=== PATIENT | female | born 1965 | race American Indian/Alaskan Native ===

== ENCOUNTER 2016-10-12 17:29 | Inpatient (IN) | payer OTHER ==
[~2016-10-12] VITALS: Ht 152.4 cm; Wt 102.5 kg
[~2016-10-12 17:29] MED LIST: ACET325 PO; AMIT50 PO; APIX5TAB PO; BISA PO; BRIM0.2S EACH EYE; CLEAPOW6 PO; COLL30OI3 TOP; DORZO2%O EACH EYE; GABA600T PO; GLUC1KIT IM; GLUC40GE PO; HYDR50TA15 PO; LACT10SO47 PO; LANTUS2P SQ; LISI-363 PO; METO25 PO; MONT10TA2 PO; NITR0.4S SL; NOVOLOGP2 SQ; PRAV40TA2 PO; PRIL20CA PO
[2016-10-12 18:11] VITALS: BP 110/57; PULSE 59; RESP 18; TEMP 98.8; O2SAT 97
[2016-10-12] MEDS ORDERED: SODIUM CHLOR 0.9% 1000 ML INJ 1,000 ML IV ONE (18:15)
--- NOTE | 2016-10-12 18:51 | PD ---
HPI . Abnormal labs Chief Complaint: Abnormal Results Time Seen by Provider: 18:09 Travel History International Travel<30 days: No Contact w/Intl Traveler<30days: No Traveled to known affect area: No History of Present Illness HPI This patient presents to us from a local halfway with the chief complaint of acute renal failure. She has reportedly had decreased urine output over the course the last several days. She has also been feeling very poorly over the last several days. She has had some labs checked at the halfway and her kidney function is markedly worse than her baseline. The patient is unaware of any moderating factors. I have reviewed her records from the halfway. Her medical history is significant for a chronic wound on her left lower extremity with osteomyelitis. He has been receiving antibiotics through a PICC line for probably a year now. At least, she was already on IV antibiotics when she was seen here in August 2015. I do not have any idea whether or not the antibiotics have been continuous. The patient states that she has developed red man syndrome from vancomycin. That has been a recent development. Other medical history includes atrial fibrillation, COPD, hypertension, diabetes , anemia, obesity, ALEXANDRA, previous PE previous GI bleed, blindness. Her previous creatinines done here had been in the 1-1.5 range. The patient has some labs from October 10 with repeat labs done today. 10/10: 10/12: BUN/creat 86/5.93 94/7.4 K+ 6.3 6.4 Hgb 7.4 She has a UA that is positive for UTI. She was reportedly treated with Kayexalate before being sent to us. PFSH Past Medical History Hx Anticoagulant Therapy: Yes Arthritis: Yes Asthma: No Autoimmune Disease: No Anxiety: No Depression: No (Patient states she is not depressed) Heart Rhythm Problems: No Cancer: No Cardiovascular Problems: No High Cholesterol: Yes Chemotherapy: No Chest Pain: No Congestive Heart Failure: Yes (recently noted with diastolic dysfunction) COPD: No Cerebrovascular Accident: Yes Diabetes: Yes Diminished Hearing: No Endocrine: Yes Gastrointestinal Disorders: Yes GERD: Yes Genitourinary: Yes Hiatal Hernia: No Hypertension: Yes Immune Disorder: No Implanted Vascular Access Dvce: Yes Kidney Stones: No Musculoskeletal: No Neurologic: Yes Psychiatric: No Reproductive: No Respiratory: Yes Immunizations Current: Yes Migraines: No Radiation Therapy: No Renal Failure: Yes (chronic renal insufficiency) Seizures: No Sickle Cell Disease: No Sleep Apnea: Yes (Non-compliant with CPAP) Thyroid Disease: No Ulcer: No ?: Not Past Surgical History Abdominal Surgery: No AICD: No Arteriovenous Shunt: No Cardiac Surgery: No Ear Surgery: No Endocrine Surgery: No Eye Surgery: Yes (cataracts, AUGUST 10) Genitourinary Surgery: No Gynecologic Surgery: No Hysterectomy: No Insulin Pump: No Joint Replacement: No Oral Surgery: No Pacemaker: No Thoracic Surgery: No Other Surgery: Yes (recent right eye scraping) Social History Alcohol Use: No Tobacco Use: No Substance Use: No Allergies-Medications (Allergen,Severity, Reaction): Coded Allergies: morphine (Unverified Allergy, Unknown, 09/26/16) vancomycin (Verified Adverse Reaction, Unknown, Rash, 10/12/16) Reported Meds & Prescriptions Reported Meds & Active Scripts Active Review of Systems Except as stated in HPI: all other systems reviewed are Neg Genitourinary: Positive: Decreased Urinary Output Musculoskeletal: Positive: Arthralgias (left shoulder pain) Skin: Positive Rash Neurologic: Positive: Change in Mentation Physical Exam Narrative GENERAL: This patient is sleepy but is able to give us some history. SKIN: warm/dry. She has a dressing on her left lower extremity which has not yet been removed. She has a diffuse macular rash. HEAD: Normocephalic. EYES: Pupils equal and round. No scleral icterus. No injection or drainage. She is blind. ENT: No nasal bleeding or discharge. Mucous membranes pink and moist. NECK: Trachea midline. Full range of motion without pain.. CARDIOVASCULAR: Irregular rhythm with a controlled rate. RESPIRATORY: No accessory muscle use. Clear to auscultation. Breath sounds equal bilaterally. GASTROINTESTINAL: Abdomen soft. Nontender. Bowel sounds present. Nondistended. . MUSCULOSKELETAL: No obvious deformities. NEUROLOGICAL: Awake and alert. No obvious cranial nerve deficits. Motor grossly within normal limits. Normal speech. PSYCHIATRIC: Appropriate mood and affect; insight and judgment normal. Data Data Last Documented VS Vital Signs Date Time Temp Pulse Resp B/P (MAP) Pulse Ox O2 Delivery O2 Flow Rate FiO2 10/12/16 18:16 59 18 97 Room Air 10/12/16 18:11 98.8 110/57 (74) Orders Orders Electrocardiogram (10/12/16 18:09) Complete Blood Count With Diff (10/12/16 18:09) Comprehensive Metabolic Panel (10/12/16 18:09) Lactic Acid Sepsis Protocol (10/12/16 18:09) Urinalysis - C+S If Indicated (10/12/16 18:09) Blood Culture (10/12/16 18:09) Chest, Single Ap (10/12/16 18:09) Ecg Monitoring (10/12/16 18:09) Iv Access Insert/Monitor (10/12/16 18:09) Oximetry (10/12/16 18:09) Sodium Chlor 0.9% 1000 Ml Inj (Ns 1000 M (10/12/16 18:15) MDM Medical Decision Making Medical Screen Exam Complete: Yes Emergency Medical Condition: Yes Medical Record Reviewed: Yes (please see the history of present illness for pertinent records) Differential Diagnosis Differential diagnosis includes acute renal failure, worsening chronic renal failure, prerenal azotemia Narrative Course This patient presents to us from a halfway because of acute renal failure and hyperkalemia. She has reportedly been treated with Kayexalate prior to arrival. Her care will be turned over to the oncoming physician pending her workup. Diagnosis Primary Impression: Acute renal failure Qualified Codes: N17.9 - Acute kidney failure, unspecified Additional Impressions: Hyperkalemia UTI (urinary tract infection) Qualified Codes: N30.00 - Acute cystitis without hematuria Greta Martell MD Oct 12, 2016 18:51
[2016-10-12 19:01] VITALS: BP 110/57; PULSE 59; RESP 16; O2SAT 97
--- NOTE | 2016-10-12 19:28 | RADRPT ---
EXAM DATE/TIME: 10/12/2016 18:24 [facility] COMPARISON: CHEST SINGLE AP, November 16, 2014, 20:52. INDICATIONS : Patient has general weakness and shortness of breath. MEDICAL HISTORY : Diabetes mellitus type 2. Hypertension. Stroke. Hyperkalemia SURGICAL HISTORY : Right eye surgery ENCOUNTER: Initial ACUITY: 1 day PAIN SCORE: 5/10 LOCATION: Left upper chest FINDINGS: The heart size is borderline enlarged. There is increased density seen at the left mid and lower lung . There is an area of linear density at the lateral right lung likely related to fluid in the right f issure. A significant effusion at the costophrenic angles is not seen. There is a PICC line in place from the right arm with the tip overlying the SVC. CONCLUSION: Suspected mild atelectasis or consolidation at the left base. The heart size is borderline enlarged. Ricco Fuentes MD on October 12, 2016 at 19:24 Board Certified Radiologist. This report was verified electronically.
[2016-10-12 19:37] LABS: AUTOMATED NEUTROPHIL # 6.7 TH/MM3 (1.8-7.7); BASOPHIL % 0.2 % (0.0-2.0); EOSINOPHIL # 0.2 TH/MM3 (0-0.4); EOSINOPHIL % 2.3 % (0.0-4.0); HEMATOCRIT 23.7 % (35.0-46.0); HEMO FLAGS DIFF FINAL; LYMPH % 8.2 % (9.0-44.0); LYMPHOCYTE # 0.7 TH/MM3 (1.0-4.8); MEAN CELL VOLUME 99.9 FL (80.0-100.0); MEAN CORPUSCULAR HEMOGLOBIN 31.8 PG (27.0-34.0); MEAN CORPUSCULAR HGB CONC 31.8 % (32.0-36.0); MONO % 6.4 % (0.0-8.0); NEUT % 82.9 % (16.0-70.0); PLATELET COUNT 240 TH/MM3 (150-450); RED BLOOD COUNT 2.37 MIL/MM3 (4.00-5.30); WHITE BLOOD COUNT 8.1 TH/MM3 (4.0-11.0)
[2016-10-12 19:51] LABS: ANION GAP 11 MEQ/L (5-15); AST (GOT) 14 U/L (15-37); BICARBONATE 15.8 MEQ/L (21.0-32.0); BLOOD UREA NITROGEN 88 MG/DL (7-18); CHLORIDE 111 MEQ/L (98-107); GLOMERULAR FILTRATION RATE 6 ML/MIN (>89); POTASSIUM 5.8 MEQ/L (3.5-5.1); SODIUM (NA) 138 MEQ/L (136-145)
[2016-10-12 19:53] LABS: ALT (GPT) 19 U/L (10-53)
[2016-10-12 19:55] LABS: ALKALINE PHOSPHATASE 404 U/L (45-117); TOTAL BILIRUBIN ADULT 0.6 MG/DL (0.2-1.0)
--- NOTE | 2016-10-12 20:05 | PD ---
Data Data Last Documented VS Vital Signs Date Time Temp Pulse Resp B/P (MAP) Pulse Ox O2 Delivery O2 Flow Rate FiO2 10/12/16 19:01 59 16 110/57 (74) 97 Room Air 10/12/16 18:11 98.8 Orders Orders Electrocardiogram (10/12/16 18:09) Complete Blood Count With Diff (10/12/16 18:09) Comprehensive Metabolic Panel (10/12/16 18:09) Lactic Acid Sepsis Protocol (10/12/16 18:09) Urinalysis - C+S If Indicated (10/12/16 18:09) Blood Culture (10/12/16 18:09) Chest, Single Ap (10/12/16 18:09) Ecg Monitoring (10/12/16 18:09) Iv Access Insert/Monitor (10/12/16 18:09) Oximetry (10/12/16 18:09) Sodium Chlor 0.9% 1000 Ml Inj (Ns 1000 M (10/12/16 18:15) Urinary Catheter Insert/Apply (10/12/16 19:25) Type And Screen (10/12/16 19:45) Random Vancomycin (10/12/16 20:01) Us Kidney/Renal/Bladder (10/12/16 ) Water Sterile For I... W/Sodium Bicarbon (10/12/16 20:15) Labs Laboratory Tests Test 10/12/16 18:15 White Blood Count 8.1 TH/MM3 Red Blood Count 2.37 MIL/MM3 Hemoglobin 7.5 GM/DL Hematocrit 23.7 % Mean Corpuscular Volume 99.9 FL Mean Corpuscular Hemoglobin 31.8 PG Mean Corpuscular Hemoglobin Concent 31.8 % Red Cell Distribution Width 20.0 % Platelet Count 240 TH/MM3 Mean Platelet Volume 8.1 FL Neutrophils (%) (Auto) 82.9 % Lymphocytes (%) (Auto) 8.2 % Monocytes (%) (Auto) 6.4 % Eosinophils (%) (Auto) 2.3 % Basophils (%) (Auto) 0.2 % Neutrophils # (Auto) 6.7 TH/MM3 Lymphocytes # (Auto) 0.7 TH/MM3 Monocytes # (Auto) 0.5 TH/MM3 Eosinophils # (Auto) 0.2 TH/MM3 Basophils # (Auto) 0.0 TH/MM3 CBC Comment DIFF FINAL Differential Comment Blood Urea Nitrogen 88 MG/DL Creatinine 7.53 MG/DL Random Glucose 130 MG/DL Total Protein 7.8 GM/DL Albumin 2.4 GM/DL Calcium Level 7.6 MG/DL Alkaline Phosphatase 404 U/L Aspartate Amino Transf (AST/SGOT) 14 U/L Alanine Aminotransferase (ALT/SGPT) 19 U/L Total Bilirubin 0.6 MG/DL Sodium Level 138 MEQ/L Potassium Level 5.8 MEQ/L Chloride Level 111 MEQ/L Carbon Dioxide Level 15.8 MEQ/L Anion Gap 11 MEQ/L Estimat Glomerular Filtration Rate 6 ML/MIN Lactic Acid Level 0.6 mmol/L MDM Supervised Visit with VIRGILIO: No Narrative Course The patient was initially evaluated by the previous provider in sign of any beginning of my shift pending labs and disposition. See her note for further details. Briefly this is a 51-year-old female with history of type 1 diabetes, COPD, legal blindness, anemia, hypertension, sent in from her shelter for worsening renal failure, decreased urine output, and generalized weakness. Apparently the patient has had worsening creatinine over the last several days. She was given Kayexalate in her shelter for hyperkalemia. Vital signs show heart rate 59, blood pressure 110/57, pulse ox 97% on room air , oral temp of 98.8F. Labs today show: Hemoglobin 7.5, hematocrit 23.7 BUN 88, creatinine 7.53, GFR 6, potassium 5.8, bicarbonate 15.8. Shah was placed with zero urine output. The patient was given a liter of normal saline IV by the previous provider. Case discussed with on-call steam tank operator Dr. Quiros. Patient is on IV vancomycin for lower extremity cellulitis. He would like a random vancomycin level to be ordered as well as a renal ultrasound. He would like the patient to be started on sterile water with 150 mg tablets of sodium bicarbonate at a rate of 100 cc per hour. Patient has history of chronic anemia. Her hemoglobin usually runs between 8 and 9. Today it is 7.5. Her stool is heme-negative and brown. Will hold on transfusion for now to avoid fluid overloading her. Case discussed with hospitalist Dr. Yen who will admit the patient to her service. Diagnosis Primary Impression: Acute renal failure Qualified Codes: N17.9 - Acute kidney failure, unspecified Additional Impressions: Hyperkalemia Anemia Qualified Codes: D64.9 - Anemia, unspecified Metabolic acidosis Admitting Information Admitting Physician Requests: Admit Shane Perdomo MD Oct 12, 2016 20:05
[2016-10-12] MEDS ORDERED: INSULIN HUMAN REGULAR 1,000 UNITS/10 ML VIAL IV PUSH ONE (20:15)
[2016-10-12] MEDS ORDERED: DEXTROSE 50% IN WATER 50 ML SYRINGE IV PUSH ONE (20:15)
[2016-10-12] MEDS ORDERED: SODIUM POLYSTYRENE SULFONATE SUSP 15 GM/60 ML CUP PO ONE (20:15)
[2016-10-12] MEDS ORDERED: SODIUM CHLORIDE 0.9% FLUSH 10 ML FLUSH IV FLUSH PRN (20:15)
[2016-10-12] MEDS ORDERED: GLUCAGON 1 MG/ML VIAL OTHER PRN (20:15)
[2016-10-12] MEDS ORDERED: SODIUM BICARBONATE 8.4% INJ 150 MEQ in WATER STERILE FOR INJ 850 ML IV SCH (20:15)
[2016-10-12] MEDS ORDERED: NALOXONE HCL 0.4 MG/ML AMP IV PRN (20:15)
[2016-10-12] MEDS ORDERED: CALCIUM GLUCONATE 10% 1 GM/10 ML VIAL IV PUSH ONE (20:15)
[2016-10-12] MEDS ORDERED: DEXTROSE 50% IN WATER 50 ML VIAL(D50) IV PRN (20:15)
[2016-10-12] MEDS ORDERED: INSULIN ASPART SUPPLEMENTAL SCALE SQ SCH (21:00)
[2016-10-12] MEDS: SODIUM CHLORIDE 0.9% FLUSH 10 ML FLUSH IV FLUSH SCH (21:00)
--- NOTE | 2016-10-12 22:27 | RADRPT ---
EXAM DATE/TIME: 10/12/2016 20:54 [facility] COMPARISON: US KIDNEY/RENAL/BLADDER, November 14, 2014, 16:54. INDICATIONS : Increased lab values. MEDICAL HISTORY : Hypercholesterolemia. Hypertension. Gastroesophageal reflux disease. Bilateral eye prosthesis. Cereb rovascular accident. Congestive heart failure. Chronic renal insufficiency. Arthritis. Diabetes. Depression. SURGICAL HISTORY : Cataracts surgery. ENCOUNTER: Initial ACUITY: 1 day PAIN SCORE: Nonresponsive. LOCATION: Bilateral flank MEASUREMENTS: RIGHT KIDNEY: 8.9 x 5.8 x 5.6 cm LEFT KIDNEY: 12.6 x 6.2 x 6.3 cm FINDINGS: RIGHT KIDNEY: Renal cortex is normal in thickness and echotexture. No hydronephrosis, stone, or mass. LEFT KIDNEY: Renal cortex is normal in thickness and echotexture. No hydronephrosis, stone, or mass. BLADDER: The bladder is not distended. CONCLUSION: Normal appearance of the kidneys. Ricco Fuentes MD on October 12, 2016 at 22:23 Board Certified Radiologist. This report was verified electronically.
[2016-10-12 23:00] VITALS: BP 105/51; PULSE 51; RESP 16; TEMP 98.7; O2SAT 94
[2016-10-12] MEDS ORDERED: CALCIUM GLUCONATE INJ 1 GM in SODIUM CHLORIDE 0.9% INJ 100 ML IV ONE (23:00)
[2016-10-12 23:41] LABS: POTASSIUM 5.7 MEQ/L (3.5-5.1)
[2016-10-13] VITALS (18 sets, daily range): BP systolic 74–144; BP diastolic 39–64; PULSE 47–72; RESP 12–18; TEMP 91–98; O2SAT 92–100
--- NOTE | 2016-10-13 00:24 | HHI.HP ---
HPI Service [facility] Primary Care Physician Ty Campbell MD Admission Diagnosis acute renal failure, anemia, hyperkalemia, metabolic acidosis Diagnoses: Chief Complaint: acute renal failure Travel History International Travel<30 Days: No Contact w/Intl Traveler <30 Da: No Traveled to Known Affected Are: No History of Present Illness Written by MARLON Saenz acting as scribe for [Yovana] on 10/13/16 at 00: 15. 51 y/o female with a history of DM, CVA, legally blind,neuropathy, COPD, HTN, anemia and sleep apnea was brought from a SNF to the ED for increasing renal failure. Patient states she has not been urinating since Sunday and a catheter was placed. She has been getting treated with lower extremity cellulitis with vancomycin and Zosyn through her picc line. She denies any chest pain, sob, fever, chills, nausea or diarrhea. She states she is in a wheelchair because she broke her left ankle and is unable to walk. She use to use a cpap at night but has not been for the last 6 months. Review of Systems Except as stated in HPI: all other systems reviewed are Neg Past Family Social History Past Medical History DM Legally blind COPD HTN anemia sleep apnea CVA neuropathy Afib Past Surgical History Patient denies any surgical history Reported Medications Reported Meds & Active Scripts Active Allergies: Coded Allergies: morphine (Unverified Allergy, Unknown, 09/26/16) vancomycin (Verified Adverse Reaction, Unknown, Rash, 10/12/16) Active Ordered Medications Current Medications Medications (Trade) Dose Ordered Sig/[place]air Route Start Time Stop Time Status Last Admin Sodium Bicarbonate 150 meq/Sterile Water 1,000 ml @ 100 mls/hr Q10H IV 10/12/16 20:15 10/12/16 23:39 (NS Flush) 2 ml UNSCH PRN IV FLUSH 10/12/16 20:15 (NS Flush) 2 ml BID IV FLUSH 10/12/16 21:00 (Heparin Inj) 5,000 units Q8H SQ 10/13/16 06:00 (Narcan Inj) 0.4 mg UNSCH PRN IV 10/12/16 20:15 (D50w (Vial) Inj) 50 ml UNSCH PRN IV 10/12/16 20:15 (Glucagon Inj) 1 mg UNSCH PRN OTHER 10/12/16 20:15 (NovoLOG SUPPLEMENTAL SCALE) 1 ACHS SLIDING SCALE SQ 10/12/16 21:00 Family History Patient denies any family history, no heart disease or cancer. Social History Patient denies any tobacco, alcohol or illicit drug use. Physical Exam Vital Signs Vital Signs Date Time Temp Pulse Resp B/P (MAP) Pulse Ox O2 Delivery O2 Flow Rate FiO2 10/12/16 23:00 98.7 51 16 105/51 (69) 94 10/12/16 19:01 59 16 110/57 (74) 97 Room Air 10/12/16 18:16 59 18 97 Room Air 10/12/16 18:11 98.8 59 18 110/57 (74) 97 Physical Exam GENERAL: This is a well-nourished, obese patient, in no apparent distress. morbidly obese SKIN: Erythema rash scattered on abdomen and bilateral thighs, non raised HEAD: Atraumatic. Normocephalic. No temporal or scalp tenderness. ENT: Nose without bleeding, purulent drainage or septal hematoma.Airway patent. NECK: Trachea midline. No JVD CARDIOVASCULAR: Regular rate and rhythm without murmurs, gallops, or rubs. RESPIRATORY: Clear to auscultation. Breath sounds equal bilaterally. No wheezes , rales, or rhonchi. GASTROINTESTINAL: Abdomen soft, non-tender, nondistended. No guarding. MUSCULOSKELETAL: Extremities without clubbing, cyanosis, or edema. No joint tenderness, effusion, or edema noted. No calf tenderness. chronic LE skin changes NEUROLOGICAL: Awake and alert. Motor and sensory grossly within normal limits. Normal speech. Laboratory Laboratory Tests Test 10/12/16 18:15 10/12/16 23:05 White Blood Count 8.1 Red Blood Count 2.37 Hemoglobin 7.5 Hematocrit 23.7 Mean Corpuscular Volume 99.9 Mean Corpuscular Hemoglobin 31.8 Mean Corpuscular Hemoglobin Concent 31.8 Red Cell Distribution Width 20.0 Platelet Count 240 Mean Platelet Volume 8.1 Neutrophils (%) (Auto) 82.9 Lymphocytes (%) (Auto) 8.2 Monocytes (%) (Auto) 6.4 Eosinophils (%) (Auto) 2.3 Basophils (%) (Auto) 0.2 Neutrophils # (Auto) 6.7 Lymphocytes # (Auto) 0.7 Monocytes # (Auto) 0.5 Eosinophils # (Auto) 0.2 Basophils # (Auto) 0.0 CBC Comment DIFF FINAL Differential Comment Blood Urea Nitrogen 88 90 Creatinine 7.53 7.55 Random Glucose 130 142 Total Protein 7.8 Albumin 2.4 Calcium Level 7.6 7.6 Alkaline Phosphatase 404 Aspartate Amino Transf (AST/SGOT) 14 Alanine Aminotransferase (ALT/SGPT) 19 Total Bilirubin 0.6 Sodium Level 138 140 Potassium Level 5.8 5.7 Chloride Level 111 112 Carbon Dioxide Level 15.8 15.0 Anion Gap 11 13 Estimat Glomerular Filtration Rate 6 6 Lactic Acid Level 0.6 Random Vancomycin Level 21.6 Date/Time Source Procedure Growth Status 10/12/16 18:30 Blood Peripheral Aerobic Blood Culture Pending Received 10/12/16 18:30 Blood Peripheral Anaerobic Blood Culture Pending Received Result Diagram: 10/12/16 1815 10/12/16 2305 Imaging Last Impressions Chest X-Ray 10/12/16 1809 Signed Impressions: Service Date/Time: September 18:24 - CONCLUSION: Suspected mild atelectasis or consolidation at the left base. The heart size is borderline enlarged. Ricco Fuentes MD Renal Ultrasound 10/12/16 0000 Signed Impressions: Service Date/Time: September 20:54 - CONCLUSION: Normal appearance of the kidneys. Ricco Fuentes MD Caprini VTE Risk Assessment Caprini VTE Risk Assessment: Mod/High Risk (score >= 2) Caprini Risk Assessment Model Point Value = 1 Point Value = 2 Point Value = 3 Point Value = 5 Age 41-60 Minor surgery BMI > 25 kg/m2 Swollen legs Varicose veins or History of unexplained or recurrent spontaneous Oral contraceptives or hormone replacement Sepsis (< 1 month) Serious lung disease, including pneumonia (< 1 month) Abnormal pulmonary function Acute myocardial infarction Congestive heart failure (< 1 month) History of inflammatory bowel disease Medical patient at bed rest Age 61-74 Arthroscopic surgery Major open surgery (> 45 min) Laparoscopic surgery (> 45 min) Malignancy Confined to bed (> 72 hours) Immobilizing plaster cast Central venous access Age >= 75 History of VTE Family history of VTE Factor V Leiden Prothrombin [id number] Lupus anticoagulant Anticardiolipin antibodies Elevated serum homocysteine Heparin-induced thrombocytopenia Other congenital or acquired thrombophilia Stroke (< 1 month) Elective arthroplasty Hip, pelvis, or leg fracture Acute spinal cord injury (< 1 month) Prophylaxis Regimen Total Risk Factor Score Risk Level Prophylaxis Regimen 0-1 Low Early ambulation 2 Moderate Order ONE of the following: *Sequential Compression Device (SCD) *Heparin 5000 units SQ BID 3-4 Higher Order ONE of the following medications: *Heparin 5000 units SQ TID *Enoxaparin/Lovenox 40 mg SQ daily (WT < 150 kg, CrCl > 30 mL/min) *Enoxaparin/Lovenox 30 mg SQ daily (WT < 150 kg, CrCl > 10-29 mL/min) *Enoxaparin/Lovenox 30 mg SQ BID (WT < 150 kg, CrCl > 30 mL/min) AND/OR *Sequential Compression Device (SCD) 5 or more Highest Order ONE of the following medications: *Heparin 5000 units SQ TID (Preferred with Epidurals) *Enoxaparin/Lovenox 40 mg SQ daily (WT < 150 kg, CrCl > 30 mL/min) *Enoxaparin/Lovenox 30 mg SQ daily (WT < 150 kg, CrCl > 10-29 mL/min) *Enoxaparin/Lovenox 30 mg SQ BID (WT < 150 kg, CrCl > 30 mL/min) AND *Sequential Compression Device (SCD) Assessment and Plan Problem List: (1) Acute renal failure ICD Code: N17.9 - Acute kidney failure, unspecified Status: Acute (2) Hyperkalemia ICD Code: E87.5 - Hyperkalemia Status: Acute (3) HTN (hypertension) ICD Code: I10 - Hypertension Status: Chronic (4) Diabetes mellitus type 2, uncontrolled ICD Code: E11.65 - Uncontrolled type 2 diabetes mellitus Status: Chronic Assessment and Plan 51 y/o female with a history of DM, CVA, legally blind,neuropathy, COPD, HTN, anemia and sleep apnea was brought from a SNF to the ED for increasing renal failure. Acute renal failure, creatinine 7.5, baseline 1.2, patient was on vacomyacin for cellulitis, vancomycin level 21.6 -Consult nephrology for recommendations, ED physician discussed case with Dr. Quiros who will see patient in AM -Renal ultrasound ordered, reviewed and shows normal appearance of the kidneys -IVF sodium bicarbonate 150meq and sterile water -Avoid nephrotoxins Hyperkalemia, potassium 5.8--> 5.7 -Treated with Kayexalate, D5 calcium and insulin -Patient may need hemodialysis -BMP in AM Anemia, chronic hemoglobin 7.5 -Continue to monitor and trend CBC COPD with Sleep apnea, chronic -CPAP at bedtime -Atrovent scheduled and when necessary Diabetes, chronic -Accu-Cheks with sliding scale insulin -Cont home long acting insulin HTN, chronic -Cont home medications -Monitor vitals DVT prophylaxis: Heparin This note was transcribed by scribe [Kylee Quinones]. I, Dr. Perico Yen personally performed the history, physical exam, and medical decision making; and confirmed the accuracy of the information in the transcribed note. Authenticated by Dr. Perico Yen on 10/13/16 at 00:15. Discussed Condition With Patient, RN, ED physician Physician Certification 2 Midnight Certification Type: Admission for Inpatient Services Order for Inpatient Services The services are ordered in accordance with Medicare regulations or non- Medicare payer requirements, as applicable. In the case of services not specified as inpatient-only, they are appropriately provided as inpatient services in accordance with the 2-midnight benchmark. Estimated LOS (days): 3 days is the estimated time the patient will need to remain in the hospital, assuming treatment plan goals are met and no additional complications. Post-Hospital Plan: SNF Problem Qualifiers (1) Acute renal failure: Qualified Codes: N17.9 - Acute kidney failure, unspecified Kylee Quinones Oct 13, 2016 00:24 Perico Yen MD Oct 13, 2016 05:02
[2016-10-13] MEDS ORDERED: AMIT50TA3 PO (00:33)
[2016-10-13] MEDS ORDERED: APIX2.5T PO (00:33)
[2016-10-13] MEDS ORDERED: GABA600T PO (00:33)
[2016-10-13] MEDS ORDERED: POLY17S PO (00:33)
[2016-10-13] MEDS ORDERED: LABE200T2 PO (00:33)
[2016-10-13] MEDS ORDERED: HYDR-3801 PO (00:33)
[2016-10-13] MEDS ORDERED: NYST15T TOPICAL (00:33)
[2016-10-13] MEDS ORDERED: PRAV40TA2 PO (00:33)
[2016-10-13] MEDS ORDERED: VITA250C3 CHEW (00:33)
[2016-10-13] MEDS ORDERED: NOVOLOGP2 SQ (00:33)
[2016-10-13] MEDS ORDERED: MONT10TA2 PO (00:33)
[2016-10-13] MEDS ORDERED: LACTTAB8 PO (00:33)
[2016-10-13] MEDS ORDERED: DIFL100T PO (00:33)
[2016-10-13] MEDS ORDERED: CLAR10CA3 PO (00:33)
[2016-10-13] MEDS ORDERED: ALBU0.08 NEB (00:33)
[2016-10-13] MEDS ORDERED: NIFE1TAB86 PO (00:33)
[2016-10-13] MEDS ORDERED: LANTUS2P SQ ×2 (00:33)
[2016-10-13] MEDS ORDERED: RESP: IPRATROPIUM 0.5 MG/2.5 ML NEB NEB PRN (00:45)
[2016-10-13 02:52] LABS: POTASSIUM 5.2 MEQ/L (3.5-5.1)
[2016-10-13 04:43] LABS: BLOOD GAS BASE EXCESS -11.9 mmol/L (-2-2); BLOOD GAS CARBOXYHEMOGLOBIN 1.8 % (0-4); BLOOD GAS HCO3 16 mmol/L (22-26); BLOOD GAS METHEMOGLOBIN 0.8 % (0-2); BLOOD GAS O2 HGB SATURATION 96 % (90-100); BLOOD GAS OXYGEN CONTENT 10.5 Vol % (12.0-20.0); BLOOD GAS PCO2 48 mmHg (38-42); BLOOD GAS PO2 139 mmHg (61-120); BLOOD GAS TOTAL HGB 7.6 G/DL (12.0-16.0); TEMP CORR TO 98.6
[2016-10-13 04:44] LABS: CRITICAL VALUE YES; DRAW SITE RT RADIAL; LITER FLOW 3 L/M; NUMBER OF ARTERIAL PUNCTURES 1; OXYGEN DEVICE NASAL CANNULA; STAT YES; ULNAR PULSE PRESENT
[2016-10-13] MEDS ORDERED: SODIUM CHLOR 0.9% 1000 ML INJ 1,000 ML IV ONE (04:45)
[2016-10-13] MEDS ORDERED: ATROPINE SULFATE 1 MG/10 ML SYRINGE IV ONE (05:00)
[2016-10-13] MEDS ORDERED: SODIUM BICARBONATE 8.4% INJ 50 MEQ/50 ML SYR IV ONE (05:00)
[2016-10-13] MEDS ORDERED: INSULIN DETEMIR 100 UNITS/ML VIAL SQ SCH ×2 (07:00→21:00)
[2016-10-13] MEDS ORDERED: NOREPINEPHRINE-DEXTROSE DRIP 250 ML IV ONE (07:25)
[2016-10-13] MEDS ORDERED: DEXTROSE 50% IN WATER 50 ML VIAL(D50) IV PUSH PRN (07:30)
[2016-10-13] MEDS ORDERED: NOREPINEPHRINE-DEXTROSE DRIP 250 ML IV PRN (07:30)
[2016-10-13] MEDS ORDERED: TERBUTALINE INJ 1 MG/ML AMP SQ PRN (07:30)
[2016-10-13] MEDS ORDERED: SODIUM BICARBONATE 8.4% INJ 50 MEQ/50 ML SYR IV PUSH ONE (07:30)
--- NOTE | 2016-10-13 07:31 | PD.CONS ---
[facility] Service Critical Care Medicine Consult Requested By Hospitalist Service Reason for Consult Hypotension, altered mental status Primary Care Physician Ty Campbell MD History of Present Illness This is a 51yF from a SNF who was being treated for chronic LLE cellulitis with approximately 6 months of vancomycin through an indwelling right arm PICC line, who presents with worsening creatinine found at her SNF and altered mental status. On arrival to the ED, she had a Cr 7.7, has a chronic indwelling black catheter and has not had any urine per report in the last few days. Renal ultrasound was negative for hydronephrosis. She also has a excoriating rash over her trunk and arms. She was initially admitted to the floor, but rapid responsed for hypotension and altered mental status. On my evaluation in the ICU , she is very altered and a poor historian. She endorses needing to have a bowel movement, though she has a rectal tube in place with large amount of liquid stool. She is quite agitated and is preventing a full history and physical exam. On bedside critical care echocardiogram, she has a hyperdynamic LV, mildly dilated RV, and clinically significant tricuspid regurgitation with an estimated trans-tricuspid gradient of ~60 mmHg. There is no pericardial effusion. IVC is dilated at 2.5cm without any respiratory variation. Critical care medicine is consulted to evaluate and manage her hypotension and altered mental status. She is additionally severely acidotic with a pH of 7.1, base deficit 10, pco2 48: she is not compensating appropriately. The remainder of the history is found from chart review due to the patient's clinical condition. Review of Systems ROS Limitations: Clinical Condition, Altered Mental Status, Uncooperative, Poor Historian Past Family Social History Allergies: Coded Allergies: morphine (Unverified Allergy, Unknown, 09/26/16) vancomycin (Verified Adverse Reaction, Unknown, Rash, 10/12/16) Past Medical History DM Legally blind COPD HTN anemia sleep apnea CVA neuropathy Afib Past Surgical History Patient denied any surgical history Reported Medications unknown and unobtainable secondary to the clinical condition of the patient. Per chart review, she was receiving IV vancomycin for chronic LLE cellulitis for an extended period of time. Active Ordered Medications See MAR Family History Patient denies any family history, no heart disease or cancer. Social History Patient denies any tobacco, alcohol or illicit drug use. Physical Exam Vital Signs Vital Signs Date Time Temp Pulse Resp B/P (MAP) Pulse Ox O2 Delivery O2 Flow Rate FiO2 10/13/16 07:20 95 21 10/13/16 04:45 99 Nasal Cannula 3.00 10/13/16 00:00 92.7 54 16 89/54 (66) 97 10/12/16 23:00 98.7 51 16 105/51 (69) 94 10/12/16 19:01 59 16 110/57 (74) 97 Room Air 10/12/16 18:16 59 18 97 Room Air 10/12/16 18:11 98.8 59 18 110/57 (74) 97 Physical Exam gen: middle-aged, morbidly obese female, lying in bed, altered, slightly agitated heent: perrl. mucous membranes moist. large tongue. neck: very large neck circumference. unable to assess jvd. trachea midline. chest: equal chest rise. distant breath sounds. clear to auscultation. cv: hypotensive, sbp 80s. bradycardic rate, regular rhythm, sinus by telemetry. abd: morbidly obese, soft, nontender, nondistended. rectal tube in place with liquid brown stool extr: 3+ peripheral edema. LLE wrapped in kierra bandage. distal pulses 1+. skin: there is a maculopapular rash which has areas of excoriation and scaling over the trunk and upper arms bilaterally. it does not ed[place]. neuro: RASS -2 or +1 intermittently. oriented to person and place. at times confused. moves all extremities and will follow commands volitionally. Laboratory Laboratory Tests Test 10/12/16 18:15 10/12/16 23:05 10/13/16 02:15 10/13/16 04:23 White Blood Count 8.1 Red Blood Count 2.37 Hemoglobin 7.5 Hematocrit 23.7 Mean Corpuscular Volume 99.9 Mean Corpuscular Hemoglobin 31.8 Mean Corpuscular Hemoglobin Concent 31.8 Red Cell Distribution Width 20.0 Platelet Count 240 Mean Platelet Volume 8.1 Neutrophils (%) (Auto) 82.9 Lymphocytes (%) (Auto) 8.2 Monocytes (%) (Auto) 6.4 Eosinophils (%) (Auto) 2.3 Basophils (%) (Auto) 0.2 Neutrophils # (Auto) 6.7 Lymphocytes # (Auto) 0.7 Monocytes # (Auto) 0.5 Eosinophils # (Auto) 0.2 Basophils # (Auto) 0.0 CBC Comment DIFF FINAL Differential Comment Blood Urea Nitrogen 88 90 90 Creatinine 7.53 7.55 7.70 Random Glucose 130 142 126 Total Protein 7.8 Albumin 2.4 Calcium Level 7.6 7.6 7.8 Alkaline Phosphatase 404 Aspartate Amino Transf (AST/SGOT) 14 Alanine Aminotransferase (ALT/SGPT) 19 Total Bilirubin 0.6 Sodium Level 138 140 140 Potassium Level 5.8 5.7 5.2 Chloride Level 111 112 114 Carbon Dioxide Level 15.8 15.0 14.0 Anion Gap 11 13 12 Estimat Glomerular Filtration Rate 6 6 6 Lactic Acid Level 0.6 Random Vancomycin Level 21.6 Blood Gas Puncture Site RT RADIAL Blood Gas Patient Temperature 98.6 Blood Gas HCO3 16 Blood Gas Base Excess -11.9 Blood Gas Oxygen Saturation 96 Arterial Blood pH 7.14 Arterial Blood Partial Pressure CO2 48 Arterial Blood Partial Pressure O2 139 Arterial Blood Oxygen Content 10.5 Arterial Blood Carboxyhemoglobin 1.8 Arterial Blood Methemoglobin 0.8 Blood Gas Hemoglobin 7.6 Oxygen Delivery Device NASAL CANNULA Blood Gas Liter Flow 3 Date/Time Source Procedure Growth Status 10/12/16 18:30 Blood Peripheral Aerobic Blood Culture Pending Received 10/12/16 18:30 Blood Peripheral Anaerobic Blood Culture Pending Received Result Diagram: 10/12/165 10/13/16 0215 Imaging Last Impressions Chest X-Ray 10/12/16 180 Signed Impressions: Service Date/Time: September 18:24 - CONCLUSION: Suspected mild atelectasis or consolidation at the left base. The heart size is borderline enlarged. Ricco Fuentes MD Renal Ultrasound 10/12/16 0000 Signed Impressions: Service Date/Time: September 20:54 - CONCLUSION: Normal appearance of the kidneys. Ricco Fuentes MD Assessment and Plan Assessment and Plan Assessment: 51yF with LLE cellulitis presents now with severe oligoanuric acute kidney injury and associated metabolic encephalopathy and hypotension. Although she does not have a leukocytosis, her anion-gap metabolic acidosis, her tachypnea, hypotension, hypothermia would all suggest that she could have underlying and ongoing severe sepsis with end-organ dysfunction, possibly progressing to septic shock. Her RV dilation with what may be severe tricuspid regurgitation additionally may be playing a clinically significant role in her hypotension. We will start epinephrine for RV support and inotropic support and norepinephrine as needed to keep MAP > 65 mmHg. She will likely need emergent dialysis for her acidosis as well as her severe uremia with metabolic encephalopathy, and nephrology has been consulted. ID is consulted to help discern the cause of the rash and if there is ongoing concomitant sepsis. I have placed the patient on Clindamycin to cover for MRSA bacteremia (given concern for vanc toxicity and vanc rash) and zosyn empirically for health care associated infections. She will need her PICC line and Black discontinued and new central access obtained as well as likely dialysis access. She is very altered and may not cooperate with her medical care, though she does clearly states she wants us to be aggressive and "fix her." She may progress to requiring intubation for either her progressive respiratory failure or our need to safely manage her multiple end-organ dysfunctions. She remains critically ill at this time with multiple organ systems which are currently life- threatening. Plan by systems: Neurologic: Metabolic Encephalopathy secondary to Uremia and possibly sepsis - frequent neuro checks - avoid long-acting sedating meds Respiratory: Obesity Hypoventilation Syndrome COPD Sleep Apnea - wean o2 for goal spo2 > 90% - aggressive incentive spirometry Cardiovascular: Severe sepsis Clinically significant Tricuspid Regurgitation Hypotension- likely secondary to severe sepsis Sinus bradycardia - epinephrine @ 2 mcg/min - levophed for goal map > 65 mmHg - place central access, d/c PICC line - place arterial line Renal: Acute oligo anuric kidney injury - nephrology consult - likely needs emergent IHD - likely will need vascath today -- Strict I/Os FEN/GI: Severe anion gap metabolic acidosis Severe non-anion gap metabolic acidosis (combined) Hyperkalemia Morbid Obesity - NPO while altered - may need HD for hyperkalemia. s/p medical management with kayexalate, d50, insulin. - trend lactates - 4 amps bicarb now for severe acidosis to help with cardiac function Heme/ID: Chronic anemia- likely secondary to chronic disease Possible severe sepsis LLE cellulitis - daily cbc - will not transfuse at this time given concern for possible volume overload from acute kidney injury - clindamycin and zosyn empirically - follow up cultures. - ID consult Endocrine: Diabetes -- SSI, medium scale, every 6 Prophylaxis: GI Prophylaxis Does not meet evidence based criteria for GI prophylaxis at this time DVT Prophylaxis -- SCDs Sub-cutaneous heparin Lines: - outside facility right arm PICC Line: will d/c and culture tip - outside facility black: will change out - will place arterial line, central line. will discuss with nephrology, likely will need vascath as well. Dispo: remain in the ICU. very critically ill today. This patient remains critically ill with one or more organ systems which are or may become a threat to life. I have spent in excess of 110 minutes discontinuously in the care and management of this patient. This time is exclusive of procedures, and includes, but is not limited to, evaluation of the patient, review of the medical record, discussions with family, consultants, nursing staff, or respiratory therapy, and documentation in the medical record. Code Status Full Code Jordon Haines MD Oct 13, 2016 07:31
[2016-10-13] MEDS ORDERED: NOREPINEPHRINE 16 MG/D5W 250 ML IV PRN ×2 (08:00)
[2016-10-13] MEDS ORDERED: LINEZOLID 600 MG PREMIX 300 ML IV SCH (08:00)
[2016-10-13] MEDS: LACTOBACILLUS ACIDOPHILUS TAB PO SCH ×3 (08:00→16:28)
[2016-10-13] MEDS ORDERED: SODIUM BICARBONATE 8.4% INJ 150 MEQ in DEXTROSE 5% IN WATE 1000ML INJ 1,000 ML IV SCH ×2 (08:00)
[2016-10-13] MEDS ORDERED: EPINEPHrine (1:1000) INJ 2 MG in DEXTROSE 5% IN WATER INJ 250 ML IV PRN ×2 (08:15)
[2016-10-13] MEDS ORDERED: MIDAZOLAM HCL 2 MG/2 ML VIAL IV PUSH ONE (08:15)
[2016-10-13] MEDS ORDERED: KETAMINE HCL 500 MG/5 ML VIAL IV PUSH ONE (08:15)
[2016-10-13] MEDS: RESP: IPRATROPIUM 0.5 MG/2.5 ML NEB NEB SCH ×3 (08:32→20:53)
--- NOTE | 2016-10-13 08:33 | PD.PROCEDR ---
Procedure Note Procedure Procedure: Arterial Line Placement Left radial arterial line Diagnosis: Septic shock Indications: Need for beat to beat hemodynamic monitoring Consent: Emergent Description of the Procedure: The left wrist was prepped and draped sterilely. 1% lidocaine was used for local anesthesia. The pulse was located and a needle was advanced into the artery. A 20 gauge, 12 cm catheter was advanced into the artery using a modified Seldinger technique. The catheter was sutured to the skin and a sterile dressing was applied. The catheter was connected to a pressure transducer and an arterial waveform was noted. There were no immediate complications noted. There was minimal EBL. I personally performed the procedure. Jordon Haines MD Oct 13, 2016 08:33
[2016-10-13] MEDS ORDERED: CLINDAMYCIN INJ 900 MG in SODIUM CHLORIDE 0.9% INJ 100 ML IV SCH (09:00)
[2016-10-13] MEDS ORDERED: PIPERACIL-TAZO 2.25 GM PREMIX 50 ML IV SCH (09:00)
[2016-10-13] MEDS ORDERED: NIFEdipine 60 MG SUSTAINED RELEASE TAB PO SCH (09:00)
[2016-10-13] MEDS ORDERED: LABETALOL HCL 200 MG TAB PO SCH (09:00)
[2016-10-13] MEDS ORDERED: LORATADINE 10 MG TAB PO SCH (09:00)
[2016-10-13] MEDS ORDERED: hydrALAZINE HCL 100 MG TAB PO SCH (09:00)
[2016-10-13] MEDS ORDERED: PRAVASTATIN SOD 40 MG TAB PO SCH (09:00)
[2016-10-13] MEDS ORDERED: EPINEPHrine 8 MG/D5W 250 ML IV PRN ×2 (09:00)
--- NOTE | 2016-10-13 10:26 | RADRPT ---
EXAM DATE/TIME: 10/13/2016 08:57 [facility] COMPARISON: No previous studies available for comparison. INDICATIONS : Bilateral leg edema. MEDICAL HISTORY : Hypercholesterolemia. Hypertension. Gastroesophageal reflux disease. Bilateral eye prosthesis. Cerebr ovascular accident. Congestive heart failure. Chronic renal insufficiency. Arthritis. Diabetes. Depre ssion. SURGICAL HISTORY : Cataract surgery. ENCOUNTER: Initial ACUITY: 1 day PAIN SCORE: 4/10 LOCATION: Bilateral legs. TECHNIQUE: Venous ultrasound of the left and right leg was performed from the inguinal ligament to the proximal calf. Real-time, color Doppler and spectral tracing, compression and augmentation techniques were us ed. FINDINGS: The examination is limited by the patient's lack of mobility as well as body habitus. RIGHT LEG: There is normal compressibility of the deep venous system from the inguinal region to the proximal ca lf. No echogenic clot is seen in the lumen of the common femoral, femoral, popliteal, and posterior tibial veins. There are limitations to the superficial femoral vein evaluation. There is a normal res ponse of the venous system to proximal and distal augmentation and respiration. LEFT LEG: There is normal compressibility of the deep venous system from the inguinal region to the proximal ca lf. No echogenic clot is seen in the lumen of the common femoral, femoral, popliteal, and posterior tibial veins. There are limitations to the superficial femoral vein evaluation. There is a normal res ponse of the venous system to proximal and distal augmentation and respiration. CONCLUSION: 1. Study has some limitations as detailed above. No DVT observed. Wilner Potter Jr., MD on October 13, 2016 at 10:21 Board Certified Radiologist. This report was verified electronically.
--- NOTE | 2016-10-13 10:28 | RADRPT ---
EXAM DATE/TIME: 10/13/2016 09:17 [facility] COMPARISON: No previous studies available for comparison. INDICATIONS : Bilateral arm edema. MEDICAL HISTORY : Hypercholesterolemia. Hypertension. Gastroesophageal reflux disease. Bilateral eye prosthesis. Cerebr ovascular accident. Congestive heart failure. Chronic renal insufficiency. Arthritis. Diabetes. Depr ession. SURGICAL HISTORY : Cataracts surgery. ENCOUNTER: Initial ACUITY: 1 day PAIN SCORE: 4/10 LOCATION: Bilateral arms. FINDINGS: RIGHT UPPER EXTREMITY: There is spontaneous flow documented in the brachial, basilic, cephalic, axillary, and subclavian vei ns. The vessels are compressible and augmentation response is documented. No filling defects are se en. The flow is phasic with respiration. Direction of flow in the jugular vein is caudal. LEFT UPPER EXTREMITY: There is spontaneous flow documented in the brachial, basilic, cephalic, axillary, and subclavian vei ns. The vessels are compressible and augmentation response is documented. No filling defects are se en. The flow is phasic with respiration. Direction of flow in the jugular vein is caudal. CONCLUSION: 1. No DVT. 2. Subcutaneous edema observed. Wilner Potter Jr., MD on October 13, 2016 at 10:25 Board Certified Radiologist. This report was verified electronically.
[2016-10-13] MEDS ORDERED: SODIUM BICARBONATE 8.4% SOLN 50 MEQ/50 ML VIAL IV PUSH ONE (11:30)
[2016-10-13] MEDS: INSULIN NovoLIN REGULAR SUPPLEMENTAL SCALE SQ SCH ×2 (12:00→18:00)
[2016-10-13 12:55] LABS: BLOOD GAS BASE EXCESS -8.4 mmol/L (-2-2); BLOOD GAS HCO3 17 mmol/L (22-26); BLOOD GAS METHEMOGLOBIN 0.8 % (0-2); BLOOD GAS O2 HGB SATURATION 87 % (90-100); BLOOD GAS OXYGEN CONTENT 9.5 Vol % (12.0-20.0); BLOOD GAS PCO2 40 mmHg (38-42); BLOOD GAS PO2 66 mmHg (61-120); BLOOD GAS TOTAL HGB 7.6 G/DL (12.0-16.0); TEMP CORR TO 98.6
[2016-10-13 12:56] LABS: CRITICAL VALUE YES; DRAW SITE ART LINE; FIO2 21 %; STAT NO; ULNAR PULSE PRESENT
[2016-10-13] MEDS ORDERED: MIDAZOLAM HCL 5 MG/5 ML VIAL IV PUSH ONE (13:15)
[2016-10-13] MEDS ORDERED: ROCURONIUM INJ 100 MG/10 ML VIAL IV ONE (13:15)
[2016-10-13] MEDS ORDERED: ETOMIDATE 20 MG/10 ML VIAL IV PUSH ONE (13:15)
[2016-10-13] MEDS ORDERED: MIDAZOLAM HCL 5 MG/ML VIAL (1 ML) ONE (13:20)
[2016-10-13 13:33] LABS: AUTOMATED NEUTROPHIL # 7.7 TH/MM3 (1.8-7.7); BASOPHIL % 0.2 % (0.0-2.0); EOSINOPHIL # 0.1 TH/MM3 (0-0.4); EOSINOPHIL % 1.1 % (0.0-4.0); HEMATOCRIT 24.4 % (35.0-46.0); LYMPH % 7.2 % (9.0-44.0); LYMPHOCYTE # 0.6 TH/MM3 (1.0-4.8); MEAN CORPUSCULAR HEMOGLOBIN 30.8 PG (27.0-34.0); MEAN CORPUSCULAR HGB CONC 31.4 % (32.0-36.0); MONO % 5.3 % (0.0-8.0); NEUT % 86.2 % (16.0-70.0); PLATELET COUNT 285 TH/MM3 (150-450); RED BLOOD COUNT 2.49 MIL/MM3 (4.00-5.30); RED CELL DISTRIBUTION WIDTH 19.4 % (11.6-17.2); WHITE BLOOD COUNT 8.9 TH/MM3 (4.0-11.0)
[2016-10-13 13:58] LABS: HEMO FLAGS AUTO DIFF
--- NOTE | 2016-10-13 13:59 | PD.ID.CON ---
History of Present Illness Service ID Consult Requested By Reason for Consult Evaluation and Mment of Severe Sepsis with MODS, Possible line related infection , Acute osteomyelitis. Primary Care Physician Ty Campbell MD Diagnoses: History of Present Illness Most of the history was from review of medical records. is a 51 y/o F from a SNF who was being treated for chronic LLE cellulitis, non healing ulcer. Patient's past medical history significant for diabetes type 2 uncontrolled, diabetic nephropathy with baseline creatinine of 1.2, legal blindness likely secondary to diabetic retinopathy. She has a history of recurrent cellulitis and a nonhealing ulcer and has been treated for osteomyelitis in the past. Patient has been treated with IV antibiotics using PICC line in the past. Per discussion with her PCP at [facility] patient has received IV antibiotics multiple times in the past. She was being followed by wound care at [facility] and decision was made to start IV antibiotics Vanco IV and possibly Zosyn IV using a PICC line. Unknown duration of PICC line at this point. Patient presents with worsening creatinine found at her SNF and altered mental status. On arrival to the ED, she had a Cr 7.7, has a chronic indwelling black catheter and has not had any urine per report in the last few days. Renal ultrasound was negative for hydronephrosis. She also has a excoriating rash over her trunk and arms. She was initially admitted to the floor, but rapid response called for hypotension and altered mental status. She was severely acidotic with a pH of 7.1, base deficit 10, pco2 48. At the time of my evaluation patient is currently in intensive care unit and has been intubated for altered mental status. Patient is also undergoing placement of PICC line. She has no urine output and has a Black bag in place. This Black was present on admission. She also had diarrhea on admission. Her risk factors for C. difficile her prior antibiotic usage and pen[facility]entiary placement. She is currently sedated and not on any vasopressors. Infectious disease is consulted for evaluation and management of severe sepsis with multiorgan dysfunction syndrome, possible line related infection, acute osteomyelitis. Review of Systems ROS Limitations: Intubated, Altered Mental Status Past Family Social History Allergies: Coded Allergies: morphine (Unverified Allergy, Unknown, 09/26/16) vancomycin (Verified Adverse Reaction, Unknown, Rash, 10/12/16) Past Medical History DM Legally blind COPD HTN anemia sleep apnea CVA neuropathy Afib Past Surgical History None per EMR notes. Reported Medications Last Impressions Upper Extremity Ultrasound 10/13/16 0000 Signed Impressions: Service Date/Time: Thursday, October 13, 2016 09:17 - CONCLUSION: 1. No DVT. 2. Subcutaneous edema observed. Wilner Potter Jr., MD Lower Extremity Ultrasound 10/13/16 0000 Signed Impressions: Service Date/Time: Thursday, October 13, 2016 08:57 - CONCLUSION: 1. Study has some limitations as detailed above. No DVT observed. Wilner Potter Jr., MD Chest X-Ray 10/12/16 1809 Signed Impressions: Service Date/Time: September 18:24 - CONCLUSION: Suspected mild atelectasis or consolidation at the left base. The heart size is borderline enlarged. Ricco Fuentes MD Renal Ultrasound 10/12/16 0000 Signed Impressions: Service Date/Time: , October 12, 2016 20:54 - CONCLUSION: Normal appearance of the kidneys. Ricco Fuentes MD Active Ordered Medications Current Medications Medications (Trade) Dose Ordered Sig/Adair Route Start Time Stop Time Status Last Admin (NS Flush) 2 ml UNSCH PRN IV FLUSH 10/12/16 20:15 (NS Flush) 2 ml BID IV FLUSH 10/12/16 21:00 (Heparin Inj) 5,000 units Q8H SQ 10/13/16 06:00 (Narcan Inj) 0.4 mg UNSCH PRN IV 10/12/16 20:15 (Glucagon Inj) 1 mg UNSCH PRN OTHER 10/12/16 20:15 (Atrovent Neb) 0.5 mg Q6HR NEB NEB 10/13/16 04:00 10/13/16 08:32 (Atrovent Neb) 0.5 mg Q2HR NEB PRN NEB 10/13/16 00:45 (Lactinex) 1 tab TIDAC PO 10/13/16 08:00 (Brethine Inj) 1 mg UNSCH PRN SQ 10/13/16 07:30 (D50w (Vial) Inj) 25 ml UNSCH PRN IV PUSH 10/13/16 07:30 (NovoLIN R SUPPLEMENTAL SCALE) 1 Q6HR SQ 10/13/16 12:00 Norepinephrine Bitartrate 16 mg/ Dextrose 250 ml @ 1.87 mls/hr TITRATE PRN IV 10/13/16 08:00 Epinephrine HCl 8 mg/Dextrose 250 ml @ 5.62 mls/hr TITRATE PRN IV 10/13/16 09:00 10/13/16 09:07 (Amidate Inj) 20 mg ONCE ONCE IV PUSH 10/13/16 13:15 10/13/16 13:16 UNV (Versed Inj) 5 mg ONCE ONCE IV PUSH 10/13/16 13:15 10/13/16 13:16 UNV (Zemuron Inj) 100 mg BOLUS ONCE IV 10/13/16 13:15 10/13/16 13:16 UNV Micafungin Sodium 150 mg/Sodium Chloride 100 ml @ 100 mls/hr Q24H IV 10/13/16 14:15 UNV Daptomycin 1000 mg/Sodium Chloride 100 ml @ 200 mls/hr Q24H IV 10/13/16 14:15 UNV Cefepime HCl 1000 mg/Sodium Chloride 100 ml @ 200 mls/hr Q24H IV 10/13/16 14:15 UNV Family History Patient denies any family history, no heart disease or cancer. Social History Patient denies any tobacco, alcohol or illicit drug use. Physical Exam Vital Signs Vital Signs Date Time Temp Pulse Resp B/P (MAP) Pulse Ox O2 Delivery O2 Flow Rate FiO2 10/13/16 11:35 91.0 10/13/16 10:00 70 10/13/16 09:07 66 137/64 10/13/16 08:00 56 10/13/16 08:00 91.0 54 18 78/40 (53) 96 10/13/16 07:20 95 21 10/13/16 06:00 Room Air 99 10/13/16 05:00 54 10/13/16 05:00 Nasal Cannula 2.00 100 10/13/16 05:00 91.1 54 12 89/49 (62) 100 10/13/16 05:00 91.1 10/13/16 04:45 99 Nasal Cannula 3.00 10/13/16 04:15 47 18 74/39 (51) 92 10/13/16 00:00 92.7 54 16 89/54 (66) 97 10/12/16 23:00 98.7 51 16 105/51 (69) 94 10/12/16 19:01 59 16 110/57 (74) 97 Room Air 10/12/16 18:16 59 18 97 Room Air 10/12/16 18:11 98.8 59 18 110/57 (74) 97 Physical Exam GENERAL:Morbidly obese dark skinned female, in no apparent distress. SKIN: Diffuse rash in all skin folds. All over her upper extremities and lower extremities diffuse rash. On Neck area there is a fungal appearing skin rash as well. HEAD: Atraumatic. Normocephalic. No temporal or scalp tenderness. EYES: Pupils equal round and reactive. No scleral icterus. No injection or drainage. ENT: Intubated. PICC line site with unclean appearing dressing. NECK: Large neck.Trachea midline. Supple, nontender, no meningeal signs. CARDIOVASCULAR: Distant HS. No murmur audible. RESPIRATORY: Clear to auscultation. Breath sounds equal bilaterally. No wheezes , rales, or rhonchi. GASTROINTESTINAL: Abdomen soft, non-tender, pannus with erythema and moisture, erythema noted. MUSCULOSKELETAL: Left LE with ulcer noted with packing with foul smelling discharge. 1.5 cm opening, deep approx 1.5 cm ? bone probed. Chronic venous stasis changes. NEUROLOGICAL: Sedated. Sacrum: 2 non stageable ulcers. Psych: could not be assessed. Laboratory Laboratory Tests Test 10/12/16 18:15 10/12/16 23:05 10/13/16 02:15 10/13/16 04:23 White Blood Count 8.1 Red Blood Count 2.37 Hemoglobin 7.5 Hematocrit 23.7 Mean Corpuscular Volume 99.9 Mean Corpuscular Hemoglobin 31.8 Mean Corpuscular Hemoglobin Concent 31.8 Red Cell Distribution Width 20.0 Platelet Count 240 Mean Platelet Volume 8.1 Neutrophils (%) (Auto) 82.9 Lymphocytes (%) (Auto) 8.2 Monocytes (%) (Auto) 6.4 Eosinophils (%) (Auto) 2.3 Basophils (%) (Auto) 0.2 Neutrophils # (Auto) 6.7 Lymphocytes # (Auto) 0.7 Monocytes # (Auto) 0.5 Eosinophils # (Auto) 0.2 Basophils # (Auto) 0.0 CBC Comment DIFF FINAL Differential Comment Blood Urea Nitrogen 88 90 90 Creatinine 7.53 7.55 7.70 Random Glucose 130 142 126 Total Protein 7.8 Albumin 2.4 Calcium Level 7.6 7.6 7.8 Alkaline Phosphatase 404 Aspartate Amino Transf (AST/SGOT) 14 Alanine Aminotransferase (ALT/SGPT) 19 Total Bilirubin 0.6 Sodium Level 138 140 140 Potassium Level 5.8 5.7 5.2 Chloride Level 111 112 114 Carbon Dioxide Level 15.8 15.0 14.0 Anion Gap 11 13 12 Estimat Glomerular Filtration Rate 6 6 6 Lactic Acid Level 0.6 Random Vancomycin Level 21.6 Blood Gas Puncture Site RT RADIAL Blood Gas Patient Temperature 98.6 Blood Gas HCO3 16 Blood Gas Base Excess -11.9 Blood Gas Oxygen Saturation 96 Arterial Blood pH 7.14 Arterial Blood Partial Pressure CO2 48 Arterial Blood Partial Pressure O2 139 Arterial Blood Oxygen Content 10.5 Arterial Blood Carboxyhemoglobin 1.8 Arterial Blood Methemoglobin 0.8 Blood Gas Hemoglobin 7.6 Oxygen Delivery Device NASAL CANNULA Blood Gas Liter Flow 3 Test 10/13/16 12:43 10/13/16 13:24 Blood Gas Puncture Site ART LINE Blood Gas Patient Temperature 98.6 Blood Gas HCO3 17 Blood Gas Base Excess -8.4 Blood Gas Oxygen Saturation 87 Arterial Blood pH 7.26 Arterial Blood Partial Pressure CO2 40 Arterial Blood Partial Pressure O2 66 Arterial Blood Oxygen Content 9.5 Arterial Blood Carboxyhemoglobin 2.0 Arterial Blood Methemoglobin 0.8 Blood Gas Hemoglobin 7.6 Blood Gas Inspired Oxygen 21 White Blood Count 8.9 Red Blood Count 2.49 Hemoglobin 7.6 Hematocrit 24.4 Mean Corpuscular Volume 98.0 Mean Corpuscular Hemoglobin 30.8 Mean Corpuscular Hemoglobin Concent 31.4 Red Cell Distribution Width 19.4 Platelet Count 285 Mean Platelet Volume 7.0 Neutrophils (%) (Auto) 86.2 Lymphocytes (%) (Auto) 7.2 Monocytes (%) (Auto) 5.3 Eosinophils (%) (Auto) 1.1 Basophils (%) (Auto) 0.2 Neutrophils # (Auto) 7.7 Lymphocytes # (Auto) 0.6 Monocytes # (Auto) 0.5 Eosinophils # (Auto) 0.1 Basophils # (Auto) 0.0 CBC Comment AUTO DIFF Lactic Acid Level 0.8 Date/Time Source Procedure Growth Status 10/12/16 18:30 Blood Peripheral Aerobic Blood Culture - Preliminary NO GROWTH IN 1 DAY Resulted 8/31/17 18:30 Blood Peripheral Anaerobic Blood Culture - Preliminary NO GROWTH IN 1 DAY Resulted Result Diagram: 10/12/16 1815 10/13/16 0215 Imaging Last Impressions Upper Extremity Ultrasound 10/13/16 0000 Signed Impressions: Service Date/Time: Thursday, October 13, 2016 09:17 - CONCLUSION: 1. No DVT. 2. Subcutaneous edema observed. Wilner Potter Jr., MD Lower Extremity Ultrasound 10/13/16 0000 Signed Impressions: Service Date/Time: Thursday, October 13, 2016 08:57 - CONCLUSION: 1. Study has some limitations as detailed above. No DVT observed. Wilner Potter Jr., MD Chest X-Ray 10/12/16 1809 Signed Impressions: Service Date/Time: September 18:24 - CONCLUSION: Suspected mild atelectasis or consolidation at the left base. The heart size is borderline enlarged. Ricco Fuentes MD Renal Ultrasound 10/12/16 0000 Signed Impressions: Service Date/Time: September 20:54 - CONCLUSION: Normal appearance of the kidneys. Ricco Fuentes MD Assessment and Plan Assessment and Plan Severe Sepsis present on admission Probable PICC line site infection, bacteremia, or fungemia. R/O endocarditis. Pneumonia: septic emboli or aspiration PNA. Acute renal failure: Vanco induced, prerenal Rash: Vanco IV, fungemia related diffuse rash Acute metabolic encephalopathy: sepsis, metabolic. DM2 with Nephropathy, legal blondness (? DM retinopathy). Acute Osteomyelitis, non healing ulcer likely infected as purulence noted. Diarrhea present on admission: check Cdiff as pt was on antibiotics. Recs: DC Zosyn IV DC Clindamycin IV Start Cefepime IV (on days of HD to be given after HD) Start Dapto IV(on days of HD to be given after HD) Start Micafungin IV (Re: ? Fungemia line related) Start Flagyl IV (once able to tolerate PO ok to change to PO flagyl) Wound culture (deep probe swab) CT C/A/P with contrast and CT Left foot r/o osteomyelitis (d/w and Nephro to ensure HD after contrast given today) Podiatry consult Check stool cdiff PCR. Check CRP. Check HIV panel. Check Hepatitis panel. Blood cultures x 2 Blood culture from PICC. Cath tip culture. d.w [facility] MD Wang.w [facility] about Vanco IV. Started recently for wound infection left foot. No ID involved this time. Patient reportedly was admitted at [facility] in past and has received multiple antibiotic rounds. Addendum at 2:56 pm. d/w : 2D ECHO with possible Tricuspid vegetation and severe TR. Agree with [place] as blood cultures may be negative as she is partially treated with Vanco IV. [place] medically necessary in my opinion. Lilibeth Johnson MD Oct 13, 2016 13:59
[2016-10-13 14:10] LABS: BICARBONATE 19.6 MEQ/L (21.0-32.0); POTASSIUM 4.3 MEQ/L (3.5-5.1)
[2016-10-13 15:00] LABS: BLOOD GAS BASE EXCESS -9.1 mmol/L (-2-2); BLOOD GAS CARBOXYHEMOGLOBIN 1.7 % (0-4); BLOOD GAS HCO3 16 mmol/L (22-26); BLOOD GAS O2 HGB SATURATION 97 % (90-100); BLOOD GAS OXYGEN CONTENT 10.5 Vol % (12.0-20.0); BLOOD GAS PCO2 34 mmHg (38-42); BLOOD GAS PO2 146 mmHg (61-120); BLOOD GAS TOTAL HGB 7.5 G/DL (12.0-16.0); CRITICAL VALUE YES; OXYGEN DEVICE VENTILATOR; TEMP CORR TO 98.6
[2016-10-13 15:01] LABS: DRAW SITE ART LINE; FIO2 50 %; STAT NO; ULNAR PULSE PRESENT
[2016-10-13 15:06] LABS: BANDS 8 % (0-6); CORRECTED NUCLEATED RBC 2 /100 WBC (0-0); METAMYELOCYTES 2 % (0-1); NEUTROPHIL # MANUAL DIFF 7.7 TH/MM3 (1.8-7.7); PLATELET ESTIMATE SMEAR NORMAL (NORMAL); PLATELET MORPHOLOGY NORMAL (NORMAL); POLYS (SEG NEUTROPHILS) 76 % (16-70); SCAN/DIFF FINAL DIFF MANUAL; WBC DIFF SAMPLE 100
--- NOTE | 2016-10-13 15:30 | ECHRPT ---
Indication: Heart failure CONCLUSIONS Normal left ventricular size. Wall thickness is measured at the upper limits of normal. The right ventricular wall thickness is mildly increased. The right ventriclar size is upper limits of normal. The right ventricular systoilc function is moderately decreased. The right atrial size is [id number] dilated. There is severe tricuspid regurgitation. There is estimated severe pulmonary hypertension present ( 76 mmHg). Mild pulmonary valve regurgitation. BP: 89 / 49 HR: 54 Rhythm: Sinus MEASUREMENTS (Male / Female) Normal Values Technical Quality:Technically difficult study 2D ECHO LV Diastolic Diameter PLAX 4.2 cm 4.2 - 5.9 / 3.9 - 5.3 cm LV Systolic Diameter PLAX 3.1 cm IVS Diastolic Thickness 1.2 cm 0.6 - 1.0 / 0.6 - 0.9 cm LVPW Diastolic Thickness 1.0 cm 0.6 - 1.0 / 0.6 - 0.9 cm LV Relative Wall Thickness 0.5 RV Internal Dim ED PLAX 2.4 cm LA Systolic Diameter LX 4.1 cm 3.0 - 4.0 / 2.7 - 3.8 cm M-MODE Aortic Root Diameter MM 2.8 cm AV Cusp Separation MM 1.8 cm DOPPLER AV Peak Velocity 224.0 cm/s AV Peak Gradient 20.1 mmHg LVOT Peak Velocity 114.0 cm/s LVOT Peak Gradient 5.2 mmHg Mitral E Point Velocity 115.0 cm/s Mitral A Point Velocity 106.0 cm/s Mitral E to A Ratio 1.1 TR Peak Velocity 421.0 cm/s TR Peak Gradient 70.9 mmHg FINDINGS LEFT VENTRICLE Normal left ventricular size. Wall thickness is measured at the upper limits of normal. The left ventricular systolic function is normal with an estimated ejection fraction in the range of 60-65%. RIGHT VENTRICLE The right ventricular wall thickness is mildly increased. The right ventriclar size is upper limits of normal. The right ventricular systoilc function is moderately decreased. LEFT ATRIUM The left atrial size is normal. RIGHT ATRIUM The right atrial size is [id number] dilated. ATRIAL SEPTUM Normal atrial septal thickness without atrial level shunting by limited color doppler interrogation. AORTA The aortic root and proximal ascending aorta are normal in size on limited imaging. MITRAL VALVE Structurally normal mitral valve. No mitral valve stenosis or regurgitation. AORTIC VALVE Trileaflet aortic valve. No aortic valve stenosis or regurgitation. TRICUSPID VALVE There is severe tricuspid regurgitation. There is estimated severe pulmonary hypertension present ( 76 mmHg). PULMONARY VALVE Mild pulmonary valve regurgitation. VESSELS The inferior vena cava is normal in size. PERICARDIUM No pericardial effusion. Shannon Sanchez MD, FACC (Electronically Signed) Final Date:13 October 2016 15:29
[2016-10-13] MEDS ORDERED: PROPOFOL 1000 MG/100 ML INJ 100 ML ONE ×2 (15:31→18:39)
[2016-10-13] MEDS ORDERED: SODIUM CHLOR 0.9% 1000 ML INJ 1,000 ML OTHER PRN ×2 (15:54)
--- NOTE | 2016-10-13 15:54 | PD.CONS ---
[facility] Service Nephrology Consult Requested By Reason for Consult Acute Renal Failure Primary Care Physician Ty Campbell MD History of Present Illness This is a 51 y/o female who was sent from long-term for altered mental status. She has a hx of DM II, CVA, legally blind,neuropathy, COPD, HTN, anemia and sleep apnea. She had a PICC line and was being treated with IV Zosyn and vancomycin for several months for suspected (not confirmed osteomyelitis). On arrival she is in renal failure with creatinine of 7.5 that has not improved. She was hyperkalemic at 5.8 that is 4.3 today . She has not made any urine since arrival. She is in fluid overload was intubated for respiratory depression. She is on epinephrine gtt, is hypothermic at 91 degrees. Her PICC line has been removed. We were consulted for renal management. (Lizy Pineda) Review of Systems ROS Limitations: Intubated, Unresponsive (Lizy Pineda) Past Family Social History Allergies: Coded Allergies: morphine (Unverified Allergy, Unknown, 09/26/16) vancomycin (Verified Adverse Reaction, Unknown, Rash, 10/12/16) Past Medical History DM Legally blind COPD HTN anemia sleep apnea CVA neuropathy Afib Past Surgical History no surgical history Reported Medications unable to obtain Active Ordered Medications Current Medications Medications (Trade) Dose Ordered Sig/Adair Route Start Time Stop Time Status Last Admin (NS Flush) 2 ml UNSCH PRN IV FLUSH 10/12/16 20:15 (NS Flush) 2 ml BID IV FLUSH 10/12/16 21:00 (Heparin Inj) 5,000 units Q8H SQ 10/13/16 06:00 (Narcan Inj) 0.4 mg UNSCH PRN IV 10/12/16 20:15 (Glucagon Inj) 1 mg UNSCH PRN OTHER 10/12/16 20:15 (Atrovent Neb) 0.5 mg Q6HR NEB NEB 10/13/16 04:00 10/13/16 08:32 (Atrovent Neb) 0.5 mg Q2HR NEB PRN NEB 10/13/16 00:45 (Lactinex) 1 tab TIDAC PO 10/13/16 08:00 (Brethine Inj) 1 mg UNSCH PRN SQ 10/13/16 07:30 (D50w (Vial) Inj) 25 ml UNSCH PRN IV PUSH 10/13/16 07:30 (NovoLIN R SUPPLEMENTAL SCALE) 1 Q6HR SQ 10/13/16 12:00 Norepinephrine Bitartrate 16 mg/ Dextrose 250 ml @ 1.87 mls/hr TITRATE PRN IV 10/13/16 08:00 Epinephrine HCl 8 mg/Dextrose 250 ml @ 5.62 mls/hr TITRATE PRN IV 10/13/16 09:00 10/13/16 09:07 Micafungin Sodium 150 mg/Sodium Chloride 100 ml @ 100 mls/hr Q24H IV 10/13/16 17:00 Daptomycin 1000 mg/Sodium Chloride 100 ml @ 200 mls/hr Q48H IV 10/13/16 16:00 Cefepime HCl 1000 mg/Sodium Chloride 100 ml @ 200 mls/hr Q24H IV 10/13/16 15:00 Metronidazole 100 ml @ 100 mls/hr Q8H IV 10/13/16 14:45 UNV Family History unable to obtain Social History has been residing at nursing facility lately other information unknown (Lizy Pineda) Physical Exam Vital Signs Vital Signs Date Time Temp Pulse Resp B/P (MAP) Pulse Ox O2 Delivery O2 Flow Rate FiO2 10/13/16 13:35 99 50 10/13/16 11:35 91.0 10/13/16 10:00 70 10/13/16 09:07 66 137/64 10/13/16 08:00 56 10/13/16 08:00 91.0 54 18 78/40 (53) 96 10/13/16 07:20 95 21 10/13/16 06:00 Room Air 99 10/13/16 05:00 54 10/13/16 05:00 Nasal Cannula 2.00 100 10/13/16 05:00 91.1 54 12 89/49 (62) 100 10/13/16 05:00 91.1 10/13/16 04:45 99 Nasal Cannula 3.00 10/13/16 04:15 47 18 74/39 (51) 92 10/13/16 00:00 92.7 54 16 89/54 (66) 97 10/12/16 23:00 98.7 51 16 105/51 (69) 94 10/12/16 19:01 59 16 110/57 (74) 97 Room Air 10/12/16 18:16 59 18 97 Room Air 10/12/16 18:11 98.8 59 18 110/57 (74) 97 Physical Exam Obese AAF, intubated, unresponsive Lungs with rales scattered S1/S2, regular rhythm, rate in 50s. abdomen obese, soft, normal bowel sounds Ext: 2-3+ edema; wound on left foot TLC left SC VC left IJ Laboratory Laboratory Tests Test 10/12/16 18:15 10/12/16 23:05 10/13/16 02:15 10/13/16 04:23 White Blood Count 8.1 Red Blood Count 2.37 Hemoglobin 7.5 Hematocrit 23.7 Mean Corpuscular Volume 99.9 Mean Corpuscular Hemoglobin 31.8 Mean Corpuscular Hemoglobin Concent 31.8 Red Cell Distribution Width 20.0 Platelet Count 240 Mean Platelet Volume 8.1 Neutrophils (%) (Auto) 82.9 Lymphocytes (%) (Auto) 8.2 Monocytes (%) (Auto) 6.4 Eosinophils (%) (Auto) 2.3 Basophils (%) (Auto) 0.2 Neutrophils # (Auto) 6.7 Lymphocytes # (Auto) 0.7 Monocytes # (Auto) 0.5 Eosinophils # (Auto) 0.2 Basophils # (Auto) 0.0 CBC Comment DIFF FINAL Differential Comment Blood Urea Nitrogen 88 90 90 Creatinine 7.53 7.55 7.70 Random Glucose 130 142 126 Total Protein 7.8 Albumin 2.4 Calcium Level 7.6 7.6 7.8 Alkaline Phosphatase 404 Aspartate Amino Transf (AST/SGOT) 14 Alanine Aminotransferase (ALT/SGPT) 19 Total Bilirubin 0.6 Sodium Level 138 140 140 Potassium Level 5.8 5.7 5.2 Chloride Level 111 112 114 Carbon Dioxide Level 15.8 15.0 14.0 Anion Gap 11 13 12 Estimat Glomerular Filtration Rate 6 6 6 Lactic Acid Level 0.6 Random Vancomycin Level 21.6 Blood Gas Puncture Site RT RADIAL Blood Gas Patient Temperature 98.6 Blood Gas HCO3 16 Blood Gas Base Excess -11.9 Blood Gas Oxygen Saturation 96 Arterial Blood pH 7.14 Arterial Blood Partial Pressure CO2 48 Arterial Blood Partial Pressure O2 139 Arterial Blood Oxygen Content 10.5 Arterial Blood Carboxyhemoglobin 1.8 Arterial Blood Methemoglobin 0.8 Blood Gas Hemoglobin 7.6 Oxygen Delivery Device NASAL CANNULA Blood Gas Liter Flow 3 Test 10/13/16 12:43 10/13/16 13:24 10/13/16 14:49 Blood Gas Puncture Site ART LINE ART LINE Blood Gas Patient Temperature 98.6 98.6 Blood Gas HCO3 17 16 Blood Gas Base Excess -8.4 -9.1 Blood Gas Oxygen Saturation 87 97 Arterial Blood pH 7.26 7.30 Arterial Blood Partial Pressure CO2 40 34 Arterial Blood Partial Pressure O2 66 146 Arterial Blood Oxygen Content 9.5 10.5 Arterial Blood Carboxyhemoglobin 2.0 1.7 Arterial Blood Methemoglobin 0.8 1.0 Blood Gas Hemoglobin 7.6 7.5 Blood Gas Inspired Oxygen 21 50 White Blood Count 8.9 Red Blood Count 2.49 Hemoglobin 7.6 Hematocrit 24.4 Mean Corpuscular Volume 98.0 Mean Corpuscular Hemoglobin 30.8 Mean Corpuscular Hemoglobin Concent 31.4 Red Cell Distribution Width 19.4 Platelet Count 285 Mean Platelet Volume 7.0 Neutrophils (%) (Auto) 86.2 Lymphocytes (%) (Auto) 7.2 Monocytes (%) (Auto) 5.3 Eosinophils (%) (Auto) 1.1 Basophils (%) (Auto) 0.2 Neutrophils # (Auto) 7.7 Lymphocytes # (Auto) 0.6 Monocytes # (Auto) 0.5 Eosinophils # (Auto) 0.1 Basophils # (Auto) 0.0 CBC Comment AUTO DIFF Differential Total Cells Counted 100 Neutrophils % (Manual) 76 Band Neutrophils % 8 Lymphocytes % 9 Monocytes % 5 Neutrophils # (Manual) 7.7 Metamyelocytes 2 Nucleated Red Blood Cells 2 Differential Comment FINAL DIFF MANUAL Platelet Estimate NORMAL Platelet Morphology Comment NORMAL Blood Urea Nitrogen 86 Creatinine 7.49 Random Glucose 121 Calcium Level 7.7 Sodium Level 144 Potassium Level 4.3 Chloride Level 111 Carbon Dioxide Level 19.6 Anion Gap 13 Estimat Glomerular Filtration Rate 6 Lactic Acid Level 0.8 B-Hydroxybutyrate 1.10 Oxygen Delivery Device VENTILATOR Blood Gas Ventilator Setting Date/Time Source Procedure Growth Status 10/12/16 18:30 Blood Peripheral Aerobic Blood Culture - Preliminary NO GROWTH IN 1 DAY Resulted 10/12/16 18:30 Blood Peripheral Anaerobic Blood Culture - Preliminary NO GROWTH IN 1 DAY Resulted (Lizy Pineda) Result Diagram: 10/13/16 1324 10/13/16 1324 Imaging Last Impressions Upper Extremity Ultrasound 10/13/16 0000 Signed Impressions: Service Date/Time: Thursday, October 13, 2016 09:17 - CONCLUSION: 1. No DVT. 2. Subcutaneous edema observed. Wilner Potter Jr., MD Lower Extremity Ultrasound 10/13/16 0000 Signed Impressions: Service Date/Time: Thursday, October 13, 2016 08:57 - CONCLUSION: 1. Study has some limitations as detailed above. No DVT observed. Wilner Potter Jr., MD Chest X-Ray 10/12/16 1809 Signed Impressions: Service Date/Time: September 18:24 - CONCLUSION: Suspected mild atelectasis or consolidation at the left base. The heart size is borderline enlarged. Ricco Fuentes MD Renal Ultrasound 10/12/16 0000 Signed Impressions: Service Date/Time: September 20:54 - CONCLUSION: Normal appearance of the kidneys. Ricco Fuentes MD (Lizy Pineda) Assessment and Plan Problem List: (1) Acute renal failure ICD Codes: N17.9 - Acute kidney failure, unspecified Status: Acute Plan: She apparently has a baseline creatinine of 1 FREDI from ATN, secondary to dehydration, also the possibility of vancomycin induced nephrotoxicity; may also be due to sepsis at this time she has become anuric , will need dialysis urgently a vascath has been placed continue pressor support to maintain MAP > 65mmHg she is not on IVF, will need fluid removal with HD obtain UA for analysis avoid nephrotoxic medications, renally dose when appropriate ; CT was changed to WITHOUT contrast as to not induce further renal injury repeat labs in AM (2) Sepsis ICD Codes: A41.9 - Sepsis, unspecified organism Plan: hypothermic, hypotensive PICC was removed, catheter tip sent to micro for analysis imaging ordered to evaluate for osteomyelitis of left foot she was pancultured echo does not reveal endocarditis, EF 60-65% (3) Hyperkalemia ICD Codes: E87.5 - Hyperkalemia Status: Acute Plan: treated medically yesterday to be dialyzed today as above (4) Metabolic acidosis ICD Codes: E87.2 - Acidosis Status: Acute Plan: due to renal failure should correct with dialysis (Lizy Pineda) Assessment and Plan patient was seen and examined. History reviewed. Discussed with Dr. Johnson. FREDI could be due to allergic interstitial nephritis due to antibiotics including Vancomycin. Anuric. Dialysis initiated. She is in respiratory failure. ATN is a possibility as well. Poor prognosis. (Francisco Javier Quiros MD) Problem Qualifiers (1) Acute renal failure: Qualified Codes: N17.9 - Acute kidney failure, unspecified Lizy Pineda [facility] Oct 13, 2016 15:54 Francisco Javier Quiros MD Oct 13, 2016 17:03
--- NOTE | 2016-10-13 15:58 | RADRPT ---
EXAM DATE/TIME: 10/13/2016 15:05 [facility] COMPARISON: CHEST SINGLE AP, October 12, 2016, 18:24. INDICATIONS : Evaluate for central line, vas cath, and ET tube placement. MEDICAL HISTORY : Diabetes mellitus type 2. Hypertension. Stroke. Hyperkalemia SURGICAL HISTORY : Right eye surgery ENCOUNTER: Subsequent ACUITY: 1 day PAIN SCORE: Non-responsive. LOCATION: chest FINDINGS: ET tube nasogastric tube and dialysis catheter are in good position. Increasing interstitial changes are present in both lungs without pneumothorax. There is mild elevation of the right hemidiaphragm. CONCLUSION: Support apparatus in good position without pneumothorax. Roman Montiel MD FACR on October 13, 2016 at 15:56 Board Certified Radiologist. This report was verified electronically.
[2016-10-13 16:00] LABS: BACTERIA, URINE MANY /hpf; BLOOD, URINE MOD (NEG); COMMENT (UR) CATH-CULTURE IND; CULTURE IF INDICATED CATH CULTURE IND; GLUCOSE,URINE NEG (NEG); KETONE, URINE NEG (NEG); NITRITE,URINE NEG (NEG); TRANSITIONAL EPI CELLS, URINE 3 /hpf; URINE COLOR RED (YELLW/STRAW)
[2016-10-13] MEDS ORDERED: SODIUM CHLORIDE 0.9% FLUSH 10 ML FLUSH IV FLUSH PRN (16:00)
[2016-10-13] MEDS ORDERED: NITROGLYCERIN 0.4 MG SL 25 TABS/BTL SL PRN (16:00)
[2016-10-13] MEDS ORDERED: ALBUMIN HUMAN 25% 25 GM/100 ML BAGP IV PRN (16:00)
[2016-10-13] MEDS ORDERED: ONDANSETRON HCL 4 MG/2 ML VIAL IV PRN (16:00)
[2016-10-13] MEDS ORDERED: HEPARIN SODIUM - IV 10,000 UNITS/10 ML VIAL IVF PRN (16:00)
[2016-10-13] MEDS ORDERED: ACETAMINOPHEN 325 MG TAB PO PRN (16:00)
[2016-10-13] MEDS ORDERED: MANNITOL 12.5 GM/50 ML VIAL IV PRN (16:00)
[2016-10-13] MEDS: DAPTOmycin INJ 1,000 MG in SODIUM CHLORIDE 0.9% INJ 100 ML IV SCH (17:00)
--- NOTE | 2016-10-13 17:58 | PD.PROCEDR ---
Procedure Note Procedure Procedure: Transesophageal Echocardiography Diagnosis: Septic shock Indications: Septic shock with high concern for endocarditis Consent: Consent is deemed emergent and medically necessary Anesthesia: Propofol IV Description of the Procedure: The patient was sedated and mechanically ventilated. The patient was placed on 100% FIO2. The echo probe was inserted easily and without resistance. At the conclusion of the procedure, the echo probe was removed. Please see detailed echocardiogram report for formal findings. Preliminary Findings (not confirmed): 1) Normal left ventricular size and function 2) Severe tricuspid regurgitation 3) possible small mobile vegetation on the tricuspid valve 4) Severe pulmonary hypertension 5) No pericardial effusion The patient tolerated the procedure well with no hemodynamic instability or hypoxia. There were no immediate complications noted. At the conclusion of the procedure, the patient was placed back on their pre-procedure ventilatory settings. There was minimal EBL. I personally performed the procedure. Jordon Haines MD Oct 13, 2016 17:58
--- NOTE | 2016-10-13 18:13 | PD.PROCEDR ---
Procedure Note Procedure Central Line Procedure Note Left subclavian triple-lumen catheter Diagnosis: Septic shock Indications: And need for vasopressors Consent: Emergent Anesthesia: Versed IV, propofol IV Description of the Procedure: The patient was placed in the supine, mild- Trendelenburg position. The area was prepped and draped sterilely. A 19g needle was inserted under negative pressure aspiration and dark venous blood was obtained. A guidewire was inserted easily without resistance. A small incision was made using a #11 blade. Using a modified Seldinger technique, the dilator and 7 Niuean, 20 cm catheter were advanced over the guidewire without resistance. All ports were aspirated and flushed, and had brisk blood return. The line was secured at 18 cm at the skin using 2-0 silk interrupted sutures. A Biopatch and Transparent sterile dressing were applied. There were no immediate complications noted. There was minimal EBL. The patient tolerated the procedure well. Ultrasound guidance was not used for this procedure A Chest x-ray has been ordered. I personally performed the procedure. Jordon Haines MD Oct 13, 2016 18:13
--- NOTE | 2016-10-13 18:14 | PD.PROCEDR ---
Procedure Note Procedure Central Line Procedure Note Left IJ 14 Mauritanian, 24 cm dialysis catheter Diagnosis: Acute kidney injury Indications: Acute kidney injury requiring emergent renal replacement therapy Consent: Emergent Anesthesia: Versed IV Description of the Procedure: The patient was placed in the supine, mild- Trendelenburg position. The area was prepped and draped sterilely. A 19g needle was inserted under negative pressure aspiration and dark venous blood was obtained. A guidewire was inserted easily without resistance. A small incision was made using a #11 blade. Using a modified Seldinger technique, the dilator and 14 Mauritanian, 24 cm catheter were advanced over the guidewire without resistance. All ports were aspirated and flushed, and had brisk blood return. The line was secured at 24 cm at the skin using 2-0 silk interrupted sutures. A Biopatch and Transparent sterile dressing were applied. There were no immediate complications noted. There was minimal EBL. The patient tolerated the procedure well. Ultrasound Guidance: Ultrasound guidance was used to identify the left internal jugular vein. The vascular anatomy of the left anterior neck was normal. The vessel was cannulated under direct, real-time ultrasound visualization. After placement of the guidewire, confirmation of the guidewire in the lumen of the vessel was made using ultrasound visualization, before dilation of the tract. A Chest x-ray has been ordered. I personally performed the procedure. Jordon Haines MD Oct 13, 2016 18:14
--- NOTE | 2016-10-13 18:16 | PD.PROCEDR ---
Procedure Note Procedure Endotracheal Intubation Diagnosis: Acute hypoxic and hypercarbic respiratory failure Indications: Acute hypoxic and hypercarbic respiratory failure Consent: Emergent Anesthesia: Versed 5 mg IV, Rocuronium 100 mg IV Description of the Procedure: The patient was positioned in the sniffing position. Pre-oxygenation was performed using a [id number]. Anesthesia was induced via rapid sequence. A Melchor #2 was used for laryngoscopy and a Grade I view was obtained. A 8.0 cuffed endotracheal tube was inserted atraumatically through the vocal cords. Confirmation of correct endotracheal tube placement was made by equal and bilateral breath sounds and colorimetric CO2 detection. The endotracheal tube was secured at 23 cm at the teeth. There were no immediate complications noted. The patient remained hemodynamically stable throughout the procedure. A chest x-ray has been ordered. I personally performed the procedure. Jordon Haines MD Oct 13, 2016 18:16
[2016-10-13] MEDS: CEFEPIME INJ 1,000 MG in SODIUM CHLORIDE 0.9% INJ 100 ML IV SCH (18:24)
[2016-10-13] MEDS: MICAFUNGIN INJ 150 MG in SODIUM CHLORIDE 0.9% INJ 100 ML IV SCH (18:24)
--- NOTE | 2016-10-13 19:10 | ECHRPT ---
Indication: endocarditis CONCLUSIONS The left ventricular systolic function is normal with an estimated ejection fraction in the range of 60-65%. The right ventricular systoilc function is moderately decreased. There is severe tricuspid regurgitation. There is estimated iqthpltj-kd-oauept pulmonary hypertension present (range 60-70 mmHg). Appears to be a prominent papillary muscle in the short axis view, does not appear to be a vegetatio n as it has no extra-cardiac motion (also noted in the long axis). BP: / HR: Rhythm: Sinus Technical Quality:Good Medications Complications None Proc. Components FINDINGS LEFT VENTRICLE Normal left ventricular size. The left ventricular systolic function is normal with an estimated ejection fraction in the range of 60-65%. No regional wall motion abnormalities are present. RIGHT VENTRICLE The right ventriclar size is upper limits of normal. The right ventricular systoilc function is moderately decreased. The right ventricular wall thickness is mildly increased. LEFT ATRIUM The left atrial size is normal. RIGHT ATRIUM The right atrial size is qpoi-rl-cafvepwduy dilated. ATRIAL APPENDAGES Normal left atrial appendage size with no evidence of thrombus formation. ATRIAL SEPTUM Normal atrial septal thickness without atrial level shunting by limited color doppler interrogation. AORTA Descending aorta appears normal size MITRAL VALVE Structurally normal mitral valve. No mitral valve regurgitation. No mitral valve stenosis. AORTIC VALVE Trileaflet aortic valve. No aortic valve regurgitation. No aortic valve stenosis. TRICUSPID VALVE Structurally normal tricuspid valve. There is severe tricuspid regurgitation. There is estimated qoshtxmo-io-utepqt pulmonary hypertension present (range 60-70 mmHg). Appears to be a prominent papillary muscle in the short axis view, does not appear to be a vegetatio n as it has no extra-cardiac motion (also noted in the long axis) VESSELS Trivial pulmonary valve regurgitation. PERICADIUM No pericardial effusion. Petr Esparza DO (Electronically Signed) Final Date:13 October 2016 19:08
[2016-10-13] MEDS: PROPOFOL 1000 MG/100 ML IV PRN (19:57)
[2016-10-13] MEDS: SODIUM CHLORIDE 0.9% FLUSH 10 ML FLUSH IV FLUSH SCH (20:00)
--- NOTE | 2016-10-13 20:48 | MB ---
cc: JOSSELIN ARNETT DPM DATE OF CONSULTATION 10/13/16 REASON FOR CONSULTATION Left foot wound, likely osteomyelitis. HISTORY OF PRESENT ILLNESS This is a 51-year-old female who was sent from a shelter with altered mental status. She has significant comorbidities. Apparently, she was seen at [facility] for osteomyelitis and received a PICC line and IV antibiotics. Currently, I am seeing the patient bedside. She is intubated, sedated due to respiratory depression. I am seeing the patient in the presence of infectious disease as well as critical care team. History is limited and solely taken from the chart. PAST MEDICAL HISTORY 1. Diabetes, 2. Legally blind 3. Chronic obstructive pulmonary disease 4. Hypertension. 5. ____ 6. Sleep apnea 7. Cerebrovascular accident 8. Neuropathy, 9. Atrial fibrillation. PAST SURGICAL HISTORY Unsure MEDICATIONS Reported medications unsure. Inpatient medications reviewed. 1. Micafungin 2. Daptomycin 3. Cefepime. 4. Zosyn 5. Clindamycin. Please see complete med list in chart PHYSICAL EXAMINATION VITAL SIGNS: Temperature 97, pulse rate 71, blood pressure 144/63. She is satting 50% on vent. GENERAL: This is a sedated obese female who appears to be short stature. Bilateral lower extremities are examined. There is noted to be chronic edema type changes consistent with lymphedema. Right lower extremity there is no obvious signs of ulceration. Left lower extremity - there appears to be a full-thickness ulceration the likely probes to the fifth metatarsal and/or cuboid. There is noted to be mixed serous fibrotic as well as serosanguineous drainage coming from the wound. There is an indurated dorsum of the foot, however, upon palpating the foot, ankle and leg, there was no obvious signs of soft tissue emphysema or gas within the tissue. There is no malodor. The foot appears to be warm. Sensation unobtainable. The patient has a rather significant increased joint mobility at the level of the ankle and the talonavicular joint, possible suggestive of early Charcot versus ligamentous abnormality. Pulses are hard to palpate through the edema of the dorsum of the foot and the ankle, however, palpable. LABORATORY FINDINGS White blood cell 8.9, hemoglobin/hematocrit 7/24, platelet count is 285. Chem-7 - sodium is 144, potassium 4.3, chloride 111, CO2 19.6, BUN 86, creatinine 7.49, blood culture 831. There is a gram-negative uzma. Wound culture ordered and pending. IMAGING STUDIES Imaging findings - foot CT has been ordered. ASSESSMENT/PLAN Left foot ulcer likely osteomyelitis. This is likely at least part of the source. The patient may need debridement, however, wound stable at this point. She must improve before any kind of foot surgery. I will continue to follow along. NASEEM Gaytan/ /4:24 PM /8:31 PM BELINDA
[2016-10-13] MEDS ORDERED: MONTELUKAST SODIUM 10 MG TAB PO SCH (21:00)
[2016-10-13] MEDS ORDERED: AMITRIPTYLINE HCL 50 MG TAB PO SCH (21:00)
[2016-10-13] MEDS: HEPARIN SODIUM - SQ 10,000 UNITS/ML VIAL SQ SCH (22:36)
--- NOTE | 2016-10-13 23:02 | RADRPT ---
EXAM DATE/TIME: 10/13/2016 21:27 [facility] COMPARISON: No previous studies available for comparison. INDICATIONS : Evaluate for septic emboli. RADIATION DOSE: 13.59 CTDIvol (mGy) ; Combined studies - Thorax/Abdomen/Pelvis MEDICAL HISTORY : Renal failure, chronic. Cardiovascular disease Hypertension. diabetic SURGICAL HISTORY : None. ENCOUNTER: Initial ACUITY: 1 day PAIN SCALE: Non-responsive LOCATION: Bilateral chest TECHNIQUE: Volumetric scanning of the chest was performed. Using automated exposure control and adjustment of t he mA and/or kV according to patient size, radiation dose was kept as low as reasonably achievable to obtain optimal diagnostic quality images. DICOM format image data is available electronically for r eview and comparison. Follow-up recommendations for detected pulmonary nodules are based at a minimum on nodule size and pa tient risk factors according to Fleischner Society Guidelines. FINDINGS: There is patchy consolidation seen in the right upper lobe and the right lower lobe. There is some mi nimal patchy density seen at the left lower lobe. Significant adenopathy is not seen in the mediasti num on this noncontrast CT examination. There appears to be a minimal right pleural effusion. There is ascites seen around the liver. There is some minimal high density material seen dependently in the gallbladder representing either small stones or milk of calcium. There does appear to be pro minent edema seen at the right breast, right chest and right upper abdomen. This is asymmetric suzanne red to the left side. There is a left internal jugular and left subclavian line in place. The bony structures are unremarkable. There are mildly prominent lymph nodes in the left axillary region. . CONCLUSION: 1. Patchy areas of consolidation seen bilaterally being worse on the right. These could represent ar eas of inflammatory/infectious disease. Focal round lesions to suggest septic emboli are not clearly identified. 2. Edema seen at the right superficial chest and abdomen regions. The cause of for this asymmetric e abilio is not known. 3. Mild ascites. Ricco Fuentes MD on October 13, 2016 at 22:51 Board Certified Radiologist. This report was verified electronically.
--- NOTE | 2016-10-13 23:09 | RADRPT ---
EXAM DATE/TIME: 10/13/2016 21:27 [facility] COMPARISON: No previous studies available for comparison. INDICATIONS : Abdominal pain. ORAL CONTRAST: No oral contrast ingested. RADIATION DOSE: 13.59 CTDIvol (mGy) ; Combined studies - Thorax/Abdomen/Pelvis MEDICAL HISTORY : Cardiovascular disease. Hypertension. Renal failure, chronic.diabetic SURGICAL HISTORY : None. ENCOUNTER: Initial ACUITY: 1 day PAIN SCALE: Non-responsive LOCATION: Abdomen TECHNIQUE: Volumetric scanning of the abdomen was performed. Using automated exposure control and adjustment of the mA and/or kV according to patient size, radiation dose was kept as low as reasonably achievable to obtain optimal diagnostic quality images. DICOM format image data is available electronically for review and comparison. FINDINGS: There is a mild amount of ascites seen around the liver. The liver, spleen, pancreas, adrenal glands and kidneys appear grossly normal. There is some high density material seen independently within th e gallbladder representing either small gallstones or milk of calcium. The visualized bowel in the a bdomen is unremarkable. There is edema seen in the superficial soft tissues at the right abdomen. T here is a lesser degree of edema seen superficially on the left side. The aorta and IVC are grossly normal in size. There are some small retroperitoneal lymph nodes seen. These are nonspecific. Ther e is degenerative change in the lumbar spine. There are areas of increased density seen at the lung bases bilateral being worse on the right. CONCLUSION: 1. Mild ascites seen around the liver. 2. Superficial edema seen bilaterally in the subcutaneous tissues. This is asymmetric and being much more prominent on the right. 3. Small area of increased density seen independently in the gallbladder representing either small ga llstones or milk of calcium. Ricco Fuentes MD on October 13, 2016 at 22:54 Board Certified Radiologist. This report was verified electronically.
--- NOTE | 2016-10-13 23:13 | RADRPT ---
EXAM DATE/TIME: 10/13/2016 21:35 [facility] COMPARISON: No previous studies available for comparison. INDICATIONS : Non-healing ulcer left ankle. RADIATION DOSE: 7.29 CTDIvol (mGy) MEDICAL HISTORY : Cardiovascular disease. Hypertension. Renal failure, chronic. Diabetic SURGICAL HISTORY : Non-responsive. ENCOUNTER: Initial ACUITY: 1 day PAIN SCALE: Non-responsive LOCATION: Left ankle TECHNIQUE: Volumetric scanning of the ankle was performed. Using automated exposure control and adjustment of the mA and/or kV according to patient size, radiation dose was kept as low as reasonabl y achievable to obtain optimal diagnostic quality images. DICOM format image data is available elec tronically for review and comparison. FINDINGS: There is an ulcer in the lateral soft tissues of the foot at the level of the base of t he fifth metatarsal. There is chronic hypertrophic change seen at the base of the fifth metatarsal. There also appears to be some suspected more acute bony destruction at the lateral inferior base of the fifth metatarsal concerning for possible osteomyelitis. The remaining bony structures are intact . There is prominent soft-tissue swelling throughout the foot and lower leg. Superficial calcificat ions are seen throughout the lower leg. These could be related to underlying conditions such as renal failure and hyperparathyroidism. CONCLUSION: Ulcer at the region of the base of the fifth metatarsal. There appears to be chronic and acute changes in this region. The acute changes are worrisome for osteomyelitis at the base of t he fifth metatarsal. Ricco Fuentes MD on October 13, 2016 at 23:00 Board Certified Radiologist. This report was verified electronically.
[2016-10-14] VITALS (18 sets, daily range): BP systolic 122–159; BP diastolic 51–74; PULSE 70–81; RESP 13–28; TEMP 97.9–98.4; O2SAT 100
[2016-10-14] MEDS: metroNIDAZOLE 500 MG INJ 100 ML IV SCH ×4 (00:52→23:51)
--- NOTE | 2016-10-14 00:59 | EKG ---
Date Performed: 10/12/2016 Time Performed: 20:00:39 PTAGE: 51 years EKG: Sinus rhythm WITH SINUS ARRHYTHMIA WITH FIRST DEGREE AV BLOCK PROLONGED QT INTERVAL POOR R WAVE PROGRESSION ABNOR MAL ECG PREVIOUS TRACING : 10/12/2016 19.59 Compared to the previous tracing, first degree AV block and prolonged QT internal are new DOCTOR: Petr Esparza Interpretating Date/Time 10/14/2016 00:58:04
[2016-10-14] MEDS: RESP: IPRATROPIUM 0.5 MG/2.5 ML NEB NEB SCH ×4 (04:17→20:05)
[2016-10-14] MEDS: PROPOFOL 1000 MG/100 ML IV PRN ×3 (04:36→18:27)
[2016-10-14 05:12] LABS: HEMATOCRIT 23.6 % (35.0-46.0); MEAN CELL VOLUME 95.6 FL (80.0-100.0); MEAN CORPUSCULAR HEMOGLOBIN 31.1 PG (27.0-34.0); MEAN CORPUSCULAR HGB CONC 32.5 % (32.0-36.0); PLATELET COUNT 309 TH/MM3 (150-450); RED BLOOD COUNT 2.47 MIL/MM3 (4.00-5.30); RED CELL DISTRIBUTION WIDTH 19.2 % (11.6-17.2); REVIEW FLAG FINAL; WHITE BLOOD COUNT 10.4 TH/MM3 (4.0-11.0)
[2016-10-14 05:47] LABS: BICARBONATE 21.2 MEQ/L (21.0-32.0)
[2016-10-14] MEDS: INSULIN NovoLIN REGULAR SUPPLEMENTAL SCALE SQ SCH ×4 (06:00→18:00)
[2016-10-14] MEDS: HEPARIN SODIUM - SQ 10,000 UNITS/ML VIAL SQ SCH ×3 (06:20→23:51)
[2016-10-14] MEDS: LACTOBACILLUS ACIDOPHILUS TAB PO SCH ×3 (08:00→15:46)
[2016-10-14] MEDS: HEPARIN SODIUM - IV 10,000 UNITS/10 ML VIAL PRN (08:18)
[2016-10-14] MEDS: GENTAMICIN SULFATE (DIALYSIS USE ONLY) 20 MG/2 ML VIAL IV PRN (08:18)
--- NOTE | 2016-10-14 09:24 | HHI.CCPN ---
Subjective Remarks/Hospital Course Hospital Course: This is a 51yF from a SNF who was being treated for chronic LLE cellulitis with approximately 6 months of vancomycin through an indwelling right arm PICC line, who presents with worsening creatinine found at her SNF and altered mental status. On arrival to the ED, she had a Cr 7.7, has a chronic indwelling black catheter and has not had any urine per report in the last few days. Renal ultrasound was negative for hydronephrosis. She also has a excoriating rash over her trunk and arms. She was initially admitted to the floor, but rapid responsed for hypotension and altered mental status. On my evaluation in the ICU , she is very altered and a poor historian. She endorses needing to have a bowel movement, though she has a rectal tube in place with large amount of liquid stool. She is quite agitated and is preventing a full history and physical exam. On bedside critical care echocardiogram, she has a hyperdynamic LV, mildly dilated RV, and clinically significant tricuspid regurgitation with an estimated trans-tricuspid gradient of ~60 mmHg. There is no pericardial effusion. IVC is dilated at 2.5cm without any respiratory variation. Critical care medicine is consulted to evaluate and manage her hypotension and altered mental status. She is additionally severely acidotic with a pH of 7.1, base deficit 10, pco2 48: she is not compensating appropriately. The remainder of the history is found from chart review due to the patient's clinical condition. Subjective: 10/14: off vasopressors and inotropes, but remains encephalopathic, intubated. HD again today. [place] without overt endocarditis. blood cultures growing gram negative rods and CT leg with probable osteomyelitis. off pathway without much overall improvements. Objective Vital Signs Date Time Temp Pulse Resp B/P (MAP) Pulse Ox O2 Delivery O2 Flow Rate FiO2 10/14/16 07:36 100 40 10/14/16 06:00 72 10/14/16 04:00 98.3 28 145/66 (92) 10/13/16 21:00 Mechanical Ventilator 10/13/16 05:00 2.00 Intake and Output 10/14/16 10/14/16 10/15/16 08:00 16:00 00:00 Intake Total 200 ml 100 ml Output Total 75 ml Balance 125 ml 100 ml Result Diagram: 10/14/16 0450 10/14/16 0450 Other Results Laboratory Tests Test 10/13/16 12:43 10/13/16 14:49 Blood Gas Puncture Site ART LINE ART LINE Blood Gas Patient Temperature 98.6 98.6 Blood Gas HCO3 17 mmol/L (22-26) 16 mmol/L (22-26) Blood Gas Base Excess -8.4 mmol/L (-2-2) -9.1 mmol/L (-2-2) Blood Gas Oxygen Saturation 87 % (90-100) 97 % (90-100) Arterial Blood pH 7.26 (7.380-7.420) 7.30 (7.380-7.420) Arterial Blood Partial Pressure CO2 40 mmHg (38-42) 34 mmHg (38-42) Arterial Blood Partial Pressure O2 66 mmHg (61-120) 146 mmHg (61-120) Arterial Blood Oxygen Content 9.5 Vol % (12.0-20.0) 10.5 Vol % (12.0-20.0) Arterial Blood Carboxyhemoglobin 2.0 % (0-4) 1.7 % (0-4) Arterial Blood Methemoglobin 0.8 % (0-2) 1.0 % (0-2) Blood Gas Hemoglobin 7.6 G/DL (12.0-16.0) 7.5 G/DL (12.0-16.0) Blood Gas Inspired Oxygen 21 % 50 % Oxygen Delivery Device VENTILATOR Blood Gas Ventilator Setting Imaging Last Impressions Upper Extremity Ultrasound 10/13/16 0000 Signed Impressions: Service Date/Time: Thursday, October 13, 2016 09:17 - CONCLUSION: 1. No DVT. 2. Subcutaneous edema observed. Wilner Potter Jr., MD Lower Extremity Ultrasound 10/13/16 0000 Signed Impressions: Service Date/Time: Thursday, October 13, 2016 08:57 - CONCLUSION: 1. Study has some limitations as detailed above. No DVT observed. Wilner Potter Jr., MD Lower Extremity CT 10/13/16 0000 Signed Impressions: Service Date/Time: Thursday, October 13, 2016 21:35 - CONCLUSION: Ulcer at the region of the base of the fifth metatarsal. There appears to be chronic and acute changes in this region. The acute changes are worrisome for osteomyelitis at the base of the fifth metatarsal. Ricco Fuentes MD Chest X-Ray 10/13/16 0000 Signed Impressions: Service Date/Time: Thursday, October 13, 2016 15:05 - CONCLUSION: Support apparatus in good position without pneumothorax. Roman Montiel MD FACR Chest CT 10/13/16 0000 Signed Impressions: Service Date/Time: Thursday, October 13, 2016 21:27 - CONCLUSION: 1. Patchy areas of consolidation seen bilaterally being worse on the right. These could represent areas of inflammatory/infectious disease. Focal round lesions to suggest septic emboli are not clearly identified. 2. Edema seen at the right superficial chest and abdomen regions. The cause of for this asymmetric edema is not known. 3. Mild ascites. Ricco Fuentes MD Abdomen CT 10/13/16 0000 Signed Impressions: Service Date/Time: Thursday, October 13, 2016 21:27 - CONCLUSION: 1. Mild ascites seen around the liver. 2. Superficial edema seen bilaterally in the subcutaneous tissues. This is asymmetric and being much more prominent on the right. 3. Small area of increased density seen independently in the gallbladder representing either small gallstones or milk of calcium. Ricco Fuentes MD Renal Ultrasound 10/12/16 0000 Signed Impressions: Service Date/Time: September 20:54 - CONCLUSION: Normal appearance of the kidneys. Ricco Fuentes MD Objective Remarks gen: middle-aged, morbidly obese female, intubated and sedated. heent: perrl. mucous membranes moist. large tongue. neck: very large neck circumference. unable to assess jvd. trachea midline. left SC TLC and left IJ vascath sites look clean and dry, dressing intact. chest: intubated, prvc, 40% fio2. equal chest rise. distant breath sounds. bilateral coarse rales. cv: normal rate, regular rhythm. sinus by telemetry. abd: morbidly obese, soft, nontender, nondistended. extr: 3+ peripheral edema. LLE wrapped in kierra bandage. distal pulses 1+. skin: there is a desquamated rash which has areas of excoriation and scaling over the trunk and upper arms bilaterally. it does not [place]. no change in rash since yesterday. neuro: RASS -3 moves all extremities. withdraws to pain. does not follow commands. A/P Assessment and Plan Assessment: 51yF with LLE cellulitis presents now with severe oligoanuric acute kidney injury and associated metabolic encephalopathy, septic shock, gram negative uzma bacteremia, multi-organ system dysfunction. remains critically ill and off pathway. if we withdrew support, she would . She remains critically ill at this time with multiple organ systems which are currently life- threatening. Plan for today is repeat HD, follow up cultures, monitor neuro exam , continue abx. Plan by systems: Neurologic: Metabolic Encephalopathy secondary to Uremia and sepsis - frequent neuro checks - avoid long-acting sedating meds - propofol for goal RASS -2. Respiratory: Obesity Hypoventilation Syndrome COPD Sleep Apnea Acute hypoxic and hypercarbic respiratory failure Pulmonary Edema - intubated 10/13 for progressive hypoxia - wean fio2 for goal spo2 > 90% - vent bundle, hob at 30 degrees, nebs Cardiovascular: Septic Shock Severe Tricuspid Regurgitation - levophed for goal map > 65 mmHg - keep central line and art line. - cannot add additional volume given volume overload and HD. Renal: Acute oligo anuric kidney injury requiring renal replacement therapy - nephrology consult - HD again today with volume removal. -- Strict I/Os FEN/GI: Severe metabolic acidosis- resolved Hyperkalemia- resolved. Morbid Obesity - start TF, nepro. nutrition consult for goal. Heme/ID: Chronic anemia- likely secondary to chronic disease Septic Shock LLE osteomyelitis Gram negative uzma bacteremia - daily cbc - will not transfuse at this time given concern for possible volume overload from acute kidney injury - follow up sensitivities - ID consult - continue BSAbx. Endocrine: Diabetes -- SSI, medium scale, every 6 Prophylaxis: GI Prophylaxis pepcid DVT Prophylaxis -- SCDs Sub-cutaneous heparin Lines: - 10/13 left SC TLC - 10/13 left IJ vascath - 10/13 right radial arterial line - Black Dispo: remain in the ICU. remains critically ill. This patient remains critically ill with one or more organ systems which are or may become a threat to life. I have spent in excess of 55 minutes discontinuously in the care and management of this patient. This time is exclusive of procedures, and includes, but is not limited to, evaluation of the patient, review of the medical record, discussions with family, consultants, nursing staff, or respiratory therapy, and documentation in the medical record. Jordon Haines MD Oct 14, 2016 09:24
[2016-10-14] MEDS: SODIUM CHLORIDE 0.9% FLUSH 10 ML FLUSH IV FLUSH SCH ×2 (10:06→20:14)
--- NOTE | 2016-10-14 12:01 | HHI.NPPN ---
Subjective History of Present Illness 51 y/o female who was [facility] from jail for altered mental status. She has a hx of DM II, CVA, legally blind,neuropathy, COPD, HTN, anemia and sleep apnea. She had a PICC line and was being treated with IV Zosyn and vancomycin for several months for suspected osteomyelitis. Additional Remarks Patient remain intubated and sedated, seen after HD. Objective Data Data 10/14/16 10/15/16 19:00 07:00 Intake Total 200 ml Output Total 4000 ml Balance -3800 ml Intake IV Total 200 ml Hemodialysis 4000 ml Vital Signs Date Time Temp Pulse Resp B/P (MAP) Pulse Ox O2 Delivery O2 Flow Rate FiO2 10/14/16 10:00 75 10/14/16 08:00 40 10/14/16 08:00 98.1 73 16 149/70 (96) 100 10/14/16 08:00 73 10/14/16 07:36 100 40 10/14/16 07:00 100 Mechanical Ventilator 40 10/14/16 06:00 72 10/14/16 04:18 100 40 10/14/16 04:00 50 10/14/16 04:00 98.3 71 28 145/66 (92) 100 10/14/16 04:00 71 10/14/16 02:00 70 10/14/16 01:00 100 40 10/14/16 00:00 70 10/14/16 00:00 98.4 70 16 138/62 (87) 100 10/14/16 00:00 50 10/13/16 22:00 70 10/13/16 21:20 100 100 10/13/16 21:00 100 Mechanical Ventilator 40 10/13/16 20:55 100 40 10/13/16 20:00 72 10/13/16 20:00 98.0 72 17 138/64 (88) 100 Automatic Cuff 10/13/16 20:00 50 10/13/16 19:00 100 Mechanical Ventilator 50 10/13/16 18:00 69 10/13/16 16:08 100 50 10/13/16 16:00 50 10/13/16 16:00 70 10/13/16 16:00 98.0 70 18 143/62 (89) 100 10/13/16 15:00 50 10/13/16 14:00 71 10/13/16 13:35 99 50 10/13/16 12:00 97.0 71 12 144/63 (90) 98 10/13/16 12:00 66 -: 10/14/16 0450 10/14/16 0450 Microbiology 10/13/16 Aerobic Blood Culture - Preliminary, Resulted NO GROWTH IN 1 DAY 10/13/16 Anaerobic Blood Culture - Preliminary, Resulted NO GROWTH IN 1 DAY 10/13/16 Aerobic Blood Culture - Preliminary, Resulted NO GROWTH IN 1 DAY 10/13/16 Anaerobic Blood Culture - Preliminary, Resulted NO GROWTH IN 1 DAY 10/13/16 Aerobic Blood Culture - Preliminary, Resulted NO GROWTH IN 1 DAY 10/13/16 Anaerobic Blood Culture - Preliminary, Resulted NO GROWTH IN 1 DAY 10/13/16 Urine Culture, Received Pending 10/13/16 Gram Stain - Final, Resulted 10/13/16 Wound Culture, Resulted Pending 10/13/16 Fungal Culture, Received Pending 10/13/16 Wound Culture, Received Pending 10/13/16 Gram Stain - Final, Resulted 10/13/16 Wound Culture, Resulted Pending Physical Exam General Appearance Remarks Intubated and sedated. Eyes Eye Exam: Pupils Equal Neck Neck Exam: Neck Supple Pulmonary Resp Exam: Breath Sounds Equal, No Distress, Rhonchi, Decreased Bases Cardiology CV Exam: Regular, Normal Sinus Rhythm Gastrointestinal/Abdomen GI Exam: Soft, Non-Tender, Distended Extremeties Extremities Exam: Moderate Edema, Pitting Edema, Dependent Edema Neurologic Neuro Exam: Sedated Assessment/Plan Problem List: (1) Acute renal failure ICD Codes: N17.9 - Acute kidney failure, unspecified Status: Acute Plan: She apparently has a baseline creatinine of 1 FREDI from [facility], secondary to dehydration, also the possibility of vancomycin induced nephrotoxicity; may also be due to sepsis at this time she has become anuric , started on Hemodialysis. a vascath has been placed continue pressor support to maintain MAP > 65mmHg she is not on IVF, will need fluid removal with HD obtain UA for analysis avoid nephrotoxic medications, renally dose when appropriate. HD done again today and 4 liters removed. (2) Sepsis ICD Codes: A41.9 - Sepsis, unspecified organism Plan: hypothermic, hypotensive PICC was removed, catheter tip sent to micro for analysis imaging ordered to evaluate for osteomyelitis of left foot she was pancultured echo does not reveal endocarditis, EF 60-65% (3) Hyperkalemia ICD Codes: E87.5 - Hyperkalemia Status: Acute Plan: treated medically yesterday to be dialyzed today as above (4) Metabolic acidosis ICD Codes: E87.2 - Acidosis Status: Acute Plan: due to renal failure should correct with dialysis Problem Qualifiers (1) Acute renal failure: Qualified Codes: N17.9 - Acute kidney failure, unspecified Zi Kemp MD Oct 14, 2016 12:00
[2016-10-14] MEDS: CEFEPIME INJ 1,000 MG in SODIUM CHLORIDE 0.9% INJ 100 ML IV SCH (14:35)
--- NOTE | 2016-10-14 14:55 | HHI.IDPN ---
Subjective Subjective Remarks ID COVERAGE is a 51 y/o F from a SNF who was being treated for chronic LLE cellulitis, non healing ulcer. Patient's past medical history significant for diabetes type 2 uncontrolled, diabetic nephropathy with baseline creatinine of 1.2, legal blindness likely secondary to diabetic retinopathy. She has a history of recurrent cellulitis and a nonhealing ulcer and has been treated for osteomyelitis in the past. Patient has been treated with IV antibiotics using PICC line in the past. Per discussion with her PCP at [facility] patient has received IV antibiotics multiple times in the past. [facility] and decision was made to start IV antibiotics Vanco IV and possibly Zosyn IV using a PICC line. Unknown duration of PICC line at this point. Patient presents with worsening creatinine found at her SNF and altered mental status. On arrival to the ED, she had a Cr 7.7, has a chronic indwelling black catheter and has not had any urine per report in the last few days. Renal ultrasound was negative for hydronephrosis. She also has a excoriating rash over her trunk and arms. She was initially admitted to the floor, but rapid response called for hypotension and altered mental status. She was severely acidotic with a pH of 7.1, base deficit 10, pco2 48. At the time of my evaluation patient is currently in intensive care unit and has been intubated for altered mental status. Patient is also undergoing placement of PICC line. She has no urine output and has a Black bag in place. This Black was present on admission. She also had diarrhea on admission. Her risk factors for C. difficile her prior antibiotic usage and halfway placement. She is currently sedated and not on any vasopressors. Infectious disease is consulted for evaluation and management of severe sepsis with multiorgan dysfunction syndrome, possible line related infection, acute osteomyelitis. Notes reviewed D/W RN Temps ok BP ok, not on pressors Sedated on the vent Had HD yesterday and today UO very low BC with GNR Wound C/S PSAE UC with yeast [place] with possible small veg on TV Antibiotics Cubicin Flagyl Cefepime Micafungin Lines LIJ vascath LSC TLC Past Medical History DM Legally blind COPD HTN anemia sleep apnea CVA neuropathy Afib Allergies: Coded Allergies: morphine (Unverified Allergy, Unknown, 09/26/16) vancomycin (Verified Adverse Reaction, Unknown, Rash, 10/12/16) Objective . Vital Signs Date Time Temp Pulse Resp B/P (MAP) Pulse Ox O2 Delivery O2 Flow Rate FiO2 10/14/16 14:00 78 10/14/16 12:05 100 40 10/14/16 12:00 98.2 78 16 156/70 (98) 100 10/14/16 12:00 40 10/14/16 12:00 78 10/14/16 10:00 75 10/14/16 08:00 40 10/14/16 08:00 98.1 73 16 149/70 (96) 100 10/14/16 08:00 73 10/14/16 07:36 100 40 10/14/16 07:00 100 Mechanical Ventilator 40 10/14/16 06:00 72 10/14/16 04:18 100 40 10/14/16 04:00 50 10/14/16 04:00 98.3 71 28 145/66 (92) 100 10/14/16 04:00 71 10/14/16 02:00 70 10/14/16 01:00 100 40 10/14/16 00:00 70 10/14/16 00:00 98.4 70 16 138/62 (87) 100 10/14/16 00:00 50 10/13/16 22:00 70 10/13/16 21:20 100 100 10/13/16 21:00 100 Mechanical Ventilator 40 10/13/16 20:55 100 40 10/13/16 20:00 72 10/13/16 20:00 98.0 72 17 138/64 (88) 100 Automatic Cuff 10/13/16 20:00 50 10/13/16 19:00 100 Mechanical Ventilator 50 10/13/16 18:00 69 10/13/16 16:08 100 50 10/13/16 16:00 50 10/13/16 16:00 70 10/13/16 16:00 98.0 70 18 143/62 (89) 100 10/13/16 15:00 50 10/14/16 10/14/16 10/15/16 15:00 23:00 07:00 Intake Total 200 ml Output Total 4000 ml Balance -3800 ml Intake IV Total 200 ml Hemodialysis 4000 ml . Laboratory Tests Test 10/12/16 18:15 10/13/16 13:24 10/14/16 04:50 White Blood Count 8.1 TH/MM3 8.9 TH/MM3 10.4 TH/MM3 Red Blood Count 2.37 MIL/MM3 2.49 MIL/MM3 2.47 MIL/MM3 Hemoglobin 7.5 GM/DL 7.6 GM/DL 7.7 GM/DL Hematocrit 23.7 % 24.4 % 23.6 % Mean Corpuscular Volume 99.9 FL 98.0 FL 95.6 FL Mean Corpuscular Hemoglobin 31.8 PG 30.8 PG 31.1 PG Mean Corpuscular Hemoglobin Concent 31.8 % 31.4 % 32.5 % Red Cell Distribution Width 20.0 % 19.4 % 19.2 % Platelet Count 240 TH/MM3 285 TH/MM3 309 TH/MM3 Mean Platelet Volume 8.1 FL 7.0 FL 7.0 FL Neutrophils (%) (Auto) 82.9 % 86.2 % Lymphocytes (%) (Auto) 8.2 % 7.2 % Monocytes (%) (Auto) 6.4 % 5.3 % Eosinophils (%) (Auto) 2.3 % 1.1 % Basophils (%) (Auto) 0.2 % 0.2 % Neutrophils # (Auto) 6.7 TH/MM3 7.7 TH/MM3 Lymphocytes # (Auto) 0.7 TH/MM3 0.6 TH/MM3 Monocytes # (Auto) 0.5 TH/MM3 0.5 TH/MM3 Eosinophils # (Auto) 0.2 TH/MM3 0.1 TH/MM3 Basophils # (Auto) 0.0 TH/MM3 0.0 TH/MM3 CBC Comment DIFF FINAL AUTO DIFF Differential Comment FINAL DIFF MANUAL Differential Total Cells Counted 100 Neutrophils % (Manual) 76 % Band Neutrophils % 8 % Lymphocytes % 9 % Monocytes % 5 % Neutrophils # (Manual) 7.7 TH/MM3 Metamyelocytes 2 % Nucleated Red Blood Cells 2 /100 WBC Platelet Estimate NORMAL Platelet Morphology Comment NORMAL Laboratory Tests Test 10/12/16 18:15 10/12/16 23:05 10/13/16 02:15 10/13/16 13:24 Blood Urea Nitrogen 88 MG/DL 90 MG/DL 90 MG/DL 86 MG/DL Creatinine 7.53 MG/DL 7.55 MG/DL 7.70 MG/DL 7.49 MG/DL Random Glucose 130 MG/DL 142 MG/DL 126 MG/DL 121 MG/DL Total Protein 7.8 GM/DL Albumin 2.4 GM/DL Calcium Level 7.6 MG/DL 7.6 MG/DL 7.8 MG/DL 7.7 MG/DL Alkaline Phosphatase 404 U/L Aspartate Amino Transf (AST/SGOT) 14 U/L Alanine Aminotransferase (ALT/SGPT) 19 U/L Total Bilirubin 0.6 MG/DL Sodium Level 138 MEQ/L 140 MEQ/L 140 MEQ/L 144 MEQ/L Potassium Level 5.8 MEQ/L 5.7 MEQ/L 5.2 MEQ/L 4.3 MEQ/L Chloride Level 111 MEQ/L 112 MEQ/L 114 MEQ/L 111 MEQ/L Carbon Dioxide Level 15.8 MEQ/L 15.0 MEQ/L 14.0 MEQ/L 19.6 MEQ/L Anion Gap 11 MEQ/L 13 MEQ/L 12 MEQ/L 13 MEQ/L Estimat Glomerular Filtration Rate 6 ML/MIN 6 ML/MIN 6 ML/MIN 6 ML/MIN Lactic Acid Level 0.6 mmol/L 0.8 mmol/L Test 10/13/16 19:39 10/14/16 04:50 C-Reactive Protein 8.40 MG/DL Blood Urea Nitrogen 71 MG/DL Creatinine 6.26 MG/DL Random Glucose 105 MG/DL Total Protein 7.7 GM/DL Calcium Level 7.2 MG/DL Sodium Level 144 MEQ/L Potassium Level 4.0 MEQ/L Chloride Level 108 MEQ/L Carbon Dioxide Level 21.2 MEQ/L Anion Gap 15 MEQ/L Estimat Glomerular Filtration Rate 7 ML/MIN Protein Corrected Calcium 7.0 MG/DL Microbiology Date/Time Source Procedure Growth Status 10/13/16 15:30 Blood Peripheral Aerobic Blood Culture - Preliminary NO GROWTH IN 1 DAY Resulted 10/13/16 15:30 Blood Peripheral Anaerobic Blood Culture - Preliminary NO GROWTH IN 1 DAY Resulted 10/13/16 14:30 Blood Line Aerobic Blood Culture - Preliminary NO GROWTH IN 1 DAY Resulted 10/13/16 14:30 Blood Line Anaerobic Blood Culture - Preliminary NO GROWTH IN 1 DAY Resulted 10/13/16 14:15 Blood Peripheral Aerobic Blood Culture - Preliminary NO GROWTH IN 1 DAY Resulted 10/13/16 14:15 Blood Peripheral Anaerobic Blood Culture - Preliminary NO GROWTH IN 1 DAY Resulted 10/12/16 18:30 Blood Peripheral Aerobic Blood Culture - Preliminary Gram Negative Seun Resulted 10/12/16 18:30 Blood Peripheral Anaerobic Blood Culture - Preliminary NO GROWTH IN 2 DAYS Resulted 10/12/16 18:15 Blood Peripheral Aerobic Blood Culture - Preliminary Gram Negative Seun Resulted 10/12/16 18:15 Blood Peripheral Anaerobic Blood Culture - Preliminary NO GROWTH IN 2 DAYS Resulted 10/13/16 06:40 Esophageal MRSA Surveillance Culture - Preliminary RESULTS PENDING Resulted 10/13/16 15:30 Urine Catheterized Urine Urine Culture - Preliminary Yeast Species Resulted 10/13/16 16:15 Wound Foot Gram Stain - Final Resulted 10/13/16 16:15 Wound Culture - Preliminary Pseudomonas Species Resulted 10/13/16 15:30 Catheter Tip Other Fungal Culture Pending Received 10/13/16 15:30 Catheter Tip Other Wound Culture - Preliminary NO GROWTH IN 24 HOURS. Resulted 10/13/16 14:00 Wound Foot Gram Stain - Final Resulted 10/13/16 14:00 Wound Culture - Preliminary Pseudomonas Species Resulted Imaging Upper Extremity Ultrasound 10/13/16 0000 Signed Impressions: Service Date/Time: Thursday, October 13, 2016 09:17 - CONCLUSION: 1. No DVT. 2. Subcutaneous edema observed. Wilner Potter Jr., MD Lower Extremity Ultrasound 10/13/16 0000 Signed Impressions: Service Date/Time: Thursday, October 13, 2016 08:57 - CONCLUSION: 1. Study has some limitations as detailed above. No DVT observed. Wilner Potter Jr., MD Lower Extremity CT 10/13/16 0000 Signed Impressions: Service Date/Time: Thursday, October 13, 2016 21:35 - CONCLUSION: Ulcer at the region of the base of the fifth metatarsal. There appears to be chronic and acute changes in this region. The acute changes are worrisome for osteomyelitis at the base of the fifth metatarsal. Ricco Fuentes MD Chest X-Ray 10/13/16 0000 Signed Impressions: Service Date/Time: Thursday, October 13, 2016 15:05 - CONCLUSION: Support apparatus in good position without pneumothorax. Roman Montiel MD FACR Chest CT 10/13/16 0000 Signed Impressions: Service Date/Time: Thursday, October 13, 2016 21:27 - CONCLUSION: 1. Patchy areas of consolidation seen bilaterally being worse on the right. These could represent areas of inflammatory/infectious disease. Focal round lesions to suggest septic emboli are not clearly identified. 2. Edema seen at the right superficial chest and abdomen regions. The cause of for this asymmetric edema is not known. 3. Mild ascites. Ricco Fuentes MD Abdomen CT 10/13/16 0000 Signed Impressions: Service Date/Time: Thursday, October 13, 2016 21:27 - CONCLUSION: 1. Mild ascites seen around the liver. 2. Superficial edema seen bilaterally in the subcutaneous tissues. This is asymmetric and being much more prominent on the right. 3. Small area of increased density seen independently in the gallbladder representing either small gallstones or milk of calcium. Ricco Fuentes MD Renal Ultrasound 10/12/16 0000 Signed Impressions: Service Date/Time: September 20:54 - CONCLUSION: Normal appearance of the kidneys. Ricco Fuentes MD Physical Exam GENERAL:Morbidly obese dark skinned female, in no apparent distress. Sedated on the vent SKIN: Diffuse rash in her whole trunk, UE and both thighs - some looks chronic, but she has the erythematous rash that has some brown centers, some are blanching. HEAD: Atraumatic. Normocephalic. No temporal or scalp tenderness. EYES: Pupils equal round and reactive. No scleral icterus. No injection or drainage. ENT: Intubated. NECK: Large neck. Has bleeding at vascath site CARDIOVASCULAR: Distant HS. No murmur audible. RESPIRATORY: Clear to auscultation. Breath sounds equal bilaterally. No wheezes , rales, or rhonchi. GASTROINTESTINAL: Abdomen soft, obese, no reaction to palpation, no guarding, pannus with erythema and moisture. MUSCULOSKELETAL: Left LE with ulcer noted with packing with foul smelling discharge. 1.5 cm opening, deep approx 1.5 cm ? bone probed. Chronic venous stasis changes. NEUROLOGICAL: Sedated. Sacrum: 2 non stageable ulcers. Psych: could not be assessed. Assessment & Plan Remarks Assessment and Plan Severe Sepsis present on admission GNR sepsis, ?PICC, ?L foot Probable PICC line site infection Pneumonia: septic emboli or aspiration PNA. Acute renal failure: Vanco induced, prerenal Rash: Vanco IV, fungemia related diffuse rash Acute metabolic encephalopathy: sepsis, metabolic. DM2 with Nephropathy, legal blondness (? DM retinopathy). Acute Osteomyelitis, non healing ulcer likely infected as purulence noted. Diarrhea present on admission: check Cdiff as pt was on antibiotics. UTI Recs: Continue Cefepime IV (on days of HD to be given after HD) Continue Dapto IV(on days of HD to be given after HD) Continue Micafungin IV (Re: ? Fungemia line related) Continue Flagyl IV (once able to tolerate PO ok to change to PO flagyl) Follow C/S Podiatry consult Monitor progress D/W Kait Hensley MD Oct 14, 2016 14:55
[2016-10-14] MEDS: GELATIN 12 MM/7 MM FOAM TOP PRN (15:22)
--- NOTE | 2016-10-14 16:27 | PD.POD ---
Subjective Remarks Intubated and sedated, Hx from family possible old ankle fracture, unsure which side. Family feels she has reaction in ABX for OM of the left foot. Past Med/Surg/Social History Past Medical History Endocrine: REPORTS HX OF: Diabetes mellitus Cardiovascular: REPORTS HX OF: Hyperlipidemia, Hypertension Neurologic: REPORTS HX OF: Stroke Past Surgical History Musculoskeletal: DENIES HX OF: Joint replacement, Other musculoskeletal srg Social History Smoking Status: Never Smoker Objective Vital Signs Vital Signs Date Time Temp Pulse Resp B/P (MAP) Pulse Ox O2 Delivery O2 Flow Rate FiO2 10/14/16 15:32 100 40 10/14/16 14:00 78 10/14/16 12:05 100 40 10/14/16 12:00 98.2 78 16 156/70 (98) 100 10/14/16 12:00 40 10/14/16 12:00 78 10/14/16 10:00 75 10/14/16 08:00 40 10/14/16 08:00 98.1 73 16 149/70 (96) 100 10/14/16 08:00 73 10/14/16 07:36 100 40 10/14/16 07:00 100 Mechanical Ventilator 40 10/14/16 06:00 72 10/14/16 04:18 100 40 10/14/16 04:00 50 10/14/16 04:00 98.3 71 28 145/66 (92) 100 10/14/16 04:00 71 10/14/16 02:00 70 10/14/16 01:00 100 40 10/14/16 00:00 70 10/14/16 00:00 98.4 70 16 138/62 (87) 100 10/14/16 00:00 50 10/13/16 22:00 70 10/13/16 21:20 100 100 10/13/16 21:00 100 Mechanical Ventilator 40 10/13/16 20:55 100 40 10/13/16 20:00 72 10/13/16 20:00 98.0 72 17 138/64 (88) 100 Automatic Cuff 10/13/16 20:00 50 10/13/16 19:00 100 Mechanical Ventilator 50 10/13/16 18:00 69 Coded Allergies: morphine (Unverified Allergy, Unknown, 09/26/16) vancomycin (Verified Adverse Reaction, Unknown, Rash, 10/12/16) Medications and IVs Administered Medications Medications (Trade) Dose Ordered Sig/[place] Route PRN Reason Start Time Stop Time Status Last Admin Dose Admin Sodium Chloride (NS Flush) 2 ml BID IV FLUSH 10/12/16 21:00 10/14/16 10:06 Heparin Sodium (Porcine) (Heparin Inj) 5,000 units Q8H SQ 10/13/16 06:00 10/14/16 12:13 Ipratropium [place] (Atrovent Neb) 0.5 mg Q6HR NEB NEB 10/13/16 04:00 10/14/16 15:32 Lactobacillus Acidophilus (Lactinex) 1 tab TIDAC PO 10/13/16 08:00 10/14/16 15:46 Epinephrine HCl 8 mg/Dextrose 250 ml @ 5.62 mls/hr TITRATE PRN IV Blood Pressure Management 10/13/16 09:00 10/13/16 09:07 Micafungin Sodium 150 mg/Sodium Chloride 100 ml @ 100 mls/hr Q24H IV 10/13/16 17:00 10/13/16 18:24 Daptomycin 1000 mg/Sodium Chloride 100 ml @ 200 mls/hr Q48H IV 10/13/16 16:00 10/13/16 17:00 Cefepime HCl 1000 mg/Sodium Chloride 100 ml @ 200 mls/hr Q24H IV 10/13/16 15:00 10/14/16 14:35 Metronidazole 100 ml @ 100 mls/hr Q8H IV 10/13/16 16:00 10/14/16 15:46 Albumin Human (Albumin 25% Inj) 25 gm UNSCH PRN IV WITH DIALYSIS 10/13/16 16:00 10/14/16 08:19 Heparin Sodium (Porcine) (Heparin Inj) UNSCH PRN .XX WITH DIALYSIS 10/13/16 16:00 10/14/16 08:18 Gentamicin Sulfate (Gentamicin (Dialysis) Inj) 20 mg UNSCH PRN IV WITH DIALYSIS 10/13/16 16:00 10/14/16 08:18 Gelatin (Gelfoam 12 Mm/7 Mm Top) 1 foam UNSCH PRN TOP SEE LABEL COMMENTS 10/13/16 16:00 10/14/16 15:22 Propofol 100 ml @ 4.128 mls/ hr TITRATE PRN IV SEDATION 10/13/16 19:15 10/14/16 10:07 Other Results SPECIMEN #: [id number] GLORIA: 10/13/16 1615 STATUS: RES RECD: 10/13/[address]: Mark Grayson DPReece PT ID: Pawel BOX/PROVIDER ID: SOURCE: WOUND COPY TO: Ty Campbell MD SPDESC: FOOT Francisco Javier Quiros MD SPDESC: FOOT Lilibeth Johnson MD SPDESC: FOOT VodaJay MD SPDESC: FOOT [facility] BILL CLIENT: ORDERED: WOUND CULTURE COMMENTS: Comment: left foot QUERIES: Method of Collection: SWAB ACT WKST: GS 10/13/16 #5 WOUNDS 10/14/16 #1 Procedure Result Verified Site GRAM STAIN Final 10/14/16-0841 RARE WBC NO ORGANISMS SEEN WOUND CULTURE Preliminary 10/14/16-1400 HEAVY GROWTH PSEUDOMONAS SPECIES- FURTHER ID TO FOLLOW Refer to culture [id number] collected 10/13/16 for susceptibility testing results. Last 72 hours Impressions Upper Extremity Ultrasound 10/13/16 Signed Impressions: Service Date/Time: Thursday, October 13, 2016 09:17 - CONCLUSION: 1. No DVT. 2. Subcutaneous edema observed. Wilner Potter Jr., MD Lower Extremity Ultrasound 10/13/16 Signed Impressions: Service Date/Time: Thursday, October 13, 2016 08:57 - CONCLUSION: 1. Study has some limitations as detailed above. No DVT observed. Wilner Potter Jr., MD Lower Extremity CT 10/13/16 Signed Impressions: Service Date/Time: Thursday, October 13, 2016 21:35 - CONCLUSION: Ulcer at the region of the base of the fifth metatarsal. There appears to be chronic and acute changes in this region. The acute changes are worrisome for osteomyelitis at the base of the fifth metatarsal. Ricco Fuentes MD Chest X-Ray 10/13/16 Signed Impressions: Service Date/Time: Thursday, October 13, 2016 15:05 - CONCLUSION: Support apparatus in good position without pneumothorax. Roman Montiel MD FACR Chest CT 10/13/16 Signed Impressions: Service Date/Time: Thursday, October 13, 2016 21:27 - CONCLUSION: 1. Patchy areas of consolidation seen bilaterally being worse on the right. These could represent areas of inflammatory/infectious disease. Focal round lesions to suggest septic emboli are not clearly identified. 2. Edema seen at the right superficial chest and abdomen regions. The cause of for this asymmetric edema is not known. 3. Mild ascites. Ricco Fuentes MD Abdomen CT 10/13/16 Signed Impressions: Service Date/Time: Thursday, October 13, 2016 21:27 - CONCLUSION: 1. Mild ascites seen around the liver. 2. Superficial edema seen bilaterally in the subcutaneous tissues. This is asymmetric and being much more prominent on the right. 3. Small area of increased density seen independently in the gallbladder representing either small gallstones or milk of calcium. Ricco Fuentes MD Chest X-Ray 10/12/16 1809 Signed Impressions: Service Date/Time: September 18:24 - CONCLUSION: Suspected mild atelectasis or consolidation at the left base. The heart size is borderline enlarged. Ricco Fuentes MD Renal Ultrasound 10/12/16 Signed Impressions: Service Date/Time: September 20:54 - CONCLUSION: Normal appearance of the kidneys. Ricco Fuentes MD Ankle Xrays ordered Physical Exam Remarks Bilateral lower extremities are examined. There is noted to be chronic edema type changes consistent with lymphedema. Right lower extremity there is no obvious signs of ulceration. Left lower extremity - there appears to be a full-thickness ulceration the likely probes to the fifth metatarsal and/or cuboid. There is noted to be mixed serous fibrotic as well as serosanguineous drainage coming from the wound. There is an indurated dorsum of the foot, however, upon palpating the foot, ankle and leg, there was no obvious signs of soft tissue emphysema or gas within the tissue. There is no malodor. The foot appears to be warm. Sensation unobtainable. The patient has a rather significant increased joint mobility at the level of the ankle and the talonavicular joint, possible suggestive of early Charcot versus ligamentous abnormality. Pulses are hard to palpate through the edema of the dorsum of the foot and the ankle, however, palpable. Assessment & Plan A/P BL LE Swelling, Left foot ulcer OM 5th metatarsal. Packing changed continue ABx treatment, +pseudomonas from left foot wound, ankle xrays ordered. Woundcare for unless patient improves, FU 2-3 days. Mark Grayson DPReece Oct 14, 2016 16:27
[2016-10-14] MEDS: MICAFUNGIN INJ 150 MG in SODIUM CHLORIDE 0.9% INJ 100 ML IV SCH (17:01)
--- NOTE | 2016-10-14 17:33 | RADRPT ---
EXAM DATE/TIME: 10/14/2016 17:01 [facility] COMPARISON: No previous studies available for comparison. INDICATIONS : Swelling. MEDICAL HISTORY : None. SURGICAL HISTORY : None. ENCOUNTER: Initial ACUITY: 1 day PAIN SCORE: Non-responsive. LOCATION: Right Ankle FINDINGS: Marked soft tissue swelling is evident with the kidneys calcifications. There is no gas in the soft tissues. Moderate degenerative changes are evident. CONCLUSION: Marked soft tissue swelling with subcutaneous calcifications. Negative for fracture. Roman Montiel MD FACR on October 14, 2016 at 17:31 Board Certified Radiologist. This report was verified electronically.
--- NOTE | 2016-10-14 17:36 | RADRPT ---
EXAM DATE/TIME: 10/14/2016 16:51 [facility] COMPARISON: No previous studies available for comparison. INDICATIONS : Swelling. MEDICAL HISTORY : None. SURGICAL HISTORY : None. ENCOUNTER: Initial ACUITY: 1 day PAIN SCORE: Non-responsive. LOCATION: Left Ankle FINDINGS: Marked soft tissue swelling with subcutaneous calcifications are noted. Degenerative changes are mariel dent. There is no acute fracture. CONCLUSION: Marked soft tissue swelling with subcutaneous calcifications. Roman Montiel MD FACR on October 14, 2016 at 17:33 Board Certified Radiologist. This report was verified electronically.
[2016-10-14] MEDS: FAMOTIDINE 40 MG/5 ML LIQ 50 ML BTL NG SCH (20:14)
[2016-10-15] VITALS (18 sets, daily range): BP systolic 146–177; BP diastolic 64–86; PULSE 76–82; RESP 14–16; TEMP 97.5–98.2; O2SAT 100
[2016-10-15] MEDS: PROPOFOL 1000 MG/100 ML IV PRN ×3 (01:22→19:55)
[2016-10-15 04:12] LABS: HEMATOCRIT 22.9 % (35.0-46.0); MEAN CELL VOLUME 95.8 FL (80.0-100.0); MEAN CORPUSCULAR HGB CONC 32.3 % (32.0-36.0); PLATELET COUNT 290 TH/MM3 (150-450); RED BLOOD COUNT 2.39 MIL/MM3 (4.00-5.30); RED CELL DISTRIBUTION WIDTH 19.2 % (11.6-17.2); REVIEW FLAG FINAL; WHITE BLOOD COUNT 7.8 TH/MM3 (4.0-11.0)
[2016-10-15 04:39] LABS: BICARBONATE 25.5 MEQ/L (21.0-32.0); POTASSIUM 3.5 MEQ/L (3.5-5.1)
[2016-10-15] MEDS: RESP: IPRATROPIUM 0.5 MG/2.5 ML NEB NEB SCH ×4 (04:52→20:26)
[2016-10-15 04:55] LABS: CALCIUM-PROTEIN CORRECTED 7.1 MG/DL (8.5-10.1)
[2016-10-15] MEDS: INSULIN NovoLIN REGULAR SUPPLEMENTAL SCALE SQ SCH ×5 (05:14→23:08)
[2016-10-15] MEDS: HEPARIN SODIUM - SQ 10,000 UNITS/ML VIAL SQ SCH ×3 (05:14→21:05)
[2016-10-15] MEDS ORDERED: SILVER NITR/POTASSIUM NITRATE APPLICATORS TOPICAL ONE (09:00)
[2016-10-15] MEDS: metroNIDAZOLE 500 MG INJ 100 ML IV SCH ×3 (09:19→23:08)
[2016-10-15] MEDS: FAMOTIDINE 40 MG/5 ML LIQ 50 ML BTL NG SCH ×2 (09:19→21:05)
[2016-10-15] MEDS: LACTOBACILLUS ACIDOPHILUS TAB PO SCH ×3 (09:19→17:00)
[2016-10-15] MEDS: SODIUM CHLORIDE 0.9% FLUSH 10 ML FLUSH IV FLUSH SCH ×2 (09:19→21:05)
--- NOTE | 2016-10-15 10:15 | HHI.CCPN ---
Subjective Remarks/Hospital Course Hospital Course: This is a 51yF from a SNF who was being treated for chronic LLE cellulitis with approximately 6 months of vancomycin through an indwelling right arm PICC line, who presents with worsening creatinine found at her SNF and altered mental status. On arrival to the ED, she had a Cr 7.7, has a chronic indwelling black catheter and has not had any urine per report in the last few days. Renal ultrasound was negative for hydronephrosis. She also has a excoriating rash over her trunk and arms. She was initially admitted to the floor, but rapid responsed for hypotension and altered mental status. On my evaluation in the ICU , she is very altered and a poor historian. She endorses needing to have a bowel movement, though she has a rectal tube in place with large amount of liquid stool. She is quite agitated and is preventing a full history and physical exam. On bedside critical care echocardiogram, she has a hyperdynamic LV, mildly dilated RV, and clinically significant tricuspid regurgitation with an estimated trans-tricuspid gradient of ~60 mmHg. There is no pericardial effusion. IVC is dilated at 2.5cm without any respiratory variation. Critical care medicine is consulted to evaluate and manage her hypotension and altered mental status. She is additionally severely acidotic with a pH of 7.1, base deficit 10, pco2 48: she is not compensating appropriately. The remainder of the history is found from chart review due to the patient's clinical condition. Subjective: 10/14: off vasopressors and inotropes, but remains encephalopathic, intubated. HD again today. [place] without overt endocarditis. blood cultures growing gram negative rods and CT leg with probable osteomyelitis. off pathway without much overall improvements. 10/15: vascath with significant oozing. pursestring suture placed. cultures growing pseudomonas in blood and wound, also with GPCs in blood and yeast in urine. failed cpap this morning for apnea and hypoxia. no significant improvements. Objective Vital Signs Date Time Temp Pulse Resp B/P (MAP) Pulse Ox O2 Delivery O2 Flow Rate FiO2 10/15/16 07:44 100 40 10/15/16 06:00 81 10/15/16 04:00 97.5 16 156/74 (101) 10/14/16 19:00 Mechanical Ventilator 10/13/16 05:00 2.00 Intake and Output 910/15/16 10/15/16 07:59 15:59 23:59 Intake Total 1072 ml Output Total 100 ml Balance 972 ml Result Diagram: 10/15/16 0348 10/15/16 0348 Other Results Microbiology Date/Time Source Procedure Growth Status 10/13/16 06:40 Esophageal MRSA Surveillance Culture - Final NO MRSA ISOLATED Complete Imaging Last Impressions Upper Extremity Ultrasound 10/13/16 0000 Signed Impressions: Service Date/Time: Thursday, October 13, 2016 09:17 - CONCLUSION: 1. No DVT. 2. Subcutaneous edema observed. Wilner Potter Jr., MD Lower Extremity Ultrasound 10/13/16 0000 Signed Impressions: Service Date/Time: Thursday, October 13, 2016 08:57 - CONCLUSION: 1. Study has some limitations as detailed above. No DVT observed. Wilnre Potter Jr., MD Lower Extremity CT 10/13/16 Signed Impressions: Service Date/Time: Thursday, October 13, 2016 21:35 - CONCLUSION: Ulcer at the region of the base of the fifth metatarsal. There appears to be chronic and acute changes in this region. The acute changes are worrisome for osteomyelitis at the base of the fifth metatarsal. Ricco Fuentes MD Chest X-Ray 10/13/16 Signed Impressions: Service Date/Time: Thursday, October 13, 2016 15:05 - CONCLUSION: Support apparatus in good position without pneumothorax. Roman Montiel MD FACR Chest CT 10/13/16 Signed Impressions: Service Date/Time: Thursday, October 13, 2016 21:27 - CONCLUSION: 1. Patchy areas of consolidation seen bilaterally being worse on the right. These could represent areas of inflammatory/infectious disease. Focal round lesions to suggest septic emboli are not clearly identified. 2. Edema seen at the right superficial chest and abdomen regions. The cause of for this asymmetric edema is not known. 3. Mild ascites. Ricco Fuentes MD Abdomen CT 10/13/16 Signed Impressions: Service Date/Time: Thursday, October 13, 2016 21:27 - CONCLUSION: 1. Mild ascites seen around the liver. 2. Superficial edema seen bilaterally in the subcutaneous tissues. This is asymmetric and being much more prominent on the right. 3. Small area of increased density seen independently in the gallbladder representing either small gallstones or milk of calcium. Ricco Fuentes MD Renal Ultrasound 10/12/16 0000 Signed Impressions: Service Date/Time: September 20:54 - CONCLUSION: Normal appearance of the kidneys. Ricco Fuentes MD Objective Remarks gen: middle-aged, morbidly obese female, intubated and sedated. heent: perrl. mucous membranes moist. large tongue. neck: very large neck circumference. unable to assess jvd. trachea midline. left SC TLC site looks clean and dry. left IJ vascath with significant hematoma and oozing from around insertion site and suture holes. chest: intubated, prvc, 40% fio2. equal chest rise. distant breath sounds. bilateral coarse rales. cv: normal rate, regular rhythm. sinus by telemetry. abd: morbidly obese, soft, nontender, nondistended. extr: 3+ peripheral edema. LLE wrapped in kierra bandage. distal pulses 1+. skin: there is a desquamated rash which has areas of excoriation and scaling over the trunk and upper arms bilaterally. it does not [place]. slight improvement since yesterday. neuro: RASS -3 moves all extremities. withdraws to pain. does not follow commands. A/P Assessment and Plan Assessment: 51yF with LLE cellulitis presents now with severe oligoanuric acute kidney injury and associated metabolic encephalopathy, septic shock, gram negative uzma bacteremia, fungal urinary tract infection, osteomyelitis, multi- organ system dysfunction. remains critically ill and off pathway. if we withdrew support, she would . Failing CPAP trials. still volume overloaded. She remains critically ill at this time with multiple organ systems which are currently life-threatening. Plan by systems: Neurologic: Metabolic Encephalopathy secondary to Uremia and sepsis - frequent neuro checks - avoid long-acting sedating meds - propofol for goal RASS -2. Respiratory: Obesity Hypoventilation Syndrome COPD Sleep Apnea Acute hypoxic and hypercarbic respiratory failure- persistent, no improvement. Pulmonary Edema - intubated 10/13 for progressive hypoxia - wean fio2 for goal spo2 > 90% - vent bundle, hob at 30 degrees, nebs - daily CPAP trials. Cardiovascular: Septic Shock- resolving. Severe Tricuspid Regurgitation - keep central line and art line. - needs continued volume removal via IHD Renal: Acute oligo anuric kidney injury requiring renal replacement therapy - nephrology consult - HD per nephrology. needs volume off. -- Strict I/Os FEN/GI: Severe metabolic acidosis- resolved Hyperkalemia- resolved. Morbid Obesity - continue TF, nepro. nutrition consult for goal. Heme/ID: Chronic anemia- likely secondary to chronic disease Septic Shock LLE osteomyelitis Pseudomonas bacteremia Gram Positive Bacteremia Pseudomonas osteomyelitis Fungal Urinary Tract Infection - daily cbc - will not transfuse at this time given concern for possible volume overload from acute kidney injury - follow up sensitivities - ID consult - continue BSAbx. Endocrine: Diabetes -- SSI, medium scale, every 6 Prophylaxis: GI Prophylaxis pepcid DVT Prophylaxis -- SCDs Sub-cutaneous heparin Lines: - 10/13 left SC TLC - 10/13 left IJ vascath - 10/13 right radial arterial line - Black Dispo: remain in the ICU. remains critically ill. This patient remains critically ill with one or more organ systems which are or may become a threat to life. I have spent in excess of 37 minutes discontinuously in the care and management of this patient. This time is exclusive of procedures, and includes, but is not limited to, evaluation of the patient, review of the medical record, discussions with family, consultants, nursing staff, or respiratory therapy, and documentation in the medical record. Jordon Haines MD Oct 15, 2016 10:15
[2016-10-15] MEDS: GELATIN 12 MM/7 MM FOAM TOP PRN (10:39)
--- NOTE | 2016-10-15 13:39 | HHI.NPPN ---
Subjective History of Present Illness 51 y/o female who was sent from assisted for altered mental status. She has a hx of DM II, CVA, legally blind,neuropathy, COPD, HTN, anemia and sleep apnea. She had a PICC line and was being treated with IV Zosyn and vancomycin for several months for suspected osteomyelitis. Additional Remarks Patient remain intubated and now off sedation, on CPAP. Objective Data Data 10/15/16 10/16/16 19:00 07:00 Intake Total 100 ml Output Total 0 ml Balance 100 ml Intake IV Total 100 ml Tube Feeding Residual Discard 0 ml Vital Signs Date Time Temp Pulse Resp B/P (MAP) Pulse Ox O2 Delivery O2 Flow Rate FiO2 10/15/16 12:00 80 10/15/16 12:00 98.1 80 14 154/71 (98) 100 10/15/16 12:00 40 10/15/16 10:00 81 10/15/16 08:00 82 10/15/16 08:00 97.7 82 16 177/86 (116) 100 10/15/16 08:00 40 10/15/16 07:44 100 40 10/15/16 07:00 100 Mechanical Ventilator 40 10/15/16 06:00 81 10/15/16 04:52 100 40 10/15/16 04:00 40 10/15/16 04:00 97.5 76 16 156/74 (101) 100 10/15/16 04:00 76 10/15/16 02:00 76 10/15/16 01:01 100 40 10/15/16 00:00 97.8 76 16 146/64 (91) 100 10/15/16 00:00 76 10/15/16 00:00 40 10/14/16 22:00 76 10/14/16 21:00 40 10/14/16 20:05 100 40 10/14/16 20:00 97.9 75 13 122/51 (74) 100 10/14/16 20:00 40 10/14/16 20:00 75 10/14/16 19:00 100 Mechanical Ventilator 40 10/14/16 18:00 76 10/14/16 16:00 40 10/14/16 16:00 81 10/14/16 16:00 98.0 81 14 159/74 (102) 100 10/14/16 15:35 40 10/14/16 15:32 100 40 10/14/16 14:00 78 -: 10/15/16 0348 10/15/16 0348 Physical Exam General Appearance Remarks Intubated and off sedation. Eyes Eye Exam: Pupils Equal Neck Neck Exam: Neck Supple Pulmonary Resp Exam: Breath Sounds Equal, No Distress, Rhonchi, Decreased Bases Cardiology CV Exam: Regular, Normal Sinus Rhythm Gastrointestinal/Abdomen GI Exam: Soft, Non-Tender, Distended Extremeties Extremities Exam: Moderate Edema, Pitting Edema, Dependent Edema Neurologic Neuro Exam: Obtunded Assessment/Plan Problem List: (1) Acute renal failure ICD Codes: N17.9 - Acute kidney failure, unspecified Status: Acute Plan: She apparently has a baseline creatinine of 1 FREDI from ATN, secondary to dehydration, also the possibility of vancomycin induced nephrotoxicity; may also be due to sepsis at this time she has become anuric , started on Hemodialysis. a vascath has been placed continue pressor support to maintain MAP > 65mmHg she is not on IVF, will need fluid removal with HD obtain UA for analysis avoid nephrotoxic medications, renally dose when appropriate. HD done yesterday and [address] Quiros to follow , possible HD on . (2) Sepsis ICD Codes: A41.9 - Sepsis, unspecified organism Plan: hypothermic, hypotensive PICC was removed, catheter tip sent to micro for analysis imaging ordered to evaluate for osteomyelitis of left foot she was pancultured echo does not reveal endocarditis, EF 60-65% (3) Hyperkalemia ICD Codes: E87.5 - Hyperkalemia Status: Acute Plan: treated medically yesterday to be dialyzed today as above (4) Metabolic acidosis ICD Codes: E87.2 - Acidosis Status: Acute Plan: due to renal failure should correct with dialysis Problem Qualifiers (1) Acute renal failure: Qualified Codes: N17.9 - Acute kidney failure, unspecified Zi Kemp MD Oct 15, 2016 13:39
--- NOTE | 2016-10-15 15:08 | HHI.IDPN ---
Subjective Subjective Remarks ID COVERAGE is a 51 y/o F from a SNF who was being treated for chronic LLE cellulitis, non healing ulcer. Patient's past medical history significant for diabetes type 2 uncontrolled, diabetic nephropathy with baseline creatinine of 1.2, legal blindness likely secondary to diabetic retinopathy. She has a history of recurrent cellulitis and a nonhealing ulcer and has been treated for osteomyelitis in the past. Patient has been treated with IV antibiotics using PICC line in the past. Per discussion with her PCP at [facility] patient has received IV antibiotics multiple times in the past. She was being followed by wound care at residential and decision was made to start IV antibiotics Vanco IV and possibly Zosyn IV using a PICC line. Unknown duration of PICC line at this point. Patient presents with worsening creatinine found at her SNF and altered mental status. On arrival to the ED, she had a Cr 7.7, has a chronic indwelling black catheter and has not had any urine per report in the last few days. Renal ultrasound was negative for hydronephrosis. She also has a excoriating rash over her trunk and arms. She was initially admitted to the floor, but rapid response called for hypotension and altered mental status. She was severely acidotic with a pH of 7.1, base deficit 10, pco2 48. At the time of my evaluation patient is currently in intensive care unit and has been intubated for altered mental status. Patient is also undergoing placement of PICC line. She has no urine output and has a Black bag in place. This Black was present on admission. She also had diarrhea on admission. Her risk factors for C. difficile her prior antibiotic usage and senior living placement. She is currently sedated and not on any vasopressors. Infectious disease is consulted for evaluation and management of severe sepsis with multiorgan dysfunction syndrome, possible line related infection, acute osteomyelitis. Notes reviewed D/W RN Temps ok BP ok, not on pressors Awake, on CPAP - not in distress UO very low BC with GNR and Staph Wound C/S PSAE UC with yeast [place] with possible small veg on TV Notes to be scratching skin Antibiotics Cubicin Flagyl Cefepime Micafungin Lines LIJ vascath LSC TLC Past Medical History DM Legally blind COPD HTN anemia sleep apnea CVA neuropathy Afib Allergies: Coded Allergies: morphine (Unverified Allergy, Unknown, 09/26/16) vancomycin (Verified Adverse Reaction, Unknown, Rash, 10/12/16) Objective . Vital Signs Date Time Temp Pulse Resp B/P (MAP) Pulse Ox O2 Delivery O2 Flow Rate FiO2 10/15/16 12:00 80 10/15/16 12:00 98.1 80 14 154/71 (98) 100 10/15/16 12:00 40 10/15/16 11:33 100 40 10/15/16 11:33 40 10/15/16 10:00 81 10/15/16 08:00 82 10/15/16 08:00 97.7 82 16 177/86 (116) 100 10/15/16 08:00 40 10/15/16 07:44 100 40 10/15/16 07:00 100 Mechanical Ventilator 40 10/15/16 06:00 81 10/15/16 04:52 100 40 10/15/16 04:00 40 10/15/16 04:00 97.5 76 16 156/74 (101) 100 10/15/16 04:00 76 10/15/16 02:00 76 10/15/16 01:01 100 40 10/15/16 00:00 97.8 76 16 146/64 (91) 100 10/15/16 00:00 76 10/15/16 00:00 40 10/14/16 22:00 76 10/14/16 21:00 40 10/14/16 20:05 100 40 10/14/16 20:00 97.9 75 13 122/51 (74) 100 10/14/16 20:00 40 10/14/16 20:00 75 10/14/16 19:00 100 Mechanical Ventilator 40 10/14/16 18:00 76 10/14/16 16:00 40 10/14/16 16:00 81 10/14/16 16:00 98.0 81 14 159/74 (102) 100 10/14/16 15:35 40 10/14/16 15:32 100 40 10/15/16 10/15/16 10/16/16 15:00 23:00 07:00 Intake Total 100 ml Output Total 0 ml Balance 100 ml Intake IV Total 100 ml Tube Feeding Residual Discard 0 ml . Laboratory Tests Test 10/14/16 04:50 10/15/16 03:48 White Blood Count 10.4 TH/MM3 7.8 TH/MM3 Red Blood Count 2.47 MIL/MM3 2.39 MIL/MM3 Hemoglobin 7.7 GM/DL 7.4 GM/DL Hematocrit 23.6 % 22.9 % Mean Corpuscular Volume 95.6 FL 95.8 FL Mean Corpuscular Hemoglobin 31.1 PG 31.0 PG Mean Corpuscular Hemoglobin Concent 32.5 % 32.3 % Red Cell Distribution Width 19.2 % 19.2 % Platelet Count 309 TH/MM3 290 TH/MM3 Mean Platelet Volume 7.0 FL 7.2 FL Laboratory Tests Test 10/13/16 19:39 10/14/16 04:50 10/15/16 03:48 C-Reactive Protein 8.40 MG/DL Blood Urea Nitrogen 71 MG/DL 54 MG/DL Creatinine 6.26 MG/DL 4.94 MG/DL Random Glucose 105 MG/DL 134 MG/DL Total Protein 7.7 GM/DL 7.2 GM/DL Calcium Level 7.2 MG/DL 7.1 MG/DL Sodium Level 144 MEQ/L 143 MEQ/L Potassium Level 4.0 MEQ/L 3.5 MEQ/L Chloride Level 108 MEQ/L 106 MEQ/L Carbon Dioxide Level 21.2 MEQ/L 25.5 MEQ/L Anion Gap 15 MEQ/L 12 MEQ/L Estimat Glomerular Filtration Rate 7 ML/MIN 9 ML/MIN Protein Corrected Calcium 7.0 MG/DL 7.1 MG/DL Microbiology Date/Time Source Procedure Growth Status 10/13/16 15:30 Blood Peripheral Aerobic Blood Culture - Preliminary NO GROWTH IN 2 DAYS Resulted 10/13/16 15:30 Blood Peripheral Anaerobic Blood Culture - Preliminary NO GROWTH IN 2 DAYS Resulted 10/13/16 14:30 Blood Line Aerobic Blood Culture - Preliminary NO GROWTH IN 2 DAYS Resulted 10/13/16 14:30 Blood Line Anaerobic Blood Culture - Preliminary NO GROWTH IN 2 DAYS Resulted 10/13/16 14:15 Blood Peripheral Aerobic Blood Culture - Preliminary NO GROWTH IN 2 DAYS Resulted 10/13/16 14:15 Blood Peripheral Anaerobic Blood Culture - Preliminary NO GROWTH IN 2 DAYS Resulted 10/12/16 18:30 Blood Peripheral Aerobic Blood Culture - Preliminary Gram Negative Seun Resulted 10/12/16 18:30 Anaerobic Blood Culture - Preliminary Gram Negative Seun Staph Sp Coagulase Negative Resulted 10/12/16 18:15 Blood Peripheral Aerobic Blood Culture - Preliminary Pseudomonas Species Resulted 10/12/16 18:15 Anaerobic Blood Culture - Preliminary Pseudomonas Species Staph Sp Coagulase Negative Resulted 10/13/16 06:40 Esophageal MRSA Surveillance Culture - Final NO MRSA ISOLATED Complete 10/13/16 15:30 Urine Catheterized Urine Urine Culture - Final Ximena Albicans Complete 10/13/16 16:15 Wound Foot Gram Stain - Final Resulted 10/13/16 16:15 Wound Culture - Preliminary Pseudomonas Species Resulted 10/13/16 15:30 Catheter Tip Other Fungal Culture Pending Received 10/13/16 15:30 Catheter Tip Other Wound Culture - Preliminary NO GROWTH IN 48 HOURS. Resulted 10/13/16 14:00 Wound Foot Gram Stain - Final Resulted 10/13/16 14:00 Wound Culture - Preliminary Pseudomonas Species Resulted Imaging Upper Extremity Ultrasound 10/13/16 0000 Signed Impressions: Service Date/Time: Thursday, October 13, 2016 09:17 - CONCLUSION: 1. No DVT. 2. Subcutaneous edema observed. Wilner Potter Jr., MD Lower Extremity Ultrasound 10/13/16 0000 Signed Impressions: Service Date/Time: Thursday, October 13, 2016 08:57 - CONCLUSION: 1. Study has some limitations as detailed above. No DVT observed. Wilner Potter Jr., MD Lower Extremity CT 10/13/16 0000 Signed Impressions: Service Date/Time: Thursday, October 13, 2016 21:35 - CONCLUSION: Ulcer at the region of the base of the fifth metatarsal. There appears to be chronic and acute changes in this region. The acute changes are worrisome for osteomyelitis at the base of the fifth metatarsal. Ricco Fuentes MD Chest X-Ray 10/13/16 0000 Signed Impressions: Service Date/Time: Thursday, October 13, 2016 15:05 - CONCLUSION: Support apparatus in good position without pneumothorax. Roman Montiel MD FACR Chest CT 10/13/16 0000 Signed Impressions: Service Date/Time: Thursday, October 13, 2016 21:27 - CONCLUSION: 1. Patchy areas of consolidation seen bilaterally being worse on the right. These could represent areas of inflammatory/infectious disease. Focal round lesions to suggest septic emboli are not clearly identified. 2. Edema seen at the right superficial chest and abdomen regions. The cause of for this asymmetric edema is not known. 3. Mild ascites. Ricco Fuentes MD Abdomen CT 10/13/16 0000 Signed Impressions: Service Date/Time: Thursday, October 13, 2016 21:27 - CONCLUSION: 1. Mild ascites seen around the liver. 2. Superficial edema seen bilaterally in the subcutaneous tissues. This is asymmetric and being much more prominent on the right. 3. Small area of increased density seen independently in the gallbladder representing either small gallstones or milk of calcium. Ricco Fuentes MD Renal Ultrasound 10/12/16 0000 Signed Impressions: Service Date/Time: September 20:54 - CONCLUSION: Normal appearance of the kidneys. Ricco Fuentes MD Physical Exam GENERAL:Morbidly obese dark skinned female, in no apparent distress. Eyes open, on the vent SKIN: Diffuse rash in her whole trunk, UE and both thighs - some looks chronic, but she has the erythematous rash that has some brown centers, some are blanching. Some now looks papulovesicular in axilla areas, thigh/groin HEAD: Atraumatic. Normocephalic. No temporal or scalp tenderness. EYES: Pupils equal round and reactive. No scleral icterus. No injection or drainage. ENT: Intubated. NECK: Large neck. Has bleeding at vascath site CARDIOVASCULAR: Distant HS. No murmur audible. RESPIRATORY: Clear to auscultation. Breath sounds equal bilaterally. No wheezes , rales, or rhonchi. GASTROINTESTINAL: Abdomen soft, obese, no reaction to palpation, no guarding, pannus with erythema and moisture. MUSCULOSKELETAL: Left LE with ulcer noted with packing with foul smelling discharge. 1.5 cm opening, deep approx 1.5 cm ? bone probed. Chronic venous stasis changes. NEUROLOGICAL: Awake Sacrum: 2 non stageable ulcers. Psych: could not be assessed. Assessment & Plan Remarks Assessment and Plan Severe Sepsis present on admission GNR and GPC sepsis, ?PICC, ?L foot Probable PICC line site infection Pneumonia: septic emboli or aspiration PNA. Acute renal failure: Vanco induced, prerenal Rash: Vanco IV, fungemia related diffuse rash Acute metabolic encephalopathy: sepsis, metabolic. DM2 with Nephropathy, legal blondness (? DM retinopathy). Acute Osteomyelitis, non healing ulcer likely infected as purulence noted. Diarrhea present on admission: check Cdiff as pt was on antibiotics. UTI Recs: Continue Cefepime IV (on days of HD to be given after HD) Continue Dapto IV(on days of HD to be given after HD) Continue Micafungin IV (Re: ? Fungemia line related) Continue Flagyl IV (once able to tolerate PO ok to change to PO flagyl) Follow C/S Monitor progress Weaning per CCM D/W Kait Hensley MD Oct 15, 2016 15:08
[2016-10-15] MEDS: DAPTOmycin INJ 1,000 MG in SODIUM CHLORIDE 0.9% INJ 100 ML IV SCH (15:20)
[2016-10-15] MEDS: CEFEPIME INJ 1,000 MG in SODIUM CHLORIDE 0.9% INJ 100 ML IV SCH (15:20)
[2016-10-15] MEDS: MICAFUNGIN INJ 150 MG in SODIUM CHLORIDE 0.9% INJ 100 ML IV SCH (17:06)
[2016-10-15] MEDS: diphenhydrAMINE HCL 25 MG CAP PO SCH (21:05)
[2016-10-16] VITALS (17 sets, daily range): BP systolic 134–166; BP diastolic 62–75; PULSE 76–87; RESP 12–18; TEMP 97.8–98.8; O2SAT 1–100
[2016-10-16] MEDS: PROPOFOL 1000 MG/100 ML IV PRN ×2 (02:59→13:36)
[2016-10-16] MEDS: RESP: IPRATROPIUM 0.5 MG/2.5 ML NEB NEB SCH ×4 (04:18→20:40)
[2016-10-16 04:51] LABS: HEMATOCRIT 23.3 % (35.0-46.0); MEAN CELL VOLUME 96.6 FL (80.0-100.0); MEAN CORPUSCULAR HEMOGLOBIN 31.1 PG (27.0-34.0); MEAN CORPUSCULAR HGB CONC 32.2 % (32.0-36.0); PLATELET COUNT 277 TH/MM3 (150-450); RED BLOOD COUNT 2.42 MIL/MM3 (4.00-5.30); RED CELL DISTRIBUTION WIDTH 19.3 % (11.6-17.2); REVIEW FLAG FINAL; WHITE BLOOD COUNT 8.7 TH/MM3 (4.0-11.0)
[2016-10-16] MEDS: HEPARIN SODIUM - SQ 10,000 UNITS/ML VIAL SQ SCH ×3 (05:16→21:15)
[2016-10-16] MEDS: INSULIN NovoLIN REGULAR SUPPLEMENTAL SCALE SQ SCH ×3 (05:18→17:58)
[2016-10-16 05:30] LABS: BICARBONATE 25.3 MEQ/L (21.0-32.0); POTASSIUM 3.4 MEQ/L (3.5-5.1)
[2016-10-16 05:56] LABS: CALCIUM-PROTEIN CORRECTED 7.6 MG/DL (8.5-10.1)
[2016-10-16] MEDS: SODIUM CHLORIDE 0.9% FLUSH 10 ML FLUSH IV FLUSH SCH ×2 (08:44→21:00)
[2016-10-16] MEDS: FAMOTIDINE 40 MG/5 ML LIQ 50 ML BTL NG SCH ×2 (08:44→21:00)
[2016-10-16] MEDS: LACTOBACILLUS ACIDOPHILUS TAB PO SCH ×3 (08:44→16:12)
[2016-10-16] MEDS: metroNIDAZOLE 500 MG INJ 100 ML IV SCH ×2 (08:44→15:13)
[2016-10-16] MEDS: diphenhydrAMINE HCL 25 MG CAP PO SCH ×2 (08:44→21:14)
--- NOTE | 2016-10-16 08:57 | HHI.CCPN ---
Subjective Remarks/Hospital Course Hospital Course: This is a 51yF from a SNF who was being treated for chronic LLE cellulitis with approximately 6 months of vancomycin through an indwelling right arm PICC line, who presents with worsening creatinine found at her SNF and altered mental status. On arrival to the ED, she had a Cr 7.7, has a chronic indwelling black catheter and has not had any urine per report in the last few days. Renal ultrasound was negative for hydronephrosis. She also has a excoriating rash over her trunk and arms. She was initially admitted to the floor, but rapid responsed for hypotension and altered mental status. On my evaluation in the ICU , she is very altered and a poor historian. She endorses needing to have a bowel movement, though she has a rectal tube in place with large amount of liquid stool. She is quite agitated and is preventing a full history and physical exam. On bedside critical care echocardiogram, she has a hyperdynamic LV, mildly dilated RV, and clinically significant tricuspid regurgitation with an estimated trans-tricuspid gradient of ~60 mmHg. There is no pericardial effusion. IVC is dilated at 2.5cm without any respiratory variation. Critical care medicine is consulted to evaluate and manage her hypotension and altered mental status. She is additionally severely acidotic with a pH of 7.1, base deficit 10, pco2 48: she is not compensating appropriately. The remainder of the history is found from chart review due to the patient's clinical condition. Subjective: 10/14: off vasopressors and inotropes, but remains encephalopathic, intubated. HD again today. [place] without overt endocarditis. blood cultures growing gram negative rods and CT leg with probable osteomyelitis. off pathway without much overall improvements. 10/15: vascath with significant oozing. pursestring suture placed. cultures growing pseudomonas in blood and wound, also with GPCs in blood and yeast in urine. failed cpap this morning for apnea and hypoxia. no significant improvements. 10/16: Tolerating SBTs, will work to extubate. Objective Vital Signs Date Time Temp Pulse Resp B/P (MAP) Pulse Ox O2 Delivery O2 Flow Rate FiO2 10/16/16 08:00 35 10/16/16 08:00 98.8 77 13 141/69 (93) 100 10/16/16 07:00 Mechanical Ventilator 10/13/16 05:00 2.00 Intake and Output 10/16/16 10/16/16 10/17/16 08:00 16:00 00:00 Intake Total 780 ml Output Total 125.0 ml Balance 655.0 ml Result Diagram: 10/16/16 0414 10/16/16 0414 Other Results Microbiology Date/Time Source Procedure Growth Status 10/13/16 15:30 Urine Catheterized Urine Urine Culture - Final Ximena Albicans Complete 10/13/16 16:15 Wound Foot Gram Stain - Final Complete 10/13/16 16:15 Wound Culture - Final Pseudomonas Aeruginosa Complete 10/13/16 15:30 Catheter Tip Other Fungal Culture - Final Complete 10/13/16 15:30 Catheter Tip Other Wound Culture - Final NO GROWTH IN 72 HOURS Complete 10/13/16 14:00 Wound Foot Gram Stain - Final Complete 10/13/16 14:00 Wound Culture - Final Pseudomonas Aeruginosa Complete Imaging Last Impressions Upper Extremity Ultrasound 10/13/16 0000 Signed Impressions: Service Date/Time: Thursday, October 13, 2016 09:17 - CONCLUSION: 1. No DVT. 2. Subcutaneous edema observed. Wilner Potter Jr., MD Lower Extremity Ultrasound 10/13/16 0000 Signed Impressions: Service Date/Time: Thursday, October 13, 2016 08:57 - CONCLUSION: 1. Study has some limitations as detailed above. No DVT observed. Wilner Potter Jr., MD Lower Extremity CT 10/13/16 0000 Signed Impressions: Service Date/Time: Thursday, October 13, 2016 21:35 - CONCLUSION: Ulcer at the region of the base of the fifth metatarsal. There appears to be chronic and acute changes in this region. The acute changes are worrisome for osteomyelitis at the base of the fifth metatarsal. Ricco Fuentes MD Chest X-Ray 10/13/16 0000 Signed Impressions: Service Date/Time: Thursday, October 13, 2016 15:05 - CONCLUSION: Support apparatus in good position without pneumothorax. Roman Montiel MD FACR Chest CT 10/13/16 0000 Signed Impressions: Service Date/Time: Thursday, October 13, 2016 21:27 - CONCLUSION: 1. Patchy areas of consolidation seen bilaterally being worse on the right. These could represent areas of inflammatory/infectious disease. Focal round lesions to suggest septic emboli are not clearly identified. 2. Edema seen at the right superficial chest and abdomen regions. The cause of for this asymmetric edema is not known. 3. Mild ascites. Ricco Fuentes MD Abdomen CT 10/13/16 0000 Signed Impressions: Service Date/Time: Thursday, October 13, 2016 21:27 - CONCLUSION: 1. Mild ascites seen around the liver. 2. Superficial edema seen bilaterally in the subcutaneous tissues. This is asymmetric and being much more prominent on the right. 3. Small area of increased density seen independently in the gallbladder representing either small gallstones or milk of calcium. Ricco Fuentes MD Renal Ultrasound 10/12/16 0000 Signed Impressions: Service Date/Time: September 20:54 - CONCLUSION: Normal appearance of the kidneys. Ricco Fuentes MD Objective Remarks gen: middle-aged, morbidly obese female, intubated and sedated. heent: perrl. mucous membranes moist. large tongue. neck: very large neck circumference. unable to assess jvd. trachea midline. left SC TLC site looks clean and dry. left IJ vascath with significant hematoma and oozing from around insertion site and suture holes. chest: intubated, prvc, 40% fio2. equal chest rise. distant breath sounds. generally clear. cv: normal rate, regular rhythm. sinus by telemetry. abd: morbidly obese, soft, nontender, nondistended. extr: 3+ peripheral edema. LLE wrapped in kierra bandage. distal pulses 1+. skin: there is a desquamated rash which has areas of excoriation and scaling over the trunk and upper arms bilaterally. it does not [place]. neuro: RASS -1 moves all extremities. withdraws to pain. does follow commands. A/P Assessment and Plan Assessment: 51yF with LLE cellulitis presents now with severe oligoanuric acute kidney injury and associated metabolic encephalopathy, septic shock, gram negative uzma bacteremia, fungal urinary tract infection, osteomyelitis, multi- organ system dysfunction. remains critically ill and off pathway. if we withdrew support, she would . Failing CPAP trials. still volume overloaded. She remains critically ill at this time with multiple organ systems which are currently life-threatening. Plan by systems: Neurologic: Metabolic Encephalopathy secondary to Uremia and sepsis - frequent neuro checks - avoid long-acting sedating meds - taper off propofol for goal RASS -0 Respiratory: Obesity Hypoventilation Syndrome COPD Sleep Apnea Acute hypoxic and hypercarbic respiratory failure- persistent, no improvement. Pulmonary Edema - intubated 10/13 for progressive hypoxia - wean fio2 for goal spo2 > 90% - vent bundle, hob at 30 degrees, nebs - daily CPAP trials. Cardiovascular: Septic Shock- resolving. Severe Tricuspid Regurgitation - keep central line and art line. - needs continued volume removal via IHD Renal: Acute oligo anuric kidney injury requiring renal replacement therapy - nephrology consult - HD per nephrology. needs volume off. -- Strict I/Os FEN/GI: Severe metabolic acidosis- resolved Hyperkalemia- resolved. Morbid Obesity - continue TF, nepro. nutrition consult for goal. Heme/ID: Chronic anemia- likely secondary to chronic disease Septic Shock LLE osteomyelitis Pseudomonas bacteremia Gram Positive Bacteremia Pseudomonas osteomyelitis Fungal Urinary Tract Infection - daily cbc - will not transfuse at this time given concern for possible volume overload from acute kidney injury - follow up sensitivities - ID consult - continue BSAbx. Endocrine: Diabetes -- SSI, medium scale, every 6 Prophylaxis: GI Prophylaxis pepcid DVT Prophylaxis -- SCDs Sub-cutaneous heparin Lines: - 10/13 left SC TLC - 10/13 left IJ vascath - 10/13 right radial arterial line - Black Overall impression: Critically ill with ongoing sepsis and renal failure, requiring dialysis and mechanical ventilatory support. remain in the ICU. This patient remains critically ill with one or more organ systems which are or may become a threat to life. I have spent in excess of 40 minutes discontinuously in the care and management of this patient. This time is exclusive of procedures, and includes, but is not limited to, evaluation of the patient, review of the medical record, discussions with family, consultants, nursing staff, or respiratory therapy, and documentation in the medical record. Klaus Bartholomew MD Oct 16, 2016 08:57
[2016-10-16] MEDS: DEXAMETHASONE SOD PHOS 4 MG/ML VIAL IV PUSH SCH ×3 (10:39→17:57)
--- NOTE | 2016-10-16 10:59 | RADRPT ---
EXAM DATE/TIME: 10/16/2016 09:26 [facility] COMPARISON: CHEST SINGLE AP, October 13, 2016, 15:05. INDICATIONS : Short of breath. MEDICAL HISTORY : Diabetes mellitus type 2. Hypertension. Stroke. Hyperkalemia SURGICAL HISTORY : Right eye surgery ENCOUNTER: Subsequent ACUITY: 4 - 6 days PAIN SCORE: Non-responsive. LOCATION: Bilateral chest FINDINGS: Endotracheal tube tip at the superior margin of the clavicles. NG tube courses beneath the diaphragm. There is fluid in the minor fissure. Improved aeration of the right upper lobe and left lower lobe t miriam mild basilar airspace disease remains. There is cardiomegaly. Left jugular line tip overlies th e SVC. CONCLUSION: Improved aeration. Jayme Tobin MD on October 16, 2016 at 10:57 Board Certified Radiologist. This report was verified electronically.
--- NOTE | 2016-10-16 11:42 | HHI.NPPN ---
Subjective History of Present Illness 51 y/o female who was sent from [facility]ial for altered mental status. She has a hx of DM II, CVA, legally blind,neuropathy, COPD, HTN, anemia and sleep apnea. She had a PICC line and was being treated with IV Zosyn and vancomycin for several months for suspected osteomyelitis. Interval History On the ventilator. She was dialyzed on Sunday and Sunday with removal of 7 liters in two dialysis sessions. Objective Data Data 10/16/16 10/17/16 19:00 07:00 Output Total 0 ml Balance 0 ml Tube Feeding Residual Discard 0 ml Vital Signs Date Time Temp Pulse Resp B/P (MAP) Pulse Ox O2 Delivery O2 Flow Rate FiO2 10/16/16 11:14 100 35 10/16/16 10:00 78 10/16/16 08:00 35 10/16/16 08:00 98.8 77 13 141/69 (93) 100 10/16/16 08:00 77 10/16/16 07:23 1 35 10/16/16 07:00 100 Mechanical Ventilator 35 10/16/16 06:00 77 10/16/16 04:18 100 35 10/16/16 04:00 97.8 76 14 136/62 (86) 100 10/16/16 04:00 35 10/16/16 04:00 76 10/16/16 02:00 76 10/16/16 00:00 76 10/16/16 00:00 35 10/16/16 00:00 98.0 76 16 134/72 (92) 100 10/15/16 22:00 77 10/15/16 20:26 100 35 10/15/16 20:00 98.2 79 14 146/65 (92) 100 10/15/16 20:00 79 10/15/16 20:00 35 10/15/16 19:00 100 Mechanical Ventilator 35 10/15/16 18:00 82 10/15/16 16:00 81 10/15/16 16:00 98.0 81 14 154/71 (98) 100 10/15/16 16:00 35 10/15/16 15:49 100 35 10/15/16 14:00 82 10/15/16 12:00 80 10/15/16 12:00 98.1 80 14 154/71 (98) 100 10/15/16 12:00 40 -: 10/16/16 0414 10/16/16 0414 Physical Exam Eyes Eye Exam: Pupils Equal Neck Neck Exam: Neck Supple Pulmonary Resp Exam: Breath Sounds Equal, No Distress, Rhonchi, Decreased Bases Cardiology CV Exam: Regular, Normal Sinus Rhythm Gastrointestinal/Abdomen GI Exam: Soft, Non-Tender, Distended GI Remarks obese. Extremeties Extremities Exam: Pitting Edema, Dependent Edema Neurologic Neuro Exam: Obtunded Assessment/Plan Problem List: (1) Acute renal failure ICD Codes: N17.9 - Acute kidney failure, unspecified Status: Acute Plan: She apparently has a baseline creatinine of 1mg/dl. FREDI from [facility], secondary to dehydration, also the possibility of vancomycin induced nephrotoxicity; may also be due to sepsis Oliguric. HD initiated on 10/13/16, Next dialysis tomorrow. Avoid nephrotoxic agents. (2) Sepsis ICD Codes: A41.9 - Sepsis, unspecified organism Plan: Notes were reviewed. She has Pseudomonas in the blood, and gram stain of the wound. Also has Ximena in the urine. Currently on Cefepime, Daptomycin, Flagyl and Micafungin. She is thought to have left lower extremity osteomyelitis. (3) Hyperkalemia ICD Codes: E87.5 - Hyperkalemia Status: Acute Plan: resolved, now with hypokalemia. (4) Metabolic acidosis ICD Codes: E87.2 - Acidosis Status: Acute Plan: improved. Problem Qualifiers (1) Acute renal failure: Qualified Codes: N17.9 - Acute kidney failure, unspecified Francisco Javier Quiros MD Oct 16, 2016 11:42
[2016-10-16] MEDS: CEFEPIME INJ 1,000 MG in SODIUM CHLORIDE 0.9% INJ 100 ML IV SCH (15:00)
[2016-10-16] MEDS: hydrALAZINE HCL 20 MG/ML VIAL IV PUSH PRN (16:05)
[2016-10-16] MEDS: MICAFUNGIN INJ 150 MG in SODIUM CHLORIDE 0.9% INJ 100 ML IV SCH (16:12)
[2016-10-16] MEDS: diphenhydrAMINE HCL 25 MG CAP PO PRN (16:12)
--- NOTE | 2016-10-16 17:38 | HHI.IDPN ---
Subjective Subjective Remarks is a 51 y/o F from a SNF who was being treated for chronic LLE cellulitis, non healing ulcer. Patient's past medical history significant for diabetes type 2 uncontrolled, diabetic nephropathy with baseline creatinine of 1.2, legal blindness likely secondary to diabetic retinopathy. She has a history of recurrent cellulitis and a nonhealing ulcer and has been treated for osteomyelitis in the past. Patient has been treated with IV antibiotics using PICC line in the past. Per discussion with her PCP at [facility] patient has received IV antibiotics multiple times in the past. She was being followed by wound care at [facility] and decision was made to start IV antibiotics Vanco IV and possibly Zosyn IV using a PICC line. Unknown duration of PICC line at this point. Patient presents with worsening creatinine found at her SNF and altered mental status. On arrival to the ED, she had a Cr 7.7, has a chronic indwelling black catheter and has not had any urine per report in the last few days. Renal ultrasound was negative for hydronephrosis. She also has a excoriating rash over her trunk and arms. She was initially admitted to the floor, but rapid response called for hypotension and altered mental status. She was severely acidotic with a pH of 7.1, base deficit 10, pco2 48. At the time of my evaluation patient is currently in intensive care unit and has been intubated for altered mental status. Patient is also undergoing placement of PICC line. She has no urine output and has a Black bag in place. This Black was present on admission. She also had diarrhea on admission. Her risk factors for C. difficile her prior antibiotic usage and penitentiary placement. She is currently sedated and not on any vasopressors. Infectious disease is consulted for evaluation and management of severe sepsis with multiorgan dysfunction syndrome, possible line related infection, acute osteomyelitis. Overnight events and notes reviewed D/W RN Temps ok BP ok, not on pressors Extubated earlier today. UO very low BC with GNR and Staph Wound C/S PSAE UC with yeast [place] with no vegetation per my discussion with and . scratching skin from prior vanco infusion as outpt. Antibiotics Cubicin Flagyl Cefepime Micafungin Lines LIJ vascath LSC TLC Past Medical History DM Legally blind COPD HTN anemia sleep apnea CVA neuropathy Afib Allergies: Coded Allergies: morphine (Unverified Allergy, Unknown, 09/26/16) vancomycin (Verified Adverse Reaction, Unknown, Rash, 10/12/16) Objective . Vital Signs Date Time Temp Pulse Resp B/P (MAP) Pulse Ox O2 Delivery O2 Flow Rate FiO2 10/16/16 16:00 98.4 85 18 166/75 (105) 100 10/16/16 16:00 82 10/16/16 14:10 100 Nasal Cannula 3 10/16/16 14:10 100 Nasal Cannula 3.00 10/16/16 14:10 100 Nasal Cannula 3.00 10/16/16 14:00 82 10/16/16 12:00 77 10/16/16 12:00 35 10/16/16 12:00 98.0 77 12 159/68 (98) 100 10/16/16 11:14 100 35 10/16/16 10:00 78 10/16/16 08:00 35 10/16/16 08:00 98.8 77 13 141/69 (93) 100 10/16/16 08:00 77 10/16/16 07:23 1 35 10/16/16 07:00 100 Mechanical Ventilator 35 10/16/16 06:00 77 10/16/16 04:18 100 35 10/16/16 04:00 97.8 76 14 136/62 (86) 100 10/16/16 04:00 35 10/16/16 04:00 76 10/16/16 02:00 76 10/16/16 00:00 76 10/16/16 00:00 35 10/16/16 00:00 98.0 76 16 134/72 (92) 100 10/15/16 22:00 77 10/15/16 20:26 100 35 10/15/16 20:00 98.2 79 14 146/65 (92) 100 10/15/16 20:00 79 10/15/16 20:00 35 10/15/16 19:00 100 Mechanical Ventilator 35 10/15/16 18:00 82 10/16/16 10/16/16 10/17/16 15:00 23:00 07:00 Output Total 0 ml Balance 0 ml Tube Feeding Residual Discard 0 ml . Laboratory Tests Test 10/15/16 03:48 10/16/16 04:14 White Blood Count 7.8 TH/MM3 8.7 TH/MM3 Red Blood Count 2.39 MIL/MM3 2.42 MIL/MM3 Hemoglobin 7.4 GM/DL 7.5 GM/DL Hematocrit 22.9 % 23.3 % Mean Corpuscular Volume 95.8 FL 96.6 FL Mean Corpuscular Hemoglobin 31.0 PG 31.1 PG Mean Corpuscular Hemoglobin Concent 32.3 % 32.2 % Red Cell Distribution Width 19.2 % 19.3 % Platelet Count 290 TH/MM3 277 TH/MM3 Mean Platelet Volume 7.2 FL 6.9 FL Laboratory Tests Test 10/15/16 03:48 10/16/16 04:14 Blood Urea Nitrogen 54 MG/DL 59 MG/DL Creatinine 4.94 MG/DL 4.99 MG/DL Random Glucose 134 MG/DL 160 MG/DL Total Protein 7.2 GM/DL 6.8 GM/DL Calcium Level 7.1 MG/DL 7.4 MG/DL Sodium Level 143 MEQ/L 140 MEQ/L Potassium Level 3.5 MEQ/L 3.4 MEQ/L Chloride Level 106 MEQ/L 106 MEQ/L Carbon Dioxide Level 25.5 MEQ/L 25.3 MEQ/L Anion Gap 12 MEQ/L 9 MEQ/L Estimat Glomerular Filtration Rate 9 ML/MIN 9 ML/MIN Protein Corrected Calcium 7.1 MG/DL 7.6 MG/DL Imaging Upper Extremity Ultrasound 10/13/16 Signed Impressions: Service Date/Time: Thursday, October 13, 2016 09:17 - CONCLUSION: 1. No DVT. 2. Subcutaneous edema observed. Wilner Potter Jr., MD Lower Extremity Ultrasound 10/13/16 Signed Impressions: Service Date/Time: Thursday, October 13, 2016 08:57 - CONCLUSION: 1. Study has some limitations as detailed above. No DVT observed. Wilner Potter Jr., MD Lower Extremity CT 10/13/16 Signed Impressions: Service Date/Time: Thursday, October 13, 2016 21:35 - CONCLUSION: Ulcer at the region of the base of the fifth metatarsal. There appears to be chronic and acute changes in this region. The acute changes are worrisome for osteomyelitis at the base of the fifth metatarsal. Ricco Fuentes MD Chest X-Ray 10/13/16 Signed Impressions: Service Date/Time: Thursday, October 13, 2016 15:05 - CONCLUSION: Support apparatus in good position without pneumothorax. Roman Montiel MD FACR Chest CT 10/13/16 Signed Impressions: Service Date/Time: Thursday, October 13, 2016 21:27 - CONCLUSION: 1. Patchy areas of consolidation seen bilaterally being worse on the right. These could represent areas of inflammatory/infectious disease. Focal round lesions to suggest septic emboli are not clearly identified. 2. Edema seen at the right superficial chest and abdomen regions. The cause of for this asymmetric edema is not known. 3. Mild ascites. Ricco Fuentes MD Abdomen CT 10/13/16 Signed Impressions: Service Date/Time: Thursday, October 13, 2016 21:27 - CONCLUSION: 1. Mild ascites seen around the liver. 2. Superficial edema seen bilaterally in the subcutaneous tissues. This is asymmetric and being much more prominent on the right. 3. Small area of increased density seen independently in the gallbladder representing either small gallstones or milk of calcium. Ricco Fuentes MD Renal Ultrasound 10/12/16 Signed Impressions: Service Date/Time: September 20:54 - CONCLUSION: Normal appearance of the kidneys. Ricco Feuntes MD Physical Exam GENERAL:Morbidly obese dark skinned female, in no apparent distress. Eyes open, on the vent SKIN: Diffuse rash in her whole trunk, UE and both thighs - some looks chronic, but she has the erythematous rash that has some brown centers, some are blanching. Some now looks papulovesicular in axilla areas, thigh/groin HEAD: Atraumatic. Normocephalic. No temporal or scalp tenderness. EYES: Pupils equal round and reactive. No scleral icterus. No injection or drainage. ENT: Intubated. NECK: Large neck. Has bleeding at vascath site CARDIOVASCULAR: Distant HS. No murmur audible. RESPIRATORY: Clear to auscultation. Breath sounds equal bilaterally. No wheezes , rales, or rhonchi. GASTROINTESTINAL: Abdomen soft, obese, no reaction to palpation, no guarding, pannus with erythema and moisture. MUSCULOSKELETAL: Left LE with ulcer noted with packing with foul smelling discharge. 1.5 cm opening, deep approx 1.5 cm ? bone probed. Chronic venous stasis changes. NEUROLOGICAL: Awake Sacrum: 2 non stageable ulcers. Psych: could not be assessed. Assessment & Plan Remarks Assessment and Plan Severe Sepsis present on admission PSAE and CGNS bacteremia sepsis, ?PICC, ?L foot Probable PICC line site infection Pneumonia: septic emboli or aspiration PNA. Acute renal failure: Vanco induced, prerenal Rash: Vanco IV, fungemia related diffuse rash Acute metabolic encephalopathy: sepsis, metabolic. DM2 with Nephropathy, legal blondness (? DM retinopathy). Acute Osteomyelitis, non healing ulcer likely infected as purulence noted. Diarrhea present on admission UTI Recs: Continue Cefepime IV (on days of HD to be given after HD) Continue Dapto IV(on days of HD to be given after HD) DC Micafungin IV DC Flagyl Please reconsult podiatry pt now stable. MRI with ? osteo 5th digit of right foot. Follow C/S Monitor progress D/W RN and pt sisters in the room as well as patient. Lilibeth Johnson MD Oct 16, 2016 17:38
[2016-10-17] VITALS (14 sets, daily range): BP systolic 143–169; BP diastolic 67–77; PULSE 75–86; RESP 14–22; TEMP 97.9–98.7; O2SAT 100
[2016-10-17] MEDS: INSULIN NovoLIN REGULAR SUPPLEMENTAL SCALE SQ SCH ×4 (01:06→18:00)
[2016-10-17] MEDS: RESP: IPRATROPIUM 0.5 MG/2.5 ML NEB NEB SCH ×4 (02:40→21:05)
--- NOTE | 2016-10-17 06:10 | RADRPT ---
EXAM DATE/TIME: 10/17/2016 04:24 [facility] COMPARISON: CHEST SINGLE AP, October 16, 2016, 9:26. INDICATIONS : Short of breath. MEDICAL HISTORY : Diabetes mellitus type 2. Hypertension. SURGICAL HISTORY : None. ENCOUNTER: Subsequent ACUITY: 4 - 6 days PAIN SCORE: 0/10 LOCATION: Bilateral chest FINDINGS: Patient has been extubated and NGT removed. There is a stable left subclavian central line and left I J temporary dialysis catheter in place. Improved fluid in the minor fissure. Improved aeration in the lower lung zones. No new focal pleural or parenchymal opacities. Cardiomediastinal contours are stab le. Remainder of the exam is unchanged. CONCLUSION: 1. Status post extubation and removal of NGT. 2. Improved aeration and trace fluid in the minor fissure. Jose Alberto Parker MD on October 17, 2016 at 6:06 Board Certified Radiologist. This report was verified electronically.
[2016-10-17] MEDS: HEPARIN SODIUM - SQ 10,000 UNITS/ML VIAL SQ SCH ×3 (06:37→22:36)
[2016-10-17 07:43] LABS: MEAN CELL VOLUME 96.1 FL (80.0-100.0); MEAN CORPUSCULAR HEMOGLOBIN 31.6 PG (27.0-34.0); MEAN CORPUSCULAR HGB CONC 32.8 % (32.0-36.0); PLATELET COUNT 261 TH/MM3 (150-450); RED BLOOD COUNT 2.29 MIL/MM3 (4.00-5.30); RED CELL DISTRIBUTION WIDTH 18.8 % (11.6-17.2); REVIEW FLAG FINAL; WHITE BLOOD COUNT 11.7 TH/MM3 (4.0-11.0)
[2016-10-17] MEDS: LACTOBACILLUS ACIDOPHILUS TAB PO SCH ×3 (08:00→17:00)
[2016-10-17 08:09] LABS: BICARBONATE 22.7 MEQ/L (21.0-32.0); POTASSIUM 3.8 MEQ/L (3.5-5.1)
[2016-10-17] MEDS: SODIUM CHLORIDE 0.9% FLUSH 10 ML FLUSH IV FLUSH SCH ×2 (08:11→21:00)
[2016-10-17] MEDS: diphenhydrAMINE HCL 25 MG CAP PO SCH (08:55)
[2016-10-17] MEDS: FAMOTIDINE 40 MG/5 ML LIQ 50 ML BTL NG SCH ×2 (08:56→21:00)
--- NOTE | 2016-10-17 09:42 | HHI.NPPN ---
Subjective History of Present Illness 51 y/o female who [facility] status. She has a hx of DM II, CVA, legally blind,neuropathy, COPD, HTN, anemia and sleep apnea. She had a PICC line and was being treated with IV Zosyn and vancomycin for several months for suspected osteomyelitis. Interval History she has been extubated. She was unaware of the fact that she needed dialysis emergently on Sunday. Oliguric. Dialysis is scheduled for today. Review of Systems General Constitutional: Fatigue Objective Data Data Vital Signs Date Time Temp Pulse Resp B/P (MAP) Pulse Ox O2 Delivery O2 Flow Rate FiO2 10/17/16 08:00 78 10/17/16 08:00 98.7 78 14 169/77 (107) 100 10/17/16 07:58 100 Nasal Cannula 2.00 10/17/16 07:00 100 Nasal Cannula 3.00 10/17/16 06:00 80 10/17/16 04:00 83 10/17/16 04:00 98.2 83 21 155/69 (97) 100 10/17/16 02:00 85 10/17/16 00:00 98.0 86 16 147/67 (93) 100 10/17/16 00:00 86 10/16/16 22:00 87 10/16/16 20:00 87 10/16/16 20:00 98.0 87 18 153/70 (97) 100 10/16/16 19:03 100 Nasal Cannula 2.00 10/16/16 19:00 100 Nasal Cannula 3.00 10/16/16 18:00 82 10/16/16 16:00 98.4 85 18 166/75 (105) 100 10/16/16 16:00 82 10/16/16 14:10 100 Nasal Cannula 3 10/16/16 14:10 100 Nasal Cannula 3.00 10/16/16 14:10 100 Nasal Cannula 3.00 10/16/16 14:00 82 10/16/16 12:00 77 10/16/16 12:00 35 10/16/16 12:00 98.0 77 12 159/68 (98) 100 10/16/16 11:14 100 35 10/16/16 10:00 78 -: 10/17/16 0645 10/17/16 0645 Physical Exam Eyes Eye Exam: Pupils Equal Neck Neck Exam: Neck Supple Pulmonary Resp Exam: Breath Sounds Equal, No Distress, Rhonchi, Decreased Bases Cardiology CV Exam: Regular, Normal Sinus Rhythm Gastrointestinal/Abdomen GI Exam: Soft, Non-Tender, Distended GI Remarks obese. Integumentary Skin Remarks skin desquamation. Extremeties Extremities Exam: Pitting Edema, Dependent Edema Neurologic Neuro Exam: Obtunded Assessment/Plan Problem List: (1) Acute renal failure ICD Codes: N17.9 - Acute kidney failure, unspecified Status: Acute Plan: She apparently has a baseline creatinine of 1mg/dl. FREDI from [facility], secondary to dehydration, also the possibility of vancomycin induced nephrotoxicity; may also be due to sepsis Oliguric. HD initiated on 10/13/16, Dialysis again today. Monitor for signs of recovery: urine output has improved. Avoid nephrotoxic agents. (2) Sepsis ICD Codes: A41.9 - Sepsis, unspecified organism Plan: Notes were reviewed. She has Pseudomonas in the blood, and gram stain of the wound. Also has Ximena in the urine. Currently on Cefepime, Daptomycin, Flagyl and Micafungin. She is thought to have left lower extremity osteomyelitis. (3) Hyperkalemia ICD Codes: E87.5 - Hyperkalemia Status: Acute Plan: Resolved. (4) Metabolic acidosis ICD Codes: E87.2 - Acidosis Status: Acute Plan: improved. Problem Qualifiers (1) Acute renal failure: Qualified Codes: N17.9 - Acute kidney failure, unspecified Francisco Javier Quiros MD Oct 17, 2016 09:42
--- NOTE | 2016-10-17 12:33 | HHI.IDPN ---
Subjective Subjective Remarks is a 51 y/o F from a SNF who was being treated for chronic LLE cellulitis, non healing ulcer. Patient's past medical history significant for diabetes type 2 uncontrolled, diabetic nephropathy with baseline creatinine of 1.2, legal blindness likely secondary to diabetic retinopathy. She has a history of recurrent cellulitis and a nonhealing ulcer and has been treated for osteomyelitis in the past. Patient has been treated with IV antibiotics using PICC line in the past. Per discussion with her PCP at [facility] patient has received IV antibiotics multiple times in the past. [facility] and decision was made to start IV antibiotics Vanco IV and possibly Zosyn IV using a PICC line. Unknown duration of PICC line at this point. Patient presents with worsening creatinine found at her SNF and altered mental status. On arrival to the ED, she had a Cr 7.7, has a chronic indwelling black catheter and has not had any urine per report in the last few days. Renal ultrasound was negative for hydronephrosis. She also has a excoriating rash over her trunk and arms. She was initially admitted to the floor, but rapid response called for hypotension and altered mental status. She was severely acidotic with a pH of 7.1, base deficit 10, pco2 48. At the time of my evaluation patient is currently in intensive care unit and has been intubated for altered mental status. Patient is also undergoing placement of PICC line. She has no urine output and has a Blcak bag in place. This Black was present on admission. She also had diarrhea on admission. Her risk factors for C. difficile her prior antibiotic usage and mcc placement. She is currently sedated and not on any vasopressors. Infectious disease is consulted for evaluation and management of severe sepsis with multiorgan dysfunction syndrome, possible line related infection, acute osteomyelitis. Overnight events and notes reviewed D/W RN Temps ok BP ok, not on pressors Extubated earlier today. UO very low BC with GNR and Staph Wound C/S PSAE UC with yeast [place] with no vegetation per my discussion with and . scratching skin from prior vanco infusion as outpt. Antibiotics Cubicin Flagyl Cefepime Micafungin Lines LIJ vascath LSC TLC Past Medical History DM Legally blind COPD HTN anemia sleep apnea CVA neuropathy Afib Allergies: Coded Allergies: morphine (Unverified Allergy, Unknown, 09/26/16) vancomycin (Verified Adverse Reaction, Severe, Rash, 10/17/16) Objective . Vital Signs Date Time Temp Pulse Resp B/P (MAP) Pulse Ox O2 Delivery O2 Flow Rate FiO2 10/17/16 12:00 97.9 75 22 143/73 (96) 100 10/17/16 12:00 75 10/17/16 10:00 76 10/17/16 08:00 78 10/17/16 08:00 98.7 78 14 169/77 (107) 100 10/17/16 07:58 100 Nasal Cannula 2.00 10/17/16 07:00 100 Nasal Cannula 3.00 10/17/16 06:00 80 10/17/16 04:00 83 10/17/16 04:00 98.2 83 21 155/69 (97) 100 10/17/16 02:00 85 10/17/16 00:00 98.0 86 16 147/67 (93) 100 10/17/16 00:00 86 10/16/16 22:00 87 10/16/16 20:00 87 10/16/16 20:00 98.0 87 18 153/70 (97) 100 10/16/16 19:03 100 Nasal Cannula 2.00 10/16/16 19:00 100 Nasal Cannula 3.00 10/16/16 18:00 82 10/16/16 16:00 98.4 85 18 166/75 (105) 100 10/16/16 16:00 82 10/16/16 14:10 100 Nasal Cannula 3 10/16/16 14:10 100 Nasal Cannula 3.00 10/16/16 14:10 100 Nasal Cannula 3.00 10/16/16 14:00 82 . Laboratory Tests Test 10/16/16 04:14 10/17/16 06:45 White Blood Count 8.7 TH/MM3 11.7 TH/MM3 Red Blood Count 2.42 MIL/MM3 2.29 MIL/MM3 Hemoglobin 7.5 GM/DL 7.2 GM/DL Hematocrit 23.3 % 22.0 % Mean Corpuscular Volume 96.6 FL 96.1 FL Mean Corpuscular Hemoglobin 31.1 PG 31.6 PG Mean Corpuscular Hemoglobin Concent 32.2 % 32.8 % Red Cell Distribution Width 19.3 % 18.8 % Platelet Count 277 TH/MM3 261 TH/MM3 Mean Platelet Volume 6.9 FL 7.4 FL Laboratory Tests Test 10/16/16 04:14 10/17/16 06:45 Blood Urea Nitrogen 59 MG/DL 66 MG/DL Creatinine 4.99 MG/DL 5.34 MG/DL Random Glucose 160 MG/DL 126 MG/DL Total Protein 6.8 GM/DL Calcium Level 7.4 MG/DL 7.9 MG/DL Sodium Level 140 MEQ/L 141 MEQ/L Potassium Level 3.4 MEQ/L 3.8 MEQ/L Chloride Level 106 MEQ/L 107 MEQ/L Carbon Dioxide Level 25.3 MEQ/L 22.7 MEQ/L Anion Gap 9 MEQ/L 11 MEQ/L Estimat Glomerular Filtration Rate 9 ML/MIN 9 ML/MIN Protein Corrected Calcium 7.6 MG/DL Imaging Upper Extremity Ultrasound 10/13/16 0000 Signed Impressions: Service Date/Time: Thursday, October 13, 2016 09:17 - CONCLUSION: 1. No DVT. 2. Subcutaneous edema observed. Wilner Potter Jr., MD Lower Extremity Ultrasound 10/13/16 0000 Signed Impressions: Service Date/Time: Thursday, October 13, 2016 08:57 - CONCLUSION: 1. Study has some limitations as detailed above. No DVT observed. Wilner Potter Jr., MD Lower Extremity CT 10/13/16 0000 Signed Impressions: Service Date/Time: Thursday, October 13, 2016 21:35 - CONCLUSION: Ulcer at the region of the base of the fifth metatarsal. There appears to be chronic and acute changes in this region. The acute changes are worrisome for osteomyelitis at the base of the fifth metatarsal. Ricco Fuentes MD Chest X-Ray 10/13/16 0000 Signed Impressions: Service Date/Time: Thursday, October 13, 2016 15:05 - CONCLUSION: Support apparatus in good position without pneumothorax. Roman Montiel MD FACR Chest CT 10/13/16 0000 Signed Impressions: Service Date/Time: Thursday, October 13, 2016 21:27 - CONCLUSION: 1. Patchy areas of consolidation seen bilaterally being worse on the right. These could represent areas of inflammatory/infectious disease. Focal round lesions to suggest septic emboli are not clearly identified. 2. Edema seen at the right superficial chest and abdomen regions. The cause of for this asymmetric edema is not known. 3. Mild ascites. Ricco Fuentes MD Abdomen CT 10/13/16 0000 Signed Impressions: Service Date/Time: Thursday, October 13, 2016 21:27 - CONCLUSION: 1. Mild ascites seen around the liver. 2. Superficial edema seen bilaterally in the subcutaneous tissues. This is asymmetric and being much more prominent on the right. 3. Small area of increased density seen independently in the gallbladder representing either small gallstones or milk of calcium. Ricco Fuentes MD Renal Ultrasound 10/12/16 0000 Signed Impressions: Service Date/Time: September 20:54 - CONCLUSION: Normal appearance of the kidneys. Ricco Fuentes MD Physical Exam GENERAL:Morbidly obese dark skinned female, in no apparent distress. Eyes open, on the vent SKIN: Diffuse rash in her whole trunk UE and thighs and upper chest wall. Now with skin peeling noted. HEAD: Atraumatic. Normocephalic. No temporal or scalp tenderness. EYES: Pupils equal round and reactive. No scleral icterus. No injection or drainage. ENT: Intubated. NECK: Large neck. Has bleeding at vascath site CARDIOVASCULAR: Distant HS. No murmur audible. RESPIRATORY: Clear to auscultation. Breath sounds equal bilaterally. No wheezes , rales, or rhonchi. GASTROINTESTINAL: Abdomen soft, obese, no reaction to palpation, no guarding, pannus with erythema and moisture. MUSCULOSKELETAL: Left LE with ulcer noted with packing with foul smelling discharge. 1.5 cm opening, deep approx 1.5 cm ? bone probed. Chronic venous stasis changes. NEUROLOGICAL: Awake Sacrum: 2 non stageable ulcers. Psych: could not be assessed. Assessment & Plan Remarks Assessment and Plan Severe Sepsis present on admission PSAE and CGNS bacteremia sepsis, ?PICC, ?L foot Probable PICC line site infection Pneumonia: septic emboli or aspiration PNA. Acute renal failure: Vanco induced, prerenal Rash: Vanco IV, fungemia related diffuse rash Acute metabolic encephalopathy: sepsis, metabolic. DM2 with Nephropathy, legal blondness (? DM retinopathy). Acute Osteomyelitis, non healing ulcer likely infected as purulence noted. Diarrhea present on admission UTI Recs: Continue Cefepime IV (on days of HD to be given after HD) Continue Dapto IV (on days of HD to be given after HD) Please reconsult podiatry pt now stable. MRI with ? osteo 5th digit of right foot. Follow C/S Monitor progress D/W RN and pt sisters in the room as well as patient. D/w Podiatry covering for . Patient is high risk for surgery. He recommends medical management. Lilibeth Johnson MD Oct 17, 2016 12:33
[2016-10-17] MEDS: GENTAMICIN SULFATE (DIALYSIS USE ONLY) 20 MG/2 ML VIAL IV PRN (17:48)
[2016-10-17] MEDS: DAPTOmycin INJ 1,000 MG in SODIUM CHLORIDE 0.9% INJ 100 ML IV SCH (18:28)
[2016-10-17] MEDS: diphenhydrAMINE HCL 25 MG CAP PO PRN (18:29)
[2016-10-17] MEDS: CEFEPIME INJ 1,000 MG in SODIUM CHLORIDE 0.9% INJ 100 ML IV SCH (18:29)
--- NOTE | 2016-10-17 19:12 | PD.POD ---
Subjective Podiatric Problems Left 5th metatarsal OM. Pain scale used: 0-10 numeric scale Pain score: 1 Past Med/Surg/Social History Past Medical History Endocrine: REPORTS HX OF: Diabetes mellitus Cardiovascular: REPORTS HX OF: Hyperlipidemia, Hypertension Neurologic: REPORTS HX OF: Stroke Past Surgical History Musculoskeletal: DENIES HX OF: Joint replacement, Other musculoskeletal srg Social History Smoking Status: Never Smoker Objective Vital Signs Vital Signs Date Time Temp Pulse Resp B/P (MAP) Pulse Ox O2 Delivery O2 Flow Rate FiO2 10/17/16 18:00 79 10/17/16 16:00 77 10/17/16 16:00 98.7 77 14 154/70 (98) 100 10/17/16 14:00 77 10/17/16 12:00 97.9 75 22 143/73 (96) 100 10/17/16 12:00 75 10/17/16 10:00 76 10/17/16 08:00 78 10/17/16 08:00 98.7 78 14 169/77 (107) 100 10/17/16 07:58 100 Nasal Cannula 2.00 10/17/16 07:00 100 Nasal Cannula 3.00 10/17/16 06:00 80 10/17/16 04:00 83 10/17/16 04:00 98.2 83 21 155/69 (97) 100 10/17/16 02:00 85 10/17/16 00:00 98.0 86 16 147/67 (93) 100 10/17/16 00:00 86 10/16/16 22:00 87 10/16/16 20:00 87 10/16/16 20:00 98.0 87 18 153/70 (97) 100 Coded Allergies: morphine (Unverified Allergy, Unknown, 09/26/16) vancomycin (Verified Adverse Reaction, Severe, Rash, 10/17/16) Other Results Last Impressions Chest X-Ray 10/17/16 0500 Signed Impressions: Service Date/Time: Monday, October 17, 2016 04:24 - CONCLUSION: 1. Status post extubation and removal of NGT. 2. Improved aeration and trace fluid in the minor fissure. Jose Alberto Parker MD Ankle X-Ray 10/14/16 0000 Signed Impressions: Service Date/Time: Friday, October 14, 2016 17:01 - CONCLUSION: Marked soft tissue swelling with subcutaneous calcifications. Negative for fracture. Roman Montiel MD FACR Upper Extremity Ultrasound 10/13/16 0000 Signed Impressions: Service Date/Time: Thursday, October 13, 2016 09:17 - CONCLUSION: 1. No DVT. 2. Subcutaneous edema observed. Wilner Potter Jr., MD Lower Extremity Ultrasound 10/13/16 0000 Signed Impressions: Service Date/Time: Thursday, October 13, 2016 08:57 - CONCLUSION: 1. Study has some limitations as detailed above. No DVT observed. Wilner Potter Jr., MD Lower Extremity CT 10/13/16 Signed Impressions: Service Date/Time: Thursday, October 13, 2016 21:35 - CONCLUSION: Ulcer at the region of the base of the fifth metatarsal. There appears to be chronic and acute changes in this region. The acute changes are worrisome for osteomyelitis at the base of the fifth metatarsal. Ricco Fuentes MD Chest CT 10/13/16 Signed Impressions: Service Date/Time: Thursday, October 13, 2016 21:27 - CONCLUSION: 1. Patchy areas of consolidation seen bilaterally being worse on the right. These could represent areas of inflammatory/infectious disease. Focal round lesions to suggest septic emboli are not clearly identified. 2. Edema seen at the right superficial chest and abdomen regions. The cause of for this asymmetric edema is not known. 3. Mild ascites. Ricco Fuentes MD Abdomen CT 10/13/16 Signed Impressions: Service Date/Time: Thursday, October 13, 2016 21:27 - CONCLUSION: 1. Mild ascites seen around the liver. 2. Superficial edema seen bilaterally in the subcutaneous tissues. This is asymmetric and being much more prominent on the right. 3. Small area of increased density seen independently in the gallbladder representing either small gallstones or milk of calcium. Ricco Fuentes MD Renal Ultrasound 10/12/16 0000 Signed Impressions: Service Date/Time: September 20:54 - CONCLUSION: Normal appearance of the kidneys. Ricco Fuentes MD Laboratory Tests Test 10/12/16 18:15 10/13/16 04:23 10/13/16 13:24 10/13/16 14:49 Blood Urea Nitrogen 88 MG/DL Creatinine 7.53 MG/DL Random Glucose 130 MG/DL Total Protein 7.8 GM/DL Albumin 2.4 GM/DL Calcium Level 7.6 MG/DL Alkaline Phosphatase 404 U/L Aspartate Amino Transf (AST/SGOT) 14 U/L Alanine Aminotransferase (ALT/SGPT) 19 U/L Total Bilirubin 0.6 MG/DL Sodium Level 138 MEQ/L Potassium Level 5.8 MEQ/L Chloride Level 111 MEQ/L Carbon Dioxide Level 15.8 MEQ/L Random Vancomycin Level 21.6 COMMENT Blood Gas Liter Flow 3 L/M Neutrophils (%) (Auto) 86.2 % Lymphocytes (%) (Auto) 7.2 % Monocytes (%) (Auto) 5.3 % Eosinophils (%) (Auto) 1.1 % Basophils (%) (Auto) 0.2 % Neutrophils # (Auto) 7.7 TH/MM3 Lymphocytes # (Auto) 0.6 TH/MM3 Monocytes # (Auto) 0.5 TH/MM3 Eosinophils # (Auto) 0.1 TH/MM3 Basophils # (Auto) 0.0 TH/MM3 CBC Comment AUTO DIFF Differential Total Cells Counted 100 Neutrophils % (Manual) 76 % Band Neutrophils % 8 % Lymphocytes % 9 % Monocytes % 5 % Neutrophils # (Manual) 7.7 TH/MM3 Metamyelocytes 2 % Nucleated Red Blood Cells 2 /100 WBC Differential Comment FINAL DIFF MANUAL Platelet Estimate NORMAL Platelet Morphology Comment NORMAL Lactic Acid Level 0.8 mmol/L B-Hydroxybutyrate 1.10 MMOL/L Blood Gas Puncture Site ART LINE Blood Gas Patient Temperature 98.6 Blood Gas HCO3 16 mmol/L Blood Gas Base Excess -9.1 mmol/L Blood Gas Oxygen Saturation 97 % Arterial Blood pH 7.30 Arterial Blood Partial Pressure CO2 34 mmHg Arterial Blood Partial Pressure O2 146 mmHg Arterial Blood Oxygen Content 10.5 Vol % Arterial Blood Carboxyhemoglobin 1.7 % Arterial Blood Methemoglobin 1.0 % Blood Gas Hemoglobin 7.5 G/DL Oxygen Delivery Device VENTILATOR Blood Gas Ventilator Setting Blood Gas Inspired Oxygen 50 % Test 10/13/16 15:30 10/13/16 19:39 10/16/16 04:14 10/17/16 06:45 Urine Color RED Urine Turbidity CLOUDY Urine pH 6.0 Urine Specific [place] 1.023 Urine Protein 300 mg/dL Urine Glucose (UA) NEG mg/dL Urine Ketones NEG mg/dL Urine Occult Blood MOD Urine Nitrite NEG Urine Bilirubin NEG Urine Urobilinogen LESS THAN 2.0 MG/DL Urine Leukocyte Esterase LARGE Urine RBC 178 /hpf Urine WBC /hpf Urine WBC Clumps OCC Urine Transitional Epithelial Cells 3 /hpf Urine Amorphous Sediment RARE Urine Bacteria MANY /hpf Urine Yeast with Hyphae MANY Urine Yeast (Budding) FEW Microscopic Urinalysis Comment CATH-CULTURE IND Urine Eosinophils NONE SEEN /HPF Urine Random Creatinine 110.5 MG/DL Urine Random Sodium 87 MEQ/L C-Reactive Protein 8.40 MG/DL Protein Corrected Calcium 7.6 MG/DL Blood Urea Nitrogen 59 MG/DL 66 MG/DL Creatinine 4.99 MG/DL 5.34 MG/DL Random Glucose 160 MG/DL 126 MG/DL Total Protein 6.8 GM/DL Calcium Level 7.4 MG/DL 7.9 MG/DL Sodium Level 140 MEQ/L 141 MEQ/L Potassium Level 3.4 MEQ/L 3.8 MEQ/L Chloride Level 106 MEQ/L 107 MEQ/L Carbon Dioxide Level 25.3 MEQ/L 22.7 MEQ/L White Blood Count 11.7 TH/MM3 Red Blood Count 2.29 MIL/MM3 Hemoglobin 7.2 GM/DL Hematocrit 22.0 % Mean Corpuscular Volume 96.1 FL Mean Corpuscular Hemoglobin 31.6 PG Mean Corpuscular Hemoglobin Concent 32.8 % Red Cell Distribution Width 18.8 % Platelet Count 261 TH/MM3 Mean Platelet Volume 7.4 FL Anion Gap 11 MEQ/L Estimat Glomerular Filtration Rate 9 ML/MIN Exam-Podiatry Dermatological Exam Ulcers: Location/Measurements LLE Left 5th metatarsal with ulcer probing. No purulence noted. No warmth. No streaking. No POP. Warm to warm proximal to distal. Assessment & Plan Diagnosis: (1) Osteomyelitis of ankle or foot, left, acute ICD Codes: M86.172 - Other acute osteomyelitis, left ankle and foot (2) Diabetic neuropathy ICD Codes: E11.40 - Diabetic neuropathy Status: Chronic A/P Discussed with Dr Johnson on 10/17/16. Recommended abx treatment as the patient is high risk. Continue with daily dressing changes and packing with Betadine soaked 1/4 in iodoform. Will continue f/u while inhouse. Cyndy Morrissey DPM Oct 17, 2016 19:12
--- NOTE | 2016-10-17 19:58 | HHI.PR ---
Subjective Remarks Patient seen today around 1 PM. Says she is comfortable. Her rash is improving. Denies any chest pain or shortness of breath. Objective Vital Signs Date Time Temp Pulse Resp B/P (MAP) Pulse Ox O2 Delivery O2 Flow Rate FiO2 10/17/16 18:00 79 10/17/16 16:00 77 10/17/16 16:00 98.7 77 14 154/70 (98) 100 10/17/16 14:00 77 10/17/16 12:00 97.9 75 22 143/73 (96) 100 10/17/16 12:00 75 10/17/16 10:00 76 10/17/16 08:00 78 10/17/16 08:00 98.7 78 14 169/77 (107) 100 10/17/16 07:58 100 Nasal Cannula 2.00 10/17/16 07:00 100 Nasal Cannula 3.00 10/17/16 06:00 80 10/17/16 04:00 83 10/17/16 04:00 98.2 83 21 155/69 (97) 100 10/17/16 02:00 85 10/17/16 00:00 98.0 86 16 147/67 (93) 100 10/17/16 00:00 86 10/16/16 22:00 87 10/16/16 20:00 87 10/16/16 20:00 98.0 87 18 153/70 (97) 100 I/O 10/16/16 10/16/16 10/16/16 10/17/16 10/17/16 10/17/16 07:00 15:00 23:00 07:00 15:00 23:00 Intake Total 880 ml 676 ml Output Total 125 ml 0 ml 250 ml 175 ml 3650 ml Balance 755 ml 0 ml 426 ml -175 ml -3650 ml Intake IV Total 200 ml 386 ml Tube Feeding 440 ml 290 ml Other 240 ml Output Urine Total 125 ml 250 ml 175 ml 150 ml Tube Feeding Residual Discard 0 ml Hemodialysis 3500 ml # Bowel Movements 1 1 Result Diagram: 10/17/16 0645 10/17/16 0645 Objective Remarks GENERAL: 51-year-old female lying in bed. She is alert. SKIN: Warm and dry. HEAD: Normocephalic. EYES: No scleral icterus. No injection or drainage. NECK: Supple, trachea midline. No JVD. CARDIOVASCULAR: Regular rate and rhythm without murmurs, gallops, or rubs. RESPIRATORY: Breath sounds equal bilaterally. No accessory muscle use. GASTROINTESTINAL: Abdomen soft, non-tender, nondistended. MUSCULOSKELETAL: No cyanosis. 2+ bilateral lower extremity edema. Weeping sinus of left foot. No surrounding erythema. BACK: Nontender without obvious deformity. No CVA tenderness. A/P Assessment and Plan == 10/17/16. //Pseudomonas bacteremia with sepsis. With os myelitis left foot. Discussed with infectious disease. Podiatry feels patient is too high risk for surgery. We'll continue on medical management with IV antibiotics at this time as per infectious disease. -Diabetic diet ordered. //Vancomycin sensitivity rash. Improving. Continue to monitor. //Acute renal failure. Continue hemodialysis as per nephrology. Appreciate assistance. Assessment: 51yF with LLE cellulitis presents now with severe oligoanuric acute kidney injury and associated metabolic encephalopathy, septic shock, gram negative uzma bacteremia, fungal urinary tract infection, osteomyelitis, multi- organ system dysfunction. remains critically ill and off pathway. if we withdrew support, she would . Failing CPAP trials. still volume overloaded. She remains critically ill at this time with multiple organ systems which are currently life-threatening. Plan by systems: Neurologic: //Metabolic Encephalopathy secondary to Uremia and sepsis = Much after hemodialysis. Respiratory: //Obesity Hypoventilation Syndrome //COPD //Sleep Apnea //Acute hypoxic and hypercarbic respiratory failure- persistent, no improvement. //Pulmonary Edema - intubated 10/13 for progressive hypoxia - wean fio2 for goal spo2 > 90% - vent bundle, hob at 30 degrees, nebs = Continue CPAP. Cardiovascular: //Septic Shock- resolving. //Severe Tricuspid Regurgitation - keep central line and art line. - needs continued volume removal via IHD Renal: //Acute oligo anuric kidney injury requiring renal replacement therapy - nephrology consult - HD per nephrology. Still needs volume off. -- Strict I/Os FEN/GI: //Severe metabolic acidosis- resolved //Hyperkalemia- resolved. //Morbid Obesity - continue TF, nepro. nutrition consult for goal. Heme/ID: //Chronic anemia- likely secondary to chronic disease.. Stable //Septic Shock //LLE osteomyelitis //Pseudomonas bacteremia //Gram Positive Bacteremia //Pseudomonas osteomyelitis //Fungal Urinary Tract Infection - daily cbc - will not transfuse at this time given concern for possible volume overload from acute kidney injury - follow up sensitivities - ID consult - continue BSAbx. Endocrine: //Diabetes -- SSI, medium scale, every 6 Prophylaxis: GI Prophylaxis pepcid DVT Prophylaxis -- SCDs Sub-cutaneous heparin Discharge Planning will likely need SNF. -We'll need IV antibiotics as per infectious disease. Appreciate case management assistance. Ray Bonilla MD Oct 17, 2016 19:58
[2016-10-18] VITALS (15 sets, daily range): BP systolic 120–150; BP diastolic 57–64; PULSE 78–90; RESP 14–21; TEMP 98–99.5; O2SAT 100
[2016-10-18] MEDS: RESP: IPRATROPIUM 0.5 MG/2.5 ML NEB NEB SCH ×4 (03:11→19:45)
[2016-10-18] MEDS: INSULIN NovoLIN REGULAR SUPPLEMENTAL SCALE SQ SCH ×4 (06:00→17:59)
[2016-10-18] MEDS: HEPARIN SODIUM - SQ 10,000 UNITS/ML VIAL SQ SCH ×2 (06:16→12:42)
[2016-10-18 06:38] LABS: MEAN CELL VOLUME 97.4 FL (80.0-100.0); MEAN CORPUSCULAR HEMOGLOBIN 31.4 PG (27.0-34.0); MEAN CORPUSCULAR HGB CONC 32.2 % (32.0-36.0); PLATELET COUNT 248 TH/MM3 (150-450); RED BLOOD COUNT 2.15 MIL/MM3 (4.00-5.30); RED CELL DISTRIBUTION WIDTH 18.6 % (11.6-17.2); WHITE BLOOD COUNT 11.3 TH/MM3 (4.0-11.0)
[2016-10-18 06:46] LABS: REVIEW FLAG FINAL
[2016-10-18 06:48] LABS: HEMATOCRIT 20.9 % (35.0-46.0)
[2016-10-18 07:40] LABS: BICARBONATE 25.2 MEQ/L (21.0-32.0); POTASSIUM 3.6 MEQ/L (3.5-5.1)
[2016-10-18] MEDS: SODIUM CHLORIDE 0.9% FLUSH 10 ML FLUSH IV FLUSH SCH ×2 (09:00→21:00)
[2016-10-18] MEDS: LACTOBACILLUS ACIDOPHILUS TAB PO SCH ×3 (09:19→17:00)
[2016-10-18] MEDS: FAMOTIDINE 40 MG/5 ML LIQ 50 ML BTL NG SCH ×2 (09:21→21:00)
[2016-10-18] MEDS ORDERED: SODIUM CHLOR 0.9% 250 ML INJ 250 ML IV ONE (09:30)
[2016-10-18] MEDS: diphenhydrAMINE HCL 25 MG CAP PO PRN (10:38)
[2016-10-18] MEDS ORDERED: EPINEPHrine HCL (1:10,000) 1 MG/10 ML SYRINGE ONE (14:51)
[2016-10-18] MEDS: CEFEPIME INJ 1,000 MG in SODIUM CHLORIDE 0.9% INJ 100 ML IV SCH (15:00)
--- NOTE | 2016-10-18 15:18 | HHI.NPPN ---
Subjective General Problems: Anemia Renal Failure: Acute Interval History She was extubated. Is awake and answering questions. Renal function is better. More anemic today. (Lizy Pineda) Review of Systems General Constitutional: Fatigue (Lizy Pineda) Respiratory Lungs: SOB (Lizy Pineda) Cardiovascular Cardiac: Edema (Lizy Pineda) Objective Data Data Vital Signs Date Time Temp Pulse Resp B/P (MAP) Pulse Ox O2 Delivery O2 Flow Rate FiO2 10/18/16 15:04 100 100 10/18/16 09:33 100 Nasal Cannula 2.00 10/18/16 08:00 99.5 81 16 133/58 (83) 100 10/18/16 07:00 100 Nasal Cannula 3.00 10/18/16 06:00 82 10/18/16 04:00 80 10/18/16 04:00 98.4 80 21 136/58 (84) 100 10/18/16 02:00 80 10/18/16 00:00 78 10/18/16 00:00 98.6 78 18 134/60 (84) 100 10/17/16 22:00 76 10/17/16 21:05 100 Nasal Cannula 2.00 10/17/16 20:00 98.6 78 20 158/72 (100) 100 10/17/16 20:00 78 10/17/16 19:00 100 Nasal Cannula 3.00 10/17/16 18:00 79 10/17/16 16:00 77 10/17/16 16:00 98.7 77 14 154/70 (98) 100 (Lizy Pineda) -: 10/18/16 0615 10/18/16 0615 Imaging Last 72 hours Impressions Chest X-Ray 10/17/16 0500 Signed Impressions: Service Date/Time: Monday, October 17, 2016 04:24 - CONCLUSION: 1. Status post extubation and removal of NGT. 2. Improved aeration and trace fluid in the minor fissure. Jose Alberto Parker MD Chest X-Ray 10/16/16 0000 Signed Impressions: Service Date/Time: Sunday, October 16, 2016 09:26 - CONCLUSION: Improved aeration. Jayme Tobin MD Tubes & Lines: Vas-Cath, Shah (Lizy Pineda. TOOL ANALYST) Physical Exam General Appearance: Well Developed, Comfortable, Obese (Lizy Pineda. TOOL ANALYST) Eyes Eye Exam: Pupils Equal (Lizy Pineda B. TOOL ANALYST) Throat Throat Exam: Oral Mucosa [place] & Moist (Lizy Pineda B. TOOL ANALYST) Neck Neck Exam: Neck Supple (Lizy Pineda B. TOOL ANALYST) Pulmonary Resp Exam: Breath Sounds Equal, No Distress, Rhonchi, Decreased Bases (Lizy Pineda B. TOOL ANALYST) Cardiology CV Exam: Regular, Normal Sinus Rhythm, Good Perfusion (Lizy Pineda B. TOOL ANALYST) Gastrointestinal/Abdomen GI Exam: Soft, Non-Tender, Distended (Lizy Pineda B. TOOL ANALYST) Musculoskeletal MS Exam: Normal Tone, Good Strength, Unable to Ambulate (Lizy Pineda B. TOOL ANALYST) Integumentary Skin Exam: Warm, Dry, Intact (Lizy Pineda TOOL ANALYST) Extremeties Extremities Exam: Pedal Pulses Palpable, Moderate Edema, Pitting Edema, Dependent Edema (Lizy Pineda. TOOL ANALYST) Neurologic Neuro Exam: Alert, Awake, Oriented, Speech Clear, Moving All Extremities (Lizy iPneda TOOL ANALYST) Psychiatric Psych Exam: Appropriate Responses (Lizy Pineda) Assessment/Plan Discussed Condition With: Patient Assessment Summary: RFEDI/Acute Renal Failure Problem List: (1) Acute renal failure ICD Codes: N17.9 - Acute kidney failure, unspecified Status: Acute Plan: She apparently has a baseline creatinine of 1 FREDI from ATN, secondary to dehydration, also the possibility of vancomycin induced nephrotoxicity; may also be due to sepsis Oliguric. HD initiated on 10/13/16, HD - as needed await renal recovery 3500 ml UF yesterday Avoid nephrotoxic agents. Renally dose and monitor drug levels when appropriate repeat renal panel in AM (2) Sepsis ICD Codes: A41.9 - Sepsis, unspecified organism Plan: Dhe has Pseudomonas in the blood, and gram stain of the wound. Also has Ximena in the urine. Currently on Cefepime and Daptomycin She is thought to have left lower extremity osteomyelitis. ID is following PICC was removed on admission (3) Hyperkalemia ICD Codes: E87.5 - Hyperkalemia Status: Acute Plan: Resolved. (4) Metabolic acidosis ICD Codes: E87.2 - Acidosis Status: Acute Plan: improved. (5) Anemia ICD Codes: D64.9 - Anemia Status: Acute Plan: transfusion tomorrow with HD , 2 units (Lizy Pineda) Plan patient was seen and examined. Agree with above assessment and plan. We can transfuse her tomorrow at dialysis. Watch for signs of renal recovery. Later she became unresponsive, discussed with Dr. Johnson, MRI ordered, it did not reveal new stroke. (Francisco Javier Quiros MD) Problem Qualifiers (1) Acute renal failure: Qualified Codes: N17.9 - Acute kidney failure, unspecified (2) Anemia: Qualified Codes: D64.9 - Anemia, unspecified Lizy Pineda Oct 18, 2016 15:18 Francisco Javier Quiros MD Oct 18, 2016 22:31
[2016-10-18 15:25] LABS: HEMATOCRIT 25.5 % (35.0-46.0); MEAN CELL VOLUME 100.5 FL (80.0-100.0); MEAN CORPUSCULAR HEMOGLOBIN 31.6 PG (27.0-34.0); MEAN CORPUSCULAR HGB CONC 31.5 % (32.0-36.0); PLATELET COUNT 249 TH/MM3 (150-450); RED BLOOD COUNT 2.53 MIL/MM3 (4.00-5.30); RED CELL DISTRIBUTION WIDTH 19.4 % (11.6-17.2); REVIEW FLAG FINAL; WHITE BLOOD COUNT 13.9 TH/MM3 (4.0-11.0)
[2016-10-18 15:47] LABS: I-STAT POTASSIUM 4.5 MMOL/L (3.5-4.9)
--- NOTE | 2016-10-18 15:53 | RADRPT ---
EXAM DATE/TIME: 10/18/2016 15:29 [facility] COMPARISON: No previous studies available for comparison. INDICATIONS : Stroke alert, change in mental status RADIATION DOSE: 43.82 CTDIvol (mGy) MEDICAL HISTORY : Cardiovascular disease. Hypertension. Renal failure, chronic. SURGICAL HISTORY : None. ENCOUNTER: Initial ACUITY: 1 day PAIN SCALE: Non-responsive LOCATION: cranial TECHNIQUE: Multiple contiguous axial images were obtained of the head. Using automated exposure control and adj ustment of the mA and/or kV according to patient size, radiation dose was kept as low as reasonably a chievable to obtain optimal diagnostic quality images. DICOM format image data is available electro nically for review and comparison. FINDINGS: CEREBRUM: The ventricles are normal for age. No evidence of midline shift, mass lesion, hemorrhage or acute in farction. No extra-axial fluid collections are seen. POSTERIOR FOSSA: The cerebellum and brainstem are intact. The 4th ventricle is midline. The cerebellopontine angle i s unremarkable. EXTRACRANIAL: The visualized portion of the orbits is intact. There is a mucous retention cyst within the right max illary sinus. SKULL: The calvaria is intact. No evidence of skull fracture. CONCLUSION: 1. No acute intracranial abnormality. 2. Mucous retention cyst within the right maxillary sinus. The findings were called to Dr. Burton at 3:50 PM on 10/18/16. Raymond Smith MD on October 18, 2016 at 15:48 Board Certified Radiologist. This report was verified electronically.
[2016-10-18 15:55] LABS: ALKALINE PHOSPHATASE 302 U/L (45-117); ALT (GPT) 21 U/L (10-53); ANION GAP 16 MEQ/L (5-15); AST (GOT) 30 U/L (15-37); BICARBONATE 19.1 MEQ/L (21.0-32.0); BLOOD UREA NITROGEN 47 MG/DL (7-18); CHLORIDE 107 MEQ/L (98-107); CREATINE KINASE 157 U/L (26-192); GLOMERULAR FILTRATION RATE 10 ML/MIN (>89); POTASSIUM 4.5 MEQ/L (3.5-5.1); SODIUM (NA) 142 MEQ/L (136-145); TOTAL BILIRUBIN ADULT 0.7 MG/DL (0.2-1.0)
[2016-10-18 15:59] LABS: APTT (PATIENT) 43.4 SEC (24.3-30.1); INTERNATIONAL NORMALIZED RATIO 1.3 RATIO; PROTHROMBIN TIME - PATIENT 14.7 SEC (9.8-11.6)
[2016-10-18] MEDS ORDERED: ALTEPLASE BOLUS 9 MG/9 ML SYR IV ONE (16:00)
[2016-10-18] MEDS ORDERED: MISCELLANEOUS NURSING INFORMATION XX PRN (16:00)
[2016-10-18] MEDS ORDERED: ALTEPLASE DRIP 81 MG in SYRINGE/BAG 1 EA IV ONE (16:00)
[2016-10-18] MEDS ORDERED: SODIUM CHLORIDE 0.9% 50 ML BAG IVF ONE (16:00)
[2016-10-18 16:10] LABS: CKMB 3.1 NG/ML (0.5-3.6)
--- NOTE | 2016-10-18 16:16 | HHI.IDPN ---
Subjective Subjective Remarks Delayed entry patient seen at approx 12 noon is a 51 y/o F from a SNF who was being treated for chronic LLE cellulitis, non healing ulcer. Patient's past medical history significant for diabetes type 2 uncontrolled, diabetic nephropathy with baseline creatinine of 1.2, legal blindness likely secondary to diabetic retinopathy. She has a history of recurrent cellulitis and a nonhealing ulcer and has been treated for osteomyelitis in the past. Patient has been treated with IV antibiotics using PICC line in the past. Per discussion with her PCP at [facility] patient has received IV antibiotics multiple times in the past. She was being followed by wound care at snf and decision was made to start IV antibiotics Vanco IV and possibly Zosyn IV using a PICC line. Unknown duration of PICC line at this point. Patient presents with worsening creatinine found at her SNF and altered mental status. On arrival to the ED, she had a Cr 7.7, has a chronic indwelling black catheter and has not had any urine per report in the last few days. Renal ultrasound was negative for hydronephrosis. She also has a excoriating rash over her trunk and arms. She was initially admitted to the floor, but rapid response called for hypotension and altered mental status. She was severely acidotic with a pH of 7.1, base deficit 10, pco2 48. At the time of my evaluation patient is currently in intensive care unit and has been intubated for altered mental status. Patient is also undergoing placement of PICC line. She has no urine output and has a Black bag in place. This Black was present on admission. She also had diarrhea on admission. Her risk factors for C. difficile her prior antibiotic usage and mcc placement. She is currently sedated and not on any vasopressors. Infectious disease is consulted for evaluation and management of severe sepsis with multiorgan dysfunction syndrome, possible line related infection, acute osteomyelitis. Overnight events and notes reviewed D/W RN Temps ok BP ok, not on pressors On Room air and doing ok. UO very low Wound C/S PSAE UC with yeast [place] with no vegetation per my discussion with and . scratching skin from prior vanco infusion as outpt. Antibiotics Cubicin Flagyl Cefepime Micafungin Lines LIJ vascath LSC TLC Past Medical History DM Legally blind COPD HTN anemia sleep apnea CVA neuropathy Afib Allergies: Coded Allergies: morphine (Unverified Allergy, Unknown, 09/26/16) vancomycin (Verified Adverse Reaction, Severe, Rash, 10/17/16) Objective . Vital Signs Date Time Temp Pulse Resp B/P (MAP) Pulse Ox O2 Delivery O2 Flow Rate FiO2 10/18/16 15:04 100 100 10/18/16 09:33 100 Nasal Cannula 2.00 10/18/16 08:00 99.5 81 16 133/58 (83) 100 10/18/16 07:00 100 Nasal Cannula 3.00 10/18/16 06:00 82 10/18/16 04:00 80 10/18/16 04:00 98.4 80 21 136/58 (84) 100 10/18/16 02:00 80 10/18/16 00:00 78 10/18/16 00:00 98.6 78 18 134/60 (84) 100 10/17/16 22:00 76 10/17/16 21:05 100 Nasal Cannula 2.00 10/17/16 20:00 98.6 78 20 158/72 (100) 100 10/17/16 20:00 78 10/17/16 19:00 100 Nasal Cannula 3.00 10/17/16 18:00 79 . Laboratory Tests Test 10/17/16 06:45 10/18/16 06:15 10/18/16 15:00 10/18/16 15:22 White Blood Count 11.7 TH/MM3 11.3 TH/MM3 13.9 TH/MM3 Red Blood Count 2.29 MIL/MM3 2.15 MIL/MM3 2.53 MIL/MM3 Hemoglobin 7.2 GM/DL 6.7 GM/DL 8.0 GM/DL Hematocrit 22.0 % 20.9 % 25.5 % Mean Corpuscular Volume 96.1 FL 97.4 FL 100.5 FL Mean Corpuscular Hemoglobin 31.6 PG 31.4 PG 31.6 PG Mean Corpuscular Hemoglobin Concent 32.8 % 32.2 % 31.5 % Red Cell Distribution Width 18.8 % 18.6 % 19.4 % Platelet Count 261 TH/MM3 248 TH/MM3 249 TH/MM3 Mean Platelet Volume 7.4 FL 7.2 FL 7.0 FL Bedside Hemoglobin 8.8 G/DL Bedside Hematocrit 26.0 % Laboratory Tests Test 10/17/16 06:45 10/18/16 06:15 10/18/16 15:00 10/18/16 15:22 Blood Urea Nitrogen 66 MG/DL 46 MG/DL 47 MG/DL Creatinine 5.34 MG/DL 4.14 MG/DL 4.64 MG/DL Random Glucose 126 MG/DL 95 MG/DL 202 MG/DL Calcium Level 7.9 MG/DL 7.9 MG/DL 7.8 MG/DL Sodium Level 141 MEQ/L 142 MEQ/L 142 MEQ/L Potassium Level 3.8 MEQ/L 3.6 MEQ/L 4.5 MEQ/L Chloride Level 107 MEQ/L 105 MEQ/L 107 MEQ/L Carbon Dioxide Level 22.7 MEQ/L 25.2 MEQ/L 19.1 MEQ/L Anion Gap 11 MEQ/L 12 MEQ/L 16 MEQ/L Estimat Glomerular Filtration Rate 9 ML/MIN 11 ML/MIN 10 ML/MIN Total Protein 7.7 GM/DL Albumin 2.1 GM/DL Alkaline Phosphatase 302 U/L Aspartate Amino Transf (AST/SGOT) 30 U/L Alanine Aminotransferase (ALT/SGPT) 21 U/L Total Bilirubin 0.7 MG/DL Lactic Acid Level 6.8 mmol/L Total Creatine Kinase 157 U/L Troponin I LESS THAN 0.02 NG/ML Bedside Sodium 144 MMOL/L Bedside Potassium 4.5 MMOL/L Bedside Chloride 105 MMOL/L Bedside Blood Urea Nitrogen 43 MG/DL Bedside Creatinine 4.4 MG/DL Bedside Glucose 197 MG/DL Imaging Upper Extremity Ultrasound 10/13/16 0000 Signed Impressions: Service Date/Time: Thursday, October 13, 2016 09:17 - CONCLUSION: 1. No DVT. 2. Subcutaneous edema observed. Wilner Potter Jr., MD Lower Extremity Ultrasound 10/13/16 0000 Signed Impressions: Service Date/Time: Thursday, October 13, 2016 08:57 - CONCLUSION: 1. Study has some limitations as detailed above. No DVT observed. Wilner Potter Jr., MD Lower Extremity CT 10/13/16 0000 Signed Impressions: Service Date/Time: Thursday, October 13, 2016 21:35 - CONCLUSION: Ulcer at the region of the base of the fifth metatarsal. There appears to be chronic and acute changes in this region. The acute changes are worrisome for osteomyelitis at the base of the fifth metatarsal. Ricco Fuentes MD Chest X-Ray 10/13/16 Signed Impressions: Service Date/Time: Thursday, October 13, 2016 15:05 - CONCLUSION: Support apparatus in good position without pneumothorax. Roman Montiel MD FACR Chest CT 10/13/16 0000 Signed Impressions: Service Date/Time: Thursday, October 13, 2016 21:27 - CONCLUSION: 1. Patchy areas of consolidation seen bilaterally being worse on the right. These could represent areas of inflammatory/infectious disease. Focal round lesions to suggest septic emboli are not clearly identified. 2. Edema seen at the right superficial chest and abdomen regions. The cause of for this asymmetric edema is not known. 3. Mild ascites. Ricco Fuentes MD Abdomen CT 10/13/16 Signed Impressions: Service Date/Time: Thursday, October 13, 2016 21:27 - CONCLUSION: 1. Mild ascites seen around the liver. 2. Superficial edema seen bilaterally in the subcutaneous tissues. This is asymmetric and being much more prominent on the right. 3. Small area of increased density seen independently in the gallbladder representing either small gallstones or milk of calcium. Ricco Fuentes MD Renal Ultrasound 10/12/16 0000 Signed Impressions: Service Date/Time: September 20:54 - CONCLUSION: Normal appearance of the kidneys. Ricco Fuentes MD Physical Exam GENERAL:Morbidly obese dark skinned female, in no apparent distress. Eyes open, on the vent SKIN: Diffuse rash in her whole trunk UE and thighs and upper chest wall. Now with skin peeling noted. HEAD: Atraumatic. Normocephalic. No temporal or scalp tenderness. EYES: Pupils equal round and reactive. No scleral icterus. No injection or drainage. ENT: Intubated. NECK: Large neck. Has bleeding at vascath site CARDIOVASCULAR: Distant HS. No murmur audible. RESPIRATORY: Clear to auscultation. Breath sounds equal bilaterally. No wheezes , rales, or rhonchi. GASTROINTESTINAL: Abdomen soft, obese, no reaction to palpation, no guarding, pannus with erythema and moisture. MUSCULOSKELETAL: Left LE with ulcer noted with packing with foul smelling discharge. 1.5 cm opening, deep approx 1.5 cm ? bone probed. Chronic venous stasis changes. NEUROLOGICAL: Awake Sacrum: 2 non stageable ulcers. Psych: could not be assessed. Assessment & Plan Remarks Assessment and Plan Severe Sepsis present on admission PSAE and CGNS bacteremia sepsis, ?PICC, ?L foot Probable PICC line site infection Pneumonia: septic emboli or aspiration PNA. Acute renal failure: Vanco induced, prerenal Rash: Vanco IV, fungemia related diffuse rash Acute metabolic encephalopathy: sepsis, metabolic. DM2 with Nephropathy, legal blondness (? DM retinopathy). Acute Osteomyelitis, non healing ulcer likely infected as purulence noted. Diarrhea present on admission UTI Recs: Continue Cefepime IV (on days of HD to be given after HD) Continue Dapto IV (on days of HD to be given after HD) Please reconsult podiatry pt now stable. MRI with ? osteo 5th digit of right foot. Follow C/S Monitor progress D/W RN and pt sisters in the room as well as patient. D/w Podiatry covering for . Patient is high risk for surgery. He recommends medical management. Addendum: Stat blood cultures. UA with urine culture. Start Micafungin IV(possible fungemia, on broad spectrum antibiotics) dted SANTANA MD and , RN: acute change in mentation. Patient sent to CT brain (negative), MRI brain (pending). Based on clinical suspicion, neuro evaluation concern for Brain stem infarct given acute onset hypotension and change in mentation. Lilibeth Johnson MD Oct 18, 2016 16:16
--- NOTE | 2016-10-18 16:23 | MB ---
cc: SUSANNA CHURCHILL M.D. DATE OF CONSULTATION 10/18/2016 REASON FOR CONSULTATION Stroke alert. HISTORY OF PRESENT ILLNESS Ms. Zheng is a 51-year-old female with end-stage renal disease for which she receives dialysis as well as diabetes. She was receiving dialysis today suddenly became very hypotensive with a blood pressure in the 30s and 40s and unresponsive. Once her blood pressure normalized, however, she did not regain consciousness. There is no movement of the extremities. PAST MEDICAL HISTORY 1. History of hypertension. 2. COPD. 3. Legally blind. 4. Diabetic neuropathy. 5. History of stroke in the past. 6. Chronic obstructive pulmonary disease. 7. Sleep apnea. 8. History of atrial fibrillation. ALLERGIES MORPHINE AND VANCOMYCIN. MEDICATIONS Current medications are: 1. Apresoline p.r.n. 2. Trandate p.r.n. 3. Pepcid 10 mg b.i.d. 4. Heparin with dialysis. 5. Mannitol with dialysis. 6. Gentamicin with dialysis. 7. Zofran p.r.n. 8. Tylenol p.r.n. 9. Benadryl 25 mg p.o. p.r.n. 10. Catapres p.r.n. 11. Cefepime. 12. Heparin 5000 units subcu q.8h. 13. Ipratropium bromide p.r.n. 14. Atrovent as needed. 15. Narcan as needed. NEUROLOGICAL EXAMINATION VITAL SIGNS: Blood pressure is 133/58, pulse is 81, respirations 16, temperature 99 degrees. Higher cortical functions, she opens her eyes. She does not follow any commands at the present time. Pupils equal, reactive. I cannot find any extraocular movements to doll's eyes maneuver. Gag reflex is diminished. On motor exam she has no spontaneous movement of the upper or lower extremities. There is no withdrawal to painful stimuli. No Babinski signs present. IMAGING CT of the brain no acute change present. LABORATORY DATA The white count is 13,900, hemoglobin 8, hematocrit 25.5%, platelet count is 249,000. Coags currently pending. Sodium is 142, potassium 3.6, chloride 105, CO2 25.2. The BUN is 46, creatinine 4.14, GFR is 11, glucose is 95. Urinalysis pH is 6, specific gravity 1.023, protein is 300, rbc's 178, innumerable wbc's are identified. IMPRESSION Probable pontine stroke based on her examination. RECOMMENDATIONS There is no contraindication for IV tPA. Would recommend proceeding with IV tPA. We will also proceed with stat MRI of the brain. Also MRA to evaluate for the possibility of a basilar artery thrombosis. Recommend withholding any anticoagulants or antiplatelets for 24 hours post tPA. We will check a CT of the brain 24 hours post tPA as well. Also check labs for hypercoagulable state. MD DAVIDSON More/BENJY /3:52 PM /4:04 PM
--- NOTE | 2016-10-18 16:36 | RADRPT ---
EXAM DATE/TIME: 10/18/2016 14:59 [facility] COMPARISON: CHEST SINGLE AP, October 17, 2016, 4:24. INDICATIONS : Intubation. MEDICAL HISTORY : Diabetes mellitus type II. Hypertension Stroke. Hyperkalemia SURGICAL HISTORY : Right eye surgery. ENCOUNTER: Subsequent ACUITY: 3 days PAIN SCORE: Non-responsive. LOCATION: Bilateral chest FINDINGS: The heart is enlarged. Mild to moderate pulmonary vascular congestion is noted. There is elevation of the right hemidiaphragm. An endotracheal tube has been placed and has its tip 3 cm above the rasta na in good position. A left internal jugular VasCath has its tip in the superior vena cava. A left s ubclavian central line has its tip in the superior vena cava also. CONCLUSION: 1. Mild to moderate pulmonary vascular congestion. 2. Cardiomegaly. 3. Elevation of the right hemidiaphragm. 4. Endotracheal tube in good position 3 cm above the elsie. 5. Left internal jugular VasCath and left subclavian central line are stable in positions. Raymond Smith MD on October 18, 2016 at 16:31 Board Certified Radiologist. This report was verified electronically.
--- NOTE | 2016-10-18 17:04 | RADRPT ---
EXAM DATE/TIME: 10/18/2016 16:11 [facility] COMPARISON: No previous studies available for comparison. INDICATIONS : Stroke alert. MEDICAL HISTORY : Cardiovascular disease. Hypertension. Renal failure, chronic SURGICAL HISTORY : Non responsive ENCOUNTER: Subsequent ACUITY: 1 week PAIN SCORE: Nonresponsive. LOCATION: cranial TECHNIQUE: Multiplanar, multisequence MRI of the brain was performed without contrast. FINDINGS: CEREBRUM: The ventricles are normal for age. No evidence of midline shift, mass lesion, hemorrhage or acute in farction. No extraaxial fluid collections are seen. The pituitary gland and suprasellar cistern are normal in configuration. WHITE MATTER: Mild periventricular white matter T2 hyperintensity in the left frontal region, nonspecific. POSTERIOR FOSSA: The cerebellum and brainstem are intact. The 4th ventricle is midline. The cerebellopontine angle is unremarkable. The cerebellar tonsils are normal in position. DIFFUSION IMAGING: No focal areas of restricted diffusion are seen. No evidence of acute infarction. EXTRACRANIAL: Mucous retention cyst in the right maxillary sinus. Fluid in the mastoids bilaterally.. CONCLUSION: Nonspecific white matter signal change in the left frontal region. No evidence of acute stroke. Ricco Kulkarni MD on October 18, 2016 at 16:59 Board Certified Radiologist. This report was verified electronically.
--- NOTE | 2016-10-18 17:05 | RADRPT ---
EXAM DATE/TIME: 10/18/2016 16:23 [facility] COMPARISON: No previous studies available for comparison. INDICATIONS : Stroke alert. MEDICAL HISTORY : Cardiovascular disease. Hypertension. Renal failure, chronic. SURGICAL HISTORY : Non responsive ENCOUNTER: Subsequent ACUITY: 1 week PAIN SCORE: Nonresponsive. LOCATION: cranial Please note a normal MRA of the brain does not entirely exclude the possibility of a small aneurysm, nor the possibility of distal intracranial vessel disease. TECHNIQUE: 3D time of flight MRA was performed. Source images, multiplanar STS MIP, and 3D volume MIP reconstru ctions were reviewed. FINDINGS: There is excellent visualization of the major intracranial arteries out to the second-order branch ve ssels. There is no evidence for aneurysm, vessel truncation or stenosis, and no evidence for vascula r malformation. CONCLUSION: Normal examination. Ricco Kulkarni MD on October 18, 2016 at 17:02 Board Certified Radiologist. This report was verified electronically.
--- NOTE | 2016-10-18 17:16 | HHI.CCPN ---
Subjective Remarks/Hospital Course Hospital Course: This is a 51yF from a SNF who was being treated for chronic LLE cellulitis with approximately 6 months of vancomycin through an indwelling right arm PICC line, who presents with worsening creatinine found at her SNF and altered mental status. On arrival to the ED, she had a Cr 7.7, has a chronic indwelling black catheter and has not had any urine per report in the last few days. Renal ultrasound was negative for hydronephrosis. She also has a excoriating rash over her trunk and arms. She was initially admitted to the floor, but rapid responsed for hypotension and altered mental status. On my evaluation in the ICU , she is very altered and a poor historian. She endorses needing to have a bowel movement, though she has a rectal tube in place with large amount of liquid stool. She is quite agitated and is preventing a full history and physical exam. On bedside critical care echocardiogram, she has a hyperdynamic LV, mildly dilated RV, and clinically significant tricuspid regurgitation with an estimated trans-tricuspid gradient of ~60 mmHg. There is no pericardial effusion. IVC is dilated at 2.5cm without any respiratory variation. Critical care medicine is consulted to evaluate and manage her hypotension and altered mental status. She is additionally severely acidotic with a pH of 7.1, base deficit 10, pco2 48: she is not compensating appropriately. The remainder of the history is found from chart review due to the patient's clinical condition. Subjective: 10/14: off vasopressors and inotropes, but remains encephalopathic, intubated. HD again today. [place] without overt endocarditis. blood cultures growing gram negative rods and CT leg with probable osteomyelitis. off pathway without much overall improvements. 10/15: vascath with significant oozing. pursestring suture placed. cultures growing pseudomonas in blood and wound, also with GPCs in blood and yeast in urine. failed cpap this morning for apnea and hypoxia. no significant improvements. 10/16: Tolerating SBTs, will work to extubate. 10/18: Called to reevaluate patient as she was doing well this morning however became suddenly unresponsive and hypotensive with systolic blood pressure in the 50s. I evaluated the patient immediately on being notified. Patient essentially obtunded/comatose with no response to painful stimuli. She was being ventilated with bag mask ventilation by respiratory therapist. Ordered fluid bolus stat and epinephrine 1 mg IV stat following which I proceeded with emergent intubation using glide scope. Her blood pressure responded following epinephrine injection and she was subsequently maintaining a systolic blood pressure in the 130s by A-line. No sedatives administered during intubation as patient essentially unresponsive with no gag response. Following intubation patient was placed on mechanical ventilation. Stat labs were sent. Fingerstick glucose 114. Stroke alert was called and patient was taken for stat head CT which was negative for bleed. Discussed the case with Dr. Burton from neurology who evaluated patient while she was in CAT scan as well. At that time patient had occasional eye opening however not following commands and not responding to painful stimuli with no movement in either extremities. Decision made to proceed with stat MRI/ MRA brain and to initiate thrombolysis with TPA which was administered while patient was waiting for MRI. Patient was reportedly doing well this morning awake and alert following commands. History was obtained by reviewing records and discussion with nursing staff. Patient unable to give any history in view of altered mental status. Objective Vital Signs Date Time Temp Pulse Resp B/P (MAP) Pulse Ox O2 Delivery O2 Flow Rate FiO2 10/18/16 15:04 100 100 10/18/16 09:33 Nasal Cannula 2.00 10/18/16 08:00 99.5 81 16 133/58 (83) Intake and Output 10/18/16 10/18/16 10/19/16 08:00 16:00 00:00 Output Total 90 ml Balance -90 ml Result Diagram: 10/18/16 1500 10/18/16 1500 Imaging Last Impressions Upper Extremity Ultrasound 10/13/16 0000 Signed Impressions: Service Date/Time: Thursday, October 13, 2016 09:17 - CONCLUSION: 1. No DVT. 2. Subcutaneous edema observed. Wilner Potter Jr., MD Lower Extremity Ultrasound 10/13/16 0000 Signed Impressions: Service Date/Time: Thursday, October 13, 2016 08:57 - CONCLUSION: 1. Study has some limitations as detailed above. No DVT observed. Wilner Potter Jr., MD Lower Extremity CT 10/13/16 0000 Signed Impressions: Service Date/Time: Thursday, October 13, 2016 21:35 - CONCLUSION: Ulcer at the region of the base of the fifth metatarsal. There appears to be chronic and acute changes in this region. The acute changes are worrisome for osteomyelitis at the base of the fifth metatarsal. Ricco Fuentes MD Chest X-Ray 10/13/16 0000 Signed Impressions: Service Date/Time: Thursday, October 13, 2016 15:05 - CONCLUSION: Support apparatus in good position without pneumothorax. Roman Montiel MD FACR Chest CT 10/13/16 0000 Signed Impressions: Service Date/Time: Thursday, October 13, 2016 21:27 - CONCLUSION: 1. Patchy areas of consolidation seen bilaterally being worse on the right. These could represent areas of inflammatory/infectious disease. Focal round lesions to suggest septic emboli are not clearly identified. 2. Edema seen at the right superficial chest and abdomen regions. The cause of for this asymmetric edema is not known. 3. Mild ascites. Ricco Fuentes MD Abdomen CT 10/13/16 0000 Signed Impressions: Service Date/Time: Thursday, October 13, 2016 21:27 - CONCLUSION: 1. Mild ascites seen around the liver. 2. Superficial edema seen bilaterally in the subcutaneous tissues. This is asymmetric and being much more prominent on the right. 3. Small area of increased density seen independently in the gallbladder representing either small gallstones or milk of calcium. Ricco Fuentes MD Renal Ultrasound 10/12/16 0000 Signed Impressions: Service Date/Time: September 20:54 - CONCLUSION: Normal appearance of the kidneys. Ricco Fuentes MD Objective Remarks gen: middle-aged, morbidly obese female, intubated and sedated. heent: perrl. mucous membranes moist. large tongue. neck: very large neck circumference. unable to assess jvd. trachea midline. left SC TLC site looks clean and dry. left IJ vascath in place chest: intubated, prvc, 40% fio2. equal chest rise. distant breath sounds. No rhonchi crackles or wheezing. cv: normal rate, regular rhythm. sinus by telemetry. abd: morbidly obese, soft, nontender, nondistended. extr: 2+ peripheral edema. LLE wrapped in kierra bandage. distal pulses 1+. skin: there is a desquamated rash which has areas of excoriation and scaling over the trunk and upper arms bilaterally. it does not [place]. neuro: Comatose initially on evaluation with no response to painful stimuli and no movement in either extremities. Deep tendon reflexes depressed generally, plantar response absent bilaterally. Subsequently patient had spontaneous eye opening however not following commands. Vascular Central Line Catheter: Yes Assessment to: Continue A/P Assessment and Plan Assessment: 51yF with LLE cellulitis who presented with severe oligoanuric acute kidney injury and associated metabolic encephalopathy, septic shock, gram negative uzma bacteremia, fungal urinary tract infection, osteomyelitis, multi- organ system dysfunction. She improved following initiation of hemodialysis and antibiotics and was subsequently extubated on 10/16. Reconsulted for sudden change in mental status and hypotension on 10/18 with suspected stroke - stroke alert called following emergent intubation. Plan by systems: Neurologic: Suspected stroke alert with acute change in neurologic status Metabolic Encephalopathy secondary to Uremia and sepsis - frequent neuro checks. Currently not requiring any sedatives or narcotics even though intubated. -Stat head CT negative for bleed. Stat MRI/MRA brain ordered. Patient was administered IV thrombolysis following evaluation by neurology Dr. Burton in view of concern for brain stem CVA while awaiting MRI brain - Check urine tox screen Respiratory: Obesity Hypoventilation Syndrome COPD Sleep Apnea Acute hypoxic and hypercarbic respiratory failure- persistent, no improvement. Pulmonary Edema - intubated 10/13 for progressive hypoxia - extubated 10/16. -Emergently intubated on 10/18 for airway protection due to altered mental status. - vent bundle, hob at 30 degrees, nebs - daily CPAP trials if neurologic status improves. Cardiovascular: Septic Shock- resolving. Severe Tricuspid Regurgitation - keep central line and art line. - needs continued volume removal via IHD - Hypotension resolved following 1 mg epinephrine IV push prior to intubation. Renal: Acute oligo anuric kidney injury requiring renal replacement therapy - nephrology consult - HD per nephrology. needs volume off. -- Strict I/Os FEN/GI: Severe metabolic acidosis- resolved Hyperkalemia- resolved. Morbid Obesity -Insert OG tube and start tube feeds with Nepro, advance to goal as tolerated. Heme/ID: Chronic anemia- likely secondary to chronic disease Septic Shock LLE osteomyelitis Pseudomonas bacteremia Gram Positive Bacteremia Pseudomonas osteomyelitis Fungal Urinary Tract Infection - daily cbc - will not transfuse at this time given concern for possible volume overload from acute kidney injury unless hypotension recurs or hemoglobin drops below 7 g percent. - follow up sensitivities - ID consult noted. - continue BSAbx. Endocrine: Diabetes -- SSI, medium scale, every 6 Prophylaxis: GI Prophylaxis pepcid DVT Prophylaxis -- SCDs Sub-cutaneous heparin (hold heparin for 24 hours following IV TPA) Lines: - 10/13 left SC TLC - 10/13 left IJ vascath - 10/13 right radial arterial line - Pablo Overall impression: Critically ill with encephalopathy with suspected stroke, sepsis and renal failure, requiring dialysis and mechanical ventilatory support. This patient remains critically ill with one or more organ systems which are or may become a threat to life. I have spent in excess of 60 minutes discontinuously in the care and management of this patient including accompanying her for CAT scan and discussion with stroke team as well as neurologist Dr. Burton. This time is exclusive of procedures, and includes, but is not limited to, evaluation of the patient, review of the medical record, discussions with family, consultants, nursing staff, or respiratory therapy, and documentation in the medical record. Yahir Johnson MD Oct 18, 2016 17:16
--- NOTE | 2016-10-18 17:18 | PD.PROCEDR ---
Procedure Note Procedure Procedure: Endotracheal intubation Preop diagnosis: Altered mental status with suspected stroke, hypotension Postop diagnosis: Same Indication: Airway protection Sedation used: None Procedure: Patient was preoxygenated with 100% oxygen via Ambu bag with bag mask ventilation, following induction of sedation and neuromuscular blockade, laryngoscopy was performed using a glide scope with good visualization of vocal cords. An 8 Arabic ET tube was passed through the vocal cords under direct visualization up to the 23 centimeter jordi and after inflating cuff of ET tube, correct placement was confirmed using bagging with good color change on CO2 detector, 5 point auscultation and chest rise with ventilation. Patient was connected to mechanical ventilation. Patient tolerated the procedure well with no immediate complications noted. Postprocedure chest x-ray was ordered. Yahir Johnson MD Oct 18, 2016 17:18
[2016-10-18 17:38] LABS: BACTERIA, URINE MOD /hpf; BLOOD, URINE LARGE (NEG); COMMENT (UR) CULTURE INDICATED; CULTURE IF INDICATED CULTURE INDICATED; GLUCOSE,URINE NEG (NEG); KETONE, URINE TRACE mg/dL (NEG); NITRITE,URINE NEG (NEG); PH, URINE 5.5 (5.0-8.5); RENAL EPITHELIAL CELLS 2 /hpf; SQUAMOUS EPITHELIAL CELL URINE 5 /hpf (0-5)
[2016-10-18 17:39] LABS: URINE COLOR LIGHT-RED (YELLW/STRAW)
[2016-10-18] MEDS ORDERED: MICAFUNGIN INJ 150 MG in SODIUM CHLORIDE 0.9% INJ 100 ML IV SCH (18:00)
[2016-10-18 18:03] LABS: BLOOD GAS BASE EXCESS -3.9 mmol/L (-2-2); BLOOD GAS CARBOXYHEMOGLOBIN 1.7 % (0-4); BLOOD GAS HCO3 21 mmol/L (22-26); BLOOD GAS METHEMOGLOBIN 1.1 % (0-2); BLOOD GAS O2 HGB SATURATION 98 % (90-100); BLOOD GAS OXYGEN CONTENT 10.7 Vol % (12.0-20.0); BLOOD GAS PCO2 41 mmHg (38-42); BLOOD GAS PO2 405 mmHg (61-120); CRITICAL VALUE NO; DRAW SITE ART LINE; FIO2 100 %; NUMBER OF ARTERIAL PUNCTURES 0; OXYGEN DEVICE VENTILATOR; STAT NO; TEMP CORR TO 98.6; ULNAR PULSE PRESENT; VENT SETTINGS PRVC/14/550/1.0/+5
[2016-10-18] MEDS: CHLORHEXIDINE 0.12% (ORAL KIT) 15 ML CUP MT SCH (20:00)
[2016-10-19] VITALS (18 sets, daily range): BP systolic 133–169; BP diastolic 60–78; PULSE 81–88; RESP 11–16; TEMP 98.1–98.4; O2SAT 97–100
[2016-10-19] MEDS: RESP: IPRATROPIUM 0.5 MG/2.5 ML NEB NEB SCH ×4 (02:00→20:08)
[2016-10-19] MEDS: hydrALAZINE HCL 20 MG/ML VIAL IV PUSH PRN (02:31)
[2016-10-19] MEDS: INSULIN NovoLIN REGULAR SUPPLEMENTAL SCALE SQ SCH ×4 (05:08→17:36)
[2016-10-19 06:04] LABS: HEMATOCRIT 23.6 % (35.0-46.0); MEAN CELL VOLUME 99.4 FL (80.0-100.0); MEAN CORPUSCULAR HEMOGLOBIN 31.9 PG (27.0-34.0); MEAN CORPUSCULAR HGB CONC 32.1 % (32.0-36.0); PLATELET COUNT 257 TH/MM3 (150-450); RED BLOOD COUNT 2.37 MIL/MM3 (4.00-5.30); RED CELL DISTRIBUTION WIDTH 19.1 % (11.6-17.2); REVIEW FLAG FINAL
[2016-10-19 06:42] LABS: BICARBONATE 21.9 MEQ/L (21.0-32.0); POTASSIUM 4.1 MEQ/L (3.5-5.1)
[2016-10-19] MEDS: GENTAMICIN SULFATE (DIALYSIS USE ONLY) 20 MG/2 ML VIAL IV PRN (07:38)
[2016-10-19] MEDS: HEPARIN SODIUM - IV 10,000 UNITS/10 ML VIAL PRN (07:39)
[2016-10-19] MEDS: CHLORHEXIDINE 0.12% (ORAL KIT) 15 ML CUP MT SCH ×2 (08:00→20:00)
[2016-10-19] MEDS: LACTOBACILLUS ACIDOPHILUS TAB PO SCH ×3 (08:00→17:00)
--- NOTE | 2016-10-19 08:20 | HHI.CCPN ---
Subjective Remarks/Hospital Course Hospital Course: This is a 51yF from a SNF who was being treated for chronic LLE cellulitis with approximately 6 months of vancomycin through an indwelling right arm PICC line, who presents with worsening creatinine found at her SNF and altered mental status. On arrival to the ED, she had a Cr 7.7, has a chronic indwelling black catheter and has not had any urine per report in the last few days. Renal ultrasound was negative for hydronephrosis. She also has a excoriating rash over her trunk and arms. She was initially admitted to the floor, but rapid responsed for hypotension and altered mental status. On my evaluation in the ICU , she is very altered and a poor historian. She endorses needing to have a bowel movement, though she has a rectal tube in place with large amount of liquid stool. She is quite agitated and is preventing a full history and physical exam. On bedside critical care echocardiogram, she has a hyperdynamic LV, mildly dilated RV, and clinically significant tricuspid regurgitation with an estimated trans-tricuspid gradient of ~60 mmHg. There is no pericardial effusion. IVC is dilated at 2.5cm without any respiratory variation. Critical care medicine is consulted to evaluate and manage her hypotension and altered mental status. She is additionally severely acidotic with a pH of 7.1, base deficit 10, pco2 48: she is not compensating appropriately. The remainder of the history is found from chart review due to the patient's clinical condition. Subjective: 10/14: off vasopressors and inotropes, but remains encephalopathic, intubated. HD again today. [place] without overt endocarditis. blood cultures growing gram negative rods and CT leg with probable osteomyelitis. off pathway without much overall improvements. 10/15: vascath with significant oozing. pursestring suture placed. cultures growing pseudomonas in blood and wound, also with GPCs in blood and yeast in urine. failed cpap this morning for apnea and hypoxia. no significant improvements. 10/16: Tolerating SBTs, will work to extubate. 10/18: Called to reevaluate patient as she was doing well this morning however became suddenly unresponsive and hypotensive with systolic blood pressure in the 50s. I evaluated the patient immediately on being notified. Patient essentially obtunded/comatose with no response to painful stimuli. She was being ventilated with bag mask ventilation by respiratory therapist. Ordered fluid bolus stat and epinephrine 1 mg IV stat following which I proceeded with emergent intubation using glide scope. Her blood pressure responded following epinephrine injection and she was subsequently maintaining a systolic blood pressure in the 130s by A-line. No sedatives administered during intubation as patient essentially unresponsive with no gag response. Following intubation patient was placed on mechanical ventilation. Stat labs were sent. Fingerstick glucose 114. Stroke alert was called and patient was taken for stat head CT which was negative for bleed. Discussed the case with Dr. Burton from neurology who evaluated patient while she was in CAT scan as well. At that time patient had occasional eye opening however not following commands and not responding to painful stimuli with no movement in either extremities. Decision made to proceed with stat MRI/ MRA brain and to initiate thrombolysis with TPA which was administered while patient was waiting for MRI. Patient was reportedly doing well this morning awake and alert following commands. History was obtained by reviewing records and discussion with nursing staff. Patient unable to give any history in view of altered mental status. 10/19: Patient Orally intubated on mechanical ventilation overnight. Her neurologic status improved last evening. MRI/MRA brain were essentially unremarkable. A tox screen sent yesterday evening came back positive for benzodiazepines though she had no recorded benzodiazepines administered on the APR bringing up suspicion for surreptitious benzodiazepine use as patient did have a visit her shortly prior to her change in mental status. She has not had any further hypotension. She awakens on verbal command and moves all 4 extremities. Objective Vital Signs Date Time Temp Pulse Resp B/P (MAP) Pulse Ox O2 Delivery O2 Flow Rate FiO2 10/19/16 07:43 100 40 10/19/16 07:00 Mechanical Ventilator 10/19/16 06:00 84 10/19/16 04:00 98.1 14 133/60 (84) 10/18/16 09:33 2.00 Intake and Output 10/19/16 10/19/16 10/20/16 08:00 16:00 00:00 Output Total 50 ml Balance -50 ml Result Diagram: 10/19/16 0550 10/19/16 0550 Other Results Laboratory Tests Test 10/18/16 15:00 10/18/16 15:22 10/18/16 17:00 10/18/16 17:49 White Blood Count 13.9 TH/MM3 Red Blood Count 2.53 MIL/MM3 Hemoglobin 8.0 GM/DL Hematocrit 25.5 % Mean Corpuscular Volume 100.5 FL Mean Corpuscular Hemoglobin 31.6 PG Mean Corpuscular Hemoglobin Concent 31.5 % Red Cell Distribution Width 19.4 % Platelet Count 249 TH/MM3 Mean Platelet Volume 7.0 FL Blood Urea Nitrogen 47 MG/DL Creatinine 4.64 MG/DL Random Glucose 202 MG/DL Total Protein 7.7 GM/DL Albumin 2.1 GM/DL Calcium Level 7.8 MG/DL Alkaline Phosphatase 302 U/L Aspartate Amino Transf (AST/SGOT) 30 U/L Alanine Aminotransferase (ALT/SGPT) 21 U/L Total Bilirubin 0.7 MG/DL Sodium Level 142 MEQ/L Potassium Level 4.5 MEQ/L Chloride Level 107 MEQ/L Carbon Dioxide Level 19.1 MEQ/L Anion Gap 16 MEQ/L Estimat Glomerular Filtration Rate 10 ML/MIN Lactic Acid Level 6.8 mmol/L Total Creatine Kinase 157 U/L Creatine Kinase MB 3.1 NG/ML Troponin I LESS THAN 0.02 NG/ML Bedside Hemoglobin 8.8 G/DL Bedside Hematocrit 26.0 % Prothrombin Time 14.7 SEC Prothromb Time International Ratio 1.3 RATIO Activated Partial Thromboplast Time 43.4 SEC Bedside Sodium 144 MMOL/L Bedside Potassium 4.5 MMOL/L Bedside Chloride 105 MMOL/L Bedside Blood Urea Nitrogen 43 MG/DL Bedside Creatinine 4.4 MG/DL Bedside Glucose 197 MG/DL Urine Color LIGHT-RED Urine Turbidity CLOUDY Urine pH 5.5 Urine Specific [place] 1.020 Urine Protein 300 mg/dL Urine Glucose (UA) NEG mg/dL Urine Ketones TRACE mg/dL Urine Occult Blood LARGE Urine Nitrite NEG Urine Bilirubin NEG Urine Urobilinogen LESS THAN 2.0 MG/DL Urine Leukocyte Esterase LARGE Urine RBC /hpf Urine WBC /hpf Urine Squamous Epithelial Cells 5 /hpf Urine Renal Epithelial Cells 2 /hpf Urine Bacteria MOD /hpf Urine Yeast (Budding) MANY Microscopic Urinalysis Comment CULTURE INDICATED Urine Opiates Screen NEG Urine Barbiturates Screen NEG Urine Amphetamines Screen NEG Urine Benzodiazepines Screen POS Urine Cocaine Screen NEG Urine Cannabinoids Screen NEG Blood Gas Puncture Site ART LINE Blood Gas Patient Temperature 98.6 Blood Gas HCO3 21 mmol/L Blood Gas Base Excess -3.9 mmol/L Blood Gas Oxygen Saturation 98 % Arterial Blood pH 7.33 Arterial Blood Partial Pressure CO2 41 mmHg Arterial Blood Partial Pressure O2 405 mmHg Arterial Blood Oxygen Content 10.7 Vol % Arterial Blood Carboxyhemoglobin 1.7 % Arterial Blood Methemoglobin 1.1 % Blood Gas Hemoglobin 7.0 G/DL Oxygen Delivery Device VENTILATOR Blood Gas Ventilator Setting PRVC/14/550/1.0/+5 Blood Gas Inspired Oxygen 100 % Test 10/19/16 05:50 White Blood Count 14.0 TH/MM3 Red Blood Count 2.37 MIL/MM3 Hemoglobin 7.6 GM/DL Hematocrit 23.6 % Mean Corpuscular Volume 99.4 FL Mean Corpuscular Hemoglobin 31.9 PG Mean Corpuscular Hemoglobin Concent 32.1 % Red Cell Distribution Width 19.1 % Platelet Count 257 TH/MM3 Mean Platelet Volume 7.6 FL Blood Urea Nitrogen 52 MG/DL Creatinine 4.74 MG/DL Random Glucose 143 MG/DL Calcium Level 8.1 MG/DL Phosphorus Level 5.2 MG/DL Sodium Level 141 MEQ/L Potassium Level 4.1 MEQ/L Chloride Level 105 MEQ/L Carbon Dioxide Level 21.9 MEQ/L Anion Gap 14 MEQ/L Estimat Glomerular Filtration Rate 10 ML/MIN Imaging Last 48 hours Impressions Head Magnetic Resonance Angiography 10/18/16 0000 Signed Impressions: Service Date/Time: Tuesday, October 18, 2016 16:23 - CONCLUSION: Normal examination. Ricco Kulkarni MD Head CT 10/18/16 0000 Signed Impressions: Service Date/Time: Tuesday, October 18, 2016 15:29 - CONCLUSION: 1. No acute intracranial abnormality. 2. Mucous retention cyst within the right maxillary sinus. The findings were called to Dr. Burton at 3:50 PM on 10/18/16. Raymond Smith MD Chest X-Ray 10/18/16 0000 Signed Impressions: Service Date/Time: Tuesday, October 18, 2016 14:59 - CONCLUSION: 1. Mild to moderate pulmonary vascular congestion. 2. Cardiomegaly. 3. Elevation of the right hemidiaphragm. 4. Endotracheal tube in good position 3 cm above the elsie. 5. Left internal jugular VasCath and left subclavian central line are stable in positions. Raymond Smith MD Brain MRI 10/18/16 0000 Signed Impressions: Service Date/Time: Tuesday, October 18, 2016 16:11 - CONCLUSION: Nonspecific white matter signal change in the left frontal region. No evidence of acute stroke. Ricco Kulkarni MD Last Impressions Upper Extremity Ultrasound 10/13/16 Signed Impressions: Service Date/Time: Thursday, October 13, 2016 09:17 - CONCLUSION: 1. No DVT. 2. Subcutaneous edema observed. Wilner Potter Jr., MD Lower Extremity Ultrasound 10/13/16 Signed Impressions: Service Date/Time: Thursday, October 13, 2016 08:57 - CONCLUSION: 1. Study has some limitations as detailed above. No DVT observed. Wilner Potter Jr., MD Lower Extremity CT 10/13/16 Signed Impressions: Service Date/Time: Thursday, October 13, 2016 21:35 - CONCLUSION: Ulcer at the region of the base of the fifth metatarsal. There appears to be chronic and acute changes in this region. The acute changes are worrisome for osteomyelitis at the base of the fifth metatarsal. Ricco Fuentes MD Chest X-Ray 10/13/16 Signed Impressions: Service Date/Time: Thursday, October 13, 2016 15:05 - CONCLUSION: Support apparatus in good position without pneumothorax. Roman Montiel MD FACR Chest CT 10/13/16 Signed Impressions: Service Date/Time: Thursday, October 13, 2016 21:27 - CONCLUSION: 1. Patchy areas of consolidation seen bilaterally being worse on the right. These could represent areas of inflammatory/infectious disease. Focal round lesions to suggest septic emboli are not clearly identified. 2. Edema seen at the right superficial chest and abdomen regions. The cause of for this asymmetric edema is not known. 3. Mild ascites. Ricco Fuentes MD Abdomen CT 10/13/16 Signed Impressions: Service Date/Time: Thursday, October 13, 2016 21:27 - CONCLUSION: 1. Mild ascites seen around the liver. 2. Superficial edema seen bilaterally in the subcutaneous tissues. This is asymmetric and being much more prominent on the right. 3. Small area of increased density seen independently in the gallbladder representing either small gallstones or milk of calcium. Ricco Fuentes MD Renal Ultrasound 10/12/16 Signed Impressions: Service Date/Time: September 20:54 - CONCLUSION: Normal appearance of the kidneys. Ricco Fuentes MD Objective Remarks gen: middle-aged, morbidly obese female, intubated and sedated. heent: perrl. mucous membranes moist. large tongue. neck: very large neck circumference. unable to assess jvd. trachea midline. left SC TLC site looks clean and dry. left IJ vascath in place chest: intubated, prvc, 40% fio2. equal chest rise. distant breath sounds. No rhonchi crackles or wheezing. cv: normal rate, regular rhythm. sinus by telemetry. abd: morbidly obese, soft, nontender, nondistended. extr: 2+ peripheral edema. LLE wrapped in kierra bandage. distal pulses 1+. skin: there is a desquamated rash which has areas of excoriation and scaling over the trunk and upper arms bilaterally. it does not [place]. neuro: Comatose initially on evaluation with no response to painful stimuli and no movement in either extremities. Deep tendon reflexes depressed generally, plantar response absent bilaterally. Subsequently patient had spontaneous eye opening however not following commands. A/P Assessment and Plan Assessment: 51yF with LLE cellulitis who presented with severe oligoanuric acute kidney injury and associated metabolic encephalopathy, septic shock, gram negative uzma bacteremia, fungal urinary tract infection, osteomyelitis, multi- organ system dysfunction. She improved following initiation of hemodialysis and antibiotics and was subsequently extubated on 10/16. Reconsulted for sudden change in mental status and hypotension on 10/18 with suspected stroke - stroke alert called following emergent intubation. Plan by systems: Neurologic: Suspected stroke alert with acute change in neurologic status Possible surreptitious benzodiazepine use Metabolic Encephalopathy secondary to Uremia and sepsis - frequent neuro checks. Currently not requiring any sedatives or narcotics even though intubated. -Stat head CT negative for bleed. Patient was administered IV thrombolysis following evaluation by neurology Dr. Burton in view of concern for brain stem CVA while awaiting MRI brain on 10/18. Subsequently MRI/MRA brain unremarkable. - Urine tox screen came back positive for benzodiazepines placing concern for surreptitious benzodiazepine use as she does not have any benzodiazepine listed on her APR. Respiratory: Obesity Hypoventilation Syndrome COPD Sleep Apnea Acute hypoxic and hypercarbic respiratory failure- persistent, no improvement. Pulmonary Edema - intubated 10/13 for progressive hypoxia - extubated 10/16. -Emergently intubated on 10/18 for airway protection due to altered mental status. - vent bundle, hob at 30 degrees, nebs - daily CPAP trials to decide extubation. Cardiovascular: Septic Shock- resolving. Severe Tricuspid Regurgitation - keep central line and art line. - needs continued volume removal via IHD - scheduled for dialysis on 10/19 - Hypotension resolved following 1 mg epinephrine IV push prior to intubation. Renal: Acute oligo anuric kidney injury requiring renal replacement therapy - nephrology consult - HD per nephrology. needs fluid removal -- Strict I/Os FEN/GI: Severe metabolic acidosis- resolved Hyperkalemia- resolved. Morbid Obesity -Insert OG tube and start tube feeds with Nepro, advance to goal as tolerated. Heme/ID: Chronic anemia- likely secondary to chronic disease Septic Shock LLE osteomyelitis Pseudomonas bacteremia Gram Positive Bacteremia Pseudomonas osteomyelitis Fungal Urinary Tract Infection - daily cbc -Recommend transfusions of PRBCs to keep hemoglobin above 7 g percent. 2 units PRBCs ordered by nephrology to be transfused with hemodialysis on 10/19. - follow up sensitivities - ID consult noted. - continue BSAbx. Endocrine: Diabetes -- SSI, medium scale, every 6 Prophylaxis: GI Prophylaxis pepcid DVT Prophylaxis -- SCDs Sub-cutaneous heparin (hold heparin for 24 hours following IV TPA) Lines: - 10/13 left SC TLC - 10/13 left IJ vascath - 10/13 right radial arterial line - Pablo Overall impression: Critically ill with encephalopathy with suspected stroke, sepsis and renal failure, requiring dialysis and mechanical ventilatory support. This patient remains critically ill with one or more organ systems which are or may become a threat to life. I have spent in excess of 35 minutes discontinuously in the care and management of this patient. This time is exclusive of procedures, and includes, but is not limited to, evaluation of the patient, review of the medical record, discussions with family, consultants, nursing staff, or respiratory therapy, and documentation in the medical record. Yahir Johnson MD Oct 19, 2016 08:20
[2016-10-19] MEDS: FAMOTIDINE 40 MG/5 ML LIQ 50 ML BTL NG SCH ×2 (08:52→22:23)
[2016-10-19] MEDS: SODIUM CHLORIDE 0.9% FLUSH 10 ML FLUSH IV FLUSH SCH ×2 (08:52→22:23)
--- NOTE | 2016-10-19 09:05 | HHI.NPPN ---
Subjective General Problems: Anemia Renal Failure: Acute Interval History became unresponsive yesterday, intubated. Given tPA on the suspicion of CVA. MRI negative for new stroke. Toxicology screen positive for benzodiazepines although she was not receiving any benzodiazepines. Patient was seen today during dialysis. On 3K, UF goal is 3 liters, BFR is 320 ml/min. Review of Systems General Constitutional: Fatigue Respiratory Lungs: SOB Cardiovascular Cardiac: Edema Objective Data Data Vital Signs Date Time Temp Pulse Resp B/P (MAP) Pulse Ox O2 Delivery O2 Flow Rate FiO2 10/19/16 08:47 98.3 88 11 143/64 100 10/19/16 08:36 98.3 83 11 149/65 100 10/19/16 07:43 100 40 10/19/16 07:42 40 10/19/16 07:38 100 40 10/19/16 07:00 94 Mechanical Ventilator 40 10/19/16 06:00 84 10/19/16 04:20 100 40 10/19/16 04:00 98.1 82 14 133/60 (84) 100 10/19/16 04:00 82 10/19/16 02:00 82 10/19/16 01:59 100 40 10/19/16 00:00 82 10/19/16 00:00 98.4 82 14 150/74 (99) 100 10/18/16 23:00 100 40 10/18/16 22:00 85 10/18/16 20:00 86 10/18/16 20:00 98.2 86 14 125/57 (79) 100 10/18/16 19:45 100 40 10/18/16 19:00 100 Mechanical Ventilator 40 10/18/16 17:55 100 100 10/18/16 16:00 98.0 90 14 120/64 (82) 100 10/18/16 15:20 100 100 10/18/16 15:04 100 100 10/18/16 12:00 98.7 84 16 150/63 (92) 100 10/18/16 09:33 100 Nasal Cannula 2.00 -: 10/19/16 0550 10/19/16 0550 Microbiology 10/18/16 Urine Culture, Received Pending Tubes & Lines: Vas-Cath, Shah Physical Exam General Appearance: Well Developed, Obese Appearance Remarks intubated. Eyes Eye Exam: Pupils Equal Throat Throat Exam: Oral Mucosa [place] & Moist Neck Neck Exam: Neck Supple Pulmonary Resp Exam: Breath Sounds Equal, No Distress, Rhonchi, Decreased Bases Cardiology CV Exam: Regular, Normal Sinus Rhythm, Good Perfusion Gastrointestinal/Abdomen GI Exam: Soft, Non-Tender, Distended GI Remarks obese. Musculoskeletal MS Exam: Unable to Ambulate Integumentary Skin Exam: Warm, Dry, Intact Skin Remarks skin desquamation. Extremeties Extremities Exam: Pedal Pulses Palpable, Moderate Edema, Pitting Edema, Dependent Edema Neurologic Neuro Remarks appears to be awake, appears to follow some commands. Psychiatric Psych Exam: Appropriate Responses Assessment/Plan Discussed Condition With: Patient Assessment Summary: FREDI/Acute Renal Failure Problem List: (1) Acute renal failure ICD Codes: N17.9 - Acute kidney failure, unspecified Status: Acute Plan: She apparently has a baseline creatinine of 1 FREDI from ATN, secondary to dehydration, also the possibility of vancomycin induced nephrotoxicity; may also be due to sepsis Oliguric. HD initiated on 10/13/16, HD today. Seen during dialysis. Avoid nephrotoxic agents such as iodinated contrast, aminoglycosides, NSAIDS if possible. Currently she is oligoanuric. (2) Sepsis ICD Codes: A41.9 - Sepsis, unspecified organism Plan: She Pseudomonas in the blood, and gram stain of the wound. Also has Ximena in the urine. Currently on Cefepime and Daptomycin. Also on Micafungin. She is thought to have left lower extremity osteomyelitis. ID is following PICC was removed on admission (3) Hyperkalemia ICD Codes: E87.5 - Hyperkalemia Status: Acute Plan: Resolved. (4) Metabolic acidosis ICD Codes: E87.2 - Acidosis Status: Acute Plan: improved. (5) Anemia ICD Codes: D64.9 - Anemia Status: Acute Plan: transfusion tomorrow with HD , 2 units Problem Qualifiers (1) Acute renal failure: Qualified Codes: N17.9 - Acute kidney failure, unspecified (2) Anemia: Qualified Codes: D64.9 - Anemia, unspecified Francisco Javier Quiros MD Oct 19, 2016 09:05
[2016-10-19] MEDS: LABETALOL HCL 100 MG/20 ML VIAL IV PUSH PRN (10:15)
[2016-10-19] MEDS ORDERED: DEXAMETHASONE SOD PHOS 4 MG/ML VIAL IV PUSH ONE (11:15)
[2016-10-19] MEDS ORDERED: RESP: RACEPINEPHRINE 2.25% 0.5 ML NEB ONE (13:19)
[2016-10-19] MEDS: CEFEPIME INJ 1,000 MG in SODIUM CHLORIDE 0.9% INJ 100 ML IV SCH (13:49)
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
--- NOTE | 2016-10-19 14:58 | HHI.PR ---
Review/Management Diagnosis tia vs encephalopathy from benzodiazepines Diagnosis/Plan: Subjective Subjective Comments No acute events reported Active Medications Current Medications Medications (Trade) Dose Ordered Sig/[place] Route Start Time Stop Time Status Last Admin (NS Flush) 2 ml UNSCH PRN IV FLUSH 10/12/16 20:15 (NS Flush) 2 ml BID IV FLUSH 10/12/16 21:00 10/18/16 21:00 (Narcan Inj) 0.4 mg UNSCH PRN IV 10/12/16 20:15 (Glucagon Inj) 1 mg UNSCH PRN OTHER 10/12/16 20:15 (Atrovent Neb) 0.5 mg Q6HR NEB NEB 10/13/16 04:00 10/19/16 09:47 (Atrovent Neb) 0.5 mg Q2HR NEB PRN NEB 10/13/16 00:45 (Lactinex) 1 tab TIDAC PO 10/13/16 08:00 10/18/16 12:42 (Brethine Inj) 1 mg UNSCH PRN SQ 10/13/16 07:30 (D50w (Vial) Inj) 25 ml UNSCH PRN IV PUSH 10/13/16 07:30 (NovoLIN R SUPPLEMENTAL SCALE) 1 Q6HR SQ 10/13/16 12:00 10/18/16 12:00 Norepinephrine Bitartrate 16 mg/ Dextrose 250 ml @ 1.87 mls/hr TITRATE PRN IV 10/13/16 08:00 Epinephrine HCl 8 mg/Dextrose 250 ml @ 5.62 mls/hr TITRATE PRN IV 10/13/16 09:00 10/13/16 09:07 Daptomycin 1000 mg/Sodium Chloride 100 ml @ 200 mls/hr Q48H IV 10/13/16 16:00 10/17/16 18:28 Cefepime HCl 1000 mg/Sodium Chloride 100 ml @ 200 mls/hr Q24H IV 10/13/16 15:00 10/19/16 13:49 Sodium Chloride 1,000 ml @ 0 mls/hr Q0M PRN OTHER 10/13/16 15:54 (Heparin Inj) 8,000 units UNSCH PRN IVF 10/13/16 16:00 Sodium Chloride 1,000 ml @ 200 mls/hr Q5H PRN IV 10/13/16 15:54 Sodium Chloride 1,000 ml @ 0 mls/hr Q0M PRN OTHER 10/13/16 15:54 (Mannitol Inj) 12.5 gm UNSCH PRN IV 10/13/16 16:00 (Albumin 25% Inj) 25 gm UNSCH PRN IV 10/13/16 16:00 10/14/16 08:19 (NS Flush) 5 ml UNSCH PRN IV FLUSH 10/13/16 16:00 (Heparin Inj) UNSCH PRN .XX 10/13/16 16:00 10/19/16 07:39 (Gentamicin (Dialysis) Inj) 20 mg UNSCH PRN IV 10/13/16 16:00 10/19/16 07:38 (Zofran Inj) 4 mg UNSCH PRN IV 10/13/16 16:00 (Tylenol) 650 mg UNSCH PRN PO 10/13/16 16:00 (Benadryl) 25 mg UNSCH PRN PO 10/13/16 16:00 10/18/16 10:38 (Nitrostat Sl) 0.4 mg UNSCH PRN SL 10/13/16 16:00 (Catapres) 0.1 mg UNSCH PRN PO 10/13/16 16:00 (Gelfoam 12 Mm/7 Mm Top) 1 foam UNSCH PRN TOP 10/13/16 16:00 10/15/16 10:39 Propofol 100 ml @ 4.128 mls/ hr TITRATE PRN IV 10/13/16 19:15 10/16/16 13:36 (Pepcid Liq) 10 mg BID NG 10/15/16 21:00 10/18/16 09:21 (Apresoline Inj) 20 mg Q3H PRN IV PUSH 10/16/16 15:45 10/19/16 02:31 (Trandate Inj) 20 mg Q3H PRN IV PUSH 10/16/16 15:45 10/19/16 10:15 Miscellaneous Information No Heparin, Warfarin, Aspir... UNSCH PRN XX 10/18/16 16:00 10/19/16 15:59 (Peridex 0.12% Liq) 15 ml BID@08,20 MT 10/18/16 20:00 10/19/16 08:00 Allergies Allergies Coded Allergies morphine (Unverified Allergy, Unknown, 09/26/16) vancomycin (Verified Adverse Reaction, Severe, Rash, 10/17/16) Exam I&O / VS 10/19/16 10/19/16 10/20/16 14:59 22:59 06:59 Intake Total 650 ml Output Total 3000 ml Balance -2350 ml Packed Cells 650 ml Hemodialysis 3000 ml Vital Signs Date Time Temp Pulse Resp B/P (MAP) Pulse Ox O2 Delivery O2 Flow Rate FiO2 10/19/16 13:25 100 Nasal Cannula 4 10/19/16 09:44 100 40 10/19/16 08:47 98.3 88 11 143/64 100 10/19/16 08:36 98.3 83 11 149/65 100 10/19/16 08:00 98.3 84 11 157/67 (97) 100 10/19/16 07:43 100 40 10/19/16 07:42 Nasal Cannula 40 10/19/16 07:38 100 40 10/19/16 07:00 94 Mechanical Ventilator 40 10/19/16 06:00 84 10/19/16 04:20 100 40 10/19/16 04:00 98.1 82 14 133/60 (84) 100 10/19/16 04:00 82 10/19/16 02:00 82 10/19/16 01:59 100 40 10/19/16 00:00 82 10/19/16 00:00 98.4 82 14 150/74 (99) 100 10/18/16 23:00 100 40 10/18/16 22:00 85 10/18/16 20:00 86 10/18/16 20:00 98.2 86 14 125/57 (79) 100 10/18/16 19:45 100 40 10/18/16 19:00 100 Mechanical Ventilator 40 10/18/16 17:55 100 100 10/18/16 16:00 98.0 90 14 120/64 (82) 100 10/18/16 15:20 100 100 10/18/16 15:04 100 100 Respiratory: Lungs CTA, Non-labored respirations, BS equal Cardiology: Normal rate, Regular Rhythm Exam Comments alert, follow commands, speech normal CN intact MOTOR 5/5 BUE Objective Micro and Labs Laboratory Tests Test 10/18/16 15:00 10/18/16 15:22 10/18/16 17:00 10/18/16 17:49 White Blood Count 13.9 Red Blood Count 2.53 Hemoglobin 8.0 Hematocrit 25.5 Mean Corpuscular Volume 100.5 Mean Corpuscular Hemoglobin 31.6 Mean Corpuscular Hemoglobin Concent 31.5 Red Cell Distribution Width 19.4 Platelet Count 249 Mean Platelet Volume 7.0 Blood Urea Nitrogen 47 Creatinine 4.64 Random Glucose 202 Total Protein 7.7 Albumin 2.1 Calcium Level 7.8 Alkaline Phosphatase 302 Aspartate Amino Transf (AST/SGOT) 30 Alanine Aminotransferase (ALT/SGPT) 21 Total Bilirubin 0.7 Sodium Level 142 Potassium Level 4.5 Chloride Level 107 Carbon Dioxide Level 19.1 Anion Gap 16 Estimat Glomerular Filtration Rate 10 Lactic Acid Level 6.8 Total Creatine Kinase 157 Creatine Kinase MB 3.1 Troponin I LESS THAN 0.02 Bedside Hemoglobin 8.8 Bedside Hematocrit 26.0 Prothrombin Time 14.7 Prothromb Time International Ratio 1.3 Activated Partial Thromboplast Time 43.4 Bedside Sodium 144 Bedside Potassium 4.5 Bedside Chloride 105 Bedside Blood Urea Nitrogen 43 Bedside Creatinine 4.4 Bedside Glucose 197 Urine Color LIGHT-RED Urine Turbidity CLOUDY Urine pH 5.5 Urine Specific [place] 1.020 Urine Protein 300 Urine Glucose (UA) NEG Urine Ketones TRACE Urine Occult Blood LARGE Urine Nitrite NEG Urine Bilirubin NEG Urine Urobilinogen LESS THAN 2.0 Urine Leukocyte Esterase LARGE Urine RBC Urine WBC Urine Squamous Epithelial Cells 5 Urine Renal Epithelial Cells 2 Urine Bacteria MOD Urine Yeast (Budding) MANY Microscopic Urinalysis Comment CULTURE INDICATED Urine Opiates Screen NEG Urine Barbiturates Screen NEG Urine Amphetamines Screen NEG Urine Benzodiazepines Screen POS Urine Cocaine Screen NEG Urine Cannabinoids Screen NEG Blood Gas Puncture Site ART LINE Blood Gas Patient Temperature 98.6 Blood Gas HCO3 21 Blood Gas Base Excess -3.9 Blood Gas Oxygen Saturation 98 Arterial Blood pH 7.33 Arterial Blood Partial Pressure CO2 41 Arterial Blood Partial Pressure O2 405 Arterial Blood Oxygen Content 10.7 Arterial Blood Carboxyhemoglobin 1.7 Arterial Blood Methemoglobin 1.1 Blood Gas Hemoglobin 7.0 Oxygen Delivery Device VENTILATOR Blood Gas Ventilator Setting [facility]/14/550/1.0/+5 Blood Gas Inspired Oxygen 100 Test 10/19/16 05:50 White Blood Count 14.0 Red Blood Count 2.37 Hemoglobin 7.6 Hematocrit 23.6 Mean Corpuscular Volume 99.4 Mean Corpuscular Hemoglobin 31.9 Mean Corpuscular Hemoglobin Concent 32.1 Red Cell Distribution Width 19.1 Platelet Count 257 Mean Platelet Volume 7.6 Blood Urea Nitrogen 52 Creatinine 4.74 Random Glucose 143 Calcium Level 8.1 Phosphorus Level 5.2 Sodium Level 141 Potassium Level 4.1 Chloride Level 105 Carbon Dioxide Level 21.9 Anion Gap 14 Estimat Glomerular Filtration Rate 10 Date/Time Source Procedure Growth Status 10/13/16 15:30 Blood Peripheral Aerobic Blood Culture - Final NO GROWTH IN 5 DAYS Complete 10/13/16 15:30 Blood Peripheral Anaerobic Blood Culture - Final NO GROWTH IN 5 DAYS Complete 10/13/16 06:40 Esophageal MRSA Surveillance Culture - Final NO MRSA ISOLATED Complete 10/18/16 17:00 Urine Catheterized Urine Urine Culture - Preliminary IMMATURE GROWTH - REINCUBATE Resulted 10/13/16 16:15 Wound Foot Gram Stain - Final Complete 10/13/16 16:15 Wound Culture - Final Pseudomonas Aeruginosa Complete Vadim Burton PhD Oct 19, 2016 14:58
--- NOTE | 2016-10-19 17:24 | RADRPT ---
EXAM DATE/TIME: 10/19/2016 17:01 [place] COMPARISON: CT BRAIN W/O CONTRAST, October 18, 2016, 15:29. INDICATIONS : Post TPA,stroke RADIATION DOSE: 40.43 CTDIvol (mGy) MEDICAL HISTORY : Cerebrovascular disease. Congestive heart failure. Hypertension.Diabetes SURGICAL HISTORY : None. ENCOUNTER: Initial ACUITY: 1 day PAIN SCALE: 0/10 LOCATION: cranial TECHNIQUE: Multiple contiguous axial images were obtained of the head. Using automated exposure control and adj ustment of the mA and/or kV according to patient size, radiation dose was kept as low as reasonably a chievable to obtain optimal diagnostic quality images. DICOM format image data is available electro nically for review and comparison. FINDINGS: CEREBRUM: The ventricles are normal for age. No evidence of midline shift, mass lesion, hemorrhage or acute in farction. No extra-axial fluid collections are seen. POSTERIOR FOSSA: The cerebellum and brainstem are intact. The 4th ventricle is midline. The cerebellopontine angle i s unremarkable. EXTRACRANIAL: A mucous retention cyst is again seen in the right maxillary antrum. There is now some fluid in the s phenoid sinuses. Mild mastoid disease is present. SKULL: The calvaria is intact. No evidence of skull fracture. CONCLUSION: No acute intracranial findings Ricco Kulkarni MD on October 19, 2016 at 17:20 Board Certified Radiologist. This report was verified electronically.
[2016-10-19] MEDS: DAPTOmycin INJ 1,000 MG in SODIUM CHLORIDE 0.9% INJ 100 ML IV SCH (17:31)
[2016-10-20] VITALS (13 sets, daily range): BP systolic 134–182; BP diastolic 63–102; PULSE 73–87; RESP 17–24; TEMP 97.3–98.8; O2SAT 95–100
[2016-10-20] MEDS: diphenhydrAMINE HCL 25 MG CAP PO PRN (01:04)
[2016-10-20] MEDS: RESP: IPRATROPIUM 0.5 MG/2.5 ML NEB NEB SCH ×4 (02:36→19:39)
[2016-10-20] MEDS: INSULIN NovoLIN REGULAR SUPPLEMENTAL SCALE SQ SCH ×4 (06:00→18:00)
[2016-10-20 06:17] LABS: HEMATOCRIT 27.6 % (35.0-46.0); MEAN CELL VOLUME 93.8 FL (80.0-100.0); MEAN CORPUSCULAR HEMOGLOBIN 29.7 PG (27.0-34.0); MEAN CORPUSCULAR HGB CONC 31.7 % (32.0-36.0); PLATELET COUNT 227 TH/MM3 (150-450); RED BLOOD COUNT 2.94 MIL/MM3 (4.00-5.30); RED CELL DISTRIBUTION WIDTH 21.8 % (11.6-17.2); REVIEW FLAG FINAL; WHITE BLOOD COUNT 14.6 TH/MM3 (4.0-11.0)
[2016-10-20 06:45] LABS: BICARBONATE 21.3 MEQ/L (21.0-32.0); POTASSIUM 4.1 MEQ/L (3.5-5.1)
[2016-10-20] MEDS: LACTOBACILLUS ACIDOPHILUS TAB PO SCH ×3 (08:00→17:00)
[2016-10-20] MEDS: CHLORHEXIDINE 0.12% (ORAL KIT) 15 ML CUP MT SCH ×2 (08:00→20:00)
[2016-10-20] MEDS: FAMOTIDINE 40 MG/5 ML LIQ 50 ML BTL NG SCH ×2 (09:00→21:00)
[2016-10-20] MEDS: SODIUM CHLORIDE 0.9% FLUSH 10 ML FLUSH IV FLUSH SCH ×2 (09:00→21:00)
--- NOTE | 2016-10-20 09:25 | HHI.CCPN ---
Subjective Remarks/Hospital Course Hospital Course: This is a 51yF from a SNF who was being treated for chronic LLE cellulitis with approximately 6 months of vancomycin through an indwelling right arm PICC line, who presents with worsening creatinine found at her SNF and altered mental status. On arrival to the ED, she had a Cr 7.7, has a chronic indwelling black catheter and has not had any urine per report in the last few days. Renal ultrasound was negative for hydronephrosis. She also has a excoriating rash over her trunk and arms. She was initially admitted to the floor, but rapid responsed for hypotension and altered mental status. On my evaluation in the ICU , she is very altered and a poor historian. She endorses needing to have a bowel movement, though she has a rectal tube in place with large amount of liquid stool. She is quite agitated and is preventing a full history and physical exam. On bedside critical care echocardiogram, she has a hyperdynamic LV, mildly dilated RV, and clinically significant tricuspid regurgitation with an estimated trans-tricuspid gradient of ~60 mmHg. There is no pericardial effusion. IVC is dilated at 2.5cm without any respiratory variation. Critical care medicine is consulted to evaluate and manage her hypotension and altered mental status. She is additionally severely acidotic with a pH of 7.1, base deficit 10, pco2 48: she is not compensating appropriately. The remainder of the history is found from chart review due to the patient's clinical condition. Subjective: 10/14: off vasopressors and inotropes, but remains encephalopathic, intubated. HD again today. [place] without overt endocarditis. blood cultures growing gram negative rods and CT leg with probable osteomyelitis. off pathway without much overall improvements. 10/15: vascath with significant oozing. pursestring suture placed. cultures growing pseudomonas in blood and wound, also with GPCs in blood and yeast in urine. failed cpap this morning for apnea and hypoxia. no significant improvements. 10/16: Tolerating SBTs, will work to extubate. 10/18: Called to reevaluate patient as she was doing well this morning however became suddenly unresponsive and hypotensive with systolic blood pressure in the 50s. I evaluated the patient immediately on being notified. Patient essentially obtunded/comatose with no response to painful stimuli. She was being ventilated with bag mask ventilation by respiratory therapist. Ordered fluid bolus stat and epinephrine 1 mg IV stat following which I proceeded with emergent intubation using glide scope. Her blood pressure responded following epinephrine injection and she was subsequently maintaining a systolic blood pressure in the 130s by A-line. No sedatives administered during intubation as patient essentially unresponsive with no gag response. Following intubation patient was placed on mechanical ventilation. Stat labs were sent. Fingerstick glucose 114. Stroke alert was called and patient was taken for stat head CT which was negative for bleed. Discussed the case with Dr. Burton from neurology who evaluated patient while she was in CAT scan as well. At that time patient had occasional eye opening however not following commands and not responding to painful stimuli with no movement in either extremities. Decision made to proceed with stat MRI/ MRA brain and to initiate thrombolysis with TPA which was administered while patient was waiting for MRI. Patient was reportedly doing well this morning awake and alert following commands. History was obtained by reviewing records and discussion with nursing staff. Patient unable to give any history in view of altered mental status. 10/19: Patient Orally intubated on mechanical ventilation overnight. Her neurologic status improved last evening. MRI/MRA brain were essentially unremarkable. A tox screen sent yesterday evening came back positive for benzodiazepines though she had no recorded benzodiazepines administered on the MAR bringing up suspicion for surreptitious benzodiazepine use as patient did have a visit her shortly prior to her change in mental status. She has not had any further hypotension. She awakens on verbal command and moves all 4 extremities. 10/20: Patient extubated on 10/19 and tolerated well. On nasal cannula currently. She is awake and alert. Wants to eat. Denies any shortness of breath. Complaining of itching. Knows she is at the hospital. Denies taking any exogenous benzodiazepine prior to her mental status change on 10/18. Was transfused 2 units PRBCs on 10/19 with hemodialysis. Objective Vital Signs Date Time Temp Pulse Resp B/P (MAP) Pulse Ox O2 Delivery O2 Flow Rate FiO2 10/20/16 06:00 82 10/20/16 04:00 98.2 18 143/74 (97) 98 10/19/16 20:08 21 10/19/16 19:00 Nasal Cannula 4.00 Intake and Output 10/20/16 10/20/16 10/21/16 08:00 16:00 00:00 Intake Total 100 ml Output Total 50 ml Balance -50 ml 100 ml Result Diagram: 10/20/16 0600 10/20/16 0600 Imaging Last 48 hours Impressions Head Magnetic Resonance Angiography 10/18/16 Signed Impressions: Service Date/Time: Tuesday, October 18, 2016 16:23 - CONCLUSION: Normal examination. Ricco Kulkarni MD Head CT 10/18/16 Signed Impressions: Service Date/Time: Tuesday, October 18, 2016 15:29 - CONCLUSION: 1. No acute intracranial abnormality. 2. Mucous retention cyst within the right maxillary sinus. The findings were called to Dr. Burton at 3:50 PM on 10/18/16. Raymond Smith MD Chest X-Ray 10/18/16 Signed Impressions: Service Date/Time: Tuesday, October 18, 2016 14:59 - CONCLUSION: 1. Mild to moderate pulmonary vascular congestion. 2. Cardiomegaly. 3. Elevation of the right hemidiaphragm. 4. Endotracheal tube in good position 3 cm above the elsie. 5. Left internal jugular VasCath and left subclavian central line are stable in positions. Raymond Smith MD Brain MRI 10/18/16 Signed Impressions: Service Date/Time: Tuesday, October 18, 2016 16:11 - CONCLUSION: Nonspecific white matter signal change in the left frontal region. No evidence of acute stroke. Ricco Kulkarni MD Last Impressions Upper Extremity Ultrasound 10/13/16 Signed Impressions: Service Date/Time: Thursday, October 13, 2016 09:17 - CONCLUSION: 1. No DVT. 2. Subcutaneous edema observed. Wilner Potter Jr., MD Lower Extremity Ultrasound 10/13/16 Signed Impressions: Service Date/Time: Thursday, October 13, 2016 08:57 - CONCLUSION: 1. Study has some limitations as detailed above. No DVT observed. Wilner Potter Jr., MD Lower Extremity CT 10/13/16 Signed Impressions: Service Date/Time: Thursday, October 13, 2016 21:35 - CONCLUSION: Ulcer at the region of the base of the fifth metatarsal. There appears to be chronic and acute changes in this region. The acute changes are worrisome for osteomyelitis at the base of the fifth metatarsal. Ricco Fuentes MD Chest X-Ray 10/13/16 Signed Impressions: Service Date/Time: Thursday, October 13, 2016 15:05 - CONCLUSION: Support apparatus in good position without pneumothorax. Roman Montiel MD FACR Chest CT 10/13/16 0000 Signed Impressions: Service Date/Time: Thursday, October 13, 2016 21:27 - CONCLUSION: 1. Patchy areas of consolidation seen bilaterally being worse on the right. These could represent areas of inflammatory/infectious disease. Focal round lesions to suggest septic emboli are not clearly identified. 2. Edema seen at the right superficial chest and abdomen regions. The cause of for this asymmetric edema is not known. 3. Mild ascites. Ricco Fuentes MD Abdomen CT 10/13/16 0000 Signed Impressions: Service Date/Time: Thursday, October 13, 2016 21:27 - CONCLUSION: 1. Mild ascites seen around the liver. 2. Superficial edema seen bilaterally in the subcutaneous tissues. This is asymmetric and being much more prominent on the right. 3. Small area of increased density seen independently in the gallbladder representing either small gallstones or milk of calcium. Ricco Fuentes MD Renal Ultrasound 10/12/16 0000 Signed Impressions: Service Date/Time: September 20:54 - CONCLUSION: Normal appearance of the kidneys. Ricco Fuentes MD Objective Remarks gen: middle-aged, morbidly obese female, laying in bed in no acute distress. heent: perrl. mucous membranes moist. large tongue. neck: very large neck circumference. unable to assess jvd. trachea midline. left SC TLC site looks clean and dry. left IJ vascath in place chest: equal chest rise. distant breath sounds. No rhonchi crackles or wheezing. On nasal cannula cv: normal rate, regular rhythm. sinus by telemetry. abd: morbidly obese, soft, nontender, nondistended. extr: 2+ peripheral edema. LLE wrapped in kierra bandage. distal pulses 1+. skin: there is a desquamated rash which has areas of excoriation and scaling over the trunk and upper arms bilaterally. it does not [place]. neuro: Awake alert, knows she is in the hospital. Knows it is 2017. Extraocular movements intact, legally blind however cannot identify 2 fingers. Deep tendon reflexes depressed generally, plantar response absent bilaterally. Moves all 4 extremities speech appears normal. A/P Assessment and Plan Assessment: 51yF with LLE cellulitis who presented with severe oligoanuric acute kidney injury and associated metabolic encephalopathy, septic shock, gram negative uzma bacteremia, fungal urinary tract infection, osteomyelitis, multi- organ system dysfunction. She improved following initiation of hemodialysis and antibiotics and was subsequently extubated on 10/16. Reconsulted for sudden change in mental status and hypotension on 10/18 with suspected stroke - stroke alert called following emergent intubation. Plan by systems: Neurologic: Suspected stroke alert with acute change in neurologic status Possible surreptitious benzodiazepine use Metabolic Encephalopathy secondary to Uremia and sepsis - neuro checks. -Stat head CT negative for bleed. Patient was administered IV thrombolysis following evaluation by neurology Dr. Burton in view of concern for brain stem CVA while awaiting MRI brain on 10/18. Subsequently MRI/MRA brain unremarkable. - Urine tox screen came back positive for benzodiazepines placing concern for surreptitious benzodiazepine use as she does not have any benzodiazepine listed on her MAR. Respiratory: Obesity Hypoventilation Syndrome COPD Sleep Apnea Acute hypoxic and hypercarbic respiratory failure- persistent, no improvement. Pulmonary Edema - intubated 10/13 for progressive hypoxia - extubated 10/16. -Emergently intubated on 10/18 for airway protection due to altered mental status. Extubated on 10/19, tolerating well - On nasal cannula currently Cardiovascular: Septic Shock- resolving. Severe Tricuspid Regurgitation - keep central line. Discontinue art line. - needs continued volume removal via IHD -dialyzed on 10/19 - Hypotension resolved following 1 mg epinephrine IV push prior to intubation. Renal: Acute oligo anuric kidney injury requiring renal replacement therapy - nephrology consult - HD per nephrology. needs fluid removal -- Strict I/Os FEN/GI: Severe metabolic acidosis- resolved Hyperkalemia- resolved. Morbid Obesity Advance by mouth diet Heme/ID: Chronic anemia- likely secondary to chronic disease Septic Shock LLE osteomyelitis Pseudomonas bacteremia Gram Positive Bacteremia Pseudomonas osteomyelitis Fungal Urinary Tract Infection - daily cbc -Recommend transfusions of PRBCs to keep hemoglobin above 7 g percent. 2 units PRBCs ordered by nephrology transfused with hemodialysis on 10/19. - follow up sensitivities - ID consult noted. - continue BSAbx. Endocrine: Diabetes -- SSI, medium scale, every 6 Prophylaxis: GI Prophylaxis pepcid DVT Prophylaxis -- SCDs Sub-cutaneous heparin (hold heparin for 24 hours following IV TPA) Lines: - 10/13 left SC TLC - 10/13 left IJ vascath - 10/13 right radial arterial line - Black Overall impression:sepsis and renal failure, requiring dialysis. Recent altered mental status-received TPA for suspected stroke and subsequently had positive benzodiazepine on tox screen and negative MRI MRA brain. We will consult hospitalist service for further medical management. Patient will be transferred out of ICU. Critical care will be signing off, please reconsult if needed. Yahir Johnson MD Oct 20, 2016 09:25
--- NOTE | 2016-10-20 10:26 | HHI.NPPN ---
Subjective General Problems: Anemia Renal Failure: Acute Interval History She was extubated yesterday. Dialyzed yesterday. (Lizy Pineda) Review of Systems General General Remarks unable to obtain (Lizy Pineda) Respiratory Lungs: SOB (Lizy Pineda) Cardiovascular Cardiac: Edema (Lizy Pineda) Objective Data Data 10/20/16 10/21/16 19:00 07:00 Intake Total 100 ml Balance 100 ml IV Total 100 ml Vital Signs Date Time Temp Pulse Resp B/P (MAP) Pulse Ox O2 Delivery O2 Flow Rate FiO2 10/20/16 08:47 100 10/20/16 08:00 98.8 80 17 140/80 (100) 99 10/20/16 08:00 80 10/20/16 07:00 97 Room Air 10/20/16 06:00 82 10/20/16 04:00 98.2 84 18 143/74 (97) 98 10/20/16 04:00 84 10/20/16 02:00 84 10/20/16 00:00 87 10/20/16 00:00 98.0 87 22 134/63 (86) 100 10/19/16 22:00 84 10/19/16 20:08 99 21 10/19/16 20:00 88 10/19/16 20:00 98.2 87 12 169/71 (103) 97 10/19/16 19:00 97 Nasal Cannula 4.00 10/19/16 16:00 98.1 87 12 158/72 (100) 100 10/19/16 13:25 100 Nasal Cannula 4 10/19/16 12:00 98.2 81 16 148/78 (101) 100 (Lizy Pineda) -: 10/20/16 0600 10/20/16 0600 Microbiology 10/19/16 Aerobic Blood Culture, Received Pending 10/19/16 Anaerobic Blood Culture, Received Pending 10/19/16 Aerobic Blood Culture, Received Pending 10/19/16 Anaerobic Blood Culture, Received Pending Imaging Last Impressions Head CT 10/19/16 1700 Signed Impressions: Service Date/Time: October 17:01 - CONCLUSION: No acute intracranial findings Ricco Kulkarni MD Head Magnetic Resonance Angiography 10/18/16 Signed Impressions: Service Date/Time: Tuesday, October 18, 2016 16:23 - CONCLUSION: Normal examination. Ricco Kulkarni MD Chest X-Ray 10/18/16 Signed Impressions: Service Date/Time: Tuesday, October 18, 2016 14:59 - CONCLUSION: 1. Mild to moderate pulmonary vascular congestion. 2. Cardiomegaly. 3. Elevation of the right hemidiaphragm. 4. Endotracheal tube in good position 3 cm above the elsie. 5. Left internal jugular VasCath and left subclavian central line are stable in positions. Raymond Smith MD Brain MRI 10/18/16 Signed Impressions: Service Date/Time: Tuesday, October 18, 2016 16:11 - CONCLUSION: Nonspecific white matter signal change in the left frontal region. No evidence of acute stroke. Ricco Kulkarni MD Ankle X-Ray 10/14/16 Signed Impressions: Service Date/Time: Friday, October 14, 2016 17:01 - CONCLUSION: Marked soft tissue swelling with subcutaneous calcifications. Negative for fracture. Roman Montiel MD FACR Upper Extremity Ultrasound 10/13/16 Signed Impressions: Service Date/Time: Thursday, October 13, 2016 09:17 - CONCLUSION: 1. No DVT. 2. Subcutaneous edema observed. Wilner Potter Jr., MD Lower Extremity Ultrasound 10/13/16 Signed Impressions: Service Date/Time: Thursday, October 13, 2016 08:57 - CONCLUSION: 1. Study has some limitations as detailed above. No DVT observed. Wilner Potter Jr., MD Lower Extremity CT 10/13/16 Signed Impressions: Service Date/Time: Thursday, October 13, 2016 21:35 - CONCLUSION: Ulcer at the region of the base of the fifth metatarsal. There appears to be chronic and acute changes in this region. The acute changes are worrisome for osteomyelitis at the base of the fifth metatarsal. Ricco Fuentes MD Chest CT 10/13/16 Signed Impressions: Service Date/Time: Thursday, October 13, 2016 21:27 - CONCLUSION: 1. Patchy areas of consolidation seen bilaterally being worse on the right. These could represent areas of inflammatory/infectious disease. Focal round lesions to suggest septic emboli are not clearly identified. 2. Edema seen at the right superficial chest and abdomen regions. The cause of for this asymmetric edema is not known. 3. Mild ascites. Ricco Fuentes MD Abdomen CT 10/13/16 0000 Signed Impressions: Service Date/Time: Thursday, October 13, 2016 21:27 - CONCLUSION: 1. Mild ascites seen around the liver. 2. Superficial edema seen bilaterally in the subcutaneous tissues. This is asymmetric and being much more prominent on the right. 3. Small area of increased density seen independently in the gallbladder representing either small gallstones or milk of calcium. Ricco Fuentes MD Renal Ultrasound 10/12/16 0000 Signed Impressions: Service Date/Time: September 20:54 - CONCLUSION: Normal appearance of the kidneys. Ricco Fuentes MD Tubes & Lines: Vas-Cath, Shah (Lizy Pineda B. ASSOCIATE DEAN) Physical Exam General Appearance: Well Developed, Comfortable, Obese (Wayne Pinedaon B. ASSOCIATE DEAN) Eyes Eye Exam: Pupils Equal (Wayne Pinedaon B. ASSOCIATE DEAN) Throat Throat Exam: Oral Mucosa [place] & Moist (MiriamLizy B. ASSOCIATE DEAN) Neck Neck Exam: Neck Supple (MiriamLizy B. ASSOCIATE DEAN) Pulmonary Resp Exam: Breath Sounds Equal, No Distress, Rhonchi, Decreased Bases (MiriamLizy B. ASSOCIATE DEAN) Cardiology CV Exam: Regular, Normal Sinus Rhythm, Good Perfusion (MiriamLizy B. ASSOCIATE DEAN) Gastrointestinal/Abdomen GI Exam: Soft, Non-Tender, Bowel Sounds Present, Distended (MiriamLizy B. ASSOCIATE DEAN) Musculoskeletal MS Exam: Normal Tone, Unable to Ambulate (MiriamLizy B. ASSOCIATE DEAN) Integumentary Skin Exam: Warm, Dry, Intact (MiriamLizy B. ASSOCIATE DEAN) Extremeties Extremities Exam: Pedal Pulses Palpable, Moderate Edema, Pitting Edema, Dependent Edema (MiriamLizy B. ASSOCIATE DEAN) Neurologic Neuro Exam: Awake, Obtunded (Wayne Pinedaon B. ASSOCIATE DEAN) Psychiatric Psych Exam: Appropriate Responses (Lizy Pineda B. ASSOCIATE DEAN) Assessment/Plan Discussed Condition With: Patient Assessment Summary: FREDI/Acute Renal Failure Problem List: (1) Acute renal failure ICD Codes: N17.9 - Acute kidney failure, unspecified Status: Acute Plan: She apparently has a baseline creatinine of 1 FREDI from ATN, secondary to dehydration, also the possibility of vancomycin induced nephrotoxicity; may also be due to sepsis Oligoanuric. HD initiated on 10/13/16, on TTS HD schedule 3L UF yesterday repeat labs in AM, HD if needed monitor for renal recovery Avoid nephrotoxic agents such as iodinated contrast, aminoglycosides, NSAIDS if possible. (2) Sepsis ICD Codes: A41.9 - Sepsis, unspecified organism Plan: She Pseudomonas in the blood, and gram stain of the wound. Also has Ximena in the urine. Currently on Cefepime and Daptomycin. Off Micafungin. She is thought to have left lower extremity osteomyelitis. ID is following PICC was removed on admission (3) Hyperkalemia ICD Codes: E87.5 - Hyperkalemia Status: Acute Plan: Resolved. (4) Metabolic acidosis ICD Codes: E87.2 - Acidosis Status: Acute Plan: improved. (5) Anemia ICD Codes: D64.9 - Anemia Status: Acute Plan: Hb improved after 2 units PRBC transfusion with HD yesterda (Lizy Pineda) Plan patient was seen and examined. Agree with above assessment and plan. Dialysis tomorrow. Patient has been extubated. (Francisco Javier Quiros MD) Problem Qualifiers (1) Acute renal failure: Qualified Codes: N17.9 - Acute kidney failure, unspecified (2) Anemia: Qualified Codes: D64.9 - Anemia, unspecified Lizy Pineda Oct 20, 2016 10:26 Francisco Javier Quiros MD Oct 20, 2016 14:04
[2016-10-20] MEDS: CEFEPIME INJ 1,000 MG in SODIUM CHLORIDE 0.9% INJ 100 ML IV SCH (16:30)
--- NOTE | 2016-10-20 19:35 | PD.POD ---
Subjective Podiatric Problems Left 5th metatarsal OM. Pain scale used: 0-10 numeric scale Pain score: 1 Past Med/Surg/Social History Past Medical History Endocrine: REPORTS HX OF: Diabetes mellitus Cardiovascular: REPORTS HX OF: Hyperlipidemia, Hypertension Neurologic: REPORTS HX OF: Stroke Past Surgical History Musculoskeletal: DENIES HX OF: Joint replacement, Other musculoskeletal srg Social History Smoking Status: Never Smoker Objective Vital Signs Vital Signs Date Time Temp Pulse Resp B/P (MAP) Pulse Ox O2 Delivery O2 Flow Rate FiO2 10/20/16 18:00 74 10/20/16 16:00 73 10/20/16 16:00 97.3 74 18 145/76 (99) 96 10/20/16 14:00 76 10/20/16 12:00 82 10/20/16 12:00 98.3 82 24 164/77 (106) 100 10/20/16 10:00 80 10/20/16 08:47 100 10/20/16 08:00 98.8 80 17 140/80 (100) 99 10/20/16 08:00 80 10/20/16 07:00 97 Room Air 10/20/16 06:00 82 10/20/16 04:00 98.2 84 18 143/74 (97) 98 10/20/16 04:00 84 10/20/16 02:00 84 10/20/16 00:00 87 10/20/16 00:00 98.0 87 22 134/63 (86) 100 10/19/16 22:00 84 10/19/16 20:08 99 21 10/19/16 20:00 88 10/19/16 20:00 98.2 87 12 169/71 (103) 97 Coded Allergies: morphine (Unverified Allergy, Unknown, 09/26/16) vancomycin (Verified Adverse Reaction, Severe, Rash, 10/17/16) Other Results Laboratory Tests Test 10/19/16 05:50 10/20/16 06:00 White Blood Count 14.0 TH/MM3 14.6 TH/MM3 Red Blood Count 2.37 MIL/MM3 2.94 MIL/MM3 Hemoglobin 7.6 GM/DL 8.8 GM/DL Hematocrit 23.6 % 27.6 % Mean Corpuscular Volume 99.4 FL 93.8 FL Mean Corpuscular Hemoglobin 31.9 PG 29.7 PG Mean Corpuscular Hemoglobin Concent 32.1 % 31.7 % Red Cell Distribution Width 19.1 % 21.8 % Platelet Count 257 TH/MM3 227 TH/MM3 Mean Platelet Volume 7.6 FL 6.9 FL Blood Urea Nitrogen 52 MG/DL 40 MG/DL Creatinine 4.74 MG/DL 4.03 MG/DL Random Glucose 143 MG/DL 129 MG/DL Calcium Level 8.1 MG/DL 8.4 MG/DL Phosphorus Level 5.2 MG/DL Sodium Level 141 MEQ/L 141 MEQ/L Potassium Level 4.1 MEQ/L 4.1 MEQ/L Chloride Level 105 MEQ/L 103 MEQ/L Carbon Dioxide Level 21.9 MEQ/L 21.3 MEQ/L Anion Gap 14 MEQ/L 17 MEQ/L Estimat Glomerular Filtration Rate 10 ML/MIN 12 ML/MIN Exam-Podiatry Dermatological Exam Ulcers: Location/Measurements Left LE No fluctuance, no erythema, no purulence at the left 5th ray base. Intact packing. No POP. LE warm to warm. Assessment & Plan Diagnosis: (1) Osteomyelitis of ankle or foot, left, acute ICD Codes: M86.172 - Other acute osteomyelitis, left ankle and foot (2) Diabetic neuropathy ICD Codes: E11.40 - Diabetic neuropathy Status: Chronic A/P Discussed with Dr Johnson on 10/17/16. Recommended abx treatment as the patient is high risk. Continue with daily dressing changes and packing with Betadine soaked 1/4 in iodoform. Will continue f/u while inhouse. Cyndy Morrissey DPM Oct 20, 2016 19:35
[2016-10-21] VITALS (21 sets, daily range): BP systolic 171–186; BP diastolic 81–107; PULSE 75–82; RESP 18–20; TEMP 97.4–98.6; O2SAT 97–100
[2016-10-21] MEDS: RESP: IPRATROPIUM 0.5 MG/2.5 ML NEB NEB SCH ×4 (05:46→21:04)
[2016-10-21] MEDS: LACTOBACILLUS ACIDOPHILUS TAB PO SCH ×3 (07:51→17:00)
[2016-10-21] MEDS: INSULIN NovoLIN REGULAR SUPPLEMENTAL SCALE SQ SCH ×4 (07:55→17:48)
[2016-10-21] MEDS: CHLORHEXIDINE 0.12% (ORAL KIT) 15 ML CUP MT SCH ×2 (08:00→20:00)
[2016-10-21] MEDS: FAMOTIDINE 40 MG/5 ML LIQ 50 ML BTL NG SCH (09:00)
[2016-10-21] MEDS: SODIUM CHLORIDE 0.9% FLUSH 10 ML FLUSH IV FLUSH SCH ×2 (09:00→20:36)
--- NOTE | 2016-10-21 10:03 | HHI.NPPN ---
Subjective General Problems: Anemia Renal Failure: Acute Review of Systems General General Remarks unable to obtain Respiratory Lungs: SOB Cardiovascular Cardiac: Edema Objective Data Data Vital Signs Date Time Temp Pulse Resp B/P (MAP) Pulse Ox O2 Delivery O2 Flow Rate FiO2 10/21/16 06:00 79 10/21/16 04:00 78 10/21/16 04:00 98.2 82 20 171/92 (118) 98 10/21/16 00:00 79 10/21/16 00:00 98.6 79 20 176/91 (119) 99 10/20/16 20:00 98.6 79 20 182/102 (128) 99 Arterial Line 10/20/16 20:00 Room Air 10/20/16 19:40 95 10/20/16 18:00 74 10/20/16 16:00 73 10/20/16 16:00 97.3 74 18 145/76 (99) 96 10/20/16 14:00 76 10/20/16 12:00 82 10/20/16 12:00 98.3 82 24 164/77 (106) 100 -: 10/20/16 0600 10/20/16 0600 Tubes & Lines: Vas-Cath, Shah Physical Exam General Appearance: Well Developed, Comfortable, Obese Eyes Eye Exam: Pupils Equal Throat Throat Exam: Oral Mucosa [place] & Moist Neck Neck Exam: Neck Supple Pulmonary Resp Exam: Breath Sounds Equal, No Distress, Rhonchi, Decreased Bases Cardiology CV Exam: Regular, Normal Sinus Rhythm, Good Perfusion Gastrointestinal/Abdomen GI Exam: Soft, Non-Tender, Bowel Sounds Present, Distended Musculoskeletal MS Exam: Normal Tone, Unable to Ambulate Integumentary Skin Exam: Warm, Dry, Intact Extremeties Extremities Exam: Pedal Pulses Palpable, Moderate Edema, Pitting Edema, Dependent Edema Neurologic Neuro Exam: Awake, Obtunded Psychiatric Psych Exam: Appropriate Responses Assessment/Plan Discussed Condition With: Patient Assessment Summary: FREDI/Acute Renal Failure Problem List: (1) Acute renal failure ICD Codes: N17.9 - Acute kidney failure, unspecified Status: Acute Plan: She apparently has a baseline creatinine of 1 FREDI from ATN, secondary to dehydration, also the possibility of vancomycin induced nephrotoxicity; may also be due to sepsis Oligoanuric. HD initiated on 10/13/16, on TTS HD schedule 3L UF on 3 K bath tolerating it Avoid nephrotoxic agents such as iodinated contrast, aminoglycosides, NSAIDS if possible. (2) Sepsis ICD Codes: A41.9 - Sepsis, unspecified organism Plan: She Pseudomonas in the blood, and gram stain of the wound. Also has Ximena in the urine. Currently on Cefepime and Daptomycin. Off Micafungin. She is thought to have left lower extremity osteomyelitis. ID is following PICC was removed on admission (3) Hyperkalemia ICD Codes: E87.5 - Hyperkalemia Status: Acute Plan: Resolved. (4) Metabolic acidosis ICD Codes: E87.2 - Acidosis Status: Acute Plan: improved. (5) Anemia ICD Codes: D64.9 - Anemia Status: Acute Plan: Hb improved Plan p Problem Qualifiers (1) Acute renal failure: Qualified Codes: N17.9 - Acute kidney failure, unspecified (2) Anemia: Qualified Codes: D64.9 - Anemia, unspecified Rafael Briggs MD Oct 21, 2016 10:03
[2016-10-21] MEDS: HEPARIN SODIUM - IV 10,000 UNITS/10 ML VIAL PRN (10:43)
[2016-10-21] MEDS: GENTAMICIN SULFATE (DIALYSIS USE ONLY) 20 MG/2 ML VIAL IV PRN (10:43)
[2016-10-21] MEDS: diphenhydrAMINE HCL 25 MG CAP PO PRN ×2 (13:40→20:36)
[2016-10-21] MEDS: CEFEPIME INJ 1,000 MG in SODIUM CHLORIDE 0.9% INJ 100 ML IV SCH (13:41)
[2016-10-21] MEDS ORDERED: diphenhydrAMINE HCL 25 MG CAP PO PRN (15:30)
[2016-10-21] MEDS: DAPTOmycin INJ 1,000 MG in SODIUM CHLORIDE 0.9% INJ 100 ML IV SCH (16:00)
--- NOTE | 2016-10-21 20:30 | HHI.PR ---
Subjective Remarks Patient seen this afternoon around 1 PM. She denies any chest pain or shortness of breath. She reports itching all over, unchanged from yesterday. Objective Vital Signs Date Time Temp Pulse Resp B/P (MAP) Pulse Ox O2 Delivery O2 Flow Rate FiO2 10/21/16 19:50 98 Room Air 10/21/16 19:50 97.4 82 18 184/107 (132) 98 10/21/16 19:50 81 10/21/16 18:00 80 10/21/16 17:00 78 10/21/16 16:00 98.6 80 20 176/89 (118) 98 10/21/16 16:00 78 10/21/16 15:00 78 10/21/16 13:00 80 10/21/16 12:00 78 10/21/16 12:00 98.2 20 171/81 (111) 99 10/21/16 11:05 100 21 10/21/16 11:00 78 10/21/16 10:00 78 10/21/16 09:00 76 10/21/16 08:00 98.4 81 20 186/94 (124) 100 10/21/16 08:00 80 10/21/16 07:00 80 10/21/16 07:00 100 Room Air 10/21/16 06:00 79 10/21/16 04:00 78 10/21/16 04:00 98.2 82 20 171/92 (118) 98 10/21/16 00:00 79 10/21/16 00:00 98.6 79 20 176/91 (119) 99 I/O 10/20/16 10/20/16 10/20/16 10/21/16 10/21/16 10/21/16 07:00 15:00 23:00 07:00 15:00 23:00 Intake Total 100 ml 650 ml 480 ml 920 ml Output Total 50 ml 150 ml 3000 ml 200 ml Balance -50 ml 100 ml 650 ml 330 ml -3000 ml 720 ml Intake Oral 650 ml 480 ml 720 ml IV Total 100 ml 200 ml Output Urine Total 50 ml 150 ml 200 ml Hemodialysis 3000 ml # Bowel Movements 0 0 0 Result Diagram: 10/20/16 0610/20/16 06 Objective Remarks GENERAL: 51-year-old female lying in bed. She is alert. SKIN: Warm and dry.patient with driving, flaking skin from previous rash. No erythema or lesions noted. HEAD: Normocephalic. EYES: No scleral icterus. No injection or drainage. NECK: Supple, trachea midline. No JVD. CARDIOVASCULAR: Regular rate and rhythm without murmurs, gallops, or rubs. RESPIRATORY: Breath sounds equal bilaterally. No accessory muscle use. GASTROINTESTINAL: Abdomen soft, non-tender, nondistended. MUSCULOSKELETAL: No cyanosis. 2+ bilateral lower extremity edema. Weeping sinus of left foot. No surrounding erythema. BACK: Nontender without obvious deformity. No CVA tenderness. A/P Assessment and Plan == 10/21/16. //Left lower extremity osteomyelitis. Podiatry says patient is too high risk for surgery. Continue IV antibiotics as per infectious disease. Appreciate assistance. //Episode of acute decompensation 10/18. CT, MRI/MRA negative for acute findings. Initially placed on pressors. Tox screen positive for benzos. Visitors prevented from visiting patient. //End-stage renal disease on hemodialysis. Appreciate nephrology assistance. //Continued itching. Benadryl ordered when necessary. Assessment: 51yF with LLE cellulitis who presented with severe oligoanuric acute kidney injury and associated metabolic encephalopathy, septic shock, gram negative uzma bacteremia, fungal urinary tract infection, osteomyelitis, multi- organ system dysfunction. She improved following initiation of hemodialysis and antibiotics and was subsequently extubated on 10/16. Reconsulted for sudden change in mental status and hypotension on 10/18 with suspected stroke - stroke alert called following emergent intubation. Plan by systems: Neurologic: Suspected stroke alert with acute change in neurologic status Possible surreptitious benzodiazepine use Metabolic Encephalopathy secondary to Uremia and sepsis - neuro checks. -Stat head CT negative for bleed. Patient was administered IV thrombolysis following evaluation by neurology Dr. Burton in view of concern for brain stem CVA while awaiting MRI brain on 10/18. Subsequently MRI/MRA brain unremarkable. - Urine tox screen came back positive for benzodiazepines placing concern for surreptitious benzodiazepine use as she does not have any benzodiazepine listed on her MAR. Respiratory: Obesity Hypoventilation Syndrome COPD Sleep Apnea Acute hypoxic and hypercarbic respiratory failure- persistent, no improvement. Pulmonary Edema - intubated 10/13 for progressive hypoxia - extubated 10/16. -Emergently intubated on 10/18 for airway protection due to altered mental status. Extubated on 10/19, tolerating well - On nasal cannula currently Cardiovascular: Septic Shock- resolving. Severe Tricuspid Regurgitation - keep central line. Discontinue art line. - needs continued volume removal via IHD -dialyzed on 10/19 - Hypotension resolved following 1 mg epinephrine IV push prior to intubation. Renal: Acute oligo anuric kidney injury requiring renal replacement therapy - nephrology consult - HD per nephrology. needs fluid removal -- Strict I/Os FEN/GI: Severe metabolic acidosis- resolved Hyperkalemia- resolved. Morbid Obesity Advance by mouth diet Heme/ID: Chronic anemia- likely secondary to chronic disease Septic Shock LLE osteomyelitis Pseudomonas bacteremia Gram Positive Bacteremia Pseudomonas osteomyelitis Fungal Urinary Tract Infection - daily cbc -Recommend transfusions of PRBCs to keep hemoglobin above 7 g percent. 2 units PRBCs ordered by nephrology transfused with hemodialysis on 10/19. - follow up sensitivities - ID consult noted. - continue BSAbx. Endocrine: Diabetes -- SSI, medium scale, every 6 Prophylaxis: GI Prophylaxis pepcid DVT Prophylaxis -- SCDs Sub-cutaneous heparin (hold heparin for 24 hours following IV TPA) Lines: - 10/13 left SC TLC - 10/13 left IJ vascath - 10/13 right radial arterial line - Shah Overall impression:sepsis and renal failure, requiring dialysis. Recent altered mental status-received TPA for suspected stroke and subsequently had positive benzodiazepine on tox screen and negative MRI MRA brain. Discharge Planning will likely need SNF. -We'll need IV antibiotics as per infectious disease. Appreciate case management assistance. Ray Bonilla MD Oct 21, 2016 20:30
[2016-10-21] MEDS: cloNIDine HCL 0.1 MG TAB PO PRN (20:35)
[2016-10-21] MEDS: FAMOTIDINE 20 MG TAB PO SCH (20:36)
[2016-10-21] MEDS: LABETALOL HCL 100 MG/20 ML VIAL IV PUSH PRN (22:05)
[2016-10-21] MEDS: CALAMINE LOTION 180 APPLIC/180 ML BTL TOPICAL PRN (23:47)
[2016-10-22] VITALS (28 sets, daily range): BP systolic 165–191; BP diastolic 91–107; PULSE 76–84; RESP 18–20; TEMP 97–97.9; O2SAT 72–98
[2016-10-22] MEDS: RESP: IPRATROPIUM 0.5 MG/2.5 ML NEB NEB SCH ×4 (03:00→22:08)
[2016-10-22] MEDS: hydrALAZINE HCL 20 MG/ML VIAL IV PUSH PRN ×4 (04:37→23:18)
[2016-10-22 05:03] LABS: BICARBONATE 22.8 MEQ/L (21.0-32.0); MAGNESIUM 2.1 MG/DL (1.5-2.5); POTASSIUM 4.4 MEQ/L (3.5-5.1)
[2016-10-22 05:23] LABS: AUTOMATED NEUTROPHIL # 8.7 TH/MM3 (1.8-7.7); BASOPHIL % 0.4 % (0.0-2.0); EOSINOPHIL # 0.4 TH/MM3 (0-0.4); EOSINOPHIL % 3.8 % (0.0-4.0); HEMATOCRIT 28.5 % (35.0-46.0); LYMPH % 16.9 % (9.0-44.0); MEAN CELL VOLUME 94.1 FL (80.0-100.0); MEAN CORPUSCULAR HEMOGLOBIN 29.9 PG (27.0-34.0); MEAN CORPUSCULAR HGB CONC 31.7 % (32.0-36.0); MONO % 6.2 % (0.0-8.0); NEUT % 72.7 % (16.0-70.0); PLATELET COUNT 223 TH/MM3 (150-450); RED BLOOD COUNT 3.03 MIL/MM3 (4.00-5.30); RED CELL DISTRIBUTION WIDTH 20.3 % (11.6-17.2); WHITE BLOOD COUNT 11.9 TH/MM3 (4.0-11.0)
[2016-10-22 05:31] LABS: HEMO FLAGS AUTO DIFF
[2016-10-22] MEDS: INSULIN NovoLIN REGULAR SUPPLEMENTAL SCALE SQ SCH ×5 (06:00→23:24)
[2016-10-22] MEDS: CHLORHEXIDINE 0.12% (ORAL KIT) 15 ML CUP MT SCH ×2 (08:00→20:00)
[2016-10-22] MEDS: LACTOBACILLUS ACIDOPHILUS TAB PO SCH ×3 (08:26→17:46)
[2016-10-22] MEDS: SODIUM CHLORIDE 0.9% FLUSH 10 ML FLUSH IV FLUSH SCH ×2 (08:26→20:38)
[2016-10-22] MEDS: FAMOTIDINE 20 MG TAB PO SCH ×2 (08:26→20:37)
[2016-10-22 10:35] LABS: SCAN/DIFF AUTO DIFF CONFIRMED
[2016-10-22] MEDS: CEFEPIME INJ 1,000 MG in SODIUM CHLORIDE 0.9% INJ 100 ML IV SCH (15:22)
--- NOTE | 2016-10-22 20:24 | HHI.PR ---
Subjective Remarks Patient seen this morning around 10:30 AM. Denies any chest pain or shortness of breath. She reports continued itching all over not relieved by Benadryl or calamine lotion. Objective Vital Signs Date Time Temp Pulse Resp B/P (MAP) Pulse Ox O2 Delivery O2 Flow Rate FiO2 10/22/16 20:02 172/99 (123) 10/22/16 20:00 83 10/22/16 19:25 98 Room Air 10/22/16 19:25 97.0 84 18 184/107 (132) 97 10/22/16 19:00 82 10/22/16 18:01 80 10/22/16 17:00 80 10/22/16 16:09 79 10/22/16 15:00 80 20 175/102 (126) 95 10/22/16 15:00 80 10/22/16 15:00 95 Nasal Cannula 10/22/16 14:04 76 10/22/16 13:00 77 10/22/16 12:00 78 10/22/16 11:00 78 20 168/97 (120) 98 10/22/16 11:00 78 10/22/16 11:00 98 Room Air 10/22/16 10:46 95 10/22/16 10:00 77 10/22/16 09:00 78 10/22/16 08:00 78 10/22/16 07:00 95 Room Air 10/22/16 07:00 97.9 79 20 165/94 (117) 95 10/22/16 07:00 79 10/22/16 06:00 77 10/22/16 05:00 82 10/22/16 04:00 78 10/22/16 03:00 98 Room Air 10/22/16 03:00 79 10/22/16 03:00 97.9 80 18 191/91 (124) 95 10/22/16 02:00 78 10/22/16 01:00 78 10/22/16 00:00 77 10/21/16 23:00 97.8 82 18 184/107 (132) 98 10/21/16 23:00 98 Room Air 10/21/16 23:00 75 10/21/16 22:00 80 10/21/16 21:07 97 21 10/21/16 21:00 82 I/O 910/21/16 10/21/16 10/22/16 10/22/16 10/22/16 07:00 15:00 23:00 07:00 15:00 23:00 Intake Total 480 ml 920 ml 240 ml 200 ml Output Total 150 ml 3000 ml 200 ml 125 ml 125 ml Balance 330 ml -3000 ml 720 ml 115 ml 75 ml Intake Oral 480 ml 720 ml 240 ml IV Total 200 ml 200 ml Output Urine Total 150 ml 200 ml 125 ml 125 ml Hemodialysis 3000 ml # Bowel Movements 0 0 0 Result Diagram: 10/22/1640510/22/16405 Objective Remarks GENERAL: 51-year-old female lying in bed. She is alert. SKIN: Warm and dry.patient with driving, flaking skin from previous rash improving, however currently calamine lotion. Still No erythema or lesions noted. HEAD: Normocephalic. EYES: No scleral icterus. No injection or drainage. NECK: Supple, trachea midline. No JVD. CARDIOVASCULAR: Regular rate and rhythm without murmurs, gallops, or rubs. RESPIRATORY: Breath sounds equal bilaterally. No accessory muscle use. GASTROINTESTINAL: Abdomen soft, non-tender, nondistended. MUSCULOSKELETAL: No cyanosis. 2+ bilateral lower extremity edema. Weeping sinus of left foot. No surrounding erythema. BACK: Nontender without obvious deformity. No CVA tenderness. A/P Assessment and Plan == 10/22/16. //Left lower extremity osteomyelitis. No change. Continue IV antibiotics. //Intractable itching. Resistant to diphenhydramine and calamine. Order LFTs to rule out liver pathology. Previously with alkaline phosphatase elevated, however this is expected to be secondary to bone due to osteomyelitis. //Possible stage I sacral ulcer. As per nursing. Consult wound care. //Discontinue central line. Assessment: 51yF with LLE cellulitis who presented with severe oligoanuric acute kidney injury and associated metabolic encephalopathy, septic shock, gram negative uzma bacteremia, fungal urinary tract infection, osteomyelitis, multi- organ system dysfunction. She improved following initiation of hemodialysis and antibiotics and was subsequently extubated on 10/16. Reconsulted for sudden change in mental status and hypotension on 10/18 with suspected stroke - stroke alert called following emergent intubation. Plan by systems: Neurologic: //Suspected stroke alert with acute change in neurologic status //Possible surreptitious benzodiazepine use //Metabolic Encephalopathy secondary to Uremia and sepsis - neuro checks. -Stat head CT negative for bleed. Patient was administered IV thrombolysis following evaluation by neurology Dr. Burton in view of concern for brain stem CVA while awaiting MRI brain on 10/18. Subsequently MRI/MRA brain unremarkable. - Urine tox screen came back positive for benzodiazepines placing concern for surreptitious benzodiazepine use as she does not have any benzodiazepine listed on her MAR. -specific Visitors prevented from visiting patient. Respiratory: //Obesity Hypoventilation Syndrome //COPD //Sleep Apnea //Acute hypoxic and hypercarbic respiratory failure- persistent, no improvement. //Pulmonary Edema - intubated 10/13 for progressive hypoxia - extubated 10/16. -Emergently intubated on 10/18 for airway protection due to altered mental status. Extubated on 10/19, tolerating well - On nasal cannula currently Cardiovascular: //Septic Shock- resolving. //Severe Tricuspid Regurgitation - keep central line. Discontinue art line. - needs continued volume removal via IHD -dialyzed on 10/19 - Hypotension resolved following 1 mg epinephrine IV push prior to intubation. Renal: //Acute oligo anuric kidney injury requiring renal replacement therapy - nephrology consult - HD per nephrology. needs fluid removal -- Strict I/Os FEN/GI: //Severe metabolic acidosis- resolved //Hyperkalemia- resolved. //Morbid Obesity Advance by mouth diet Heme/ID: //Chronic anemia- likely secondary to chronic disease //Septic Shock //LLE osteomyelitis //Pseudomonas bacteremia //Gram Positive Bacteremia //Pseudomonas osteomyelitis //Fungal Urinary Tract Infection - daily cbc -Recommend transfusions of PRBCs to keep hemoglobin above 7 g percent. 2 units PRBCs ordered by nephrology transfused with hemodialysis on 10/19. - follow up sensitivities - ID consult noted. - continue BSAbx. Endocrine: //Diabetes -- SSI, medium scale, every 6 Prophylaxis: //GI Prophylaxis pepcid DVT Prophylaxis -- SCDs Sub-cutaneous heparin (hold heparin for 24 hours following IV TPA) Lines: - 10/13 left SC TLC - 10/13 left IJ vascath - 10/13 right radial arterial line - Shah Overall impression:sepsis and renal failure, requiring dialysis. Recent altered mental status-received TPA for suspected stroke and subsequently had positive benzodiazepine on tox screen and negative MRI MRA brain. Discharge Planning will likely need SNF. -We'll need IV antibiotics as per infectious disease. Appreciate case management assistance. Ray Bonilla MD Oct 22, 2016 20:23
[2016-10-22] MEDS: diphenhydrAMINE HCL 25 MG CAP PO PRN (20:37)
[2016-10-22] MEDS: cloNIDine HCL 0.1 MG TAB PO PRN (20:38)
[2016-10-22 21:50] LABS: ALT (GPT) 19 U/L (10-53); AST (GOT) 28 U/L (15-37)
[2016-10-22 22:15] LABS: ALKALINE PHOSPHATASE 279 U/L (45-117); INDIRECT BILIRUBIN 0.5 MG/DL (0.0-0.8); TOTAL BILIRUBIN ADULT 0.9 MG/DL (0.2-1.0)
[2016-10-23] VITALS (26 sets, daily range): BP systolic 150–169; BP diastolic 77–97; PULSE 69–87; RESP 18–20; TEMP 97.5–98.1; O2SAT 96–100
[2016-10-23] MEDS: RESP: IPRATROPIUM 0.5 MG/2.5 ML NEB NEB SCH ×4 (04:00→22:09)
[2016-10-23] MEDS: INSULIN NovoLIN REGULAR SUPPLEMENTAL SCALE SQ SCH ×3 (06:00→18:09)
[2016-10-23] MEDS: CHLORHEXIDINE 0.12% (ORAL KIT) 15 ML CUP MT SCH ×2 (08:00→20:00)
[2016-10-23] MEDS: THIAMINE HCL 100 MG TAB PO SCH (08:47)
[2016-10-23] MEDS: LACTOBACILLUS ACIDOPHILUS TAB PO SCH ×3 (08:47→16:41)
[2016-10-23] MEDS: FAMOTIDINE 20 MG TAB PO SCH ×2 (08:47→20:35)
[2016-10-23] MEDS: SODIUM CHLORIDE 0.9% FLUSH 10 ML FLUSH IV FLUSH SCH ×2 (08:48→20:35)
[2016-10-23] MEDS: hydrALAZINE HCL 20 MG/ML VIAL IV PUSH PRN ×2 (08:56→20:35)
--- NOTE | 2016-10-23 10:20 | RADRPT ---
EXAM DATE/TIME: 10/23/2016 09:45 [facility] COMPARISON: CT ABDOMEN W/O CONTRAST, October 13, 2016, 21:27. INDICATIONS : Increased lab values. MEDICAL HISTORY : Congestive heart failure. Hypercholesterolemia. Inflammatory bowel disease. CVA. Numbness, bilateral legs. Hyperlipidemia. Afib. HTN. COPD. Sleep apnea. Pulmonary embolism. GERD. Renal failure. UTI. Gwen lulitis. Arthritis. Diabetes. GI Bleed. Anemia. Depression. Anticoagulant therapy. SURGICAL HISTORY : Cataracts with bilateral prosthesis. ENCOUNTER: Initial ACUITY: 1 day PAIN SCORE: Nonresponsive. LOCATION: Bilateral upper quadrant MEASUREMENTS: LIVER: 19.0 cm length COMMON DUCT: 2 mm RIGHT KIDNEY: 11.8 x 6.5 x 5.8 cm SPLEEN: 12.6 cm length FINDINGS: LIVER: Unremarkable echotexture without focal lesion or ductal dilatation. COMMON DUCT: No intraluminal mass or stone visualized. GALLBLADDER: Significant sludge is identified in the gallbladder. Small gallstones suspected on CT the abdomen are not clearly visualized. PANCREAS: The visualized portions are within normal limits. RIGHT KIDNEY: No hydronephrosis, stone or mass. SPLEEN: No focal lesion. CONCLUSION: 1. Gallbladder sludge 2. No evidence of biliary duct dilatation 3. Otherwise unremarkable exam. Jaiden Weston MD on October 23, 2016 at 10:15 Board Certified Radiologist. This report was verified electronically.
[2016-10-23] MEDS ORDERED: MAGNESIUM HYDROXIDE SUSP 30 ML CUP PO ONE (10:30)
[2016-10-23] MEDS ORDERED: DOCUSATE SODIUM 50 MG/SENNA 8.6 MG TAB PO ONE (10:30)
--- NOTE | 2016-10-23 14:48 | HHI.NPPN ---
Subjective General Problems: Anemia Renal Failure: Acute Interval History last dialysis on Sunday. Repeat labs tomorrow. Monitor urine output. Appears to be oliguric. Review of Systems General General Remarks unable to obtain Respiratory Lungs: SOB Objective Data Data Vital Signs Date Time Temp Pulse Resp B/P (MAP) Pulse Ox O2 Delivery O2 Flow Rate FiO2 10/23/16 14:07 83 10/23/16 13:00 82 10/23/16 12:00 82 10/23/16 11:00 83 10/23/16 11:00 84 20 159/88 (111) 98 10/23/16 11:00 98 Room Air 10/23/16 10:27 98 10/23/16 10:00 82 10/23/16 09:00 87 10/23/16 08:00 81 10/23/16 07:00 82 10/23/16 07:00 96 Room Air 10/23/16 07:00 98.1 80 20 158/77 (104) 96 10/23/16 06:00 69 10/23/16 05:26 82 10/23/16 04:00 81 10/23/16 03:00 98 Room Air 10/23/16 03:00 97.6 81 18 153/81 (105) 96 10/23/16 03:00 81 10/23/16 02:00 83 10/23/16 01:00 81 10/23/16 00:00 83 10/22/16 23:00 81 10/22/16 23:00 83 10/22/16 23:00 97.6 81 18 179/98 (125) 95 10/22/16 23:00 98 Room Air 10/22/16 22:08 98 21 10/22/16 22:00 83 10/22/16 21:00 81 10/22/16 20:02 172/99 (123) 10/22/16 20:00 83 10/22/16 19:25 98 Room Air 10/22/16 19:25 97.0 84 18 184/107 (132) 97 10/22/16 19:00 82 10/22/16 18:01 80 10/22/16 17:00 80 10/22/16 16:09 79 10/22/16 15:00 80 20 175/102 (126) 95 10/22/16 15:00 80 10/22/16 15:00 95 Nasal Cannula -: 10/22/16 0406 10/22/16 0406 Tubes & Lines: Vas-Cath, Shah Physical Exam General Appearance: Well Developed, Comfortable, Obese Appearance Remarks intubated. Eyes Eye Exam: Pupils Equal Throat Throat Exam: Oral Mucosa [place] & Moist Neck Neck Exam: Neck Supple Pulmonary Resp Exam: Breath Sounds Equal, No Distress, Rhonchi, Decreased Bases Cardiology CV Exam: Regular, Normal Sinus Rhythm, Good Perfusion Gastrointestinal/Abdomen GI Exam: Soft, Non-Tender, Bowel Sounds Present, Distended GI Remarks obese. Musculoskeletal MS Exam: Normal Tone, Unable to Ambulate Integumentary Skin Exam: Warm, Dry, Intact Skin Remarks skin desquamation. Extremeties Extremities Exam: Pedal Pulses Palpable, Moderate Edema, Pitting Edema, Dependent Edema Neurologic Neuro Exam: Awake, Obtunded Neuro Remarks appears to be awake, appears to follow some commands. Psychiatric Psych Exam: Appropriate Responses Assessment/Plan Discussed Condition With: Patient Assessment Summary: FREDI/Acute Renal Failure Problem List: (1) Acute renal failure ICD Codes: N17.9 - Acute kidney failure, unspecified Status: Acute Plan: She apparently has a baseline creatinine of 1 FREDI from ATN, secondary to dehydration, also the possibility of vancomycin induced nephrotoxicity; may also be due to sepsis Oligoanuric. HD initiated on 10/13/16, on TTS HD schedule Avoid nephrotoxic agents such as iodinated contrast, aminoglycosides, NSAIDS if possible. (2) Sepsis ICD Codes: A41.9 - Sepsis, unspecified organism Plan: She Pseudomonas in the blood, and gram stain of the wound. Also has Ximena in the urine. Currently on Cefepime and Daptomycin. Off Micafungin. She is thought to have left lower extremity osteomyelitis. ID is following PICC was removed on admission (3) Hyperkalemia ICD Codes: E87.5 - Hyperkalemia Status: Acute Plan: Resolved. (4) Metabolic acidosis ICD Codes: E87.2 - Acidosis Status: Acute Plan: improved. (5) Anemia ICD Codes: D64.9 - Anemia Status: Acute Plan: Hb improved Plan p Problem Qualifiers (1) Acute renal failure: Qualified Codes: N17.9 - Acute kidney failure, unspecified (2) Anemia: Qualified Codes: D64.9 - Anemia, unspecified Francisco Javier Quiros MD Oct 23, 2016 14:48
[2016-10-23] MEDS: CEFEPIME INJ 1,000 MG in SODIUM CHLORIDE 0.9% INJ 100 ML IV SCH (15:00)
[2016-10-23] MEDS: diphenhydrAMINE HCL 50 MG CAP PO PRN (15:00)
[2016-10-23] MEDS: DAPTOmycin INJ 1,000 MG in SODIUM CHLORIDE 0.9% INJ 100 ML IV SCH (16:41)
--- NOTE | 2016-10-23 17:42 | HHI.PR ---
Subjective Remarks Shouldn't seen this morning around 11 AM. Denies any chest pain or shortness of breath. Reports continued itching. Objective Vital Signs Date Time Temp Pulse Resp B/P (MAP) Pulse Ox O2 Delivery O2 Flow Rate FiO2 10/23/16 16:48 98 10/23/16 15:00 97 Room Air 10/23/16 15:00 82 10/23/16 15:00 83 20 150/82 (104) 97 10/23/16 14:07 83 10/23/16 13:00 82 10/23/16 12:00 82 10/23/16 11:00 83 10/23/16 11:00 84 20 159/88 (111) 98 10/23/16 11:00 98 Room Air 10/23/16 10:27 98 10/23/16 10:00 82 10/23/16 09:00 87 10/23/16 08:00 81 10/23/16 07:00 82 10/23/16 07:00 96 Room Air 10/23/16 07:00 98.1 80 20 158/77 (104) 96 10/23/16 06:00 69 10/23/16 05:26 82 10/23/16 04:00 81 10/23/16 03:00 98 Room Air 10/23/16 03:00 97.6 81 18 153/81 (105) 96 10/23/16 03:00 81 10/23/16 02:00 83 10/23/16 01:00 81 10/23/16 00:00 83 10/22/16 23:00 81 10/22/16 23:00 83 10/22/16 23:00 97.6 81 18 179/98 (125) 95 10/22/16 23:00 98 Room Air 10/22/16 22:08 98 21 10/22/16 22:00 83 10/22/16 21:00 81 10/22/16 20:02 172/99 (123) 10/22/16 20:00 83 10/22/16 19:25 98 Room Air 10/22/16 19:25 97.0 84 18 184/107 (132) 97 10/22/16 19:00 82 10/22/16 18:01 80 I/O 10/22/16 10/22/16 10/22/16 10/23/16 10/23/16 9/11/17 07:00 15:00 23:00 07:00 15:00 23:00 Intake Total 240 ml 200 ml 200 ml 1160 ml Output Total 125 ml 125 ml 125 ml 100 ml Balance 115 ml 75 ml 75 ml 1060 ml Intake Oral 240 ml 200 ml 960 ml IV Total 200 ml 200 ml Output Urine Total 125 ml 125 ml 125 ml 100 ml # Bowel Movements 0 Result Diagram: 10/22/16 0406 10/22/16 0406 Imaging Last Impressions Liver Ultrasound 10/23/16 0000 Signed Impressions: Service Date/Time: Sunday, October 23, 2016 09:45 - CONCLUSION: 1. Gallbladder sludge 2. No evidence of biliary duct dilatation 3. Otherwise unremarkable exam. Jaiden Weston MD Head CT 10/19/16 1700 Signed Impressions: Service Date/Time: October 17:01 - CONCLUSION: No acute intracranial findings Ricco Kulkarni MD Head Magnetic Resonance Angiography 10/18/16 0000 Signed Impressions: Service Date/Time: Tuesday, October 18, 2016 16:23 - CONCLUSION: Normal examination. Ricco Kulkarni MD Chest X-Ray 10/18/16 0000 Signed Impressions: Service Date/Time: Tuesday, October 18, 2016 14:59 - CONCLUSION: 1. Mild to moderate pulmonary vascular congestion. 2. Cardiomegaly. 3. Elevation of the right hemidiaphragm. 4. Endotracheal tube in good position 3 cm above the elsie. 5. Left internal jugular VasCath and left subclavian central line are stable in positions. Raymond Smith MD Brain MRI 10/18/16 0000 Signed Impressions: Service Date/Time: Tuesday, October 18, 2016 16:11 - CONCLUSION: Nonspecific white matter signal change in the left frontal region. No evidence of acute stroke. Ricco Kulkarni MD Ankle X-Ray 10/14/16 0000 Signed Impressions: Service Date/Time: Friday, October 14, 2016 17:01 - CONCLUSION: Marked soft tissue swelling with subcutaneous calcifications. Negative for fracture. Roman Montiel MD FACR Upper Extremity Ultrasound 10/13/16 0000 Signed Impressions: Service Date/Time: Thursday, October 13, 2016 09:17 - CONCLUSION: 1. No DVT. 2. Subcutaneous edema observed. Wilner Potter Jr., MD Lower Extremity Ultrasound 10/13/16 Signed Impressions: Service Date/Time: Thursday, October 13, 2016 08:57 - CONCLUSION: 1. Study has some limitations as detailed above. No DVT observed. Wilenr Potter Jr., MD Lower Extremity CT 10/13/16 Signed Impressions: Service Date/Time: Thursday, October 13, 2016 21:35 - CONCLUSION: Ulcer at the region of the base of the fifth metatarsal. There appears to be chronic and acute changes in this region. The acute changes are worrisome for osteomyelitis at the base of the fifth metatarsal. Ricco Fuentes MD Chest CT 10/13/16 Signed Impressions: Service Date/Time: Thursday, October 13, 2016 21:27 - CONCLUSION: 1. Patchy areas of consolidation seen bilaterally being worse on the right. These could represent areas of inflammatory/infectious disease. Focal round lesions to suggest septic emboli are not clearly identified. 2. Edema seen at the right superficial chest and abdomen regions. The cause of for this asymmetric edema is not known. 3. Mild ascites. Ricco Fuentes MD Abdomen CT 10/13/16 Signed Impressions: Service Date/Time: Thursday, October 13, 2016 21:27 - CONCLUSION: 1. Mild ascites seen around the liver. 2. Superficial edema seen bilaterally in the subcutaneous tissues. This is asymmetric and being much more prominent on the right. 3. Small area of increased density seen independently in the gallbladder representing either small gallstones or milk of calcium. Ricco Fuentes MD Renal Ultrasound 10/12/16 Signed Impressions: Service Date/Time: September 20:54 - CONCLUSION: Normal appearance of the kidneys. Ricco Fuentes MD Objective Remarks GENERAL: 51-year-old female lying in bed. She is alert. SKIN: Warm and dry.patient with driving, flaking skin from previous rash improved, with flaky skin, improving. Still No erythema or lesions noted. HEAD: Normocephalic. EYES: No scleral icterus. No injection or drainage. NECK: Supple, trachea midline. No JVD. CARDIOVASCULAR: Regular rate and rhythm without murmurs, gallops, or rubs. RESPIRATORY: Breath sounds equal bilaterally. No accessory muscle use. GASTROINTESTINAL: Abdomen soft, non-tender, nondistended. MUSCULOSKELETAL: No cyanosis. 2+ bilateral lower extremity edema. Weeping sinus of left foot. No surrounding erythema. BACK: Nontender without obvious deformity. No CVA tenderness. A/P Assessment and Plan == 10/23/16. //Left lower extremity osteomyelitis. No change. Continue IV antibiotics. //Intractable itching. Resistant to diphenhydramine and calamine. Reviewed Ultrasound with sludge in gallbladder, however no intrahepatic ductal dilation noted. Alkaline phosphatase elevated, however likely secondary to osteomyelitis. Increased diphenhydramine. //Possible stage I sacral ulcer. Follow-up wound care nurse recommendations. //Vitamin D deficiency. 25 vitamin D 9.5. Order vitamin D replacement. 1, 25 hydroxy vitamin D level pending, likely low secondary to kidney disease. I clearly will need to start calcitriol. Appreciate nephrology assistance. Assessment: 51yF with LLE cellulitis who presented with severe oligoanuric acute kidney injury and associated metabolic encephalopathy, septic shock, gram negative uzma bacteremia, fungal urinary tract infection, osteomyelitis, multi- organ system dysfunction. She improved following initiation of hemodialysis and antibiotics and was subsequently extubated on 10/16. Reconsulted for sudden change in mental status and hypotension on 10/18 with suspected stroke - stroke alert called following emergent intubation. Plan by systems: Neurologic: //Suspected stroke alert with acute change in neurologic status //Possible surreptitious benzodiazepine use //Metabolic Encephalopathy secondary to Uremia and sepsis - neuro checks. -Stat head CT negative for bleed. Patient was administered IV thrombolysis following evaluation by neurology Dr. Burton in view of concern for brain stem CVA while awaiting MRI brain on 10/18. Subsequently MRI/MRA brain unremarkable. - Urine tox screen came back positive for benzodiazepines placing concern for surreptitious benzodiazepine use as she does not have any benzodiazepine listed on her MAR. -specific Visitors prevented from visiting patient. Respiratory: //Obesity Hypoventilation Syndrome //COPD //Sleep Apnea //Acute hypoxic and hypercarbic respiratory failure- persistent, no improvement. //Pulmonary Edema - intubated 10/13 for progressive hypoxia - extubated 10/16. -Emergently intubated on 10/18 for airway protection due to altered mental status. Extubated on 10/19, tolerating well - On nasal cannula currently Cardiovascular: //Septic Shock- resolving. //Severe Tricuspid Regurgitation - keep central line. Discontinue art line. - needs continued volume removal via IHD -dialyzed on 10/19 - Hypotension resolved following 1 mg epinephrine IV push prior to intubation. Renal: //Acute oligo anuric kidney injury requiring renal replacement therapy - nephrology consult - HD per nephrology. needs fluid removal -- Strict I/Os FEN/GI: //Severe metabolic acidosis- resolved //Hyperkalemia- resolved. //Morbid Obesity Advance by mouth diet Heme/ID: //Chronic anemia- likely secondary to chronic disease //Septic Shock //LLE osteomyelitis //Pseudomonas bacteremia //Gram Positive Bacteremia //Pseudomonas osteomyelitis //Fungal Urinary Tract Infection - daily cbc -Recommend transfusions of PRBCs to keep hemoglobin above 7 g percent. 2 units PRBCs ordered by nephrology transfused with hemodialysis on 10/19. - follow up sensitivities - ID consult noted. - continue BSAbx. Endocrine: //Diabetes -- SSI, medium scale, every 6 Prophylaxis: //GI Prophylaxis pepcid DVT Prophylaxis -- SCDs Sub-cutaneous heparin (hold heparin for 24 hours following IV TPA) Lines: - 10/13 left SC TLC - 10/13 left IJ vascath - 10/13 right radial arterial line - Shah Overall impression:sepsis and renal failure, requiring dialysis. Recent altered mental status-received TPA for suspected stroke and subsequently had positive benzodiazepine on tox screen and negative MRI MRA brain. Discharge Planning will likely need SNF. -We'll need IV antibiotics as per infectious disease. Appreciate case management assistance. Ray Bonilla MD Oct 23, 2016 17:42
[2016-10-23] MEDS ORDERED: CHOLECALCIFEROL (VIT D3) 5000 UNIT CAP PO ONE (17:45)
[2016-10-23] MEDS: DOCUSATE SODIUM 50 MG/SENNA 8.6 MG TAB PO SCH (20:35)
[2016-10-23] MEDS: LACTIC ACID (AMMONIUM LACTATE) 12% LOTION 225 GM BTL TOPICAL SCH (21:16)
[2016-10-24] VITALS (28 sets, daily range): BP systolic 156–188; BP diastolic 73–92; PULSE 79–97; RESP 16–21; TEMP 97.5–97.9; O2SAT 97–100
[2016-10-24] MEDS: RESP: IPRATROPIUM 0.5 MG/2.5 ML NEB NEB SCH ×3 (04:00→21:43)
[2016-10-24] MEDS: diphenhydrAMINE HCL 50 MG CAP PO PRN ×2 (04:43→20:45)
[2016-10-24] MEDS: INSULIN NovoLIN REGULAR SUPPLEMENTAL SCALE SQ SCH ×4 (06:00→18:00)
[2016-10-24] MEDS: LACTOBACILLUS ACIDOPHILUS TAB PO SCH ×3 (08:00→18:15)
--- NOTE | 2016-10-24 09:02 | HHI.NPPN ---
Subjective General Problems: Anemia Renal Failure: Acute Interval History Seen during dialysis. Remains oliguric. (Lizy Pineda) Review of Systems General Constitutional: Fatigue (Lizy Pineda) Ears, Nose, & Throat ENT Remarks loss of appetite (Lizy Pineda) Respiratory Lungs: SOB (Lizy Pineda) Cardiovascular Cardiac: Edema (Lizy Pineda) Endocrine Endocrine: Thirst (Lizy Pineda) Skin Skin: Ulcers Skin Remarks left foot (Lizy Pineda) Objective Data Data Vital Signs Date Time Temp Pulse Resp B/P (MAP) Pulse Ox O2 Delivery O2 Flow Rate FiO2 10/24/16 08:10 97.8 81 16 158/86 (110) 97 10/24/16 08:10 98 Room Air 10/24/16 06:00 80 10/24/16 05:00 82 10/24/16 04:00 81 10/24/16 03:03 99 Room Air 10/24/16 03:00 79 10/24/16 03:00 97.5 83 18 156/87 (110) 100 10/24/16 02:00 80 10/24/16 01:00 82 10/24/16 00:00 81 10/23/16 23:00 83 10/23/16 23:00 97.5 84 18 165/93 (117) 99 10/23/16 23:00 99 Room Air 10/23/16 22:12 100 10/23/16 22:00 84 10/23/16 21:00 83 10/23/16 20:00 84 10/23/16 19:15 98 Room Air 10/23/16 19:15 83 10/23/16 19:15 97.6 86 18 169/97 (121) 100 10/23/16 18:00 84 10/23/16 17:00 86 10/23/16 16:48 98 10/23/16 15:00 97 Room Air 10/23/16 15:00 82 10/23/16 15:00 83 20 150/82 (104) 97 10/23/16 14:07 83 10/23/16 13:00 82 10/23/16 12:00 82 10/23/16 11:00 83 10/23/16 11:00 84 20 159/88 (111) 98 10/23/16 11:00 98 Room Air 10/23/16 10:27 98 10/23/16 10:00 82 10/23/16 09:00 87 (Lizy Pineda) -: 10/22/16 0406 10/22/16 0406 Imaging Last 72 hours Impressions Liver Ultrasound 10/23/16 0000 Signed Impressions: Service Date/Time: Sunday, October 23, 2016 09:45 - CONCLUSION: 1. Gallbladder sludge 2. No evidence of biliary duct dilatation 3. Otherwise unremarkable exam. Jaiden Weston MD Tubes & Lines: Vas-Cath, Shah (Lizy Pineda) Physical Exam General Appearance: Well Developed, No Acute Distress, Comfortable, Obese (Lizy Pineda) Eyes Eye Exam: Pupils Equal (Lizy Pineda) Throat Throat Exam: Oral Mucosa [place] & Moist (Lizy Pineda) Neck Neck Exam: Neck Supple (Lizy Pineda) Pulmonary Resp Exam: Breath Sounds Equal, No Distress, Rhonchi, Decreased Bases (Lizy Pineda) Cardiology CV Exam: Regular, Normal Sinus Rhythm, Good Perfusion (Lizy Pineda) Gastrointestinal/Abdomen GI Exam: Soft, Non-Tender, Bowel Sounds Present (Lizy Pineda) Musculoskeletal MS Exam: Joints Intact, Normal Tone, Unable to Ambulate (Lizy Pineda) Integumentary Skin Exam: Warm, Dry, Intact Skin Remarks left foot ulcer (Lizy Pineda) Extremeties Extremities Exam: Pedal Pulses Palpable, Moderate Edema, Dependent Edema (Lizy Pineda) Neurologic Neuro Exam: Alert, Awake, Speech Clear, Moving All Extremities (Lizy Pineda) Psychiatric Psych Exam: Appropriate Responses (Lizy Pineda) Assessment/Plan Discussed Condition With: Patient Assessment Summary: FREDI/Acute Renal Failure Problem List: (1) Acute renal failure ICD Codes: N17.9 - Acute kidney failure, unspecified Status: Acute Plan: She apparently has a baseline creatinine of 1 FREDI from ATN, secondary to dehydration, also the possibility of vancomycin induced nephrotoxicity; may also be due to sepsis Oligoanuric. HD initiated on 10/13/16, on TTS HD schedule Seen during dialysis today on a 2K, 350 BFR, goal 3L Continue to monitor renal panel, await renal recovery Obtain daily in AM, HD on if needed Avoid nephrotoxic agents such as iodinated contrast, aminoglycosides, NSAIDS if possible. (2) Sepsis ICD Codes: A41.9 - Sepsis, unspecified organism Plan: + Pseudomonas in the blood, and gram stain of the wound. Also has Ximena in the urine. Currently on Cefepime and Daptomycin. Possible left lower extremity osteomyelitis. ID is following PICC removed on admission (3) Hyperkalemia ICD Codes: E87.5 - Hyperkalemia Status: Acute Plan: Resolved. (4) Metabolic acidosis ICD Codes: E87.2 - Acidosis Status: Acute Plan: Corrected, monitor (5) Anemia ICD Codes: D64.9 - Anemia Status: Acute Plan: Hb improved, monitor Plan p (Lizy Pineda) Problem List: (1) Acute renal failure ICD Codes: N17.9 - Acute kidney failure, unspecified Status: Acute Plan: She apparently has a baseline creatinine of 1 FREDI from ATN, secondary to dehydration, also the possibility of vancomycin induced nephrotoxicity; may also be due to sepsis Oligoanuric. HD initiated on 10/13/16, on TTS HD schedule Seen during dialysis today on a 2K, 350 BFR, goal 3L Continue to monitor renal panel, await renal recovery Obtain labs daily in AM, HD on if needed Avoid nephrotoxic agents such as iodinated contrast, aminoglycosides, NSAIDS if possible. (2) Sepsis ICD Codes: A41.9 - Sepsis, unspecified organism Plan: + Pseudomonas in the blood, and gram stain of the wound. Also has Ximena in the urine. Currently on Cefepime and Daptomycin. Possible left lower extremity osteomyelitis. ID is following PICC removed on admission (3) Hyperkalemia ICD Codes: E87.5 - Hyperkalemia Status: Acute Plan: Resolved. (4) Metabolic acidosis ICD Codes: E87.2 - Acidosis Status: Acute Plan: Corrected, monitor (5) Anemia ICD Codes: D64.9 - Anemia Status: Acute Plan: Hb improved, monitor Plan patient was seen and examined. Seen during dialysis. Oliguric. Monitor for signs of renal recovery. Avoid nephrotoxic agents. (Francisco Javier Quiros MD) Problem Qualifiers (1) Acute renal failure: Qualified Codes: N17.9 - Acute kidney failure, unspecified (2) Anemia: Qualified Codes: D64.9 - Anemia, unspecified Lizy Pineda Oct 24, 2016 09:02 Francisco Javier Quiros MD Oct 24, 2016 10:21
[2016-10-24 10:30] LABS: BICARBONATE 23.1 MEQ/L (21.0-32.0)
[2016-10-24 10:31] LABS: POTASSIUM 5.2 MEQ/L (3.5-5.1)
[2016-10-24] MEDS: HEPARIN SODIUM - IV 10,000 UNITS/10 ML VIAL PRN (11:40)
[2016-10-24] MEDS: GENTAMICIN SULFATE (DIALYSIS USE ONLY) 20 MG/2 ML VIAL IV PRN (11:41)
[2016-10-24] MEDS: CHOLECALCIFEROL (VIT D3) 5000 UNIT CAP PO SCH (14:01)
[2016-10-24] MEDS: SODIUM CHLORIDE 0.9% FLUSH 10 ML FLUSH IV FLUSH SCH ×2 (14:01→21:00)
[2016-10-24] MEDS: DOCUSATE SODIUM 50 MG/SENNA 8.6 MG TAB PO SCH ×2 (14:02→20:46)
[2016-10-24] MEDS: LACTIC ACID (AMMONIUM LACTATE) 12% LOTION 225 GM BTL TOPICAL SCH ×2 (14:02→20:48)
[2016-10-24] MEDS: FAMOTIDINE 20 MG TAB PO SCH ×2 (14:03→20:46)
[2016-10-24] MEDS: CHLORHEXIDINE 0.12% (ORAL KIT) 15 ML CUP MT SCH ×2 (14:03→20:00)
[2016-10-24] MEDS: THIAMINE HCL 100 MG TAB PO SCH (14:04)
--- NOTE | 2016-10-24 15:34 | PD.WCN.NOT ---
Wound Consult Description: Consult received for pressure ulcer to sacrum. Sacral ulcer, stage 1 [address] Doctor Chad. Communicated with: NATHALIA Chang [facility] and call placed to Doctor Chad for orders Recommendation: Please cleanse Bilateral buttock and bilateral posterior upper thighs with soap and water, pat dry. Apply Calazime barrier cream BID and PRN Additional Information: Patient seen on [facility] for evaluation of possible pressure ulcer to sacrum. Patient positioned self to R side and is observed scratching skin on L buttock and L hip. Noted red generalized rash on patient. Patient is complaining of intense generalized itching etiology unknown.Excoriation assessed to medial bilateral buttocks with scant sanguinous drainage that is without odor.Bilateral posterior thighs noted with macerated skin and small area of moisture related partial thickness skin loss to L thigh measuring ~1.5 cm x ~ 1cm x ~<0.1cm. NATHALIA Chang in room cleansed patient with soap and water. Patient is laying on Mariely bed with alternating pressure pump. NATHALIA Chang removed cloth pad under patient and applied new ultrasorb pad for incontinence management. Thick layer of Calazime barrier cream applied to bilateral buttocks and posterior upper thighs and left open to air. Medication given at this time to alleviate itching by Anita Ogden RN, CIC [facility] Oct 24, 2016 15:34
[2016-10-24] MEDS: CEFEPIME INJ 1,000 MG in SODIUM CHLORIDE 0.9% INJ 100 ML IV SCH (16:20)
[2016-10-24] MEDS: hydrALAZINE HCL 20 MG/ML VIAL IV PUSH PRN ×2 (16:49→23:13)
--- NOTE | 2016-10-24 17:04 | HHI.IDPN ---
Subjective Subjective Remarks is a 51 y/o F from a SNF who was being treated for chronic LLE cellulitis, non healing ulcer. Patient's past medical history significant for diabetes type 2 uncontrolled, diabetic nephropathy with baseline creatinine of 1.2, legal blindness likely secondary to diabetic retinopathy. She has a history of recurrent cellulitis and a nonhealing ulcer and has been treated for osteomyelitis in the past. Patient has been treated with IV antibiotics using PICC line in the past. Per discussion with her PCP at [facility] patient has received IV antibiotics multiple times in the past. She was being followed by [facility] care [facility] and decision was made to start IV antibiotics Vanco IV and possibly Zosyn IV using a PICC line. Unknown duration of PICC line at this point. Patient presents with worsening creatinine found at her SNF and altered mental status. On arrival to the ED, she had a Cr 7.7, has a chronic indwelling black catheter and has not had any urine per report in the last few days. Renal ultrasound was negative for hydronephrosis. She also has a excoriating rash over her trunk and arms. She was initially admitted to the floor, but rapid response called for hypotension and altered mental status. She was severely acidotic with a pH of 7.1, base deficit 10, pco2 48. At the time of my evaluation patient is currently in intensive care unit and has been intubated for altered mental status. Patient is also undergoing placement of PICC line. She has no urine output and has a Black bag in place. This Black was present on admission. She also had diarrhea on admission. Her risk factors for C. difficile her prior antibiotic usage and residential placement. She is currently sedated and not on any vasopressors. Infectious disease is consulted for evaluation and management of severe sepsis with multiorgan dysfunction syndrome, possible line related infection, acute osteomyelitis. Overnight events and notes reviewed HTN being given hydralazine push by RN per primary team. Temps ok On HD. All antibiotics scheduled post HD. Wound C/S PSAE UC with yeast [place] with no vegetation per my discussion with and . Rash persistent: ? fungal. Antibiotics Cubicin Flagyl Cefepime Micafungin Lines LIJ vascath LSC TLC Past Medical History DM Legally blind COPD HTN anemia sleep apnea CVA neuropathy Afib Allergies: Coded Allergies: morphine (Unverified Allergy, Unknown, 09/26/16) vancomycin (Verified Adverse Reaction, Severe, Rash, 10/17/16) Objective . Vital Signs Date Time Temp Pulse Resp B/P (MAP) Pulse Ox O2 Delivery O2 Flow Rate FiO2 10/24/16 16:23 100 Room Air 10/24/16 16:23 97.6 88 16 188/92 (124) 100 10/24/16 15:00 87 10/24/16 14:00 86 10/24/16 13:26 97.8 97 16 159/89 (112) 99 10/24/16 13:26 99 Room Air 10/24/16 13:00 88 10/24/16 12:00 88 10/24/16 11:00 84 10/24/16 10:00 82 10/24/16 09:00 82 10/24/16 08:10 97.8 81 16 158/86 (110) 97 10/24/16 08:10 98 Room Air 10/24/16 08:00 80 10/24/16 07:00 83 10/24/16 06:00 80 10/24/16 05:00 82 10/24/16 04:00 81 10/24/16 03:03 99 Room Air 10/24/16 03:00 79 10/24/16 03:00 97.5 83 18 156/87 (110) 100 10/24/16 02:00 80 10/24/16 01:00 82 10/24/16 00:00 81 10/23/16 23:00 83 10/23/16 23:00 97.5 84 18 165/93 (117) 99 10/23/16 23:00 99 Room Air 10/23/16 22:12 100 10/23/16 22:00 84 10/23/16 21:00 83 10/23/16 20:00 84 10/23/16 19:15 98 Room Air 10/23/16 19:15 83 10/23/16 19:15 97.6 86 18 169/97 (121) 100 10/23/16 18:00 84 10/24/16 10/24/16 10/25/16 15:00 23:00 07:00 Output Total 3000 ml Balance -3000 ml Hemodialysis 3000 ml . Laboratory Tests Test 10/24/16 06:30 Blood Urea Nitrogen 46 MG/DL Creatinine 5.05 MG/DL Random Glucose 132 MG/DL Albumin 2.2 GM/DL Calcium Level 8.1 MG/DL Phosphorus Level 5.1 MG/DL Sodium Level 138 MEQ/L Potassium Level 5.2 MEQ/L Chloride Level 101 MEQ/L Carbon Dioxide Level 23.1 MEQ/L Anion Gap 14 MEQ/L Estimat Glomerular Filtration Rate 9 ML/MIN Imaging Upper Extremity Ultrasound 10/13/16 Signed Impressions: Service Date/Time: Thursday, October 13, 2016 09:17 - CONCLUSION: 1. No DVT. 2. Subcutaneous edema observed. Wilner Potter Jr., MD Lower Extremity Ultrasound 10/13/16 Signed Impressions: Service Date/Time: Thursday, October 13, 2016 08:57 - CONCLUSION: 1. Study has some limitations as detailed above. No DVT observed. Wilner Potter Jr., MD Lower Extremity CT 10/13/16 Signed Impressions: Service Date/Time: Thursday, October 13, 2016 21:35 - CONCLUSION: Ulcer at the region of the base of the fifth metatarsal. There appears to be chronic and acute changes in this region. The acute changes are worrisome for osteomyelitis at the base of the fifth metatarsal. Ricco Fuentes MD Chest X-Ray 10/13/16 Signed Impressions: Service Date/Time: Thursday, October 13, 2016 15:05 - CONCLUSION: Support apparatus in good position without pneumothorax. Roman Montiel MD FACR Chest CT 10/13/16 Signed Impressions: Service Date/Time: Thursday, October 13, 2016 21:27 - CONCLUSION: 1. Patchy areas of consolidation seen bilaterally being worse on the right. These could represent areas of inflammatory/infectious disease. Focal round lesions to suggest septic emboli are not clearly identified. 2. Edema seen at the right superficial chest and abdomen regions. The cause of for this asymmetric edema is not known. 3. Mild ascites. Ricco Fuentes MD Abdomen CT 10/13/16 Signed Impressions: Service Date/Time: Thursday, October 13, 2016 21:27 - CONCLUSION: 1. Mild ascites seen around the liver. 2. Superficial edema seen bilaterally in the subcutaneous tissues. This is asymmetric and being much more prominent on the right. 3. Small area of increased density seen independently in the gallbladder representing either small gallstones or milk of calcium. Ricco Fuentes MD Renal Ultrasound 10/12/16 0000 Signed Impressions: Service Date/Time: September 20:54 - CONCLUSION: Normal appearance of the kidneys. Ricco Fuentes MD Physical Exam GENERAL:Morbidly obese dark skinned female, in no apparent distress. Eyes open, on the vent SKIN: Diffuse rash in her whole trunk UE and thighs and upper chest wall. Now with skin peeling noted. HEAD: Atraumatic. Normocephalic. No temporal or scalp tenderness. EYES: Pupils equal round and reactive. No scleral icterus. No injection or drainage. ENT: Intubated. NECK: Large neck. Has bleeding at vascath site CARDIOVASCULAR: Distant HS. No murmur audible. RESPIRATORY: Clear to auscultation. Breath sounds equal bilaterally. No wheezes , rales, or rhonchi. GASTROINTESTINAL: Abdomen soft, obese, no reaction to palpation, no guarding, pannus with erythema and moisture. MUSCULOSKELETAL: Left LE with ulcer noted with packing with foul smelling discharge. 1.5 cm opening, deep approx 1.5 cm ? bone probed. Chronic venous stasis changes. NEUROLOGICAL: Awake Sacrum: 2 non stageable ulcers. Psych: could not be assessed. Assessment & Plan Remarks Assessment and Plan Severe Sepsis present on admission PSAE and CGNS bacteremia sepsis, ?PICC, ?L foot Probable PICC line site infection Pneumonia: septic emboli or aspiration PNA. Acute renal failure: Vanco induced, prerenal. On hemodialysis Rash: Vanco IV, fungemia related diffuse rash Acute metabolic encephalopathy: sepsis, metabolic. DM2 with Nephropathy, legal blondness (? DM retinopathy). Acute Osteomyelitis, non healing ulcer likely infected as purulence noted. Diarrhea present on admission UTI Recs: Continue Cefepime IV (on days of HD to be given after HD) will need 6 weeks IV. Continue Dapto IV (on days of HD to be given after HD) stop date entered. Start Diflucan oral. Follow C/S Monitor progress D/W RN and pt D/w Podiatry covering for . Patient is high risk for surgery. He recommends medical management. CM note: will provide discharge recs early next week once she completes Daptomycin infusions for CGNS bacteremia PICC line related. Will need Cefepime 2 gm IV in HD (can be given at HD center if has scheduled HD sessions) for total of 6 weeks. I will complete orders next week after d.w Nephrology team. Will follow prn this week. IF any issues in the interim please call me sooner. Lilibeth Johnson MD Oct 24, 2016 17:04
[2016-10-24] MEDS: FLUCONAZOLE 100 MG TAB PO SCH (18:15)
--- NOTE | 2016-10-24 18:57 | HHI.PR ---
Subjective Remarks Patient seen this morning in hemodialysis. Says she feels all right, apart from an continued itching all over body. Denies any chest pain or shortness of breath. Denies any nausea or vomiting. Objective Vital Signs Date Time Temp Pulse Resp B/P (MAP) Pulse Ox O2 Delivery O2 Flow Rate FiO2 10/24/16 16:23 100 Room Air 10/24/16 16:23 97.6 88 16 188/92 (124) 100 10/24/16 15:00 87 10/24/16 14:00 86 10/24/16 13:26 97.8 97 16 159/89 (112) 99 10/24/16 13:26 99 Room Air 10/24/16 13:00 88 10/24/16 12:00 88 10/24/16 11:00 84 10/24/16 10:00 82 10/24/16 09:00 82 10/24/16 08:10 97.8 81 16 158/86 (110) 97 10/24/16 08:10 98 Room Air 10/24/16 08:00 80 10/24/16 07:00 83 10/24/16 06:00 80 10/24/16 05:00 82 10/24/16 04:00 81 10/24/16 03:03 99 Room Air 10/24/16 03:00 79 10/24/16 03:00 97.5 83 18 156/87 (110) 100 10/24/16 02:00 80 10/24/16 01:00 82 10/24/16 00:00 81 10/23/16 23:00 83 10/23/16 23:00 97.5 84 18 165/93 (117) 99 10/23/16 23:00 99 Room Air 10/23/16 22:12 100 10/23/16 22:00 84 10/23/16 21:00 83 10/23/16 20:00 84 10/23/16 19:15 98 Room Air 10/23/16 19:15 83 10/23/16 19:15 97.6 86 18 169/97 (121) 100 I/O 10/23/16 10/23/16 10/23/16 10/24/16 10/24/16 10/24/16 06:59 14:59 22:59 06:59 14:59 22:59 Intake Total 200 ml 1160 ml 240 ml Output Total 125 ml 100 ml 150 ml 3000 ml Balance 75 ml 1060 ml 90 ml -3000 ml Intake Oral 200 ml 960 ml 240 ml IV Total 200 ml Output Urine Total 125 ml 100 ml 150 ml Hemodialysis 3000 ml Result Diagram: 10/22/16 0406 10/24/16 0630 Objective Remarks GENERAL: 51-year-old female lying in bed. She is alert. SKIN: Warm and dry.patient with driving, flaking skin from previous rash improved, with flaky skin, still appears to be improving. Still No erythema or lesions noted. HEAD: Normocephalic. EYES: No scleral icterus. No injection or drainage. NECK: Supple, trachea midline. No JVD. CARDIOVASCULAR: Regular rate and rhythm without murmurs, gallops, or rubs. RESPIRATORY: Breath sounds equal bilaterally. No accessory muscle use. GASTROINTESTINAL: Abdomen soft, non-tender, nondistended. MUSCULOSKELETAL: No cyanosis. 2+ bilateral lower extremity edema. Weeping sinus of left foot. No surrounding erythema. BACK: Nontender without obvious deformity. No CVA tenderness. A/P Assessment and Plan 51-year-old female with COPD, diabetes, who presents with sepsis, left lower extremity osteomyelitis. Podiatry recommends medical management due to multiple comorbidities. Infectious disease following on IV antibiotics. Hospitalization complicated by respiratory failure, fluid overload, end-stage renal disease requiring hemodialysis, intractable itching, as well as episode of suspected benzodiazepine overdose secondary to Hospital visitors (worked up as stroke, however with negative MRI/MRA, however did receive TPA). -Continue on IV antibiotics, await ID final recommendations, work on readiness for discharge to SNF. == 10/24/16. //Left lower extremity osteomyelitis. No change. Continue IV antibiotics. ID to give final recommendations //Intractable itching. Resistant to diphenhydramine and calamine. Reviewed Ultrasound with sludge in gallbladder, however no intrahepatic ductal dilation noted. Alkaline phosphatase elevated, however likely secondary to osteomyelitis. Alkaline phosphatase isoenzymes are pending. //Possible stage I sacral ulcer. No sacral ulcer per discussion with wound care nurse. Some excoriations on buttocks. Barrier cream. //Vitamin D deficiency. Patient had low vitamin D and was started on cholecalciferol. 1, 25 dihydroxy vitamin D pending. May need to start on calcitriol. Assessment: 51yF with LLE cellulitis who presented with severe oligoanuric acute kidney injury and associated metabolic encephalopathy, septic shock, gram negative uzma bacteremia, fungal urinary tract infection, osteomyelitis, multi- organ system dysfunction. She improved following initiation of hemodialysis and antibiotics and was subsequently extubated on 10/16. Reconsulted for sudden change in mental status and hypotension on 10/18 with suspected stroke - stroke alert called following emergent intubation. Plan by systems: Neurologic: //Suspected stroke alert with acute change in neurologic status //Possible surreptitious benzodiazepine use //Metabolic Encephalopathy secondary to Uremia and sepsis - neuro checks. -Stat head CT negative for bleed. Patient was administered IV thrombolysis following evaluation by neurology Dr. Burton in view of concern for brain stem CVA while awaiting MRI brain on 10/18. Subsequently MRI/MRA brain unremarkable. - Urine tox screen came back positive for benzodiazepines placing concern for surreptitious benzodiazepine use as she does not have any benzodiazepine listed on her MAR. -specific Visitors prevented from visiting patient. Respiratory: //Obesity Hypoventilation Syndrome //COPD //Sleep Apnea //Acute hypoxic and hypercarbic respiratory failure- persistent, no improvement. //Pulmonary Edema - intubated 10/13 for progressive hypoxia - extubated 10/16. -Emergently intubated on 10/18 for airway protection due to altered mental status. Extubated on 10/19, tolerating well - On nasal cannula currently Cardiovascular: //Septic Shock- resolving. //Severe Tricuspid Regurgitation - keep central line. Discontinue art line. - needs continued volume removal via IHD -dialyzed on 10/19 - Hypotension resolved following 1 mg epinephrine IV push prior to intubation. Renal: //Acute oligo anuric kidney injury requiring renal replacement therapy - nephrology consult - HD per nephrology. needs fluid removal -- Strict I/Os FEN/GI: //Severe metabolic acidosis- resolved //Hyperkalemia- resolved. //Morbid Obesity Advance by mouth diet Heme/ID: //Chronic anemia- likely secondary to chronic disease //Septic Shock //LLE osteomyelitis //Pseudomonas bacteremia //Gram Positive Bacteremia //Pseudomonas osteomyelitis //Fungal Urinary Tract Infection - daily cbc -Recommend transfusions of PRBCs to keep hemoglobin above 7 g percent. 2 units PRBCs ordered by nephrology transfused with hemodialysis on 10/19. - follow up sensitivities - ID consult noted. - continue BSAbx. Endocrine: //Diabetes -- SSI, medium scale, every 6 Prophylaxis: //GI Prophylaxis pepcid DVT Prophylaxis -- SCDs Sub-cutaneous heparin (hold heparin for 24 hours following IV TPA) Discharge Planning will likely need SNF. -We'll need IV antibiotics as per infectious disease. Appreciate case management assistance. Ray Bonilla MD Oct 24, 2016 18:57
[2016-10-24] MEDS ORDERED: DOCUSATE SODIUM 50 MG/SENNA 8.6 MG TAB PO SCH (21:00)
[2016-10-25] VITALS (10 sets, daily range): BP systolic 113–187; BP diastolic 56–89; PULSE 87–91; RESP 18–21; TEMP 97.6–98.5; O2SAT 93–98
[2016-10-25] MEDS: INSULIN NovoLIN REGULAR SUPPLEMENTAL SCALE SQ SCH ×5 (06:00→23:58)
[2016-10-25] MEDS: CHLORHEXIDINE 0.12% (ORAL KIT) 15 ML CUP MT SCH ×2 (07:59→20:00)
[2016-10-25] MEDS: FAMOTIDINE 20 MG TAB PO SCH ×2 (08:04→21:42)
[2016-10-25] MEDS: THIAMINE HCL 100 MG TAB PO SCH (08:05)
[2016-10-25] MEDS: DOCUSATE SODIUM 50 MG/SENNA 8.6 MG TAB PO SCH ×2 (08:05→21:43)
[2016-10-25] MEDS: LACTOBACILLUS ACIDOPHILUS TAB PO SCH ×3 (08:05→15:53)
[2016-10-25] MEDS: diphenhydrAMINE HCL 25 MG CAP PO PRN (08:05)
[2016-10-25] MEDS: SODIUM CHLORIDE 0.9% FLUSH 10 ML FLUSH IV FLUSH SCH ×2 (08:06→21:43)
[2016-10-25] MEDS: CHOLECALCIFEROL (VIT D3) 5000 UNIT CAP PO SCH (08:07)
[2016-10-25] MEDS: LACTIC ACID (AMMONIUM LACTATE) 12% LOTION 225 GM BTL TOPICAL SCH ×2 (08:09→21:44)
[2016-10-25] MEDS: RESP: IPRATROPIUM 0.5 MG/2.5 ML NEB NEB SCH ×3 (08:27→21:10)
[2016-10-25 10:50] LABS: BICARBONATE 22.7 MEQ/L (21.0-32.0); POTASSIUM 3.7 MEQ/L (3.5-5.1)
--- NOTE | 2016-10-25 11:47 | HHI.NPPN ---
Subjective General Problems: Anemia Renal Failure: Acute Interval History She was dialyzed yesterday. Alert and oriented today. [place] remains oliguric, does not want black catheter removed. (Lizy Pineda) Review of Systems General Constitutional: Fatigue (Lizy Pineda) Ears, Nose, & Throat ENT Remarks loss of appetite (Lizy Pineda) Respiratory Lungs: SOB (Lizy Pineda) Cardiovascular Cardiac: Edema (Lizy Pineda) Endocrine Endocrine: Thirst (iLzy Pineda) Skin Skin: Skin Rash, Ulcers Skin Remarks generalized rash with peeling skin; ulcer planter surface left foot (Lizy Pineda) Objective Data Data Vital Signs Date Time Temp Pulse Resp B/P (MAP) Pulse Ox O2 Delivery O2 Flow Rate FiO2 10/25/16 08:39 97.7 88 20 159/74 (102) 98 10/25/16 08:30 98 21 10/25/16 08:00 87 10/25/16 04:00 97.8 88 19 113/56 (75) 97 10/25/16 04:00 Room Air 10/25/16 00:00 97.7 90 21 172/88 (116) 97 10/25/16 00:00 Room Air 10/24/16 22:42 90 10/24/16 22:30 97.9 90 21 178/82 (114) 97 10/24/16 22:30 Room Air 10/24/16 21:43 100 21 10/24/16 21:00 88 10/24/16 20:00 88 10/24/16 19:00 Room Air 10/24/16 19:00 97.9 94 18 161/73 (102) 97 10/24/16 19:00 91 10/24/16 18:00 90 10/24/16 17:00 90 10/24/16 16:23 100 Room Air 10/24/16 16:23 97.6 88 16 188/92 (124) 100 10/24/16 16:00 88 10/24/16 15:00 87 10/24/16 14:00 86 10/24/16 13:26 97.8 97 16 159/89 (112) 99 10/24/16 13:26 99 Room Air 10/24/16 13:00 88 10/24/16 12:00 88 (Lizy Pineda) -: 10/22/16 0406 10/25/16 0844 Imaging Last 72 hours Impressions Liver Ultrasound 10/23/16 0000 Signed Impressions: Service Date/Time: Sunday, October 23, 2016 09:45 - CONCLUSION: 1. Gallbladder sludge 2. No evidence of biliary duct dilatation 3. Otherwise unremarkable exam. Jaiden Weston MD Tubes & Lines: Vas-Cath, Black (Lizy Pineda) Physical Exam General Appearance: Well Developed, No Acute Distress, Comfortable, Obese (Lizy Pineda) Eyes Eye Exam: Pupils Equal (Lizy Pineda) Throat Throat Exam: Oral Mucosa [place] & Moist (Lizy Pineda) Neck Neck Exam: Neck Supple (Lizy Pineda) Pulmonary Resp Exam: Breath Sounds Equal, No Distress, Rhonchi, Decreased Bases (Lizy Pineda) Cardiology CV Exam: Regular, Normal Sinus Rhythm, Good Perfusion (Lizy Pineda) Gastrointestinal/Abdomen GI Exam: Soft, Non-Tender, Bowel Sounds Present (Lizy Pineda) Musculoskeletal MS Exam: Joints Intact, Normal Tone, Unable to Ambulate (Lizy Pineda) Integumentary Skin Exam: Warm, Dry, Intact Skin Remarks left foot ulcer (Lizy Pineda) Extremeties Extremities Exam: Pedal Pulses Palpable, Moderate Edema, Dependent Edema (Lizy Pineda) Neurologic Neuro Exam: Alert, Awake, Oriented, Speech Clear, Moving All Extremities (Lizy Pineda) Psychiatric Psych Exam: Appropriate Responses (Lizy Pineda) Assessment/Plan Discussed Condition With: Patient Assessment Summary: FREDI/Acute Renal Failure Problem List: (1) Acute renal failure ICD Codes: N17.9 - Acute kidney failure, unspecified Status: Acute Plan: She apparently has a baseline creatinine of 1 FREDI from ATN, secondary to dehydration, also the possibility of vancomycin induced nephrotoxicity; may also be due to sepsis Oligoanuric. HD initiated on 10/13/16, on TTS HD schedule 3L UF yesterday Continue to monitor renal panel, await renal recovery Labs in AM, HD tomorrow if needed She has vascath in place; may need permcath exchange if HD will be ongoing; however given sepsis will delay exchange at this time and will need ID approval. Avoid nephrotoxic agents such as iodinated contrast, aminoglycosides, NSAIDS if possible. (2) Sepsis ICD Codes: A41.9 - Sepsis, unspecified organism Plan: + Pseudomonas in the blood, and gram stain of the wound. Currently on Cefepime (x 6 weeks) and Daptomycin (until 10/30). Oral Diflucan was added for valencia in urine remove black catheter if no reason to keep it in ID is following PICC removed on admission (3) Hyperkalemia ICD Codes: E87.5 - Hyperkalemia Status: Acute Plan: Resolved. (4) Metabolic acidosis ICD Codes: E87.2 - Acidosis Status: Acute Plan: Corrected, monitor (5) Anemia ICD Codes: D64.9 - Anemia Status: Acute Plan: Hb improved, monitor (6) Vitamin D deficiency ICD Codes: E55.9 - Vitamin D deficiency, unspecified Plan: replacement ordered Plan (Lizy Pineda) Problem List: (1) Acute renal failure ICD Codes: N17.9 - Acute kidney failure, unspecified Status: Acute Plan: She apparently has a baseline creatinine of 1 FREDI from ATN, secondary to dehydration, also the possibility of vancomycin induced nephrotoxicity; may also be due to sepsis Oligoanuric. HD initiated on 10/13/16, on TTS HD schedule 3L UF yesterday Continue to monitor renal panel, await renal recovery Labs in AM, HD tomorrow if needed She has vascath in place; may need permcath exchange if HD will be ongoing; however given sepsis will delay exchange at this time and will need ID approval. Avoid nephrotoxic agents such as iodinated contrast, aminoglycosides, NSAIDS if possible. (2) Sepsis ICD Codes: A41.9 - Sepsis, unspecified organism Plan: + Pseudomonas in the blood, and gram stain of the wound. Currently on Cefepime (x 6 weeks) and Daptomycin (until 10/30). Oral Diflucan was added for valencia in urine remove black catheter if no reason to keep it in ID is following PICC removed on admission (3) Hyperkalemia ICD Codes: E87.5 - Hyperkalemia Status: Acute Plan: Resolved. (4) Metabolic acidosis ICD Codes: E87.2 - Acidosis Status: Acute Plan: Corrected, monitor (5) Anemia ICD Codes: D64.9 - Anemia Status: Acute Plan: Hb improved, monitor (6) Vitamin D deficiency ICD Codes: E55.9 - Vitamin D deficiency, unspecified Plan: replacement ordered Plan patient was seen and examined. Agree with above assessment and plan. Await signs of renal recovery. Currently oliguric. Continue dialysis support. (Francisco Javier Quiros MD) Problem Qualifiers (1) Acute renal failure: Qualified Codes: N17.9 - Acute kidney failure, unspecified (2) Anemia: Qualified Codes: D64.9 - Anemia, unspecified Lizy PinedaP Oct 25, 2016 11:47 Francisco Javier Quiros MD Oct 25, 2016 18:51
--- NOTE | 2016-10-25 14:16 | HHI.PR ---
Subjective Remarks Patient laying in bed talking on the phone She complain of that skin itching, she had scouted dry skin on both arms and the face No fever or chills no chest pain short of breath Objective Vitals Vital Signs Date Time Temp Pulse Resp B/P (MAP) Pulse Ox O2 Delivery O2 Flow Rate FiO2 10/25/16 13:06 97.6 88 18 177/87 (117) 98 10/25/16 08:39 97.7 88 20 159/74 (102) 98 10/25/16 08:30 98 21 10/25/16 08:00 87 10/25/16 08:00 Room Air 10/25/16 04:00 97.8 88 19 113/56 (75) 97 10/25/16 04:00 Room Air 10/25/16 00:00 97.7 90 21 172/88 (116) 97 10/25/16 00:00 Room Air 10/24/16 22:42 90 10/24/16 22:30 97.9 90 21 178/82 (114) 97 10/24/16 22:30 Room Air 10/24/16 21:43 100 21 10/24/16 21:00 88 10/24/16 20:00 88 10/24/16 19:00 Room Air 10/24/16 19:00 97.9 94 18 161/73 (102) 97 10/24/16 19:00 91 10/24/16 18:00 90 10/24/16 17:00 90 10/24/16 16:23 100 Room Air 10/24/16 16:23 97.6 88 16 188/92 (124) 100 10/24/16 16:00 88 10/24/16 15:00 87 I/O 10/24/16 10/24/16 10/24/16 10/25/16 10/25/16 10/25/16 07:00 15:00 23:00 07:00 15:00 23:00 Intake Total 240 ml 340 ml 200 ml Output Total 150 ml 3000 ml 350 ml Balance 90 ml -3000 ml 340 ml -150 ml Intake Oral 240 ml 240 ml 200 ml IV Total 100 ml Output Urine Total 150 ml 350 ml Hemodialysis 3000 ml # Bowel Movements 0 Result Diagram: 10/22/16 0406 10/25/16 0844 Objective Remarks GENERAL: 51-year-old female in no acute distress SKIN: Dry with flaking skin on both upper arms slightly on the neck and the face , No erythema or lesions noted. Per previous notes as to be improving HEAD: Normocephalic. EYES: No scleral icterus. No injection or drainage. NECK: Supple, trachea midline. No JVD. CARDIOVASCULAR: Regular rate and rhythm without murmurs, gallops, or rubs. RESPIRATORY: Breath sounds equal bilaterally. No accessory muscle use. GASTROINTESTINAL: Abdomen soft, non-tender, nondistended. MUSCULOSKELETAL: No cyanosis. 2+ bilateral lower extremity edema. Bilateral foot in gauze NEURO: Awake alert oriented 3, moves upper extremity, wiggle her toes A/P Problem List: (1) Acute renal failure ICD Code: N17.9 - Acute kidney failure, unspecified Status: Acute (2) Hyperkalemia ICD Code: E87.5 - Hyperkalemia Status: Acute (3) HTN (hypertension) ICD Code: I10 - Hypertension Status: Chronic (4) Diabetes mellitus type 2, uncontrolled ICD Code: E11.65 - Uncontrolled type 2 diabetes mellitus Status: Chronic Assessment and Plan 51-year-old female with COPD, diabetes, who presents with sepsis, left lower extremity osteomyelitis. Podiatry recommends medical management due to multiple comorbidities. Infectious disease following on IV antibiotics. Hospitalization complicated by respiratory failure, fluid overload, end-stage renal disease requiring hemodialysis, intractable itching, as well as episode of suspected benzodiazepine overdose secondary to Hospital visitors (worked up as stroke, however with negative MRI/MRA, however did receive TPA). -Continue on IV antibiotics, await ID final recommendations, work on readiness for discharge to SNF. 10/24: -Left lower extremity osteomyelitis. No change. Continue IV antibiotics. ID to give final recommendations -Intractable itching. Resistant to diphenhydramine and calamine. Reviewed Ultrasound with sludge in gallbladder, however no intrahepatic ductal dilation noted. Alkaline phosphatase elevated, however likely secondary to osteomyelitis. Alkaline phosphatase isoenzymes are pending. -Possible stage I sacral ulcer. No sacral ulcer per discussion with wound care nurse. Some excoriations on buttocks. Barrier cream. -Vitamin D deficiency. Patient had low vitamin D and was started on cholecalciferol. 1, 25 dihydroxy vitamin D pending. May need to start on calcitriol. 10/25: continue iv abx per ID , will need outpt iv abx A/P: Assessment: 51yF with LLE cellulitis who presented with severe oligoanuric acute kidney injury and associated metabolic encephalopathy, septic shock, gram negative uzma bacteremia, fungal urinary tract infection, osteomyelitis, multi- organ system dysfunction. She improved following initiation of hemodialysis and antibiotics and was subsequently extubated on 10/16. Reconsulted for sudden change in mental status and hypotension on 10/18 with suspected stroke - stroke alert called following emergent intubation. Plan by systems: Suspected stroke alert with acute change in neurologic status Possible surreptitious benzodiazepine use Metabolic Encephalopathy secondary to Uremia and sepsis - neuro checks. -Stat head CT negative for bleed. Patient was administered IV thrombolysis following evaluation by neurology Dr. Burton in view of concern for brain stem CVA while awaiting MRI brain on 10/18. Subsequently MRI/MRA brain unremarkable. - Urine tox screen came back positive for benzodiazepines placing concern for surreptitious benzodiazepine use as she does not have any benzodiazepine listed on her MAR. -specific Visitors prevented from visiting patient. Obesity Hypoventilation Syndrome COPD Sleep Apnea Acute hypoxic and hypercarbic respiratory failure- persistent, no improvement. Pulmonary Edema - intubated for progressive hypoxia - extubated 10/16. -Emergently intubated on 96 for airway protection due to altered mental status. Extubated on 10/19, tolerating well - On nasal cannula currently Septic Shock- resolving. Severe Tricuspid Regurgitation - keep central line. Discontinue art line. - needs continued volume removal via IHD -dialyzed on - Hypotension resolved following 1 mg epinephrine IV push prior to intubation. Acute oligo anuric kidney injury requiring renal replacement therapy - nephrology consult - HD per nephrology. needs fluid removal -- Strict IOs Severe metabolic acidosis- resolved Hyperkalemia- resolved. Morbid Obesity Advance by mouth diet Chronic anemia- likely secondary to chronic disease Septic Shock LLE osteomyelitis Pseudomonas bacteremia Gram Positive Bacteremia Pseudomonas osteomyelitis Fungal Urinary Tract Infection - daily cbc -Recommend transfusions of PRBCs to keep hemoglobin above 7 g percent. 2 units PRBCs ordered by nephrology transfused with hemodialysis on . - follow up sensitivities - ID consult noted. - continue BSAbx. Diabetes -Vitamin D deficiency. -- Patient had low vitamin D and was started on cholecalciferol. -- SSI, medium scale, every 6 GI Prophylaxis pepcid DVT Prophylaxis -- SCDs Sub-cutaneous heparin (hold heparin for 24 hours following IV TPA) Problem Qualifiers (1) Acute renal failure: Qualified Codes: N17.9 - Acute kidney failure, unspecified Mi Valdivia MD Oct 25, 2016 14:16
[2016-10-25] MEDS: CEFEPIME INJ 1,000 MG in SODIUM CHLORIDE 0.9% INJ 100 ML IV SCH (14:34)
[2016-10-25] MEDS: diphenhydrAMINE HCL 50 MG CAP PO PRN ×2 (14:34→21:43)
[2016-10-25] MEDS: DAPTOmycin INJ 1,000 MG in SODIUM CHLORIDE 0.9% INJ 100 ML IV SCH (15:53)
[2016-10-25] MEDS: cloNIDine HCL 0.1 MG TAB PO PRN (18:08)
[2016-10-25] MEDS: hydrALAZINE HCL 20 MG/ML VIAL IV PUSH PRN (21:43)
[2016-10-26] VITALS (7 sets, daily range): BP systolic 155–198; BP diastolic 77–97; PULSE 88–95; RESP 18–22; TEMP 97.8–98.6; O2SAT 93–98
[2016-10-26] MEDS: RESP: IPRATROPIUM 0.5 MG/2.5 ML NEB NEB SCH ×4 (03:26→19:58)
[2016-10-26] MEDS: diphenhydrAMINE HCL 50 MG CAP PO PRN ×3 (05:24→21:05)
[2016-10-26] MEDS: INSULIN NovoLIN REGULAR SUPPLEMENTAL SCALE SQ SCH ×3 (05:24→18:00)
[2016-10-26] MEDS: CHLORHEXIDINE 0.12% (ORAL KIT) 15 ML CUP MT SCH ×2 (07:04→20:00)
[2016-10-26] MEDS: THIAMINE HCL 100 MG TAB PO SCH (08:39)
[2016-10-26] MEDS: CHOLECALCIFEROL (VIT D3) 5000 UNIT CAP PO SCH (08:39)
[2016-10-26] MEDS: LACTOBACILLUS ACIDOPHILUS TAB PO SCH ×3 (08:39→19:22)
[2016-10-26] MEDS: DOCUSATE SODIUM 50 MG/SENNA 8.6 MG TAB PO SCH ×2 (08:39→21:06)
[2016-10-26] MEDS: FAMOTIDINE 20 MG TAB PO SCH ×2 (08:39→21:06)
[2016-10-26] MEDS: LACTIC ACID (AMMONIUM LACTATE) 12% LOTION 225 GM BTL TOPICAL SCH ×2 (08:41→21:07)
[2016-10-26] MEDS: SODIUM CHLORIDE 0.9% FLUSH 10 ML FLUSH IV FLUSH SCH ×2 (08:42→21:00)
[2016-10-26 09:18] LABS: BASOPHIL % 0.5 % (0.0-2.0); EOSINOPHIL # 0.3 TH/MM3 (0-0.4); EOSINOPHIL % 3.4 % (0.0-4.0); HEMO FLAGS DIFF FINAL; LYMPHOCYTE # 1.3 TH/MM3 (1.0-4.8); MEAN CELL VOLUME 94.1 FL (80.0-100.0); MEAN CORPUSCULAR HEMOGLOBIN 30.2 PG (27.0-34.0); MEAN CORPUSCULAR HGB CONC 32.1 % (32.0-36.0); MONO % 6.6 % (0.0-8.0); NEUT % 75.5 % (16.0-70.0); PLATELET COUNT 179 TH/MM3 (150-450); RED BLOOD COUNT 3.08 MIL/MM3 (4.00-5.30); WHITE BLOOD COUNT 9.2 TH/MM3 (4.0-11.0)
[2016-10-26 09:45] LABS: ANION GAP 13 MEQ/L (5-15); AST (GOT) 16 U/L (15-37); BICARBONATE 25.1 MEQ/L (21.0-32.0); BLOOD UREA NITROGEN 37 MG/DL (7-18); CHLORIDE 100 MEQ/L (98-107); GLOMERULAR FILTRATION RATE 10 ML/MIN (>89); POTASSIUM 3.7 MEQ/L (3.5-5.1); SODIUM (NA) 138 MEQ/L (136-145)
[2016-10-26 09:46] LABS: ALT (GPT) 12 U/L (10-53)
[2016-10-26 09:48] LABS: ALKALINE PHOSPHATASE 217 U/L (45-117); TOTAL BILIRUBIN ADULT 0.7 MG/DL (0.2-1.0)
--- NOTE | 2016-10-26 10:21 | HHI.PR ---
Subjective Remarks Appreciate resting in bed still having annoying itching with dry skin, she told me she has been given frequent baths Will talk to the nurse, we need moisturizer for the skin, patient denied other complain Pressure still not optimized will increase hydralazine dose and monitor blood pressure Objective Vitals Vital Signs Date Time Temp Pulse Resp B/P (MAP) Pulse Ox O2 Delivery O2 Flow Rate FiO2 10/26/16 08:39 93 21 10/26/16 08:00 98.4 93 18 177/84 (115) 94 10/26/16 04:00 98.6 95 22 170/83 (112) 96 10/26/16 04:00 Room Air 10/26/16 00:00 98.1 88 20 155/77 (103) 95 10/26/16 00:00 Room Air 10/25/16 21:11 97 10/25/16 20:18 89 10/25/16 20:00 Room Air 10/25/16 20:00 98.5 88 20 177/86 (116) 93 10/25/16 16:05 97.6 91 18 187/89 (121) 96 10/25/16 13:06 97.6 88 18 177/87 (117) 98 I/O 10/25/16 10/25/16 10/25/16 10/26/16 10/26/16 10/26/16 07:00 15:00 23:00 07:00 15:00 23:00 Intake Total 200 ml 620 ml 120 ml Output Total 350 ml 300 ml 350 ml Balance -150 ml 320 ml -230 ml Intake Oral 200 ml 420 ml 120 ml IV Total 200 ml Output Urine Total 350 ml 300 ml 350 ml # Bowel Movements 0 0 0 Result Diagram: 10/26/16 0710/26/16 07 Objective Remarks GENERAL: 51-year-old female in no acute distress SKIN: Dry with flaking skin on both upper arms slightly on the neck and the face , No erythema or lesions noted. Per previous notes as to be improving HEAD: Normocephalic. EYES: No scleral icterus. No injection or drainage. NECK: Supple, trachea midline. No JVD. CARDIOVASCULAR: Regular rate and rhythm without murmurs, gallops, or rubs. RESPIRATORY: Breath sounds equal bilaterally. No accessory muscle use. GASTROINTESTINAL: Abdomen soft, non-tender, nondistended. MUSCULOSKELETAL: No cyanosis. 2+ bilateral lower extremity edema. Bilateral foot in gauze NEURO: Awake alert oriented 3, moves upper extremity, wiggle her toes A/P Problem List: (1) Acute renal failure ICD Code: N17.9 - Acute kidney failure, unspecified Status: Acute (2) Hyperkalemia ICD Code: E87.5 - Hyperkalemia Status: Acute (3) HTN (hypertension) ICD Code: I10 - Hypertension Status: Chronic (4) Diabetes mellitus type 2, uncontrolled ICD Code: E11.65 - Uncontrolled type 2 diabetes mellitus Status: Chronic Assessment and Plan 51-year-old female with COPD, diabetes, who presents with sepsis, left lower extremity osteomyelitis. Podiatry recommends medical management due to multiple comorbidities. Infectious disease following on IV antibiotics. Hospitalization complicated by respiratory failure, fluid overload, end-stage renal disease requiring hemodialysis, intractable itching, as well as episode of suspected benzodiazepine overdose secondary to Hospital visitors (worked up as stroke, however with negative MRI/MRA, however did receive TPA). -Continue on IV antibiotics, await ID final recommendations, work on readiness for discharge to SNF. 10/24: -Left lower extremity osteomyelitis. No change. Continue IV antibiotics. ID to give final recommendations -Intractable itching. Resistant to diphenhydramine and calamine. Reviewed Ultrasound with sludge in gallbladder, however no intrahepatic ductal dilation noted. Alkaline phosphatase elevated, however likely secondary to osteomyelitis. Alkaline phosphatase isoenzymes are pending. -Possible stage I sacral ulcer. No sacral ulcer per discussion with wound care nurse. Some excoriations on buttocks. Barrier cream. -Vitamin D deficiency. Patient had low vitamin D and was started on cholecalciferol. 1, 25 dihydroxy vitamin D pending. May need to start on calcitriol. 10/25: continue iv abx per ID , will need outpt iv abx 10/26: No-significant event overnight, Blood pressure still not optimized, will add hydralazine by mouth 25 mg twice a day, creatinine increased back to 4.54 today, follow with nephrology, continue cefepime, Vanco, Diflucan, per ID, decision on PermCath later on when cleared by ID A/P: Assessment: 51yF with LLE cellulitis who presented with severe oligoanuric acute kidney injury and associated metabolic encephalopathy, septic shock, gram negative umza bacteremia, fungal urinary tract infection, osteomyelitis, multi- organ system dysfunction. She improved following initiation of hemodialysis and antibiotics and was subsequently extubated on 10/16. Reconsulted for sudden change in mental status and hypotension on 10/18 with suspected stroke - stroke alert called following emergent intubation. Plan by systems: Suspected stroke alert with acute change in neurologic status Possible surreptitious benzodiazepine use Metabolic Encephalopathy secondary to Uremia and sepsis - neuro checks. -Stat head CT negative for bleed. Patient was administered IV thrombolysis following evaluation by neurology Dr. Burton in view of concern for brain stem CVA while awaiting MRI brain on 10/18. Subsequently MRI/MRA brain unremarkable. - Urine tox screen came back positive for benzodiazepines placing concern for surreptitious benzodiazepine use as she does not have any benzodiazepine listed on her MAR. -specific Visitors prevented from visiting patient. Obesity Hypoventilation Syndrome COPD Sleep Apnea Acute hypoxic and hypercarbic respiratory failure- persistent, no improvement. Pulmonary Edema - intubated for progressive hypoxia - extubated 10/16. -Emergently intubated on for airway protection due to altered mental status. Extubated on 10/19, tolerating well - On nasal cannula currently Septic Shock- resolving. Severe Tricuspid Regurgitation - keep central line. Discontinue art line. - needs continued volume removal via IHD -dialyzed on - Hypotension resolved following 1 mg epinephrine IV push prior to intubation. Acute oligo anuric kidney injury requiring renal replacement therapy - nephrology consult - HD per nephrology. needs fluid removal -- Strict IOs Severe metabolic acidosis- resolved Hyperkalemia- resolved. Morbid Obesity Advance by mouth diet Chronic anemia- likely secondary to chronic disease Septic Shock LLE osteomyelitis Pseudomonas bacteremia Gram Positive Bacteremia Pseudomonas osteomyelitis Fungal Urinary Tract Infection - daily cbc -Recommend transfusions of PRBCs to keep hemoglobin above 7 g percent. 2 units PRBCs ordered by nephrology transfused with hemodialysis on . - follow up sensitivities - ID consult noted. - continue BSAbx. Diabetes -Vitamin D deficiency. -- Patient had low vitamin D and was started on cholecalciferol. -- SSI, medium scale, every 6 GI Prophylaxis pepcid DVT Prophylaxis -- SCDs Sub-cutaneous heparin (hold heparin for 24 hours following IV TPA) Problem Qualifiers (1) Acute renal failure: Qualified Codes: N17.9 - Acute kidney failure, unspecified Mi Valdivia MD Oct 26, 2016 10:21
--- NOTE | 2016-10-26 10:46 | HHI.NPPN ---
Subjective General Problems: Anemia Renal Failure: Acute Interval History She is awake and alert. Urine output may have increased. Creatinine is higher today. (Lizy Pineda) Review of Systems General Constitutional: Fatigue (Lizy Pineda) Ears, Nose, & Throat ENT Remarks loss of appetite (Lizy Pineda) Respiratory Lungs: SOB (Lizy Pineda) Cardiovascular Cardiac: Edema (Lizy Pineda) Endocrine Endocrine: Thirst (Lizy Pineda) Skin Skin: Skin Rash, Ulcers Skin Remarks generalized rash with peeling skin; ulcer planter surface left foot (Lizy Pineda) Objective Data Data Vital Signs Date Time Temp Pulse Resp B/P (MAP) Pulse Ox O2 Delivery O2 Flow Rate FiO2 10/26/16 08:39 93 21 10/26/16 08:00 91 10/26/16 08:00 98.4 93 18 177/84 (115) 94 10/26/16 04:00 98.6 95 22 170/83 (112) 96 10/26/16 04:00 Room Air 10/26/16 00:00 98.1 88 20 155/77 (103) 95 10/26/16 00:00 Room Air 10/25/16 21:11 97 10/25/16 20:18 89 10/25/16 20:00 Room Air 10/25/16 20:00 98.5 88 20 177/86 (116) 93 10/25/16 16:05 97.6 91 18 187/89 (121) 96 10/25/16 13:06 97.6 88 18 177/87 (117) 98 (Lizy Pineda) -: 10/26/16 0700 10/26/16 0700 Imaging Last Impressions Liver Ultrasound 10/23/16 0000 Signed Impressions: Service Date/Time: Sunday, October 23, 2016 09:45 - CONCLUSION: 1. Gallbladder sludge 2. No evidence of biliary duct dilatation 3. Otherwise unremarkable exam. Jaiden Weston MD Head CT 10/19/16 1700 Signed Impressions: Service Date/Time: October 17:01 - CONCLUSION: No acute intracranial findings Ricco Kulkarni MD Head Magnetic Resonance Angiography 10/18/16 Signed Impressions: Service Date/Time: Tuesday, October 18, 2016 16:23 - CONCLUSION: Normal examination. Ricco Kulkarni MD Chest X-Ray 10/18/16 Signed Impressions: Service Date/Time: Tuesday, October 18, 2016 14:59 - CONCLUSION: 1. Mild to moderate pulmonary vascular congestion. 2. Cardiomegaly. 3. Elevation of the right hemidiaphragm. 4. Endotracheal tube in good position 3 cm above the elsie. 5. Left internal jugular VasCath and left subclavian central line are stable in positions. Raymond Smith MD Brain MRI 10/18/16 Signed Impressions: Service Date/Time: Tuesday, October 18, 2016 16:11 - CONCLUSION: Nonspecific white matter signal change in the left frontal region. No evidence of acute stroke. Ricco Kulkarni MD Ankle X-Ray 10/14/16 Signed Impressions: Service Date/Time: Friday, October 14, 2016 17:01 - CONCLUSION: Marked soft tissue swelling with subcutaneous calcifications. Negative for fracture. Roman Montiel MD FACR Upper Extremity Ultrasound 10/13/16 Signed Impressions: Service Date/Time: Thursday, October 13, 2016 09:17 - CONCLUSION: 1. No DVT. 2. Subcutaneous edema observed. Wilner Potter Jr., MD Lower Extremity Ultrasound 10/13/16 Signed Impressions: Service Date/Time: Thursday, October 13, 2016 08:57 - CONCLUSION: 1. Study has some limitations as detailed above. No DVT observed. Wilner Potter Jr., MD Lower Extremity CT 10/13/16 Signed Impressions: Service Date/Time: Thursday, October 13, 2016 21:35 - CONCLUSION: Ulcer at the region of the base of the fifth metatarsal. There appears to be chronic and acute changes in this region. The acute changes are worrisome for osteomyelitis at the base of the fifth metatarsal. Ricco Fuentes MD Chest CT 10/13/16 Signed Impressions: Service Date/Time: Thursday, October 13, 2016 21:27 - CONCLUSION: 1. Patchy areas of consolidation seen bilaterally being worse on the right. These could represent areas of inflammatory/infectious disease. Focal round lesions to suggest septic emboli are not clearly identified. 2. Edema seen at the right superficial chest and abdomen regions. The cause of for this asymmetric edema is not known. 3. Mild ascites. Ricco Fuentes MD Abdomen CT 10/13/16 0000 Signed Impressions: Service Date/Time: Thursday, October 13, 2016 21:27 - CONCLUSION: 1. Mild ascites seen around the liver. 2. Superficial edema seen bilaterally in the subcutaneous tissues. This is asymmetric and being much more prominent on the right. 3. Small area of increased density seen independently in the gallbladder representing either small gallstones or milk of calcium. Ricco Fuentes MD Renal Ultrasound 10/12/16 0000 Signed Impressions: Service Date/Time: September 20:54 - CONCLUSION: Normal appearance of the kidneys. Ricco Fuentes MD Tubes & Lines: Vas-Cath, Black (Lizy Pineda) Physical Exam General Appearance: Well Developed, No Acute Distress, Comfortable, Obese (Lizy Pineda) Eyes Eye Exam: Pupils Equal (Lizy PinedaP) Throat Throat Exam: Oral Mucosa [place] & Moist (Lizy Pineda B. STOCK MOVER) Neck Neck Exam: Neck Supple (Lizy PinedaP) Pulmonary Resp Exam: Breath Sounds Equal, No Distress, Rhonchi, Decreased Bases (Lizy Pineda B. STOCK MOVER) Cardiology CV Exam: Regular, Normal Sinus Rhythm, Good Perfusion (Lizy Pineda B. STOCK MOVER) Gastrointestinal/Abdomen GI Exam: Soft, Non-Tender, Bowel Sounds Present (Lizy Pineda BOtis PEREAP) Musculoskeletal MS Exam: Joints Intact, Normal Tone, Unable to Ambulate (Lizy Pineda. STOCK MOVER) Integumentary Skin Exam: Warm, Dry, Intact Skin Remarks left foot ulcer (Lizy Pineda) Extremeties Extremities Exam: Pedal Pulses Palpable, Moderate Edema, Dependent Edema (Lizy Pinead B. STOCK MOVER) Neurologic Neuro Exam: Alert, Awake, Oriented, Speech Clear, Moving All Extremities (Lizy Pineda B. STOCK MOVER) Psychiatric Psych Exam: Appropriate Responses (Lizy Pineda) Assessment/Plan Discussed Condition With: Patient Assessment Summary: FREDI/Acute Renal Failure Problem List: (1) Acute renal failure ICD Codes: N17.9 - Acute kidney failure, unspecified Status: Acute Plan: She apparently has a baseline creatinine of 1 FREDI from ATN, secondary to dehydration, also the possibility of vancomycin induced nephrotoxicity; may also be due to sepsis Oliguric, although urine output may have increased HD initiated on 10/13/16, on TTS HD schedule Due today for dialysis Continue to monitor renal function, await renal recovery She has vascath in place; may need permcath exchange if HD will be ongoing; however given sepsis will delay exchange at this time and will need ID approval. Avoid nephrotoxic agents such as iodinated contrast, aminoglycosides, NSAIDS if possible. (2) Sepsis ICD Codes: A41.9 - Sepsis, unspecified organism Plan: + Pseudomonas in the blood, and gram stain of the wound. Currently on Cefepime (x 6 weeks) and Daptomycin (until 10/30). Oral Diflucan was added for valencia in urine remove black catheter if no reason to keep it in ID is following PICC removed on admission (3) Hyperkalemia ICD Codes: E87.5 - Hyperkalemia Status: Acute Plan: Resolved. (4) Metabolic acidosis ICD Codes: E87.2 - Acidosis Status: Acute Plan: Corrected, monitor (5) Anemia ICD Codes: D64.9 - Anemia Status: Acute Plan: Hb improved, monitor (6) Vitamin D deficiency ICD Codes: E55.9 - Vitamin D deficiency, unspecified Plan: replacement ordered (Lizy Pineda) Plan patient was seen and examined. Agree with above assessment and plan. Watch for signs of renal recovery. Monitor urine output and renal function as well as electrolytes. (Francisco Javier Quiros MD) Problem Qualifiers (1) Acute renal failure: Qualified Codes: N17.9 - Acute kidney failure, unspecified (2) Anemia: Qualified Codes: D64.9 - Anemia, unspecified Lizy Pineda Oct 26, 2016 10:45 Francisco Javier Quiros MD Oct 27, 2016 13:42
[2016-10-26] MEDS: hydrALAZINE HCL 25 MG TAB PO SCH ×2 (11:32→21:06)
[2016-10-26] MEDS: CEFEPIME INJ 1,000 MG in SODIUM CHLORIDE 0.9% INJ 100 ML IV SCH (14:14)
[2016-10-26] MEDS: HEPARIN SODIUM - IV 10,000 UNITS/10 ML VIAL PRN (16:53)
[2016-10-26] MEDS: GENTAMICIN SULFATE (DIALYSIS USE ONLY) 20 MG/2 ML VIAL IV PRN (16:53)
[2016-10-26] MEDS: diphenhydrAMINE HCL 25 MG CAP PO PRN (18:35)
[2016-10-26] MEDS: FLUCONAZOLE 100 MG TAB PO SCH (19:22)
[2016-10-27] VITALS (7 sets, daily range): BP systolic 99–206; BP diastolic 64–112; PULSE 83–98; RESP 18–24; TEMP 97.3–98.4; O2SAT 93–100
[2016-10-27] MEDS: INSULIN NovoLIN REGULAR SUPPLEMENTAL SCALE SQ SCH ×4 (00:15→16:58)
[2016-10-27] MEDS: diphenhydrAMINE HCL 50 MG CAP PO PRN ×4 (02:50→22:21)
[2016-10-27] MEDS: RESP: IPRATROPIUM 0.5 MG/2.5 ML NEB NEB SCH ×4 (04:45→22:45)
[2016-10-27] MEDS: CHLORHEXIDINE 0.12% (ORAL KIT) 15 ML CUP MT SCH ×2 (09:08→20:00)
[2016-10-27] MEDS: hydrALAZINE HCL 25 MG TAB PO SCH ×2 (09:08→22:24)
[2016-10-27] MEDS: SODIUM CHLORIDE 0.9% FLUSH 10 ML FLUSH IV FLUSH SCH ×2 (09:08→22:24)
[2016-10-27] MEDS: LACTOBACILLUS ACIDOPHILUS TAB PO SCH ×3 (09:08→16:58)
[2016-10-27] MEDS: FAMOTIDINE 20 MG TAB PO SCH ×2 (09:08→22:24)
[2016-10-27] MEDS: THIAMINE HCL 100 MG TAB PO SCH (09:08)
[2016-10-27] MEDS: DOCUSATE SODIUM 50 MG/SENNA 8.6 MG TAB PO SCH ×2 (09:08→21:00)
[2016-10-27 09:27] LABS: BICARBONATE 27.4 MEQ/L (21.0-32.0); POTASSIUM 3.4 MEQ/L (3.5-5.1)
--- NOTE | 2016-10-27 11:11 | HHI.NPPN ---
Subjective General Problems: Anemia Renal Failure: Acute Interval History She was dialyzed yesterday. Seems more alert todaty. 700 ml urine output. (Lizy Pineda) Review of Systems General Constitutional: Fatigue (Lizy Pineda) Ears, Nose, & Throat ENT Remarks loss of appetite (Lizy Pineda) Respiratory Lungs: SOB (Lizy Pineda) Cardiovascular Cardiac: Edema (Lizy Pineda) Endocrine Endocrine: Thirst (Lizy Pineda) Skin Skin: Skin Rash, Ulcers Skin Remarks generalized rash with peeling skin; ulcer planter surface left foot (Lizy Pineda) Objective Data Data Vital Signs Date Time Temp Pulse Resp B/P (MAP) Pulse Ox O2 Delivery O2 Flow Rate FiO2 10/27/16 08:00 97.8 87 20 191/89 (123) 93 10/27/16 04:00 Room Air 10/27/16 04:00 97.5 88 18 179/83 (115) 100 10/27/16 00:00 Room Air 10/27/16 00:00 97.3 89 18 197/79 (118) 96 10/26/16 20:01 93 21 10/26/16 20:00 97.8 92 18 196/93 (127) 98 10/26/16 20:00 93 10/26/16 20:00 Room Air 10/26/16 12:00 98.0 92 20 198/97 (130) 98 (Lizy Pineda) -: 10/26/16 0700 10/27/16 0820 Tubes & Lines: Vas-Cath, Black (Lizy Pineda) Physical Exam General Appearance: Well Developed, No Acute Distress, Comfortable, Obese (Lizy Pineda) Eyes Eye Exam: Pupils Equal (Lizy Pineda) Throat Throat Exam: Oral Mucosa [place] & Moist (Lizy Pineda) Neck Neck Exam: Neck Supple (Lizy Pineda) Pulmonary Resp Exam: Breath Sounds Equal, No Distress, Rhonchi, Decreased Bases (Lizy Pineda) Cardiology CV Exam: Regular, Normal Sinus Rhythm, Good Perfusion (Lizy Pineda) Gastrointestinal/Abdomen GI Exam: Soft, Non-Tender, Bowel Sounds Present (Lizy Pineda) Musculoskeletal MS Exam: Joints Intact, Normal Tone, Unable to Ambulate (Lizy Pineda) Integumentary Skin Exam: Warm, Dry, Intact Skin Remarks left foot ulcer (Lizy Pineda) Extremeties Extremities Exam: Pedal Pulses Palpable, Moderate Edema, Dependent Edema (Lizy Pineda) Neurologic Neuro Exam: Alert, Awake, Oriented, Speech Clear, Moving All Extremities (Lizy Pineda) Psychiatric Psych Exam: Appropriate Responses (Lizy Pineda) Assessment/Plan Discussed Condition With: Patient Assessment Summary: FREDI/Acute Renal Failure Problem List: (1) Acute renal failure ICD Codes: N17.9 - Acute kidney failure, unspecified Status: Acute Plan: She apparently has a baseline creatinine of 1 FREDI from ATN, secondary to dehydration, also the possibility of vancomycin induced nephrotoxicity; may also be due to sepsis Non olgiuric HD initiated on 10/13/16, on TTS HD schedule She had 3300 ml UF yesterda Continue to monitor renal function, await renal recovery Labs tomorrow, HD if needed She has vascath in place; may need permcath exchange if HD will be ongoing; however given sepsis will delay exchange at this time and will need ID approval. Avoid nephrotoxic agents such as iodinated contrast, aminoglycosides, NSAIDS if possible. (2) Sepsis ICD Codes: A41.9 - Sepsis, unspecified organism Plan: + Pseudomonas in the blood, and gram stain of the wound. Currently on Cefepime (x 6 weeks) and Daptomycin (until 10/30). Oral Diflucan was added for valencia in urine remove black catheter if no reason to keep it in ID is following PICC removed on admission (3) Hyperkalemia ICD Codes: E87.5 - Hyperkalemia Status: Acute Plan: Resolved. (4) Metabolic acidosis ICD Codes: E87.2 - Acidosis Status: Acute Plan: Corrected, monitor (5) Anemia ICD Codes: D64.9 - Anemia Status: Acute Plan: Hb improved, monitor (6) Vitamin D deficiency ICD Codes: E55.9 - Vitamin D deficiency, unspecified Plan: replacement ordered (Lizy Pineda) Plan patient was seen and examined. Agree with above assessment and plan. Watch for signs of renal recovery. (Francisco Javier Quiros MD) Problem Qualifiers (1) Acute renal failure: Qualified Codes: N17.9 - Acute kidney failure, unspecified (2) Anemia: Qualified Codes: D64.9 - Anemia, unspecified Lizy Pineda Oct 27, 2016 11:11 Francisco Javier Quiros MD Oct 27, 2016 14:09
[2016-10-27] MEDS: CALAMINE LOTION 180 APPLIC/180 ML BTL TOPICAL PRN (12:00)
[2016-10-27] MEDS: CEFEPIME INJ 1,000 MG in SODIUM CHLORIDE 0.9% INJ 100 ML IV SCH (13:56)
[2016-10-27] MEDS: LACTIC ACID (AMMONIUM LACTATE) 12% LOTION 225 GM BTL TOPICAL SCH ×2 (13:56→22:25)
[2016-10-27] MEDS: CHOLECALCIFEROL (VIT D3) 5000 UNIT CAP PO SCH (13:56)
--- NOTE | 2016-10-27 16:25 | HHI.PR ---
Subjective Remarks Stated itching is slightly better today but still there She is sleeping looks comfortable Woke up to verbal stimuli, not answering too many questioning because she is sleepy Objective Vitals Vital Signs Date Time Temp Pulse Resp B/P (MAP) Pulse Ox O2 Delivery O2 Flow Rate FiO2 10/27/16 12:00 97.8 90 20 176/77 (110) 95 10/27/16 09:15 87 10/27/16 09:15 Room Air 10/27/16 08:00 97.8 87 20 191/89 (123) 93 10/27/16 04:00 Room Air 10/27/16 04:00 97.5 88 18 179/83 (115) 100 10/27/16 00:00 Room Air 10/27/16 00:00 97.3 89 18 197/79 (118) 96 10/26/16 20:01 93 21 10/26/16 20:00 97.8 92 18 196/93 (127) 98 10/26/16 20:00 93 10/26/16 20:00 Room Air I/O 10/26/16 10/26/16 10/26/16 10/27/16 10/27/16 10/27/16 07:00 15:00 23:00 07:00 15:00 23:00 Intake Total 120 ml 720 ml 240 ml Output Total 350 ml 3600 ml 400 ml Balance -230 ml -2880 ml -160 ml Intake Oral 120 ml 720 ml 240 ml Output Urine Total 350 ml 300 ml 400 ml Hemodialysis 3300 ml # Bowel Movements 0 1 0 Result Diagram: 10/26/16 0700 10/27/16 0820 Objective Remarks GENERAL: 51-year-old female in no acute distress SKIN: Dry with flaking skin on both upper arms slightly on the neck and the face , No erythema or lesions noted. Per previous notes as to be improving HEAD: Normocephalic. EYES: No scleral icterus. No injection or drainage. NECK: Supple, trachea midline. No JVD. CARDIOVASCULAR: Regular rate and rhythm without murmurs, gallops, or rubs. RESPIRATORY: Breath sounds equal bilaterally. No accessory muscle use. GASTROINTESTINAL: Abdomen soft, non-tender, nondistended. MUSCULOSKELETAL: No cyanosis. 2+ bilateral lower extremity edema. Bilateral foot in gauze NEURO: Awake alert oriented 3, moves upper extremity, wiggle her toes A/P Problem List: (1) Acute renal failure ICD Code: N17.9 - Acute kidney failure, unspecified Status: Acute (2) Hyperkalemia ICD Code: E87.5 - Hyperkalemia Status: Acute (3) HTN (hypertension) ICD Code: I10 - Hypertension Status: Chronic (4) Diabetes mellitus type 2, uncontrolled ICD Code: E11.65 - Uncontrolled type 2 diabetes mellitus Status: Chronic Assessment and Plan 51-year-old female with COPD, diabetes, who presents with sepsis, left lower extremity osteomyelitis. Podiatry recommends medical management due to multiple comorbidities. Infectious disease following on IV antibiotics. Hospitalization complicated by respiratory failure, fluid overload, end-stage renal disease requiring hemodialysis, intractable itching, as well as episode of suspected benzodiazepine overdose secondary to Hospital visitors (worked up as stroke, however with negative MRI/MRA, however did receive TPA). -Continue on IV antibiotics, await ID final recommendations, work on readiness for discharge to SNF. A/P: Assessment: 51yF with LLE cellulitis who presented with severe oligoanuric acute kidney injury and associated metabolic encephalopathy, septic shock, gram negative uzma bacteremia, fungal urinary tract infection, osteomyelitis, multi- organ system dysfunction. She improved following initiation of hemodialysis and antibiotics and was subsequently extubated on 10/16. Reconsulted for sudden change in mental status and hypotension on 10/18 with suspected stroke - stroke alert called following emergent intubation. 10/27: Nephrology mostly decide on starting PermCath once once okay with ID, discussed with the nurse Suspected stroke alert with acute change in neurologic status Possible surreptitious benzodiazepine use Metabolic Encephalopathy secondary to Uremia and sepsis - neuro checks. -Stat head CT negative for bleed. Patient was administered IV thrombolysis following evaluation by neurology Dr. Burton in view of concern for brain stem CVA while awaiting MRI brain on 10/18. Subsequently MRI/MRA brain unremarkable. - Urine tox screen came back positive for benzodiazepines placing concern for surreptitious benzodiazepine use as she does not have any benzodiazepine listed on her APR. -specific Visitors prevented from visiting patient. Obesity Hypoventilation Syndrome COPD Sleep Apnea Acute hypoxic and hypercarbic respiratory failure- persistent, no improvement. Pulmonary Edema - intubated 91 for progressive hypoxia - extubated 10/16. -Emergently intubated on 96 for airway protection due to altered mental status. Extubated on 10/19, tolerating well - On nasal cannula currently Septic Shock- resolving. Severe Tricuspid Regurgitation - keep central line. Discontinue art line. - needs continued volume removal via IHD -dialyzed on - Hypotension resolved following 1 mg epinephrine IV push prior to intubation. Acute oligo anuric kidney injury requiring renal replacement therapy - nephrology following - HD per nephrology. -- Strict IOs Severe metabolic acidosis- resolved Hyperkalemia- resolved. Morbid Obesity Advance by mouth diet Chronic anemia- likely secondary to chronic disease Septic Shock LLE osteomyelitis Pseudomonas bacteremia Gram Positive Bacteremia Pseudomonas osteomyelitis Fungal Urinary Tract Infection - daily cbc -Recommend transfusions of PRBCs to keep hemoglobin above 7 g percent. 2 units PRBCs ordered by nephrology transfused with hemodialysis on . - follow up sensitivities - ID consult noted. - continue BSAbx. Diabetes -Vitamin D deficiency. -- Patient had low vitamin D and was started on cholecalciferol. -- SSI, medium scale, every 6 GI Prophylaxis pepcid DVT Prophylaxis -- SCDs Sub-cutaneous heparin (hold heparin for 24 hours following IV TPA) Problem Qualifiers (1) Acute renal failure: Qualified Codes: N17.9 - Acute kidney failure, unspecified Mi Valdivia MD Oct 27, 2016 16:25
[2016-10-27] MEDS: DAPTOmycin INJ 1,000 MG in SODIUM CHLORIDE 0.9% INJ 100 ML IV SCH (16:58)
[2016-10-27] MEDS ORDERED: diphenhydrAMINE HCL 2%/ZINC ACETATE 0.1% CREAM 30 APPLIC/30 GM TUBE TOPICAL PRN (17:30)
[2016-10-27] MEDS: hydrALAZINE HCL 20 MG/ML VIAL IV PUSH PRN (22:28)
[2016-10-28] VITALS (11 sets, daily range): BP systolic 175–209; BP diastolic 81–98; PULSE 84–90; RESP 16–22; TEMP 98–98.6; O2SAT 95–100
[2016-10-28] MEDS: diphenhydrAMINE HCL 50 MG CAP PO PRN ×3 (03:28→18:27)
[2016-10-28] MEDS: RESP: IPRATROPIUM 0.5 MG/2.5 ML NEB NEB SCH ×4 (03:51→21:43)
[2016-10-28] MEDS: INSULIN NovoLIN REGULAR SUPPLEMENTAL SCALE SQ SCH ×5 (06:00→23:51)
[2016-10-28] MEDS: diphenhydrAMINE HCL 25 MG CAP PO PRN (06:35)
[2016-10-28] MEDS: cloNIDine HCL 0.1 MG TAB PO PRN ×2 (06:35→20:05)
--- NOTE | 2016-10-28 10:11 | HHI.NPPN ---
Subjective General Problems: Anemia Renal Failure: Acute Interval History labs are pending. Skin rash improving. Urine output may be improving. Review of Systems General Constitutional: Fatigue Ears, Nose, & Throat ENT Remarks loss of appetite Respiratory Lungs: SOB Cardiovascular Cardiac: Edema Endocrine Endocrine: Thirst Skin Skin: Skin Rash, Ulcers Skin Remarks generalized rash with peeling skin; ulcer planter surface left foot Objective Data Data Vital Signs Date Time Temp Pulse Resp B/P (MAP) Pulse Ox O2 Delivery O2 Flow Rate FiO2 10/28/16 08:00 98.0 89 16 209/96 (133) 95 10/28/16 04:00 98.6 85 22 175/85 (115) 96 10/28/16 03:53 96 10/28/16 03:00 Room Air 10/28/16 00:00 98.6 89 20 176/81 (112) 97 10/27/16 23:00 Room Air 10/27/16 20:00 89 10/27/16 20:00 97.7 83 24 204/108 (140) 96 206/112 (143) 10/27/16 20:00 Room Air 10/27/16 16:00 98.4 84 20 184/89 (120) 94 10/27/16 12:00 97.8 90 20 176/77 (110) 95 -: 10/26/16 0700 10/27/16 0820 Tubes & Lines: Vas-Cath, Black Physical Exam General Appearance: Well Developed, No Acute Distress, Comfortable, Obese Appearance Remarks intubated. Eyes Eye Exam: Pupils Equal Throat Throat Exam: Oral Mucosa [place] & Moist Neck Neck Exam: Neck Supple Pulmonary Resp Exam: Breath Sounds Equal, No Distress, Rhonchi, Decreased Bases Cardiology CV Exam: Regular, Normal Sinus Rhythm, Good Perfusion Gastrointestinal/Abdomen GI Exam: Soft, Non-Tender, Bowel Sounds Present GI Remarks obese. Musculoskeletal MS Exam: Joints Intact, Normal Tone, Unable to Ambulate Integumentary Skin Exam: Warm, Dry, Intact Skin Remarks skin desquamation. Extremeties Extremities Exam: Pedal Pulses Palpable, Moderate Edema, Dependent Edema Neurologic Neuro Exam: Alert, Awake, Oriented, Speech Clear, Moving All Extremities Neuro Remarks appears to be awake, appears to follow some commands. Psychiatric Psych Exam: Appropriate Responses Assessment/Plan Discussed Condition With: Patient Assessment Summary: FREDI/Acute Renal Failure Problem List: (1) Acute renal failure ICD Codes: N17.9 - Acute kidney failure, unspecified Status: Acute Plan: She apparently has a baseline creatinine of 1 FREDI from ATN, secondary to dehydration, also the possibility of vancomycin induced nephrotoxicity; may also be due to sepsis Non olgiuric HD initiated on 10/13/16, on TTS HD schedule Continue to monitor renal function, await renal recovery Dialysis today if necessary. She has vascath in place; may need permcath exchange if HD will be ongoing; however given sepsis will delay exchange at this time and will need ID approval. Avoid nephrotoxic agents such as iodinated contrast, aminoglycosides, NSAIDS if possible. (2) Sepsis ICD Codes: A41.9 - Sepsis, unspecified organism Plan: + Pseudomonas in the blood, and gram stain of the wound. Currently on Cefepime (x 6 weeks) and Daptomycin (until 10/30). Oral Diflucan was added for valencia in urine remove black catheter if no reason to keep it in ID is following PICC removed on admission (3) Hyperkalemia ICD Codes: E87.5 - Hyperkalemia Status: Acute Plan: Resolved. (4) Metabolic acidosis ICD Codes: E87.2 - Acidosis Status: Acute Plan: Corrected, monitor (5) Anemia ICD Codes: D64.9 - Anemia Status: Acute Plan: Hb improved, monitor (6) Vitamin D deficiency ICD Codes: E55.9 - Vitamin D deficiency, unspecified Plan: replacement ordered Problem Qualifiers (1) Acute renal failure: Qualified Codes: N17.9 - Acute kidney failure, unspecified (2) Anemia: Qualified Codes: D64.9 - Anemia, unspecified Francisco Javier Quiros MD Oct 28, 2016 10:11
[2016-10-28] MEDS: LACTOBACILLUS ACIDOPHILUS TAB PO SCH ×3 (10:48→17:00)
[2016-10-28] MEDS: hydrALAZINE HCL 25 MG TAB PO SCH ×2 (10:48→16:00)
[2016-10-28] MEDS: CHOLECALCIFEROL (VIT D3) 5000 UNIT CAP PO SCH (10:48)
[2016-10-28] MEDS: DOCUSATE SODIUM 50 MG/SENNA 8.6 MG TAB PO SCH ×2 (10:48→20:05)
[2016-10-28] MEDS: FAMOTIDINE 20 MG TAB PO SCH ×2 (10:49→20:05)
[2016-10-28] MEDS: SODIUM CHLORIDE 0.9% FLUSH 10 ML FLUSH IV FLUSH SCH ×2 (10:49→20:05)
[2016-10-28] MEDS: THIAMINE HCL 100 MG TAB PO SCH (10:49)
[2016-10-28] MEDS: LACTIC ACID (AMMONIUM LACTATE) 12% LOTION 225 GM BTL TOPICAL SCH ×2 (10:50→20:05)
[2016-10-28] MEDS: CHLORHEXIDINE 0.12% (ORAL KIT) 15 ML CUP MT SCH ×2 (10:50→20:00)
[2016-10-28 11:04] LABS: BICARBONATE 26.5 MEQ/L (21.0-32.0); POTASSIUM 3.2 MEQ/L (3.5-5.1)
--- NOTE | 2016-10-28 13:49 | HHI.PR ---
Subjective Remarks resting comfortably with no distress. pain is controlled. BP trend noted. d/w the RN. Objective Vitals Vital Signs Date Time Temp Pulse Resp B/P (MAP) Pulse Ox O2 Delivery O2 Flow Rate FiO2 10/28/16 12:00 98.3 84 18 () 98 186/94 (124) 10/28/16 11:20 100 Room Air 10/28/16 10:34 100 21 10/28/16 10:31 198/98 (131) 10/28/16 08:00 98.0 89 16 209/96 (133) 95 10/28/16 04:00 98.6 85 22 175/85 (115) 96 10/28/16 03:53 96 10/28/16 03:00 Room Air 10/28/16 00:00 98.6 89 20 176/81 (112) 97 10/27/16 23:00 Room Air 10/27/16 20:00 89 10/27/16 20:00 97.7 83 24 204/108 (140) 96 206/112 (143) 10/27/16 20:00 Room Air 10/27/16 16:00 98.4 84 20 184/89 (120) 94 I/O 10/27/16 10/27/16 10/27/16 10/28/16 10/28/16 10/28/16 07:00 15:00 23:00 07:00 15:00 23:00 Intake Total 240 ml 200 ml 480 ml Output Total 400 ml 500 ml Balance -160 ml 200 ml -20 ml Intake Oral 240 ml 480 ml IV Total 200 ml Output Urine Total 400 ml 500 ml # Bowel Movements 0 2 Result Diagram: 10/26/16 0700 10/28/16 0903 Imaging Last Impressions Liver Ultrasound 10/23/16 0000 Signed Impressions: Service Date/Time: Sunday, October 23, 2016 09:45 - CONCLUSION: 1. Gallbladder sludge 2. No evidence of biliary duct dilatation 3. Otherwise unremarkable exam. Jaiden Weston MD Head CT 10/19/16 1700 Signed Impressions: Service Date/Time: October 17:01 - CONCLUSION: No acute intracranial findings Ricco Kulkarni MD Head Magnetic Resonance Angiography 10/18/16 0000 Signed Impressions: Service Date/Time: Tuesday, October 18, 2016 16:23 - CONCLUSION: Normal examination. Ricco Kulkarni MD Chest X-Ray 10/18/16 Signed Impressions: Service Date/Time: Tuesday, October 18, 2016 14:59 - CONCLUSION: 1. Mild to moderate pulmonary vascular congestion. 2. Cardiomegaly. 3. Elevation of the right hemidiaphragm. 4. Endotracheal tube in good position 3 cm above the elsie. 5. Left internal jugular VasCath and left subclavian central line are stable in positions. Raymond Smith MD Brain MRI 10/18/16 Signed Impressions: Service Date/Time: Tuesday, October 18, 2016 16:11 - CONCLUSION: Nonspecific white matter signal change in the left frontal region. No evidence of acute stroke. Ricco Kulkarni MD Ankle X-Ray 10/14/16 Signed Impressions: Service Date/Time: Friday, October 14, 2016 17:01 - CONCLUSION: Marked soft tissue swelling with subcutaneous calcifications. Negative for fracture. Roman Montiel MD FACR Upper Extremity Ultrasound 10/13/16 Signed Impressions: Service Date/Time: Thursday, October 13, 2016 09:17 - CONCLUSION: 1. No DVT. 2. Subcutaneous edema observed. Wilner Potter Jr., MD Lower Extremity Ultrasound 10/13/16 Signed Impressions: Service Date/Time: Thursday, October 13, 2016 08:57 - CONCLUSION: 1. Study has some limitations as detailed above. No DVT observed. Wilner Potter Jr., MD Lower Extremity CT 10/13/16 Signed Impressions: Service Date/Time: Thursday, October 13, 2016 21:35 - CONCLUSION: Ulcer at the region of the base of the fifth metatarsal. There appears to be chronic and acute changes in this region. The acute changes are worrisome for osteomyelitis at the base of the fifth metatarsal. Ricco Fuentes MD Chest CT 10/13/16 Signed Impressions: Service Date/Time: Thursday, October 13, 2016 21:27 - CONCLUSION: 1. Patchy areas of consolidation seen bilaterally being worse on the right. These could represent areas of inflammatory/infectious disease. Focal round lesions to suggest septic emboli are not clearly identified. 2. Edema seen at the right superficial chest and abdomen regions. The cause of for this asymmetric edema is not known. 3. Mild ascites. Ricco Fuentes MD Abdomen CT 10/13/16 0000 Signed Impressions: Service Date/Time: Thursday, October 13, 2016 21:27 - CONCLUSION: 1. Mild ascites seen around the liver. 2. Superficial edema seen bilaterally in the subcutaneous tissues. This is asymmetric and being much more prominent on the right. 3. Small area of increased density seen independently in the gallbladder representing either small gallstones or milk of calcium. Ricco Fuentes MD Renal Ultrasound 10/12/16 0000 Signed Impressions: Service Date/Time: September 20:54 - CONCLUSION: Normal appearance of the kidneys. Ricco Fuentes MD Objective Remarks GENERAL: This is a well-nourished, well-developed patient, in no apparent distress. CARDIOVASCULAR: Regular rate and regular rhythm without murmurs, gallops, or rubs. RESPIRATORY: Clear to auscultation. Breath sounds equal bilaterally. No wheezes , rales, or rhonchi. GASTROINTESTINAL: Abdomen soft, non-tender, nondistended. Normal, active bowel sounds MUSCULOSKELETAL: Extremities without clubbing, cyanosis, or edema. NEURO: Alert & Oriented x4 to person, place, time, situation. Moves all ext x4 Medications and IVs Current Medications Sodium Chloride 1,000 ml @ 999 mls/hr BOLUS ONCE IV Last administered on 10/12 18:59; Start 10/12/16 at 18:15; Stop 10/12/16 at 19:15; Status DC Sodium Bicarbonate 150 meq/Sterile Water 1,000 ml @ 100 mls/hr Q10H IV Last administered on 10/12/16 23:39; Start 10/12/16 at 20:15; Stop 10/13/16 at 05:52 ; Status DC Sodium Chloride (NS Flush) 2 ml UNSCH PRN IV FLUSH FLUSH AFTER USING IV ACCESS ; Start 10/12/16 at 20:15 Sodium Chloride (NS Flush) 2 ml BID IV FLUSH Last administered on 10/28/16 10: 49; Start 10/12/16 at 21:00 Heparin Sodium (Porcine) (Heparin Inj) 5,000 units Q8H SQ Last administered on 10/18/16 12:42; Start 10/13/16 at 06:00; Stop 10/18/16 at 15:57; Status DC Naloxone HCl (Narcan Inj) 0.4 mg UNSCH PRN IV SEE LABEL COMMENTS; Start at 20:15 Calcium Gluconate (Calcium Gluconate Inj) 1 gm ONCE ONCE IV PUSH ; Start at 20:15; Stop 10/12/16 at 21:51; Status DC Insulin Human Regular (NovoLIN R INJ) 10 units ONCE ONCE IV PUSH Last administered on 10/12/16 23:54; Start 10/12/16 at 20:15; Stop 10/12/16 at 21:53 ; Status DC Dextrose (D50w (Syr) Inj) 50 ml ONCE ONCE IV PUSH Last administered on 23:53; Start 10/12/16 at 20:15; Stop 10/12/16 at 21:52; Status DC Sodium Polystyrene Sulfonate (Kayexalate Liq) 30 gm ONCE ONCE PO Last administered on 10/12/16 23:40; Start 10/12/16 at 20:15; Stop 10/12/16 at 21:54 ; Status DC Dextrose (D50w (Vial) Inj) 50 ml UNSCH PRN IV HYPOGLYCEMIA-SEE COMMENTS; Start 10/12/16 at 20:15; Stop 10/13/16 at 07:33; Status DC Glucagon (Glucagon Inj) 1 mg UNSCH PRN OTHER HYPOGLYCEMIA-SEE COMMENTS; Start 10/12/16 at 20:15 Insulin Aspart (NovoLOG SUPPLEMENTAL SCALE) 1 ACHS SLIDING SCALE SQ ; Start at 21:00; Stop 10/13/16 at 07:30; Status DC Calcium Gluconate 1 gm/Sodium Chloride 110 ml @ 110 mls/hr ONCE ONCE IV Last administered on 10/12/16 23:54; Start 10/12/16 at 23:00; Stop 10/12/16 at 23:59 ; Status DC Ipratropium [place] (Atrovent Neb) 0.5 mg Q6HR NEB NEB Last administered on 10:34; Start 10/13/16 at 04:00 Ipratropium [place] (Atrovent Neb) 0.5 mg Q2HR NEB PRN NEB wheezing; Start 10/13 at 00:45 Amitriptyline HCl (Elavil) 50 mg HS PO ; Start 10/13/16 at 21:00; Stop 10/13/16 at 21:00; Status DC Hydralazine HCl (Apresoline) 100 mg TID PO ; Start 10/13/16 at 09:00; Stop at 09:00; Status DC Insulin Detemir (Levemir Inj) 20 units AC BREAKFAST SQ ; Start 10/13/16 at 07:00 ; Stop 10/13/16 at 07:00; Status DC Insulin Detemir (Levemir Inj) 25 units HS SQ ; Start 10/13/16 at 21:00; Stop 10/13 at 21:00; Status DC Labetalol HCl (Trandate) 200 mg TID PO ; Start 10/13/16 at 09:00; Stop 10/13/16 at 09:00; Status DC Lactobacillus Acidophilus (Lactinex) 1 tab TIDAC PO Last administered on t 10:48; Start 10/13/16 at 08:00 Loratadine (Claritin) 10 mg DAILY PO ; Start 10/13/16 at 09:00; Stop 10/13/16 at 09:00; Status DC Montelukast Sodium (Singulair) 10 mg HS PO ; Start 10/13/16 at 21:00; Stop at 21:00; Status DC Nifedipine (Procardia Xl) 60 mg TID PO ; Start 10/13/16 at 09:00; Stop 10/13/16 at 09:00; Status DC Pravastatin Sodium (Pravachol) 40 mg DAILY PO ; Start 10/13/16 at 09:00; Stop 10/13/16 at 09:00; Status DC Sodium Chloride 1,000 ml @ 999 mls/hr BOLUS ONCE IV Last administered on t 05:42; Start 10/13/16 at 04:45; Stop 10/13/16 at 05:45; Status DC Sodium Bicarbonate 150 meq/Dextrose 1,150 ml @ 75 mls/hr [id number] IV ; Start 10/13/16 at 08:00; Stop 10/13/16 at 08:00; Status DC Norepinephrine Bitartrate 250 ml @ As Directed STK-MED ONCE IV ; Start 10/13/16 at 07:25; Stop 10/13/16 at 07:26; Status DC Norepinephrine Bitartrate 250 ml @ 7.5 mls/hr TITRATE PRN IV Blood pressure management; Start 10/13/16 at 07:30; Status UNV Terbutaline Sulfate (Brethine Inj) 1 mg UNSCH PRN SQ For Extravasation; Start 10/13/16 at 07:30; Stop 10/28/16 at 11:24; Status DC Sodium Bicarbonate (Sodium Bicarbonate 8.4% Inj) 200 meq ONCE ONCE IV PUSH Last administered on 10/13/16 07:30; Start 10/13/16 at 07:30; Stop 10/13/16 at 07: 35; Status DC Dextrose (D50w (Vial) Inj) 25 ml UNSCH PRN IV PUSH HYPOGLYCEMIA-SEE COMMENTS; Start 10/13/16 at 07:30 Insulin Human Regular (NovoLIN R SUPPLEMENTAL SCALE) 1 Q6HR SQ Last administered on 10/26/16 12:00; Start 10/13/16 at 12:00 Linezolid 300 ml @ 300 mls/hr Q12H IV ; Start 10/13/16 at 08:00; Stop 10/13/16 at 08:07; Status DC Piperacillin Sod/ Tazobactam Sod 50 ml @ 100 mls/hr Q8H IV Last administered on 10/13/16 09:07; Start 10/13/16 at 09:00; Stop 10/13/16 at 14:13; Status DC Norepinephrine Bitartrate 16 mg/ Dextrose 250 ml @ 1.87 mls/hr TITRATE PRN IV Maintain MAP > 65 mmHg; Start 10/13/16 at 08:00; Stop 10/28/16 at 11:24; Status DC Epinephrine HCl 2 mg/Dextrose 252 ml @ 15.12 mls/ hr TITRATE PRN IV Blood Pressure Management; Start 10/13/16 at 08:15; Stop 10/13/16 at 08:47; Status DC Ketamine HCl (Ketalar Inj) 50 mg STAT ONCE IV PUSH ; Start 10/13/16 at 08:15; Stop 10/13/16 at 08:33; Status DC Midazolam HCl (Versed Inj) 2 mg STAT ONCE IV PUSH ; Start 10/13/16 at 08:15; Stop 10/13/16 at 08:31; Status DC Clindamycin Phosphate 900 mg/ Sodium Chloride 106 ml @ 212 mls/hr Q8H IV Last administered on 10/13/16 09:07; Start 10/13/16 at 09:00; Stop 10/13/16 at 13:55; Status DC Epinephrine HCl 8 mg/Dextrose 250 ml @ 5.62 mls/hr TITRATE PRN IV Blood Pressure Management Last administered on 10/13/16 09:07; Start 10/13/16 at 09:00 ; Stop 10/28/16 at 11:24; Status DC Sodium Bicarbonate (Sodium Bicarbonate 8.4% Inj) 200 meq ONCE ONCE IV PUSH Last administered on 10/13/16 11:43; Start 10/13/16 at 11:30; Stop 10/13/16 at 11: 31; Status DC Etomidate (Amidate Inj) 20 mg ONCE ONCE IV PUSH ; Start 10/13/16 at 13:15; Stop 10/13/16 at 14:37; Status DC Midazolam HCl (Versed Inj) 5 mg ONCE ONCE IV PUSH Last administered on 13:15; Start 10/13/16 at 13:15; Stop 10/13/16 at 14:37; Status DC Rocuronium [place] (Zemuron Inj) 100 mg BOLUS ONCE IV Last administered on 10/13 13:15; Start 10/13/16 at 13:15; Stop 10/13/16 at 14:37; Status DC Midazolam HCl (Versed Inj) 5 mg STK-MED ONCE .ROUTE Last administered on 13:20; Start 10/13/16 at 13:20; Stop 10/13/16 at 13:21; Status DC Micafungin Sodium 150 mg/Sodium Chloride 100 ml @ 100 mls/hr Q24H IV Last administered on 10/16/16 16:12; Start 10/13/16 at 17:00; Stop 10/16/16 at 17:40; Status DC Daptomycin 1000 mg/Sodium Chloride 100 ml @ 200 mls/hr Q48H IV Last administered on 10/27/16 16:58; Start 10/13/16 at 16:00; Stop 10/30/16 at 15:59 Cefepime HCl 1000 mg/Sodium Chloride 100 ml @ 200 mls/hr Q24H IV Last administered on 10/27/16 13:56; Start 10/13/16 at 15:00 Metronidazole 100 ml @ 100 mls/hr Q8H IV Last administered on 10/16/16 15:13; Start 10/13/16 at 16:00; Stop 10/16/16 at 17:40; Status DC Propofol 100 ml @ As Directed STK-MED ONCE .ROUTE ; Start 10/13/16 at 15:31; Stop 10/13/16 at 15:32; Status DC Sodium Chloride 1,000 ml @ 0 mls/hr Q0M PRN OTHER For Prime & Rinse Back Last administered on 10/21/16 10:43; Start 10/13/16 at 15:54 Heparin Sodium (Porcine) (Heparin Inj) 8,000 units UNSCH PRN IVF WITH DIALYSIS ; Start 10/13/16 at 16:00 Sodium Chloride 1,000 ml @ 200 mls/hr Q5H PRN IV WITH DIALYSIS; Start 10/13/16 at 15:54 Sodium Chloride 1,000 ml @ 0 mls/hr Q0M PRN OTHER WITH DIALYSIS; Start 10/13/16 at 15:54 Mannitol (Mannitol Inj) 12.5 gm UNSCH PRN IV WITH DIALYSIS; Start 10/13/16 at 16 :00 Albumin Human (Albumin 25% Inj) 25 gm UNSCH PRN IV WITH DIALYSIS Last administered on 10/14/16 08:19; Start 10/13/16 at 16:00 Sodium Chloride (NS Flush) 5 ml UNSCH PRN IV FLUSH WITH DIALYSIS Last administered on 10/21/16 10:42; Start 10/13/16 at 16:00 Heparin Sodium (Porcine) (Heparin Inj) UNSCH PRN .XX WITH DIALYSIS Last administered on 10/26/16 16:53; Start 10/13/16 at 16:00 Gentamicin Sulfate (Gentamicin (Dialysis) Inj) 20 mg UNSCH PRN IV WITH DIALYSIS Last administered on 10/26/16 16:53; Start 10/13/16 at 16:00 Ondansetron HCl (Zofran Inj) 4 mg UNSCH PRN IV WITH DIALYSIS; Start 10/13/16 at 16:00 Acetaminophen (Tylenol) 650 mg UNSCH PRN PO for headach, pain, temp > 101F Last administered on 10/21/16 20:36; Start 10/13/16 at 16:00 Diphenhydramine HCl (Benadryl) 25 mg UNSCH PRN PO for hives/itching/ anaphylaxis Last administered on 10/28/16 06:35; Start 10/13/16 at 16:00 Nitroglycerin (Nitrostat Sl) 0.4 mg UNSCH PRN SL CHEST PAIN; Start 10/13/16 at 16:00 Clonidine (Catapres) 0.1 mg UNSCH PRN PO for BP > 180/100 X 2 readings Last administered on 10/28/16 06:35; Start 10/13/16 at 16:00 Gelatin (Gelfoam 12 Mm/7 Mm Top) 1 foam UNSCH PRN TOP SEE LABEL COMMENTS Last administered on 10/15/16 10:39; Start 10/13/16 at 16:00 Propofol 100 ml @ As Directed STK-MED ONCE .ROUTE ; Start 10/13/16 at 18:39; Stop 10/13/16 at 18:40; Status DC Propofol 100 ml @ 4.128 mls/ hr TITRATE PRN IV SEDATION Last administered on 13:36; Start 10/13/16 at 19:15; Stop 10/28/16 at 11:24; Status DC Famotidine (Pepcid Liq) 20 mg BID NG Last administered on 10/15/16 09:19; Start 10/14/16 at 21:00; Stop 10/15/16 at 10:04; Status DC Silver Nitrate/ Potassium Nitrate (Silver Nitrate Applicators) 1 appl UNSCH X1 ONCE TOPICAL Last administered on 10/15/16 09:19; Start 10/15/16 at 09:00; Stop 10/15/16 at 09:01; Status DC Famotidine (Pepcid Liq) 10 mg BID NG Last administered on 10/21/16 09:00; Start 10/15/16 at 21:00; Stop 10/21/16 at 20:09; Status DC Diphenhydramine HCl (Benadryl) 25 mg BID PO Last administered on 10/17/16 08:55 ; Start 10/15/16 at 21:00; Stop 10/17/16 at 09:01; Status DC Dexamethasone Sodium Phosphate (Decadron Inj) 4 mg Q6HR IV PUSH Last administered on 10/16/16 17:57; Start 10/16/16 at 10:00; Stop 10/16/16 at 18:01; Status DC Hydralazine HCl (Apresoline Inj) 20 mg Q3H PRN IV PUSH SBP > 170 Last administered on 10/27/16 22:28; Start 10/16/16 at 15:45 Labetalol HCl (Trandate Inj) 20 mg Q3H PRN IV PUSH SBP > 160 Last administered on 10/21/16 22:05; Start 10/16/16 at 15:45 Atropine Sulfate (Atropine Inj) 1 mg STK-MED ONCE IV ; Start 10/13/16 at 05:00; Stop 10/17/16 at 11:07; Status DC Sodium Bicarbonate (Sodium Bicarbonate 8.4% Inj) 50 meq STK-MED ONCE IV ; Start 10/13/16 at 05:00; Stop 10/17/16 at 11:08; Status DC Sodium Chloride 250 ml @ 15 mls/hr ONCE ONCE IV ; Start 10/18/16 at 09:30; Stop 10/19/16 at 02:09; Status DC Epinephrine HCl (EPINEPHrine (1:10,000) INJ) 1 mg STK-MED ONCE .ROUTE ; Start at 14:51; Stop 10/18/16 at 14:52; Status DC Alteplase, Recombinant (Activase Bolus) 9 mg ONCE ONCE IV Last administered on 10/18/16 16:00; Start 10/18/16 at 16:00; Stop 10/18/16 at 16:03; Status DC Alteplase, Recombinant 81 mg/ Syringe / Bag 81 ml @ 81 mls/hr ONCE ONCE IV Last administered on 10/18/16 16:01; Start 10/18/16 at 16:00; Stop 10/18/16 at 16: 59; Status DC Sodium Chloride (NS Inj) 30 ml ONCE ONCE IVF Last administered on 10/18/16 16: 00; Start 10/18/16 at 16:00; Stop 10/18/16 at 16:02; Status DC Miscellaneous Information No Heparin, Warfarin, Aspir... UNSCH PRN XX SEE DOSE INSTRUCTIONS; Start 10/18/16 at 16:00; Stop 10/19/16 at 15:59; Status DC Micafungin Sodium 150 mg/Sodium Chloride 100 ml @ 100 mls/hr Q24H IV Last administered on 10/18/16 18:32; Start 10/18/16 at 18:00; Stop 10/19/16 at 14:43; Status DC Chlorhexidine Gluconate (Peridex 0.12% Liq) 15 ml BID@08,20 MT Last administered on 10/28/16 10:50; Start 10/18/16 at 20:00 Dexamethasone Sodium Phosphate (Decadron Inj) 4 mg STAT ONCE IV PUSH Last administered on 10/19/16 11:50; Start 10/19/16 at 11:15; Stop 10/19/16 at 11:16; Status DC Racepinephrine (Racepinephrine 2.25% Neb) 0.5 ml STK-MED ONCE .ROUTE ; Start 10/19/16 at 13:19; Stop 10/19/16 at 13:20; Status DC Diphenhydramine HCl (Benadryl) 25 mg Q6H PRN PO ITCHING Last administered on 11:57; Start 10/21/16 at 15:30; Stop 10/23/16 at 10:29; Status DC Famotidine (Pepcid) 10 mg BID PO Last administered on 10/28/16 10:49; Start at 21:00 Calamine (Calamine Lotion) 1 applic Q6H PRN TOPICAL irritated skin Last administered on 10/21/16 23:47; Start 10/21/16 at 22:30 Thiamine HCl (Vitamin B1) 100 mg DAILY PO Last administered on 10/28/16 10:49 ; Start 10/23/16 at 09:00 Diphenhydramine HCl (Benadryl) 50 mg Q6H PRN PO ITCHING Last administered on 10:48; Start 10/23/16 at 15:30 Senna/Docusate Sodium (Maira-Colace) 2 tab ONCE ONCE PO Last administered on 12:11; Start 10/23/16 at 10:30; Stop 10/23/16 at 11:05; Status DC Magnesium Hydroxide (Milk Of Magnesia Liq) 30 ml ONCE ONCE PO Last administered on 10/23/16 12:11; Start 10/23/16 at 10:30; Stop 10/23/16 at 11:06 ; Status DC Senna/Docusate Sodium (Maira-Colace) 1 tab BID PO Last administered on 10:48; Start 10/23/16 at 21:00 Lactic Acid (Lac-Hydrin 12% Lotion) 1 applic BID TOPICAL Last administered on 10:50; Start 10/23/16 at 21:00 Cholecalciferol (Vitamin D3) 5,000 units DAILY PO Last administered on 10:48; Start 10/24/16 at 09:00 Cholecalciferol (Vitamin D3) 10,000 units ONCE ONCE PO Last administered on 18:06; Start 10/23/16 at 17:45; Stop 10/23/16 at 17:46; Status DC Senna/Docusate Sodium (Maira-Colace) 1 tab BID PO ; Start 10/24/16 at 21:00; Stop 10/24/16 at 21:00; Status DC Fluconazole (Diflucan) 100 mg Q48H PO Last administered on 10/26/16 19:22; Start 10/24/16 at 17:00 Hydralazine HCl (Apresoline) 25 mg Q12HR PO Last administered on 10/28/16 10: 48; Start 10/26/16 at 11:30 Diphenhydramine HCl (Benadryl 2% Cream) APPLY TO AFFECTED AREA Q4H PRN TOPICAL ITCHING; Start 10/27/16 at 17:30 A/P Assessment and Plan Suspected stroke alert with acute change in neurologic status Possible surreptitious benzodiazepine use Metabolic Encephalopathy secondary to Uremia and sepsis - neuro checks. -Stat head CT negative for bleed. Patient was administered IV thrombolysis following evaluation by neurology Dr. Burton in view of concern for brain stem CVA while awaiting MRI brain on 10/18. Subsequently MRI/MRA brain unremarkable. - Urine tox screen came back positive for benzodiazepines placing concern for surreptitious benzodiazepine use as she does not have any benzodiazepine listed on her MAR. Obesity Hypoventilation Syndrome COPD Sleep Apnea Acute hypoxic and hypercarbic respiratory failure- persistent, no improvement. Pulmonary Edema - intubated 91 for progressive hypoxia - extubated 10/16. -Emergently intubated on 10/18 for airway protection due to altered mental status. Extubated on 10/19, tolerating well Septic Shock- resolving. pseudomonas bacteremia Severe Tricuspid Regurgitation IV antibiotics per ID recommendations. Acute oligo anuric kidney injury requiring renal replacement therapy - nephrology following - HD per nephrology. -- Strict IOs Severe metabolic acidosis- resolved Hyperkalemia- resolved. Morbid Obesity Advance by mouth diet Chronic anemia- likely secondary to chronic disease Septic Shock LLE osteomyelitis Pseudomonas bacteremia Gram Positive Bacteremia Pseudomonas osteomyelitis Fungal Urinary Tract Infection -Recommend transfusions of PRBCs to keep hemoglobin above 7 g percent. - follow up sensitivities - ID following. - continue BSAbx. Diabetes -Vitamin D deficiency. -- Patient had low vitamin D and was started on cholecalciferol. -- SSI, medium scale, every 6 hypertension-uncontrolled one dose of procardia today- increase hydralazine continue to monitor and adjust the regimen as needed. GI Prophylaxis pepcid DVT Prophylaxis -- SCDs Sub-cutaneous heparin Roseanna Murphy MD Oct 28, 2016 13:49
[2016-10-28] MEDS ORDERED: NIFEdipine 30 MG SUSTAINED RELEASE TAB PO ONE (14:30)
[2016-10-28] MEDS: SODIUM CHLOR 0.9% 1000 ML INJ 1,000 ML IV PRN (17:35)
[2016-10-28] MEDS: HEPARIN SODIUM - IV 10,000 UNITS/10 ML VIAL PRN (17:35)
[2016-10-28] MEDS: GENTAMICIN SULFATE (DIALYSIS USE ONLY) 20 MG/2 ML VIAL IV PRN (17:36)
[2016-10-28] MEDS: FLUCONAZOLE 100 MG TAB PO SCH (18:21)
[2016-10-28] MEDS: CEFEPIME INJ 1,000 MG in SODIUM CHLORIDE 0.9% INJ 100 ML IV SCH (18:28)
[2016-10-29] VITALS (16 sets, daily range): BP systolic 168–190; BP diastolic 78–102; PULSE 84–92; RESP 18–22; TEMP 98–98.5; O2SAT 91–99
[2016-10-29] MEDS: hydrALAZINE HCL 25 MG TAB PO SCH ×3 (01:00→15:25)
[2016-10-29] MEDS: diphenhydrAMINE HCL 50 MG CAP PO PRN ×3 (01:02→21:47)
[2016-10-29] MEDS: RESP: IPRATROPIUM 0.5 MG/2.5 ML NEB NEB SCH ×4 (03:21→22:27)
[2016-10-29] MEDS: INSULIN NovoLIN REGULAR SUPPLEMENTAL SCALE SQ SCH ×3 (05:57→18:00)
[2016-10-29] MEDS: CHLORHEXIDINE 0.12% (ORAL KIT) 15 ML CUP MT SCH ×2 (08:00→20:00)
[2016-10-29] MEDS: CHOLECALCIFEROL (VIT D3) 5000 UNIT CAP PO SCH (09:00)
[2016-10-29] MEDS: LACTOBACILLUS ACIDOPHILUS TAB PO SCH ×3 (10:59→17:00)
[2016-10-29] MEDS: DOCUSATE SODIUM 50 MG/SENNA 8.6 MG TAB PO SCH ×2 (10:59→21:00)
[2016-10-29] MEDS: THIAMINE HCL 100 MG TAB PO SCH (10:59)
[2016-10-29] MEDS: FAMOTIDINE 20 MG TAB PO SCH ×2 (10:59→21:44)
[2016-10-29] MEDS: LACTIC ACID (AMMONIUM LACTATE) 12% LOTION 225 GM BTL TOPICAL SCH ×2 (11:00→21:00)
[2016-10-29] MEDS: SODIUM CHLORIDE 0.9% FLUSH 10 ML FLUSH IV FLUSH SCH ×2 (11:00→21:00)
--- NOTE | 2016-10-29 11:55 | HHI.NPPN ---
Subjective General Problems: Anemia Renal Failure: Acute Interval History Had dialysis yesterday, 4 liters removed. Patient continues to have itching all over her body, she is requesting something stronger than Benadryl for symptom relief. Review of Systems General Constitutional: Fatigue Ears, Nose, & Throat ENT Remarks loss of appetite Respiratory Lungs: SOB Cardiovascular Cardiac: Edema Endocrine Endocrine: Thirst Skin Skin: Skin Rash, Ulcers Skin Remarks generalized rash with peeling skin; ulcer planter surface left foot Objective Data Data Vital Signs Date Time Temp Pulse Resp B/P (MAP) Pulse Ox O2 Delivery O2 Flow Rate FiO2 10/29/16 08:41 97 21 10/29/16 08:00 98.0 86 19 170/78 (108) 91 10/29/16 06:29 170/98 (122) 10/29/16 06:00 98.4 86 20 99 10/29/16 04:00 Room Air 10/29/16 03:32 96 10/29/16 02:12 168/102 (124) 10/29/16 00:00 Room Air 10/29/16 00:00 88 10/29/16 00:00 98.2 92 22 176/90 (118) 96 10/28/16 20:01 Room Air 10/28/16 20:00 98.2 90 21 190/82 (118) 100 10/28/16 18:30 98.1 87 22 202/94 (130) 99 10/28/16 14:59 98.1 84 20 198/93 (128) 98 10/28/16 12:00 98.3 84 18 () 98 186/94 (124) -: 10/26/16 0700 10/28/16 0903 Tubes & Lines: Vas-Cath, Black Physical Exam General Appearance: Well Developed, No Acute Distress, Comfortable, Obese Appearance Remarks intubated. Eyes Eye Exam: Pupils Equal Throat Throat Exam: Oral Mucosa [place] & Moist Neck Neck Exam: Neck Supple Pulmonary Resp Exam: Breath Sounds Equal, No Distress, Rhonchi, Decreased Bases Cardiology CV Exam: Regular, Normal Sinus Rhythm, Good Perfusion Gastrointestinal/Abdomen GI Exam: Soft, Non-Tender, Bowel Sounds Present GI Remarks obese. Musculoskeletal MS Exam: Joints Intact, Normal Tone, Unable to Ambulate Integumentary Skin Exam: Warm, Dry, Intact Skin Remarks skin desquamation. Extremeties Extremities Exam: Pedal Pulses Palpable, Moderate Edema, Dependent Edema Neurologic Neuro Exam: Alert, Awake, Oriented, Speech Clear, Moving All Extremities Neuro Remarks appears to be awake, appears to follow some commands. Psychiatric Psych Exam: Appropriate Responses Assessment/Plan Discussed Condition With: Patient Assessment Summary: FREDI/Acute Renal Failure Problem List: (1) Acute renal failure ICD Codes: N17.9 - Acute kidney failure, unspecified Status: Acute Plan: She apparently has a baseline creatinine of 1mg/dL FREDI from ATN, secondary to dehydration, also the possibility of vancomycin induced nephrotoxicity, allergic interstitial nephritis. may also be due to sepsis Non olgiuric HD initiated on 10/13/16, on TTS HD schedule Continue to monitor renal function, await renal recovery She has vascath in place; may need permcath exchange if HD will be ongoing; however given sepsis will delay exchange at this time and will need ID approval. Avoid nephrotoxic agents such as iodinated contrast, aminoglycosides, NSAIDS if possible. (2) Sepsis ICD Codes: A41.9 - Sepsis, unspecified organism Plan: + Pseudomonas in the blood, and gram stain of the wound. Currently on Cefepime (x 6 weeks) and Daptomycin (until 10/30). Oral Diflucan was added for valencia in urine remove black catheter if no reason to keep it in ID is following PICC removed on admission (3) Hyperkalemia ICD Codes: E87.5 - Hyperkalemia Status: Acute Plan: Resolved. (4) Metabolic acidosis ICD Codes: E87.2 - Acidosis Status: Acute Plan: Corrected, monitor (5) Anemia ICD Codes: D64.9 - Anemia Status: Acute Plan: Hb improved, monitor (6) Vitamin D deficiency ICD Codes: E55.9 - Vitamin D deficiency, unspecified Plan: replacement ordered Problem Qualifiers (1) Acute renal failure: Qualified Codes: N17.9 - Acute kidney failure, unspecified (2) Anemia: Qualified Codes: D64.9 - Anemia, unspecified Francisco Javier Quiros MD Oct 29, 2016 11:55
--- NOTE | 2016-10-29 12:03 | HHI.PR ---
Subjective Remarks in no acute distress. complaining of dry skin and generalized itching. no fever. d/w the RN. Objective Vitals Vital Signs Date Time Temp Pulse Resp B/P (MAP) Pulse Ox O2 Delivery O2 Flow Rate FiO2 10/29/16 08:41 97 21 10/29/16 08:00 98.0 86 19 170/78 (108) 91 10/29/16 06:29 170/98 (122) 10/29/16 06:00 98.4 86 20 99 10/29/16 04:00 Room Air 10/29/16 03:32 96 10/29/16 02:12 168/102 (124) 10/29/16 00:00 Room Air 10/29/16 00:00 88 10/29/16 00:00 98.2 92 22 176/90 (118) 96 10/28/16 20:01 Room Air 10/28/16 20:00 98.2 90 21 190/82 (118) 100 10/28/16 18:30 98.1 87 22 202/94 (130) 99 10/28/16 14:59 98.1 84 20 198/93 (128) 98 10/28/16 12:00 98.3 84 18 () 98 186/94 (124) I/O 10/28/16 10/28/16 10/28/16 10/29/16 10/29/16 10/29/16 07:00 15:00 23:00 07:00 15:00 23:00 Intake Total 480 ml 240 ml 420 ml 240 ml Output Total 500 ml 150 ml 4300 ml 300 ml Balance -20 ml 90 ml -3880 ml -60 ml Intake Oral 480 ml 240 ml 420 ml 240 ml Output Urine Total 500 ml 150 ml 300 ml 300 ml Hemodialysis 4000 ml # Bowel Movements 2 0 0 2 Result Diagram: 10/26/16 0700 10/28/16 0903 Imaging Last Impressions Liver Ultrasound 10/23/16 0000 Signed Impressions: Service Date/Time: Sunday, October 23, 2016 09:45 - CONCLUSION: 1. Gallbladder sludge 2. No evidence of biliary duct dilatation 3. Otherwise unremarkable exam. Jaiden Weston MD Head CT 10/19/16 1700 Signed Impressions: Service Date/Time: October 17:01 - CONCLUSION: No acute intracranial findings Ricco Kulkarni MD Head Magnetic Resonance Angiography 10/18/16 Signed Impressions: Service Date/Time: Tuesday, October 18, 2016 16:23 - CONCLUSION: Normal examination. Ricco Kulkarni MD Chest X-Ray 10/18/16 Signed Impressions: Service Date/Time: Tuesday, October 18, 2016 14:59 - CONCLUSION: 1. Mild to moderate pulmonary vascular congestion. 2. Cardiomegaly. 3. Elevation of the right hemidiaphragm. 4. Endotracheal tube in good position 3 cm above the elsie. 5. Left internal jugular VasCath and left subclavian central line are stable in positions. Raymond Smith MD Brain MRI 10/18/16 Signed Impressions: Service Date/Time: Tuesday, October 18, 2016 16:11 - CONCLUSION: Nonspecific white matter signal change in the left frontal region. No evidence of acute stroke. Ricco Kulkarni MD Ankle X-Ray 10/14/16 Signed Impressions: Service Date/Time: Friday, October 14, 2016 17:01 - CONCLUSION: Marked soft tissue swelling with subcutaneous calcifications. Negative for fracture. Roman Montiel MD FACR Upper Extremity Ultrasound 10/13/16 Signed Impressions: Service Date/Time: Thursday, October 13, 2016 09:17 - CONCLUSION: 1. No DVT. 2. Subcutaneous edema observed. Wilner Potter Jr., MD Lower Extremity Ultrasound 10/13/16 Signed Impressions: Service Date/Time: Thursday, October 13, 2016 08:57 - CONCLUSION: 1. Study has some limitations as detailed above. No DVT observed. Wilner Potter Jr., MD Lower Extremity CT 10/13/16 Signed Impressions: Service Date/Time: Thursday, October 13, 2016 21:35 - CONCLUSION: Ulcer at the region of the base of the fifth metatarsal. There appears to be chronic and acute changes in this region. The acute changes are worrisome for osteomyelitis at the base of the fifth metatarsal. Ricco Fuentes MD Chest CT 10/13/16 Signed Impressions: Service Date/Time: Thursday, October 13, 2016 21:27 - CONCLUSION: 1. Patchy areas of consolidation seen bilaterally being worse on the right. These could represent areas of inflammatory/infectious disease. Focal round lesions to suggest septic emboli are not clearly identified. 2. Edema seen at the right superficial chest and abdomen regions. The cause of for this asymmetric edema is not known. 3. Mild ascites. Ricco Fuentes MD Abdomen CT 10/13/16 0000 Signed Impressions: Service Date/Time: Thursday, October 13, 2016 21:27 - CONCLUSION: 1. Mild ascites seen around the liver. 2. Superficial edema seen bilaterally in the subcutaneous tissues. This is asymmetric and being much more prominent on the right. 3. Small area of increased density seen independently in the gallbladder representing either small gallstones or milk of calcium. Ricco Fuentes MD Renal Ultrasound 10/12/16 0000 Signed Impressions: Service Date/Time: September 20:54 - CONCLUSION: Normal appearance of the kidneys. Ricco Fuentes MD Objective Remarks GENERAL: This is a well-nourished, well-developed patient, in no apparent distress. CARDIOVASCULAR: Regular rate and regular rhythm without murmurs, gallops, or rubs. RESPIRATORY: Clear to auscultation. Breath sounds equal bilaterally. No wheezes , rales, or rhonchi. GASTROINTESTINAL: Abdomen soft, non-tender, nondistended. Normal, active bowel sounds MUSCULOSKELETAL: Extremities without clubbing, cyanosis, or edema. NEURO: Alert & Oriented x4 to person, place, time, situation. Moves all ext x4 Medications and IVs Current Medications Sodium Chloride 1,000 ml @ 999 mls/hr BOLUS ONCE IV Last administered on 10/12 18:59; Start 10/12/16 at 18:15; Stop 10/12/16 at 19:15; Status DC Sodium Bicarbonate 150 meq/Sterile Water 1,000 ml @ 100 mls/hr Q10H IV Last administered on 10/12/16 23:39; Start 10/12/16 at 20:15; Stop 10/13/16 at 05:52 ; Status DC Sodium Chloride (NS Flush) 2 ml UNSCH PRN IV FLUSH FLUSH AFTER USING IV ACCESS ; Start 10/12/16 at 20:15 Sodium Chloride (NS Flush) 2 ml BID IV FLUSH Last administered on 10/29/16 11: 00; Start 10/12/16 at 21:00 Heparin Sodium (Porcine) (Heparin Inj) 5,000 units Q8H SQ Last administered on 10/18/16 12:42; Start 10/13/16 at 06:00; Stop 10/18/16 at 15:57; Status DC Naloxone HCl (Narcan Inj) 0.4 mg UNSCH PRN IV SEE LABEL COMMENTS; Start at 20:15 Calcium Gluconate (Calcium Gluconate Inj) 1 gm ONCE ONCE IV PUSH ; Start at 20:15; Stop 10/12/16 at 21:51; Status DC Insulin Human Regular (NovoLIN R INJ) 10 units ONCE ONCE IV PUSH Last administered on 10/12/16 23:54; Start 10/12/16 at 20:15; Stop 10/12/16 at 21:53 ; Status DC Dextrose (D50w (Syr) Inj) 50 ml ONCE ONCE IV PUSH Last administered on 23:53; Start 10/12/16 at 20:15; Stop 10/12/16 at 21:52; Status DC Sodium Polystyrene Sulfonate (Kayexalate Liq) 30 gm ONCE ONCE PO Last administered on 10/12/16 23:40; Start 10/12/16 at 20:15; Stop 10/12/16 at 21:54 ; Status DC Dextrose (D50w (Vial) Inj) 50 ml UNSCH PRN IV HYPOGLYCEMIA-SEE COMMENTS; Start 10/12/16 at 20:15; Stop 10/13/16 at 07:33; Status DC Glucagon (Glucagon Inj) 1 mg UNSCH PRN OTHER HYPOGLYCEMIA-SEE COMMENTS; Start 10/12/16 at 20:15 Insulin Aspart (NovoLOG SUPPLEMENTAL SCALE) 1 ACHS SLIDING SCALE SQ ; Start at 21:00; Stop 10/13/16 at 07:30; Status DC Calcium Gluconate 1 gm/Sodium Chloride 110 ml @ 110 mls/hr ONCE ONCE IV Last administered on 10/12/16 23:54; Start 10/12/16 at 23:00; Stop 10/12/16 at 23:59 ; Status DC Ipratropium Independence (Atrovent Neb) 0.5 mg Q6HR NEB NEB Last administered on 08:41; Start 10/13/16 at 04:00 Ipratropium Independence (Atrovent Neb) 0.5 mg Q2HR NEB PRN NEB wheezing; Start 10/13 at 00:45 Amitriptyline HCl (Elavil) 50 mg HS PO ; Start 10/13/16 at 21:00; Stop 10/13/16 at 21:00; Status DC Hydralazine HCl (Apresoline) 100 mg TID PO ; Start 10/13/16 at 09:00; Stop at 09:00; Status DC Insulin Detemir (Levemir Inj) 20 units AC BREAKFAST SQ ; Start 10/13/16 at 07:00 ; Stop 10/13/16 at 07:00; Status DC Insulin Detemir (Levemir Inj) 25 units HS SQ ; Start 10/13/16 at 21:00; Stop 10/13 at 21:00; Status DC Labetalol HCl (Trandate) 200 mg TID PO ; Start 10/13/16 at 09:00; Stop 10/13/16 at 09:00; Status DC Lactobacillus Acidophilus (Lactinex) 1 tab TIDAC PO Last administered on t 10:59; Start 10/13/16 at 08:00 Loratadine (Claritin) 10 mg DAILY PO ; Start 10/13/16 at 09:00; Stop 10/13/16 at 09:00; Status DC Montelukast Sodium (Singulair) 10 mg HS PO ; Start 10/13/16 at 21:00; Stop at 21:00; Status DC Nifedipine (Procardia Xl) 60 mg TID PO ; Start 10/13/16 at 09:00; Stop 10/13/16 at 09:00; Status DC Pravastatin Sodium (Pravachol) 40 mg DAILY PO ; Start 10/13/16 at 09:00; Stop 10/13/16 at 09:00; Status DC Sodium Chloride 1,000 ml @ 999 mls/hr BOLUS ONCE IV Last administered on t 05:42; Start 10/13/16 at 04:45; Stop 10/13/16 at 05:45; Status DC Sodium Bicarbonate 150 meq/Dextrose 1,150 ml @ 75 mls/hr [id number] IV ; Start 10/13/16 at 08:00; Stop 10/13/16 at 08:00; Status DC Norepinephrine Bitartrate 250 ml @ As Directed STK-MED ONCE IV ; Start 10/13/16 at 07:25; Stop 10/13/16 at 07:26; Status DC Norepinephrine Bitartrate 250 ml @ 7.5 mls/hr TITRATE PRN IV Blood pressure management; Start 10/13/16 at 07:30; Status UNV Terbutaline Sulfate (Brethine Inj) 1 mg UNSCH PRN SQ For Extravasation; Start 10/13/16 at 07:30; Stop 10/28/16 at 11:24; Status DC Sodium Bicarbonate (Sodium Bicarbonate 8.4% Inj) 200 meq ONCE ONCE IV PUSH Last administered on 10/13/16 07:30; Start 10/13/16 at 07:30; Stop 10/13/16 at 07: 35; Status DC Dextrose (D50w (Vial) Inj) 25 ml UNSCH PRN IV PUSH HYPOGLYCEMIA-SEE COMMENTS; Start 10/13/16 at 07:30 Insulin Human Regular (NovoLIN R SUPPLEMENTAL SCALE) 1 Q6HR SQ Last administered on 10/26/16 12:00; Start 10/13/16 at 12:00 Linezolid 300 ml @ 300 mls/hr Q12H IV ; Start 10/13/16 at 08:00; Stop 10/13/16 at 08:07; Status DC Piperacillin Sod/ Tazobactam Sod 50 ml @ 100 mls/hr Q8H IV Last administered on 10/13/16 09:07; Start 10/13/16 at 09:00; Stop 10/13/16 at 14:13; Status DC Norepinephrine Bitartrate 16 mg/ Dextrose 250 ml @ 1.87 mls/hr TITRATE PRN IV Maintain MAP > 65 mmHg; Start 10/13/16 at 08:00; Stop 10/28/16 at 11:24; Status DC Epinephrine HCl 2 mg/Dextrose 252 ml @ 15.12 mls/ hr TITRATE PRN IV Blood Pressure Management; Start 10/13/16 at 08:15; Stop 10/13/16 at 08:47; Status DC Ketamine HCl (Ketalar Inj) 50 mg STAT ONCE IV PUSH ; Start 10/13/16 at 08:15; Stop 10/13/16 at 08:33; Status DC Midazolam HCl (Versed Inj) 2 mg STAT ONCE IV PUSH ; Start 10/13/16 at 08:15; Stop 10/13/16 at 08:31; Status DC Clindamycin Phosphate 900 mg/ Sodium Chloride 106 ml @ 212 mls/hr Q8H IV Last administered on 10/13/16 09:07; Start 10/13/16 at 09:00; Stop 10/13/16 at 13:55; Status DC Epinephrine HCl 8 mg/Dextrose 250 ml @ 5.62 mls/hr TITRATE PRN IV Blood Pressure Management Last administered on 10/13/16 09:07; Start 10/13/16 at 09:00 ; Stop 10/28/16 at 11:24; Status DC Sodium Bicarbonate (Sodium Bicarbonate 8.4% Inj) 200 meq ONCE ONCE IV PUSH Last administered on 10/13/16 11:43; Start 10/13/16 at 11:30; Stop 10/13/16 at 11: 31; Status DC Etomidate (Amidate Inj) 20 mg ONCE ONCE IV PUSH ; Start 10/13/16 at 13:15; Stop 10/13/16 at 14:37; Status DC Midazolam HCl (Versed Inj) 5 mg ONCE ONCE IV PUSH Last administered on 13:15; Start 10/13/16 at 13:15; Stop 10/13/16 at 14:37; Status DC Rocuronium Independence (Zemuron Inj) 100 mg BOLUS ONCE IV Last administered on 10/13 13:15; Start 10/13/16 at 13:15; Stop 10/13/16 at 14:37; Status DC Midazolam HCl (Versed Inj) 5 mg STK-MED ONCE .ROUTE Last administered on 13:20; Start 10/13/16 at 13:20; Stop 10/13/16 at 13:21; Status DC Micafungin Sodium 150 mg/Sodium Chloride 100 ml @ 100 mls/hr Q24H IV Last administered on 10/16/16 16:12; Start 10/13/16 at 17:00; Stop 10/16/16 at 17:40; Status DC Daptomycin 1000 mg/Sodium Chloride 100 ml @ 200 mls/hr Q48H IV Last administered on 10/27/16 16:58; Start 10/13/16 at 16:00; Stop 10/30/16 at 15:59 Cefepime HCl 1000 mg/Sodium Chloride 100 ml @ 200 mls/hr Q24H IV Last administered on 10/28/16 18:28; Start 10/13/16 at 15:00 Metronidazole 100 ml @ 100 mls/hr Q8H IV Last administered on 10/16/16 15:13; Start 10/13/16 at 16:00; Stop 10/16/16 at 17:40; Status DC Propofol 100 ml @ As Directed STK-MED ONCE .ROUTE ; Start 10/13/16 at 15:31; Stop 10/13/16 at 15:32; Status DC Sodium Chloride 1,000 ml @ 0 mls/hr Q0M PRN OTHER For Prime & Rinse Back Last administered on 10/21/16 10:43; Start 10/13/16 at 15:54 Heparin Sodium (Porcine) (Heparin Inj) 8,000 units UNSCH PRN IVF WITH DIALYSIS ; Start 10/13/16 at 16:00 Sodium Chloride 1,000 ml @ 200 mls/hr Q5H PRN IV WITH DIALYSIS Last administered on 10/28/16 17:35; Start 10/13/16 at 15:54 Sodium Chloride 1,000 ml @ 0 mls/hr Q0M PRN OTHER WITH DIALYSIS; Start 10/13/16 at 15:54 Mannitol (Mannitol Inj) 12.5 gm UNSCH PRN IV WITH DIALYSIS; Start 10/13/16 at 16 :00 Albumin Human (Albumin 25% Inj) 25 gm UNSCH PRN IV WITH DIALYSIS Last administered on 10/14/16 08:19; Start 10/13/16 at 16:00 Sodium Chloride (NS Flush) 5 ml UNSCH PRN IV FLUSH WITH DIALYSIS Last administered on 10/21/16 10:42; Start 10/13/16 at 16:00 Heparin Sodium (Porcine) (Heparin Inj) UNSCH PRN .XX WITH DIALYSIS Last administered on 10/28/16 17:35; Start 10/13/16 at 16:00 Gentamicin Sulfate (Gentamicin (Dialysis) Inj) 20 mg UNSCH PRN IV WITH DIALYSIS Last administered on 10/28/16 17:36; Start 10/13/16 at 16:00 Ondansetron HCl (Zofran Inj) 4 mg UNSCH PRN IV WITH DIALYSIS; Start 10/13/16 at 16:00 Acetaminophen (Tylenol) 650 mg UNSCH PRN PO for headach, pain, temp > 101F Last administered on 10/21/16 20:36; Start 10/13/16 at 16:00 Diphenhydramine HCl (Benadryl) 25 mg UNSCH PRN PO for hives/itching/ anaphylaxis Last administered on 10/28/16 06:35; Start 10/13/16 at 16:00 Nitroglycerin (Nitrostat Sl) 0.4 mg UNSCH PRN SL CHEST PAIN; Start 10/13/16 at 16:00 Clonidine (Catapres) 0.1 mg UNSCH PRN PO for BP > 180/100 X 2 readings Last administered on 10/28/16 20:05; Start 10/13/16 at 16:00 Gelatin (Gelfoam 12 Mm/7 Mm Top) 1 foam UNSCH PRN TOP SEE LABEL COMMENTS Last administered on 10/15/16 10:39; Start 10/13/16 at 16:00 Propofol 100 ml @ As Directed STK-MED ONCE .ROUTE ; Start 10/13/16 at 18:39; Stop 10/13/16 at 18:40; Status DC Propofol 100 ml @ 4.128 mls/ hr TITRATE PRN IV SEDATION Last administered on 13:36; Start 10/13/16 at 19:15; Stop 10/28/16 at 11:24; Status DC Famotidine (Pepcid Liq) 20 mg BID NG Last administered on 10/15/16 09:19; Start 10/14/16 at 21:00; Stop 10/15/16 at 10:04; Status DC Silver Nitrate/ Potassium Nitrate (Silver Nitrate Applicators) 1 appl UNSCH X1 ONCE TOPICAL Last administered on 10/15/16 09:19; Start 10/15/16 at 09:00; Stop 10/15/16 at 09:01; Status DC Famotidine (Pepcid Liq) 10 mg BID NG Last administered on 10/21/16 09:00; Start 10/15/16 at 21:00; Stop 10/21/16 at 20:09; Status DC Diphenhydramine HCl (Benadryl) 25 mg BID PO Last administered on 10/17/16 08:55 ; Start 10/15/16 at 21:00; Stop 10/17/16 at 09:01; Status DC Dexamethasone Sodium Phosphate (Decadron Inj) 4 mg Q6HR IV PUSH Last administered on 10/16/16 17:57; Start 10/16/16 at 10:00; Stop 10/16/16 at 18:01; Status DC Hydralazine HCl (Apresoline Inj) 20 mg Q3H PRN IV PUSH SBP > 170 Last administered on 10/27/16 22:28; Start 10/16/16 at 15:45 Labetalol HCl (Trandate Inj) 20 mg Q3H PRN IV PUSH SBP > 160 Last administered on 10/21/16 22:05; Start 10/16/16 at 15:45 Atropine Sulfate (Atropine Inj) 1 mg STK-MED ONCE IV ; Start 10/13/16 at 05:00; Stop 10/17/16 at 11:07; Status DC Sodium Bicarbonate (Sodium Bicarbonate 8.4% Inj) 50 meq STK-MED ONCE IV ; Start 10/13/16 at 05:00; Stop 10/17/16 at 11:08; Status DC Sodium Chloride 250 ml @ 15 mls/hr ONCE ONCE IV ; Start 10/18/16 at 09:30; Stop 10/19/16 at 02:09; Status DC Epinephrine HCl (EPINEPHrine (1:10,000) INJ) 1 mg STK-MED ONCE .ROUTE ; Start at 14:51; Stop 10/18/16 at 14:52; Status DC Alteplase, Recombinant (Activase Bolus) 9 mg ONCE ONCE IV Last administered on 10/18/16 16:00; Start 10/18/16 at 16:00; Stop 10/18/16 at 16:03; Status DC Alteplase, Recombinant 81 mg/ Syringe / Bag 81 ml @ 81 mls/hr ONCE ONCE IV Last administered on 10/18/16 16:01; Start 10/18/16 at 16:00; Stop 10/18/16 at 16: 59; Status DC Sodium Chloride (NS Inj) 30 ml ONCE ONCE IVF Last administered on 10/18/16 16: 00; Start 10/18/16 at 16:00; Stop 10/18/16 at 16:02; Status DC Miscellaneous Information No Heparin, Warfarin, Aspir... UNSCH PRN XX SEE DOSE INSTRUCTIONS; Start 10/18/16 at 16:00; Stop 10/19/16 at 15:59; Status DC Micafungin Sodium 150 mg/Sodium Chloride 100 ml @ 100 mls/hr Q24H IV Last administered on 10/18/16 18:32; Start 10/18/16 at 18:00; Stop 10/19/16 at 14:43; Status DC Chlorhexidine Gluconate (Peridex 0.12% Liq) 15 ml BID@08,20 MT Last administered on 10/28/16 10:50; Start 10/18/16 at 20:00 Dexamethasone Sodium Phosphate (Decadron Inj) 4 mg STAT ONCE IV PUSH Last administered on 10/19/16 11:50; Start 10/19/16 at 11:15; Stop 10/19/16 at 11:16; Status DC Racepinephrine (Racepinephrine 2.25% Neb) 0.5 ml STK-MED ONCE .ROUTE ; Start 10/19/16 at 13:19; Stop 10/19/16 at 13:20; Status DC Diphenhydramine HCl (Benadryl) 25 mg Q6H PRN PO ITCHING Last administered on 11:57; Start 10/21/16 at 15:30; Stop 10/23/16 at 10:29; Status DC Famotidine (Pepcid) 10 mg BID PO Last administered on 10/29/16 10:59; Start at 21:00 Calamine (Calamine Lotion) 1 applic Q6H PRN TOPICAL irritated skin Last administered on 10/21/16 23:47; Start 10/21/16 at 22:30 Thiamine HCl (Vitamin B1) 100 mg DAILY PO Last administered on 10/29/16 10:59 ; Start 10/23/16 at 09:00 Diphenhydramine HCl (Benadryl) 50 mg Q6H PRN PO ITCHING Last administered on 05:58; Start 10/23/16 at 15:30 Senna/Docusate Sodium (Maira-Colace) 2 tab ONCE ONCE PO Last administered on 12:11; Start 10/23/16 at 10:30; Stop 10/23/16 at 11:05; Status DC Magnesium Hydroxide (Milk Of Magnsaroj Liq) 30 ml ONCE ONCE PO Last administered on 10/23/16 12:11; Start 10/23/16 at 10:30; Stop 10/23/16 at 11:06 ; Status DC Senna/Docusate Sodium (Maira-Colace) 1 tab BID PO Last administered on 10:59; Start 10/23/16 at 21:00 Lactic Acid (Lac-Hydrin 12% Lotion) 1 applic BID TOPICAL Last administered on 11:00; Start 10/23/16 at 21:00 Cholecalciferol (Vitamin D3) 5,000 units DAILY PO Last administered on 10:48; Start 10/24/16 at 09:00 Cholecalciferol (Vitamin D3) 10,000 units ONCE ONCE PO Last administered on 18:06; Start 10/23/16 at 17:45; Stop 10/23/16 at 17:46; Status DC Senna/Docusate Sodium (Maira-Colace) 1 tab BID PO ; Start 10/24/16 at 21:00; Stop 10/24/16 at 21:00; Status DC Fluconazole (Diflucan) 100 mg Q48H PO Last administered on 10/28/16 18:21; Start 10/24/16 at 17:00 Hydralazine HCl (Apresoline) 25 mg Q12HR PO Last administered on 10/28/16 10: 48; Start 10/26/16 at 11:30; Stop 10/28/16 at 13:51; Status DC Diphenhydramine HCl (Benadryl 2% Cream) APPLY TO AFFECTED AREA Q4H PRN TOPICAL ITCHING; Start 10/27/16 at 17:30 Nifedipine (Procardia Xl) 30 mg ONCE ONCE PO Last administered on 10/28/16 18 :37; Start 10/28/16 at 14:30; Stop 10/28/16 at 14:31; Status DC Hydralazine HCl (Apresoline) 25 mg Q8H PO Last administered on 10/29/16 10:59 ; Start 10/28/16 at 16:00 A/P Assessment and Plan Suspected stroke alert with acute change in neurologic status 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 Patient was administered IV thrombolysis following evaluation by neurology Dr. Burton in view of concern for brain stem CVA while awaiting MRI brain on 10/18. Subsequently MRI/MRA brain unremarkable. - Urine tox screen came back positive for benzodiazepines placing concern for surreptitious benzodiazepine use as she does not have any benzodiazepine listed on her MAR. Obesity Hypoventilation Syndrome COPD Sleep Apnea Acute hypoxic and hypercarbic respiratory failure- persistent, no improvement. Pulmonary Edema - intubated and then extubated 10/16. -Emergently intubated on 10/18 for airway protection due to altered mental status. Extubated on 10/19- now stable. Septic Shock- resolving. pseudomonas bacteremia Severe Tricuspid Regurgitation IV antibiotics per ID recommendations. Acute kidney injury requiring renal replacement therapy - nephrology following - HD per nephrology. -- Strict IOs Severe metabolic acidosis- resolved Hyperkalemia- resolved. Morbid Obesity Advance by mouth diet Chronic anemia- likely secondary to chronic disease Septic Shock LLE osteomyelitis Pseudomonas bacteremia Gram Positive Bacteremia Pseudomonas osteomyelitis Fungal Urinary Tract Infection -Recommend transfusions of PRBCs to keep hemoglobin above 7 g percent. - ID following. - continue antibiotics per ID. Diabetes -Vitamin D deficiency. -- Patient had low vitamin D and was started on cholecalciferol. -- continue accu-check with sliding scale. hypertension-uncontrolled start on Procardia XL- increased hydralazine continue to monitor and adjust the regimen as needed. GI Prophylaxis pepcid DVT Prophylaxis -- SCDs Sub-cutaneous heparin Roseanna Murphy MD Oct 29, 2016 12:03
[2016-10-29] MEDS: CEFEPIME INJ 1,000 MG in SODIUM CHLORIDE 0.9% INJ 100 ML IV SCH (15:26)
[2016-10-29] MEDS: DAPTOmycin INJ 1,000 MG in SODIUM CHLORIDE 0.9% INJ 100 ML IV SCH (16:00)
[2016-10-29] MEDS: NIFEdipine 30 MG SUSTAINED RELEASE TAB PO SCH (16:45)
[2016-10-29] MEDS: cloNIDine HCL 0.1 MG TAB PO PRN ×2 (16:52→21:45)
[2016-10-30] VITALS (12 sets, daily range): BP systolic 168–197; BP diastolic 84–100; PULSE 76–91; RESP 18–20; TEMP 97.7–98.6; O2SAT 93–100
[2016-10-30] MEDS: hydrALAZINE HCL 25 MG TAB PO SCH ×3 (00:33→18:01)
[2016-10-30] MEDS: RESP: IPRATROPIUM 0.5 MG/2.5 ML NEB NEB SCH ×4 (03:12→21:04)
[2016-10-30] MEDS: diphenhydrAMINE HCL 50 MG CAP PO PRN ×3 (04:08→23:03)
[2016-10-30] MEDS: hydrALAZINE HCL 20 MG/ML VIAL IV PUSH PRN ×2 (04:08→23:02)
[2016-10-30] MEDS: INSULIN NovoLIN REGULAR SUPPLEMENTAL SCALE SQ SCH ×4 (05:50→18:02)
[2016-10-30] MEDS: THIAMINE HCL 100 MG TAB PO SCH (09:07)
[2016-10-30] MEDS: LACTOBACILLUS ACIDOPHILUS TAB PO SCH ×2 (09:07→18:01)
[2016-10-30] MEDS: FAMOTIDINE 20 MG TAB PO SCH ×2 (09:07→22:12)
[2016-10-30] MEDS: NIFEdipine 30 MG SUSTAINED RELEASE TAB PO SCH (09:07)
[2016-10-30] MEDS: SODIUM CHLORIDE 0.9% FLUSH 10 ML FLUSH IV FLUSH SCH ×2 (09:08→22:12)
[2016-10-30] MEDS: CHLORHEXIDINE 0.12% (ORAL KIT) 15 ML CUP MT SCH ×2 (09:08→20:00)
[2016-10-30] MEDS: DOCUSATE SODIUM 50 MG/SENNA 8.6 MG TAB PO SCH ×2 (09:08→21:00)
--- NOTE | 2016-10-30 09:58 | HHI.PR ---
Subjective Remarks in no distress. remains afebrile. denies chest pain or sob. had an episode of V-tach earlier today. d/w the RN. Objective Vitals Vital Signs Date Time Temp Pulse Resp B/P (MAP) Pulse Ox O2 Delivery O2 Flow Rate FiO2 10/30/16 07:59 85 10/30/16 05:51 170/100 (123) 10/30/16 04:00 96 Room Air 10/30/16 04:00 98.1 88 18 180/90 (120) 96 10/30/16 01:51 170/96 (120) 10/30/16 00:00 95 Room Air 10/29/16 22:28 97 10/29/16 20:00 85 10/29/16 20:00 98.1 84 18 188/98 (128) 97 10/29/16 18:15 98.2 86 18 190/91 (124) 96 10/29/16 16:30 84 176/80 (112) 10/29/16 16:00 98.5 84 18 190/80 (116) 94 10/29/16 13:00 168/80 (109) 10/29/16 12:00 98.2 87 18 178/86 (116) 94 I/O 10/29/16 10/29/16 10/29/16 10/30/16 10/30/16 10/30/16 07:00 15:00 23:00 07:00 15:00 23:00 Intake Total 240 ml 0 ml 100 ml Output Total 300 ml 175 ml 300 ml Balance -60 ml -175 ml -200 ml Intake Oral 240 ml 0 ml 100 ml Output Urine Total 300 ml 175 ml 300 ml # Bowel Movements 2 0 Result Diagram: 10/26/16 0700 10/28/16 0903 Imaging Last Impressions Liver Ultrasound 10/23/16 0000 Signed Impressions: Service Date/Time: Sunday, October 23, 2016 09:45 - CONCLUSION: 1. Gallbladder sludge 2. No evidence of biliary duct dilatation 3. Otherwise unremarkable exam. Jaiden Weston MD Head CT 10/19/16 1700 Signed Impressions: Service Date/Time: October 17:01 - CONCLUSION: No acute intracranial findings Ricco Kulkarni MD Head Magnetic Resonance Angiography 10/18/16 0000 Signed Impressions: Service Date/Time: Tuesday, October 18, 2016 16:23 - CONCLUSION: Normal examination. Ricco Kulkarni MD Chest X-Ray 10/18/16 Signed Impressions: Service Date/Time: Tuesday, October 18, 2016 14:59 - CONCLUSION: 1. Mild to moderate pulmonary vascular congestion. 2. Cardiomegaly. 3. Elevation of the right hemidiaphragm. 4. Endotracheal tube in good position 3 cm above the elsie. 5. Left internal jugular VasCath and left subclavian central line are stable in positions. Raymond Smith MD Brain MRI 10/18/16 Signed Impressions: Service Date/Time: Tuesday, October 18, 2016 16:11 - CONCLUSION: Nonspecific white matter signal change in the left frontal region. No evidence of acute stroke. Ricco Kulkarni MD Ankle X-Ray 10/14/16 Signed Impressions: Service Date/Time: Friday, October 14, 2016 17:01 - CONCLUSION: Marked soft tissue swelling with subcutaneous calcifications. Negative for fracture. Roman Montiel MD FACR Upper Extremity Ultrasound 10/13/16 Signed Impressions: Service Date/Time: Thursday, October 13, 2016 09:17 - CONCLUSION: 1. No DVT. 2. Subcutaneous edema observed. Wilner Potter Jr., MD Lower Extremity Ultrasound 10/13/16 Signed Impressions: Service Date/Time: Thursday, October 13, 2016 08:57 - CONCLUSION: 1. Study has some limitations as detailed above. No DVT observed. Wilner Potter Jr., MD Lower Extremity CT 10/13/16 Signed Impressions: Service Date/Time: Thursday, October 13, 2016 21:35 - CONCLUSION: Ulcer at the region of the base of the fifth metatarsal. There appears to be chronic and acute changes in this region. The acute changes are worrisome for osteomyelitis at the base of the fifth metatarsal. Ricco Fuentes MD Chest CT 10/13/16 Signed Impressions: Service Date/Time: Thursday, October 13, 2016 21:27 - CONCLUSION: 1. Patchy areas of consolidation seen bilaterally being worse on the right. These could represent areas of inflammatory/infectious disease. Focal round lesions to suggest septic emboli are not clearly identified. 2. Edema seen at the right superficial chest and abdomen regions. The cause of for this asymmetric edema is not known. 3. Mild ascites. Ricco Fuentes MD Abdomen CT 10/13/16 0000 Signed Impressions: Service Date/Time: Thursday, October 13, 2016 21:27 - CONCLUSION: 1. Mild ascites seen around the liver. 2. Superficial edema seen bilaterally in the subcutaneous tissues. This is asymmetric and being much more prominent on the right. 3. Small area of increased density seen independently in the gallbladder representing either small gallstones or milk of calcium. Ricco Fuentes MD Renal Ultrasound 10/12/16 0000 Signed Impressions: Service Date/Time: September 20:54 - CONCLUSION: Normal appearance of the kidneys. Ricco Fuentes MD Objective Remarks GENERAL: This is a well-nourished, well-developed patient, in no apparent distress. CARDIOVASCULAR: Regular rate and regular rhythm without murmurs, gallops, or rubs. RESPIRATORY: Clear to auscultation. Breath sounds equal bilaterally. No wheezes , rales, or rhonchi. GASTROINTESTINAL: Abdomen soft, non-tender, nondistended. Normal, active bowel sounds MUSCULOSKELETAL: Extremities without clubbing, cyanosis, or edema. NEURO: Alert & Oriented x4 to person, place, time, situation. Moves all ext x4 Medications and IVs Current Medications Sodium Chloride 1,000 ml @ 999 mls/hr BOLUS ONCE IV Last administered on 10/12 18:59; Start 10/12/16 at 18:15; Stop 10/12/16 at 19:15; Status DC Sodium Bicarbonate 150 meq/Sterile Water 1,000 ml @ 100 mls/hr Q10H IV Last administered on 10/12/16 23:39; Start 10/12/16 at 20:15; Stop 10/13/16 at 05:52 ; Status DC Sodium Chloride (NS Flush) 2 ml UNSCH PRN IV FLUSH FLUSH AFTER USING IV ACCESS ; Start 10/12/16 at 20:15 Sodium Chloride (NS Flush) 2 ml BID IV FLUSH Last administered on 10/30/16 09: 08; Start 10/12/16 at 21:00 Heparin Sodium (Porcine) (Heparin Inj) 5,000 units Q8H SQ Last administered on 10/18/16 12:42; Start 10/13/16 at 06:00; Stop 10/18/16 at 15:57; Status DC Naloxone HCl (Narcan Inj) 0.4 mg UNSCH PRN IV SEE LABEL COMMENTS; Start at 20:15 Calcium Gluconate (Calcium Gluconate Inj) 1 gm ONCE ONCE IV PUSH ; Start at 20:15; Stop 10/12/16 at 21:51; Status DC Insulin Human Regular (NovoLIN R INJ) 10 units ONCE ONCE IV PUSH Last administered on 10/12/16 23:54; Start 10/12/16 at 20:15; Stop 10/12/16 at 21:53 ; Status DC Dextrose (D50w (Syr) Inj) 50 ml ONCE ONCE IV PUSH Last administered on 23:53; Start 10/12/16 at 20:15; Stop 10/12/16 at 21:52; Status DC Sodium Polystyrene Sulfonate (Kayexalate Liq) 30 gm ONCE ONCE PO Last administered on 10/12/16 23:40; Start 10/12/16 at 20:15; Stop 10/12/16 at 21:54 ; Status DC Dextrose (D50w (Vial) Inj) 50 ml UNSCH PRN IV HYPOGLYCEMIA-SEE COMMENTS; Start 10/12/16 at 20:15; Stop 10/13/16 at 07:33; Status DC Glucagon (Glucagon Inj) 1 mg UNSCH PRN OTHER HYPOGLYCEMIA-SEE COMMENTS; Start 10/12/16 at 20:15 Insulin Aspart (NovoLOG SUPPLEMENTAL SCALE) 1 ACHS SLIDING SCALE SQ ; Start at 21:00; Stop 10/13/16 at 07:30; Status DC Calcium Gluconate 1 gm/Sodium Chloride 110 ml @ 110 mls/hr ONCE ONCE IV Last administered on 10/12/16 23:54; Start 10/12/16 at 23:00; Stop 10/12/16 at 23:59 ; Status DC Ipratropium Valencia (Atrovent Neb) 0.5 mg Q6HR NEB NEB Last administered on 03:12; Start 10/13/16 at 04:00 Ipratropium Valencia (Atrovent Neb) 0.5 mg Q2HR NEB PRN NEB wheezing; Start 10/13 at 00:45 Amitriptyline HCl (Elavil) 50 mg HS PO ; Start 10/13/16 at 21:00; Stop 10/13/16 at 21:00; Status DC Hydralazine HCl (Apresoline) 100 mg TID PO ; Start 10/13/16 at 09:00; Stop at 09:00; Status DC Insulin Detemir (Levemir Inj) 20 units AC BREAKFAST SQ ; Start 10/13/16 at 07:00 ; Stop 10/13/16 at 07:00; Status DC Insulin Detemir (Levemir Inj) 25 units HS SQ ; Start 10/13/16 at 21:00; Stop 10/13 at 21:00; Status DC Labetalol HCl (Trandate) 200 mg TID PO ; Start 10/13/16 at 09:00; Stop 10/13/16 at 09:00; Status DC Lactobacillus Acidophilus (Lactinex) 1 tab TIDAC PO Last administered on t 09:07; Start 10/13/16 at 08:00 Loratadine (Claritin) 10 mg DAILY PO ; Start 10/13/16 at 09:00; Stop 10/13/16 at 09:00; Status DC Montelukast Sodium (Singulair) 10 mg HS PO ; Start 10/13/16 at 21:00; Stop at 21:00; Status DC Nifedipine (Procardia Xl) 60 mg TID PO ; Start 10/13/16 at 09:00; Stop 10/13/16 at 09:00; Status DC Pravastatin Sodium (Pravachol) 40 mg DAILY PO ; Start 10/13/16 at 09:00; Stop 10/13/16 at 09:00; Status DC Sodium Chloride 1,000 ml @ 999 mls/hr BOLUS ONCE IV Last administered on t 05:42; Start 10/13/16 at 04:45; Stop 10/13/16 at 05:45; Status DC Sodium Bicarbonate 150 meq/Dextrose 1,150 ml @ 75 mls/hr [id number] IV ; Start 10/13/16 at 08:00; Stop 10/13/16 at 08:00; Status DC Norepinephrine Bitartrate 250 ml @ As Directed STK-MED ONCE IV ; Start 10/13/16 at 07:25; Stop 10/13/16 at 07:26; Status DC Norepinephrine Bitartrate 250 ml @ 7.5 mls/hr TITRATE PRN IV Blood pressure management; Start 10/13/16 at 07:30; Status UNV Terbutaline Sulfate (Brethine Inj) 1 mg UNSCH PRN SQ For Extravasation; Start 10/13/16 at 07:30; Stop 10/28/16 at 11:24; Status DC Sodium Bicarbonate (Sodium Bicarbonate 8.4% Inj) 200 meq ONCE ONCE IV PUSH Last administered on 10/13/16 07:30; Start 10/13/16 at 07:30; Stop 10/13/16 at 07: 35; Status DC Dextrose (D50w (Vial) Inj) 25 ml UNSCH PRN IV PUSH HYPOGLYCEMIA-SEE COMMENTS; Start 10/13/16 at 07:30 Insulin Human Regular (NovoLIN R SUPPLEMENTAL SCALE) 1 Q6HR SQ Last administered on 10/26/16 12:00; Start 10/13/16 at 12:00 Linezolid 300 ml @ 300 mls/hr Q12H IV ; Start 10/13/16 at 08:00; Stop 10/13/16 at 08:07; Status DC Piperacillin Sod/ Tazobactam Sod 50 ml @ 100 mls/hr Q8H IV Last administered on 10/13/16 09:07; Start 10/13/16 at 09:00; Stop 10/13/16 at 14:13; Status DC Norepinephrine Bitartrate 16 mg/ Dextrose 250 ml @ 1.87 mls/hr TITRATE PRN IV Maintain MAP > 65 mmHg; Start 10/13/16 at 08:00; Stop 10/28/16 at 11:24; Status DC Epinephrine HCl 2 mg/Dextrose 252 ml @ 15.12 mls/ hr TITRATE PRN IV Blood Pressure Management; Start 10/13/16 at 08:15; Stop 10/13/16 at 08:47; Status DC Ketamine HCl (Ketalar Inj) 50 mg STAT ONCE IV PUSH ; Start 10/13/16 at 08:15; Stop 10/13/16 at 08:33; Status DC Midazolam HCl (Versed Inj) 2 mg STAT ONCE IV PUSH ; Start 10/13/16 at 08:15; Stop 10/13/16 at 08:31; Status DC Clindamycin Phosphate 900 mg/ Sodium Chloride 106 ml @ 212 mls/hr Q8H IV Last administered on 10/13/16 09:07; Start 10/13/16 at 09:00; Stop 10/13/16 at 13:55; Status DC Epinephrine HCl 8 mg/Dextrose 250 ml @ 5.62 mls/hr TITRATE PRN IV Blood Pressure Management Last administered on 10/13/16 09:07; Start 10/13/16 at 09:00 ; Stop 10/28/16 at 11:24; Status DC Sodium Bicarbonate (Sodium Bicarbonate 8.4% Inj) 200 meq ONCE ONCE IV PUSH Last administered on 10/13/16 11:43; Start 10/13/16 at 11:30; Stop 10/13/16 at 11: 31; Status DC Etomidate (Amidate Inj) 20 mg ONCE ONCE IV PUSH ; Start 10/13/16 at 13:15; Stop 10/13/16 at 14:37; Status DC Midazolam HCl (Versed Inj) 5 mg ONCE ONCE IV PUSH Last administered on 13:15; Start 10/13/16 at 13:15; Stop 10/13/16 at 14:37; Status DC Rocuronium Valencia (Zemuron Inj) 100 mg BOLUS ONCE IV Last administered on 10/13 13:15; Start 10/13/16 at 13:15; Stop 10/13/16 at 14:37; Status DC Midazolam HCl (Versed Inj) 5 mg STK-MED ONCE .ROUTE Last administered on 13:20; Start 10/13/16 at 13:20; Stop 10/13/16 at 13:21; Status DC Micafungin Sodium 150 mg/Sodium Chloride 100 ml @ 100 mls/hr Q24H IV Last administered on 10/16/16 16:12; Start 10/13/16 at 17:00; Stop 10/16/16 at 17:40; Status DC Daptomycin 1000 mg/Sodium Chloride 100 ml @ 200 mls/hr Q48H IV Last administered on 10/27/16 16:58; Start 10/13/16 at 16:00; Stop 10/30/16 at 15:59 Cefepime HCl 1000 mg/Sodium Chloride 100 ml @ 200 mls/hr Q24H IV Last administered on 10/29/16 15:26; Start 10/13/16 at 15:00 Metronidazole 100 ml @ 100 mls/hr Q8H IV Last administered on 10/16/16 15:13; Start 10/13/16 at 16:00; Stop 10/16/16 at 17:40; Status DC Propofol 100 ml @ As Directed STK-MED ONCE .ROUTE ; Start 10/13/16 at 15:31; Stop 10/13/16 at 15:32; Status DC Sodium Chloride 1,000 ml @ 0 mls/hr Q0M PRN OTHER For Prime & Rinse Back Last administered on 10/21/16 10:43; Start 10/13/16 at 15:54 Heparin Sodium (Porcine) (Heparin Inj) 8,000 units UNSCH PRN IVF WITH DIALYSIS ; Start 10/13/16 at 16:00 Sodium Chloride 1,000 ml @ 200 mls/hr Q5H PRN IV WITH DIALYSIS Last administered on 10/28/16 17:35; Start 10/13/16 at 15:54 Sodium Chloride 1,000 ml @ 0 mls/hr Q0M PRN OTHER WITH DIALYSIS; Start 10/13/16 at 15:54 Mannitol (Mannitol Inj) 12.5 gm UNSCH PRN IV WITH DIALYSIS; Start 10/13/16 at 16 :00 Albumin Human (Albumin 25% Inj) 25 gm UNSCH PRN IV WITH DIALYSIS Last administered on 10/14/16 08:19; Start 10/13/16 at 16:00 Sodium Chloride (NS Flush) 5 ml UNSCH PRN IV FLUSH WITH DIALYSIS Last administered on 10/21/16 10:42; Start 10/13/16 at 16:00 Heparin Sodium (Porcine) (Heparin Inj) UNSCH PRN .XX WITH DIALYSIS Last administered on 10/28/16 17:35; Start 10/13/16 at 16:00 Gentamicin Sulfate (Gentamicin (Dialysis) Inj) 20 mg UNSCH PRN IV WITH DIALYSIS Last administered on 10/28/16 17:36; Start 10/13/16 at 16:00 Ondansetron HCl (Zofran Inj) 4 mg UNSCH PRN IV WITH DIALYSIS; Start 10/13/16 at 16:00 Acetaminophen (Tylenol) 650 mg UNSCH PRN PO for headach, pain, temp > 101F Last administered on 10/21/16 20:36; Start 10/13/16 at 16:00 Diphenhydramine HCl (Benadryl) 25 mg UNSCH PRN PO for hives/itching/ anaphylaxis Last administered on 10/28/16 06:35; Start 10/13/16 at 16:00 Nitroglycerin (Nitrostat Sl) 0.4 mg UNSCH PRN SL CHEST PAIN; Start 10/13/16 at 16:00 Clonidine (Catapres) 0.1 mg UNSCH PRN PO for BP > 180/100 X 2 readings Last administered on 10/29/16 16:52; Start 10/13/16 at 16:00; Stop 10/29/16 at 20:11 ; Status DC Gelatin (Gelfoam 12 Mm/7 Mm Top) 1 foam UNSCH PRN TOP SEE LABEL COMMENTS Last administered on 10/15/16 10:39; Start 10/13/16 at 16:00 Propofol 100 ml @ As Directed STK-MED ONCE .ROUTE ; Start 10/13/16 at 18:39; Stop 10/13/16 at 18:40; Status DC Propofol 100 ml @ 4.128 mls/ hr TITRATE PRN IV SEDATION Last administered on 13:36; Start 10/13/16 at 19:15; Stop 10/28/16 at 11:24; Status DC Famotidine (Pepcid Liq) 20 mg BID NG Last administered on 10/15/16 09:19; Start 10/14/16 at 21:00; Stop 10/15/16 at 10:04; Status DC Silver Nitrate/ Potassium Nitrate (Silver Nitrate Applicators) 1 appl UNSCH X1 ONCE TOPICAL Last administered on 10/15/16 09:19; Start 10/15/16 at 09:00; Stop 10/15/16 at 09:01; Status DC Famotidine (Pepcid Liq) 10 mg BID NG Last administered on 10/21/16 09:00; Start 10/15/16 at 21:00; Stop 10/21/16 at 20:09; Status DC Diphenhydramine HCl (Benadryl) 25 mg BID PO Last administered on 10/17/16 08:55 ; Start 10/15/16 at 21:00; Stop 10/17/16 at 09:01; Status DC Dexamethasone Sodium Phosphate (Decadron Inj) 4 mg Q6HR IV PUSH Last administered on 10/16/16 17:57; Start 10/16/16 at 10:00; Stop 10/16/16 at 18:01; Status DC Hydralazine HCl (Apresoline Inj) 20 mg Q3H PRN IV PUSH SBP > 170 Last administered on 10/30/16 04:08; Start 10/16/16 at 15:45 Labetalol HCl (Trandate Inj) 20 mg Q3H PRN IV PUSH SBP > 160 Last administered on 10/21/16 22:05; Start 10/16/16 at 15:45 Atropine Sulfate (Atropine Inj) 1 mg STK-MED ONCE IV ; Start 10/13/16 at 05:00; Stop 10/17/16 at 11:07; Status DC Sodium Bicarbonate (Sodium Bicarbonate 8.4% Inj) 50 meq STK-MED ONCE IV ; Start 10/13/16 at 05:00; Stop 10/17/16 at 11:08; Status DC Sodium Chloride 250 ml @ 15 mls/hr ONCE ONCE IV ; Start 10/18/16 at 09:30; Stop 10/19/16 at 02:09; Status DC Epinephrine HCl (EPINEPHrine (1:10,000) INJ) 1 mg STK-MED ONCE .ROUTE ; Start at 14:51; Stop 10/18/16 at 14:52; Status DC Alteplase, Recombinant (Activase Bolus) 9 mg ONCE ONCE IV Last administered on 10/18/16 16:00; Start 10/18/16 at 16:00; Stop 10/18/16 at 16:03; Status DC Alteplase, Recombinant 81 mg/ Syringe / Bag 81 ml @ 81 mls/hr ONCE ONCE IV Last administered on 10/18/16 16:01; Start 10/18/16 at 16:00; Stop 10/18/16 at 16: 59; Status DC Sodium Chloride (NS Inj) 30 ml ONCE ONCE IVF Last administered on 10/18/16 16: 00; Start 10/18/16 at 16:00; Stop 10/18/16 at 16:02; Status DC Miscellaneous Information No Heparin, Warfarin, Aspir... UNSCH PRN XX SEE DOSE INSTRUCTIONS; Start 10/18/16 at 16:00; Stop 10/19/16 at 15:59; Status DC Micafungin Sodium 150 mg/Sodium Chloride 100 ml @ 100 mls/hr Q24H IV Last administered on 10/18/16 18:32; Start 10/18/16 at 18:00; Stop 10/19/16 at 14:43; Status DC Chlorhexidine Gluconate (Peridex 0.12% Liq) 15 ml BID@08,20 MT Last administered on 10/28/16 10:50; Start 10/18/16 at 20:00 Dexamethasone Sodium Phosphate (Decadron Inj) 4 mg STAT ONCE IV PUSH Last administered on 10/19/16 11:50; Start 10/19/16 at 11:15; Stop 10/19/16 at 11:16; Status DC Racepinephrine (Racepinephrine 2.25% Neb) 0.5 ml STK-MED ONCE .ROUTE ; Start 10/19/16 at 13:19; Stop 10/19/16 at 13:20; Status DC Diphenhydramine HCl (Benadryl) 25 mg Q6H PRN PO ITCHING Last administered on 11:57; Start 10/21/16 at 15:30; Stop 10/23/16 at 10:29; Status DC Famotidine (Pepcid) 10 mg BID PO Last administered on 10/30/16 09:07; Start at 21:00 Calamine (Calamine Lotion) 1 applic Q6H PRN TOPICAL irritated skin Last administered on 10/27/16 12:00; Start 10/21/16 at 22:30 Thiamine HCl (Vitamin B1) 100 mg DAILY PO Last administered on 10/30/16 09:07 ; Start 10/23/16 at 09:00 Diphenhydramine HCl (Benadryl) 50 mg Q6H PRN PO ITCHING Last administered on 04:08; Start 10/23/16 at 15:30 Senna/Docusate Sodium (Maira-Colace) 2 tab ONCE ONCE PO Last administered on 12:11; Start 10/23/16 at 10:30; Stop 10/23/16 at 11:05; Status DC Magnesium Hydroxide (Milk Of Lion Cohen) 30 ml ONCE ONCE PO Last administered on 10/23/16 12:11; Start 10/23/16 at 10:30; Stop 10/23/16 at 11:06 ; Status DC Senna/Docusate Sodium (Maira-Colace) 1 tab BID PO Last administered on 09:08; Start 10/23/16 at 21:00 Lactic Acid (Lac-Hydrin 12% Lotion) 1 applic BID TOPICAL Last administered on 21:00; Start 10/23/16 at 21:00 Cholecalciferol (Vitamin D3) 5,000 units DAILY PO Last administered on 09:00; Start 10/24/16 at 09:00 Cholecalciferol (Vitamin D3) 10,000 units ONCE ONCE PO Last administered on 18:06; Start 10/23/16 at 17:45; Stop 10/23/16 at 17:46; Status DC Senna/Docusate Sodium (Maira-Colace) 1 tab BID PO ; Start 10/24/16 at 21:00; Stop 10/24/16 at 21:00; Status DC Fluconazole (Diflucan) 100 mg Q48H PO Last administered on 10/28/16 18:21; Start 10/24/16 at 17:00 Hydralazine HCl (Apresoline) 25 mg Q12HR PO Last administered on 10/28/16 10: 48; Start 10/26/16 at 11:30; Stop 10/28/16 at 13:51; Status DC Diphenhydramine HCl (Benadryl 2% Cream) APPLY TO AFFECTED AREA Q4H PRN TOPICAL ITCHING; Start 10/27/16 at 17:30 Nifedipine (Procardia Xl) 30 mg ONCE ONCE PO Last administered on 10/28/16 18 :37; Start 10/28/16 at 14:30; Stop 10/28/16 at 14:31; Status DC Hydralazine HCl (Apresoline) 25 mg Q8H PO Last administered on 10/30/16 09:08 ; Start 10/28/16 at 16:00 Multi-Ingredient Ointment (Eucerin Cream) 1 applic Q6H PRN TOPICAL DRY SKIN; Start 10/29/16 at 12:15 Nifedipine (Procardia Xl) 30 mg DAILY PO Last administered on 10/30/16 09:07; Start 10/29/16 at 12:15 Clonidine (Catapres) 0.1 mg Q8H PRN PO for BP > 180/100 X 2 readings Last administered on 10/29/16 21:45; Start 10/29/16 at 20:15 A/P Assessment and Plan Suspected stroke alert with acute change in neurologic status 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 Patient was administered IV thrombolysis following evaluation by neurology Dr. Burton in view of concern for brain stem CVA while awaiting MRI brain on 10/18. Subsequently MRI/MRA brain unremarkable. - Urine tox screen came back positive for benzodiazepines placing concern for surreptitious benzodiazepine use as she does not have any benzodiazepine listed on her MAR. non-sustained V-tach start on lopressor- check electrolytes . echo with EF 60%. Obesity Hypoventilation Syndrome COPD Sleep Apnea Acute hypoxic and hypercarbic respiratory failure- persistent, no improvement. Pulmonary Edema - intubated and then extubated 10/16. -Emergently intubated on 10/18 for airway protection due to altered mental status. Extubated on 10/19- now stable. Septic Shock- resolving. pseudomonas bacteremia Severe Tricuspid Regurgitation IV antibiotics per ID recommendations. Acute kidney injury requiring renal replacement therapy - nephrology following - HD per nephrology. -- Strict IOs Severe metabolic acidosis- resolved Hyperkalemia- resolved. Morbid Obesity Advance by mouth diet Chronic anemia- likely secondary to chronic disease Septic Shock LLE osteomyelitis Pseudomonas bacteremia Gram Positive Bacteremia Pseudomonas osteomyelitis Fungal Urinary Tract Infection -Recommend transfusions of PRBCs to keep hemoglobin above 7 g percent. - ID following. - continue antibiotics per ID. Diabetes -Vitamin D deficiency. -- Patient had low vitamin D and was started on cholecalciferol. -- continue accu-check with sliding scale. hypertension-uncontrolled start on Procardia XL- increased hydralazine continue to monitor and adjust the regimen as needed. GI Prophylaxis pepcid DVT Prophylaxis -- SCDs Sub-cutaneous heparin Roseanna Murphy MD Oct 30, 2016 09:58
[2016-10-30 11:23] LABS: BICARBONATE 24.7 MEQ/L (21.0-32.0); MAGNESIUM 1.9 MG/DL (1.5-2.5); POTASSIUM 3.2 MEQ/L (3.5-5.1)
[2016-10-30] MEDS ORDERED: POTASSIUM CHLORIDE 10 MEQ CONTROLLED RELEASE TAB PO ONE (11:45)
--- NOTE | 2016-10-30 12:08 | HHI.NPPN ---
Subjective General Problems: Anemia Renal Failure: Acute Interval History patient was seen and examined. Dialyzed on Sunday. Review of Systems General Constitutional: Fatigue Ears, Nose, & Throat ENT Remarks loss of appetite Respiratory Lungs: SOB Cardiovascular Cardiac: Edema Endocrine Endocrine: Thirst Skin Skin: Skin Rash, Ulcers Skin Remarks generalized rash with peeling skin; ulcer planter surface left foot Objective Data Data Vital Signs Date Time Temp Pulse Resp B/P (MAP) Pulse Ox O2 Delivery O2 Flow Rate FiO2 10/30/16 10:33 87 10/30/16 09:49 96 10/30/16 09:15 Room Air 10/30/16 08:00 98.6 87 20 187/92 (123) 93 10/30/16 07:59 85 10/30/16 05:51 170/100 (123) 10/30/16 04:00 96 Room Air 10/30/16 04:00 98.1 88 18 180/90 (120) 96 10/30/16 01:51 170/96 (120) 10/30/16 00:00 95 Room Air 10/29/16 22:28 97 10/29/16 20:00 85 10/29/16 20:00 98.1 84 18 188/98 (128) 97 10/29/16 18:15 98.2 86 18 190/91 (124) 96 10/29/16 16:30 84 176/80 (112) 10/29/16 16:00 98.5 84 18 190/80 (116) 94 10/29/16 13:00 168/80 (109) 10/29/16 12:00 98.2 87 18 178/86 (116) 94 -: 10/26/16 0700 10/30/16 1054 Tubes & Lines: Vas-Cath, Black Physical Exam General Appearance: Well Developed, No Acute Distress, Comfortable, Obese Appearance Remarks intubated. Eyes Eye Exam: Pupils Equal Throat Throat Exam: Oral Mucosa [place] & Moist Neck Neck Exam: Neck Supple Pulmonary Resp Exam: Breath Sounds Equal, No Distress, Rhonchi, Decreased Bases Cardiology CV Exam: Regular, Normal Sinus Rhythm, Good Perfusion Gastrointestinal/Abdomen GI Exam: Soft, Non-Tender, Bowel Sounds Present GI Remarks obese. Musculoskeletal MS Exam: Joints Intact, Normal Tone, Unable to Ambulate Integumentary Skin Exam: Warm, Dry, Intact Skin Remarks skin desquamation. Extremeties Extremities Exam: Pedal Pulses Palpable, Moderate Edema, Dependent Edema Neurologic Neuro Exam: Alert, Awake, Oriented, Speech Clear, Moving All Extremities Neuro Remarks appears to be awake, appears to follow some commands. Psychiatric Psych Exam: Appropriate Responses Assessment/Plan Discussed Condition With: Patient Assessment Summary: FREDI/Acute Renal Failure Problem List: (1) Acute renal failure ICD Codes: N17.9 - Acute kidney failure, unspecified Status: Acute Plan: She apparently has a baseline creatinine of 1mg/dL FREDI from [facility], secondary to dehydration, also the possibility of vancomycin induced nephrotoxicity, allergic interstitial nephritis. may also be due to sepsis Non olgiuric HD initiated on 10/13/16, on TTS HD schedule Continue to monitor renal function, await renal recovery She has vascath in place; may need permcath exchange if HD will be ongoing; however given sepsis will delay exchange at this time and will need ID approval. Avoid nephrotoxic agents such as iodinated contrast, aminoglycosides, NSAIDS if possible. Potassium replacement ordered. (2) Sepsis ICD Codes: A41.9 - Sepsis, unspecified organism Plan: + Pseudomonas in the blood, and gram stain of the wound. Currently on Cefepime (x 6 weeks) and Daptomycin (until 10/30). Oral Diflucan was added for valencia in urine remove black catheter if no reason to keep it in ID is following PICC removed on admission (3) Metabolic acidosis ICD Codes: E87.2 - Acidosis Status: Acute Plan: Corrected, monitor (4) Anemia ICD Codes: D64.9 - Anemia Status: Acute Plan: Hb improved, monitor (5) Vitamin D deficiency ICD Codes: E55.9 - Vitamin D deficiency, unspecified Plan: replacement ordered Problem Qualifiers (1) Acute renal failure: Qualified Codes: N17.9 - Acute kidney failure, unspecified (2) Anemia: Qualified Codes: D64.9 - Anemia, unspecified Francisco Javier Quiros MD Oct 30, 2016 11:29
[2016-10-30 12:24] LABS: BLOOD GAS BASE EXCESS 2.4 mmol/L (-2-2); BLOOD GAS CARBOXYHEMOGLOBIN 2.2 % (0-4); BLOOD GAS HCO3 26 mmol/L (22-26); BLOOD GAS METHEMOGLOBIN 0.8 % (0-2); BLOOD GAS O2 HGB SATURATION 95 % (90-100); BLOOD GAS OXYGEN CONTENT 12.7 Vol % (12.0-20.0); BLOOD GAS PCO2 35 mmHg (38-42); BLOOD GAS PO2 88 mmHg (61-120); BLOOD GAS TOTAL HGB 9.5 G/DL (12.0-16.0); CRITICAL VALUE NO; DRAW SITE RT RADIAL; FIO2 21 %; NUMBER OF ARTERIAL PUNCTURES 2; STAT YES; TEMP CORR TO 98.6; ULNAR PULSE PRESENT
[2016-10-30] MEDS: CHOLECALCIFEROL (VIT D3) 5000 UNIT CAP PO SCH (13:40)
[2016-10-30] MEDS: CEFEPIME INJ 1,000 MG in SODIUM CHLORIDE 0.9% INJ 100 ML IV SCH (13:41)
[2016-10-30] MEDS: METOPROLOL TARTRATE 25 MG TAB PO SCH (13:41)
[2016-10-30] MEDS: EUCERIN CREAM 120 GM JAR TOPICAL PRN (13:50)
[2016-10-30] MEDS: LACTIC ACID (AMMONIUM LACTATE) 12% LOTION 225 GM BTL TOPICAL SCH ×2 (13:50→21:00)
[2016-10-30] MEDS ORDERED: POTASSIUM CHLORIDE 20 MEQ CONTROLLED RELEASE TAB PO ONE (14:30)
[2016-10-30] MEDS: FLUCONAZOLE 100 MG TAB PO SCH (18:01)
--- NOTE | 2016-10-30 18:23 | HHI.IDPN ---
Subjective Subjective Remarks is a 51 y/o F from a SNF who was being treated for chronic LLE cellulitis, non healing ulcer. Patient's past medical history significant for diabetes type 2 uncontrolled, diabetic nephropathy with baseline creatinine of 1.2, legal blindness likely secondary to diabetic retinopathy. She has a history of recurrent cellulitis and a nonhealing ulcer and has been treated for osteomyelitis in the past. Patient has been treated with IV antibiotics using PICC line in the past. Per discussion with her PCP at [facility] patient has received IV antibiotics multiple times in the past. [facility] and decision was made to start IV antibiotics Vanco IV and possibly Zosyn IV using a PICC line. Unknown duration of PICC line at this point. Patient presents with worsening creatinine found at her SNF and altered mental status. On arrival to the ED, she had a Cr 7.7, has a chronic indwelling black catheter and has not had any urine per report in the last few days. Renal ultrasound was negative for hydronephrosis. She also has a excoriating rash over her trunk and arms. She was initially admitted to the floor, but rapid response called for hypotension and altered mental status. She was severely acidotic with a pH of 7.1, base deficit 10, pco2 48. At the time of my evaluation patient is currently in intensive care unit and has been intubated for altered mental status. Patient is also undergoing placement of PICC line. She has no urine output and has a Black bag in place. This Black was present on admission. She also had diarrhea on admission. Her risk factors for C. difficile her prior antibiotic usage and senior care placement. She is currently sedated and not on any vasopressors. Infectious disease is consulted for evaluation and management of severe sepsis with multiorgan dysfunction syndrome, possible line related infection, acute osteomyelitis. Overnight events and notes reviewed Temps ok On HD. All antibiotics scheduled post HD. Wound C/S PSAE UC with yeast ABLANIA with no vegetation per my discussion with and . Rash persistent: ? fungal. Antibiotics Cubicin Flagyl Cefepime Micafungin Lines LIJ vascath LSC TLC Past Medical History DM Legally blind COPD HTN anemia sleep apnea CVA neuropathy Afib Allergies: Coded Allergies: fentanyl (Verified Allergy, Unknown, 10/25/16) morphine (Unverified Allergy, Unknown, 09/26/16) vancomycin (Verified Adverse Reaction, Severe, Rash, 10/17/16) Objective . Vital Signs Date Time Temp Pulse Resp B/P (MAP) Pulse Ox O2 Delivery O2 Flow Rate FiO2 10/30/16 16:00 98.0 76 20 168/84 (112) 97 10/30/16 12:00 97.7 91 20 197/90 (125) 99 10/30/16 10:33 87 10/30/16 09:49 96 10/30/16 09:15 Room Air 10/30/16 08:00 98.6 87 20 187/92 (123) 93 10/30/16 07:59 85 10/30/16 05:51 170/100 (123) 10/30/16 04:00 96 Room Air 10/30/16 04:00 98.1 88 18 180/90 (120) 96 10/30/16 01:51 170/96 (120) 10/30/16 00:00 95 Room Air 10/29/16 22:28 97 10/29/16 20:00 85 10/29/16 20:00 98.1 84 18 188/98 (128) 97 10/30/16 10/30/16 10/31/16 15:00 23:00 07:00 Intake Total 100 ml Balance 100 ml IV Total 100 ml . Laboratory Tests Test 10/30/16 10:54 Blood Urea Nitrogen 25 MG/DL Creatinine 3.78 MG/DL Random Glucose 122 MG/DL Calcium Level 8.5 MG/DL Magnesium Level 1.9 MG/DL Sodium Level 137 MEQ/L Potassium Level 3.2 MEQ/L Chloride Level 100 MEQ/L Carbon Dioxide Level 24.7 MEQ/L Anion Gap 12 MEQ/L Estimat Glomerular Filtration Rate 13 ML/MIN Imaging Upper Extremity Ultrasound 10/13/16 0000 Signed Impressions: Service Date/Time: Thursday, October 13, 2016 09:17 - CONCLUSION: 1. No DVT. 2. Subcutaneous edema observed. Wilner Potter Jr., MD Lower Extremity Ultrasound 10/13/16 0000 Signed Impressions: Service Date/Time: Thursday, October 13, 2016 08:57 - CONCLUSION: 1. Study has some limitations as detailed above. No DVT observed. Wilner Potter Jr., MD Lower Extremity CT 10/13/16 0000 Signed Impressions: Service Date/Time: Thursday, October 13, 2016 21:35 - CONCLUSION: Ulcer at the region of the base of the fifth metatarsal. There appears to be chronic and acute changes in this region. The acute changes are worrisome for osteomyelitis at the base of the fifth metatarsal. Ricco Fuentes MD Chest X-Ray 10/13/16 0000 Signed Impressions: Service Date/Time: Thursday, October 13, 2016 15:05 - CONCLUSION: Support apparatus in good position without pneumothorax. Roman Montiel MD FACR Chest CT 10/13/16 0000 Signed Impressions: Service Date/Time: Thursday, October 13, 2016 21:27 - CONCLUSION: 1. Patchy areas of consolidation seen bilaterally being worse on the right. These could represent areas of inflammatory/infectious disease. Focal round lesions to suggest septic emboli are not clearly identified. 2. Edema seen at the right superficial chest and abdomen regions. The cause of for this asymmetric edema is not known. 3. Mild ascites. Ricco Fuentes MD Abdomen CT 10/13/16 0000 Signed Impressions: Service Date/Time: Thursday, October 13, 2016 21:27 - CONCLUSION: 1. Mild ascites seen around the liver. 2. Superficial edema seen bilaterally in the subcutaneous tissues. This is asymmetric and being much more prominent on the right. 3. Small area of increased density seen independently in the gallbladder representing either small gallstones or milk of calcium. Ricco Fuentes MD Renal Ultrasound 10/12/16 0000 Signed Impressions: Service Date/Time: September 20:54 - CONCLUSION: Normal appearance of the kidneys. Ricco Fuentes MD Physical Exam GENERAL:Morbidly obese dark skinned female, in no apparent distress. Eyes open, on the vent SKIN: Diffuse rash in her whole trunk UE and thighs and upper chest wall. Now with skin peeling noted. HEAD: Atraumatic. Normocephalic. No temporal or scalp tenderness. EYES: Pupils equal round and reactive. No scleral icterus. No injection or drainage. ENT: Intubated. NECK: Large neck. Has bleeding at vascath site CARDIOVASCULAR: Distant HS. No murmur audible. RESPIRATORY: Clear to auscultation. Breath sounds equal bilaterally. No wheezes , rales, or rhonchi. GASTROINTESTINAL: Abdomen soft, obese, no reaction to palpation, no guarding, pannus with erythema and moisture. MUSCULOSKELETAL: Left LE with ulcer noted with packing with foul smelling discharge. 1.5 cm opening, deep approx 1.5 cm ? bone probed. Chronic venous stasis changes. NEUROLOGICAL: Awake Sacrum: 2 non stageable ulcers. Psych: could not be assessed. Assessment & Plan Remarks Assessment and Plan Severe Sepsis present on admission PSAE and CGNS bacteremia sepsis, ?PICC, ?L foot Probable PICC line site infection Pneumonia: septic emboli or aspiration PNA. Acute renal failure: Vanco induced, prerenal. On hemodialysis Rash: Vanco IV, fungemia related diffuse rash Acute metabolic encephalopathy: sepsis, metabolic. DM2 with Nephropathy, legal blondness (? DM retinopathy). Acute Osteomyelitis, non healing ulcer likely infected as purulence noted. Diarrhea present on admission UTI Recs: Continue Cefepime IV (on days of HD to be given after HD) will need 6 weeks IV. DC Diflucan oral. d/w Nephrology: once determined plan for nursing home HD or not I will be able to provide DC recs. Patient will need PICC line on discharge as alternative to meds given in HD using permacath. Will follow prn this week. IF any issues in the interim please call me sooner. Once Nephro clears for discharge please call me to assess appropriate IV antibiotic plan (in HD via permacath or PICC). No PICC till cleared by ID and Nephrology. Lilibeth Johnson MD Oct 30, 2016 18:23
[2016-10-31] VITALS (12 sets, daily range): BP systolic 154–181; BP diastolic 81–97; PULSE 84–94; RESP 16–18; TEMP 97.5–98.3; O2SAT 95–100
[2016-10-31] MEDS: hydrALAZINE HCL 25 MG TAB PO SCH ×2 (00:59→08:25)
[2016-10-31] MEDS: RESP: IPRATROPIUM 0.5 MG/2.5 ML NEB NEB SCH ×4 (03:34→21:12)
[2016-10-31] MEDS: diphenhydrAMINE HCL 50 MG CAP PO PRN ×2 (05:15→17:27)
[2016-10-31] MEDS: INSULIN NovoLIN REGULAR SUPPLEMENTAL SCALE SQ SCH ×4 (06:00→17:28)
[2016-10-31] MEDS: FAMOTIDINE 20 MG TAB PO SCH ×2 (08:25→22:24)
[2016-10-31] MEDS: CHLORHEXIDINE 0.12% (ORAL KIT) 15 ML CUP MT SCH ×2 (08:25→20:00)
[2016-10-31] MEDS: NIFEdipine 30 MG SUSTAINED RELEASE TAB PO SCH (08:25)
[2016-10-31] MEDS: LACTOBACILLUS ACIDOPHILUS TAB PO SCH ×3 (08:25→17:27)
[2016-10-31] MEDS: THIAMINE HCL 100 MG TAB PO SCH (08:25)
[2016-10-31] MEDS: CHOLECALCIFEROL (VIT D3) 5000 UNIT CAP PO SCH (08:25)
[2016-10-31] MEDS: SODIUM CHLORIDE 0.9% FLUSH 10 ML FLUSH IV FLUSH SCH ×2 (08:25→22:25)
[2016-10-31] MEDS: METOPROLOL TARTRATE 25 MG TAB PO SCH (08:25)
[2016-10-31] MEDS: DOCUSATE SODIUM 50 MG/SENNA 8.6 MG TAB PO SCH ×2 (08:25→21:00)
[2016-10-31] MEDS: LACTIC ACID (AMMONIUM LACTATE) 12% LOTION 225 GM BTL TOPICAL SCH ×2 (08:26→21:00)
--- NOTE | 2016-10-31 10:34 | HHI.PR ---
Subjective Remarks in no acute distress. awake and alert today. no fever. has some itching. d/w the RN and no acute issues over night. Objective Vitals Vital Signs Date Time Temp Pulse Resp B/P (MAP) Pulse Ox O2 Delivery O2 Flow Rate FiO2 10/31/16 08:33 Room Air 10/31/16 08:00 97.9 91 18 171/81 (111) 95 10/31/16 07:37 97 21 10/31/16 05:30 98.0 94 18 166/88 (114) 97 10/31/16 01:00 98.3 86 18 154/97 (116) 95 10/30/16 22:40 98.2 86 18 176/97 (123) 100 10/30/16 22:40 Room Air 10/30/16 21:06 95 10/30/16 20:05 84 10/30/16 16:00 98.0 76 20 168/84 (112) 97 10/30/16 12:00 97.7 91 20 197/90 (125) 99 10/30/16 10:33 87 I/O 10/30/16 10/30/16 10/30/16 10/31/16 10/31/16 10/31/16 07:00 15:00 23:00 07:00 15:00 23:00 Intake Total 100 ml 100 ml 640 ml Output Total 300 ml 500 ml Balance -200 ml 100 ml 140 ml Intake Oral 100 ml 640 ml IV Total 100 ml Output Urine Total 300 ml 500 ml # Bowel Movements 1 Result Diagram: 10/30/16 1054 Objective Remarks GENERAL: This is a well-nourished, well-developed patient, in no apparent distress. CARDIOVASCULAR: Regular rate and regular rhythm without murmurs, gallops, or rubs. RESPIRATORY: Clear to auscultation. Breath sounds equal bilaterally. No wheezes , rales, or rhonchi. GASTROINTESTINAL: Abdomen soft, non-tender, nondistended. Normal, active bowel sounds MUSCULOSKELETAL: Extremities without clubbing, cyanosis, or edema. NEURO: Alert & Oriented x4 to person, place, time, situation. Moves all ext x4 Medications and IVs Current Medications Sodium Chloride 1,000 ml @ 999 mls/hr BOLUS ONCE IV Last administered on 10/12t 18:59; Start 10/12/16 at 18:15; Stop 10/12/16 at 19:15; Status DC Sodium Bicarbonate 150 meq/Sterile Water 1,000 ml @ 100 mls/hr Q10H IV Last administered on 10/12/16 23:39; Start 10/12/16 at 20:15; Stop 10/13/16 at 05:52 ; Status DC Sodium Chloride (NS Flush) 2 ml UNSCH PRN IV FLUSH FLUSH AFTER USING IV ACCESS ; Start 10/12/16 at 20:15 Sodium Chloride (NS Flush) 2 ml BID IV FLUSH Last administered on 10/31/16 08: 25; Start 10/12/16 at 21:00 Heparin Sodium (Porcine) (Heparin Inj) 5,000 units Q8H SQ Last administered on 10/18/16 12:42; Start 10/13/16 at 06:00; Stop 10/18/16 at 15:57; Status DC Naloxone HCl (Narcan Inj) 0.4 mg UNSCH PRN IV SEE LABEL COMMENTS; Start at 20:15 Calcium Gluconate (Calcium Gluconate Inj) 1 gm ONCE ONCE IV PUSH ; Start at 20:15; Stop 10/12/16 at 21:51; Status DC Insulin Human Regular (NovoLIN R INJ) 10 units ONCE ONCE IV PUSH Last administered on 10/12/16 23:54; Start 10/12/16 at 20:15; Stop 10/12/16 at 21:53 ; Status DC Dextrose (D50w (Syr) Inj) 50 ml ONCE ONCE IV PUSH Last administered on 23:53; Start 10/12/16 at 20:15; Stop 10/12/16 at 21:52; Status DC Sodium Polystyrene Sulfonate (Kayexalate Liq) 30 gm ONCE ONCE PO Last administered on 10/12/16 23:40; Start 10/12/16 at 20:15; Stop 10/12/16 at 21:54 ; Status DC Dextrose (D50w (Vial) Inj) 50 ml UNSCH PRN IV HYPOGLYCEMIA-SEE COMMENTS; Start 10/12/16 at 20:15; Stop 10/13/16 at 07:33; Status DC Glucagon (Glucagon Inj) 1 mg UNSCH PRN OTHER HYPOGLYCEMIA-SEE COMMENTS; Start 10/12/16 at 20:15 Insulin Aspart (NovoLOG SUPPLEMENTAL SCALE) 1 ACHS SLIDING SCALE SQ ; Start at 21:00; Stop 10/13/16 at 07:30; Status DC Calcium Gluconate 1 gm/Sodium Chloride 110 ml @ 110 mls/hr ONCE ONCE IV Last administered on 10/12/16 23:54; Start 10/12/16 at 23:00; Stop 10/12/16 at 23:59 ; Status DC Ipratropium [place] (Atrovent Neb) 0.5 mg Q6HR NEB NEB Last administered on 07:36; Start 10/13/16 at 04:00 Ipratropium [place] (Atrovent Neb) 0.5 mg Q2HR NEB PRN NEB wheezing; Start 10/13 at 00:45 Amitriptyline HCl (Elavil) 50 mg HS PO ; Start 10/13/16 at 21:00; Stop 10/13/16 at 21:00; Status DC Hydralazine HCl (Apresoline) 100 mg TID PO ; Start 10/13/16 at 09:00; Stop at 09:00; Status DC Insulin Detemir (Levemir Inj) 20 units AC BREAKFAST SQ ; Start 10/13/16 at 07:00 ; Stop 10/13/16 at 07:00; Status DC Insulin Detemir (Levemir Inj) 25 units HS SQ ; Start 10/13/16 at 21:00; Stop 10/13 at 21:00; Status DC Labetalol HCl (Trandate) 200 mg TID PO ; Start 10/13/16 at 09:00; Stop 10/13/16 at 09:00; Status DC Lactobacillus Acidophilus (Lactinex) 1 tab TIDAC PO Last administered on 08:25; Start 10/13/16 at 08:00 Loratadine (Claritin) 10 mg DAILY PO ; Start 10/13/16 at 09:00; Stop 10/13/16 at 09:00; Status DC Montelukast Sodium (Singulair) 10 mg HS PO ; Start 10/13/16 at 21:00; Stop at 21:00; Status DC Nifedipine (Procardia Xl) 60 mg TID PO ; Start 10/13/16 at 09:00; Stop 10/13/16 at 09:00; Status DC Pravastatin Sodium (Pravachol) 40 mg DAILY PO ; Start 10/13/16 at 09:00; Stop 10/13/16 at 09:00; Status DC Sodium Chloride 1,000 ml @ 999 mls/hr BOLUS ONCE IV Last administered on 05:42; Start 10/13/16 at 04:45; Stop 10/13/16 at 05:45; Status DC Sodium Bicarbonate 150 meq/Dextrose 1,150 ml @ 75 mls/hr [id number] IV ; Start 10/13/16 at 08:00; Stop 10/13/16 at 08:00; Status DC Norepinephrine Bitartrate 250 ml @ As Directed STK-MED ONCE IV ; Start 10/13/16 at 07:25; Stop 10/13/16 at 07:26; Status DC Norepinephrine Bitartrate 250 ml @ 7.5 mls/hr TITRATE PRN IV Blood pressure management; Start 10/13/16 at 07:30; Status UNV Terbutaline Sulfate (Brethine Inj) 1 mg UNSCH PRN SQ For Extravasation; Start 10/13/16 at 07:30; Stop 10/28/16 at 11:24; Status DC Sodium Bicarbonate (Sodium Bicarbonate 8.4% Inj) 200 meq ONCE ONCE IV PUSH Last administered on 10/13/16 07:30; Start 10/13/16 at 07:30; Stop 10/13/16 at 07: 35; Status DC Dextrose (D50w (Vial) Inj) 25 ml UNSCH PRN IV PUSH HYPOGLYCEMIA-SEE COMMENTS; Start 10/13/16 at 07:30 Insulin Human Regular (NovoLIN R SUPPLEMENTAL SCALE) 1 Q6HR SQ Last administered on 10/26/16 12:00; Start 10/13/16 at 12:00 Linezolid 300 ml @ 300 mls/hr Q12H IV ; Start 10/13/16 at 08:00; Stop 10/13/16 at 08:07; Status DC Piperacillin Sod/ Tazobactam Sod 50 ml @ 100 mls/hr Q8H IV Last administered on 10/13/16 09:07; Start 10/13/16 at 09:00; Stop 10/13/16 at 14:13; Status DC Norepinephrine Bitartrate 16 mg/ Dextrose 250 ml @ 1.87 mls/hr TITRATE PRN IV Maintain MAP > 65 mmHg; Start 10/13/16 at 08:00; Stop 10/28/16 at 11:24; Status DC Epinephrine HCl 2 mg/Dextrose 252 ml @ 15.12 mls/ hr TITRATE PRN IV Blood Pressure Management; Start 10/13/16 at 08:15; Stop 10/13/16 at 08:47; Status DC Ketamine HCl (Ketalar Inj) 50 mg STAT ONCE IV PUSH ; Start 10/13/16 at 08:15; Stop 10/13/16 at 08:33; Status DC Midazolam HCl (Versed Inj) 2 mg STAT ONCE IV PUSH ; Start 10/13/16 at 08:15; Stop 10/13/16 at 08:31; Status DC Clindamycin Phosphate 900 mg/ Sodium Chloride 106 ml @ 212 mls/hr Q8H IV Last administered on 10/13/16 09:07; Start 10/13/16 at 09:00; Stop 10/13/16 at 13:55; Status DC Epinephrine HCl 8 mg/Dextrose 250 ml @ 5.62 mls/hr TITRATE PRN IV Blood Pressure Management Last administered on 10/13/16 09:07; Start 10/13/16 at 09:00 ; Stop 10/28/16 at 11:24; Status DC Sodium Bicarbonate (Sodium Bicarbonate 8.4% Inj) 200 meq ONCE ONCE IV PUSH Last administered on 10/13/16 11:43; Start 10/13/16 at 11:30; Stop 10/13/16 at 11: 31; Status DC Etomidate (Amidate Inj) 20 mg ONCE ONCE IV PUSH ; Start 10/13/16 at 13:15; Stop 10/13/16 at 14:37; Status DC Midazolam HCl (Versed Inj) 5 mg ONCE ONCE IV PUSH Last administered on 13:15; Start 10/13/16 at 13:15; Stop 10/13/16 at 14:37; Status DC Rocuronium [place] (Zemuron Inj) 100 mg BOLUS ONCE IV Last administered on 10/13 13:15; Start 10/13/16 at 13:15; Stop 10/13/16 at 14:37; Status DC Midazolam HCl (Versed Inj) 5 mg STK-MED ONCE .ROUTE Last administered on 13:20; Start 10/13/16 at 13:20; Stop 10/13/16 at 13:21; Status DC Micafungin Sodium 150 mg/Sodium Chloride 100 ml @ 100 mls/hr Q24H IV Last administered on 10/16/16 16:12; Start 10/13/16 at 17:00; Stop 10/16/16 at 17:40; Status DC Daptomycin 1000 mg/Sodium Chloride 100 ml @ 200 mls/hr Q48H IV Last administered on 10/27/16 16:58; Start 10/13/16 at 16:00; Stop 10/30/16 at 15:59 ; Status DC Cefepime HCl 1000 mg/Sodium Chloride 100 ml @ 200 mls/hr Q24H IV Last administered on 10/30/16 13:41; Start 10/13/16 at 15:00 Metronidazole 100 ml @ 100 mls/hr Q8H IV Last administered on 10/16/16 15:13; Start 10/13/16 at 16:00; Stop 10/16/16 at 17:40; Status DC Propofol 100 ml @ As Directed STK-MED ONCE .ROUTE ; Start 10/13/16 at 15:31; Stop 10/13/16 at 15:32; Status DC Sodium Chloride 1,000 ml @ 0 mls/hr Q0M PRN OTHER For Prime & Rinse Back Last administered on 10/21/16 10:43; Start 10/13/16 at 15:54 Heparin Sodium (Porcine) (Heparin Inj) 8,000 units UNSCH PRN IVF WITH DIALYSIS ; Start 10/13/16 at 16:00 Sodium Chloride 1,000 ml @ 200 mls/hr Q5H PRN IV WITH DIALYSIS Last administered on 10/28/16 17:35; Start 10/13/16 at 15:54 Sodium Chloride 1,000 ml @ 0 mls/hr Q0M PRN OTHER WITH DIALYSIS; Start 10/13/16 at 15:54 Mannitol (Mannitol Inj) 12.5 gm UNSCH PRN IV WITH DIALYSIS; Start 10/13/16 at 16 :00 Albumin Human (Albumin 25% Inj) 25 gm UNSCH PRN IV WITH DIALYSIS Last administered on 10/14/16 08:19; Start 10/13/16 at 16:00 Sodium Chloride (NS Flush) 5 ml UNSCH PRN IV FLUSH WITH DIALYSIS Last administered on 10/21/16 10:42; Start 10/13/16 at 16:00 Heparin Sodium (Porcine) (Heparin Inj) UNSCH PRN .XX WITH DIALYSIS Last administered on 10/28/16 17:35; Start 10/13/16 at 16:00 Gentamicin Sulfate (Gentamicin (Dialysis) Inj) 20 mg UNSCH PRN IV WITH DIALYSIS Last administered on 10/28/16 17:36; Start 10/13/16 at 16:00 Ondansetron HCl (Zofran Inj) 4 mg UNSCH PRN IV WITH DIALYSIS; Start 10/13/16 at 16:00 Acetaminophen (Tylenol) 650 mg UNSCH PRN PO for headach, pain, temp > 101F Last administered on 10/21/16 20:36; Start 10/13/16 at 16:00 Diphenhydramine HCl (Benadryl) 25 mg UNSCH PRN PO for hives/itching/ anaphylaxis Last administered on 10/28/16 06:35; Start 10/13/16 at 16:00 Nitroglycerin (Nitrostat Sl) 0.4 mg UNSCH PRN SL CHEST PAIN; Start 10/13/16 at 16:00 Clonidine (Catapres) 0.1 mg UNSCH PRN PO for BP > 180/100 X 2 readings Last administered on 10/29/16 16:52; Start 10/13/16 at 16:00; Stop 10/29/16 at 20:11 ; Status DC Gelatin (Gelfoam 12 Mm/7 Mm Top) 1 foam UNSCH PRN TOP SEE LABEL COMMENTS Last administered on 10/15/16 10:39; Start 10/13/16 at 16:00 Propofol 100 ml @ As Directed STK-MED ONCE .ROUTE ; Start 10/13/16 at 18:39; Stop 10/13/16 at 18:40; Status DC Propofol 100 ml @ 4.128 mls/ hr TITRATE PRN IV SEDATION Last administered on 13:36; Start 10/13/16 at 19:15; Stop 10/28/16 at 11:24; Status DC Famotidine (Pepcid Liq) 20 mg BID NG Last administered on 10/15/16 09:19; Start 10/14/16 at 21:00; Stop 10/15/16 at 10:04; Status DC Silver Nitrate/ Potassium Nitrate (Silver Nitrate Applicators) 1 appl UNSCH X1 ONCE TOPICAL Last administered on 10/15/16 09:19; Start 10/15/16 at 09:00; Stop 10/15/16 at 09:01; Status DC Famotidine (Pepcid Liq) 10 mg BID NG Last administered on 10/21/16 09:00; Start 10/15/16 at 21:00; Stop 10/21/16 at 20:09; Status DC Diphenhydramine HCl (Benadryl) 25 mg BID PO Last administered on 10/17/16 08:55 ; Start 10/15/16 at 21:00; Stop 10/17/16 at 09:01; Status DC Dexamethasone Sodium Phosphate (Decadron Inj) 4 mg Q6HR IV PUSH Last administered on 10/16/16 17:57; Start 10/16/16 at 10:00; Stop 10/16/16 at 18:01; Status DC Hydralazine HCl (Apresoline Inj) 20 mg Q3H PRN IV PUSH SBP > 170 Last administered on 10/30/16 23:02; Start 10/16/16 at 15:45 Labetalol HCl (Trandate Inj) 20 mg Q3H PRN IV PUSH SBP > 160 Last administered on 10/21/16 22:05; Start 10/16/16 at 15:45 Atropine Sulfate (Atropine Inj) 1 mg STK-MED ONCE IV ; Start 10/13/16 at 05:00; Stop 10/17/16 at 11:07; Status DC Sodium Bicarbonate (Sodium Bicarbonate 8.4% Inj) 50 meq STK-MED ONCE IV ; Start 10/13/16 at 05:00; Stop 10/17/16 at 11:08; Status DC Sodium Chloride 250 ml @ 15 mls/hr ONCE ONCE IV ; Start 10/18/16 at 09:30; Stop 10/19/16 at 02:09; Status DC Epinephrine HCl (EPINEPHrine (1:10,000) INJ) 1 mg STK-MED ONCE .ROUTE ; Start at 14:51; Stop 10/18/16 at 14:52; Status DC Alteplase, Recombinant (Activase Bolus) 9 mg ONCE ONCE IV Last administered on 10/18/16 16:00; Start 10/18/16 at 16:00; Stop 10/18/16 at 16:03; Status DC Alteplase, Recombinant 81 mg/ Syringe / Bag 81 ml @ 81 mls/hr ONCE ONCE IV Last administered on 10/18/16 16:01; Start 10/18/16 at 16:00; Stop 10/18/16 at 16: 59; Status DC Sodium Chloride (NS Inj) 30 ml ONCE ONCE IVF Last administered on 10/18/16 16: 00; Start 10/18/16 at 16:00; Stop 10/18/16 at 16:02; Status DC Miscellaneous Information No Heparin, Warfarin, Aspir... UNSCH PRN XX SEE DOSE INSTRUCTIONS; Start 10/18/16 at 16:00; Stop 10/19/16 at 15:59; Status DC Micafungin Sodium 150 mg/Sodium Chloride 100 ml @ 100 mls/hr Q24H IV Last administered on 10/18/16 18:32; Start 10/18/16 at 18:00; Stop 10/19/16 at 14:43; Status DC Chlorhexidine Gluconate (Peridex 0.12% Liq) 15 ml BID@08,20 MT Last administered on 10/28/16 10:50; Start 10/18/16 at 20:00 Dexamethasone Sodium Phosphate (Decadron Inj) 4 mg STAT ONCE IV PUSH Last administered on 10/19/16 11:50; Start 10/19/16 at 11:15; Stop 10/19/16 at 11:16; Status DC Racepinephrine (Racepinephrine 2.25% Neb) 0.5 ml STK-MED ONCE .ROUTE ; Start 10/19/16 at 13:19; Stop 10/19/16 at 13:20; Status DC Diphenhydramine HCl (Benadryl) 25 mg Q6H PRN PO ITCHING Last administered on 11:57; Start 10/21/16 at 15:30; Stop 10/23/16 at 10:29; Status DC Famotidine (Pepcid) 10 mg BID PO Last administered on 10/31/16 08:25; Start at 21:00 Calamine (Calamine Lotion) 1 applic Q6H PRN TOPICAL irritated skin Last administered on 10/27/16 12:00; Start 10/21/16 at 22:30 Thiamine HCl (Vitamin B1) 100 mg DAILY PO Last administered on 10/31/16 08:25 ; Start 10/23/16 at 09:00 Diphenhydramine HCl (Benadryl) 50 mg Q6H PRN PO ITCHING Last administered on 05:15; Start 10/23/16 at 15:30 Senna/Docusate Sodium (Maira-Colace) 2 tab ONCE ONCE PO Last administered on 12:11; Start 10/23/16 at 10:30; Stop 10/23/16 at 11:05; Status DC Magnesium Hydroxide (Milk Of Lion Liq) 30 ml ONCE ONCE PO Last administered on 10/23/16 12:11; Start 10/23/16 at 10:30; Stop 10/23/16 at 11:06 ; Status DC Senna/Docusate Sodium (Maira-Colace) 1 tab BID PO Last administered on 09:08; Start 10/23/16 at 21:00 Lactic Acid (Lac-Hydrin 12% Lotion) 1 applic BID TOPICAL Last administered on 08:26; Start 10/23/16 at 21:00 Cholecalciferol (Vitamin D3) 5,000 units DAILY PO Last administered on 08:25; Start 10/24/16 at 09:00 Cholecalciferol (Vitamin D3) 10,000 units ONCE ONCE PO Last administered on 18:06; Start 10/23/16 at 17:45; Stop 10/23/16 at 17:46; Status DC Senna/Docusate Sodium (Maira-Colace) 1 tab BID PO ; Start 10/24/16 at 21:00; Stop 10/24/16 at 21:00; Status DC Fluconazole (Diflucan) 100 mg Q48H PO Last administered on 10/30/16 18:01; Start 10/24/16 at 17:00; Stop 10/30/16 at 18:24; Status DC Hydralazine HCl (Apresoline) 25 mg Q12HR PO Last administered on 10/28/16 10: 48; Start 10/26/16 at 11:30; Stop 10/28/16 at 13:51; Status DC Diphenhydramine HCl (Benadryl 2% Cream) APPLY TO AFFECTED AREA Q4H PRN TOPICAL ITCHING; Start 10/27/16 at 17:30 Nifedipine (Procardia Xl) 30 mg ONCE ONCE PO Last administered on 10/28/16 18 :37; Start 10/28/16 at 14:30; Stop 10/28/16 at 14:31; Status DC Hydralazine HCl (Apresoline) 25 mg Q8H PO Last administered on 10/31/16 08:25 ; Start 10/28/16 at 16:00 Multi-Ingredient Ointment (Eucerin Cream) 1 applic Q6H PRN TOPICAL DRY SKIN Last administered on 10/30/16 13:50; Start 10/29/16 at 12:15 Nifedipine (Procardia Xl) 30 mg DAILY PO Last administered on 10/31/16 08:25; Start 10/29/16 at 12:15 Clonidine (Catapres) 0.1 mg Q8H PRN PO for BP > 180/100 X 2 readings Last administered on 10/29/16 21:45; Start 10/29/16 at 20:15 Metoprolol Tartrate (Lopressor) 25 mg DAILY PO Last administered on 10/31/16 08:25; Start 10/30/16 at 10:00 Potassium Chloride (KCl) 30 meq ONCE ONCE PO Last administered on 10/30/16 13 :40; Start 10/30/16 at 11:45; Stop 10/30/16 at 11:46; Status DC Potassium Chloride (KCl) 20 meq ONCE ONCE PO Last administered on 10/30/16 18 :01; Start 10/30/16 at 14:30; Stop 10/30/16 at 14:31; Status DC A/P Assessment and Plan A/P Suspected stroke alert with acute change in neurologic status 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 Patient was administered IV thrombolysis following evaluation by neurology Dr. Burton in view of concern for brain stem CVA while awaiting MRI brain on 10/18. Subsequently MRI/MRA brain unremarkable. - Urine tox screen came back positive for benzodiazepines placing concern for surreptitious benzodiazepine use as she does not have any benzodiazepine listed on her APR. non-sustained V-tach started on lopressor- echo with EF 60%. continue to monitor. Obesity Hypoventilation Syndrome COPD Sleep Apnea Acute hypoxic and hypercarbic respiratory failure- persistent, no improvement. Pulmonary Edema - intubated and then extubated 10/16. -Emergently intubated on 10/18 for airway protection due to altered mental status. Extubated on 10/19- now stable. Septic Shock- resolving. pseudomonas bacteremia Severe Tricuspid Regurgitation IV antibiotics per ID recommendations; on Cefepime. Acute kidney injury requiring renal replacement therapy - nephrology following - HD per nephrology. -- Strict IOs Severe metabolic acidosis- resolved Hyperkalemia- resolved. Morbid Obesity Advance by mouth diet Chronic anemia- likely secondary to chronic disease Septic Shock LLE osteomyelitis Pseudomonas bacteremia Gram Positive Bacteremia Pseudomonas osteomyelitis Fungal Urinary Tract Infection -Recommend transfusions of PRBCs to keep hemoglobin above 7 g percent. - ID following. - continue antibiotics per ID. Diabetes -Vitamin D deficiency. -- Patient had low vitamin D and was started on cholecalciferol. -- continue accu-check with sliding scale. hypertension-uncontrolled continue Procardia XL and metoprolol- increase hydralazine continue to monitor and adjust the regimen as needed. GI Prophylaxis pepcid DVT Prophylaxis -- SCDs Sub-cutaneous heparin Discharge Planning when cleared by ID and nephrology. Roseanna Murphy MD Oct 31, 2016 10:34
[2016-10-31 14:55] LABS: POTASSIUM 3.7 MEQ/L (3.5-5.1)
--- NOTE | 2016-10-31 16:29 | HHI.NPPN ---
Subjective General Problems: Anemia Renal Failure: Acute Interval History Urine output is improving. Renal function may be improving. She feels better. Review of Systems General Constitutional: Fatigue Ears, Nose, & Throat ENT Remarks loss of appetite Respiratory Lungs: SOB Cardiovascular Cardiac: Edema Endocrine Endocrine: Thirst Skin Skin: Skin Rash, Ulcers Skin Remarks generalized rash with peeling skin; ulcer planter surface left foot Objective Data Data Vital Signs Date Time Temp Pulse Resp B/P (MAP) Pulse Ox O2 Delivery O2 Flow Rate FiO2 10/31/16 12:19 98.1 89 18 161/86 (111) 97 10/31/16 11:09 90 10/31/16 08:33 Room Air 10/31/16 08:00 97.9 91 18 171/81 (111) 95 10/31/16 07:37 97 21 10/31/16 05:30 98.0 94 18 166/88 (114) 97 10/31/16 01:00 98.3 86 18 154/97 (116) 95 10/30/16 22:40 98.2 86 18 176/97 (123) 100 10/30/16 22:40 Room Air 10/30/16 21:06 95 10/30/16 20:05 84 -: 10/31/16 1350 Tubes & Lines: Vas-Cath, Shah Physical Exam General Appearance: Well Developed, No Acute Distress, Comfortable, Obese Appearance Remarks intubated. Eyes Eye Exam: Pupils Equal Throat Throat Exam: Oral Mucosa [place] & Moist Neck Neck Exam: Neck Supple Pulmonary Resp Exam: Breath Sounds Equal, No Distress, Rhonchi, Decreased Bases Cardiology CV Exam: Regular, Normal Sinus Rhythm, Good Perfusion Gastrointestinal/Abdomen GI Exam: Soft, Non-Tender, Bowel Sounds Present GI Remarks obese. Musculoskeletal MS Exam: Joints Intact, Normal Tone, Unable to Ambulate Integumentary Skin Exam: Warm, Dry, Intact Skin Remarks skin desquamation. Extremeties Extremities Exam: Pedal Pulses Palpable, Pitting Edema Neurologic Neuro Exam: Alert, Awake, Oriented, Speech Clear, Moving All Extremities Neuro Remarks appears to be awake, appears to follow some commands. Psychiatric Psych Exam: Appropriate Responses Assessment/Plan Discussed Condition With: Patient Assessment Summary: FREDI/Acute Renal Failure Problem List: (1) Acute renal failure ICD Codes: N17.9 - Acute kidney failure, unspecified Status: Acute Plan: She apparently has a baseline creatinine of 1mg/dL FREDI from ATN, secondary vancomycin induced nephrotoxicity, allergic interstitial nephritis. may also be due to sepsis Urine output is improving, creatinine was lower today than yesterday. HD initiated on 10/13/16, on TTS HD schedule currently, but most likely will hold dialysis on depending on the chemistries, and renal panel. Needs accurate documentation of urine output. Avoid nephrotoxic agents. (2) Sepsis ICD Codes: A41.9 - Sepsis, unspecified organism Plan: + Pseudomonas in the blood, and gram stain of the wound. Currently on Cefepime (x 6 weeks). No longer on Diflucan and Daptomycin. (3) Metabolic acidosis ICD Codes: E87.2 - Acidosis Status: Acute Plan: Corrected, monitor (4) Anemia ICD Codes: D64.9 - Anemia Status: Acute Plan: Hb improved, monitor (5) Vitamin D deficiency ICD Codes: E55.9 - Vitamin D deficiency, unspecified Plan: replacement ordered Problem Qualifiers (1) Acute renal failure: Qualified Codes: N17.9 - Acute kidney failure, unspecified (2) Anemia: Qualified Codes: D64.9 - Anemia, unspecified Francisco Javier Quiros MD Oct 31, 2016 16:29
[2016-10-31] MEDS: hydrALAZINE HCL 50 MG TAB PO SCH ×2 (17:27→22:24)
[2016-10-31] MEDS: CEFEPIME INJ 1,000 MG in SODIUM CHLORIDE 0.9% INJ 100 ML IV SCH (17:27)
[2016-10-31] MEDS: hydrALAZINE HCL 20 MG/ML VIAL IV PUSH PRN (20:30)
[2016-11-01] VITALS (9 sets, daily range): BP systolic 158–200; BP diastolic 78–100; PULSE 82–90; RESP 16–21; TEMP 97.4–98.8; O2SAT 95–100
[2016-11-01] MEDS: hydrALAZINE HCL 20 MG/ML VIAL IV PUSH PRN (00:39)
[2016-11-01] MEDS: diphenhydrAMINE HCL 50 MG CAP PO PRN ×2 (00:39→05:33)
[2016-11-01] MEDS: RESP: IPRATROPIUM 0.5 MG/2.5 ML NEB NEB SCH ×4 (04:00→21:06)
[2016-11-01] MEDS: hydrALAZINE HCL 50 MG TAB PO SCH ×3 (05:24→21:52)
[2016-11-01] MEDS: INSULIN NovoLIN REGULAR SUPPLEMENTAL SCALE SQ SCH ×4 (05:24→18:00)
[2016-11-01] MEDS: CHLORHEXIDINE 0.12% (ORAL KIT) 15 ML CUP MT SCH ×2 (08:00→20:00)
[2016-11-01] MEDS: LACTOBACILLUS ACIDOPHILUS TAB PO SCH ×3 (08:00→17:00)
[2016-11-01] MEDS: THIAMINE HCL 100 MG TAB PO SCH (09:00)
[2016-11-01] MEDS: METOPROLOL TARTRATE 25 MG TAB PO SCH (09:28)
[2016-11-01] MEDS: LACTIC ACID (AMMONIUM LACTATE) 12% LOTION 225 GM BTL TOPICAL SCH ×2 (09:28→21:53)
[2016-11-01] MEDS: NIFEdipine 30 MG SUSTAINED RELEASE TAB PO SCH (09:28)
[2016-11-01] MEDS: CHOLECALCIFEROL (VIT D3) 5000 UNIT CAP PO SCH (09:28)
[2016-11-01] MEDS: DOCUSATE SODIUM 50 MG/SENNA 8.6 MG TAB PO SCH ×2 (09:28→21:00)
[2016-11-01] MEDS: FAMOTIDINE 20 MG TAB PO SCH ×2 (09:28→21:52)
[2016-11-01] MEDS: SODIUM CHLORIDE 0.9% FLUSH 10 ML FLUSH IV FLUSH SCH ×2 (09:30→21:53)
[2016-11-01 09:56] LABS: BICARBONATE 26.5 MEQ/L (21.0-32.0); POTASSIUM 3.6 MEQ/L (3.5-5.1)
--- NOTE | 2016-11-01 11:24 | HHI.NPPN ---
Subjective General Problems: Anemia Renal Failure: Acute Interval History She is awake, reporting itching. Had dialysis yesterday with 2 liters UF. (Lizy Pineda) Review of Systems General Constitutional: Fatigue (Lizy Pineda) Eyes Eyes: Itching (Lizy Pineda) Ears, Nose, & Throat ENT Remarks loss of appetite (Lizy Pineda) Respiratory Lungs: SOB (Lizy Pineda) Cardiovascular Cardiac: Edema (Lizy Pineda) Endocrine Endocrine: Thirst (Lizy Pineda) Skin Skin: Skin Rash, Ulcers Skin Remarks generalized rash with peeling skin; ulcer planter surface left foot (Lizy Pineda) Objective Data Data Vital Signs Date Time Temp Pulse Resp B/P (MAP) Pulse Ox O2 Delivery O2 Flow Rate FiO2 11/01/16 08:00 98.2 89 18 172/80 (110) 97 11/01/16 07:57 98 11/01/16 05:47 Room Air 11/01/16 05:47 97.4 90 16 195/88 (123) 97 162/78 (106) 11/01/16 01:30 158/86 (110) 10/31/16 23:34 Room Air 10/31/16 23:34 97.6 87 16 171/81 (111) 99 10/31/16 21:20 170/82 (111) 10/31/16 21:12 99 21 10/31/16 20:14 89 10/31/16 19:33 97.9 88 16 181/84 (116) 100 10/31/16 19:33 Room Air 10/31/16 17:30 97.5 84 18 170/81 (110) 98 10/31/16 12:19 98.1 89 18 161/86 (111) 97 (Lizy Pineda) -: 11/01/16 0725 Imaging Last Impressions Liver Ultrasound 10/23/16 0000 Signed Impressions: Service Date/Time: Sunday, October 23, 2016 09:45 - CONCLUSION: 1. Gallbladder sludge 2. No evidence of biliary duct dilatation 3. Otherwise unremarkable exam. Jaiden Weston MD Head CT 10/19/16 1700 Signed Impressions: Service Date/Time: October 17:01 - CONCLUSION: No acute intracranial findings Ricco Kulkarni MD Head Magnetic Resonance Angiography 10/18/16 Signed Impressions: Service Date/Time: Tuesday, October 18, 2016 16:23 - CONCLUSION: Normal examination. Ricco Kulkarni MD Chest X-Ray 10/18/16 Signed Impressions: Service Date/Time: Tuesday, October 18, 2016 14:59 - CONCLUSION: 1. Mild to moderate pulmonary vascular congestion. 2. Cardiomegaly. 3. Elevation of the right hemidiaphragm. 4. Endotracheal tube in good position 3 cm above the elsie. 5. Left internal jugular VasCath and left subclavian central line are stable in positions. Raymond Smith MD Brain MRI 10/18/16 Signed Impressions: Service Date/Time: Tuesday, October 18, 2016 16:11 - CONCLUSION: Nonspecific white matter signal change in the left frontal region. No evidence of acute stroke. Ricco Kulkarni MD Ankle X-Ray 10/14/16 Signed Impressions: Service Date/Time: Friday, October 14, 2016 17:01 - CONCLUSION: Marked soft tissue swelling with subcutaneous calcifications. Negative for fracture. Roman Montiel MD FACR Upper Extremity Ultrasound 10/13/16 Signed Impressions: Service Date/Time: Thursday, October 13, 2016 09:17 - CONCLUSION: 1. No DVT. 2. Subcutaneous edema observed. Wilner Potter Jr., MD Lower Extremity Ultrasound 10/13/16 Signed Impressions: Service Date/Time: Thursday, October 13, 2016 08:57 - CONCLUSION: 1. Study has some limitations as detailed above. No DVT observed. Wilner Potter Jr., MD Lower Extremity CT 10/13/16 Signed Impressions: Service Date/Time: Thursday, October 13, 2016 21:35 - CONCLUSION: Ulcer at the region of the base of the fifth metatarsal. There appears to be chronic and acute changes in this region. The acute changes are worrisome for osteomyelitis at the base of the fifth metatarsal. Ricco Fuentes MD Chest CT 10/13/16 Signed Impressions: Service Date/Time: Thursday, October 13, 2016 21:27 - CONCLUSION: 1. Patchy areas of consolidation seen bilaterally being worse on the right. These could represent areas of inflammatory/infectious disease. Focal round lesions to suggest septic emboli are not clearly identified. 2. Edema seen at the right superficial chest and abdomen regions. The cause of for this asymmetric edema is not known. 3. Mild ascites. Ricco Fuentes MD Abdomen CT 10/13/16 0000 Signed Impressions: Service Date/Time: Thursday, October 13, 2016 21:27 - CONCLUSION: 1. Mild ascites seen around the liver. 2. Superficial edema seen bilaterally in the subcutaneous tissues. This is asymmetric and being much more prominent on the right. 3. Small area of increased density seen independently in the gallbladder representing either small gallstones or milk of calcium. Ricco Fuentes MD Renal Ultrasound 10/12/16 0000 Signed Impressions: Service Date/Time: September 20:54 - CONCLUSION: Normal appearance of the kidneys. Ricco Fuentes MD Tubes & Lines: Vas-Cath, Black (Lizy Pineda) Physical Exam General Appearance: Well Developed, No Acute Distress, Comfortable, Obese (Lizy Pineda [employer]) Eyes Eye Exam: Pupils Equal (Lizy Pineda BOtis PEREAP) Throat Throat Exam: Oral Mucosa [place] & Moist (Lizy Pineda [employer]) Neck Neck Exam: Neck Supple (Lizy Pineda [employer]) Pulmonary Resp Exam: Breath Sounds Equal, No Distress, Rhonchi, Decreased Bases (Lizy Pineda [employer]) Cardiology CV Exam: Regular, Normal Sinus Rhythm, Good Perfusion (Lizy Pineda [employer]) Gastrointestinal/Abdomen GI Exam: Soft, Non-Tender, Bowel Sounds Present (Lizy Pineda [employer]) Musculoskeletal MS Exam: Joints Intact, Normal Tone, Unable to Ambulate (Lizy Pineda [employer]) Integumentary Skin Exam: Warm, Dry, Intact Skin Remarks left foot ulcer skin is scaly (Lizy PinedaP) Extremeties Extremities Exam: Pedal Pulses Palpable, Pitting Edema (Lizy Pineda BOtis PEREAP) Neurologic Neuro Exam: Alert, Awake, Oriented, Speech Clear, Moving All Extremities (Lizy Pineda) Psychiatric Psych Exam: Appropriate Responses (Lizy Pineda) Assessment/Plan Discussed Condition With: Patient Assessment Summary: FREDI/Acute Renal Failure Problem List: (1) Acute renal failure ICD Codes: N17.9 - Acute kidney failure, unspecified Status: Acute Plan: She apparently has a baseline creatinine of 1mg/dL FREDI from ATN, secondary vancomycin induced nephrotoxicity, allergic interstitial nephritis. may also be due to sepsis HD initiated on 10/13/16, has been dialysis dependent on TTS HD schedule 2L UF yesterday with HD Monitor urine output. The black has been removed. repeat labs in AM ; most likely will hold dialysis tomorrow depending on her lab results Avoid nephrotoxic agents. (2) Sepsis ICD Codes: A41.9 - Sepsis, unspecified organism Plan: + Pseudomonas in the blood, and gram stain of the wound. Currently on Cefepime (x 6 weeks) D/W ID, Midline placement okay (3) Metabolic acidosis ICD Codes: E87.2 - Acidosis Status: Acute Plan: Corrected, monitor (4) Anemia ICD Codes: D64.9 - Anemia Status: Acute Plan: Hb improved, monitor (5) Vitamin D deficiency ICD Codes: E55.9 - Vitamin D deficiency, unspecified Plan: replacement ordered (6) Itching ICD Codes: L29.9 - Pruritus, unspecified Plan: stop Benadryl start Vistaril PRN with daily Claritin (Lizy Pineda) Plan patient was seen and examined. Agree with above assessment and plan. Repeat labs , dialysis as needed. Avoid nephrotoxic agents. (Francisco Javier Quiros MD) Problem Qualifiers (1) Acute renal failure: Qualified Codes: N17.9 - Acute kidney failure, unspecified (2) Anemia: Qualified Codes: D64.9 - Anemia, unspecified Lizy Pineda Nov 01, 2016 11:24 Francisco Javier Quiros MD Nov 03, 2016 14:34
--- NOTE | 2016-11-01 11:58 | HHI.PR ---
Subjective Remarks in no acute distress. afebrile. has some itching. no new complaints. Objective Vitals Vital Signs Date Time Temp Pulse Resp B/P (MAP) Pulse Ox O2 Delivery O2 Flow Rate FiO2 11/01/16 08:00 98.2 89 18 172/80 (110) 97 11/01/16 07:57 98 11/01/16 05:47 Room Air 11/01/16 05:47 97.4 90 16 195/88 (123) 97 162/78 (106) 11/01/16 01:30 158/86 (110) 10/31/16 23:34 Room Air 10/31/16 23:34 97.6 87 16 171/81 (111) 99 10/31/16 21:20 170/82 (111) 10/31/16 21:12 99 21 10/31/16 20:14 89 10/31/16 19:33 97.9 88 16 181/84 (116) 100 10/31/16 19:33 Room Air 10/31/16 17:30 97.5 84 18 170/81 (110) 98 10/31/16 12:19 98.1 89 18 161/86 (111) 97 I/O 10/31/16 10/31/16 10/31/16 11/01/16 11/01/16 11/01/16 07:00 15:00 23:00 07:00 15:00 23:00 Intake Total 640 ml 240 ml Output Total 500 ml 100 ml 2000 ml 0 ml Balance 140 ml -100 ml -2000 ml 240 ml Intake Oral 640 ml 240 ml Output Urine Total 500 ml 100 ml 0 ml Hemodialysis 2000 ml Bladder Scan Volume Amount 0 ml 111 ml 0 ml 111 ml # Bowel Movements 1 1 0 Result Diagram: 11/01/16 0725 Imaging Last Impressions Liver Ultrasound 10/23/16 0000 Signed Impressions: Service Date/Time: Sunday, October 23, 2016 09:45 - CONCLUSION: 1. Gallbladder sludge 2. No evidence of biliary duct dilatation 3. Otherwise unremarkable exam. Jaiden Weston MD Head CT 10/19/16 1700 Signed Impressions: Service Date/Time: October 17:01 - CONCLUSION: No acute intracranial findings Ricco Kulkarni MD Head Magnetic Resonance Angiography 10/18/16 0000 Signed Impressions: Service Date/Time: Tuesday, October 18, 2016 16:23 - CONCLUSION: Normal examination. Ricco Kulkarni MD Chest X-Ray 10/18/16 Signed Impressions: Service Date/Time: Tuesday, October 18, 2016 14:59 - CONCLUSION: 1. Mild to moderate pulmonary vascular congestion. 2. Cardiomegaly. 3. Elevation of the right hemidiaphragm. 4. Endotracheal tube in good position 3 cm above the elsie. 5. Left internal jugular VasCath and left subclavian central line are stable in positions. Raymond Smith MD Brain MRI 10/18/16 Signed Impressions: Service Date/Time: Tuesday, October 18, 2016 16:11 - CONCLUSION: Nonspecific white matter signal change in the left frontal region. No evidence of acute stroke. Ricco Kulkarni MD Ankle X-Ray 10/14/16 Signed Impressions: Service Date/Time: Friday, October 14, 2016 17:01 - CONCLUSION: Marked soft tissue swelling with subcutaneous calcifications. Negative for fracture. Roman Montiel MD FACR Upper Extremity Ultrasound 10/13/16 Signed Impressions: Service Date/Time: Thursday, October 13, 2016 09:17 - CONCLUSION: 1. No DVT. 2. Subcutaneous edema observed. Wilner Potter Jr., MD Lower Extremity Ultrasound 10/13/16 Signed Impressions: Service Date/Time: Thursday, October 13, 2016 08:57 - CONCLUSION: 1. Study has some limitations as detailed above. No DVT observed. Wilner Potter Jr., MD Lower Extremity CT 10/13/16 Signed Impressions: Service Date/Time: Thursday, October 13, 2016 21:35 - CONCLUSION: Ulcer at the region of the base of the fifth metatarsal. There appears to be chronic and acute changes in this region. The acute changes are worrisome for osteomyelitis at the base of the fifth metatarsal. Ricco Fuentes MD Chest CT 10/13/16 Signed Impressions: Service Date/Time: Thursday, October 13, 2016 21:27 - CONCLUSION: 1. Patchy areas of consolidation seen bilaterally being worse on the right. These could represent areas of inflammatory/infectious disease. Focal round lesions to suggest septic emboli are not clearly identified. 2. Edema seen at the right superficial chest and abdomen regions. The cause of for this asymmetric edema is not known. 3. Mild ascites. Ricco Fuentes MD Abdomen CT 10/13/16 0000 Signed Impressions: Service Date/Time: Thursday, October 13, 2016 21:27 - CONCLUSION: 1. Mild ascites seen around the liver. 2. Superficial edema seen bilaterally in the subcutaneous tissues. This is asymmetric and being much more prominent on the right. 3. Small area of increased density seen independently in the gallbladder representing either small gallstones or milk of calcium. Ricco Fuentes MD Renal Ultrasound 10/12/16 0000 Signed Impressions: Service Date/Time: September 20:54 - CONCLUSION: Normal appearance of the kidneys. Ricco Fuentes MD Objective Remarks GENERAL: This is a well-nourished, well-developed patient, in no apparent distress. CARDIOVASCULAR: Regular rate and regular rhythm without murmurs, gallops, or rubs. RESPIRATORY: Clear to auscultation. Breath sounds equal bilaterally. No wheezes , rales, or rhonchi. GASTROINTESTINAL: Abdomen soft, non-tender, nondistended. Normal, active bowel sounds MUSCULOSKELETAL: Extremities without clubbing, cyanosis, or edema. NEURO: Alert & Oriented x4 to person, place, time, situation. Moves all ext x4 Medications and IVs Current Medications Sodium Chloride 1,000 ml @ 999 mls/hr BOLUS ONCE IV Last administered on 10/12 18:59; Start 10/12/16 at 18:15; Stop 10/12/16 at 19:15; Status DC Sodium Bicarbonate 150 meq/Sterile Water 1,000 ml @ 100 mls/hr Q10H IV Last administered on 10/12/16 23:39; Start 10/12/16 at 20:15; Stop 10/13/16 at 05:52 ; Status DC Sodium Chloride (NS Flush) 2 ml UNSCH PRN IV FLUSH FLUSH AFTER USING IV ACCESS ; Start 10/12/16 at 20:15 Sodium Chloride (NS Flush) 2 ml BID IV FLUSH Last administered on 11/01/16 09: 30; Start 10/12/16 at 21:00 Heparin Sodium (Porcine) (Heparin Inj) 5,000 units Q8H SQ Last administered on 10/18/16 12:42; Start 10/13/16 at 06:00; Stop 10/18/16 at 15:57; Status DC Naloxone HCl (Narcan Inj) 0.4 mg UNSCH PRN IV SEE LABEL COMMENTS; Start at 20:15 Calcium Gluconate (Calcium Gluconate Inj) 1 gm ONCE ONCE IV PUSH ; Start at 20:15; Stop 10/12/16 at 21:51; Status DC Insulin Human Regular (NovoLIN R INJ) 10 units ONCE ONCE IV PUSH Last administered on 10/12/16 23:54; Start 10/12/16 at 20:15; Stop 10/12/16 at 21:53 ; Status DC Dextrose (D50w (Syr) Inj) 50 ml ONCE ONCE IV PUSH Last administered on 23:53; Start 10/12/16 at 20:15; Stop 10/12/16 at 21:52; Status DC Sodium Polystyrene Sulfonate (Kayexalate Liq) 30 gm ONCE ONCE PO Last administered on 10/12/16 23:40; Start 10/12/16 at 20:15; Stop 10/12/16 at 21:54 ; Status DC Dextrose (D50w (Vial) Inj) 50 ml UNSCH PRN IV HYPOGLYCEMIA-SEE COMMENTS; Start 10/12/16 at 20:15; Stop 10/13/16 at 07:33; Status DC Glucagon (Glucagon Inj) 1 mg UNSCH PRN OTHER HYPOGLYCEMIA-SEE COMMENTS; Start 10/12/16 at 20:15 Insulin Aspart (NovoLOG SUPPLEMENTAL SCALE) 1 ACHS SLIDING SCALE SQ ; Start at 21:00; Stop 10/13/16 at 07:30; Status DC Calcium Gluconate 1 gm/Sodium Chloride 110 ml @ 110 mls/hr ONCE ONCE IV Last administered on 10/12/16 23:54; Start 10/12/16 at 23:00; Stop 10/12/16 at 23:59 ; Status DC Ipratropium [place] (Atrovent Neb) 0.5 mg Q6HR NEB NEB Last administered on 07:55; Start 10/13/16 at 04:00 Ipratropium [place] (Atrovent Neb) 0.5 mg Q2HR NEB PRN NEB wheezing; Start 10/13 at 00:45 Amitriptyline HCl (Elavil) 50 mg HS PO ; Start 10/13/16 at 21:00; Stop 10/13/16 at 21:00; Status DC Hydralazine HCl (Apresoline) 100 mg TID PO ; Start 10/13/16 at 09:00; Stop at 09:00; Status DC Insulin Detemir (Levemir Inj) 20 units AC BREAKFAST SQ ; Start 10/13/16 at 07:00 ; Stop 10/13/16 at 07:00; Status DC Insulin Detemir (Levemir Inj) 25 units HS SQ ; Start 10/13/16 at 21:00; Stop 10/13 at 21:00; Status DC Labetalol HCl (Trandate) 200 mg TID PO ; Start 10/13/16 at 09:00; Stop 10/13/16 at 09:00; Status DC Lactobacillus Acidophilus (Lactinex) 1 tab TIDAC PO Last administered on t 08:00; Start 10/13/16 at 08:00 Loratadine (Claritin) 10 mg DAILY PO ; Start 10/13/16 at 09:00; Stop 10/13/16 at 09:00; Status DC Montelukast Sodium (Singulair) 10 mg HS PO ; Start 10/13/16 at 21:00; Stop at 21:00; Status DC Nifedipine (Procardia Xl) 60 mg TID PO ; Start 10/13/16 at 09:00; Stop 10/13/16 at 09:00; Status DC Pravastatin Sodium (Pravachol) 40 mg DAILY PO ; Start 10/13/16 at 09:00; Stop 10/13/16 at 09:00; Status DC Sodium Chloride 1,000 ml @ 999 mls/hr BOLUS ONCE IV Last administered on t 05:42; Start 10/13/16 at 04:45; Stop 10/13/16 at 05:45; Status DC Sodium Bicarbonate 150 meq/Dextrose 1,150 ml @ 75 mls/hr [id number] IV ; Start 10/13/16 at 08:00; Stop 10/13/16 at 08:00; Status DC Norepinephrine Bitartrate 250 ml @ As Directed STK-MED ONCE IV ; Start 10/13/16 at 07:25; Stop 10/13/16 at 07:26; Status DC Norepinephrine Bitartrate 250 ml @ 7.5 mls/hr TITRATE PRN IV Blood pressure management; Start 10/13/16 at 07:30; Status UNV Terbutaline Sulfate (Brethine Inj) 1 mg UNSCH PRN SQ For Extravasation; Start 10/13/16 at 07:30; Stop 10/28/16 at 11:24; Status DC Sodium Bicarbonate (Sodium Bicarbonate 8.4% Inj) 200 meq ONCE ONCE IV PUSH Last administered on 10/13/16 07:30; Start 10/13/16 at 07:30; Stop 10/13/16 at 07: 35; Status DC Dextrose (D50w (Vial) Inj) 25 ml UNSCH PRN IV PUSH HYPOGLYCEMIA-SEE COMMENTS; Start 10/13/16 at 07:30 Insulin Human Regular (NovoLIN R SUPPLEMENTAL SCALE) 1 Q6HR SQ Last administered on 10/26/16 12:00; Start 10/13/16 at 12:00 Linezolid 300 ml @ 300 mls/hr Q12H IV ; Start 10/13/16 at 08:00; Stop 10/13/16 at 08:07; Status DC Piperacillin Sod/ Tazobactam Sod 50 ml @ 100 mls/hr Q8H IV Last administered on 10/13/16 09:07; Start 10/13/16 at 09:00; Stop 10/13/16 at 14:13; Status DC Norepinephrine Bitartrate 16 mg/ Dextrose 250 ml @ 1.87 mls/hr TITRATE PRN IV Maintain MAP > 65 mmHg; Start 10/13/16 at 08:00; Stop 10/28/16 at 11:24; Status DC Epinephrine HCl 2 mg/Dextrose 252 ml @ 15.12 mls/ hr TITRATE PRN IV Blood Pressure Management; Start 10/13/16 at 08:15; Stop 10/13/16 at 08:47; Status DC Ketamine HCl (Ketalar Inj) 50 mg STAT ONCE IV PUSH ; Start 10/13/16 at 08:15; Stop 10/13/16 at 08:33; Status DC Midazolam HCl (Versed Inj) 2 mg STAT ONCE IV PUSH ; Start 10/13/16 at 08:15; Stop 10/13/16 at 08:31; Status DC Clindamycin Phosphate 900 mg/ Sodium Chloride 106 ml @ 212 mls/hr Q8H IV Last administered on 10/13/16 09:07; Start 10/13/16 at 09:00; Stop 10/13/16 at 13:55; Status DC Epinephrine HCl 8 mg/Dextrose 250 ml @ 5.62 mls/hr TITRATE PRN IV Blood Pressure Management Last administered on 10/13/16 09:07; Start 10/13/16 at 09:00 ; Stop 10/28/16 at 11:24; Status DC Sodium Bicarbonate (Sodium Bicarbonate 8.4% Inj) 200 meq ONCE ONCE IV PUSH Last administered on 10/13/16 11:43; Start 10/13/16 at 11:30; Stop 10/13/16 at 11: 31; Status DC Etomidate (Amidate Inj) 20 mg ONCE ONCE IV PUSH ; Start 10/13/16 at 13:15; Stop 10/13/16 at 14:37; Status DC Midazolam HCl (Versed Inj) 5 mg ONCE ONCE IV PUSH Last administered on 13:15; Start 10/13/16 at 13:15; Stop 10/13/16 at 14:37; Status DC Rocuronium [place] (Zemuron Inj) 100 mg BOLUS ONCE IV Last administered on 10/13 13:15; Start 10/13/16 at 13:15; Stop 10/13/16 at 14:37; Status DC Midazolam HCl (Versed Inj) 5 mg STK-MED ONCE .ROUTE Last administered on 13:20; Start 10/13/16 at 13:20; Stop 10/13/16 at 13:21; Status DC Micafungin Sodium 150 mg/Sodium Chloride 100 ml @ 100 mls/hr Q24H IV Last administered on 10/16/16 16:12; Start 10/13/16 at 17:00; Stop 10/16/16 at 17:40; Status DC Daptomycin 1000 mg/Sodium Chloride 100 ml @ 200 mls/hr Q48H IV Last administered on 10/27/16 16:58; Start 10/13/16 at 16:00; Stop 10/30/16 at 15:59 ; Status DC Cefepime HCl 1000 mg/Sodium Chloride 100 ml @ 200 mls/hr Q24H IV Last administered on 10/31/16 17:27; Start 10/13/16 at 15:00 Metronidazole 100 ml @ 100 mls/hr Q8H IV Last administered on 10/16/16 15:13; Start 10/13/16 at 16:00; Stop 10/16/16 at 17:40; Status DC Propofol 100 ml @ As Directed STK-MED ONCE .ROUTE ; Start 10/13/16 at 15:31; Stop 10/13/16 at 15:32; Status DC Sodium Chloride 1,000 ml @ 0 mls/hr Q0M PRN OTHER For Prime & Rinse Back Last administered on 10/21/16 10:43; Start 10/13/16 at 15:54 Heparin Sodium (Porcine) (Heparin Inj) 8,000 units UNSCH PRN IVF WITH DIALYSIS ; Start 10/13/16 at 16:00 Sodium Chloride 1,000 ml @ 200 mls/hr Q5H PRN IV WITH DIALYSIS Last administered on 10/28/16 17:35; Start 10/13/16 at 15:54 Sodium Chloride 1,000 ml @ 0 mls/hr Q0M PRN OTHER WITH DIALYSIS; Start 10/13/16 at 15:54 Mannitol (Mannitol Inj) 12.5 gm UNSCH PRN IV WITH DIALYSIS; Start 10/13/16 at 16 :00 Albumin Human (Albumin 25% Inj) 25 gm UNSCH PRN IV WITH DIALYSIS Last administered on 10/14/16 08:19; Start 10/13/16 at 16:00 Sodium Chloride (NS Flush) 5 ml UNSCH PRN IV FLUSH WITH DIALYSIS Last administered on 10/21/16 10:42; Start 10/13/16 at 16:00 Heparin Sodium (Porcine) (Heparin Inj) UNSCH PRN .XX WITH DIALYSIS Last administered on 10/28/16 17:35; Start 10/13/16 at 16:00 Gentamicin Sulfate (Gentamicin (Dialysis) Inj) 20 mg UNSCH PRN IV WITH DIALYSIS Last administered on 10/28/16 17:36; Start 10/13/16 at 16:00 Ondansetron HCl (Zofran Inj) 4 mg UNSCH PRN IV WITH DIALYSIS; Start 10/13/16 at 16:00 Acetaminophen (Tylenol) 650 mg UNSCH PRN PO for headach, pain, temp > 101F Last administered on 10/21/16 20:36; Start 10/13/16 at 16:00 Diphenhydramine HCl (Benadryl) 25 mg UNSCH PRN PO for hives/itching/ anaphylaxis Last administered on 10/28/16 06:35; Start 10/13/16 at 16:00; Stop 11/01/16 at 11:23; Status DC Nitroglycerin (Nitrostat Sl) 0.4 mg UNSCH PRN SL CHEST PAIN; Start 10/13/16 at 16:00 Clonidine (Catapres) 0.1 mg UNSCH PRN PO for BP > 180/100 X 2 readings Last administered on 10/29/16 16:52; Start 10/13/16 at 16:00; Stop 10/29/16 at 20:11 ; Status DC Gelatin (Gelfoam 12 Mm/7 Mm Top) 1 foam UNSCH PRN TOP SEE LABEL COMMENTS Last administered on 10/15/16 10:39; Start 10/13/16 at 16:00 Propofol 100 ml @ As Directed STK-MED ONCE .ROUTE ; Start 10/13/16 at 18:39; Stop 10/13/16 at 18:40; Status DC Propofol 100 ml @ 4.128 mls/ hr TITRATE PRN IV SEDATION Last administered on 13:36; Start 10/13/16 at 19:15; Stop 10/28/16 at 11:24; Status DC Famotidine (Pepcid Liq) 20 mg BID NG Last administered on 10/15/16 09:19; Start 10/14/16 at 21:00; Stop 10/15/16 at 10:04; Status DC Silver Nitrate/ Potassium Nitrate (Silver Nitrate Applicators) 1 appl UNSCH X1 ONCE TOPICAL Last administered on 10/15/16 09:19; Start 10/15/16 at 09:00; Stop 10/15/16 at 09:01; Status DC Famotidine (Pepcid Liq) 10 mg BID NG Last administered on 10/21/16 09:00; Start 10/15/16 at 21:00; Stop 10/21/16 at 20:09; Status DC Diphenhydramine HCl (Benadryl) 25 mg BID PO Last administered on 10/17/16 08:55 ; Start 10/15/16 at 21:00; Stop 10/17/16 at 09:01; Status DC Dexamethasone Sodium Phosphate (Decadron Inj) 4 mg Q6HR IV PUSH Last administered on 10/16/16 17:57; Start 10/16/16 at 10:00; Stop 10/16/16 at 18:01; Status DC Hydralazine HCl (Apresoline Inj) 20 mg Q3H PRN IV PUSH SBP > 170 Last administered on 10/31/16 20:30; Start 10/16/16 at 15:45 Labetalol HCl (Trandate Inj) 20 mg Q3H PRN IV PUSH SBP > 160 Last administered on 10/21/16 22:05; Start 10/16/16 at 15:45 Atropine Sulfate (Atropine Inj) 1 mg STK-MED ONCE IV ; Start 10/13/16 at 05:00; Stop 10/17/16 at 11:07; Status DC Sodium Bicarbonate (Sodium Bicarbonate 8.4% Inj) 50 meq STK-MED ONCE IV ; Start 10/13/16 at 05:00; Stop 10/17/16 at 11:08; Status DC Sodium Chloride 250 ml @ 15 mls/hr ONCE ONCE IV ; Start 10/18/16 at 09:30; Stop 10/19/16 at 02:09; Status DC Epinephrine HCl (EPINEPHrine (1:10,000) INJ) 1 mg STK-MED ONCE .ROUTE ; Start at 14:51; Stop 10/18/16 at 14:52; Status DC Alteplase, Recombinant (Activase Bolus) 9 mg ONCE ONCE IV Last administered on 10/18/16 16:00; Start 10/18/16 at 16:00; Stop 10/18/16 at 16:03; Status DC Alteplase, Recombinant 81 mg/ Syringe / Bag 81 ml @ 81 mls/hr ONCE ONCE IV Last administered on 10/18/16 16:01; Start 10/18/16 at 16:00; Stop 10/18/16 at 16: 59; Status DC Sodium Chloride (NS Inj) 30 ml ONCE ONCE IVF Last administered on 10/18/16 16: 00; Start 10/18/16 at 16:00; Stop 10/18/16 at 16:02; Status DC Miscellaneous Information No Heparin, Warfarin, Aspir... UNSCH PRN XX SEE DOSE INSTRUCTIONS; Start 10/18/16 at 16:00; Stop 10/19/16 at 15:59; Status DC Micafungin Sodium 150 mg/Sodium Chloride 100 ml @ 100 mls/hr Q24H IV Last administered on 10/18/16 18:32; Start 10/18/16 at 18:00; Stop 10/19/16 at 14:43; Status DC Chlorhexidine Gluconate (Peridex 0.12% Liq) 15 ml BID@08,20 MT Last administered on 10/28/16 10:50; Start 10/18/16 at 20:00 Dexamethasone Sodium Phosphate (Decadron Inj) 4 mg STAT ONCE IV PUSH Last administered on 10/19/16 11:50; Start 10/19/16 at 11:15; Stop 10/19/16 at 11:16; Status DC Racepinephrine (Racepinephrine 2.25% Neb) 0.5 ml STK-MED ONCE .ROUTE ; Start 10/19/16 at 13:19; Stop 10/19/16 at 13:20; Status DC Diphenhydramine HCl (Benadryl) 25 mg Q6H PRN PO ITCHING Last administered on 11:57; Start 10/21/16 at 15:30; Stop 10/23/16 at 10:29; Status DC Famotidine (Pepcid) 10 mg BID PO Last administered on 11/01/16 09:28; Start at 21:00 Calamine (Calamine Lotion) 1 applic Q6H PRN TOPICAL irritated skin Last administered on 10/27/16 12:00; Start 10/21/16 at 22:30 Thiamine HCl (Vitamin B1) 100 mg DAILY PO Last administered on 11/01/16 09:00 ; Start 10/23/16 at 09:00 Diphenhydramine HCl (Benadryl) 50 mg Q6H PRN PO ITCHING Last administered on 05:33; Start 10/23/16 at 15:30; Stop 11/01/16 at 11:23; Status DC Senna/Docusate Sodium (Maira-Colace) 2 tab ONCE ONCE PO Last administered on 12:11; Start 10/23/16 at 10:30; Stop 10/23/16 at 11:05; Status DC Magnesium Hydroxide (Milk Of [place]) 30 ml ONCE ONCE PO Last administered on 10/23/16 12:11; Start 10/23/16 at 10:30; Stop 10/23/16 at 11:06 ; Status DC Senna/Docusate Sodium (Maira-Colace) 1 tab BID PO Last administered on 09:28; Start 10/23/16 at 21:00 Lactic Acid (Lac-Hydrin 12% Lotion) 1 applic BID TOPICAL Last administered on 09:28; Start 10/23/16 at 21:00 Cholecalciferol (Vitamin D3) 5,000 units DAILY PO Last administered on 09:28; Start 10/24/16 at 09:00 Cholecalciferol (Vitamin D3) 10,000 units ONCE ONCE PO Last administered on 18:06; Start 10/23/16 at 17:45; Stop 10/23/16 at 17:46; Status DC Senna/Docusate Sodium (Maira-Colace) 1 tab BID PO ; Start 10/24/16 at 21:00; Stop 10/24/16 at 21:00; Status DC Fluconazole (Diflucan) 100 mg Q48H PO Last administered on 10/30/16 18:01; Start 10/24/16 at 17:00; Stop 10/30/16 at 18:24; Status DC Hydralazine HCl (Apresoline) 25 mg Q12HR PO Last administered on 10/28/16 10: 48; Start 10/26/16 at 11:30; Stop 10/28/16 at 13:51; Status DC Diphenhydramine HCl (Benadryl 2% Cream) APPLY TO AFFECTED AREA Q4H PRN TOPICAL ITCHING; Start 10/27/16 at 17:30 Nifedipine (Procardia Xl) 30 mg ONCE ONCE PO Last administered on 10/28/16 18 :37; Start 10/28/16 at 14:30; Stop 10/28/16 at 14:31; Status DC Hydralazine HCl (Apresoline) 25 mg Q8H PO Last administered on 10/31/16 08:25 ; Start 10/28/16 at 16:00; Stop 10/31/16 at 10:30; Status DC Multi-Ingredient Ointment (Eucerin Cream) 1 applic Q6H PRN TOPICAL DRY SKIN Last administered on 10/30/16 13:50; Start 10/29/16 at 12:15 Nifedipine (Procardia Xl) 30 mg DAILY PO Last administered on 11/01/16 09:28; Start 10/29/16 at 12:15 Clonidine (Catapres) 0.1 mg Q8H PRN PO for BP > 180/100 X 2 readings Last administered on 10/29/16 21:45; Start 10/29/16 at 20:15 Metoprolol Tartrate (Lopressor) 25 mg DAILY PO Last administered on 11/01/16 09:28; Start 10/30/16 at 10:00 Potassium Chloride (KCl) 30 meq ONCE ONCE PO Last administered on 10/30/16 13 :40; Start 10/30/16 at 11:45; Stop 10/30/16 at 11:46; Status DC Potassium Chloride (KCl) 20 meq ONCE ONCE PO Last administered on 10/30/16 18 :01; Start 10/30/16 at 14:30; Stop 10/30/16 at 14:31; Status DC Hydralazine HCl (Apresoline) 50 mg Q8HR PO Last administered on 11/01/16 05:24 ; Start 10/31/16 at 14:00 Hydroxyzine HCl (Atarax) 25 mg Q6H PRN PO ITCHING; Start 11/01/16 at 11:30 Loratadine (Claritin) 10 mg DAILY PO ; Start 11/01/16 at 11:30 A/P Assessment and Plan A/P Suspected stroke alert with acute change in neurologic status 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 Patient was administered IV thrombolysis following evaluation by neurology Dr. Burton in view of concern for brain stem CVA while awaiting MRI brain on 10/18. Subsequently MRI/MRA brain unremarkable. - Urine tox screen came back positive for benzodiazepines placing concern for surreptitious benzodiazepine use as she does not have any benzodiazepine listed on her APR. non-sustained V-tach started on lopressor- echo with EF 60%. continue to monitor. Obesity Hypoventilation Syndrome COPD Sleep Apnea Acute hypoxic and hypercarbic respiratory failure- persistent, no improvement. Pulmonary Edema - intubated and then extubated 10/16. -Emergently intubated on 10/18 for airway protection due to altered mental status. Extubated on 10/19- now stable. Septic Shock- resolving. pseudomonas bacteremia Severe Tricuspid Regurgitation IV antibiotics per ID recommendations; on Cefepime. Acute kidney injury requiring renal replacement therapy - nephrology following - HD per nephrology. -- Strict IOs Severe metabolic acidosis- resolved Hyperkalemia- resolved. Morbid Obesity Advance by mouth diet Chronic anemia- likely secondary to chronic disease Septic Shock LLE osteomyelitis Pseudomonas bacteremia Gram Positive Bacteremia Pseudomonas osteomyelitis Fungal Urinary Tract Infection -Recommend transfusions of PRBCs to keep hemoglobin above 7 g percent. - ID following. - continue antibiotics per ID. Diabetes -Vitamin D deficiency. -- Patient had low vitamin D and was started on cholecalciferol. -- continue accu-check with sliding scale. hypertension-uncontrolled increase Procardia XL and continue metoprolol and hydralazine continue to monitor and adjust the regimen as needed. GI Prophylaxis pepcid DVT Prophylaxis -- SCDs Sub-cutaneous heparin Discharge Planning when cleared by ID and nephrology. Roseanna Murphy MD Nov 01, 2016 11:58
[2016-11-01] MEDS: LORATADINE 10 MG TAB PO SCH (12:38)
[2016-11-01] MEDS: LABETALOL HCL 100 MG/20 ML VIAL IV PUSH PRN (12:39)
[2016-11-01] MEDS: CEFEPIME INJ 1,000 MG in SODIUM CHLORIDE 0.9% INJ 100 ML IV SCH (15:00)
[2016-11-02] VITALS (10 sets, daily range): BP systolic 160–182; BP diastolic 72–98; PULSE 68–105; RESP 19–22; TEMP 97.6–98.9; O2SAT 96–99
[2016-11-02] MEDS: RESP: IPRATROPIUM 0.5 MG/2.5 ML NEB NEB SCH ×4 (02:44→20:53)
[2016-11-02] MEDS: hydrALAZINE HCL 50 MG TAB PO SCH (05:12)
[2016-11-02] MEDS: INSULIN NovoLIN REGULAR SUPPLEMENTAL SCALE SQ SCH ×3 (05:15→11:54)
[2016-11-02] MEDS: hydrALAZINE HCL 20 MG/ML VIAL IV PUSH PRN (05:18)
[2016-11-02] MEDS: LACTIC ACID (AMMONIUM LACTATE) 12% LOTION 225 GM BTL TOPICAL SCH ×2 (09:00→21:00)
[2016-11-02] MEDS: CHOLECALCIFEROL (VIT D3) 5000 UNIT CAP PO SCH (09:00)
[2016-11-02 09:11] LABS: BICARBONATE 24.6 MEQ/L (21.0-32.0)
[2016-11-02] MEDS: FAMOTIDINE 20 MG TAB PO SCH ×2 (09:25→21:42)
[2016-11-02] MEDS: LORATADINE 10 MG TAB PO SCH (09:25)
[2016-11-02] MEDS: LACTOBACILLUS ACIDOPHILUS TAB PO SCH ×2 (09:25→11:56)
[2016-11-02] MEDS: NIFEdipine 60 MG SUSTAINED RELEASE TAB PO SCH (09:25)
[2016-11-02] MEDS: DOCUSATE SODIUM 50 MG/SENNA 8.6 MG TAB PO SCH ×3 (09:25→21:42)
[2016-11-02] MEDS: METOPROLOL TARTRATE 25 MG TAB PO SCH (09:25)
[2016-11-02] MEDS: THIAMINE HCL 100 MG TAB PO SCH (09:26)
[2016-11-02] MEDS: SODIUM CHLORIDE 0.9% FLUSH 10 ML FLUSH IV FLUSH SCH ×2 (09:26→21:00)
--- NOTE | 2016-11-02 11:06 | HHI.PR ---
Subjective Remarks resting comfortably with no distress. other than some itching no other complaints. no fever. Objective Vitals Vital Signs Date Time Temp Pulse Resp B/P (MAP) Pulse Ox O2 Delivery O2 Flow Rate FiO2 11/02/16 08:00 97.6 93 20 170/81 (110) 99 11/02/16 06:25 105 11/02/16 04:00 98.4 94 22 182/98 (126) 99 11/02/16 02:47 96 11/02/16 00:45 160/78 (105) 11/02/16 00:00 97.7 89 19 172/81 (111) 96 11/01/16 21:45 Room Air 11/01/16 20:00 97.6 90 21 172/87 (115) 98 11/01/16 16:00 98.7 82 20 194/94 (127) 100 11/01/16 15:40 86 11/01/16 15:08 95 21 11/01/16 15:00 Room Air 11/01/16 15:00 Room Air 11/01/16 12:00 98.8 90 18 200/100 (133) 95 11/01/16 11:00 Room Air I/O 11/01/16 11/01/16 11/01/16 11/02/16 11/02/16 11/02/16 07:00 15:00 23:00 07:00 15:00 23:00 Intake Total 240 ml 570 ml 180 ml Output Total 0 ml 0 ml Balance 240 ml 570 ml 180 ml Intake Oral 240 ml 570 ml 180 ml Output Urine Total 0 ml 0 ml Bladder Scan Volume Amount 111 ml 111 ml # Voids 2 0 # Bowel Movements 0 0 0 Result Diagram: 11/02/16 0644 Imaging Last Impressions Liver Ultrasound 10/23/16 0000 Signed Impressions: Service Date/Time: Sunday, October 23, 2016 09:45 - CONCLUSION: 1. Gallbladder sludge 2. No evidence of biliary duct dilatation 3. Otherwise unremarkable exam. Jaiden Weston MD Head CT 10/19/16 1700 Signed Impressions: Service Date/Time: October 17:01 - CONCLUSION: No acute intracranial findings Ricco Kulkarni MD Head Magnetic Resonance Angiography 10/18/16 0000 Signed Impressions: Service Date/Time: Tuesday, October 18, 2016 16:23 - CONCLUSION: Normal examination. Ricco Kulkarni MD Chest X-Ray 10/18/16 Signed Impressions: Service Date/Time: Tuesday, October 18, 2016 14:59 - CONCLUSION: 1. Mild to moderate pulmonary vascular congestion. 2. Cardiomegaly. 3. Elevation of the right hemidiaphragm. 4. Endotracheal tube in good position 3 cm above the elsie. 5. Left internal jugular VasCath and left subclavian central line are stable in positions. Raymond Smith MD Brain MRI 10/18/16 Signed Impressions: Service Date/Time: Tuesday, October 18, 2016 16:11 - CONCLUSION: Nonspecific white matter signal change in the left frontal region. No evidence of acute stroke. Ricco Kulkarni MD Ankle X-Ray 10/14/16 Signed Impressions: Service Date/Time: Friday, October 14, 2016 17:01 - CONCLUSION: Marked soft tissue swelling with subcutaneous calcifications. Negative for fracture. Roman Montiel MD FACR Upper Extremity Ultrasound 10/13/16 Signed Impressions: Service Date/Time: Thursday, October 13, 2016 09:17 - CONCLUSION: 1. No DVT. 2. Subcutaneous edema observed. Wilner Potter Jr., MD Lower Extremity Ultrasound 10/13/16 Signed Impressions: Service Date/Time: Thursday, October 13, 2016 08:57 - CONCLUSION: 1. Study has some limitations as detailed above. No DVT observed. Wilner Potter Jr., MD Lower Extremity CT 10/13/16 Signed Impressions: Service Date/Time: Thursday, October 13, 2016 21:35 - CONCLUSION: Ulcer at the region of the base of the fifth metatarsal. There appears to be chronic and acute changes in this region. The acute changes are worrisome for osteomyelitis at the base of the fifth metatarsal. Ricco Fuentes MD Chest CT 10/13/16 Signed Impressions: Service Date/Time: Thursday, October 13, 2016 21:27 - CONCLUSION: 1. Patchy areas of consolidation seen bilaterally being worse on the right. These could represent areas of inflammatory/infectious disease. Focal round lesions to suggest septic emboli are not clearly identified. 2. Edema seen at the right superficial chest and abdomen regions. The cause of for this asymmetric edema is not known. 3. Mild ascites. Ricco Fuentes MD Abdomen CT 10/13/16 0000 Signed Impressions: Service Date/Time: Thursday, October 13, 2016 21:27 - CONCLUSION: 1. Mild ascites seen around the liver. 2. Superficial edema seen bilaterally in the subcutaneous tissues. This is asymmetric and being much more prominent on the right. 3. Small area of increased density seen independently in the gallbladder representing either small gallstones or milk of calcium. Ricco Fuentes MD Renal Ultrasound 10/12/16 0000 Signed Impressions: Service Date/Time: September 20:54 - CONCLUSION: Normal appearance of the kidneys. Ricco Fuentes MD Objective Remarks GENERAL: This is a well-nourished, well-developed patient, in no apparent distress. CARDIOVASCULAR: Regular rate and regular rhythm without murmurs, gallops, or rubs. RESPIRATORY: Clear to auscultation. Breath sounds equal bilaterally. No wheezes , rales, or rhonchi. GASTROINTESTINAL: Abdomen soft, non-tender, nondistended. Normal, active bowel sounds MUSCULOSKELETAL: Extremities without clubbing, cyanosis, or edema. NEURO: Alert & Oriented x4 to person, place, time, situation. Moves all ext x4 Medications and IVs Current Medications Sodium Chloride 1,000 ml @ 999 mls/hr BOLUS ONCE IV Last administered on 10/12 18:59; Start 10/12/16 at 18:15; Stop 10/12/16 at 19:15; Status DC Sodium Bicarbonate 150 meq/Sterile Water 1,000 ml @ 100 mls/hr Q10H IV Last administered on 10/12/16 23:39; Start 10/12/16 at 20:15; Stop 10/13/16 at 05:52 ; Status DC Sodium Chloride (NS Flush) 2 ml UNSCH PRN IV FLUSH FLUSH AFTER USING IV ACCESS ; Start 10/12/16 at 20:15 Sodium Chloride (NS Flush) 2 ml BID IV FLUSH Last administered on 11/02/16 09: 26; Start 10/12/16 at 21:00 Heparin Sodium (Porcine) (Heparin Inj) 5,000 units Q8H SQ Last administered on 10/18/16 12:42; Start 10/13/16 at 06:00; Stop 10/18/16 at 15:57; Status DC Naloxone HCl (Narcan Inj) 0.4 mg UNSCH PRN IV SEE LABEL COMMENTS; Start at 20:15 Calcium Gluconate (Calcium Gluconate Inj) 1 gm ONCE ONCE IV PUSH ; Start at 20:15; Stop 10/12/16 at 21:51; Status DC Insulin Human Regular (NovoLIN R INJ) 10 units ONCE ONCE IV PUSH Last administered on 10/12/16 23:54; Start 10/12/16 at 20:15; Stop 10/12/16 at 21:53 ; Status DC Dextrose (D50w (Syr) Inj) 50 ml ONCE ONCE IV PUSH Last administered on 23:53; Start 10/12/16 at 20:15; Stop 10/12/16 at 21:52; Status DC Sodium Polystyrene Sulfonate (Kayexalate Liq) 30 gm ONCE ONCE PO Last administered on 10/12/16 23:40; Start 10/12/16 at 20:15; Stop 10/12/16 at 21:54 ; Status DC Dextrose (D50w (Vial) Inj) 50 ml UNSCH PRN IV HYPOGLYCEMIA-SEE COMMENTS; Start 10/12/16 at 20:15; Stop 10/13/16 at 07:33; Status DC Glucagon (Glucagon Inj) 1 mg UNSCH PRN OTHER HYPOGLYCEMIA-SEE COMMENTS; Start 10/12/16 at 20:15 Insulin Aspart (NovoLOG SUPPLEMENTAL SCALE) 1 ACHS SLIDING SCALE SQ ; Start at 21:00; Stop 10/13/16 at 07:30; Status DC Calcium Gluconate 1 gm/Sodium Chloride 110 ml @ 110 mls/hr ONCE ONCE IV Last administered on 10/12/16 23:54; Start 10/12/16 at 23:00; Stop 10/12/16 at 23:59 ; Status DC Ipratropium [place] (Atrovent Neb) 0.5 mg Q6HR NEB NEB Last administered on 07:33; Start 10/13/16 at 04:00 Ipratropium [place] (Atrovent Neb) 0.5 mg Q2HR NEB PRN NEB wheezing; Start 10/13 at 00:45 Amitriptyline HCl (Elavil) 50 mg HS PO ; Start 10/13/16 at 21:00; Stop 10/13/16 at 21:00; Status DC Hydralazine HCl (Apresoline) 100 mg TID PO ; Start 10/13/16 at 09:00; Stop at 09:00; Status DC Insulin Detemir (Levemir Inj) 20 units AC BREAKFAST SQ ; Start 10/13/16 at 07:00 ; Stop 10/13/16 at 07:00; Status DC Insulin Detemir (Levemir Inj) 25 units HS SQ ; Start 10/13/16 at 21:00; Stop 10/13 at 21:00; Status DC Labetalol HCl (Trandate) 200 mg TID PO ; Start 10/13/16 at 09:00; Stop 10/13/16 at 09:00; Status DC Lactobacillus Acidophilus (Lactinex) 1 tab TIDAC PO Last administered on t 09:25; Start 10/13/16 at 08:00 Loratadine (Claritin) 10 mg DAILY PO ; Start 10/13/16 at 09:00; Stop 10/13/16 at 09:00; Status DC Montelukast Sodium (Singulair) 10 mg HS PO ; Start 10/13/16 at 21:00; Stop at 21:00; Status DC Nifedipine (Procardia Xl) 60 mg TID PO ; Start 10/13/16 at 09:00; Stop 10/13/16 at 09:00; Status DC Pravastatin Sodium (Pravachol) 40 mg DAILY PO ; Start 10/13/16 at 09:00; Stop 10/13/16 at 09:00; Status DC Sodium Chloride 1,000 ml @ 999 mls/hr BOLUS ONCE IV Last administered on t 05:42; Start 10/13/16 at 04:45; Stop 10/13/16 at 05:45; Status DC Sodium Bicarbonate 150 meq/Dextrose 1,150 ml @ 75 mls/hr [id number] IV ; Start 10/13/16 at 08:00; Stop 10/13/16 at 08:00; Status DC Norepinephrine Bitartrate 250 ml @ As Directed STK-MED ONCE IV ; Start 10/13/16 at 07:25; Stop 10/13/16 at 07:26; Status DC Norepinephrine Bitartrate 250 ml @ 7.5 mls/hr TITRATE PRN IV Blood pressure management; Start 10/13/16 at 07:30; Status UNV Terbutaline Sulfate (Brethine Inj) 1 mg UNSCH PRN SQ For Extravasation; Start 10/13/16 at 07:30; Stop 10/28/16 at 11:24; Status DC Sodium Bicarbonate (Sodium Bicarbonate 8.4% Inj) 200 meq ONCE ONCE IV PUSH Last administered on 10/13/16 07:30; Start 10/13/16 at 07:30; Stop 10/13/16 at 07: 35; Status DC Dextrose (D50w (Vial) Inj) 25 ml UNSCH PRN IV PUSH HYPOGLYCEMIA-SEE COMMENTS; Start 10/13/16 at 07:30 Insulin Human Regular (NovoLIN R SUPPLEMENTAL SCALE) 1 Q6HR SQ Last administered on 10/26/16 12:00; Start 10/13/16 at 12:00 Linezolid 300 ml @ 300 mls/hr Q12H IV ; Start 10/13/16 at 08:00; Stop 10/13/16 at 08:07; Status DC Piperacillin Sod/ Tazobactam Sod 50 ml @ 100 mls/hr Q8H IV Last administered on 10/13/16 09:07; Start 10/13/16 at 09:00; Stop 10/13/16 at 14:13; Status DC Norepinephrine Bitartrate 16 mg/ Dextrose 250 ml @ 1.87 mls/hr TITRATE PRN IV Maintain MAP > 65 mmHg; Start 10/13/16 at 08:00; Stop 10/28/16 at 11:24; Status DC Epinephrine HCl 2 mg/Dextrose 252 ml @ 15.12 mls/ hr TITRATE PRN IV Blood Pressure Management; Start 10/13/16 at 08:15; Stop 10/13/16 at 08:47; Status DC Ketamine HCl (Ketalar Inj) 50 mg STAT ONCE IV PUSH ; Start 10/13/16 at 08:15; Stop 10/13/16 at 08:33; Status DC Midazolam HCl (Versed Inj) 2 mg STAT ONCE IV PUSH ; Start 10/13/16 at 08:15; Stop 10/13/16 at 08:31; Status DC Clindamycin Phosphate 900 mg/ Sodium Chloride 106 ml @ 212 mls/hr Q8H IV Last administered on 10/13/16 09:07; Start 10/13/16 at 09:00; Stop 10/13/16 at 13:55; Status DC Epinephrine HCl 8 mg/Dextrose 250 ml @ 5.62 mls/hr TITRATE PRN IV Blood Pressure Management Last administered on 10/13/16 09:07; Start 10/13/16 at 09:00 ; Stop 10/28/16 at 11:24; Status DC Sodium Bicarbonate (Sodium Bicarbonate 8.4% Inj) 200 meq ONCE ONCE IV PUSH Last administered on 10/13/16 11:43; Start 10/13/16 at 11:30; Stop 10/13/16 at 11: 31; Status DC Etomidate (Amidate Inj) 20 mg ONCE ONCE IV PUSH ; Start 10/13/16 at 13:15; Stop 10/13/16 at 14:37; Status DC Midazolam HCl (Versed Inj) 5 mg ONCE ONCE IV PUSH Last administered on 13:15; Start 10/13/16 at 13:15; Stop 10/13/16 at 14:37; Status DC Rocuronium Durham (Zemuron Inj) 100 mg BOLUS ONCE IV Last administered on 10/13 13:15; Start 10/13/16 at 13:15; Stop 10/13/16 at 14:37; Status DC Midazolam HCl (Versed Inj) 5 mg STK-MED ONCE .ROUTE Last administered on 13:20; Start 10/13/16 at 13:20; Stop 10/13/16 at 13:21; Status DC Micafungin Sodium 150 mg/Sodium Chloride 100 ml @ 100 mls/hr Q24H IV Last administered on 10/16/16 16:12; Start 10/13/16 at 17:00; Stop 10/16/16 at 17:40; Status DC Daptomycin 1000 mg/Sodium Chloride 100 ml @ 200 mls/hr Q48H IV Last administered on 10/27/16 16:58; Start 10/13/16 at 16:00; Stop 10/30/16 at 15:59 ; Status DC Cefepime HCl 1000 mg/Sodium Chloride 100 ml @ 200 mls/hr Q24H IV Last administered on 11/01/16 15:00; Start 10/13/16 at 15:00 Metronidazole 100 ml @ 100 mls/hr Q8H IV Last administered on 10/16/16 15:13; Start 10/13/16 at 16:00; Stop 10/16/16 at 17:40; Status DC Propofol 100 ml @ As Directed STK-MED ONCE .ROUTE ; Start 10/13/16 at 15:31; Stop 10/13/16 at 15:32; Status DC Sodium Chloride 1,000 ml @ 0 mls/hr Q0M PRN OTHER For Prime & Rinse Back Last administered on 10/21/16 10:43; Start 10/13/16 at 15:54 Heparin Sodium (Porcine) (Heparin Inj) 8,000 units UNSCH PRN IVF WITH DIALYSIS ; Start 10/13/16 at 16:00 Sodium Chloride 1,000 ml @ 200 mls/hr Q5H PRN IV WITH DIALYSIS Last administered on 10/28/16 17:35; Start 10/13/16 at 15:54 Sodium Chloride 1,000 ml @ 0 mls/hr Q0M PRN OTHER WITH DIALYSIS; Start 10/13/16 at 15:54 Mannitol (Mannitol Inj) 12.5 gm UNSCH PRN IV WITH DIALYSIS; Start 10/13/16 at 16 :00 Albumin Human (Albumin 25% Inj) 25 gm UNSCH PRN IV WITH DIALYSIS Last administered on 10/14/16 08:19; Start 10/13/16 at 16:00 Sodium Chloride (NS Flush) 5 ml UNSCH PRN IV FLUSH WITH DIALYSIS Last administered on 10/21/16 10:42; Start 10/13/16 at 16:00 Heparin Sodium (Porcine) (Heparin Inj) UNSCH PRN .XX WITH DIALYSIS Last administered on 10/28/16 17:35; Start 10/13/16 at 16:00 Gentamicin Sulfate (Gentamicin (Dialysis) Inj) 20 mg UNSCH PRN IV WITH DIALYSIS Last administered on 10/28/16 17:36; Start 10/13/16 at 16:00 Ondansetron HCl (Zofran Inj) 4 mg UNSCH PRN IV WITH DIALYSIS; Start 10/13/16 at 16:00 Acetaminophen (Tylenol) 650 mg UNSCH PRN PO for headach, pain, temp > 101F Last administered on 10/21/16 20:36; Start 10/13/16 at 16:00 Diphenhydramine HCl (Benadryl) 25 mg UNSCH PRN PO for hives/itching/ anaphylaxis Last administered on 10/28/16 06:35; Start 10/13/16 at 16:00; Stop 11/01/16 at 11:23; Status DC Nitroglycerin (Nitrostat Sl) 0.4 mg UNSCH PRN SL CHEST PAIN; Start 10/13/16 at 16:00 Clonidine (Catapres) 0.1 mg UNSCH PRN PO for BP > 180/100 X 2 readings Last administered on 10/29/16 16:52; Start 10/13/16 at 16:00; Stop 10/29/16 at 20:11 ; Status DC Gelatin (Gelfoam 12 Mm/7 Mm Top) 1 foam UNSCH PRN TOP SEE LABEL COMMENTS Last administered on 10/15/16 10:39; Start 10/13/16 at 16:00 Propofol 100 ml @ As Directed STK-MED ONCE .ROUTE ; Start 10/13/16 at 18:39; Stop 10/13/16 at 18:40; Status DC Propofol 100 ml @ 4.128 mls/ hr TITRATE PRN IV SEDATION Last administered on 13:36; Start 10/13/16 at 19:15; Stop 10/28/16 at 11:24; Status DC Famotidine (Pepcid Liq) 20 mg BID NG Last administered on 10/15/16 09:19; Start 10/14/16 at 21:00; Stop 10/15/16 at 10:04; Status DC Silver Nitrate/ Potassium Nitrate (Silver Nitrate Applicators) 1 appl UNSCH X1 ONCE TOPICAL Last administered on 10/15/16 09:19; Start 10/15/16 at 09:00; Stop 10/15/16 at 09:01; Status DC Famotidine (Pepcid Liq) 10 mg BID NG Last administered on 10/21/16 09:00; Start 10/15/16 at 21:00; Stop 10/21/16 at 20:09; Status DC Diphenhydramine HCl (Benadryl) 25 mg BID PO Last administered on 10/17/16 08:55 ; Start 10/15/16 at 21:00; Stop 10/17/16 at 09:01; Status DC Dexamethasone Sodium Phosphate (Decadron Inj) 4 mg Q6HR IV PUSH Last administered on 10/16/16 17:57; Start 10/16/16 at 10:00; Stop 10/16/16 at 18:01; Status DC Hydralazine HCl (Apresoline Inj) 20 mg Q3H PRN IV PUSH SBP > 170 Last administered on 10/31/16 20:30; Start 10/16/16 at 15:45 Labetalol HCl (Trandate Inj) 20 mg Q3H PRN IV PUSH SBP > 160 Last administered on 11/01/16 12:39; Start 10/16/16 at 15:45 Atropine Sulfate (Atropine Inj) 1 mg STK-MED ONCE IV ; Start 10/13/16 at 05:00; Stop 10/17/16 at 11:07; Status DC Sodium Bicarbonate (Sodium Bicarbonate 8.4% Inj) 50 meq STK-MED ONCE IV ; Start 10/13/16 at 05:00; Stop 10/17/16 at 11:08; Status DC Sodium Chloride 250 ml @ 15 mls/hr ONCE ONCE IV ; Start 10/18/16 at 09:30; Stop 10/19/16 at 02:09; Status DC Epinephrine HCl (EPINEPHrine (1:10,000) INJ) 1 mg STK-MED ONCE .ROUTE ; Start at 14:51; Stop 10/18/16 at 14:52; Status DC Alteplase, Recombinant (Activase Bolus) 9 mg ONCE ONCE IV Last administered on 10/18/16 16:00; Start 10/18/16 at 16:00; Stop 10/18/16 at 16:03; Status DC Alteplase, Recombinant 81 mg/ Syringe / Bag 81 ml @ 81 mls/hr ONCE ONCE IV Last administered on 10/18/16 16:01; Start 10/18/16 at 16:00; Stop 10/18/16 at 16: 59; Status DC Sodium Chloride (NS Inj) 30 ml ONCE ONCE IVF Last administered on 10/18/16 16: 00; Start 10/18/16 at 16:00; Stop 10/18/16 at 16:02; Status DC Miscellaneous Information No Heparin, Warfarin, Aspir... UNSCH PRN XX SEE DOSE INSTRUCTIONS; Start 10/18/16 at 16:00; Stop 10/19/16 at 15:59; Status DC Micafungin Sodium 150 mg/Sodium Chloride 100 ml @ 100 mls/hr Q24H IV Last administered on 10/18/16 18:32; Start 10/18/16 at 18:00; Stop 10/19/16 at 14:43; Status DC Chlorhexidine Gluconate (Peridex 0.12% Liq) 15 ml BID@08,20 MT Last administered on 10/28/16 10:50; Start 10/18/16 at 20:00 Dexamethasone Sodium Phosphate (Decadron Inj) 4 mg STAT ONCE IV PUSH Last administered on 10/19/16 11:50; Start 10/19/16 at 11:15; Stop 10/19/16 at 11:16; Status DC Racepinephrine (Racepinephrine 2.25% Neb) 0.5 ml STK-MED ONCE .ROUTE ; Start 10/19/16 at 13:19; Stop 10/19/16 at 13:20; Status DC Diphenhydramine HCl (Benadryl) 25 mg Q6H PRN PO ITCHING Last administered on 11:57; Start 10/21/16 at 15:30; Stop 10/23/16 at 10:29; Status DC Famotidine (Pepcid) 10 mg BID PO Last administered on 11/02/16 09:25; Start at 21:00 Calamine (Calamine Lotion) 1 applic Q6H PRN TOPICAL irritated skin Last administered on 10/27/16 12:00; Start 10/21/16 at 22:30 Thiamine HCl (Vitamin B1) 100 mg DAILY PO Last administered on 11/02/16 09:26 ; Start 10/23/16 at 09:00 Diphenhydramine HCl (Benadryl) 50 mg Q6H PRN PO ITCHING Last administered on 05:33; Start 10/23/16 at 15:30; Stop 11/01/16 at 11:23; Status DC Senna/Docusate Sodium (Maira-Colace) 2 tab ONCE ONCE PO Last administered on 12:11; Start 10/23/16 at 10:30; Stop 10/23/16 at 11:05; Status DC Magnesium Hydroxide (Milk Of Lion Liq) 30 ml ONCE ONCE PO Last administered on 10/23/16 12:11; Start 10/23/16 at 10:30; Stop 10/23/16 at 11:06 ; Status DC Senna/Docusate Sodium (Maira-Colace) 1 tab BID PO Last administered on 09:25; Start 10/23/16 at 21:00 Lactic Acid (Lac-Hydrin 12% Lotion) 1 applic BID TOPICAL Last administered on 09:00; Start 10/23/16 at 21:00 Cholecalciferol (Vitamin D3) 5,000 units DAILY PO Last administered on 09:00; Start 10/24/16 at 09:00 Cholecalciferol (Vitamin D3) 10,000 units ONCE ONCE PO Last administered on 18:06; Start 10/23/16 at 17:45; Stop 10/23/16 at 17:46; Status DC Senna/Docusate Sodium (Maira-Colace) 1 tab BID PO ; Start 10/24/16 at 21:00; Stop 10/24/16 at 21:00; Status DC Fluconazole (Diflucan) 100 mg Q48H PO Last administered on 10/30/16 18:01; Start 10/24/16 at 17:00; Stop 10/30/16 at 18:24; Status DC Hydralazine HCl (Apresoline) 25 mg Q12HR PO Last administered on 10/28/16 10: 48; Start 10/26/16 at 11:30; Stop 10/28/16 at 13:51; Status DC Diphenhydramine HCl (Benadryl 2% Cream) APPLY TO AFFECTED AREA Q4H PRN TOPICAL ITCHING; Start 10/27/16 at 17:30 Nifedipine (Procardia Xl) 30 mg ONCE ONCE PO Last administered on 10/28/16 18 :37; Start 10/28/16 at 14:30; Stop 10/28/16 at 14:31; Status DC Hydralazine HCl (Apresoline) 25 mg Q8H PO Last administered on 10/31/16 08:25 ; Start 10/28/16 at 16:00; Stop 10/31/16 at 10:30; Status DC Multi-Ingredient Ointment (Eucerin Cream) 1 applic Q6H PRN TOPICAL DRY SKIN Last administered on 10/30/16 13:50; Start 10/29/16 at 12:15 Nifedipine (Procardia Xl) 30 mg DAILY PO Last administered on 11/01/16 09:28; Start 10/29/16 at 12:15; Stop 11/01/16 at 12:00; Status DC Clonidine (Catapres) 0.1 mg Q8H PRN PO for BP > 180/100 X 2 readings Last administered on 10/29/16 21:45; Start 10/29/16 at 20:15 Metoprolol Tartrate (Lopressor) 25 mg DAILY PO Last administered on 11/02/16 09:25; Start 10/30/16 at 10:00 Potassium Chloride (KCl) 30 meq ONCE ONCE PO Last administered on 10/30/16 13 :40; Start 10/30/16 at 11:45; Stop 10/30/16 at 11:46; Status DC Potassium Chloride (KCl) 20 meq ONCE ONCE PO Last administered on 10/30/16 18 :01; Start 10/30/16 at 14:30; Stop 10/30/16 at 14:31; Status DC Hydralazine HCl (Apresoline) 50 mg Q8HR PO Last administered on 11/02/16 05:12 ; Start 10/31/16 at 14:00 Hydroxyzine HCl (Atarax) 25 mg Q6H PRN PO ITCHING; Start 11/01/16 at 11:30 Loratadine (Claritin) 10 mg DAILY PO Last administered on 11/02/16 09:25; Start 11/01/16 at 11:30 Nifedipine (Procardia Xl) 60 mg DAILY PO Last administered on 11/02/16 09:25; Start 11/02/16 at 09:00 A/P Assessment and Plan A/P Suspected stroke alert with acute change in neurologic status 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 Patient was administered IV thrombolysis following evaluation by neurology Dr. Burton in view of concern for brain stem CVA while awaiting MRI brain on 10/18. Subsequently MRI/MRA brain unremarkable. - Urine tox screen came back positive for benzodiazepines placing concern for surreptitious benzodiazepine use as she does not have any benzodiazepine listed on her APR. non-sustained V-tach started on lopressor- echo with EF 60%. continue to monitor. Obesity Hypoventilation Syndrome COPD Sleep Apnea Acute hypoxic and hypercarbic respiratory failure- persistent, no improvement. Pulmonary Edema - intubated and then extubated 10/16. -Emergently intubated on 10/18 for airway protection due to altered mental status. Extubated on 10/19- now stable. Septic Shock- resolving. pseudomonas bacteremia Severe Tricuspid Regurgitation IV antibiotics per ID recommendations; on Cefepime. Acute kidney injury requiring renal replacement therapy - nephrology following - HD per nephrology; HD on hold for now. -- Strict IOs Severe metabolic acidosis- resolved Hyperkalemia- resolved. Morbid Obesity Chronic anemia- likely secondary to chronic disease Septic Shock LLE osteomyelitis Pseudomonas bacteremia Gram Positive Bacteremia Pseudomonas osteomyelitis Fungal Urinary Tract Infection -Recommend transfusions of PRBCs to keep hemoglobin above 7 g percent. - ID following. - continue antibiotics per ID. Diabetes -Vitamin D deficiency. -- Patient had low vitamin D and was started on cholecalciferol. -- continue accu-check with sliding scale. hypertension-uncontrolled continue Procardia XL and metoprolol- will increase hydralazine continue to monitor and adjust the regimen as needed. GI Prophylaxis pepcid DVT Prophylaxis -- SCDs Sub-cutaneous heparin Discharge Planning when cleared by ID and nephrology. Roseanna Murphy MD Nov 02, 2016 10:24
--- NOTE | 2016-11-02 13:56 | HHI.NPPN ---
Subjective General Problems: Anemia Renal Failure: Acute Interval History Lying in bed itching. Creatinine slightly higher today. (Lizy Pineda) Review of Systems General Constitutional: Fatigue (Lizy Pineda) Eyes Eyes: Itching (Lizy Pineda) Ears, Nose, & Throat ENT Remarks loss of appetite (Lizy Pineda) Respiratory Lungs: SOB (Lizy Pineda) Cardiovascular Cardiac: Edema (Lizy Pineda) Endocrine Endocrine: Thirst (Lizy Pineda) Skin Skin: Skin Rash, Ulcers Skin Remarks generalized rash with peeling skin; ulcer planter surface left foot (Lizy Pineda) Objective Data Data Vital Signs Date Time Temp Pulse Resp B/P (MAP) Pulse Ox O2 Delivery O2 Flow Rate FiO2 11/02/16 12:00 98.9 84 20 182/83 (116) 99 11/02/16 09:00 Room Air 11/02/16 08:00 97.6 93 20 170/81 (110) 99 11/02/16 06:25 105 11/02/16 04:00 98.4 94 22 182/98 (126) 99 11/02/16 02:47 96 11/02/16 00:45 160/78 (105) 11/02/16 00:00 97.7 89 19 172/81 (111) 96 11/01/16 21:45 Room Air 11/01/16 20:00 97.6 90 21 172/87 (115) 98 11/01/16 16:00 98.7 82 20 194/94 (127) 100 11/01/16 15:40 86 11/01/16 15:08 95 21 11/01/16 15:00 Room Air 11/01/16 15:00 Room Air (Lizy Pineda) -: 11/02/16 0644 Tubes & Lines: Vas-Cath, Shah (Lizy Pineda) Physical Exam General Appearance: Well Developed, No Acute Distress, Comfortable, Obese (Lizy Pineda) Eyes Eye Exam: Pupils Equal (Miriam,Lizy B. AERONAUTICAL ENGINEERING TECHNOLOGIST) Throat Throat Exam: Oral Mucosa [place] & Moist (Lizy PinedaP) Neck Neck Exam: Neck Supple (Lizy PinedaP) Pulmonary Resp Exam: Breath Sounds Equal, No Distress, Rhonchi, Decreased Bases (Lizy Pineda AERONAUTICAL ENGINEERING TECHNOLOGIST) Cardiology CV Exam: Regular, Normal Sinus Rhythm, Good Perfusion (Lizy PinedaP) Gastrointestinal/Abdomen GI Exam: Soft, Non-Tender, Bowel Sounds Present (Lizy PinedaP) Musculoskeletal MS Exam: Joints Intact, Normal Tone, Unable to Ambulate (Lizy PinedaP) Integumentary Skin Exam: Warm, Dry, Intact Skin Remarks left foot ulcer skin is scaly (Lizy Pineda) Extremeties Extremities Exam: Pedal Pulses Palpable, Pitting Edema (Lizy Pineda) Neurologic Neuro Exam: Alert, Awake, Oriented, Speech Clear, Moving All Extremities (Lizy Pineda) Psychiatric Psych Exam: Appropriate Responses (Lizy Pineda) Assessment/Plan Discussed Condition With: Patient Assessment Summary: FREDI/Acute Renal Failure Problem List: (1) Acute renal failure ICD Codes: N17.9 - Acute kidney failure, unspecified Status: Acute Plan: She apparently has a baseline creatinine of 1mg/dL FREDI from [facility], secondary vancomycin induced nephrotoxicity, allergic interstitial nephritis. may also be due to sepsis HD initiated on 10/13/16, has been on TTS HD schedule Dialysis held today, repeat labs in AM Monitor urine output.Although accurate output may not be recorded. repeat labs in AM Avoid nephrotoxic agents. Avoid IVF. (2) Sepsis ICD Codes: A41.9 - Sepsis, unspecified organism Plan: + Pseudomonas in the blood, and gram stain of the wound. Currently on Cefepime (x 6 weeks) D/W ID, Midline placement okay (3) Metabolic acidosis ICD Codes: E87.2 - Acidosis Status: Acute Plan: Corrected, monitor (4) Anemia ICD Codes: D64.9 - Anemia Status: Acute Plan: Hb improved, monitor (5) Vitamin D deficiency ICD Codes: E55.9 - Vitamin D deficiency, unspecified Plan: replacement ordered (6) Itching ICD Codes: L29.9 - Pruritus, unspecified Plan: on Benadryl cream also Vistaril PRN with daily Claritin (Lizy Pineda) Plan patient was seen and examined. Agree with above assessment and plan. Monitor urine output and renal function. Avoid nephrotoxic agents. Dialysis as needed. Awaiting renal recovery. (Francisco Javier Quiros MD) Problem Qualifiers (1) Acute renal failure: Qualified Codes: N17.9 - Acute kidney failure, unspecified (2) Anemia: Qualified Codes: D64.9 - Anemia, unspecified Lizy Pineda Nov 02, 2016 13:56 Francisco Javier Quiros MD Nov 03, 2016 14:46
[2016-11-02] MEDS: CEFEPIME INJ 1,000 MG in SODIUM CHLORIDE 0.9% INJ 100 ML IV SCH (14:54)
[2016-11-02] MEDS: hydrALAZINE HCL 25 MG TAB PO SCH ×2 (14:54→21:42)
[2016-11-02] MEDS: CHLORHEXIDINE 0.12% (ORAL KIT) 15 ML CUP MT SCH (20:00)
[2016-11-03] VITALS (11 sets, daily range): BP systolic 134–182; BP diastolic 61–89; PULSE 80–92; RESP 16–20; TEMP 98.3–98.7; O2SAT 92–100
[2016-11-03] MEDS: RESP: IPRATROPIUM 0.5 MG/2.5 ML NEB NEB SCH ×4 (03:47→20:40)
[2016-11-03] MEDS: INSULIN NovoLIN REGULAR SUPPLEMENTAL SCALE SQ SCH ×4 (05:30→18:00)
[2016-11-03] MEDS: hydrALAZINE HCL 25 MG TAB PO SCH (05:30)
[2016-11-03 07:48] LABS: AUTOMATED NEUTROPHIL # 3.5 TH/MM3 (1.8-7.7); BASOPHIL # 0.1 TH/MM3 (0-0.2); EOSINOPHIL # 0.3 TH/MM3 (0-0.4); EOSINOPHIL % 4.8 % (0.0-4.0); HEMATOCRIT 30.7 % (35.0-46.0); HEMO FLAGS DIFF FINAL; LYMPH % 21.4 % (9.0-44.0); LYMPHOCYTE # 1.2 TH/MM3 (1.0-4.8); MEAN CELL VOLUME 94.1 FL (80.0-100.0); MEAN CORPUSCULAR HEMOGLOBIN 30.7 PG (27.0-34.0); MEAN CORPUSCULAR HGB CONC 32.6 % (32.0-36.0); MONO % 10.3 % (0.0-8.0); NEUT % 62.5 % (16.0-70.0); PLATELET COUNT 287 TH/MM3 (150-450); RED BLOOD COUNT 3.27 MIL/MM3 (4.00-5.30); RED CELL DISTRIBUTION WIDTH 18.2 % (11.6-17.2); WHITE BLOOD COUNT 5.5 TH/MM3 (4.0-11.0)
[2016-11-03] MEDS: CHLORHEXIDINE 0.12% (ORAL KIT) 15 ML CUP MT SCH ×2 (08:00→20:00)
[2016-11-03] MEDS: LACTOBACILLUS ACIDOPHILUS TAB PO SCH ×3 (08:00→18:47)
[2016-11-03 08:07] LABS: BICARBONATE 24.8 MEQ/L (21.0-32.0); POTASSIUM 3.7 MEQ/L (3.5-5.1)
[2016-11-03] MEDS: NIFEdipine 60 MG SUSTAINED RELEASE TAB PO SCH (09:57)
[2016-11-03] MEDS: FAMOTIDINE 20 MG TAB PO SCH ×2 (09:57→20:35)
[2016-11-03] MEDS: THIAMINE HCL 100 MG TAB PO SCH (09:57)
[2016-11-03] MEDS: DOCUSATE SODIUM 50 MG/SENNA 8.6 MG TAB PO SCH ×2 (09:57→20:35)
[2016-11-03] MEDS: METOPROLOL TARTRATE 25 MG TAB PO SCH (09:57)
[2016-11-03] MEDS: CHOLECALCIFEROL (VIT D3) 5000 UNIT CAP PO SCH (09:57)
[2016-11-03] MEDS: LORATADINE 10 MG TAB PO SCH (09:57)
--- NOTE | 2016-11-03 10:50 | HHI.PR ---
Subjective Remarks in no acute distress. no new complaints. afebrile. Objective Vitals Vital Signs Date Time Temp Pulse Resp B/P (MAP) Pulse Ox O2 Delivery O2 Flow Rate FiO2 11/03/16 08:44 98 21 11/03/16 04:00 98.3 92 20 174/81 (112) 97 11/03/16 03:49 96 11/03/16 00:00 98.3 92 20 170/77 (108) 98 11/02/16 21:55 Room Air 11/02/16 20:00 88 11/02/16 20:00 98.1 68 20 168/72 (104) 98 11/02/16 16:00 97.7 86 20 181/77 (111) 96 11/02/16 15:10 99 21 11/02/16 12:00 98.9 84 20 182/83 (116) 99 I/O 11/02/16 11/02/16 11/02/16 11/03/16 11/03/16 11/03/16 07:00 15:00 23:00 07:00 15:00 23:00 Intake Total 180 ml Output Total 0 ml Balance 180 ml Intake Oral 180 ml Output Urine Total 0 ml # Voids 0 # Bowel Movements 0 Result Diagram: 11/03/16 0649 11/03/16 0649 Imaging Last Impressions Liver Ultrasound 10/23/16 0000 Signed Impressions: Service Date/Time: Sunday, October 23, 2016 09:45 - CONCLUSION: 1. Gallbladder sludge 2. No evidence of biliary duct dilatation 3. Otherwise unremarkable exam. Jaiden Weston MD Head CT 10/19/16 1700 Signed Impressions: Service Date/Time: October 17:01 - CONCLUSION: No acute intracranial findings Ricco Kulkarni MD Head Magnetic Resonance Angiography 10/18/16 0000 Signed Impressions: Service Date/Time: Tuesday, October 18, 2016 16:23 - CONCLUSION: Normal examination. Ricco Kulkarni MD Chest X-Ray 10/18/16 0000 Signed Impressions: Service Date/Time: Tuesday, October 18, 2016 14:59 - CONCLUSION: 1. Mild to moderate pulmonary vascular congestion. 2. Cardiomegaly. 3. Elevation of the right hemidiaphragm. 4. Endotracheal tube in good position 3 cm above the elsie. 5. Left internal jugular VasCath and left subclavian central line are stable in positions. Raymond Smith MD Brain MRI 10/18/16 Signed Impressions: Service Date/Time: Tuesday, October 18, 2016 16:11 - CONCLUSION: Nonspecific white matter signal change in the left frontal region. No evidence of acute stroke. Ricco Kulkarni MD Ankle X-Ray 10/14/16 Signed Impressions: Service Date/Time: Friday, October 14, 2016 17:01 - CONCLUSION: Marked soft tissue swelling with subcutaneous calcifications. Negative for fracture. Roman Montiel MD FACR Upper Extremity Ultrasound 10/13/16 Signed Impressions: Service Date/Time: Thursday, October 13, 2016 09:17 - CONCLUSION: 1. No DVT. 2. Subcutaneous edema observed. Wilner Potter Jr., MD Lower Extremity Ultrasound 10/13/16 Signed Impressions: Service Date/Time: Thursday, October 13, 2016 08:57 - CONCLUSION: 1. Study has some limitations as detailed above. No DVT observed. Wilner Potter Jr., MD Lower Extremity CT 10/13/16 Signed Impressions: Service Date/Time: Thursday, October 13, 2016 21:35 - CONCLUSION: Ulcer at the region of the base of the fifth metatarsal. There appears to be chronic and acute changes in this region. The acute changes are worrisome for osteomyelitis at the base of the fifth metatarsal. Ricco Fuentes MD Chest CT 10/13/16 Signed Impressions: Service Date/Time: Thursday, October 13, 2016 21:27 - CONCLUSION: 1. Patchy areas of consolidation seen bilaterally being worse on the right. These could represent areas of inflammatory/infectious disease. Focal round lesions to suggest septic emboli are not clearly identified. 2. Edema seen at the right superficial chest and abdomen regions. The cause of for this asymmetric edema is not known. 3. Mild ascites. Ricco Fuentes MD Abdomen CT 10/13/16 Signed Impressions: Service Date/Time: Thursday, October 13, 2016 21:27 - CONCLUSION: 1. Mild ascites seen around the liver. 2. Superficial edema seen bilaterally in the subcutaneous tissues. This is asymmetric and being much more prominent on the right. 3. Small area of increased density seen independently in the gallbladder representing either small gallstones or milk of calcium. Ricco Fuentes MD Renal Ultrasound 10/12/16 0000 Signed Impressions: Service Date/Time: September 20:54 - CONCLUSION: Normal appearance of the kidneys. Ricco Fuentes MD Objective Remarks GENERAL: This is a well-nourished, well-developed patient, in no apparent distress. CARDIOVASCULAR: Regular rate and regular rhythm without murmurs, gallops, or rubs. RESPIRATORY: Clear to auscultation. Breath sounds equal bilaterally. No wheezes , rales, or rhonchi. GASTROINTESTINAL: Abdomen soft, non-tender, nondistended. Normal, active bowel sounds MUSCULOSKELETAL: Extremities without clubbing, cyanosis, or edema. NEURO: Alert & Oriented x4 to person, place, time, situation. Moves all ext x4 Medications and IVs Current Medications Sodium Chloride 1,000 ml @ 999 mls/hr BOLUS ONCE IV Last administered on 10/12 18:59; Start 10/12/16 at 18:15; Stop 10/12/16 at 19:15; Status DC Sodium Bicarbonate 150 meq/Sterile Water 1,000 ml @ 100 mls/hr Q10H IV Last administered on 10/12/16 23:39; Start 10/12/16 at 20:15; Stop 10/13/16 at 05:52 ; Status DC Sodium Chloride (NS Flush) 2 ml UNSCH PRN IV FLUSH FLUSH AFTER USING IV ACCESS ; Start 10/12/16 at 20:15 Sodium Chloride (NS Flush) 2 ml BID IV FLUSH Last administered on 11/02/16 21: 00; Start 10/12/16 at 21:00 Heparin Sodium (Porcine) (Heparin Inj) 5,000 units Q8H SQ Last administered on 10/18/16 12:42; Start 10/13/16 at 06:00; Stop 10/18/16 at 15:57; Status DC Naloxone HCl (Narcan Inj) 0.4 mg UNSCH PRN IV SEE LABEL COMMENTS; Start at 20:15 Calcium Gluconate (Calcium Gluconate Inj) 1 gm ONCE ONCE IV PUSH ; Start at 20:15; Stop 10/12/16 at 21:51; Status DC Insulin Human Regular (NovoLIN R INJ) 10 units ONCE ONCE IV PUSH Last administered on 10/12/16 23:54; Start 10/12/16 at 20:15; Stop 10/12/16 at 21:53 ; Status DC Dextrose (D50w (Syr) Inj) 50 ml ONCE ONCE IV PUSH Last administered on 23:53; Start 10/12/16 at 20:15; Stop 10/12/16 at 21:52; Status DC Sodium Polystyrene Sulfonate (Kayexalate Liq) 30 gm ONCE ONCE PO Last administered on 10/12/16 23:40; Start 10/12/16 at 20:15; Stop 10/12/16 at 21:54 ; Status DC Dextrose (D50w (Vial) Inj) 50 ml UNSCH PRN IV HYPOGLYCEMIA-SEE COMMENTS; Start 10/12/16 at 20:15; Stop 10/13/16 at 07:33; Status DC Glucagon (Glucagon Inj) 1 mg UNSCH PRN OTHER HYPOGLYCEMIA-SEE COMMENTS; Start 10/12/16 at 20:15 Insulin Aspart (NovoLOG SUPPLEMENTAL SCALE) 1 ACHS SLIDING SCALE SQ ; Start at 21:00; Stop 10/13/16 at 07:30; Status DC Calcium Gluconate 1 gm/Sodium Chloride 110 ml @ 110 mls/hr ONCE ONCE IV Last administered on 10/12/16 23:54; Start 10/12/16 at 23:00; Stop 10/12/16 at 23:59 ; Status DC Ipratropium [place] (Atrovent Neb) 0.5 mg Q6HR NEB NEB Last administered on 08:44; Start 10/13/16 at 04:00 Ipratropium [place] (Atrovent Neb) 0.5 mg Q2HR NEB PRN NEB wheezing; Start 10/13 at 00:45 Amitriptyline HCl (Elavil) 50 mg HS PO ; Start 10/13/16 at 21:00; Stop 10/13/16 at 21:00; Status DC Hydralazine HCl (Apresoline) 100 mg TID PO ; Start 10/13/16 at 09:00; Stop at 09:00; Status DC Insulin Detemir (Levemir Inj) 20 units AC BREAKFAST SQ ; Start 10/13/16 at 07:00 ; Stop 10/13/16 at 07:00; Status DC Insulin Detemir (Levemir Inj) 25 units HS SQ ; Start 10/13/16 at 21:00; Stop 10/13 at 21:00; Status DC Labetalol HCl (Trandate) 200 mg TID PO ; Start 10/13/16 at 09:00; Stop 10/13/16 at 09:00; Status DC Lactobacillus Acidophilus (Lactinex) 1 tab TIDAC PO Last administered on t 08:00; Start 10/13/16 at 08:00 Loratadine (Claritin) 10 mg DAILY PO ; Start 10/13/16 at 09:00; Stop 10/13/16 at 09:00; Status DC Montelukast Sodium (Singulair) 10 mg HS PO ; Start 10/13/16 at 21:00; Stop at 21:00; Status DC Nifedipine (Procardia Xl) 60 mg TID PO ; Start 10/13/16 at 09:00; Stop 10/13/16 at 09:00; Status DC Pravastatin Sodium (Pravachol) 40 mg DAILY PO ; Start 10/13/16 at 09:00; Stop 10/13/16 at 09:00; Status DC Sodium Chloride 1,000 ml @ 999 mls/hr BOLUS ONCE IV Last administered on t 05:42; Start 10/13/16 at 04:45; Stop 10/13/16 at 05:45; Status DC Sodium Bicarbonate 150 meq/Dextrose 1,150 ml @ 75 mls/hr [id number] IV ; Start 10/13/16 at 08:00; Stop 10/13/16 at 08:00; Status DC Norepinephrine Bitartrate 250 ml @ As Directed STK-MED ONCE IV ; Start 10/13/16 at 07:25; Stop 10/13/16 at 07:26; Status DC Norepinephrine Bitartrate 250 ml @ 7.5 mls/hr TITRATE PRN IV Blood pressure management; Start 10/13/16 at 07:30; Status UNV Terbutaline Sulfate (Brethine Inj) 1 mg UNSCH PRN SQ For Extravasation; Start 10/13/16 at 07:30; Stop 10/28/16 at 11:24; Status DC Sodium Bicarbonate (Sodium Bicarbonate 8.4% Inj) 200 meq ONCE ONCE IV PUSH Last administered on 10/13/16 07:30; Start 10/13/16 at 07:30; Stop 10/13/16 at 07: 35; Status DC Dextrose (D50w (Vial) Inj) 25 ml UNSCH PRN IV PUSH HYPOGLYCEMIA-SEE COMMENTS; Start 10/13/16 at 07:30 Insulin Human Regular (NovoLIN R SUPPLEMENTAL SCALE) 1 Q6HR SQ Last administered on 10/26/16 12:00; Start 10/13/16 at 12:00 Linezolid 300 ml @ 300 mls/hr Q12H IV ; Start 10/13/16 at 08:00; Stop 10/13/16 at 08:07; Status DC Piperacillin Sod/ Tazobactam Sod 50 ml @ 100 mls/hr Q8H IV Last administered on 10/13/16 09:07; Start 10/13/16 at 09:00; Stop 10/13/16 at 14:13; Status DC Norepinephrine Bitartrate 16 mg/ Dextrose 250 ml @ 1.87 mls/hr TITRATE PRN IV Maintain MAP > 65 mmHg; Start 10/13/16 at 08:00; Stop 10/28/16 at 11:24; Status DC Epinephrine HCl 2 mg/Dextrose 252 ml @ 15.12 mls/ hr TITRATE PRN IV Blood Pressure Management; Start 10/13/16 at 08:15; Stop 10/13/16 at 08:47; Status DC Ketamine HCl (Ketalar Inj) 50 mg STAT ONCE IV PUSH ; Start 10/13/16 at 08:15; Stop 10/13/16 at 08:33; Status DC Midazolam HCl (Versed Inj) 2 mg STAT ONCE IV PUSH ; Start 10/13/16 at 08:15; Stop 10/13/16 at 08:31; Status DC Clindamycin Phosphate 900 mg/ Sodium Chloride 106 ml @ 212 mls/hr Q8H IV Last administered on 10/13/16 09:07; Start 10/13/16 at 09:00; Stop 10/13/16 at 13:55; Status DC Epinephrine HCl 8 mg/Dextrose 250 ml @ 5.62 mls/hr TITRATE PRN IV Blood Pressure Management Last administered on 10/13/16 09:07; Start 10/13/16 at 09:00 ; Stop 10/28/16 at 11:24; Status DC Sodium Bicarbonate (Sodium Bicarbonate 8.4% Inj) 200 meq ONCE ONCE IV PUSH Last administered on 10/13/16 11:43; Start 10/13/16 at 11:30; Stop 10/13/16 at 11: 31; Status DC Etomidate (Amidate Inj) 20 mg ONCE ONCE IV PUSH ; Start 10/13/16 at 13:15; Stop 10/13/16 at 14:37; Status DC Midazolam HCl (Versed Inj) 5 mg ONCE ONCE IV PUSH Last administered on 13:15; Start 10/13/16 at 13:15; Stop 10/13/16 at 14:37; Status DC Rocuronium [place] (Zemuron Inj) 100 mg BOLUS ONCE IV Last administered on 10/13 13:15; Start 10/13/16 at 13:15; Stop 10/13/16 at 14:37; Status DC Midazolam HCl (Versed Inj) 5 mg STK-MED ONCE .ROUTE Last administered on 13:20; Start 10/13/16 at 13:20; Stop 10/13/16 at 13:21; Status DC Micafungin Sodium 150 mg/Sodium Chloride 100 ml @ 100 mls/hr Q24H IV Last administered on 10/16/16 16:12; Start 10/13/16 at 17:00; Stop 10/16/16 at 17:40; Status DC Daptomycin 1000 mg/Sodium Chloride 100 ml @ 200 mls/hr Q48H IV Last administered on 10/27/16 16:58; Start 10/13/16 at 16:00; Stop 10/30/16 at 15:59 ; Status DC Cefepime HCl 1000 mg/Sodium Chloride 100 ml @ 200 mls/hr Q24H IV Last administered on 11/02/16 14:54; Start 10/13/16 at 15:00 Metronidazole 100 ml @ 100 mls/hr Q8H IV Last administered on 10/16/16 15:13; Start 10/13/16 at 16:00; Stop 10/16/16 at 17:40; Status DC Propofol 100 ml @ As Directed STK-MED ONCE .ROUTE ; Start 10/13/16 at 15:31; Stop 10/13/16 at 15:32; Status DC Sodium Chloride 1,000 ml @ 0 mls/hr Q0M PRN OTHER For Prime & Rinse Back Last administered on 10/21/16 10:43; Start 10/13/16 at 15:54 Heparin Sodium (Porcine) (Heparin Inj) 8,000 units UNSCH PRN IVF WITH DIALYSIS ; Start 10/13/16 at 16:00 Sodium Chloride 1,000 ml @ 200 mls/hr Q5H PRN IV WITH DIALYSIS Last administered on 10/28/16 17:35; Start 10/13/16 at 15:54 Sodium Chloride 1,000 ml @ 0 mls/hr Q0M PRN OTHER WITH DIALYSIS; Start 10/13/16 at 15:54 Mannitol (Mannitol Inj) 12.5 gm UNSCH PRN IV WITH DIALYSIS; Start 10/13/16 at 16 :00 Albumin Human (Albumin 25% Inj) 25 gm UNSCH PRN IV WITH DIALYSIS Last administered on 10/14/16 08:19; Start 10/13/16 at 16:00 Sodium Chloride (NS Flush) 5 ml UNSCH PRN IV FLUSH WITH DIALYSIS Last administered on 10/21/16 10:42; Start 10/13/16 at 16:00 Heparin Sodium (Porcine) (Heparin Inj) UNSCH PRN .XX WITH DIALYSIS Last administered on 10/28/16 17:35; Start 10/13/16 at 16:00 Gentamicin Sulfate (Gentamicin (Dialysis) Inj) 20 mg UNSCH PRN IV WITH DIALYSIS Last administered on 10/28/16 17:36; Start 10/13/16 at 16:00 Ondansetron HCl (Zofran Inj) 4 mg UNSCH PRN IV WITH DIALYSIS; Start 10/13/16 at 16:00 Acetaminophen (Tylenol) 650 mg UNSCH PRN PO for headach, pain, temp > 101F Last administered on 10/21/16 20:36; Start 10/13/16 at 16:00 Diphenhydramine HCl (Benadryl) 25 mg UNSCH PRN PO for hives/itching/ anaphylaxis Last administered on 10/28/16 06:35; Start 10/13/16 at 16:00; Stop 11/01/16 at 11:23; Status DC Nitroglycerin (Nitrostat Sl) 0.4 mg UNSCH PRN SL CHEST PAIN; Start 10/13/16 at 16:00 Clonidine (Catapres) 0.1 mg UNSCH PRN PO for BP > 180/100 X 2 readings Last administered on 10/29/16 16:52; Start 10/13/16 at 16:00; Stop 10/29/16 at 20:11 ; Status DC Gelatin (Gelfoam 12 Mm/7 Mm Top) 1 foam UNSCH PRN TOP SEE LABEL COMMENTS Last administered on 10/15/16 10:39; Start 10/13/16 at 16:00 Propofol 100 ml @ As Directed STK-MED ONCE .ROUTE ; Start 10/13/16 at 18:39; Stop 10/13/16 at 18:40; Status DC Propofol 100 ml @ 4.128 mls/ hr TITRATE PRN IV SEDATION Last administered on 13:36; Start 10/13/16 at 19:15; Stop 10/28/16 at 11:24; Status DC Famotidine (Pepcid Liq) 20 mg BID NG Last administered on 10/15/16 09:19; Start 10/14/16 at 21:00; Stop 10/15/16 at 10:04; Status DC Silver Nitrate/ Potassium Nitrate (Silver Nitrate Applicators) 1 appl UNSCH X1 ONCE TOPICAL Last administered on 10/15/16 09:19; Start 10/15/16 at 09:00; Stop 10/15/16 at 09:01; Status DC Famotidine (Pepcid Liq) 10 mg BID NG Last administered on 10/21/16 09:00; Start 10/15/16 at 21:00; Stop 10/21/16 at 20:09; Status DC Diphenhydramine HCl (Benadryl) 25 mg BID PO Last administered on 10/17/16 08:55 ; Start 10/15/16 at 21:00; Stop 10/17/16 at 09:01; Status DC Dexamethasone Sodium Phosphate (Decadron Inj) 4 mg Q6HR IV PUSH Last administered on 10/16/16 17:57; Start 10/16/16 at 10:00; Stop 10/16/16 at 18:01; Status DC Hydralazine HCl (Apresoline Inj) 20 mg Q3H PRN IV PUSH SBP > 170 Last administered on 10/31/16 20:30; Start 10/16/16 at 15:45 Labetalol HCl (Trandate Inj) 20 mg Q3H PRN IV PUSH SBP > 160 Last administered on 11/01/16 12:39; Start 10/16/16 at 15:45 Atropine Sulfate (Atropine Inj) 1 mg STK-MED ONCE IV ; Start 10/13/16 at 05:00; Stop 10/17/16 at 11:07; Status DC Sodium Bicarbonate (Sodium Bicarbonate 8.4% Inj) 50 meq STK-MED ONCE IV ; Start 10/13/16 at 05:00; Stop 10/17/16 at 11:08; Status DC Sodium Chloride 250 ml @ 15 mls/hr ONCE ONCE IV ; Start 10/18/16 at 09:30; Stop 10/19/16 at 02:09; Status DC Epinephrine HCl (EPINEPHrine (1:10,000) INJ) 1 mg STK-MED ONCE .ROUTE ; Start at 14:51; Stop 10/18/16 at 14:52; Status DC Alteplase, Recombinant (Activase Bolus) 9 mg ONCE ONCE IV Last administered on 10/18/16 16:00; Start 10/18/16 at 16:00; Stop 10/18/16 at 16:03; Status DC Alteplase, Recombinant 81 mg/ Syringe / Bag 81 ml @ 81 mls/hr ONCE ONCE IV Last administered on 10/18/16 16:01; Start 10/18/16 at 16:00; Stop 10/18/16 at 16: 59; Status DC Sodium Chloride (NS Inj) 30 ml ONCE ONCE IVF Last administered on 10/18/16 16: 00; Start 10/18/16 at 16:00; Stop 10/18/16 at 16:02; Status DC Miscellaneous Information No Heparin, Warfarin, Aspir... UNSCH PRN XX SEE DOSE INSTRUCTIONS; Start 10/18/16 at 16:00; Stop 10/19/16 at 15:59; Status DC Micafungin Sodium 150 mg/Sodium Chloride 100 ml @ 100 mls/hr Q24H IV Last administered on 10/18/16 18:32; Start 10/18/16 at 18:00; Stop 10/19/16 at 14:43; Status DC Chlorhexidine Gluconate (Peridex 0.12% Liq) 15 ml BID@08,20 MT Last administered on 10/28/16 10:50; Start 10/18/16 at 20:00 Dexamethasone Sodium Phosphate (Decadron Inj) 4 mg STAT ONCE IV PUSH Last administered on 10/19/16 11:50; Start 10/19/16 at 11:15; Stop 10/19/16 at 11:16; Status DC Racepinephrine (Racepinephrine 2.25% Neb) 0.5 ml STK-MED ONCE .ROUTE ; Start 10/19/16 at 13:19; Stop 10/19/16 at 13:20; Status DC Diphenhydramine HCl (Benadryl) 25 mg Q6H PRN PO ITCHING Last administered on 11:57; Start 10/21/16 at 15:30; Stop 10/23/16 at 10:29; Status DC Famotidine (Pepcid) 10 mg BID PO Last administered on 11/03/16 09:57; Start at 21:00 Calamine (Calamine Lotion) 1 applic Q6H PRN TOPICAL irritated skin Last administered on 10/27/16 12:00; Start 10/21/16 at 22:30 Thiamine HCl (Vitamin B1) 100 mg DAILY PO Last administered on 11/03/16 09:57 ; Start 10/23/16 at 09:00 Diphenhydramine HCl (Benadryl) 50 mg Q6H PRN PO ITCHING Last administered on 05:33; Start 10/23/16 at 15:30; Stop 11/01/16 at 11:23; Status DC Senna/Docusate Sodium (Maira-Colace) 2 tab ONCE ONCE PO Last administered on 12:11; Start 10/23/16 at 10:30; Stop 10/23/16 at 11:05; Status DC Magnesium Hydroxide (Milk Of Magnesia Liq) 30 ml ONCE ONCE PO Last administered on 10/23/16 12:11; Start 10/23/16 at 10:30; Stop 10/23/16 at 11:06 ; Status DC Senna/Docusate Sodium (Maira-Colace) 1 tab BID PO Last administered on 09:57; Start 10/23/16 at 21:00 Lactic Acid (Lac-Hydrin 12% Lotion) 1 applic BID TOPICAL Last administered on 09:00; Start 10/23/16 at 21:00 Cholecalciferol (Vitamin D3) 5,000 units DAILY PO Last administered on 09:57; Start 10/24/16 at 09:00 Cholecalciferol (Vitamin D3) 10,000 units ONCE ONCE PO Last administered on 18:06; Start 10/23/16 at 17:45; Stop 10/23/16 at 17:46; Status DC Senna/Docusate Sodium (Maira-Colace) 1 tab BID PO ; Start 10/24/16 at 21:00; Stop 10/24/16 at 21:00; Status DC Fluconazole (Diflucan) 100 mg Q48H PO Last administered on 10/30/16 18:01; Start 10/24/16 at 17:00; Stop 10/30/16 at 18:24; Status DC Hydralazine HCl (Apresoline) 25 mg Q12HR PO Last administered on 10/28/16 10: 48; Start 10/26/16 at 11:30; Stop 10/28/16 at 13:51; Status DC Diphenhydramine HCl (Benadryl 2% Cream) APPLY TO AFFECTED AREA Q4H PRN TOPICAL ITCHING; Start 10/27/16 at 17:30 Nifedipine (Procardia Xl) 30 mg ONCE ONCE PO Last administered on 10/28/16 18 :37; Start 10/28/16 at 14:30; Stop 10/28/16 at 14:31; Status DC Hydralazine HCl (Apresoline) 25 mg Q8H PO Last administered on 10/31/16 08:25 ; Start 10/28/16 at 16:00; Stop 10/31/16 at 10:30; Status DC Multi-Ingredient Ointment (Eucerin Cream) 1 applic Q6H PRN TOPICAL DRY SKIN Last administered on 10/30/16 13:50; Start 10/29/16 at 12:15 Nifedipine (Procardia Xl) 30 mg DAILY PO Last administered on 11/01/16 09:28; Start 10/29/16 at 12:15; Stop 11/01/16 at 12:00; Status DC Clonidine (Catapres) 0.1 mg Q8H PRN PO for BP > 180/100 X 2 readings Last administered on 10/29/16 21:45; Start 10/29/16 at 20:15 Metoprolol Tartrate (Lopressor) 25 mg DAILY PO Last administered on 11/03/16 09:57; Start 10/30/16 at 10:00 Potassium Chloride (KCl) 30 meq ONCE ONCE PO Last administered on 10/30/16 13 :40; Start 10/30/16 at 11:45; Stop 10/30/16 at 11:46; Status DC Potassium Chloride (KCl) 20 meq ONCE ONCE PO Last administered on 10/30/16 18 :01; Start 10/30/16 at 14:30; Stop 10/30/16 at 14:31; Status DC Hydralazine HCl (Apresoline) 50 mg Q8HR PO Last administered on 11/02/16 05:12 ; Start 10/31/16 at 14:00; Stop 11/02/16 at 10:25; Status DC Hydroxyzine HCl (Atarax) 25 mg Q6H PRN PO ITCHING; Start 11/01/16 at 11:30 Loratadine (Claritin) 10 mg DAILY PO Last administered on 11/03/16 09:57; Start 11/01/16 at 11:30 Nifedipine (Procardia Xl) 60 mg DAILY PO Last administered on 11/03/16 09:57; Start 11/02/16 at 09:00 Hydralazine HCl (Apresoline) 75 mg Q8HR PO Last administered on 11/03/16 05:30 ; Start 11/02/16 at 14:00 A/P Assessment and Plan A/P Suspected stroke alert with acute change in neurologic status 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 Patient was administered IV thrombolysis following evaluation by neurology Dr. Burton in view of concern for brain stem CVA while awaiting MRI brain on 10/18. Subsequently MRI/MRA brain unremarkable. - Urine tox screen came back positive for benzodiazepines placing concern for surreptitious benzodiazepine use as she does not have any benzodiazepine listed on her APR. non-sustained V-tach started on lopressor- echo with EF 60%. continue to monitor. Obesity Hypoventilation Syndrome COPD Sleep Apnea Acute hypoxic and hypercarbic respiratory failure- persistent, no improvement. Pulmonary Edema - intubated and then extubated 10/16. -Emergently intubated on 10/18 for airway protection due to altered mental status. Extubated on 10/19- now stable. Septic Shock- resolving. pseudomonas bacteremia Severe Tricuspid Regurgitation IV antibiotics per ID recommendations; on Cefepime. Acute kidney injury requiring renal replacement therapy - nephrology following - HD per nephrology; HD on hold for now. -monitor the renal function. -- Strict IOs Severe metabolic acidosis- resolved Hyperkalemia- resolved. Chronic anemia- likely secondary to chronic disease Septic Shock LLE osteomyelitis Pseudomonas bacteremia Gram Positive Bacteremia Pseudomonas osteomyelitis Fungal Urinary Tract Infection -Recommend transfusions of PRBCs to keep hemoglobin above 7 g percent. - ID following. - continue antibiotics per ID. Diabetes -Vitamin D deficiency. -- Patient had low vitamin D and was started on cholecalciferol. -- continue accu-check with sliding scale. hypertension-uncontrolled continue Procardia XL and metoprolol- will further increase hydralazine continue to monitor and adjust the regimen as needed. GI Prophylaxis pepcid DVT Prophylaxis -- SCDs Sub-cutaneous heparin Discharge Planning when cleared by ID and nephrology. Roseanna Murphy MD Nov 03, 2016 10:50
[2016-11-03] MEDS: hydrALAZINE HCL 100 MG TAB PO SCH ×2 (12:52→20:34)
[2016-11-03] MEDS: CEFEPIME INJ 1,000 MG in SODIUM CHLORIDE 0.9% INJ 100 ML IV SCH ×2 (15:36→18:46)
--- NOTE | 2016-11-03 15:46 | HHI.NPPN ---
Subjective General Problems: Anemia Renal Failure: Acute Interval History Creatinine is slightly worse. She is receiving nebulizer. (Lizy Pineda) Review of Systems General Constitutional: Fatigue (Lizy Pineda) Eyes Eyes: Itching (Lizy Pineda) Ears, Nose, & Throat ENT Remarks loss of appetite (Lizy Pineda) Respiratory Lungs: SOB (Lizy Pineda) Cardiovascular Cardiac: Edema (Lizy Pineda) Endocrine Endocrine: Thirst (Lizy Pineda) Skin Skin: Skin Rash, Ulcers Skin Remarks generalized rash with peeling skin; ulcer planter surface left foot (Lizy Pineda) Objective Data Data Vital Signs Date Time Temp Pulse Resp B/P (MAP) Pulse Ox O2 Delivery O2 Flow Rate FiO2 11/03/16 12:00 98.4 87 18 182/89 (120) 100 Automatic Cuff 11/03/16 11:18 Room Air 11/03/16 08:44 98 21 11/03/16 04:00 98.3 92 20 174/81 (112) 97 11/03/16 03:49 96 11/03/16 00:00 98.3 92 20 170/77 (108) 98 11/02/16 21:55 Room Air 11/02/16 20:00 88 11/02/16 20:00 98.1 68 20 168/72 (104) 98 11/02/16 16:00 97.7 86 20 181/77 (111) 96 (Lizy Pineda) -: 11/03/16 0649 11/03/16 0649 Tubes & Lines: Vas-Cath, Shah (Lizy Pineda) Physical Exam General Appearance: Well Developed, No Acute Distress, Comfortable, Obese (Lizy Pineda) Eyes Eye Exam: Pupils Equal (Lizy Pineda) Throat Throat Exam: Oral Mucosa [place] & Moist (Lizy Pineda) Neck Neck Exam: Neck Supple (Lizy Pineda) Pulmonary Resp Exam: Breath Sounds Equal, No Distress, Rhonchi, Decreased Bases (Lizy Pineda) Cardiology CV Exam: Regular, Normal Sinus Rhythm, Good Perfusion (Lizy Pineda) Gastrointestinal/Abdomen GI Exam: Soft, Non-Tender, Bowel Sounds Present (Lizy Pineda) Musculoskeletal MS Exam: Joints Intact, Normal Tone, Unable to Ambulate (Lizy Pineda) Integumentary Skin Exam: Warm, Dry, Intact Skin Remarks left foot ulcer skin is scaly (Lizy Pineda) Extremeties Extremities Exam: Pedal Pulses Palpable, Pitting Edema (Lizy Pineda) Neurologic Neuro Exam: Alert, Awake, Oriented, Speech Clear, Moving All Extremities (Lizy Pineda) Psychiatric Psych Exam: Appropriate Responses (Lizy Pineda) Assessment/Plan Discussed Condition With: Patient Assessment Summary: FREDI/Acute Renal Failure Problem List: (1) Acute renal failure ICD Codes: N17.9 - Acute kidney failure, unspecified Status: Acute Plan: She apparently has a baseline creatinine of 1mg/dL FREDI from [facility]N, secondary vancomycin induced nephrotoxicity, allergic interstitial nephritis. may also be due to sepsis HD initiated on 10/13/16, has been on TTS HD schedule Due to shortness of breath, we will dialyze her today Monitor urine output.Although accurate output may not be recorded. repeat labs in AM Avoid nephrotoxic agents. Avoid IVF. Await renal recovery. (2) Sepsis ICD Codes: A41.9 - Sepsis, unspecified organism Plan: + Pseudomonas in the blood, and gram stain of the wound. Currently on Cefepime (x 6 weeks) D/W ID, Midline placement okay (3) Metabolic acidosis ICD Codes: E87.2 - Acidosis Status: Acute Plan: Corrected, monitor (4) Anemia ICD Codes: D64.9 - Anemia Status: Acute Plan: Hb improved, monitor (5) Vitamin D deficiency ICD Codes: E55.9 - Vitamin D deficiency, unspecified Plan: replacement ordered (6) Itching ICD Codes: L29.9 - Pruritus, unspecified Plan: on Benadryl cream also Vistaril PRN with daily Claritin (Lizy Pindea) Plan patient was seen and examined. Dialysis was held on , but she appeared short of breath. Decision was taken to dialyze her. Agree with above assessment and plan. (Francisco Javier Quiros MD) Problem Qualifiers (1) Acute renal failure: Qualified Codes: N17.9 - Acute kidney failure, unspecified (2) Anemia: Qualified Codes: D64.9 - Anemia, unspecified Lizy Pineda Nov 03, 2016 15:46 Francisco Javier Quiros MD Nov 05, 2016 15:32
[2016-11-03] MEDS: HEPARIN SODIUM - IV 10,000 UNITS/10 ML VIAL PRN (17:23)
[2016-11-03] MEDS: GENTAMICIN SULFATE (DIALYSIS USE ONLY) 20 MG/2 ML VIAL IV PRN (17:23)
[2016-11-03] MEDS: SODIUM CHLOR 0.9% 1000 ML INJ 1,000 ML IV PRN (17:23)
[2016-11-03] MEDS: SODIUM CHLORIDE 0.9% FLUSH 10 ML FLUSH IV FLUSH SCH ×2 (18:52→20:35)
[2016-11-03] MEDS: hydrOXYzine HCL 25 MG TAB PO PRN (20:34)
[2016-11-03] MEDS: LACTIC ACID (AMMONIUM LACTATE) 12% LOTION 225 GM BTL TOPICAL SCH (20:35)
[2016-11-03] MEDS: CALAMINE LOTION 180 APPLIC/180 ML BTL TOPICAL PRN (20:36)
[2016-11-04] VITALS (9 sets, daily range): BP systolic 148–199; BP diastolic 70–98; PULSE 83–96; RESP 16–20; TEMP 98.4–98.9; O2SAT 93–100
[2016-11-04] MEDS: RESP: IPRATROPIUM 0.5 MG/2.5 ML NEB NEB SCH ×4 (03:25→20:40)
[2016-11-04] MEDS: hydrALAZINE HCL 20 MG/ML VIAL IV PUSH PRN ×3 (03:50→15:55)
[2016-11-04] MEDS: hydrALAZINE HCL 100 MG TAB PO SCH ×3 (05:52→22:00)
[2016-11-04] MEDS: INSULIN NovoLIN REGULAR SUPPLEMENTAL SCALE SQ SCH ×4 (05:53→17:26)
[2016-11-04] MEDS: CHLORHEXIDINE 0.12% (ORAL KIT) 15 ML CUP MT SCH ×2 (08:00→20:00)
[2016-11-04] MEDS: METOPROLOL TARTRATE 25 MG TAB PO SCH (09:00)
[2016-11-04] MEDS: FAMOTIDINE 20 MG TAB PO SCH ×2 (09:07→21:00)
[2016-11-04] MEDS: THIAMINE HCL 100 MG TAB PO SCH (09:07)
[2016-11-04] MEDS: DOCUSATE SODIUM 50 MG/SENNA 8.6 MG TAB PO SCH ×2 (09:07→21:00)
[2016-11-04] MEDS: NIFEdipine 60 MG SUSTAINED RELEASE TAB PO SCH (09:07)
[2016-11-04] MEDS: CHOLECALCIFEROL (VIT D3) 5000 UNIT CAP PO SCH (09:07)
[2016-11-04] MEDS: hydrOXYzine HCL 25 MG TAB PO PRN ×2 (09:07→22:47)
[2016-11-04] MEDS: LACTOBACILLUS ACIDOPHILUS TAB PO SCH ×3 (09:07→15:55)
[2016-11-04] MEDS: LACTIC ACID (AMMONIUM LACTATE) 12% LOTION 225 GM BTL TOPICAL SCH ×2 (09:07→21:00)
[2016-11-04] MEDS: LORATADINE 10 MG TAB PO SCH (09:07)
[2016-11-04] MEDS: SODIUM CHLORIDE 0.9% FLUSH 10 ML FLUSH IV FLUSH SCH ×2 (09:08→21:00)
--- NOTE | 2016-11-04 11:40 | HHI.PR ---
Subjective Remarks resting comfortably with no distress. denies pain. no new complaints. Objective Vitals Vital Signs Date Time Temp Pulse Resp B/P (MAP) Pulse Ox O2 Delivery O2 Flow Rate FiO2 11/04/16 08:00 98.7 96 20 174/82 (112) 93 11/04/16 07:58 94 21 11/04/16 04:00 Room Air 11/04/16 03:20 98.9 95 16 192/89 (123) 100 178/82 (114) 11/04/16 00:46 98.4 91 18 171/77 (108) 93 11/04/16 00:00 Room Air 11/03/16 23:32 98.5 90 16 134/61 (85) 92 11/03/16 20:45 Room Air 11/03/16 20:40 95 21 11/03/16 20:07 92 11/03/16 19:45 98.4 91 16 152/67 (95) 97 11/03/16 17:03 80 11/03/16 16:00 98.7 88 18 165/79 (107) 98 11/03/16 12:00 98.4 87 18 182/89 (120) 100 Automatic Cuff I/O 11/03/16 11/03/16 11/03/16 11/04/16 11/04/16 11/04/16 07:00 15:00 23:00 07:00 15:00 23:00 Intake Total 450 ml 0 ml Output Total 3000 ml 0 ml Balance -2550 ml 0 ml Intake Oral 450 ml 0 ml Output Urine Total 0 ml Hemodialysis 3000 ml # Voids 1 # Bowel Movements 0 0 Result Diagram: 11/03/16 0649 11/03/16 0649 Imaging Last Impressions Liver Ultrasound 10/23/16 0000 Signed Impressions: Service Date/Time: Sunday, October 23, 2016 09:45 - CONCLUSION: 1. Gallbladder sludge 2. No evidence of biliary duct dilatation 3. Otherwise unremarkable exam. Jaiden Weston MD Head CT 10/19/16 1700 Signed Impressions: Service Date/Time: October 17:01 - CONCLUSION: No acute intracranial findings Ricco Kulkarni MD Head Magnetic Resonance Angiography 10/18/16 0000 Signed Impressions: Service Date/Time: Tuesday, October 18, 2016 16:23 - CONCLUSION: Normal examination. Ricco Kulkarni MD Chest X-Ray 10/18/16 Signed Impressions: Service Date/Time: Tuesday, October 18, 2016 14:59 - CONCLUSION: 1. Mild to moderate pulmonary vascular congestion. 2. Cardiomegaly. 3. Elevation of the right hemidiaphragm. 4. Endotracheal tube in good position 3 cm above the elsie. 5. Left internal jugular VasCath and left subclavian central line are stable in positions. Raymond Smith MD Brain MRI 10/18/16 Signed Impressions: Service Date/Time: Tuesday, October 18, 2016 16:11 - CONCLUSION: Nonspecific white matter signal change in the left frontal region. No evidence of acute stroke. Ricco Kulkarni MD Ankle X-Ray 10/14/16 Signed Impressions: Service Date/Time: Friday, October 14, 2016 17:01 - CONCLUSION: Marked soft tissue swelling with subcutaneous calcifications. Negative for fracture. Roman Montiel MD FACR Upper Extremity Ultrasound 10/13/16 Signed Impressions: Service Date/Time: Thursday, October 13, 2016 09:17 - CONCLUSION: 1. No DVT. 2. Subcutaneous edema observed. Wilner Potter Jr., MD Lower Extremity Ultrasound 10/13/16 Signed Impressions: Service Date/Time: Thursday, October 13, 2016 08:57 - CONCLUSION: 1. Study has some limitations as detailed above. No DVT observed. Wilner Potter Jr., MD Lower Extremity CT 10/13/16 Signed Impressions: Service Date/Time: Thursday, October 13, 2016 21:35 - CONCLUSION: Ulcer at the region of the base of the fifth metatarsal. There appears to be chronic and acute changes in this region. The acute changes are worrisome for osteomyelitis at the base of the fifth metatarsal. Ricco Fuentes MD Chest CT 10/13/16 Signed Impressions: Service Date/Time: Thursday, October 13, 2016 21:27 - CONCLUSION: 1. Patchy areas of consolidation seen bilaterally being worse on the right. These could represent areas of inflammatory/infectious disease. Focal round lesions to suggest septic emboli are not clearly identified. 2. Edema seen at the right superficial chest and abdomen regions. The cause of for this asymmetric edema is not known. 3. Mild ascites. Ricco Fuentes MD Abdomen CT 10/13/16 0000 Signed Impressions: Service Date/Time: Thursday, October 13, 2016 21:27 - CONCLUSION: 1. Mild ascites seen around the liver. 2. Superficial edema seen bilaterally in the subcutaneous tissues. This is asymmetric and being much more prominent on the right. 3. Small area of increased density seen independently in the gallbladder representing either small gallstones or milk of calcium. Ricco Fuentes MD Renal Ultrasound 10/12/16 0000 Signed Impressions: Service Date/Time: September 20:54 - CONCLUSION: Normal appearance of the kidneys. Ricco Fuentes MD Objective Remarks GENERAL: This is a well-nourished, well-developed patient, in no apparent distress. CARDIOVASCULAR: Regular rate and regular rhythm without murmurs, gallops, or rubs. RESPIRATORY: Clear to auscultation. Breath sounds equal bilaterally. No wheezes , rales, or rhonchi. GASTROINTESTINAL: Abdomen soft, non-tender, nondistended. Normal, active bowel sounds MUSCULOSKELETAL: Extremities without clubbing, cyanosis, or edema. NEURO: Alert & Oriented x4 to person, place, time, situation. Moves all ext x4 Medications and IVs Current Medications Sodium Chloride 1,000 ml @ 999 mls/hr BOLUS ONCE IV Last administered on 10/12 18:59; Start 10/12/16 at 18:15; Stop 10/12/16 at 19:15; Status DC Sodium Bicarbonate 150 meq/Sterile Water 1,000 ml @ 100 mls/hr Q10H IV Last administered on 10/12/16 23:39; Start 10/12/16 at 20:15; Stop 10/13/16 at 05:52 ; Status DC Sodium Chloride (NS Flush) 2 ml UNSCH PRN IV FLUSH FLUSH AFTER USING IV ACCESS ; Start 10/12/16 at 20:15 Sodium Chloride (NS Flush) 2 ml BID IV FLUSH Last administered on 11/04/16 09: 08; Start 10/12/16 at 21:00 Heparin Sodium (Porcine) (Heparin Inj) 5,000 units Q8H SQ Last administered on 10/18/16 12:42; Start 10/13/16 at 06:00; Stop 10/18/16 at 15:57; Status DC Naloxone HCl (Narcan Inj) 0.4 mg UNSCH PRN IV SEE LABEL COMMENTS; Start at 20:15 Calcium Gluconate (Calcium Gluconate Inj) 1 gm ONCE ONCE IV PUSH ; Start at 20:15; Stop 10/12/16 at 21:51; Status DC Insulin Human Regular (NovoLIN R INJ) 10 units ONCE ONCE IV PUSH Last administered on 10/12/16 23:54; Start 10/12/16 at 20:15; Stop 10/12/16 at 21:53 ; Status DC Dextrose (D50w (Syr) Inj) 50 ml ONCE ONCE IV PUSH Last administered on 23:53; Start 10/12/16 at 20:15; Stop 10/12/16 at 21:52; Status DC Sodium Polystyrene Sulfonate (Kayexalate Liq) 30 gm ONCE ONCE PO Last administered on 10/12/16 23:40; Start 10/12/16 at 20:15; Stop 10/12/16 at 21:54 ; Status DC Dextrose (D50w (Vial) Inj) 50 ml UNSCH PRN IV HYPOGLYCEMIA-SEE COMMENTS; Start 10/12/16 at 20:15; Stop 10/13/16 at 07:33; Status DC Glucagon (Glucagon Inj) 1 mg UNSCH PRN OTHER HYPOGLYCEMIA-SEE COMMENTS; Start 10/12/16 at 20:15 Insulin Aspart (NovoLOG SUPPLEMENTAL SCALE) 1 ACHS SLIDING SCALE SQ ; Start at 21:00; Stop 10/13/16 at 07:30; Status DC Calcium Gluconate 1 gm/Sodium Chloride 110 ml @ 110 mls/hr ONCE ONCE IV Last administered on 10/12/16 23:54; Start 10/12/16 at 23:00; Stop 10/12/16 at 23:59 ; Status DC Ipratropium Maspeth (Atrovent Neb) 0.5 mg Q6HR NEB NEB Last administered on 07:56; Start 10/13/16 at 04:00 Ipratropium Maspeth (Atrovent Neb) 0.5 mg Q2HR NEB PRN NEB wheezing; Start 10/13 at 00:45 Amitriptyline HCl (Elavil) 50 mg HS PO ; Start 10/13/16 at 21:00; Stop 10/13/16 at 21:00; Status DC Hydralazine HCl (Apresoline) 100 mg TID PO ; Start 10/13/16 at 09:00; Stop at 09:00; Status DC Insulin Detemir (Levemir Inj) 20 units AC BREAKFAST SQ ; Start 10/13/16 at 07:00 ; Stop 10/13/16 at 07:00; Status DC Insulin Detemir (Levemir Inj) 25 units HS SQ ; Start 10/13/16 at 21:00; Stop 10/13 at 21:00; Status DC Labetalol HCl (Trandate) 200 mg TID PO ; Start 10/13/16 at 09:00; Stop 10/13/16 at 09:00; Status DC Lactobacillus Acidophilus (Lactinex) 1 tab TIDAC PO Last administered on t 09:07; Start 10/13/16 at 08:00 Loratadine (Claritin) 10 mg DAILY PO ; Start 10/13/16 at 09:00; Stop 10/13/16 at 09:00; Status DC Montelukast Sodium (Singulair) 10 mg HS PO ; Start 10/13/16 at 21:00; Stop at 21:00; Status DC Nifedipine (Procardia Xl) 60 mg TID PO ; Start 10/13/16 at 09:00; Stop 10/13/16 at 09:00; Status DC Pravastatin Sodium (Pravachol) 40 mg DAILY PO ; Start 10/13/16 at 09:00; Stop 10/13/16 at 09:00; Status DC Sodium Chloride 1,000 ml @ 999 mls/hr BOLUS ONCE IV Last administered on t 05:42; Start 10/13/16 at 04:45; Stop 10/13/16 at 05:45; Status DC Sodium Bicarbonate 150 meq/Dextrose 1,150 ml @ 75 mls/hr [id number] IV ; Start 10/13/16 at 08:00; Stop 10/13/16 at 08:00; Status DC Norepinephrine Bitartrate 250 ml @ As Directed STK-MED ONCE IV ; Start 10/13/16 at 07:25; Stop 10/13/16 at 07:26; Status DC Norepinephrine Bitartrate 250 ml @ 7.5 mls/hr TITRATE PRN IV Blood pressure management; Start 10/13/16 at 07:30; Status UNV Terbutaline Sulfate (Brethine Inj) 1 mg UNSCH PRN SQ For Extravasation; Start 10/13/16 at 07:30; Stop 10/28/16 at 11:24; Status DC Sodium Bicarbonate (Sodium Bicarbonate 8.4% Inj) 200 meq ONCE ONCE IV PUSH Last administered on 10/13/16 07:30; Start 10/13/16 at 07:30; Stop 10/13/16 at 07: 35; Status DC Dextrose (D50w (Vial) Inj) 25 ml UNSCH PRN IV PUSH HYPOGLYCEMIA-SEE COMMENTS; Start 10/13/16 at 07:30 Insulin Human Regular (NovoLIN R SUPPLEMENTAL SCALE) 1 Q6HR SQ Last administered on 10/26/16 12:00; Start 10/13/16 at 12:00 Linezolid 300 ml @ 300 mls/hr Q12H IV ; Start 10/13/16 at 08:00; Stop 10/13/16 at 08:07; Status DC Piperacillin Sod/ Tazobactam Sod 50 ml @ 100 mls/hr Q8H IV Last administered on 10/13/16 09:07; Start 10/13/16 at 09:00; Stop 10/13/16 at 14:13; Status DC Norepinephrine Bitartrate 16 mg/ Dextrose 250 ml @ 1.87 mls/hr TITRATE PRN IV Maintain MAP > 65 mmHg; Start 10/13/16 at 08:00; Stop 10/28/16 at 11:24; Status DC Epinephrine HCl 2 mg/Dextrose 252 ml @ 15.12 mls/ hr TITRATE PRN IV Blood Pressure Management; Start 10/13/16 at 08:15; Stop 10/13/16 at 08:47; Status DC Ketamine HCl (Ketalar Inj) 50 mg STAT ONCE IV PUSH ; Start 10/13/16 at 08:15; Stop 10/13/16 at 08:33; Status DC Midazolam HCl (Versed Inj) 2 mg STAT ONCE IV PUSH ; Start 10/13/16 at 08:15; Stop 10/13/16 at 08:31; Status DC Clindamycin Phosphate 900 mg/ Sodium Chloride 106 ml @ 212 mls/hr Q8H IV Last administered on 10/13/16 09:07; Start 10/13/16 at 09:00; Stop 10/13/16 at 13:55; Status DC Epinephrine HCl 8 mg/Dextrose 250 ml @ 5.62 mls/hr TITRATE PRN IV Blood Pressure Management Last administered on 10/13/16 09:07; Start 10/13/16 at 09:00 ; Stop 10/28/16 at 11:24; Status DC Sodium Bicarbonate (Sodium Bicarbonate 8.4% Inj) 200 meq ONCE ONCE IV PUSH Last administered on 10/13/16 11:43; Start 10/13/16 at 11:30; Stop 10/13/16 at 11: 31; Status DC Etomidate (Amidate Inj) 20 mg ONCE ONCE IV PUSH ; Start 10/13/16 at 13:15; Stop 10/13/16 at 14:37; Status DC Midazolam HCl (Versed Inj) 5 mg ONCE ONCE IV PUSH Last administered on 13:15; Start 10/13/16 at 13:15; Stop 10/13/16 at 14:37; Status DC Rocuronium Maspeth (Zemuron Inj) 100 mg BOLUS ONCE IV Last administered on 10/13 13:15; Start 10/13/16 at 13:15; Stop 10/13/16 at 14:37; Status DC Midazolam HCl (Versed Inj) 5 mg STK-MED ONCE .ROUTE Last administered on 13:20; Start 10/13/16 at 13:20; Stop 10/13/16 at 13:21; Status DC Micafungin Sodium 150 mg/Sodium Chloride 100 ml @ 100 mls/hr Q24H IV Last administered on 10/16/16 16:12; Start 10/13/16 at 17:00; Stop 10/16/16 at 17:40; Status DC Daptomycin 1000 mg/Sodium Chloride 100 ml @ 200 mls/hr Q48H IV Last administered on 10/27/16 16:58; Start 10/13/16 at 16:00; Stop 10/30/16 at 15:59 ; Status DC Cefepime HCl 1000 mg/Sodium Chloride 100 ml @ 200 mls/hr Q24H IV Last administered on 11/03/16 18:46; Start 10/13/16 at 15:00 Metronidazole 100 ml @ 100 mls/hr Q8H IV Last administered on 10/16/16 15:13; Start 10/13/16 at 16:00; Stop 10/16/16 at 17:40; Status DC Propofol 100 ml @ As Directed STK-MED ONCE .ROUTE ; Start 10/13/16 at 15:31; Stop 10/13/16 at 15:32; Status DC Sodium Chloride 1,000 ml @ 0 mls/hr Q0M PRN OTHER For Prime & Rinse Back Last administered on 10/21/16 10:43; Start 10/13/16 at 15:54 Heparin Sodium (Porcine) (Heparin Inj) 8,000 units UNSCH PRN IVF WITH DIALYSIS ; Start 10/13/16 at 16:00 Sodium Chloride 1,000 ml @ 200 mls/hr Q5H PRN IV WITH DIALYSIS Last administered on 11/03/16 17:23; Start 10/13/16 at 15:54 Sodium Chloride 1,000 ml @ 0 mls/hr Q0M PRN OTHER WITH DIALYSIS; Start 10/13/16 at 15:54 Mannitol (Mannitol Inj) 12.5 gm UNSCH PRN IV WITH DIALYSIS; Start 10/13/16 at 16 :00 Albumin Human (Albumin 25% Inj) 25 gm UNSCH PRN IV WITH DIALYSIS Last administered on 10/14/16 08:19; Start 10/13/16 at 16:00 Sodium Chloride (NS Flush) 5 ml UNSCH PRN IV FLUSH WITH DIALYSIS Last administered on 10/21/16 10:42; Start 10/13/16 at 16:00 Heparin Sodium (Porcine) (Heparin Inj) UNSCH PRN .XX WITH DIALYSIS Last administered on 11/03/16 17:23; Start 10/13/16 at 16:00 Gentamicin Sulfate (Gentamicin (Dialysis) Inj) 20 mg UNSCH PRN IV WITH DIALYSIS Last administered on 11/03/16 17:23; Start 10/13/16 at 16:00 Ondansetron HCl (Zofran Inj) 4 mg UNSCH PRN IV WITH DIALYSIS; Start 10/13/16 at 16:00 Acetaminophen (Tylenol) 650 mg UNSCH PRN PO for headach, pain, temp > 101F Last administered on 10/21/16 20:36; Start 10/13/16 at 16:00 Diphenhydramine HCl (Benadryl) 25 mg UNSCH PRN PO for hives/itching/ anaphylaxis Last administered on 10/28/16 06:35; Start 10/13/16 at 16:00; Stop 11/01/16 at 11:23; Status DC Nitroglycerin (Nitrostat Sl) 0.4 mg UNSCH PRN SL CHEST PAIN; Start 10/13/16 at 16:00 Clonidine (Catapres) 0.1 mg UNSCH PRN PO for BP > 180/100 X 2 readings Last administered on 10/29/16 16:52; Start 10/13/16 at 16:00; Stop 10/29/16 at 20:11 ; Status DC Gelatin (Gelfoam 12 Mm/7 Mm Top) 1 foam UNSCH PRN TOP SEE LABEL COMMENTS Last administered on 10/15/16 10:39; Start 10/13/16 at 16:00 Propofol 100 ml @ As Directed STK-MED ONCE .ROUTE ; Start 10/13/16 at 18:39; Stop 10/13/16 at 18:40; Status DC Propofol 100 ml @ 4.128 mls/ hr TITRATE PRN IV SEDATION Last administered on 13:36; Start 10/13/16 at 19:15; Stop 10/28/16 at 11:24; Status DC Famotidine (Pepcid Liq) 20 mg BID NG Last administered on 10/15/16 09:19; Start 10/14/16 at 21:00; Stop 10/15/16 at 10:04; Status DC Silver Nitrate/ Potassium Nitrate (Silver Nitrate Applicators) 1 appl UNSCH X1 ONCE TOPICAL Last administered on 10/15/16 09:19; Start 10/15/16 at 09:00; Stop 10/15/16 at 09:01; Status DC Famotidine (Pepcid Liq) 10 mg BID NG Last administered on 10/21/16 09:00; Start 10/15/16 at 21:00; Stop 10/21/16 at 20:09; Status DC Diphenhydramine HCl (Benadryl) 25 mg BID PO Last administered on 10/17/16 08:55 ; Start 10/15/16 at 21:00; Stop 10/17/16 at 09:01; Status DC Dexamethasone Sodium Phosphate (Decadron Inj) 4 mg Q6HR IV PUSH Last administered on 10/16/16 17:57; Start 10/16/16 at 10:00; Stop 10/16/16 at 18:01; Status DC Hydralazine HCl (Apresoline Inj) 20 mg Q3H PRN IV PUSH SBP > 170 Last administered on 11/04/16 03:50; Start 10/16/16 at 15:45 Labetalol HCl (Trandate Inj) 20 mg Q3H PRN IV PUSH SBP > 160 Last administered on 11/01/16 12:39; Start 10/16/16 at 15:45 Atropine Sulfate (Atropine Inj) 1 mg STK-MED ONCE IV ; Start 10/13/16 at 05:00; Stop 10/17/16 at 11:07; Status DC Sodium Bicarbonate (Sodium Bicarbonate 8.4% Inj) 50 meq STK-MED ONCE IV ; Start 10/13/16 at 05:00; Stop 10/17/16 at 11:08; Status DC Sodium Chloride 250 ml @ 15 mls/hr ONCE ONCE IV ; Start 10/18/16 at 09:30; Stop 10/19/16 at 02:09; Status DC Epinephrine HCl (EPINEPHrine (1:10,000) INJ) 1 mg STK-MED ONCE .ROUTE ; Start at 14:51; Stop 10/18/16 at 14:52; Status DC Alteplase, Recombinant (Activase Bolus) 9 mg ONCE ONCE IV Last administered on 10/18/16 16:00; Start 10/18/16 at 16:00; Stop 10/18/16 at 16:03; Status DC Alteplase, Recombinant 81 mg/ Syringe / Bag 81 ml @ 81 mls/hr ONCE ONCE IV Last administered on 10/18/16 16:01; Start 10/18/16 at 16:00; Stop 10/18/16 at 16: 59; Status DC Sodium Chloride (NS Inj) 30 ml ONCE ONCE IVF Last administered on 10/18/16 16: 00; Start 10/18/16 at 16:00; Stop 10/18/16 at 16:02; Status DC Miscellaneous Information No Heparin, Warfarin, Aspir... UNSCH PRN XX SEE DOSE INSTRUCTIONS; Start 10/18/16 at 16:00; Stop 10/19/16 at 15:59; Status DC Micafungin Sodium 150 mg/Sodium Chloride 100 ml @ 100 mls/hr Q24H IV Last administered on 10/18/16 18:32; Start 10/18/16 at 18:00; Stop 10/19/16 at 14:43; Status DC Chlorhexidine Gluconate (Peridex 0.12% Liq) 15 ml BID@08,20 MT Last administered on 10/28/16 10:50; Start 10/18/16 at 20:00 Dexamethasone Sodium Phosphate (Decadron Inj) 4 mg STAT ONCE IV PUSH Last administered on 10/19/16 11:50; Start 10/19/16 at 11:15; Stop 10/19/16 at 11:16; Status DC Racepinephrine (Racepinephrine 2.25% Neb) 0.5 ml STK-MED ONCE .ROUTE ; Start 10/19/16 at 13:19; Stop 10/19/16 at 13:20; Status DC Diphenhydramine HCl (Benadryl) 25 mg Q6H PRN PO ITCHING Last administered on 11:57; Start 10/21/16 at 15:30; Stop 10/23/16 at 10:29; Status DC Famotidine (Pepcid) 10 mg BID PO Last administered on 11/04/16 09:07; Start at 21:00 Calamine (Calamine Lotion) 1 applic Q6H PRN TOPICAL irritated skin Last administered on 11/03/16 20:36; Start 10/21/16 at 22:30 Thiamine HCl (Vitamin B1) 100 mg DAILY PO Last administered on 11/04/16 09:07 ; Start 10/23/16 at 09:00 Diphenhydramine HCl (Benadryl) 50 mg Q6H PRN PO ITCHING Last administered on 05:33; Start 10/23/16 at 15:30; Stop 11/01/16 at 11:23; Status DC Senna/Docusate Sodium (Maira-Colace) 2 tab ONCE ONCE PO Last administered on 12:11; Start 10/23/16 at 10:30; Stop 10/23/16 at 11:05; Status DC Magnesium Hydroxide (Milk Of Lion Liq) 30 ml ONCE ONCE PO Last administered on 10/23/16 12:11; Start 10/23/16 at 10:30; Stop 10/23/16 at 11:06 ; Status DC Senna/Docusate Sodium (Maira-Colace) 1 tab BID PO Last administered on 09:07; Start 10/23/16 at 21:00 Lactic Acid (Lac-Hydrin 12% Lotion) 1 applic BID TOPICAL Last administered on 09:07; Start 10/23/16 at 21:00 Cholecalciferol (Vitamin D3) 5,000 units DAILY PO Last administered on 09:07; Start 10/24/16 at 09:00 Cholecalciferol (Vitamin D3) 10,000 units ONCE ONCE PO Last administered on 18:06; Start 10/23/16 at 17:45; Stop 10/23/16 at 17:46; Status DC Senna/Docusate Sodium (Maira-Colace) 1 tab BID PO ; Start 10/24/16 at 21:00; Stop 10/24/16 at 21:00; Status DC Fluconazole (Diflucan) 100 mg Q48H PO Last administered on 10/30/16 18:01; Start 10/24/16 at 17:00; Stop 10/30/16 at 18:24; Status DC Hydralazine HCl (Apresoline) 25 mg Q12HR PO Last administered on 10/28/16 10: 48; Start 10/26/16 at 11:30; Stop 10/28/16 at 13:51; Status DC Diphenhydramine HCl (Benadryl 2% Cream) APPLY TO AFFECTED AREA Q4H PRN TOPICAL ITCHING; Start 10/27/16 at 17:30 Nifedipine (Procardia Xl) 30 mg ONCE ONCE PO Last administered on 10/28/16 18 :37; Start 10/28/16 at 14:30; Stop 10/28/16 at 14:31; Status DC Hydralazine HCl (Apresoline) 25 mg Q8H PO Last administered on 10/31/16 08:25 ; Start 10/28/16 at 16:00; Stop 10/31/16 at 10:30; Status DC Multi-Ingredient Ointment (Eucerin Cream) 1 applic Q6H PRN TOPICAL DRY SKIN Last administered on 10/30/16 13:50; Start 10/29/16 at 12:15 Nifedipine (Procardia Xl) 30 mg DAILY PO Last administered on 11/01/16 09:28; Start 10/29/16 at 12:15; Stop 11/01/16 at 12:00; Status DC Clonidine (Catapres) 0.1 mg Q8H PRN PO for BP > 180/100 X 2 readings Last administered on 10/29/16 21:45; Start 10/29/16 at 20:15 Metoprolol Tartrate (Lopressor) 25 mg DAILY PO Last administered on 11/04/16 09:00; Start 10/30/16 at 10:00 Potassium Chloride (KCl) 30 meq ONCE ONCE PO Last administered on 10/30/16 13 :40; Start 10/30/16 at 11:45; Stop 10/30/16 at 11:46; Status DC Potassium Chloride (KCl) 20 meq ONCE ONCE PO Last administered on 10/30/16 18 :01; Start 10/30/16 at 14:30; Stop 10/30/16 at 14:31; Status DC Hydralazine HCl (Apresoline) 50 mg Q8HR PO Last administered on 11/02/16 05:12 ; Start 10/31/16 at 14:00; Stop 11/02/16 at 10:25; Status DC Hydroxyzine HCl (Atarax) 25 mg Q6H PRN PO ITCHING Last administered on 09:07; Start 11/01/16 at 11:30 Loratadine (Claritin) 10 mg DAILY PO Last administered on 11/04/16 09:07; Start 11/01/16 at 11:30 Nifedipine (Procardia Xl) 60 mg DAILY PO Last administered on 11/04/16 09:07; Start 11/02/16 at 09:00 Hydralazine HCl (Apresoline) 75 mg Q8HR PO Last administered on 11/03/16 05:30 ; Start 11/02/16 at 14:00; Stop 11/03/16 at 10:51; Status DC Hydralazine HCl (Apresoline) 100 mg Q8HR PO Last administered on 11/04/16t 05: 52; Start 11/03/16 at 14:00 A/P Assessment and Plan A/P Suspected stroke alert with acute change in neurologic status 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 Patient was administered IV thrombolysis following evaluation by neurology Dr. Burton in view of concern for brain stem CVA while awaiting MRI brain on 10/18. Subsequently MRI/MRA brain unremarkable. - Urine tox screen came back positive for benzodiazepines placing concern for surreptitious benzodiazepine use as she does not have any benzodiazepine listed on her APR. non-sustained V-tach started on lopressor- echo with EF 60%. continue to monitor. Obesity Hypoventilation Syndrome COPD Sleep Apnea Acute hypoxic and hypercarbic respiratory failure- persistent, no improvement. Pulmonary Edema - intubated and then extubated 10/16. -Emergently intubated on 10/18 for airway protection due to altered mental status. Extubated on 10/19- now stable. Septic Shock- resolving. pseudomonas bacteremia Severe Tricuspid Regurgitation IV antibiotics per ID recommendations; on Cefepime. Acute kidney injury requiring renal replacement therapy - nephrology following - HD per nephrology; awaiting renal recovery. -monitor the renal function. -- Strict IOs Chronic anemia- likely secondary to chronic disease LLE osteomyelitis Pseudomonas bacteremia Gram Positive Bacteremia Pseudomonas osteomyelitis Fungal Urinary Tract Infection -Recommend transfusions of PRBCs to keep hemoglobin above 7 g percent. - ID following. - continue antibiotics per ID. Diabetes -Vitamin D deficiency. -- Patient had low vitamin D and was started on cholecalciferol. -- continue accu-check with sliding scale. hypertension-uncontrolled increase Procardia XL and continue metoprolol and hydralazine continue to monitor and adjust the regimen as needed. GI Prophylaxis pepcid DVT Prophylaxis -- SCDs Sub-cutaneous heparin Discharge Planning when cleared by ID and nephrology. Roseanna Murphy MD Nov 04, 2016 11:40
[2016-11-04] MEDS ORDERED: NIFEdipine 30 MG SUSTAINED RELEASE TAB PO ONE (11:45)
[2016-11-04] MEDS: CEFEPIME INJ 1,000 MG in SODIUM CHLORIDE 0.9% INJ 100 ML IV SCH (15:00)
--- NOTE | 2016-11-04 16:44 | HHI.NPPN ---
Subjective General Problems: Anemia Renal Failure: Acute Additional Remarks Patient is alert, no SOB, on room air, no nausea. Review of Systems General Constitutional: Fatigue Eyes Eyes: Itching Ears, Nose, & Throat ENT Remarks loss of appetite Respiratory Lungs: SOB Cardiovascular Cardiac: Edema Endocrine Endocrine: Thirst Skin Skin: Skin Rash, Ulcers Skin Remarks generalized rash with peeling skin; ulcer planter surface left foot Objective Data Data Vital Signs Date Time Temp Pulse Resp B/P (MAP) Pulse Ox O2 Delivery O2 Flow Rate FiO2 11/04/16 14:57 Room Air 11/04/16 14:57 87 11/04/16 12:00 98.4 86 18 199/98 (131) 95 11/04/16 08:00 98.7 96 20 174/82 (112) 93 11/04/16 07:58 94 21 11/04/16 04:00 Room Air 11/04/16 03:20 98.9 95 16 192/89 (123) 100 178/82 (114) 11/04/16 00:46 98.4 91 18 171/77 (108) 93 11/04/16 00:00 Room Air 11/03/16 23:32 98.5 90 16 134/61 (85) 92 11/03/16 20:45 Room Air 11/03/16 20:40 95 21 11/03/16 20:07 92 11/03/16 19:45 98.4 91 16 152/67 (95) 97 11/03/16 17:03 80 -: 11/03/16 0649 11/03/16 0649 Tubes & Lines: Vas-Cath, Shah Physical Exam General Appearance: No Acute Distress, Comfortable, Obese Eyes Eye Exam: Pupils Equal Throat Throat Exam: Oral Mucosa [place] & Moist Neck Neck Exam: Neck Supple Pulmonary Resp Exam: Breath Sounds Equal, No Distress, Rhonchi, Decreased Bases Cardiology CV Exam: Regular, Normal Sinus Rhythm, Good Perfusion Gastrointestinal/Abdomen GI Exam: Soft, Non-Tender, Bowel Sounds Present Musculoskeletal MS Exam: Joints Intact, Normal Tone, Unable to Ambulate Integumentary Skin Exam: Warm, Dry, Intact Extremeties Extremities Exam: Moderate Edema, Pitting Edema Neurologic Neuro Exam: Alert, Awake, Oriented Psychiatric Psych Exam: Appropriate Responses Assessment/Plan Discussed Condition With: Patient Assessment Summary: FREDI/Acute Renal Failure Problem List: (1) Acute renal failure ICD Codes: N17.9 - Acute kidney failure, unspecified Status: Acute Plan: She apparently has a baseline creatinine of 1mg/dL FREDI from ATN, secondary vancomycin induced nephrotoxicity, allergic interstitial nephritis. may also be due to sepsis HD initiated on 10/13/16, has been on TTS HD schedule Due to shortness of breath, we will dialyze her today Monitor urine output.Although accurate output may not be recorded. repeat labs in AM Avoid nephrotoxic agents. Avoid IVF. Await renal recovery. Creatinine was 4.1 yesterday, no BMP today. Check BMP in AM. BP is elevated, started on Nifedipine , Hydralazine was increased. (2) Sepsis ICD Codes: A41.9 - Sepsis, unspecified organism Plan: + Pseudomonas in the blood, and gram stain of the wound. Currently on Cefepime (x 6 weeks) D/W ID, Midline placement okay (3) Metabolic acidosis ICD Codes: E87.2 - Acidosis Status: Acute Plan: Corrected, monitor (4) Anemia ICD Codes: D64.9 - Anemia Status: Acute Plan: Hb improved, monitor (5) Vitamin D deficiency ICD Codes: E55.9 - Vitamin D deficiency, unspecified Plan: replacement ordered (6) Itching ICD Codes: L29.9 - Pruritus, unspecified Plan: on Benadryl cream also Vistaril PRN with daily Claritin Problem Qualifiers (1) Acute renal failure: Qualified Codes: N17.9 - Acute kidney failure, unspecified (2) Anemia: Qualified Codes: D64.9 - Anemia, unspecified Zi Kemp MD Nov 04, 2016 16:44
[2016-11-04] MEDS: EUCERIN CREAM 120 GM JAR TOPICAL PRN (22:47)
[2016-11-05] VITALS (8 sets, daily range): BP systolic 165–189; BP diastolic 78–97; PULSE 85–98; RESP 18; TEMP 97.9–98.9; O2SAT 95–100
[2016-11-05] MEDS: RESP: IPRATROPIUM 0.5 MG/2.5 ML NEB NEB SCH ×4 (02:32→21:20)
[2016-11-05] MEDS: hydrALAZINE HCL 100 MG TAB PO SCH ×3 (05:09→22:53)
[2016-11-05] MEDS: hydrOXYzine HCL 25 MG TAB PO PRN ×2 (05:09→20:28)
[2016-11-05] MEDS: INSULIN NovoLIN REGULAR SUPPLEMENTAL SCALE SQ SCH ×4 (05:49→17:56)
[2016-11-05 08:52] LABS: BICARBONATE 26.5 MEQ/L (21.0-32.0)
[2016-11-05] MEDS ORDERED: NIFEdipine 90 MG SUSTAINED RELEASE TAB PO SCH (09:00)
[2016-11-05] MEDS: LACTIC ACID (AMMONIUM LACTATE) 12% LOTION 225 GM BTL TOPICAL SCH ×2 (09:00→20:28)
[2016-11-05] MEDS: SODIUM CHLORIDE 0.9% FLUSH 10 ML FLUSH IV FLUSH SCH ×2 (09:00→20:27)
[2016-11-05 09:07] LABS: POTASSIUM 3.5 MEQ/L (3.5-5.1)
[2016-11-05] MEDS: CHOLECALCIFEROL (VIT D3) 5000 UNIT CAP PO SCH (10:02)
[2016-11-05] MEDS: METOPROLOL TARTRATE 25 MG TAB PO SCH (10:03)
[2016-11-05] MEDS: LORATADINE 10 MG TAB PO SCH (10:03)
[2016-11-05] MEDS: LACTOBACILLUS ACIDOPHILUS TAB PO SCH ×3 (10:03→18:41)
[2016-11-05] MEDS: THIAMINE HCL 100 MG TAB PO SCH (10:03)
[2016-11-05] MEDS: FAMOTIDINE 20 MG TAB PO SCH ×2 (10:03→20:28)
[2016-11-05] MEDS: DOCUSATE SODIUM 50 MG/SENNA 8.6 MG TAB PO SCH ×2 (10:04→20:28)
--- NOTE | 2016-11-05 10:47 | HHI.PR ---
Subjective Remarks resting comfortably with no distress. denies pain. no fever. no new complaints. Objective Vitals Vital Signs Date Time Temp Pulse Resp B/P (MAP) Pulse Ox O2 Delivery O2 Flow Rate FiO2 11/05/16 08:00 98.0 98 18 182/93 (122) 100 Manual Cuff/Auscultation 11/05/16 07:49 97 21 11/05/16 04:00 98.2 97 18 185/97 (126) 99 11/05/16 04:00 Room Air 11/05/16 00:00 Room Air 11/05/16 00:00 98.9 98 18 165/78 (107) 98 11/04/16 20:42 93 21 11/04/16 20:00 98.4 91 16 148/70 (96) 97 11/04/16 20:00 90 11/04/16 20:00 Room Air 11/04/16 16:00 98.4 83 20 187/88 (121) 94 11/04/16 14:57 Room Air 11/04/16 14:57 87 11/04/16 12:00 98.4 86 18 199/98 (131) 95 I/O 11/04/16 11/04/16 11/04/16 11/05/16 11/05/16 11/05/16 07:00 15:00 23:00 07:00 15:00 23:00 Intake Total 0 ml 580 ml 210 ml Output Total 0 ml Balance 0 ml 580 ml 210 ml Intake Oral 0 ml 480 ml 210 ml IV Total 100 ml Output Urine Total 0 ml # Voids 1 # Bowel Movements 0 0 Result Diagram: 11/03/16 0649 11/05/16 0703 Imaging Last Impressions Liver Ultrasound 10/23/16 0000 Signed Impressions: Service Date/Time: Sunday, October 23, 2016 09:45 - CONCLUSION: 1. Gallbladder sludge 2. No evidence of biliary duct dilatation 3. Otherwise unremarkable exam. Jaiden Weston MD Head CT 10/19/16 1700 Signed Impressions: Service Date/Time: October 17:01 - CONCLUSION: No acute intracranial findings Ricco Kulkarni MD Head Magnetic Resonance Angiography 10/18/16 0000 Signed Impressions: Service Date/Time: Tuesday, October 18, 2016 16:23 - CONCLUSION: Normal examination. Ricco Kulkarni MD Chest X-Ray 10/18/16 Signed Impressions: Service Date/Time: Tuesday, October 18, 2016 14:59 - CONCLUSION: 1. Mild to moderate pulmonary vascular congestion. 2. Cardiomegaly. 3. Elevation of the right hemidiaphragm. 4. Endotracheal tube in good position 3 cm above the elsie. 5. Left internal jugular VasCath and left subclavian central line are stable in positions. Raymond Smith MD Brain MRI 10/18/16 Signed Impressions: Service Date/Time: Tuesday, October 18, 2016 16:11 - CONCLUSION: Nonspecific white matter signal change in the left frontal region. No evidence of acute stroke. Ricco Kulkarni MD Ankle X-Ray 10/14/16 Signed Impressions: Service Date/Time: Friday, October 14, 2016 17:01 - CONCLUSION: Marked soft tissue swelling with subcutaneous calcifications. Negative for fracture. Roman Montiel MD FACR Upper Extremity Ultrasound 10/13/16 Signed Impressions: Service Date/Time: Thursday, October 13, 2016 09:17 - CONCLUSION: 1. No DVT. 2. Subcutaneous edema observed. Wilner Potter Jr., MD Lower Extremity Ultrasound 10/13/16 Signed Impressions: Service Date/Time: Thursday, October 13, 2016 08:57 - CONCLUSION: 1. Study has some limitations as detailed above. No DVT observed. Wilner Potter Jr., MD Lower Extremity CT 10/13/16 Signed Impressions: Service Date/Time: Thursday, October 13, 2016 21:35 - CONCLUSION: Ulcer at the region of the base of the fifth metatarsal. There appears to be chronic and acute changes in this region. The acute changes are worrisome for osteomyelitis at the base of the fifth metatarsal. Ricco Fuentes MD Chest CT 10/13/16 Signed Impressions: Service Date/Time: Thursday, October 13, 2016 21:27 - CONCLUSION: 1. Patchy areas of consolidation seen bilaterally being worse on the right. These could represent areas of inflammatory/infectious disease. Focal round lesions to suggest septic emboli are not clearly identified. 2. Edema seen at the right superficial chest and abdomen regions. The cause of for this asymmetric edema is not known. 3. Mild ascites. Ricco Fuentes MD Abdomen CT 9/1/17 0000 Signed Impressions: Service Date/Time: Thursday, October 13, 2016 21:27 - CONCLUSION: 1. Mild ascites seen around the liver. 2. Superficial edema seen bilaterally in the subcutaneous tissues. This is asymmetric and being much more prominent on the right. 3. Small area of increased density seen independently in the gallbladder representing either small gallstones or milk of calcium. Ricco Fuentes MD Renal Ultrasound 10/12/16 0000 Signed Impressions: Service Date/Time: September 20:54 - CONCLUSION: Normal appearance of the kidneys. Ricco Fuentes MD Objective Remarks GENERAL: This is a well-nourished, well-developed patient, in no apparent distress. CARDIOVASCULAR: Regular rate and regular rhythm without murmurs, gallops, or rubs. RESPIRATORY: Clear to auscultation. Breath sounds equal bilaterally. No wheezes , rales, or rhonchi. GASTROINTESTINAL: Abdomen soft, non-tender, nondistended. Normal, active bowel sounds MUSCULOSKELETAL: Extremities without clubbing, cyanosis, or edema. NEURO: Alert & Oriented x4 to person, place, time, situation. Moves all ext x4 Medications and IVs Current Medications Sodium Chloride 1,000 ml @ 999 mls/hr BOLUS ONCE IV Last administered on 10/12 18:59; Start 10/12/16 at 18:15; Stop 10/12/16 at 19:15; Status DC Sodium Bicarbonate 150 meq/Sterile Water 1,000 ml @ 100 mls/hr Q10H IV Last administered on 10/12/16 23:39; Start 10/12/16 at 20:15; Stop 10/13/16 at 05:52 ; Status DC Sodium Chloride (NS Flush) 2 ml UNSCH PRN IV FLUSH FLUSH AFTER USING IV ACCESS ; Start 10/12/16 at 20:15 Sodium Chloride (NS Flush) 2 ml BID IV FLUSH Last administered on 11/04/16 21: 00; Start 10/12/16 at 21:00 Heparin Sodium (Porcine) (Heparin Inj) 5,000 units Q8H SQ Last administered on 10/18/16 12:42; Start 10/13/16 at 06:00; Stop 10/18/16 at 15:57; Status DC Naloxone HCl (Narcan Inj) 0.4 mg UNSCH PRN IV SEE LABEL COMMENTS; Start at 20:15 Calcium Gluconate (Calcium Gluconate Inj) 1 gm ONCE ONCE IV PUSH ; Start at 20:15; Stop 10/12/16 at 21:51; Status DC Insulin Human Regular (NovoLIN R INJ) 10 units ONCE ONCE IV PUSH Last administered on 10/12/16 23:54; Start 10/12/16 at 20:15; Stop 10/12/16 at 21:53 ; Status DC Dextrose (D50w (Syr) Inj) 50 ml ONCE ONCE IV PUSH Last administered on 23:53; Start 10/12/16 at 20:15; Stop 10/12/16 at 21:52; Status DC Sodium Polystyrene Sulfonate (Kayexalate Liq) 30 gm ONCE ONCE PO Last administered on 10/12/16 23:40; Start 10/12/16 at 20:15; Stop 10/12/16 at 21:54 ; Status DC Dextrose (D50w (Vial) Inj) 50 ml UNSCH PRN IV HYPOGLYCEMIA-SEE COMMENTS; Start 10/12/16 at 20:15; Stop 10/13/16 at 07:33; Status DC Glucagon (Glucagon Inj) 1 mg UNSCH PRN OTHER HYPOGLYCEMIA-SEE COMMENTS; Start 10/12/16 at 20:15 Insulin Aspart (NovoLOG SUPPLEMENTAL SCALE) 1 ACHS SLIDING SCALE SQ ; Start at 21:00; Stop 10/13/16 at 07:30; Status DC Calcium Gluconate 1 gm/Sodium Chloride 110 ml @ 110 mls/hr ONCE ONCE IV Last administered on 10/12/16 23:54; Start 10/12/16 at 23:00; Stop 10/12/16 at 23:59 ; Status DC Ipratropium [place] (Atrovent Neb) 0.5 mg Q6HR NEB NEB Last administered on 07:48; Start 10/13/16 at 04:00 Ipratropium [place] (Atrovent Neb) 0.5 mg Q2HR NEB PRN NEB wheezing; Start 10/13 at 00:45 Amitriptyline HCl (Elavil) 50 mg HS PO ; Start 10/13/16 at 21:00; Stop 10/13/16 at 21:00; Status DC Hydralazine HCl (Apresoline) 100 mg TID PO ; Start 10/13/16 at 09:00; Stop at 09:00; Status DC Insulin Detemir (Levemir Inj) 20 units AC BREAKFAST SQ ; Start 10/13/16 at 07:00 ; Stop 10/13/16 at 07:00; Status DC Insulin Detemir (Levemir Inj) 25 units HS SQ ; Start 10/13/16 at 21:00; Stop 10/13 at 21:00; Status DC Labetalol HCl (Trandate) 200 mg TID PO ; Start 10/13/16 at 09:00; Stop 10/13/16 at 09:00; Status DC Lactobacillus Acidophilus (Lactinex) 1 tab TIDAC PO Last administered on t 10:03; Start 10/13/16 at 08:00 Loratadine (Claritin) 10 mg DAILY PO ; Start 10/13/16 at 09:00; Stop 10/13/16 at 09:00; Status DC Montelukast Sodium (Singulair) 10 mg HS PO ; Start 10/13/16 at 21:00; Stop at 21:00; Status DC Nifedipine (Procardia Xl) 60 mg TID PO ; Start 10/13/16 at 09:00; Stop 10/13/16 at 09:00; Status DC Pravastatin Sodium (Pravachol) 40 mg DAILY PO ; Start 10/13/16 at 09:00; Stop 10/13/16 at 09:00; Status DC Sodium Chloride 1,000 ml @ 999 mls/hr BOLUS ONCE IV Last administered on t 05:42; Start 10/13/16 at 04:45; Stop 10/13/16 at 05:45; Status DC Sodium Bicarbonate 150 meq/Dextrose 1,150 ml @ 75 mls/hr [id number] IV ; Start 10/13/16 at 08:00; Stop 10/13/16 at 08:00; Status DC Norepinephrine Bitartrate 250 ml @ As Directed STK-MED ONCE IV ; Start 10/13/16 at 07:25; Stop 10/13/16 at 07:26; Status DC Norepinephrine Bitartrate 250 ml @ 7.5 mls/hr TITRATE PRN IV Blood pressure management; Start 10/13/16 at 07:30; Status UNV Terbutaline Sulfate (Brethine Inj) 1 mg UNSCH PRN SQ For Extravasation; Start 10/13/16 at 07:30; Stop 10/28/16 at 11:24; Status DC Sodium Bicarbonate (Sodium Bicarbonate 8.4% Inj) 200 meq ONCE ONCE IV PUSH Last administered on 10/13/16 07:30; Start 10/13/16 at 07:30; Stop 10/13/16 at 07: 35; Status DC Dextrose (D50w (Vial) Inj) 25 ml UNSCH PRN IV PUSH HYPOGLYCEMIA-SEE COMMENTS; Start 10/13/16 at 07:30 Insulin Human Regular (NovoLIN R SUPPLEMENTAL SCALE) 1 Q6HR SQ Last administered on 11/05/16 00:00; Start 10/13/16 at 12:00 Linezolid 300 ml @ 300 mls/hr Q12H IV ; Start 10/13/16 at 08:00; Stop 10/13/16 at 08:07; Status DC Piperacillin Sod/ Tazobactam Sod 50 ml @ 100 mls/hr Q8H IV Last administered on 10/13/16 09:07; Start 10/13/16 at 09:00; Stop 10/13/16 at 14:13; Status DC Norepinephrine Bitartrate 16 mg/ Dextrose 250 ml @ 1.87 mls/hr TITRATE PRN IV Maintain MAP > 65 mmHg; Start 10/13/16 at 08:00; Stop 10/28/16 at 11:24; Status DC Epinephrine HCl 2 mg/Dextrose 252 ml @ 15.12 mls/ hr TITRATE PRN IV Blood Pressure Management; Start 10/13/16 at 08:15; Stop 10/13/16 at 08:47; Status DC Ketamine HCl (Ketalar Inj) 50 mg STAT ONCE IV PUSH ; Start 10/13/16 at 08:15; Stop 10/13/16 at 08:33; Status DC Midazolam HCl (Versed Inj) 2 mg STAT ONCE IV PUSH ; Start 10/13/16 at 08:15; Stop 10/13/16 at 08:31; Status DC Clindamycin Phosphate 900 mg/ Sodium Chloride 106 ml @ 212 mls/hr Q8H IV Last administered on 10/13/16 09:07; Start 10/13/16 at 09:00; Stop 10/13/16 at 13:55; Status DC Epinephrine HCl 8 mg/Dextrose 250 ml @ 5.62 mls/hr TITRATE PRN IV Blood Pressure Management Last administered on 10/13/16 09:07; Start 10/13/16 at 09:00 ; Stop 10/28/16 at 11:24; Status DC Sodium Bicarbonate (Sodium Bicarbonate 8.4% Inj) 200 meq ONCE ONCE IV PUSH Last administered on 10/13/16 11:43; Start 10/13/16 at 11:30; Stop 10/13/16 at 11: 31; Status DC Etomidate (Amidate Inj) 20 mg ONCE ONCE IV PUSH ; Start 10/13/16 at 13:15; Stop 10/13/16 at 14:37; Status DC Midazolam HCl (Versed Inj) 5 mg ONCE ONCE IV PUSH Last administered on 13:15; Start 10/13/16 at 13:15; Stop 10/13/16 at 14:37; Status DC Rocuronium [place] (Zemuron Inj) 100 mg BOLUS ONCE IV Last administered on 10/13 13:15; Start 10/13/16 at 13:15; Stop 10/13/16 at 14:37; Status DC Midazolam HCl (Versed Inj) 5 mg STK-MED ONCE .ROUTE Last administered on 13:20; Start 10/13/16 at 13:20; Stop 10/13/16 at 13:21; Status DC Micafungin Sodium 150 mg/Sodium Chloride 100 ml @ 100 mls/hr Q24H IV Last administered on 10/16/16 16:12; Start 10/13/16 at 17:00; Stop 10/16/16 at 17:40; Status DC Daptomycin 1000 mg/Sodium Chloride 100 ml @ 200 mls/hr Q48H IV Last administered on 10/27/16 16:58; Start 10/13/16 at 16:00; Stop 10/30/16 at 15:59 ; Status DC Cefepime HCl 1000 mg/Sodium Chloride 100 ml @ 200 mls/hr Q24H IV Last administered on 11/04/16 15:00; Start 10/13/16 at 15:00 Metronidazole 100 ml @ 100 mls/hr Q8H IV Last administered on 10/16/16 15:13; Start 10/13/16 at 16:00; Stop 10/16/16 at 17:40; Status DC Propofol 100 ml @ As Directed STK-MED ONCE .ROUTE ; Start 10/13/16 at 15:31; Stop 10/13/16 at 15:32; Status DC Sodium Chloride 1,000 ml @ 0 mls/hr Q0M PRN OTHER For Prime & Rinse Back Last administered on 10/21/16 10:43; Start 10/13/16 at 15:54 Heparin Sodium (Porcine) (Heparin Inj) 8,000 units UNSCH PRN IVF WITH DIALYSIS ; Start 10/13/16 at 16:00 Sodium Chloride 1,000 ml @ 200 mls/hr Q5H PRN IV WITH DIALYSIS Last administered on 11/03/16 17:23; Start 10/13/16 at 15:54 Sodium Chloride 1,000 ml @ 0 mls/hr Q0M PRN OTHER WITH DIALYSIS; Start 10/13/16 at 15:54 Mannitol (Mannitol Inj) 12.5 gm UNSCH PRN IV WITH DIALYSIS; Start 10/13/16 at 16 :00 Albumin Human (Albumin 25% Inj) 25 gm UNSCH PRN IV WITH DIALYSIS Last administered on 10/14/16 08:19; Start 10/13/16 at 16:00 Sodium Chloride (NS Flush) 5 ml UNSCH PRN IV FLUSH WITH DIALYSIS Last administered on 10/21/16 10:42; Start 10/13/16 at 16:00 Heparin Sodium (Porcine) (Heparin Inj) UNSCH PRN .XX WITH DIALYSIS Last administered on 11/03/16 17:23; Start 10/13/16 at 16:00 Gentamicin Sulfate (Gentamicin (Dialysis) Inj) 20 mg UNSCH PRN IV WITH DIALYSIS Last administered on 11/03/16 17:23; Start 10/13/16 at 16:00 Ondansetron HCl (Zofran Inj) 4 mg UNSCH PRN IV WITH DIALYSIS; Start 10/13/16 at 16:00 Acetaminophen (Tylenol) 650 mg UNSCH PRN PO for headach, pain, temp > 101F Last administered on 10/21/16 20:36; Start 10/13/16 at 16:00 Diphenhydramine HCl (Benadryl) 25 mg UNSCH PRN PO for hives/itching/ anaphylaxis Last administered on 10/28/16 06:35; Start 10/13/16 at 16:00; Stop 11/01/16 at 11:23; Status DC Nitroglycerin (Nitrostat Sl) 0.4 mg UNSCH PRN SL CHEST PAIN; Start 10/13/16 at 16:00 Clonidine (Catapres) 0.1 mg UNSCH PRN PO for BP > 180/100 X 2 readings Last administered on 10/29/16 16:52; Start 10/13/16 at 16:00; Stop 10/29/16 at 20:11 ; Status DC Gelatin (Gelfoam 12 Mm/7 Mm Top) 1 foam UNSCH PRN TOP SEE LABEL COMMENTS Last administered on 10/15/16 10:39; Start 10/13/16 at 16:00 Propofol 100 ml @ As Directed STK-MED ONCE .ROUTE ; Start 10/13/16 at 18:39; Stop 10/13/16 at 18:40; Status DC Propofol 100 ml @ 4.128 mls/ hr TITRATE PRN IV SEDATION Last administered on 13:36; Start 10/13/16 at 19:15; Stop 10/28/16 at 11:24; Status DC Famotidine (Pepcid Liq) 20 mg BID NG Last administered on 10/15/16 09:19; Start 10/14/16 at 21:00; Stop 10/15/16 at 10:04; Status DC Silver Nitrate/ Potassium Nitrate (Silver Nitrate Applicators) 1 appl UNSCH X1 ONCE TOPICAL Last administered on 10/15/16 09:19; Start 10/15/16 at 09:00; Stop 10/15/16 at 09:01; Status DC Famotidine (Pepcid Liq) 10 mg BID NG Last administered on 10/21/16 09:00; Start 10/15/16 at 21:00; Stop 10/21/16 at 20:09; Status DC Diphenhydramine HCl (Benadryl) 25 mg BID PO Last administered on 10/17/16 08:55 ; Start 10/15/16 at 21:00; Stop 10/17/16 at 09:01; Status DC Dexamethasone Sodium Phosphate (Decadron Inj) 4 mg Q6HR IV PUSH Last administered on 10/16/16 17:57; Start 10/16/16 at 10:00; Stop 10/16/16 at 18:01; Status DC Hydralazine HCl (Apresoline Inj) 20 mg Q3H PRN IV PUSH SBP > 170 Last administered on 11/04/16 15:55; Start 10/16/16 at 15:45 Labetalol HCl (Trandate Inj) 20 mg Q3H PRN IV PUSH SBP > 160 Last administered on 11/01/16 12:39; Start 10/16/16 at 15:45 Atropine Sulfate (Atropine Inj) 1 mg STK-MED ONCE IV ; Start 10/13/16 at 05:00; Stop 10/17/16 at 11:07; Status DC Sodium Bicarbonate (Sodium Bicarbonate 8.4% Inj) 50 meq STK-MED ONCE IV ; Start 10/13/16 at 05:00; Stop 10/17/16 at 11:08; Status DC Sodium Chloride 250 ml @ 15 mls/hr ONCE ONCE IV ; Start 10/18/16 at 09:30; Stop 10/19/16 at 02:09; Status DC Epinephrine HCl (EPINEPHrine (1:10,000) INJ) 1 mg STK-MED ONCE .ROUTE ; Start at 14:51; Stop 10/18/16 at 14:52; Status DC Alteplase, Recombinant (Activase Bolus) 9 mg ONCE ONCE IV Last administered on 10/18/16 16:00; Start 10/18/16 at 16:00; Stop 10/18/16 at 16:03; Status DC Alteplase, Recombinant 81 mg/ Syringe / Bag 81 ml @ 81 mls/hr ONCE ONCE IV Last administered on 10/18/16 16:01; Start 10/18/16 at 16:00; Stop 10/18/16 at 16: 59; Status DC Sodium Chloride (NS Inj) 30 ml ONCE ONCE IVF Last administered on 10/18/16 16: 00; Start 10/18/16 at 16:00; Stop 10/18/16 at 16:02; Status DC Miscellaneous Information No Heparin, Warfarin, Aspir... UNSCH PRN XX SEE DOSE INSTRUCTIONS; Start 10/18/16 at 16:00; Stop 10/19/16 at 15:59; Status DC Micafungin Sodium 150 mg/Sodium Chloride 100 ml @ 100 mls/hr Q24H IV Last administered on 10/18/16 18:32; Start 10/18/16 at 18:00; Stop 10/19/16 at 14:43; Status DC Chlorhexidine Gluconate (Peridex 0.12% Liq) 15 ml BID@08,20 MT Last administered on 10/28/16 10:50; Start 10/18/16 at 20:00 Dexamethasone Sodium Phosphate (Decadron Inj) 4 mg STAT ONCE IV PUSH Last administered on 10/19/16 11:50; Start 10/19/16 at 11:15; Stop 10/19/16 at 11:16; Status DC Racepinephrine (Racepinephrine 2.25% Neb) 0.5 ml STK-MED ONCE .ROUTE ; Start 10/19/16 at 13:19; Stop 10/19/16 at 13:20; Status DC Diphenhydramine HCl (Benadryl) 25 mg Q6H PRN PO ITCHING Last administered on 11:57; Start 10/21/16 at 15:30; Stop 10/23/16 at 10:29; Status DC Famotidine (Pepcid) 10 mg BID PO Last administered on 11/05/16 10:03; Start at 21:00 Calamine (Calamine Lotion) 1 applic Q6H PRN TOPICAL irritated skin Last administered on 11/03/16 20:36; Start 10/21/16 at 22:30 Thiamine HCl (Vitamin B1) 100 mg DAILY PO Last administered on 11/05/16 10:03 ; Start 10/23/16 at 09:00 Diphenhydramine HCl (Benadryl) 50 mg Q6H PRN PO ITCHING Last administered on 05:33; Start 10/23/16 at 15:30; Stop 11/01/16 at 11:23; Status DC Senna/Docusate Sodium (Maira-Colace) 2 tab ONCE ONCE PO Last administered on 12:11; Start 10/23/16 at 10:30; Stop 10/23/16 at 11:05; Status DC Magnesium Hydroxide (Milk Of Lion Cohen) 30 ml ONCE ONCE PO Last administered on 10/23/16 12:11; Start 10/23/16 at 10:30; Stop 10/23/16 at 11:06 ; Status DC Senna/Docusate Sodium (Maira-Colace) 1 tab BID PO Last administered on 10:04; Start 10/23/16 at 21:00 Lactic Acid (Lac-Hydrin 12% Lotion) 1 applic BID TOPICAL Last administered on 09:00; Start 10/23/16 at 21:00 Cholecalciferol (Vitamin D3) 5,000 units DAILY PO Last administered on 10:02; Start 10/24/16 at 09:00 Cholecalciferol (Vitamin D3) 10,000 units ONCE ONCE PO Last administered on 18:06; Start 10/23/16 at 17:45; Stop 10/23/16 at 17:46; Status DC Senna/Docusate Sodium (Maira-Colace) 1 tab BID PO ; Start 10/24/16 at 21:00; Stop 10/24/16 at 21:00; Status DC Fluconazole (Diflucan) 100 mg Q48H PO Last administered on 10/30/16 18:01; Start 10/24/16 at 17:00; Stop 10/30/16 at 18:24; Status DC Hydralazine HCl (Apresoline) 25 mg Q12HR PO Last administered on 10/28/16 10: 48; Start 10/26/16 at 11:30; Stop 10/28/16 at 13:51; Status DC Diphenhydramine HCl (Benadryl 2% Cream) APPLY TO AFFECTED AREA Q4H PRN TOPICAL ITCHING; Start 10/27/16 at 17:30 Nifedipine (Procardia Xl) 30 mg ONCE ONCE PO Last administered on 10/28/16 18 :37; Start 10/28/16 at 14:30; Stop 10/28/16 at 14:31; Status DC Hydralazine HCl (Apresoline) 25 mg Q8H PO Last administered on 10/31/16 08:25 ; Start 10/28/16 at 16:00; Stop 10/31/16 at 10:30; Status DC Multi-Ingredient Ointment (Eucerin Cream) 1 applic Q6H PRN TOPICAL DRY SKIN Last administered on 11/04/16 22:47; Start 10/29/16 at 12:15 Nifedipine (Procardia Xl) 30 mg DAILY PO Last administered on 11/01/16 09:28; Start 10/29/16 at 12:15; Stop 11/01/16 at 12:00; Status DC Clonidine (Catapres) 0.1 mg Q8H PRN PO for BP > 180/100 X 2 readings Last administered on 10/29/16 21:45; Start 10/29/16 at 20:15 Metoprolol Tartrate (Lopressor) 25 mg DAILY PO Last administered on 11/05/16 10:03; Start 10/30/16 at 10:00 Potassium Chloride (KCl) 30 meq ONCE ONCE PO Last administered on 10/30/16 13 :40; Start 10/30/16 at 11:45; Stop 10/30/16 at 11:46; Status DC Potassium Chloride (KCl) 20 meq ONCE ONCE PO Last administered on 10/30/16 18 :01; Start 10/30/16 at 14:30; Stop 10/30/16 at 14:31; Status DC Hydralazine HCl (Apresoline) 50 mg Q8HR PO Last administered on 11/02/16 05:12 ; Start 10/31/16 at 14:00; Stop 11/02/16 at 10:25; Status DC Hydroxyzine HCl (Atarax) 25 mg Q6H PRN PO ITCHING Last administered on 05:09; Start 11/01/16 at 11:30 Loratadine (Claritin) 10 mg DAILY PO Last administered on 11/05/16 10:03; Start 11/01/16 at 11:30 Nifedipine (Procardia Xl) 60 mg DAILY PO Last administered on 11/04/16 09:07; Start 11/02/16 at 09:00; Stop 11/04/16 at 11:40; Status DC Hydralazine HCl (Apresoline) 75 mg Q8HR PO Last administered on 11/03/16 05:30 ; Start 11/02/16 at 14:00; Stop 11/03/16 at 10:51; Status DC Hydralazine HCl (Apresoline) 100 mg Q8HR PO Last administered on 11/05/16 05: 09; Start 11/03/16 at 14:00 Nifedipine (Procardia Xl) 30 mg ONCE ONCE PO Last administered on 11/04/16 12 :04; Start 11/04/16 at 11:45; Stop 11/04/16 at 11:51; Status DC Nifedipine (Procardia Xl) 90 mg DAILY PO Last administered on 11/05/16 10:02; Start 11/05/16 at 09:00 A/P Assessment and Plan A/P Suspected stroke alert with acute change in neurologic status 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 Patient was administered IV thrombolysis following evaluation by neurology Dr. Burton in view of concern for brain stem CVA while awaiting MRI brain on 10/18. Subsequently MRI/MRA brain unremarkable. - Urine tox screen came back positive for benzodiazepines placing concern for surreptitious benzodiazepine use as she does not have any benzodiazepine listed on her APR. non-sustained V-tach started on lopressor- echo with EF 60%. continue to monitor. Obesity Hypoventilation Syndrome COPD Sleep Apnea Acute hypoxic and hypercarbic respiratory failure- persistent, no improvement. Pulmonary Edema - intubated and then extubated 10/16. -Emergently intubated on 10/18 for airway protection due to altered mental status. Extubated on 10/19- now stable. Septic Shock- resolved. pseudomonas bacteremia Severe Tricuspid Regurgitation IV antibiotics per ID recommendations; on Cefepime. Acute kidney injury requiring renal replacement therapy - nephrology following - HD per nephrology; awaiting renal recovery. -monitor the renal function. -- Strict IOs Chronic anemia- likely secondary to chronic disease LLE osteomyelitis Pseudomonas bacteremia Gram Positive Bacteremia Pseudomonas osteomyelitis Fungal Urinary Tract Infection -Recommend transfusions of PRBCs to keep hemoglobin above 7 g percent. - ID following. - continue antibiotics per ID. Diabetes -Vitamin D deficiency. -- Patient had low vitamin D and was started on cholecalciferol. -- continue accu-check with sliding scale. hypertension-uncontrolled increase Procardia XL to 60 mg po twice daily- continue metoprolol and hydralazine continue to monitor and adjust the regimen as needed. GI Prophylaxis pepcid DVT Prophylaxis -- SCDs Sub-cutaneous heparin Discharge Planning when cleared by ID and nephrology. Roseanna Murphy MD Nov 05, 2016 10:47
--- NOTE | 2016-11-05 11:55 | HHI.NPPN ---
Subjective General Problems: Anemia Renal Failure: Acute Additional Remarks Patient is alert, no SOB, on room air, no nausea, has pain in both feet. Review of Systems General Constitutional: Fatigue Eyes Eyes: Itching Ears, Nose, & Throat ENT Remarks loss of appetite Respiratory Lungs: SOB Cardiovascular Cardiac: Edema Endocrine Endocrine: Thirst Skin Skin: Skin Rash, Ulcers Skin Remarks generalized rash with peeling skin; ulcer planter surface left foot Objective Data Data Vital Signs Date Time Temp Pulse Resp B/P (MAP) Pulse Ox O2 Delivery O2 Flow Rate FiO2 11/05/16 08:00 98.0 98 18 182/93 (122) 100 Manual Cuff/Auscultation 11/05/16 07:49 97 21 11/05/16 04:00 98.2 97 18 185/97 (126) 99 11/05/16 04:00 Room Air 11/05/16 00:00 Room Air 11/05/16 00:00 98.9 98 18 165/78 (107) 98 11/04/16 20:42 93 21 11/04/16 20:00 98.4 91 16 148/70 (96) 97 11/04/16 20:00 90 11/04/16 20:00 Room Air 11/04/16 16:00 98.4 83 20 187/88 (121) 94 11/04/16 14:57 Room Air 11/04/16 14:57 87 11/04/16 12:00 98.4 86 18 199/98 (131) 95 -: 11/03/16 0649 11/05/16 0703 Tubes & Lines: Vas-Cath, Shah Physical Exam General Appearance: No Acute Distress, Comfortable, Obese Eyes Eye Exam: Pupils Equal Throat Throat Exam: Oral Mucosa [place] & Moist Neck Neck Exam: Neck Supple Pulmonary Resp Exam: Breath Sounds Equal, No Distress, Rhonchi, Decreased Bases Cardiology CV Exam: Regular, Normal Sinus Rhythm, Good Perfusion Gastrointestinal/Abdomen GI Exam: Soft, Non-Tender, Bowel Sounds Present Musculoskeletal MS Exam: Joints Intact, Normal Tone, Unable to Ambulate Integumentary Skin Exam: Warm, Dry, Intact Extremeties Extremities Exam: Moderate Edema, Pitting Edema Neurologic Neuro Exam: Alert, Awake, Oriented Psychiatric Psych Exam: Appropriate Responses Assessment/Plan Discussed Condition With: Patient Assessment Summary: FREDI/Acute Renal Failure Problem List: (1) Acute renal failure ICD Codes: N17.9 - Acute kidney failure, unspecified Status: Acute Plan: She apparently has a baseline creatinine of 1mg/dL FREDI from ATN, secondary vancomycin induced nephrotoxicity, allergic interstitial nephritis. may also be due to sepsis HD initiated on 10/13/16, has been on TTS HD schedule Due to shortness of breath, we will dialyze her today Monitor urine output.Although accurate output may not be recorded. repeat labs in AM Avoid nephrotoxic agents. Avoid IVF. Await renal recovery. BP is elevated, Nifedipine increased, also on Hydralazine. The Vascath was accidently cut by the RN and was removed. Now the Creatinine is slightly better, 3.9. Follow the urine out put and BMP. Vascath or PermCath again if need HD. Dr. Quiros will follow from AM. (2) Sepsis ICD Codes: A41.9 - Sepsis, unspecified organism Plan: + Pseudomonas in the blood, and gram stain of the wound. Currently on Cefepime (x 6 weeks) D/W ID, Midline placement okay (3) Metabolic acidosis ICD Codes: E87.2 - Acidosis Status: Acute Plan: Corrected, monitor (4) Anemia ICD Codes: D64.9 - Anemia Status: Acute Plan: Hb improved, monitor (5) Vitamin D deficiency ICD Codes: E55.9 - Vitamin D deficiency, unspecified Plan: replacement ordered (6) Itching ICD Codes: L29.9 - Pruritus, unspecified Plan: on Benadryl cream also Vistaril PRN with daily Claritin Problem Qualifiers (1) Acute renal failure: Qualified Codes: N17.9 - Acute kidney failure, unspecified (2) Anemia: Qualified Codes: D64.9 - Anemia, unspecified Zi Kemp MD Nov 05, 2016 11:55
[2016-11-05] MEDS: CEFEPIME INJ 1,000 MG in SODIUM CHLORIDE 0.9% INJ 100 ML IV SCH (13:53)
[2016-11-05] MEDS ORDERED: NIFEdipine 30 MG SUSTAINED RELEASE TAB PO ONE (18:00)
[2016-11-05] MEDS: CHLORHEXIDINE 0.12% (ORAL KIT) 15 ML CUP MT SCH (20:00)
[2016-11-05] MEDS: EUCERIN CREAM 120 GM JAR TOPICAL PRN (20:27)
[2016-11-06] VITALS (9 sets, daily range): BP systolic 164–186; BP diastolic 71–102; PULSE 87–103; RESP 16–20; TEMP 97.7–98.4; O2SAT 93–99
[2016-11-06] MEDS: RESP: IPRATROPIUM 0.5 MG/2.5 ML NEB NEB SCH (03:35)
[2016-11-06] MEDS: hydrALAZINE HCL 100 MG TAB PO SCH ×3 (05:48→21:56)
[2016-11-06] MEDS: hydrOXYzine HCL 25 MG TAB PO PRN ×3 (05:49→18:41)
[2016-11-06] MEDS: cloNIDine HCL 0.1 MG TAB PO PRN ×2 (05:49→18:41)
[2016-11-06] MEDS: INSULIN NovoLIN REGULAR SUPPLEMENTAL SCALE SQ SCH ×4 (06:00→18:00)
[2016-11-06] MEDS: CHLORHEXIDINE 0.12% (ORAL KIT) 15 ML CUP MT SCH ×2 (08:00→20:00)
[2016-11-06] MEDS: LACTIC ACID (AMMONIUM LACTATE) 12% LOTION 225 GM BTL TOPICAL SCH ×2 (09:00→21:00)
[2016-11-06] MEDS: THIAMINE HCL 100 MG TAB PO SCH (09:48)
[2016-11-06] MEDS: LORATADINE 10 MG TAB PO SCH (09:48)
[2016-11-06] MEDS: LACTOBACILLUS ACIDOPHILUS TAB PO SCH ×3 (09:48→18:41)
[2016-11-06] MEDS: METOPROLOL TARTRATE 25 MG TAB PO SCH (09:48)
[2016-11-06] MEDS: CHOLECALCIFEROL (VIT D3) 5000 UNIT CAP PO SCH (09:48)
[2016-11-06] MEDS: DOCUSATE SODIUM 50 MG/SENNA 8.6 MG TAB PO SCH ×2 (09:48→21:56)
[2016-11-06] MEDS: FAMOTIDINE 20 MG TAB PO SCH ×2 (09:48→21:56)
[2016-11-06] MEDS: NIFEdipine 60 MG SUSTAINED RELEASE TAB PO SCH ×2 (09:48→21:56)
[2016-11-06] MEDS: SODIUM CHLORIDE 0.9% FLUSH 10 ML FLUSH IV FLUSH SCH ×2 (09:50→21:00)
--- NOTE | 2016-11-06 10:27 | HHI.NPPN ---
Subjective General Problems: Anemia Renal Failure: Acute Interval History She is sitting up in bed. Stat labs have been ordered. Her vascath was inadvertently removed over the weekend. (Lizy Pineda) Review of Systems General Constitutional: Fatigue (Lizy Pineda) Eyes Eyes: Itching (Lizy Pineda) Ears, Nose, & Throat ENT Remarks loss of appetite (Lizy Pineda) Respiratory Lungs: SOB (Lizy Pineda) Cardiovascular Cardiac: Edema (Lizy Pineda) Endocrine Endocrine: Thirst (Lizy Pineda) Skin Skin: Skin Rash, Ulcers Skin Remarks generalized rash with peeling skin; ulcer planter surface left foot (Lizy Pineda) Objective Data Data Vital Signs Date Time Temp Pulse Resp B/P (MAP) Pulse Ox O2 Delivery O2 Flow Rate FiO2 11/06/16 06:59 178/90 (119) 11/06/16 05:47 98.4 97 20 186/102 (130) 96 11/06/16 00:00 Room Air 11/06/16 00:00 97.8 93 20 166/71 (102) 94 11/05/16 22:50 98.3 91 18 174/84 (114) 95 11/05/16 21:19 21 11/05/16 20:15 Room Air 11/05/16 20:00 90 11/05/16 16:00 97.9 85 18 166/79 (108) 99 11/05/16 12:00 98.1 94 18 189/96 (127) 97 (Lizy Pineda) -: 11/03/16 0649 11/05/16 0703 Imaging Last Impressions Liver Ultrasound 10/23/16 0000 Signed Impressions: Service Date/Time: Sunday, October 23, 2016 09:45 - CONCLUSION: 1. Gallbladder sludge 2. No evidence of biliary duct dilatation 3. Otherwise unremarkable exam. Jaiden Weston MD Head CT 10/19/16 1700 Signed Impressions: Service Date/Time: October 17:01 - CONCLUSION: No acute intracranial findings Ricco Kulkarni MD Head Magnetic Resonance Angiography 10/18/16 Signed Impressions: Service Date/Time: Tuesday, October 18, 2016 16:23 - CONCLUSION: Normal examination. Ricco Kulkarni MD Chest X-Ray 10/18/16 Signed Impressions: Service Date/Time: Tuesday, October 18, 2016 14:59 - CONCLUSION: 1. Mild to moderate pulmonary vascular congestion. 2. Cardiomegaly. 3. Elevation of the right hemidiaphragm. 4. Endotracheal tube in good position 3 cm above the elsie. 5. Left internal jugular VasCath and left subclavian central line are stable in positions. Raymond Smith MD Brain MRI 10/18/16 Signed Impressions: Service Date/Time: Tuesday, October 18, 2016 16:11 - CONCLUSION: Nonspecific white matter signal change in the left frontal region. No evidence of acute stroke. Ricco Kulkarni MD Ankle X-Ray 10/14/16 Signed Impressions: Service Date/Time: Friday, October 14, 2016 17:01 - CONCLUSION: Marked soft tissue swelling with subcutaneous calcifications. Negative for fracture. Roman Montiel MD FACR Upper Extremity Ultrasound 10/13/16 Signed Impressions: Service Date/Time: Thursday, October 13, 2016 09:17 - CONCLUSION: 1. No DVT. 2. Subcutaneous edema observed. Wilner Potter Jr., MD Lower Extremity Ultrasound 10/13/16 Signed Impressions: Service Date/Time: Thursday, October 13, 2016 08:57 - CONCLUSION: 1. Study has some limitations as detailed above. No DVT observed. Wilner Potter Jr., MD Lower Extremity CT 10/13/16 Signed Impressions: Service Date/Time: Thursday, October 13, 2016 21:35 - CONCLUSION: Ulcer at the region of the base of the fifth metatarsal. There appears to be chronic and acute changes in this region. The acute changes are worrisome for osteomyelitis at the base of the fifth metatarsal. Ricco Fuentes MD Chest CT 10/13/16 Signed Impressions: Service Date/Time: Thursday, October 13, 2016 21:27 - CONCLUSION: 1. Patchy areas of consolidation seen bilaterally being worse on the right. These could represent areas of inflammatory/infectious disease. Focal round lesions to suggest septic emboli are not clearly identified. 2. Edema seen at the right superficial chest and abdomen regions. The cause of for this asymmetric edema is not known. 3. Mild ascites. Ricco Fuentes MD Abdomen CT 10/13/16 0000 Signed Impressions: Service Date/Time: Thursday, October 13, 2016 21:27 - CONCLUSION: 1. Mild ascites seen around the liver. 2. Superficial edema seen bilaterally in the subcutaneous tissues. This is asymmetric and being much more prominent on the right. 3. Small area of increased density seen independently in the gallbladder representing either small gallstones or milk of calcium. Ricco Fuentes MD Renal Ultrasound 10/12/16 0000 Signed Impressions: Service Date/Time: September 20:54 - CONCLUSION: Normal appearance of the kidneys. Ricco Fuentes MD (Lizy Pineda) Physical Exam General Appearance: No Acute Distress, Comfortable, Obese (Lizy Pineda B. SEE WHEELER) Eyes Eye Exam: Pupils Equal (Lizy Pineda BOtis PEREAP) Throat Throat Exam: Oral Mucosa [place] & Moist (Lizy Pineda SEE WHEELER) Neck Neck Exam: Neck Supple (Lizy Pineda B. SEE WHEELER) Pulmonary Resp Exam: Breath Sounds Equal, No Distress, Crackles, Decreased Bases (Lizy Pineda B. SEE WHEELER) Cardiology CV Exam: Regular, Normal Sinus Rhythm, Good Perfusion (Lizy Pineda B. SEE WHEELER) Gastrointestinal/Abdomen GI Exam: Soft, Non-Tender, Bowel Sounds Present (Lizy Pineda B. SEE WHEELER) Musculoskeletal MS Exam: Joints Intact, Normal Tone, Unable to Ambulate (Lizy PinedaP) Integumentary Skin Exam: Warm, Dry, Intact Skin Remarks left foot ulcer skin is scaly (Lizy PinedaP) Extremeties Extremities Exam: Pedal Pulses Palpable, Moderate Edema, Pitting Edema (Lizy Pineda BOtis PEREAP) Neurologic Neuro Exam: Alert, Awake, Oriented, Speech Clear, Moving All Extremities (Lizy Pineda B. SEE WHEELER) Psychiatric Psych Exam: Appropriate Responses (Lizy Pineda) Assessment/Plan Discussed Condition With: Patient Assessment Summary: FREDI/Acute Renal Failure Problem List: (1) Acute renal failure ICD Codes: N17.9 - Acute kidney failure, unspecified Status: Acute Plan: She apparently has a baseline creatinine of 1mg/dL FREDI from ATN, secondary vancomycin induced nephrotoxicity, allergic interstitial nephritis. May also be due to sepsis HD initiated on 10/13/16, was on on TTS HD schedule although dialyzed Sunday due to Shortness of breath. stat labs have been ordered may need vascath placement and HD today depending on results. Monitor urine output.Although accurate output may not be recorded. repeat labs in AM Avoid nephrotoxic agents. Avoid IVF. Await renal recovery. (2) Sepsis ICD Codes: A41.9 - Sepsis, unspecified organism Plan: + Pseudomonas in the blood, and gram stain of the wound. Currently on Cefepime (x 6 weeks) D/W ID, Midline placement okay (3) Metabolic acidosis ICD Codes: E87.2 - Acidosis Status: Acute Plan: Corrected, monitor (4) Anemia ICD Codes: D64.9 - Anemia Status: Acute Plan: Hb improved, monitor (5) Vitamin D deficiency ICD Codes: E55.9 - Vitamin D deficiency, unspecified Plan: replacement ordered (6) Itching ICD Codes: L29.9 - Pruritus, unspecified Plan: on Benadryl cream also Vistaril PRN with daily Claritin (Lizy Pineda) Plan patient was seen and examined. Agree with above assessment and plan. Dialysis if necessary. Labs are pending. (Francisco Javier Quiros MD) Problem Qualifiers (1) Acute renal failure: Qualified Codes: N17.9 - Acute kidney failure, unspecified (2) Anemia: Qualified Codes: D64.9 - Anemia, unspecified Lizy Pineda Nov 06, 2016 10:27 Francisco Javier Quiros MD Nov 06, 2016 11:24
--- NOTE | 2016-11-06 11:09 | HHI.PR ---
Subjective Remarks in no distress. resting comfortably. itching is better. no new complaints. Objective Vitals Vital Signs Date Time Temp Pulse Resp B/P (MAP) Pulse Ox O2 Delivery O2 Flow Rate FiO2 11/06/16 08:00 97.8 98 20 164/81 (108) 95 11/06/16 06:59 178/90 (119) 11/06/16 05:47 98.4 97 20 186/102 (130) 96 11/06/16 00:00 Room Air 11/06/16 00:00 97.8 93 20 166/71 (102) 94 11/05/16 22:50 98.3 91 18 174/84 (114) 95 11/05/16 21:19 21 11/05/16 20:15 Room Air 11/05/16 20:00 90 11/05/16 16:00 97.9 85 18 166/79 (108) 99 11/05/16 12:00 98.1 94 18 189/96 (127) 97 I/O 11/05/16 11/05/16 11/05/16 11/06/16 11/06/16 11/06/16 07:00 15:00 23:00 07:00 15:00 23:00 Intake Total 210 ml 480 ml 480 ml Balance 210 ml 480 ml 480 ml Intake Oral 210 ml 480 ml 480 ml # Voids 1 1 # Bowel Movements 1 Result Diagram: 11/03/16 0649 11/05/16 0703 Imaging Last Impressions Liver Ultrasound 10/23/16 0000 Signed Impressions: Service Date/Time: Sunday, October 23, 2016 09:45 - CONCLUSION: 1. Gallbladder sludge 2. No evidence of biliary duct dilatation 3. Otherwise unremarkable exam. Jaiden Weston MD Head CT 10/19/16 1700 Signed Impressions: Service Date/Time: October 17:01 - CONCLUSION: No acute intracranial findings Ricco Kulkarni MD Head Magnetic Resonance Angiography 10/18/16 0000 Signed Impressions: Service Date/Time: Tuesday, October 18, 2016 16:23 - CONCLUSION: Normal examination. Ricco Kulkarni MD Chest X-Ray 10/18/16 0000 Signed Impressions: Service Date/Time: Tuesday, October 18, 2016 14:59 - CONCLUSION: 1. Mild to moderate pulmonary vascular congestion. 2. Cardiomegaly. 3. Elevation of the right hemidiaphragm. 4. Endotracheal tube in good position 3 cm above the elsie. 5. Left internal jugular VasCath and left subclavian central line are stable in positions. Raymond Smith MD Brain MRI 10/18/16 Signed Impressions: Service Date/Time: Tuesday, October 18, 2016 16:11 - CONCLUSION: Nonspecific white matter signal change in the left frontal region. No evidence of acute stroke. Ricco Kulkarni MD Ankle X-Ray 10/14/16 Signed Impressions: Service Date/Time: Friday, October 14, 2016 17:01 - CONCLUSION: Marked soft tissue swelling with subcutaneous calcifications. Negative for fracture. Roman Montiel MD FACR Upper Extremity Ultrasound 10/13/16 Signed Impressions: Service Date/Time: Thursday, October 13, 2016 09:17 - CONCLUSION: 1. No DVT. 2. Subcutaneous edema observed. Wilner Potter Jr., MD Lower Extremity Ultrasound 10/13/16 Signed Impressions: Service Date/Time: Thursday, October 13, 2016 08:57 - CONCLUSION: 1. Study has some limitations as detailed above. No DVT observed. Wilner Potter Jr., MD Lower Extremity CT 10/13/16 Signed Impressions: Service Date/Time: Thursday, October 13, 2016 21:35 - CONCLUSION: Ulcer at the region of the base of the fifth metatarsal. There appears to be chronic and acute changes in this region. The acute changes are worrisome for osteomyelitis at the base of the fifth metatarsal. Ricco Fuentes MD Chest CT 10/13/16 Signed Impressions: Service Date/Time: Thursday, October 13, 2016 21:27 - CONCLUSION: 1. Patchy areas of consolidation seen bilaterally being worse on the right. These could represent areas of inflammatory/infectious disease. Focal round lesions to suggest septic emboli are not clearly identified. 2. Edema seen at the right superficial chest and abdomen regions. The cause of for this asymmetric edema is not known. 3. Mild ascites. Ricco Fuentes MD Abdomen CT 10/13/16 Signed Impressions: Service Date/Time: Thursday, October 13, 2016 21:27 - CONCLUSION: 1. Mild ascites seen around the liver. 2. Superficial edema seen bilaterally in the subcutaneous tissues. This is asymmetric and being much more prominent on the right. 3. Small area of increased density seen independently in the gallbladder representing either small gallstones or milk of calcium. Ricco Fuentes MD Renal Ultrasound 10/12/16 0000 Signed Impressions: Service Date/Time: September 20:54 - CONCLUSION: Normal appearance of the kidneys. Ricco Fuentes MD Objective Remarks GENERAL: This is a well-nourished, well-developed patient, in no apparent distress. CARDIOVASCULAR: Regular rate and regular rhythm without murmurs, gallops, or rubs. RESPIRATORY: Clear to auscultation. Breath sounds equal bilaterally. No wheezes , rales, or rhonchi. GASTROINTESTINAL: Abdomen soft, non-tender, nondistended. Normal, active bowel sounds MUSCULOSKELETAL: Extremities without clubbing, cyanosis, or edema. NEURO: Alert & Oriented x4 to person, place, time, situation. Moves all ext x4 Medications and IVs Current Medications Sodium Chloride 1,000 ml @ 999 mls/hr BOLUS ONCE IV Last administered on 10/12 18:59; Start 10/12/16 at 18:15; Stop 10/12/16 at 19:15; Status DC Sodium Bicarbonate 150 meq/Sterile Water 1,000 ml @ 100 mls/hr Q10H IV Last administered on 10/12/16 23:39; Start 10/12/16 at 20:15; Stop 10/13/16 at 05:52 ; Status DC Sodium Chloride (NS Flush) 2 ml UNSCH PRN IV FLUSH FLUSH AFTER USING IV ACCESS ; Start 10/12/16 at 20:15 Sodium Chloride (NS Flush) 2 ml BID IV FLUSH Last administered on 11/06/16 09: 50; Start 10/12/16 at 21:00 Heparin Sodium (Porcine) (Heparin Inj) 5,000 units Q8H SQ Last administered on 10/18/16 12:42; Start 10/13/16 at 06:00; Stop 10/18/16 at 15:57; Status DC Naloxone HCl (Narcan Inj) 0.4 mg UNSCH PRN IV SEE LABEL COMMENTS; Start at 20:15 Calcium Gluconate (Calcium Gluconate Inj) 1 gm ONCE ONCE IV PUSH ; Start at 20:15; Stop 10/12/16 at 21:51; Status DC Insulin Human Regular (NovoLIN R INJ) 10 units ONCE ONCE IV PUSH Last administered on 10/12/16 23:54; Start 10/12/16 at 20:15; Stop 10/12/16 at 21:53 ; Status DC Dextrose (D50w (Syr) Inj) 50 ml ONCE ONCE IV PUSH Last administered on 23:53; Start 10/12/16 at 20:15; Stop 10/12/16 at 21:52; Status DC Sodium Polystyrene Sulfonate (Kayexalate Liq) 30 gm ONCE ONCE PO Last administered on 10/12/16 23:40; Start 10/12/16 at 20:15; Stop 10/12/16 at 21:54 ; Status DC Dextrose (D50w (Vial) Inj) 50 ml UNSCH PRN IV HYPOGLYCEMIA-SEE COMMENTS; Start 10/12/16 at 20:15; Stop 10/13/16 at 07:33; Status DC Glucagon (Glucagon Inj) 1 mg UNSCH PRN OTHER HYPOGLYCEMIA-SEE COMMENTS; Start 10/12/16 at 20:15 Insulin Aspart (NovoLOG SUPPLEMENTAL SCALE) 1 ACHS SLIDING SCALE SQ ; Start at 21:00; Stop 10/13/16 at 07:30; Status DC Calcium Gluconate 1 gm/Sodium Chloride 110 ml @ 110 mls/hr ONCE ONCE IV Last administered on 10/12/16 23:54; Start 10/12/16 at 23:00; Stop 10/12/16 at 23:59 ; Status DC Ipratropium [place] (Atrovent Neb) 0.5 mg Q6HR NEB NEB Last administered on 15:09; Start 10/13/16 at 04:00; Stop 11/06/16 at 09:29; Status DC Ipratropium [place] (Atrovent Neb) 0.5 mg Q2HR NEB PRN NEB wheezing; Start 10/13 at 00:45 Amitriptyline HCl (Elavil) 50 mg HS PO ; Start 10/13/16 at 21:00; Stop 10/13/16 at 21:00; Status DC Hydralazine HCl (Apresoline) 100 mg TID PO ; Start 10/13/16 at 09:00; Stop at 09:00; Status DC Insulin Detemir (Levemir Inj) 20 units AC BREAKFAST SQ ; Start 10/13/16 at 07:00 ; Stop 10/13/16 at 07:00; Status DC Insulin Detemir (Levemir Inj) 25 units HS SQ ; Start 10/13/16 at 21:00; Stop 10/13 at 21:00; Status DC Labetalol HCl (Trandate) 200 mg TID PO ; Start 10/13/16 at 09:00; Stop 10/13/16 at 09:00; Status DC Lactobacillus Acidophilus (Lactinex) 1 tab TIDAC PO Last administered on 09:48; Start 10/13/16 at 08:00 Loratadine (Claritin) 10 mg DAILY PO ; Start 10/13/16 at 09:00; Stop 10/13/16 at 09:00; Status DC Montelukast Sodium (Singulair) 10 mg HS PO ; Start 10/13/16 at 21:00; Stop at 21:00; Status DC Nifedipine (Procardia Xl) 60 mg TID PO ; Start 10/13/16 at 09:00; Stop 10/13/16 at 09:00; Status DC Pravastatin Sodium (Pravachol) 40 mg DAILY PO ; Start 10/13/16 at 09:00; Stop 10/13/16 at 09:00; Status DC Sodium Chloride 1,000 ml @ 999 mls/hr BOLUS ONCE IV Last administered on t 05:42; Start 10/13/16 at 04:45; Stop 10/13/16 at 05:45; Status DC Sodium Bicarbonate 150 meq/Dextrose 1,150 ml @ 75 mls/hr [id number] IV ; Start 10/13/16 at 08:00; Stop 10/13/16 at 08:00; Status DC Norepinephrine Bitartrate 250 ml @ As Directed STK-MED ONCE IV ; Start 10/13/16 at 07:25; Stop 10/13/16 at 07:26; Status DC Norepinephrine Bitartrate 250 ml @ 7.5 mls/hr TITRATE PRN IV Blood pressure management; Start 10/13/16 at 07:30; Status UNV Terbutaline Sulfate (Brethine Inj) 1 mg UNSCH PRN SQ For Extravasation; Start 10/13/16 at 07:30; Stop 10/28/16 at 11:24; Status DC Sodium Bicarbonate (Sodium Bicarbonate 8.4% Inj) 200 meq ONCE ONCE IV PUSH Last administered on 10/13/16 07:30; Start 10/13/16 at 07:30; Stop 10/13/16 at 07: 35; Status DC Dextrose (D50w (Vial) Inj) 25 ml UNSCH PRN IV PUSH HYPOGLYCEMIA-SEE COMMENTS; Start 10/13/16 at 07:30 Insulin Human Regular (NovoLIN R SUPPLEMENTAL SCALE) 1 Q6HR SQ Last administered on 11/05/16 00:00; Start 10/13/16 at 12:00 Linezolid 300 ml @ 300 mls/hr Q12H IV ; Start 10/13/16 at 08:00; Stop 10/13/16 at 08:07; Status DC Piperacillin Sod/ Tazobactam Sod 50 ml @ 100 mls/hr Q8H IV Last administered on 10/13/16 09:07; Start 10/13/16 at 09:00; Stop 10/13/16 at 14:13; Status DC Norepinephrine Bitartrate 16 mg/ Dextrose 250 ml @ 1.87 mls/hr TITRATE PRN IV Maintain MAP > 65 mmHg; Start 10/13/16 at 08:00; Stop 10/28/16 at 11:24; Status DC Epinephrine HCl 2 mg/Dextrose 252 ml @ 15.12 mls/ hr TITRATE PRN IV Blood Pressure Management; Start 10/13/16 at 08:15; Stop 10/13/16 at 08:47; Status DC Ketamine HCl (Ketalar Inj) 50 mg STAT ONCE IV PUSH ; Start 10/13/16 at 08:15; Stop 10/13/16 at 08:33; Status DC Midazolam HCl (Versed Inj) 2 mg STAT ONCE IV PUSH ; Start 10/13/16 at 08:15; Stop 10/13/16 at 08:31; Status DC Clindamycin Phosphate 900 mg/ Sodium Chloride 106 ml @ 212 mls/hr Q8H IV Last administered on 10/13/16 09:07; Start 10/13/16 at 09:00; Stop 10/13/16 at 13:55; Status DC Epinephrine HCl 8 mg/Dextrose 250 ml @ 5.62 mls/hr TITRATE PRN IV Blood Pressure Management Last administered on 10/13/16 09:07; Start 10/13/16 at 09:00 ; Stop 10/28/16 at 11:24; Status DC Sodium Bicarbonate (Sodium Bicarbonate 8.4% Inj) 200 meq ONCE ONCE IV PUSH Last administered on 10/13/16 11:43; Start 10/13/16 at 11:30; Stop 10/13/16 at 11: 31; Status DC Etomidate (Amidate Inj) 20 mg ONCE ONCE IV PUSH ; Start 10/13/16 at 13:15; Stop 10/13/16 at 14:37; Status DC Midazolam HCl (Versed Inj) 5 mg ONCE ONCE IV PUSH Last administered on 13:15; Start 10/13/16 at 13:15; Stop 10/13/16 at 14:37; Status DC Rocuronium [place] (Zemuron Inj) 100 mg BOLUS ONCE IV Last administered on 10/13 13:15; Start 10/13/16 at 13:15; Stop 10/13/16 at 14:37; Status DC Midazolam HCl (Versed Inj) 5 mg STK-MED ONCE .ROUTE Last administered on 13:20; Start 10/13/16 at 13:20; Stop 10/13/16 at 13:21; Status DC Micafungin Sodium 150 mg/Sodium Chloride 100 ml @ 100 mls/hr Q24H IV Last administered on 10/16/16 16:12; Start 10/13/16 at 17:00; Stop 10/16/16 at 17:40; Status DC Daptomycin 1000 mg/Sodium Chloride 100 ml @ 200 mls/hr Q48H IV Last administered on 10/27/16 16:58; Start 10/13/16 at 16:00; Stop 10/30/16 at 15:59 ; Status DC Cefepime HCl 1000 mg/Sodium Chloride 100 ml @ 200 mls/hr Q24H IV Last administered on 11/05/16 13:53; Start 10/13/16 at 15:00 Metronidazole 100 ml @ 100 mls/hr Q8H IV Last administered on 10/16/16 15:13; Start 10/13/16 at 16:00; Stop 10/16/16 at 17:40; Status DC Propofol 100 ml @ As Directed STK-MED ONCE .ROUTE ; Start 10/13/16 at 15:31; Stop 10/13/16 at 15:32; Status DC Sodium Chloride 1,000 ml @ 0 mls/hr Q0M PRN OTHER For Prime & Rinse Back Last administered on 10/21/16 10:43; Start 10/13/16 at 15:54 Heparin Sodium (Porcine) (Heparin Inj) 8,000 units UNSCH PRN IVF WITH DIALYSIS ; Start 10/13/16 at 16:00 Sodium Chloride 1,000 ml @ 200 mls/hr Q5H PRN IV WITH DIALYSIS Last administered on 11/03/16 17:23; Start 10/13/16 at 15:54 Sodium Chloride 1,000 ml @ 0 mls/hr Q0M PRN OTHER WITH DIALYSIS; Start 10/13/16 at 15:54 Mannitol (Mannitol Inj) 12.5 gm UNSCH PRN IV WITH DIALYSIS; Start 10/13/16 at 16 :00 Albumin Human (Albumin 25% Inj) 25 gm UNSCH PRN IV WITH DIALYSIS Last administered on 10/14/16 08:19; Start 10/13/16 at 16:00 Sodium Chloride (NS Flush) 5 ml UNSCH PRN IV FLUSH WITH DIALYSIS Last administered on 10/21/16 10:42; Start 10/13/16 at 16:00 Heparin Sodium (Porcine) (Heparin Inj) UNSCH PRN .XX WITH DIALYSIS Last administered on 11/03/16 17:23; Start 10/13/16 at 16:00 Gentamicin Sulfate (Gentamicin (Dialysis) Inj) 20 mg UNSCH PRN IV WITH DIALYSIS Last administered on 11/03/16 17:23; Start 10/13/16 at 16:00 Ondansetron HCl (Zofran Inj) 4 mg UNSCH PRN IV WITH DIALYSIS; Start 10/13/16 at 16:00 Acetaminophen (Tylenol) 650 mg UNSCH PRN PO for headach, pain, temp > 101F Last administered on 10/21/16 20:36; Start 10/13/16 at 16:00 Diphenhydramine HCl (Benadryl) 25 mg UNSCH PRN PO for hives/itching/ anaphylaxis Last administered on 10/28/16 06:35; Start 10/13/16 at 16:00; Stop 11/01/16 at 11:23; Status DC Nitroglycerin (Nitrostat Sl) 0.4 mg UNSCH PRN SL CHEST PAIN; Start 10/13/16 at 16:00 Clonidine (Catapres) 0.1 mg UNSCH PRN PO for BP > 180/100 X 2 readings Last administered on 10/29/16 16:52; Start 10/13/16 at 16:00; Stop 10/29/16 at 20:11 ; Status DC Gelatin (Gelfoam 12 Mm/7 Mm Top) 1 foam UNSCH PRN TOP SEE LABEL COMMENTS Last administered on 10/15/16 10:39; Start 10/13/16 at 16:00 Propofol 100 ml @ As Directed STK-MED ONCE .ROUTE ; Start 10/13/16 at 18:39; Stop 10/13/16 at 18:40; Status DC Propofol 100 ml @ 4.128 mls/ hr TITRATE PRN IV SEDATION Last administered on 13:36; Start 10/13/16 at 19:15; Stop 10/28/16 at 11:24; Status DC Famotidine (Pepcid Liq) 20 mg BID NG Last administered on 10/15/16 09:19; Start 10/14/16 at 21:00; Stop 10/15/16 at 10:04; Status DC Silver Nitrate/ Potassium Nitrate (Silver Nitrate Applicators) 1 appl UNSCH X1 ONCE TOPICAL Last administered on 10/15/16 09:19; Start 10/15/16 at 09:00; Stop 10/15/16 at 09:01; Status DC Famotidine (Pepcid Liq) 10 mg BID NG Last administered on 10/21/16 09:00; Start 10/15/16 at 21:00; Stop 10/21/16 at 20:09; Status DC Diphenhydramine HCl (Benadryl) 25 mg BID PO Last administered on 10/17/16 08:55 ; Start 10/15/16 at 21:00; Stop 10/17/16 at 09:01; Status DC Dexamethasone Sodium Phosphate (Decadron Inj) 4 mg Q6HR IV PUSH Last administered on 10/16/16 17:57; Start 10/16/16 at 10:00; Stop 10/16/16 at 18:01; Status DC Hydralazine HCl (Apresoline Inj) 20 mg Q3H PRN IV PUSH SBP > 170 Last administered on 11/04/16 15:55; Start 10/16/16 at 15:45 Labetalol HCl (Trandate Inj) 20 mg Q3H PRN IV PUSH SBP > 160 Last administered on 11/01/16 12:39; Start 10/16/16 at 15:45 Atropine Sulfate (Atropine Inj) 1 mg STK-MED ONCE IV ; Start 10/13/16 at 05:00; Stop 10/17/16 at 11:07; Status DC Sodium Bicarbonate (Sodium Bicarbonate 8.4% Inj) 50 meq STK-MED ONCE IV ; Start 10/13/16 at 05:00; Stop 10/17/16 at 11:08; Status DC Sodium Chloride 250 ml @ 15 mls/hr ONCE ONCE IV ; Start 10/18/16 at 09:30; Stop 10/19/16 at 02:09; Status DC Epinephrine HCl (EPINEPHrine (1:10,000) INJ) 1 mg STK-MED ONCE .ROUTE ; Start at 14:51; Stop 10/18/16 at 14:52; Status DC Alteplase, Recombinant (Activase Bolus) 9 mg ONCE ONCE IV Last administered on 10/18/16 16:00; Start 10/18/16 at 16:00; Stop 10/18/16 at 16:03; Status DC Alteplase, Recombinant 81 mg/ Syringe / Bag 81 ml @ 81 mls/hr ONCE ONCE IV Last administered on 10/18/16 16:01; Start 10/18/16 at 16:00; Stop 10/18/16 at 16: 59; Status DC Sodium Chloride (NS Inj) 30 ml ONCE ONCE IVF Last administered on 10/18/16 16: 00; Start 10/18/16 at 16:00; Stop 10/18/16 at 16:02; Status DC Miscellaneous Information No Heparin, Warfarin, Aspir... UNSCH PRN XX SEE DOSE INSTRUCTIONS; Start 10/18/16 at 16:00; Stop 10/19/16 at 15:59; Status DC Micafungin Sodium 150 mg/Sodium Chloride 100 ml @ 100 mls/hr Q24H IV Last administered on 10/18/16 18:32; Start 10/18/16 at 18:00; Stop 10/19/16 at 14:43; Status DC Chlorhexidine Gluconate (Peridex 0.12% Liq) 15 ml BID@08,20 MT Last administered on 10/28/16 10:50; Start 10/18/16 at 20:00 Dexamethasone Sodium Phosphate (Decadron Inj) 4 mg STAT ONCE IV PUSH Last administered on 10/19/16 11:50; Start 10/19/16 at 11:15; Stop 10/19/16 at 11:16; Status DC Racepinephrine (Racepinephrine 2.25% Neb) 0.5 ml STK-MED ONCE .ROUTE ; Start 10/19/16 at 13:19; Stop 10/19/16 at 13:20; Status DC Diphenhydramine HCl (Benadryl) 25 mg Q6H PRN PO ITCHING Last administered on 11:57; Start 10/21/16 at 15:30; Stop 10/23/16 at 10:29; Status DC Famotidine (Pepcid) 10 mg BID PO Last administered on 11/06/16 09:48; Start at 21:00 Calamine (Calamine Lotion) 1 applic Q6H PRN TOPICAL irritated skin Last administered on 11/03/16 20:36; Start 10/21/16 at 22:30 Thiamine HCl (Vitamin B1) 100 mg DAILY PO Last administered on 11/06/16 09:48 ; Start 10/23/16 at 09:00 Diphenhydramine HCl (Benadryl) 50 mg Q6H PRN PO ITCHING Last administered on 05:33; Start 10/23/16 at 15:30; Stop 11/01/16 at 11:23; Status DC Senna/Docusate Sodium (Maira-Colace) 2 tab ONCE ONCE PO Last administered on 12:11; Start 10/23/16 at 10:30; Stop 10/23/16 at 11:05; Status DC Magnesium Hydroxide (Milk Of Magnesia Liq) 30 ml ONCE ONCE PO Last administered on 10/23/16 12:11; Start 10/23/16 at 10:30; Stop 10/23/16 at 11:06 ; Status DC Senna/Docusate Sodium (Maira-Colace) 1 tab BID PO Last administered on 09:48; Start 10/23/16 at 21:00 Lactic Acid (Lac-Hydrin 12% Lotion) 1 applic BID TOPICAL Last administered on 09:00; Start 10/23/16 at 21:00 Cholecalciferol (Vitamin D3) 5,000 units DAILY PO Last administered on 09:48; Start 10/24/16 at 09:00 Cholecalciferol (Vitamin D3) 10,000 units ONCE ONCE PO Last administered on 18:06; Start 10/23/16 at 17:45; Stop 10/23/16 at 17:46; Status DC Senna/Docusate Sodium (Maira-Colace) 1 tab BID PO ; Start 10/24/16 at 21:00; Stop 10/24/16 at 21:00; Status DC Fluconazole (Diflucan) 100 mg Q48H PO Last administered on 10/30/16 18:01; Start 10/24/16 at 17:00; Stop 10/30/16 at 18:24; Status DC Hydralazine HCl (Apresoline) 25 mg Q12HR PO Last administered on 10/28/16 10: 48; Start 10/26/16 at 11:30; Stop 10/28/16 at 13:51; Status DC Diphenhydramine HCl (Benadryl 2% Cream) APPLY TO AFFECTED AREA Q4H PRN TOPICAL ITCHING; Start 10/27/16 at 17:30 Nifedipine (Procardia Xl) 30 mg ONCE ONCE PO Last administered on 10/28/16 18 :37; Start 10/28/16 at 14:30; Stop 10/28/16 at 14:31; Status DC Hydralazine HCl (Apresoline) 25 mg Q8H PO Last administered on 10/31/16 08:25 ; Start 10/28/16 at 16:00; Stop 10/31/16 at 10:30; Status DC Multi-Ingredient Ointment (Eucerin Cream) 1 applic Q6H PRN TOPICAL DRY SKIN Last administered on 11/05/16 20:27; Start 10/29/16 at 12:15 Nifedipine (Procardia Xl) 30 mg DAILY PO Last administered on 11/01/16 09:28; Start 10/29/16 at 12:15; Stop 11/01/16 at 12:00; Status DC Clonidine (Catapres) 0.1 mg Q8H PRN PO for BP > 180/100 X 2 readings Last administered on 11/06/16 05:49; Start 10/29/16 at 20:15 Metoprolol Tartrate (Lopressor) 25 mg DAILY PO Last administered on 11/06/16 09:48; Start 10/30/16 at 10:00 Potassium Chloride (KCl) 30 meq ONCE ONCE PO Last administered on 10/30/16 13 :40; Start 10/30/16 at 11:45; Stop 10/30/16 at 11:46; Status DC Potassium Chloride (KCl) 20 meq ONCE ONCE PO Last administered on 10/30/16 18 :01; Start 10/30/16 at 14:30; Stop 10/30/16 at 14:31; Status DC Hydralazine HCl (Apresoline) 50 mg Q8HR PO Last administered on 11/02/16 05:12 ; Start 10/31/16 at 14:00; Stop 11/02/16 at 10:25; Status DC Hydroxyzine HCl (Atarax) 25 mg Q6H PRN PO ITCHING Last administered on 05:49; Start 11/01/16 at 11:30 Loratadine (Claritin) 10 mg DAILY PO Last administered on 11/06/16 09:48; Start 11/01/16 at 11:30 Nifedipine (Procardia Xl) 60 mg DAILY PO Last administered on 11/04/16 09:07; Start 11/02/16 at 09:00; Stop 11/04/16 at 11:40; Status DC Hydralazine HCl (Apresoline) 75 mg Q8HR PO Last administered on 11/03/16 05:30 ; Start 11/02/16 at 14:00; Stop 11/03/16 at 10:51; Status DC Hydralazine HCl (Apresoline) 100 mg Q8HR PO Last administered on 11/06/16 05: 48; Start 11/03/16 at 14:00 Nifedipine (Procardia Xl) 30 mg ONCE ONCE PO Last administered on 11/04/16 12 :04; Start 11/04/16 at 11:45; Stop 11/04/16 at 11:51; Status DC Nifedipine (Procardia Xl) 90 mg DAILY PO Last administered on 11/05/16 10:02; Start 11/05/16 at 09:00; Stop 11/05/16 at 10:46; Status DC Nifedipine (Procardia Xl) 30 mg ONCE ONCE PO Last administered on 11/05/16 18 :41; Start 11/05/16 at 18:00; Stop 11/05/16 at 18:01; Status DC Nifedipine (Procardia Xl) 60 mg Q12HR PO Last administered on 11/06/16 09:48; Start 11/06/16 at 09:00 A/P Assessment and Plan A/P Suspected stroke alert with acute change in neurologic status 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 Patient was administered IV thrombolysis following evaluation by neurology Dr. Burton in view of concern for brain stem CVA while awaiting MRI brain on 10/18. Subsequently MRI/MRA brain unremarkable. - Urine tox screen came back positive for benzodiazepines placing concern for surreptitious benzodiazepine use as she does not have any benzodiazepine listed on her APR. non-sustained V-tach started on lopressor- echo with EF 60%. continue to monitor. Obesity Hypoventilation Syndrome COPD Sleep Apnea Acute hypoxic and hypercarbic respiratory failure- persistent, no improvement. Pulmonary Edema - intubated and then extubated 10/16. -Emergently intubated on 10/18 for airway protection due to altered mental status. Extubated on 10/19- now stable. Septic Shock- resolved. pseudomonas bacteremia Severe Tricuspid Regurgitation IV antibiotics per ID recommendations; on Cefepime. Acute kidney injury requiring renal replacement therapy - nephrology following - HD per nephrology; awaiting renal recovery. -monitor the renal function. -- Strict IOs Chronic anemia- likely secondary to chronic disease LLE osteomyelitis Pseudomonas bacteremia Gram Positive Bacteremia Pseudomonas osteomyelitis Fungal Urinary Tract Infection -Recommend transfusions of PRBCs to keep hemoglobin above 7 g percent. - ID following. - continue antibiotics per ID. Diabetes -Vitamin D deficiency. -- Patient had low vitamin D and was started on cholecalciferol. -- continue accu-check with sliding scale. hypertension-uncontrolled increase Procardia XL to 60 mg po twice daily- continue metoprolol and hydralazine continue to monitor and adjust the regimen as needed. GI Prophylaxis pepcid DVT Prophylaxis -- SCDs resume Sub-cutaneous heparin if no procedures planned. Discharge Planning when cleared by ID and nephrology. Roseanna Murphy MD Nov 06, 2016 11:09
[2016-11-06 13:07] LABS: BICARBONATE 26.7 MEQ/L (21.0-32.0); POTASSIUM 3.2 MEQ/L (3.5-5.1)
[2016-11-06] MEDS: CEFEPIME INJ 1,000 MG in SODIUM CHLORIDE 0.9% INJ 100 ML IV SCH (13:23)
[2016-11-07] VITALS (8 sets, daily range): BP systolic 150–182; BP diastolic 55–98; PULSE 67–99; RESP 16–20; TEMP 97.6–98.8; O2SAT 95–100
[2016-11-07] MEDS: hydrOXYzine HCL 25 MG TAB PO PRN ×4 (02:07→23:56)
[2016-11-07] MEDS: cloNIDine HCL 0.1 MG TAB PO PRN ×2 (04:38→23:56)
[2016-11-07] MEDS: hydrALAZINE HCL 100 MG TAB PO SCH ×3 (05:42→21:13)
[2016-11-07] MEDS: INSULIN NovoLIN REGULAR SUPPLEMENTAL SCALE SQ SCH ×5 (05:44→23:44)
[2016-11-07] MEDS: CHLORHEXIDINE 0.12% (ORAL KIT) 15 ML CUP MT SCH ×2 (08:00→20:00)
[2016-11-07 08:48] LABS: BICARBONATE 26.8 MEQ/L (21.0-32.0)
[2016-11-07] MEDS: DOCUSATE SODIUM 50 MG/SENNA 8.6 MG TAB PO SCH ×2 (09:00→21:00)
[2016-11-07] MEDS: SODIUM CHLORIDE 0.9% FLUSH 10 ML FLUSH IV FLUSH SCH ×2 (09:00→21:15)
[2016-11-07] MEDS: LACTIC ACID (AMMONIUM LACTATE) 12% LOTION 225 GM BTL TOPICAL SCH ×2 (09:00→21:00)
[2016-11-07] MEDS: LACTOBACILLUS ACIDOPHILUS TAB PO SCH ×3 (09:24→17:08)
[2016-11-07] MEDS: THIAMINE HCL 100 MG TAB PO SCH (09:24)
[2016-11-07] MEDS: LORATADINE 10 MG TAB PO SCH (09:24)
[2016-11-07] MEDS: CHOLECALCIFEROL (VIT D3) 5000 UNIT CAP PO SCH (09:25)
[2016-11-07] MEDS: NIFEdipine 60 MG SUSTAINED RELEASE TAB PO SCH ×2 (09:25→21:12)
[2016-11-07] MEDS: METOPROLOL TARTRATE 25 MG TAB PO SCH (09:25)
[2016-11-07] MEDS: FAMOTIDINE 20 MG TAB PO SCH ×2 (09:25→21:13)
[2016-11-07] MEDS ORDERED: POTASSIUM CHLORIDE 10 MEQ CONTROLLED RELEASE TAB PO ONE (09:30)
--- NOTE | 2016-11-07 10:17 | HHI.NPPN ---
Subjective General Problems: Anemia Renal Failure: Acute Interval History She has began to urinate more. Creatinine only slightly higher without dialysis. She is motivated today. (Lizy Pineda) Review of Systems General Constitutional: Fatigue (Lizy Pineda) Eyes Eyes: Itching (Lizy Pineda) Ears, Nose, & Throat ENT Remarks loss of appetite (Lizy Pineda) Respiratory Lungs: SOB (Lizy Pineda) Cardiovascular Cardiac: Edema (Lizy Pineda) Endocrine Endocrine: Thirst (Lizy Pineda) Skin Skin: Skin Rash, Ulcers Skin Remarks generalized rash with peeling skin; ulcer planter surface left foot (Lizy Pineda) Objective Data Data Vital Signs Date Time Temp Pulse Resp B/P (MAP) Pulse Ox O2 Delivery O2 Flow Rate FiO2 11/07/16 08:00 98.7 97 20 172/81 (111) 98 11/07/16 05:45 172/98 (122) 11/07/16 04:00 Room Air 11/07/16 04:00 97.6 99 16 182/90 (120) 95 11/07/16 00:00 97.8 94 16 150/72 (98) 98 11/07/16 00:00 Room Air 11/06/16 22:00 97.7 103 17 175/83 (113) 94 11/06/16 21:55 Room Air 11/06/16 20:07 90 11/06/16 17:39 93 11/06/16 16:00 98.2 90 16 176/95 (122) 98 11/06/16 12:00 98.3 87 18 171/81 (111) 99 (Lizy Pineda) -: 11/03/16 0649 11/07/16 0710 Physical Exam General Appearance: No Acute Distress, Comfortable, Obese (Lizy Pineda) Eyes Eye Exam: Pupils Equal (Lizy Pineda) Throat Throat Exam: Oral Mucosa Sealy & Moist (Lizy Pineda) Neck Neck Exam: Neck Supple (Lizy Pineda) Pulmonary Resp Exam: Clear Bilaterally, Breath Sounds Equal, No Distress, Decreased Bases (Lizy Pineda) Cardiology CV Exam: Regular, Normal Sinus Rhythm, Good Perfusion (Lizy Pineda) Gastrointestinal/Abdomen GI Exam: Soft, Non-Tender, Bowel Sounds Present (Lizy Pineda) Musculoskeletal MS Exam: Joints Intact, Normal Tone, Unable to Ambulate (Lizy Pineda) Integumentary Skin Exam: Warm, Dry, Intact Skin Remarks left foot ulcer skin is scaly (Lizy Pineda) Extremeties Extremities Exam: Pedal Pulses Palpable, Moderate Edema, Pitting Edema (Lizy Pineda) Neurologic Neuro Exam: Alert, Awake, Oriented, Speech Clear, Moving All Extremities (Lizy Pineda) Psychiatric Psych Exam: Appropriate Responses (Lizy Pineda) Assessment/Plan Discussed Condition With: Patient Assessment Summary: FREDI/Acute Renal Failure Problem List: (1) Acute renal failure ICD Codes: N17.9 - Acute kidney failure, unspecified Status: Acute Plan: She apparently has a baseline creatinine of 1mg/dL FREDI from [facility], secondary vancomycin induced nephrotoxicity, allergic interstitial nephritis. May also be due to sepsis HD initiated on 10/13/16, last HD 11/03. she appears to be making more urine, may be in recovery phase. Potassium replacement ordered PO Repeat labs in AM Avoid nephrotoxic agents. Avoid IVF. Await renal recovery. (2) Sepsis ICD Codes: A41.9 - Sepsis, unspecified organism Plan: + Pseudomonas in the blood, and gram stain of the wound. Currently on Cefepime (x 6 weeks) D/W ID, Midline placement okay (3) Metabolic acidosis ICD Codes: E87.2 - Acidosis Status: Acute Plan: Corrected, monitor (4) Anemia ICD Codes: D64.9 - Anemia Status: Acute Plan: Hb improved, monitor (5) Vitamin D deficiency ICD Codes: E55.9 - Vitamin D deficiency, unspecified Plan: replacement ordered (6) Itching ICD Codes: L29.9 - Pruritus, unspecified Plan: on Benadryl cream also Vistaril PRN with daily Claritin (Lizy Pineda) Plan patient was seen and examined. Agree with above assessment and plan. Dialysis will be deferred. (Francisco Javier Quiros MD) Problem Qualifiers (1) Acute renal failure: Qualified Codes: N17.9 - Acute kidney failure, unspecified (2) Anemia: Qualified Codes: D64.9 - Anemia, unspecified Lizy Pineda Nov 07, 2016 10:17 Francisco Javier Quiros MD Nov 07, 2016 10:44
--- NOTE | 2016-11-07 11:56 | HHI.PR ---
Subjective Remarks in no distress. denies pain. itching is better. no new complaints. Objective Vitals Vital Signs Date Time Temp Pulse Resp B/P (MAP) Pulse Ox O2 Delivery O2 Flow Rate FiO2 11/07/16 08:00 98.7 97 20 172/81 (111) 98 11/07/16 05:45 172/98 (122) 11/07/16 04:00 Room Air 11/07/16 04:00 97.6 99 16 182/90 (120) 95 11/07/16 00:00 97.8 94 16 150/72 (98) 98 11/07/16 00:00 Room Air 11/06/16 22:00 97.7 103 17 175/83 (113) 94 11/06/16 21:55 Room Air 11/06/16 20:07 90 11/06/16 17:39 93 11/06/16 16:00 98.2 90 16 176/95 (122) 98 11/06/16 12:00 98.3 87 18 171/81 (111) 99 I/O 11/06/16 11/06/16 11/06/16 11/07/16 11/07/16 11/07/16 07:00 15:00 23:00 07:00 15:00 23:00 Intake Total 480 ml 840 ml 720 ml Balance 480 ml 840 ml 720 ml Intake Oral 480 ml 840 ml 720 ml # Voids 1 4 # Bowel Movements 0 Result Diagram: 11/03/16 0649 11/07/16 0710 Imaging Last Impressions Liver Ultrasound 10/23/16 0000 Signed Impressions: Service Date/Time: Sunday, October 23, 2016 09:45 - CONCLUSION: 1. Gallbladder sludge 2. No evidence of biliary duct dilatation 3. Otherwise unremarkable exam. Jaiden Weston MD Head CT 10/19/16 1700 Signed Impressions: Service Date/Time: October 17:01 - CONCLUSION: No acute intracranial findings Ricco Kulkarni MD Head Magnetic Resonance Angiography 10/18/16 0000 Signed Impressions: Service Date/Time: Tuesday, October 18, 2016 16:23 - CONCLUSION: Normal examination. Ricco Kulkarni MD Chest X-Ray 10/18/16 0000 Signed Impressions: Service Date/Time: Tuesday, October 18, 2016 14:59 - CONCLUSION: 1. Mild to moderate pulmonary vascular congestion. 2. Cardiomegaly. 3. Elevation of the right hemidiaphragm. 4. Endotracheal tube in good position 3 cm above the elsie. 5. Left internal jugular VasCath and left subclavian central line are stable in positions. Raymond Smith MD Brain MRI 10/18/16 Signed Impressions: Service Date/Time: Tuesday, October 18, 2016 16:11 - CONCLUSION: Nonspecific white matter signal change in the left frontal region. No evidence of acute stroke. Ricco Kulkarni MD Ankle X-Ray 10/14/16 Signed Impressions: Service Date/Time: Friday, October 14, 2016 17:01 - CONCLUSION: Marked soft tissue swelling with subcutaneous calcifications. Negative for fracture. Roman Montiel MD FACR Upper Extremity Ultrasound 10/13/16 Signed Impressions: Service Date/Time: Thursday, October 13, 2016 09:17 - CONCLUSION: 1. No DVT. 2. Subcutaneous edema observed. Wilner Potter Jr., MD Lower Extremity Ultrasound 10/13/16 Signed Impressions: Service Date/Time: Thursday, October 13, 2016 08:57 - CONCLUSION: 1. Study has some limitations as detailed above. No DVT observed. Wilner Potter Jr., MD Lower Extremity CT 10/13/16 Signed Impressions: Service Date/Time: Thursday, October 13, 2016 21:35 - CONCLUSION: Ulcer at the region of the base of the fifth metatarsal. There appears to be chronic and acute changes in this region. The acute changes are worrisome for osteomyelitis at the base of the fifth metatarsal. Ricco Fuentes MD Chest CT 10/13/16 Signed Impressions: Service Date/Time: Thursday, October 13, 2016 21:27 - CONCLUSION: 1. Patchy areas of consolidation seen bilaterally being worse on the right. These could represent areas of inflammatory/infectious disease. Focal round lesions to suggest septic emboli are not clearly identified. 2. Edema seen at the right superficial chest and abdomen regions. The cause of for this asymmetric edema is not known. 3. Mild ascites. Ricco Fuentes MD Abdomen CT 10/13/16 Signed Impressions: Service Date/Time: Thursday, October 13, 2016 21:27 - CONCLUSION: 1. Mild ascites seen around the liver. 2. Superficial edema seen bilaterally in the subcutaneous tissues. This is asymmetric and being much more prominent on the right. 3. Small area of increased density seen independently in the gallbladder representing either small gallstones or milk of calcium. Ricco Fuentes MD Renal Ultrasound 10/12/16 0000 Signed Impressions: Service Date/Time: September 20:54 - CONCLUSION: Normal appearance of the kidneys. Ricco Fuentes MD Objective Remarks GENERAL: This is a well-nourished, well-developed patient, in no apparent distress. CARDIOVASCULAR: Regular rate and regular rhythm without murmurs, gallops, or rubs. RESPIRATORY: Clear to auscultation. Breath sounds equal bilaterally. No wheezes , rales, or rhonchi. GASTROINTESTINAL: Abdomen soft, non-tender, nondistended. Normal, active bowel sounds MUSCULOSKELETAL: Extremities without clubbing, cyanosis, or edema. NEURO: Alert & Oriented x4 to person, place, time, situation. Moves all ext x4 Medications and IVs Current Medications Sodium Chloride 1,000 ml @ 999 mls/hr BOLUS ONCE IV Last administered on 10/12 18:59; Start 10/12/16 at 18:15; Stop 10/12/16 at 19:15; Status DC Sodium Bicarbonate 150 meq/Sterile Water 1,000 ml @ 100 mls/hr Q10H IV Last administered on 10/12/16 23:39; Start 10/12/16 at 20:15; Stop 10/13/16 at 05:52 ; Status DC Sodium Chloride (NS Flush) 2 ml UNSCH PRN IV FLUSH FLUSH AFTER USING IV ACCESS ; Start 10/12/16 at 20:15 Sodium Chloride (NS Flush) 2 ml BID IV FLUSH Last administered on 11/07/16 09: 00; Start 10/12/16 at 21:00 Heparin Sodium (Porcine) (Heparin Inj) 5,000 units Q8H SQ Last administered on 10/18/16 12:42; Start 10/13/16 at 06:00; Stop 10/18/16 at 15:57; Status DC Naloxone HCl (Narcan Inj) 0.4 mg UNSCH PRN IV SEE LABEL COMMENTS; Start at 20:15 Calcium Gluconate (Calcium Gluconate Inj) 1 gm ONCE ONCE IV PUSH ; Start at 20:15; Stop 10/12/16 at 21:51; Status DC Insulin Human Regular (NovoLIN R INJ) 10 units ONCE ONCE IV PUSH Last administered on 10/12/16 23:54; Start 10/12/16 at 20:15; Stop 10/12/16 at 21:53 ; Status DC Dextrose (D50w (Syr) Inj) 50 ml ONCE ONCE IV PUSH Last administered on 23:53; Start 10/12/16 at 20:15; Stop 10/12/16 at 21:52; Status DC Sodium Polystyrene Sulfonate (Kayexalate Liq) 30 gm ONCE ONCE PO Last administered on 10/12/16 23:40; Start 10/12/16 at 20:15; Stop 10/12/16 at 21:54 ; Status DC Dextrose (D50w (Vial) Inj) 50 ml UNSCH PRN IV HYPOGLYCEMIA-SEE COMMENTS; Start 10/12/16 at 20:15; Stop 10/13/16 at 07:33; Status DC Glucagon (Glucagon Inj) 1 mg UNSCH PRN OTHER HYPOGLYCEMIA-SEE COMMENTS; Start 10/12/16 at 20:15 Insulin Aspart (NovoLOG SUPPLEMENTAL SCALE) 1 ACHS SLIDING SCALE SQ ; Start at 21:00; Stop 10/13/16 at 07:30; Status DC Calcium Gluconate 1 gm/Sodium Chloride 110 ml @ 110 mls/hr ONCE ONCE IV Last administered on 10/12/16 23:54; Start 10/12/16 at 23:00; Stop 10/12/16 at 23:59 ; Status DC Ipratropium Mora (Atrovent Neb) 0.5 mg Q6HR NEB NEB Last administered on 15:09; Start 10/13/16 at 04:00; Stop 11/06/16 at 09:29; Status DC Ipratropium Mora (Atrovent Neb) 0.5 mg Q2HR NEB PRN NEB wheezing; Start 10/13 at 00:45 Amitriptyline HCl (Elavil) 50 mg HS PO ; Start 10/13/16 at 21:00; Stop 10/13/16 at 21:00; Status DC Hydralazine HCl (Apresoline) 100 mg TID PO ; Start 10/13/16 at 09:00; Stop at 09:00; Status DC Insulin Detemir (Levemir Inj) 20 units AC BREAKFAST SQ ; Start 10/13/16 at 07:00 ; Stop 10/13/16 at 07:00; Status DC Insulin Detemir (Levemir Inj) 25 units HS SQ ; Start 10/13/16 at 21:00; Stop 10/13 at 21:00; Status DC Labetalol HCl (Trandate) 200 mg TID PO ; Start 10/13/16 at 09:00; Stop 10/13/16 at 09:00; Status DC Lactobacillus Acidophilus (Lactinex) 1 tab TIDAC PO Last administered on t 09:24; Start 10/13/16 at 08:00 Loratadine (Claritin) 10 mg DAILY PO ; Start 10/13/16 at 09:00; Stop 10/13/16 at 09:00; Status DC Montelukast Sodium (Singulair) 10 mg HS PO ; Start 10/13/16 at 21:00; Stop at 21:00; Status DC Nifedipine (Procardia Xl) 60 mg TID PO ; Start 10/13/16 at 09:00; Stop 10/13/16 at 09:00; Status DC Pravastatin Sodium (Pravachol) 40 mg DAILY PO ; Start 10/13/16 at 09:00; Stop 10/13/16 at 09:00; Status DC Sodium Chloride 1,000 ml @ 999 mls/hr BOLUS ONCE IV Last administered on t 05:42; Start 10/13/16 at 04:45; Stop 10/13/16 at 05:45; Status DC Sodium Bicarbonate 150 meq/Dextrose 1,150 ml @ 75 mls/hr [id number] IV ; Start 10/13/16 at 08:00; Stop 10/13/16 at 08:00; Status DC Norepinephrine Bitartrate 250 ml @ As Directed STK-MED ONCE IV ; Start 10/13/16 at 07:25; Stop 10/13/16 at 07:26; Status DC Norepinephrine Bitartrate 250 ml @ 7.5 mls/hr TITRATE PRN IV Blood pressure management; Start 10/13/16 at 07:30; Status UNV Terbutaline Sulfate (Brethine Inj) 1 mg UNSCH PRN SQ For Extravasation; Start 10/13/16 at 07:30; Stop 10/28/16 at 11:24; Status DC Sodium Bicarbonate (Sodium Bicarbonate 8.4% Inj) 200 meq ONCE ONCE IV PUSH Last administered on 10/13/16 07:30; Start 10/13/16 at 07:30; Stop 10/13/16 at 07: 35; Status DC Dextrose (D50w (Vial) Inj) 25 ml UNSCH PRN IV PUSH HYPOGLYCEMIA-SEE COMMENTS; Start 10/13/16 at 07:30 Insulin Human Regular (NovoLIN R SUPPLEMENTAL SCALE) 1 Q6HR SQ Last administered on 11/05/16 00:00; Start 10/13/16 at 12:00 Linezolid 300 ml @ 300 mls/hr Q12H IV ; Start 10/13/16 at 08:00; Stop 10/13/16 at 08:07; Status DC Piperacillin Sod/ Tazobactam Sod 50 ml @ 100 mls/hr Q8H IV Last administered on 10/13/16 09:07; Start 10/13/16 at 09:00; Stop 10/13/16 at 14:13; Status DC Norepinephrine Bitartrate 16 mg/ Dextrose 250 ml @ 1.87 mls/hr TITRATE PRN IV Maintain MAP > 65 mmHg; Start 10/13/16 at 08:00; Stop 10/28/16 at 11:24; Status DC Epinephrine HCl 2 mg/Dextrose 252 ml @ 15.12 mls/ hr TITRATE PRN IV Blood Pressure Management; Start 10/13/16 at 08:15; Stop 10/13/16 at 08:47; Status DC Ketamine HCl (Ketalar Inj) 50 mg STAT ONCE IV PUSH ; Start 10/13/16 at 08:15; Stop 10/13/16 at 08:33; Status DC Midazolam HCl (Versed Inj) 2 mg STAT ONCE IV PUSH ; Start 10/13/16 at 08:15; Stop 10/13/16 at 08:31; Status DC Clindamycin Phosphate 900 mg/ Sodium Chloride 106 ml @ 212 mls/hr Q8H IV Last administered on 10/13/16 09:07; Start 10/13/16 at 09:00; Stop 10/13/16 at 13:55; Status DC Epinephrine HCl 8 mg/Dextrose 250 ml @ 5.62 mls/hr TITRATE PRN IV Blood Pressure Management Last administered on 10/13/16 09:07; Start 10/13/16 at 09:00 ; Stop 10/28/16 at 11:24; Status DC Sodium Bicarbonate (Sodium Bicarbonate 8.4% Inj) 200 meq ONCE ONCE IV PUSH Last administered on 10/13/16 11:43; Start 10/13/16 at 11:30; Stop 10/13/16 at 11: 31; Status DC Etomidate (Amidate Inj) 20 mg ONCE ONCE IV PUSH ; Start 10/13/16 at 13:15; Stop 10/13/16 at 14:37; Status DC Midazolam HCl (Versed Inj) 5 mg ONCE ONCE IV PUSH Last administered on 13:15; Start 10/13/16 at 13:15; Stop 10/13/16 at 14:37; Status DC Rocuronium Mora (Zemuron Inj) 100 mg BOLUS ONCE IV Last administered on 10/13 13:15; Start 10/13/16 at 13:15; Stop 10/13/16 at 14:37; Status DC Midazolam HCl (Versed Inj) 5 mg STK-MED ONCE .ROUTE Last administered on 13:20; Start 10/13/16 at 13:20; Stop 10/13/16 at 13:21; Status DC Micafungin Sodium 150 mg/Sodium Chloride 100 ml @ 100 mls/hr Q24H IV Last administered on 10/16/16 16:12; Start 10/13/16 at 17:00; Stop 10/16/16 at 17:40; Status DC Daptomycin 1000 mg/Sodium Chloride 100 ml @ 200 mls/hr Q48H IV Last administered on 10/27/16 16:58; Start 10/13/16 at 16:00; Stop 10/30/16 at 15:59 ; Status DC Cefepime HCl 1000 mg/Sodium Chloride 100 ml @ 200 mls/hr Q24H IV Last administered on 11/06/16 13:23; Start 10/13/16 at 15:00 Metronidazole 100 ml @ 100 mls/hr Q8H IV Last administered on 10/16/16 15:13; Start 10/13/16 at 16:00; Stop 10/16/16 at 17:40; Status DC Propofol 100 ml @ As Directed STK-MED ONCE .ROUTE ; Start 10/13/16 at 15:31; Stop 10/13/16 at 15:32; Status DC Sodium Chloride 1,000 ml @ 0 mls/hr Q0M PRN OTHER For Prime & Rinse Back Last administered on 10/21/16 10:43; Start 10/13/16 at 15:54 Heparin Sodium (Porcine) (Heparin Inj) 8,000 units UNSCH PRN IVF WITH DIALYSIS ; Start 10/13/16 at 16:00 Sodium Chloride 1,000 ml @ 200 mls/hr Q5H PRN IV WITH DIALYSIS Last administered on 11/03/16 17:23; Start 10/13/16 at 15:54 Sodium Chloride 1,000 ml @ 0 mls/hr Q0M PRN OTHER WITH DIALYSIS; Start 10/13/16 at 15:54 Mannitol (Mannitol Inj) 12.5 gm UNSCH PRN IV WITH DIALYSIS; Start 10/13/16 at 16 :00 Albumin Human (Albumin 25% Inj) 25 gm UNSCH PRN IV WITH DIALYSIS Last administered on 10/14/16 08:19; Start 10/13/16 at 16:00 Sodium Chloride (NS Flush) 5 ml UNSCH PRN IV FLUSH WITH DIALYSIS Last administered on 10/21/16 10:42; Start 10/13/16 at 16:00 Heparin Sodium (Porcine) (Heparin Inj) UNSCH PRN .XX WITH DIALYSIS Last administered on 11/03/16 17:23; Start 10/13/16 at 16:00 Gentamicin Sulfate (Gentamicin (Dialysis) Inj) 20 mg UNSCH PRN IV WITH DIALYSIS Last administered on 11/03/16 17:23; Start 10/13/16 at 16:00 Ondansetron HCl (Zofran Inj) 4 mg UNSCH PRN IV WITH DIALYSIS; Start 10/13/16 at 16:00 Acetaminophen (Tylenol) 650 mg UNSCH PRN PO for headach, pain, temp > 101F Last administered on 10/21/16 20:36; Start 10/13/16 at 16:00 Diphenhydramine HCl (Benadryl) 25 mg UNSCH PRN PO for hives/itching/ anaphylaxis Last administered on 10/28/16 06:35; Start 10/13/16 at 16:00; Stop 11/01/16 at 11:23; Status DC Nitroglycerin (Nitrostat Sl) 0.4 mg UNSCH PRN SL CHEST PAIN; Start 10/13/16 at 16:00 Clonidine (Catapres) 0.1 mg UNSCH PRN PO for BP > 180/100 X 2 readings Last administered on 10/29/16 16:52; Start 10/13/16 at 16:00; Stop 10/29/16 at 20:11 ; Status DC Gelatin (Gelfoam 12 Mm/7 Mm Top) 1 foam UNSCH PRN TOP SEE LABEL COMMENTS Last administered on 10/15/16 10:39; Start 10/13/16 at 16:00 Propofol 100 ml @ As Directed STK-MED ONCE .ROUTE ; Start 10/13/16 at 18:39; Stop 10/13/16 at 18:40; Status DC Propofol 100 ml @ 4.128 mls/ hr TITRATE PRN IV SEDATION Last administered on 13:36; Start 10/13/16 at 19:15; Stop 10/28/16 at 11:24; Status DC Famotidine (Pepcid Liq) 20 mg BID NG Last administered on 10/15/16 09:19; Start 10/14/16 at 21:00; Stop 10/15/16 at 10:04; Status DC Silver Nitrate/ Potassium Nitrate (Silver Nitrate Applicators) 1 appl UNSCH X1 ONCE TOPICAL Last administered on 10/15/16 09:19; Start 10/15/16 at 09:00; Stop 10/15/16 at 09:01; Status DC Famotidine (Pepcid Liq) 10 mg BID NG Last administered on 10/21/16 09:00; Start 10/15/16 at 21:00; Stop 10/21/16 at 20:09; Status DC Diphenhydramine HCl (Benadryl) 25 mg BID PO Last administered on 10/17/16 08:55 ; Start 10/15/16 at 21:00; Stop 10/17/16 at 09:01; Status DC Dexamethasone Sodium Phosphate (Decadron Inj) 4 mg Q6HR IV PUSH Last administered on 10/16/16 17:57; Start 10/16/16 at 10:00; Stop 10/16/16 at 18:01; Status DC Hydralazine HCl (Apresoline Inj) 20 mg Q3H PRN IV PUSH SBP > 170 Last administered on 11/04/16 15:55; Start 10/16/16 at 15:45 Labetalol HCl (Trandate Inj) 20 mg Q3H PRN IV PUSH SBP > 160 Last administered on 11/01/16 12:39; Start 10/16/16 at 15:45 Atropine Sulfate (Atropine Inj) 1 mg STK-MED ONCE IV ; Start 10/13/16 at 05:00; Stop 10/17/16 at 11:07; Status DC Sodium Bicarbonate (Sodium Bicarbonate 8.4% Inj) 50 meq STK-MED ONCE IV ; Start 10/13/16 at 05:00; Stop 10/17/16 at 11:08; Status DC Sodium Chloride 250 ml @ 15 mls/hr ONCE ONCE IV ; Start 10/18/16 at 09:30; Stop 10/19/16 at 02:09; Status DC Epinephrine HCl (EPINEPHrine (1:10,000) INJ) 1 mg STK-MED ONCE .ROUTE ; Start at 14:51; Stop 10/18/16 at 14:52; Status DC Alteplase, Recombinant (Activase Bolus) 9 mg ONCE ONCE IV Last administered on 10/18/16 16:00; Start 10/18/16 at 16:00; Stop 10/18/16 at 16:03; Status DC Alteplase, Recombinant 81 mg/ Syringe / Bag 81 ml @ 81 mls/hr ONCE ONCE IV Last administered on 10/18/16 16:01; Start 10/18/16 at 16:00; Stop 10/18/16 at 16: 59; Status DC Sodium Chloride (NS Inj) 30 ml ONCE ONCE IVF Last administered on 10/18/16 16: 00; Start 10/18/16 at 16:00; Stop 10/18/16 at 16:02; Status DC Miscellaneous Information No Heparin, Warfarin, Aspir... UNSCH PRN XX SEE DOSE INSTRUCTIONS; Start 10/18/16 at 16:00; Stop 10/19/16 at 15:59; Status DC Micafungin Sodium 150 mg/Sodium Chloride 100 ml @ 100 mls/hr Q24H IV Last administered on 10/18/16 18:32; Start 10/18/16 at 18:00; Stop 10/19/16 at 14:43; Status DC Chlorhexidine Gluconate (Peridex 0.12% Liq) 15 ml BID@08,20 MT Last administered on 10/28/16 10:50; Start 10/18/16 at 20:00 Dexamethasone Sodium Phosphate (Decadron Inj) 4 mg STAT ONCE IV PUSH Last administered on 10/19/16 11:50; Start 10/19/16 at 11:15; Stop 10/19/16 at 11:16; Status DC Racepinephrine (Racepinephrine 2.25% Neb) 0.5 ml STK-MED ONCE .ROUTE ; Start 10/19/16 at 13:19; Stop 10/19/16 at 13:20; Status DC Diphenhydramine HCl (Benadryl) 25 mg Q6H PRN PO ITCHING Last administered on 11:57; Start 10/21/16 at 15:30; Stop 10/23/16 at 10:29; Status DC Famotidine (Pepcid) 10 mg BID PO Last administered on 11/07/16 09:25; Start at 21:00 Calamine (Calamine Lotion) 1 applic Q6H PRN TOPICAL irritated skin Last administered on 11/03/16 20:36; Start 10/21/16 at 22:30 Thiamine HCl (Vitamin B1) 100 mg DAILY PO Last administered on 11/07/16 09:24 ; Start 10/23/16 at 09:00 Diphenhydramine HCl (Benadryl) 50 mg Q6H PRN PO ITCHING Last administered on 05:33; Start 10/23/16 at 15:30; Stop 11/01/16 at 11:23; Status DC Senna/Docusate Sodium (Maira-Colace) 2 tab ONCE ONCE PO Last administered on 12:11; Start 10/23/16 at 10:30; Stop 10/23/16 at 11:05; Status DC Magnesium Hydroxide (Milk Of Magnesia Liq) 30 ml ONCE ONCE PO Last administered on 10/23/16 12:11; Start 10/23/16 at 10:30; Stop 10/23/16 at 11:06 ; Status DC Senna/Docusate Sodium (Maira-Colace) 1 tab BID PO Last administered on 09:00; Start 10/23/16 at 21:00 Lactic Acid (Lac-Hydrin 12% Lotion) 1 applic BID TOPICAL Last administered on 21:00; Start 10/23/16 at 21:00 Cholecalciferol (Vitamin D3) 5,000 units DAILY PO Last administered on 09:25; Start 10/24/16 at 09:00 Cholecalciferol (Vitamin D3) 10,000 units ONCE ONCE PO Last administered on 18:06; Start 10/23/16 at 17:45; Stop 10/23/16 at 17:46; Status DC Senna/Docusate Sodium (Maira-Colace) 1 tab BID PO ; Start 10/24/16 at 21:00; Stop 10/24/16 at 21:00; Status DC Fluconazole (Diflucan) 100 mg Q48H PO Last administered on 10/30/16 18:01; Start 10/24/16 at 17:00; Stop 10/30/16 at 18:24; Status DC Hydralazine HCl (Apresoline) 25 mg Q12HR PO Last administered on 10/28/16 10: 48; Start 10/26/16 at 11:30; Stop 10/28/16 at 13:51; Status DC Diphenhydramine HCl (Benadryl 2% Cream) APPLY TO AFFECTED AREA Q4H PRN TOPICAL ITCHING; Start 10/27/16 at 17:30 Nifedipine (Procardia Xl) 30 mg ONCE ONCE PO Last administered on 10/28/16 18 :37; Start 10/28/16 at 14:30; Stop 10/28/16 at 14:31; Status DC Hydralazine HCl (Apresoline) 25 mg Q8H PO Last administered on 10/31/16 08:25 ; Start 10/28/16 at 16:00; Stop 10/31/16 at 10:30; Status DC Multi-Ingredient Ointment (Eucerin Cream) 1 applic Q6H PRN TOPICAL DRY SKIN Last administered on 11/05/16 20:27; Start 10/29/16 at 12:15 Nifedipine (Procardia Xl) 30 mg DAILY PO Last administered on 11/01/16 09:28; Start 10/29/16 at 12:15; Stop 11/01/16 at 12:00; Status DC Clonidine (Catapres) 0.1 mg Q8H PRN PO for BP > 180/100 X 2 readings Last administered on 11/07/16 04:38; Start 10/29/16 at 20:15 Metoprolol Tartrate (Lopressor) 25 mg DAILY PO Last administered on 11/07/16 09:25; Start 10/30/16 at 10:00 Potassium Chloride (KCl) 30 meq ONCE ONCE PO Last administered on 10/30/16 13 :40; Start 10/30/16 at 11:45; Stop 10/30/16 at 11:46; Status DC Potassium Chloride (KCl) 20 meq ONCE ONCE PO Last administered on 10/30/16 18 :01; Start 10/30/16 at 14:30; Stop 10/30/16 at 14:31; Status DC Hydralazine HCl (Apresoline) 50 mg Q8HR PO Last administered on 11/02/16 05:12 ; Start 10/31/16 at 14:00; Stop 11/02/16 at 10:25; Status DC Hydroxyzine HCl (Atarax) 25 mg Q6H PRN PO ITCHING Last administered on 09:24; Start 11/01/16 at 11:30 Loratadine (Claritin) 10 mg DAILY PO Last administered on 11/07/16 09:24; Start 11/01/16 at 11:30 Nifedipine (Procardia Xl) 60 mg DAILY PO Last administered on 11/04/16 09:07; Start 11/02/16 at 09:00; Stop 11/04/16 at 11:40; Status DC Hydralazine HCl (Apresoline) 75 mg Q8HR PO Last administered on 11/03/16 05:30 ; Start 11/02/16 at 14:00; Stop 11/03/16 at 10:51; Status DC Hydralazine HCl (Apresoline) 100 mg Q8HR PO Last administered on 11/07/16 05: 42; Start 11/03/16 at 14:00 Nifedipine (Procardia Xl) 30 mg ONCE ONCE PO Last administered on 11/04/16 12 :04; Start 11/04/16 at 11:45; Stop 11/04/16 at 11:51; Status DC Nifedipine (Procardia Xl) 90 mg DAILY PO Last administered on 11/05/16 10:02; Start 11/05/16 at 09:00; Stop 11/05/16 at 10:46; Status DC Nifedipine (Procardia Xl) 30 mg ONCE ONCE PO Last administered on 11/05/16 18 :41; Start 11/05/16 at 18:00; Stop 11/05/16 at 18:01; Status DC Nifedipine (Procardia Xl) 60 mg Q12HR PO Last administered on 11/07/16 09:25; Start 11/06/16 at 09:00 Potassium Chloride (KCl) 30 meq ONCE ONCE PO Last administered on 11/07/16 09 :55; Start 11/07/16 at 09:30; Stop 11/07/16 at 09:31; Status DC A/P Assessment and Plan A/P Suspected stroke alert with acute change in neurologic status 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 Patient was administered IV thrombolysis following evaluation by neurology Dr. Burton . Subsequently MRI/MRA brain unremarkable. - Urine tox screen came back positive for benzodiazepines placing concern for surreptitious benzodiazepine use as she does not have any benzodiazepine listed on her APR. non-sustained V-tach started on lopressor- echo with EF 60%. continue to monitor. Obesity Hypoventilation Syndrome COPD Sleep Apnea Acute hypoxic and hypercarbic respiratory failure- persistent, no improvement. Pulmonary Edema - intubated and then extubated 10/16. -Emergently intubated on 10/18 for airway protection due to altered mental status. Extubated on 10/19- now stable. Septic Shock- resolved. pseudomonas bacteremia Severe Tricuspid Regurgitation IV antibiotics per ID recommendations; on Cefepime. Acute kidney injury requiring renal replacement therapy hypokalemia - nephrology following - HD on hold for now per nephrology; awaiting renal recovery. -replace potassium cautiously in light of renal insufficiency. -monitor the renal function. -- Strict IOs Chronic anemia- likely secondary to chronic disease LLE osteomyelitis Pseudomonas bacteremia Gram Positive Bacteremia Pseudomonas osteomyelitis Fungal Urinary Tract Infection -Recommend transfusions of PRBCs to keep hemoglobin above 7 g percent. - ID following. - continue antibiotics per ID. Diabetes -Vitamin D deficiency. -- Patient had low vitamin D and was started on cholecalciferol. -- continue accu-check with sliding scale. hypertension-uncontrolled increase Procardia XL to 60 mg po twice daily- continue metoprolol and hydralazine continue to monitor and adjust the regimen as needed. will consider adding clonidine if BP remains elevated. DVT Prophylaxis -- SCDs resume Sub-cutaneous heparin. Discharge Planning when cleared by ID and nephrology. Roseanna Murphy MD Nov 07, 2016 11:56
[2016-11-07] MEDS: CEFEPIME INJ 1,000 MG in SODIUM CHLORIDE 0.9% INJ 100 ML IV SCH (13:53)
[2016-11-07] MEDS: HEPARIN SODIUM - SQ 10,000 UNITS/ML VIAL SQ SCH (21:14)
[2016-11-07] MEDS: EUCERIN CREAM 120 GM JAR TOPICAL PRN (21:40)
[2016-11-08] VITALS: BP 180/98; PULSE 93; RESP 18; TEMP 98.5; O2SAT 96
[2016-11-08 04:00] VITALS: BP 170/84; PULSE 81; RESP 18; TEMP 98.4; O2SAT 97
[2016-11-08] MEDS: INSULIN NovoLIN REGULAR SUPPLEMENTAL SCALE SQ SCH ×4 (05:09→23:43)
[2016-11-08] MEDS: hydrALAZINE HCL 100 MG TAB PO SCH ×3 (05:34→21:43)
[2016-11-08 08:00] VITALS: BP 192/96; PULSE 94; RESP 20; TEMP 98.3; O2SAT 99
[2016-11-08] MEDS: HEPARIN SODIUM - SQ 10,000 UNITS/ML VIAL SQ SCH ×2 (09:14→21:43)
[2016-11-08] MEDS: NIFEdipine 60 MG SUSTAINED RELEASE TAB PO SCH ×2 (09:14→21:43)
[2016-11-08] MEDS: FAMOTIDINE 20 MG TAB PO SCH ×2 (09:14→21:43)
[2016-11-08] MEDS: METOPROLOL TARTRATE 25 MG TAB PO SCH (09:14)
[2016-11-08] MEDS: hydrOXYzine HCL 25 MG TAB PO PRN ×3 (09:14→22:39)
[2016-11-08] MEDS: LACTOBACILLUS ACIDOPHILUS TAB PO SCH ×3 (09:15→16:08)
[2016-11-08] MEDS: DOCUSATE SODIUM 50 MG/SENNA 8.6 MG TAB PO SCH ×2 (09:15→21:00)
[2016-11-08] MEDS: SODIUM CHLORIDE 0.9% FLUSH 10 ML FLUSH IV FLUSH SCH ×2 (09:15→21:43)
[2016-11-08] MEDS: LORATADINE 10 MG TAB PO SCH (09:15)
[2016-11-08] MEDS: CHLORHEXIDINE 0.12% (ORAL KIT) 15 ML CUP MT SCH ×2 (09:15→20:00)
[2016-11-08] MEDS: CHOLECALCIFEROL (VIT D3) 5000 UNIT CAP PO SCH (09:15)
[2016-11-08] MEDS: THIAMINE HCL 100 MG TAB PO SCH (09:15)
[2016-11-08] MEDS: LACTIC ACID (AMMONIUM LACTATE) 12% LOTION 225 GM BTL TOPICAL SCH ×2 (09:16→21:43)
[2016-11-08] MEDS: EUCERIN CREAM 120 GM JAR TOPICAL PRN (09:16)
[2016-11-08] MEDS ORDERED: FLAR0.1S EACH EYE (10:18)
[2016-11-08] MEDS ORDERED: DORZ2SOL EACH EYE (10:18)
[2016-11-08 10:40] LABS: BICARBONATE 26.3 MEQ/L (21.0-32.0); POTASSIUM 3.3 MEQ/L (3.5-5.1)
--- NOTE | 2016-11-08 10:52 | HHI.PR ---
Subjective Remarks in no distress. denies pain. no fever. d/w the RN and no acute issues over night. Objective Vitals Vital Signs Date Time Temp Pulse Resp B/P (MAP) Pulse Ox O2 Delivery O2 Flow Rate FiO2 11/08/16 09:24 Room Air 11/08/16 08:00 98.3 94 20 192/96 (128) 99 11/08/16 04:00 Room Air 11/08/16 04:00 98.4 81 18 170/84 (112) 97 11/08/16 00:00 Room Air 11/08/16 00:00 98.5 93 18 180/98 (125) 96 11/07/16 22:46 94 11/07/16 21:20 Room Air 11/07/16 20:23 97.9 67 18 182/55 (97) 97 11/07/16 16:00 98.3 90 20 182/88 (119) 100 11/07/16 12:00 98.8 82 20 181/88 (119) 100 I/O 11/07/16 11/07/16 11/07/16 11/08/16 11/08/16 11/08/16 07:00 15:00 23:00 07:00 15:00 23:00 Intake Total 720 ml 100 ml 480 ml Output Total 300 ml Balance 720 ml 100 ml 180 ml Intake Oral 720 ml 480 ml IV Total 100 ml Output Urine Total 300 ml # Voids 0 # Bowel Movements 2 Result Diagram: 11/08/16 0747 Imaging Last Impressions Liver Ultrasound 10/23/16 0000 Signed Impressions: Service Date/Time: Sunday, October 23, 2016 09:45 - CONCLUSION: 1. Gallbladder sludge 2. No evidence of biliary duct dilatation 3. Otherwise unremarkable exam. Jaiden Weston MD Head CT 10/19/16 1700 Signed Impressions: Service Date/Time: October 17:01 - CONCLUSION: No acute intracranial findings Ricco Kulkarni MD Head Magnetic Resonance Angiography 10/18/16 0000 Signed Impressions: Service Date/Time: Tuesday, October 18, 2016 16:23 - CONCLUSION: Normal examination. Ricco Kulkarni MD Chest X-Ray 10/18/16 0000 Signed Impressions: Service Date/Time: Tuesday, October 18, 2016 14:59 - CONCLUSION: 1. Mild to moderate pulmonary vascular congestion. 2. Cardiomegaly. 3. Elevation of the right hemidiaphragm. 4. Endotracheal tube in good position 3 cm above the elsie. 5. Left internal jugular VasCath and left subclavian central line are stable in positions. Raymond Smith MD Brain MRI 10/18/16 Signed Impressions: Service Date/Time: Tuesday, October 18, 2016 16:11 - CONCLUSION: Nonspecific white matter signal change in the left frontal region. No evidence of acute stroke. Ricco Kulkarni MD Ankle X-Ray 10/14/16 Signed Impressions: Service Date/Time: Friday, October 14, 2016 17:01 - CONCLUSION: Marked soft tissue swelling with subcutaneous calcifications. Negative for fracture. Roman Montiel MD FACR Upper Extremity Ultrasound 10/13/16 Signed Impressions: Service Date/Time: Thursday, October 13, 2016 09:17 - CONCLUSION: 1. No DVT. 2. Subcutaneous edema observed. Wilner Potter Jr., MD Lower Extremity Ultrasound 10/13/16 Signed Impressions: Service Date/Time: Thursday, October 13, 2016 08:57 - CONCLUSION: 1. Study has some limitations as detailed above. No DVT observed. Wilner Potter Jr., MD Lower Extremity CT 10/13/16 Signed Impressions: Service Date/Time: Thursday, October 13, 2016 21:35 - CONCLUSION: Ulcer at the region of the base of the fifth metatarsal. There appears to be chronic and acute changes in this region. The acute changes are worrisome for osteomyelitis at the base of the fifth metatarsal. Ricco Fuentes MD Chest CT 10/13/16 Signed Impressions: Service Date/Time: Thursday, October 13, 2016 21:27 - CONCLUSION: 1. Patchy areas of consolidation seen bilaterally being worse on the right. These could represent areas of inflammatory/infectious disease. Focal round lesions to suggest septic emboli are not clearly identified. 2. Edema seen at the right superficial chest and abdomen regions. The cause of for this asymmetric edema is not known. 3. Mild ascites. Ricco Fuentes MD Abdomen CT 10/13/16 Signed Impressions: Service Date/Time: Thursday, October 13, 2016 21:27 - CONCLUSION: 1. Mild ascites seen around the liver. 2. Superficial edema seen bilaterally in the subcutaneous tissues. This is asymmetric and being much more prominent on the right. 3. Small area of increased density seen independently in the gallbladder representing either small gallstones or milk of calcium. Ricco Fuentes MD Renal Ultrasound 10/12/16 0000 Signed Impressions: Service Date/Time: September 20:54 - CONCLUSION: Normal appearance of the kidneys. Ricco Fuentes MD Objective Remarks GENERAL: This is a well-nourished, well-developed patient, in no apparent distress. CARDIOVASCULAR: Regular rate and regular rhythm without murmurs, gallops, or rubs. RESPIRATORY: Clear to auscultation. Breath sounds equal bilaterally. No wheezes , rales, or rhonchi. GASTROINTESTINAL: Abdomen soft, non-tender, nondistended. Normal, active bowel sounds MUSCULOSKELETAL: Extremities without clubbing, cyanosis, or edema. NEURO: Alert & Oriented x4 to person, place, time, situation. Moves all ext x4 Medications and IVs Current Medications Sodium Chloride 1,000 ml @ 999 mls/hr BOLUS ONCE IV Last administered on 10/12 18:59; Start 10/12/16 at 18:15; Stop 10/12/16 at 19:15; Status DC Sodium Bicarbonate 150 meq/Sterile Water 1,000 ml @ 100 mls/hr Q10H IV Last administered on 10/12/16 23:39; Start 10/12/16 at 20:15; Stop 10/13/16 at 05:52 ; Status DC Sodium Chloride (NS Flush) 2 ml UNSCH PRN IV FLUSH FLUSH AFTER USING IV ACCESS ; Start 10/12/16 at 20:15 Sodium Chloride (NS Flush) 2 ml BID IV FLUSH Last administered on 11/08/16 09: 15; Start 10/12/16 at 21:00 Heparin Sodium (Porcine) (Heparin Inj) 5,000 units Q8H SQ Last administered on 10/18/16 12:42; Start 10/13/16 at 06:00; Stop 10/18/16 at 15:57; Status DC Naloxone HCl (Narcan Inj) 0.4 mg UNSCH PRN IV SEE LABEL COMMENTS; Start at 20:15 Calcium Gluconate (Calcium Gluconate Inj) 1 gm ONCE ONCE IV PUSH ; Start at 20:15; Stop 10/12/16 at 21:51; Status DC Insulin Human Regular (NovoLIN R INJ) 10 units ONCE ONCE IV PUSH Last administered on 10/12/16 23:54; Start 10/12/16 at 20:15; Stop 10/12/16 at 21:53 ; Status DC Dextrose (D50w (Syr) Inj) 50 ml ONCE ONCE IV PUSH Last administered on 23:53; Start 10/12/16 at 20:15; Stop 10/12/16 at 21:52; Status DC Sodium Polystyrene Sulfonate (Kayexalate Liq) 30 gm ONCE ONCE PO Last administered on 10/12/16 23:40; Start 10/12/16 at 20:15; Stop 10/12/16 at 21:54 ; Status DC Dextrose (D50w (Vial) Inj) 50 ml UNSCH PRN IV HYPOGLYCEMIA-SEE COMMENTS; Start 10/12/16 at 20:15; Stop 10/13/16 at 07:33; Status DC Glucagon (Glucagon Inj) 1 mg UNSCH PRN OTHER HYPOGLYCEMIA-SEE COMMENTS; Start 10/12/16 at 20:15 Insulin Aspart (NovoLOG SUPPLEMENTAL SCALE) 1 ACHS SLIDING SCALE SQ ; Start at 21:00; Stop 10/13/16 at 07:30; Status DC Calcium Gluconate 1 gm/Sodium Chloride 110 ml @ 110 mls/hr ONCE ONCE IV Last administered on 10/12/16 23:54; Start 10/12/16 at 23:00; Stop 10/12/16 at 23:59 ; Status DC Ipratropium Rogers (Atrovent Neb) 0.5 mg Q6HR NEB NEB Last administered on 15:09; Start 10/13/16 at 04:00; Stop 11/06/16 at 09:29; Status DC Ipratropium Rogers (Atrovent Neb) 0.5 mg Q2HR NEB PRN NEB wheezing; Start 10/13 at 00:45 Amitriptyline HCl (Elavil) 50 mg HS PO ; Start 10/13/16 at 21:00; Stop 10/13/16 at 21:00; Status DC Hydralazine HCl (Apresoline) 100 mg TID PO ; Start 10/13/16 at 09:00; Stop at 09:00; Status DC Insulin Detemir (Levemir Inj) 20 units AC BREAKFAST SQ ; Start 10/13/16 at 07:00 ; Stop 10/13/16 at 07:00; Status DC Insulin Detemir (Levemir Inj) 25 units HS SQ ; Start 10/13/16 at 21:00; Stop 10/13 at 21:00; Status DC Labetalol HCl (Trandate) 200 mg TID PO ; Start 10/13/16 at 09:00; Stop 10/13/16 at 09:00; Status DC Lactobacillus Acidophilus (Lactinex) 1 tab TIDAC PO Last administered on 17:08; Start 10/13/16 at 08:00 Loratadine (Claritin) 10 mg DAILY PO ; Start 10/13/16 at 09:00; Stop 10/13/16 at 09:00; Status DC Montelukast Sodium (Singulair) 10 mg HS PO ; Start 10/13/16 at 21:00; Stop at 21:00; Status DC Nifedipine (Procardia Xl) 60 mg TID PO ; Start 10/13/16 at 09:00; Stop 10/13/16 at 09:00; Status DC Pravastatin Sodium (Pravachol) 40 mg DAILY PO ; Start 10/13/16 at 09:00; Stop 10/13/16 at 09:00; Status DC Sodium Chloride 1,000 ml @ 999 mls/hr BOLUS ONCE IV Last administered on t 05:42; Start 10/13/16 at 04:45; Stop 10/13/16 at 05:45; Status DC Sodium Bicarbonate 150 meq/Dextrose 1,150 ml @ 75 mls/hr [id number] IV ; Start 10/13/16 at 08:00; Stop 10/13/16 at 08:00; Status DC Norepinephrine Bitartrate 250 ml @ As Directed STK-MED ONCE IV ; Start 10/13/16 at 07:25; Stop 10/13/16 at 07:26; Status DC Norepinephrine Bitartrate 250 ml @ 7.5 mls/hr TITRATE PRN IV Blood pressure management; Start 10/13/16 at 07:30; Status UNV Terbutaline Sulfate (Brethine Inj) 1 mg UNSCH PRN SQ For Extravasation; Start 10/13/16 at 07:30; Stop 10/28/16 at 11:24; Status DC Sodium Bicarbonate (Sodium Bicarbonate 8.4% Inj) 200 meq ONCE ONCE IV PUSH Last administered on 10/13/16 07:30; Start 10/13/16 at 07:30; Stop 10/13/16 at 07: 35; Status DC Dextrose (D50w (Vial) Inj) 25 ml UNSCH PRN IV PUSH HYPOGLYCEMIA-SEE COMMENTS; Start 10/13/16 at 07:30 Insulin Human Regular (NovoLIN R SUPPLEMENTAL SCALE) 1 Q6HR SQ Last administered on 11/05/16 00:00; Start 10/13/16 at 12:00 Linezolid 300 ml @ 300 mls/hr Q12H IV ; Start 10/13/16 at 08:00; Stop 10/13/16 at 08:07; Status DC Piperacillin Sod/ Tazobactam Sod 50 ml @ 100 mls/hr Q8H IV Last administered on 10/13/16 09:07; Start 10/13/16 at 09:00; Stop 10/13/16 at 14:13; Status DC Norepinephrine Bitartrate 16 mg/ Dextrose 250 ml @ 1.87 mls/hr TITRATE PRN IV Maintain MAP > 65 mmHg; Start 10/13/16 at 08:00; Stop 10/28/16 at 11:24; Status DC Epinephrine HCl 2 mg/Dextrose 252 ml @ 15.12 mls/ hr TITRATE PRN IV Blood Pressure Management; Start 10/13/16 at 08:15; Stop 10/13/16 at 08:47; Status DC Ketamine HCl (Ketalar Inj) 50 mg STAT ONCE IV PUSH ; Start 10/13/16 at 08:15; Stop 10/13/16 at 08:33; Status DC Midazolam HCl (Versed Inj) 2 mg STAT ONCE IV PUSH ; Start 10/13/16 at 08:15; Stop 10/13/16 at 08:31; Status DC Clindamycin Phosphate 900 mg/ Sodium Chloride 106 ml @ 212 mls/hr Q8H IV Last administered on 10/13/16 09:07; Start 10/13/16 at 09:00; Stop 10/13/16 at 13:55; Status DC Epinephrine HCl 8 mg/Dextrose 250 ml @ 5.62 mls/hr TITRATE PRN IV Blood Pressure Management Last administered on 10/13/16 09:07; Start 10/13/16 at 09:00 ; Stop 10/28/16 at 11:24; Status DC Sodium Bicarbonate (Sodium Bicarbonate 8.4% Inj) 200 meq ONCE ONCE IV PUSH Last administered on 10/13/16 11:43; Start 10/13/16 at 11:30; Stop 10/13/16 at 11: 31; Status DC Etomidate (Amidate Inj) 20 mg ONCE ONCE IV PUSH ; Start 10/13/16 at 13:15; Stop 10/13/16 at 14:37; Status DC Midazolam HCl (Versed Inj) 5 mg ONCE ONCE IV PUSH Last administered on 13:15; Start 10/13/16 at 13:15; Stop 10/13/16 at 14:37; Status DC Rocuronium Rogers (Zemuron Inj) 100 mg BOLUS ONCE IV Last administered on 10/13 13:15; Start 10/13/16 at 13:15; Stop 10/13/16 at 14:37; Status DC Midazolam HCl (Versed Inj) 5 mg STK-MED ONCE .ROUTE Last administered on 13:20; Start 10/13/16 at 13:20; Stop 10/13/16 at 13:21; Status DC Micafungin Sodium 150 mg/Sodium Chloride 100 ml @ 100 mls/hr Q24H IV Last administered on 10/16/16 16:12; Start 10/13/16 at 17:00; Stop 10/16/16 at 17:40; Status DC Daptomycin 1000 mg/Sodium Chloride 100 ml @ 200 mls/hr Q48H IV Last administered on 10/27/16 16:58; Start 10/13/16 at 16:00; Stop 10/30/16 at 15:59 ; Status DC Cefepime HCl 1000 mg/Sodium Chloride 100 ml @ 200 mls/hr Q24H IV Last administered on 11/07/16 13:53; Start 10/13/16 at 15:00 Metronidazole 100 ml @ 100 mls/hr Q8H IV Last administered on 9/4/17at 15:13; Start 10/13/16 at 16:00; Stop 10/16/16 at 17:40; Status DC Propofol 100 ml @ As Directed STK-MED ONCE .ROUTE ; Start 10/13/16 at 15:31; Stop 10/13/16 at 15:32; Status DC Sodium Chloride 1,000 ml @ 0 mls/hr Q0M PRN OTHER For Prime & Rinse Back Last administered on 10/21/16 10:43; Start 10/13/16 at 15:54 Heparin Sodium (Porcine) (Heparin Inj) 8,000 units UNSCH PRN IVF WITH DIALYSIS ; Start 10/13/16 at 16:00 Sodium Chloride 1,000 ml @ 200 mls/hr Q5H PRN IV WITH DIALYSIS Last administered on 11/03/16 17:23; Start 10/13/16 at 15:54 Sodium Chloride 1,000 ml @ 0 mls/hr Q0M PRN OTHER WITH DIALYSIS; Start 10/13/16 at 15:54 Mannitol (Mannitol Inj) 12.5 gm UNSCH PRN IV WITH DIALYSIS; Start 10/13/16 at 16 :00 Albumin Human (Albumin 25% Inj) 25 gm UNSCH PRN IV WITH DIALYSIS Last administered on 10/14/16 08:19; Start 10/13/16 at 16:00 Sodium Chloride (NS Flush) 5 ml UNSCH PRN IV FLUSH WITH DIALYSIS Last administered on 10/21/16 10:42; Start 10/13/16 at 16:00 Heparin Sodium (Porcine) (Heparin Inj) UNSCH PRN .XX WITH DIALYSIS Last administered on 11/03/16 17:23; Start 10/13/16 at 16:00 Gentamicin Sulfate (Gentamicin (Dialysis) Inj) 20 mg UNSCH PRN IV WITH DIALYSIS Last administered on 11/03/16 17:23; Start 10/13/16 at 16:00 Ondansetron HCl (Zofran Inj) 4 mg UNSCH PRN IV WITH DIALYSIS; Start 10/13/16 at 16:00 Acetaminophen (Tylenol) 650 mg UNSCH PRN PO for headach, pain, temp > 101F Last administered on 10/21/16 20:36; Start 10/13/16 at 16:00 Diphenhydramine HCl (Benadryl) 25 mg UNSCH PRN PO for hives/itching/ anaphylaxis Last administered on 10/28/16 06:35; Start 10/13/16 at 16:00; Stop 11/01/16 at 11:23; Status DC Nitroglycerin (Nitrostat Sl) 0.4 mg UNSCH PRN SL CHEST PAIN; Start 10/13/16 at 16:00 Clonidine (Catapres) 0.1 mg UNSCH PRN PO for BP > 180/100 X 2 readings Last administered on 10/29/16 16:52; Start 10/13/16 at 16:00; Stop 10/29/16 at 20:11 ; Status DC Gelatin (Gelfoam 12 Mm/7 Mm Top) 1 foam UNSCH PRN TOP SEE LABEL COMMENTS Last administered on 10/15/16 10:39; Start 10/13/16 at 16:00 Propofol 100 ml @ As Directed STK-MED ONCE .ROUTE ; Start 10/13/16 at 18:39; Stop 10/13/16 at 18:40; Status DC Propofol 100 ml @ 4.128 mls/ hr TITRATE PRN IV SEDATION Last administered on 13:36; Start 10/13/16 at 19:15; Stop 10/28/16 at 11:24; Status DC Famotidine (Pepcid Liq) 20 mg BID NG Last administered on 10/15/16 09:19; Start 10/14/16 at 21:00; Stop 10/15/16 at 10:04; Status DC Silver Nitrate/ Potassium Nitrate (Silver Nitrate Applicators) 1 appl UNSCH X1 ONCE TOPICAL Last administered on 10/15/16 09:19; Start 10/15/16 at 09:00; Stop 10/15/16 at 09:01; Status DC Famotidine (Pepcid Liq) 10 mg BID NG Last administered on 10/21/16 09:00; Start 10/15/16 at 21:00; Stop 10/21/16 at 20:09; Status DC Diphenhydramine HCl (Benadryl) 25 mg BID PO Last administered on 10/17/16 08:55 ; Start 10/15/16 at 21:00; Stop 10/17/16 at 09:01; Status DC Dexamethasone Sodium Phosphate (Decadron Inj) 4 mg Q6HR IV PUSH Last administered on 10/16/16 17:57; Start 10/16/16 at 10:00; Stop 10/16/16 at 18:01; Status DC Hydralazine HCl (Apresoline Inj) 20 mg Q3H PRN IV PUSH SBP > 170 Last administered on 11/04/16 15:55; Start 10/16/16 at 15:45 Labetalol HCl (Trandate Inj) 20 mg Q3H PRN IV PUSH SBP > 160 Last administered on 11/01/16 12:39; Start 10/16/16 at 15:45 Atropine Sulfate (Atropine Inj) 1 mg STK-MED ONCE IV ; Start 10/13/16 at 05:00; Stop 10/17/16 at 11:07; Status DC Sodium Bicarbonate (Sodium Bicarbonate 8.4% Inj) 50 meq STK-MED ONCE IV ; Start 10/13/16 at 05:00; Stop 10/17/16 at 11:08; Status DC Sodium Chloride 250 ml @ 15 mls/hr ONCE ONCE IV ; Start 10/18/16 at 09:30; Stop 10/19/16 at 02:09; Status DC Epinephrine HCl (EPINEPHrine (1:10,000) INJ) 1 mg STK-MED ONCE .ROUTE ; Start at 14:51; Stop 10/18/16 at 14:52; Status DC Alteplase, Recombinant (Activase Bolus) 9 mg ONCE ONCE IV Last administered on 10/18/16 16:00; Start 10/18/16 at 16:00; Stop 10/18/16 at 16:03; Status DC Alteplase, Recombinant 81 mg/ Syringe / Bag 81 ml @ 81 mls/hr ONCE ONCE IV Last administered on 10/18/16 16:01; Start 10/18/16 at 16:00; Stop 10/18/16 at 16: 59; Status DC Sodium Chloride (NS Inj) 30 ml ONCE ONCE IVF Last administered on 10/18/16 16: 00; Start 10/18/16 at 16:00; Stop 10/18/16 at 16:02; Status DC Miscellaneous Information No Heparin, Warfarin, Aspir... UNSCH PRN XX SEE DOSE INSTRUCTIONS; Start 10/18/16 at 16:00; Stop 10/19/16 at 15:59; Status DC Micafungin Sodium 150 mg/Sodium Chloride 100 ml @ 100 mls/hr Q24H IV Last administered on 10/18/16 18:32; Start 10/18/16 at 18:00; Stop 10/19/16 at 14:43; Status DC Chlorhexidine Gluconate (Peridex 0.12% Liq) 15 ml BID@08,20 MT Last administered on 10/28/16 10:50; Start 10/18/16 at 20:00 Dexamethasone Sodium Phosphate (Decadron Inj) 4 mg STAT ONCE IV PUSH Last administered on 10/19/16 11:50; Start 10/19/16 at 11:15; Stop 10/19/16 at 11:16; Status DC Racepinephrine (Racepinephrine 2.25% Neb) 0.5 ml STK-MED ONCE .ROUTE ; Start 10/19/16 at 13:19; Stop 10/19/16 at 13:20; Status DC Diphenhydramine HCl (Benadryl) 25 mg Q6H PRN PO ITCHING Last administered on 11:57; Start 10/21/16 at 15:30; Stop 10/23/16 at 10:29; Status DC Famotidine (Pepcid) 10 mg BID PO Last administered on 11/08/16 09:14; Start at 21:00 Calamine (Calamine Lotion) 1 applic Q6H PRN TOPICAL irritated skin Last administered on 11/03/16 20:36; Start 10/21/16 at 22:30 Thiamine HCl (Vitamin B1) 100 mg DAILY PO Last administered on 11/08/16 09:15 ; Start 10/23/16 at 09:00 Diphenhydramine HCl (Benadryl) 50 mg Q6H PRN PO ITCHING Last administered on 05:33; Start 10/23/16 at 15:30; Stop 11/01/16 at 11:23; Status DC Senna/Docusate Sodium (Maira-Colace) 2 tab ONCE ONCE PO Last administered on 12:11; Start 10/23/16 at 10:30; Stop 10/23/16 at 11:05; Status DC Magnesium Hydroxide (Milk Of Magnesia Liq) 30 ml ONCE ONCE PO Last administered on 10/23/16 12:11; Start 10/23/16 at 10:30; Stop 10/23/16 at 11:06 ; Status DC Senna/Docusate Sodium (Maira-Colace) 1 tab BID PO Last administered on 09:00; Start 10/23/16 at 21:00 Lactic Acid (Lac-Hydrin 12% Lotion) 1 applic BID TOPICAL Last administered on 09:16; Start 10/23/16 at 21:00 Cholecalciferol (Vitamin D3) 5,000 units DAILY PO Last administered on 09:15; Start 10/24/16 at 09:00 Cholecalciferol (Vitamin D3) 10,000 units ONCE ONCE PO Last administered on 18:06; Start 10/23/16 at 17:45; Stop 10/23/16 at 17:46; Status DC Senna/Docusate Sodium (Maira-Colace) 1 tab BID PO ; Start 10/24/16 at 21:00; Stop 10/24/16 at 21:00; Status DC Fluconazole (Diflucan) 100 mg Q48H PO Last administered on 10/30/16 18:01; Start 10/24/16 at 17:00; Stop 10/30/16 at 18:24; Status DC Hydralazine HCl (Apresoline) 25 mg Q12HR PO Last administered on 10/28/16 10: 48; Start 10/26/16 at 11:30; Stop 10/28/16 at 13:51; Status DC Diphenhydramine HCl (Benadryl 2% Cream) APPLY TO AFFECTED AREA Q4H PRN TOPICAL ITCHING; Start 10/27/16 at 17:30 Nifedipine (Procardia Xl) 30 mg ONCE ONCE PO Last administered on 10/28/16 18 :37; Start 10/28/16 at 14:30; Stop 10/28/16 at 14:31; Status DC Hydralazine HCl (Apresoline) 25 mg Q8H PO Last administered on 10/31/16 08:25 ; Start 10/28/16 at 16:00; Stop 10/31/16 at 10:30; Status DC Multi-Ingredient Ointment (Eucerin Cream) 1 applic Q6H PRN TOPICAL DRY SKIN Last administered on 11/08/16 09:16; Start 10/29/16 at 12:15 Nifedipine (Procardia Xl) 30 mg DAILY PO Last administered on 11/01/16 09:28; Start 10/29/16 at 12:15; Stop 11/01/16 at 12:00; Status DC Clonidine (Catapres) 0.1 mg Q8H PRN PO for BP > 180/100 X 2 readings Last administered on 11/07/16 23:56; Start 10/29/16 at 20:15 Metoprolol Tartrate (Lopressor) 25 mg DAILY PO Last administered on 11/08/16 09:14; Start 10/30/16 at 10:00 Potassium Chloride (KCl) 30 meq ONCE ONCE PO Last administered on 10/30/16 13 :40; Start 10/30/16 at 11:45; Stop 10/30/16 at 11:46; Status DC Potassium Chloride (KCl) 20 meq ONCE ONCE PO Last administered on 10/30/16 18 :01; Start 10/30/16 at 14:30; Stop 10/30/16 at 14:31; Status DC Hydralazine HCl (Apresoline) 50 mg Q8HR PO Last administered on 11/02/16 05:12 ; Start 10/31/16 at 14:00; Stop 11/02/16 at 10:25; Status DC Hydroxyzine HCl (Atarax) 25 mg Q6H PRN PO ITCHING Last administered on 09:14; Start 11/01/16 at 11:30 Loratadine (Claritin) 10 mg DAILY PO Last administered on 11/08/16 09:15; Start 11/01/16 at 11:30 Nifedipine (Procardia Xl) 60 mg DAILY PO Last administered on 11/04/16 09:07; Start 11/02/16 at 09:00; Stop 11/04/16 at 11:40; Status DC Hydralazine HCl (Apresoline) 75 mg Q8HR PO Last administered on 11/03/16 05:30 ; Start 11/02/16 at 14:00; Stop 11/03/16 at 10:51; Status DC Hydralazine HCl (Apresoline) 100 mg Q8HR PO Last administered on 11/08/16 05: 34; Start 11/03/16 at 14:00 Nifedipine (Procardia Xl) 30 mg ONCE ONCE PO Last administered on 11/04/16 12 :04; Start 11/04/16 at 11:45; Stop 11/04/16 at 11:51; Status DC Nifedipine (Procardia Xl) 90 mg DAILY PO Last administered on 11/05/16 10:02; Start 11/05/16 at 09:00; Stop 11/05/16 at 10:46; Status DC Nifedipine (Procardia Xl) 30 mg ONCE ONCE PO Last administered on 11/05/16 18 :41; Start 11/05/16 at 18:00; Stop 11/05/16 at 18:01; Status DC Nifedipine (Procardia Xl) 60 mg Q12HR PO Last administered on 11/08/16 09:14; Start 11/06/16 at 09:00 Potassium Chloride (KCl) 30 meq ONCE ONCE PO Last administered on 11/07/16 09 :55; Start 11/07/16 at 09:30; Stop 11/07/16 at 09:31; Status DC Heparin Sodium (Porcine) (Heparin Inj) 5,000 units Q12HR SQ Last administered on 11/08/16 09:14; Start 11/07/16 at 21:00 A/P Assessment and Plan A/P Suspected stroke alert with acute change in neurologic status 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 Patient was administered IV thrombolysis following evaluation by neurology Dr. Burton . Subsequently MRI/MRA brain unremarkable. - Urine tox screen came back positive for benzodiazepines placing concern for surreptitious benzodiazepine use as she does not have any benzodiazepine listed on her APR. non-sustained V-tach started on lopressor- echo with EF 60%. continue to monitor. Obesity Hypoventilation Syndrome COPD Sleep Apnea Acute hypoxic and hypercarbic respiratory failure- resolved. Pulmonary Edema - intubated and then extubated 10/16. -Emergently intubated on 10/18 for airway protection due to altered mental status. Extubated on 10/19- now stable. Septic Shock- resolved. pseudomonas bacteremia Severe Tricuspid Regurgitation IV antibiotics per ID recommendations; on Cefepime. Acute kidney injury requiring renal replacement therapy hypokalemia - nephrology following - HD on hold for now per nephrology; awaiting renal recovery. -replace potassium cautiously in light of renal insufficiency. -monitor the renal function. -- Strict IOs Chronic anemia- likely secondary to chronic disease monitor H/H and transfuse to keep Hb > 7- as needed. LLE osteomyelitis Pseudomonas bacteremia Gram Positive Bacteremia Pseudomonas osteomyelitis Fungal Urinary Tract Infection - ID following. - continue antibiotics per ID. Diabetes -Vitamin D deficiency. -- started on cholecalciferol. -- continue accu-check with sliding scale. hypertension-uncontrolled continue Procardia XL , metoprolol and hydralazine. will add clonidine. continue to monitor and adjust the regimen as needed. DVT Prophylaxis -- subq Heparin Discharge Planning when cleared by ID and nephrology. Roseanna Murphy MD Nov 08, 2016 10:52
[2016-11-08] MEDS ORDERED: POTASSIUM CHLORIDE 20 MEQ CONTROLLED RELEASE TAB PO ONE (11:00)
--- NOTE | 2016-11-08 11:23 | HHI.NPPN ---
Subjective General Problems: Anemia Renal Failure: Acute Interval History She looks better today. Creatinine is stable. Edema has improved and she is making more urine. (Lizy Pineda) Review of Systems General Constitutional: Fatigue (Lizy Pineda) Eyes Eyes: Itching (Lizy Pineda) Ears, Nose, & Throat ENT Remarks loss of appetite (Lizy Pineda) Cardiovascular Cardiac: Edema (Lizy Pineda) Endocrine Endocrine: Thirst (Lizy Pineda) Skin Skin: Skin Rash, Ulcers Skin Remarks generalized rash with peeling skin; ulcer planter surface left foot (Lizy Pineda) Objective Data Data Vital Signs Date Time Temp Pulse Resp B/P (MAP) Pulse Ox O2 Delivery O2 Flow Rate FiO2 11/08/16 09:24 Room Air 11/08/16 08:00 98.3 94 20 192/96 (128) 99 11/08/16 04:00 Room Air 11/08/16 04:00 98.4 81 18 170/84 (112) 97 11/08/16 00:00 Room Air 11/08/16 00:00 98.5 93 18 180/98 (125) 96 11/07/16 22:46 94 11/07/16 21:20 Room Air 11/07/16 20:23 97.9 67 18 182/55 (97) 97 11/07/16 16:00 98.3 90 20 182/88 (119) 100 11/07/16 12:00 98.8 82 20 181/88 (119) 100 (Lizy Pineda) -: 11/08/16 0747 Physical Exam General Appearance: No Acute Distress, Comfortable, Obese (Lizy Pineda) Eyes Eye Exam: Pupils Equal, Pupils Reactive (Lizy Pineda) Throat Throat Exam: Oral Mucosa [place] & Moist (Lizy Pineda) Neck Neck Exam: Neck Supple (Lizy Pineda) Pulmonary Resp Exam: Clear Bilaterally, Breath Sounds Equal, No Distress, Decreased Bases (Lizy Pineda) Cardiology CV Exam: Regular, Normal Sinus Rhythm, Good Perfusion (Lizy Pineda) Gastrointestinal/Abdomen GI Exam: Soft, Non-Tender, Bowel Sounds Present (Lizy Pineda) Musculoskeletal MS Exam: Joints Intact, Normal Tone, Unable to Ambulate (Lizy Pineda) Integumentary Skin Exam: Warm, Dry, Intact Skin Remarks left foot ulcer skin is scaly (Lizy Pineda) Extremeties Extremities Exam: Pedal Pulses Palpable, Moderate Edema, Pitting Edema (Lizy Pineda) Neurologic Neuro Exam: Alert, Awake, Oriented, Speech Clear, Moving All Extremities (Lizy Pineda) Psychiatric Psych Exam: Appropriate Responses (Lizy Pineda) Assessment/Plan Discussed Condition With: Patient Assessment Summary: FREDI/Acute Renal Failure Problem List: (1) Acute renal failure ICD Codes: N17.9 - Acute kidney failure, unspecified Status: Acute Plan: She apparently has a baseline creatinine of 1mg/dL FREDI 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 HD initiated on 10/13/16, last HD 11/03. she is making more urine, may be in recovery phase. Potassium replacement ordered PO today as well Repeat labs in AM Avoid nephrotoxic agents. Avoid IVF. (2) Sepsis ICD Codes: A41.9 - Sepsis, unspecified organism Plan: + Pseudomonas in the blood, and gram stain of the wound. Currently on Cefepime (x 6 weeks) D/W ID, Midline placement okay (3) Metabolic acidosis ICD Codes: E87.2 - Acidosis Status: Acute Plan: Corrected, monitor (4) Anemia ICD Codes: D64.9 - Anemia Status: Acute Plan: Hb improved, monitor (5) Vitamin D deficiency ICD Codes: E55.9 - Vitamin D deficiency, unspecified Plan: replacement ordered (6) Itching ICD Codes: L29.9 - Pruritus, unspecified Plan: on Benadryl cream also Vistaril PRN with daily Claritin (Lizy Pineda [employer]) Plan patient was seen and examined. We are holding dialysis. Agree with above assessment and plan. Monitor renal function. (Francisco Javier Quiros MD) Problem Qualifiers (1) Acute renal failure: Qualified Codes: N17.9 - Acute kidney failure, unspecified (2) Anemia: Qualified Codes: D64.9 - Anemia, unspecified Lizy Pineda Nov 08, 2016 11:23 Francisco Javier Quiros MD Nov 09, 2016 17:34
[2016-11-08 12:00] VITALS: BP 196/97; PULSE 84; RESP 20; TEMP 98.2; O2SAT 97
[2016-11-08 16:00] VITALS: BP 166/77; PULSE 89; RESP 18; TEMP 97.5; O2SAT 96
[2016-11-08] MEDS: CEFEPIME INJ 1,000 MG in SODIUM CHLORIDE 0.9% INJ 100 ML IV SCH (16:09)
[2016-11-08 20:00] VITALS: BP 179/89; PULSE 82; PULSE 95; RESP 20; TEMP 98; O2SAT 98
[2016-11-08] MEDS: cloNIDine HCL 0.1 MG TAB PO SCH (21:43)
[2016-11-08] MEDS: FLUOROMETHOLONE 0.1% OPHT SUSP 5 ML BTL EACH EYE SCH (21:44)
[2016-11-08] MEDS: DORZOLAMIDE 2% OPTH SOLN 200 DROP/10 ML BTLO EACH EYE SCH (21:44)
[2016-11-09] VITALS (8 sets, daily range): BP systolic 163–186; BP diastolic 77–94; PULSE 80–96; RESP 16–20; TEMP 97.5–98.7; O2SAT 96–99
[2016-11-09] MEDS: hydrALAZINE HCL 100 MG TAB PO SCH ×3 (05:34→21:36)
[2016-11-09] MEDS: cloNIDine HCL 0.1 MG TAB PO PRN (05:34)
[2016-11-09] MEDS: INSULIN NovoLIN REGULAR SUPPLEMENTAL SCALE SQ SCH ×3 (05:34→18:15)
[2016-11-09] MEDS: hydrOXYzine HCL 25 MG TAB PO PRN ×3 (05:34→21:36)
[2016-11-09] MEDS: EUCERIN CREAM 120 GM JAR TOPICAL PRN (08:32)
[2016-11-09] MEDS: CHOLECALCIFEROL (VIT D3) 5000 UNIT CAP PO SCH (08:33)
[2016-11-09] MEDS: LACTOBACILLUS ACIDOPHILUS TAB PO SCH ×3 (08:34→18:13)
[2016-11-09] MEDS: HEPARIN SODIUM - SQ 10,000 UNITS/ML VIAL SQ SCH ×2 (08:34→21:36)
[2016-11-09] MEDS: FAMOTIDINE 20 MG TAB PO SCH ×2 (08:34→21:36)
[2016-11-09] MEDS: LORATADINE 10 MG TAB PO SCH (08:34)
[2016-11-09] MEDS: NIFEdipine 60 MG SUSTAINED RELEASE TAB PO SCH ×2 (08:34→21:36)
[2016-11-09] MEDS: THIAMINE HCL 100 MG TAB PO SCH (08:35)
[2016-11-09] MEDS: cloNIDine HCL 0.1 MG TAB PO SCH ×3 (08:35→21:36)
[2016-11-09] MEDS: SODIUM CHLORIDE 0.9% FLUSH 10 ML FLUSH IV FLUSH SCH ×2 (08:35→21:37)
[2016-11-09] MEDS: METOPROLOL TARTRATE 25 MG TAB PO SCH (08:35)
[2016-11-09] MEDS: DORZOLAMIDE 2% OPTH SOLN 200 DROP/10 ML BTLO EACH EYE SCH ×2 (08:36→21:37)
[2016-11-09] MEDS: CHLORHEXIDINE 0.12% (ORAL KIT) 15 ML CUP MT SCH ×2 (08:36→20:00)
[2016-11-09] MEDS: FLUOROMETHOLONE 0.1% OPHT SUSP 5 ML BTL EACH EYE SCH ×2 (08:36→21:37)
[2016-11-09] MEDS: LACTIC ACID (AMMONIUM LACTATE) 12% LOTION 225 GM BTL TOPICAL SCH ×2 (08:37→21:38)
[2016-11-09] MEDS: DOCUSATE SODIUM 50 MG/SENNA 8.6 MG TAB PO SCH ×2 (08:37→21:36)
--- NOTE | 2016-11-09 10:33 | HHI.PR ---
Subjective Remarks in no acute distress. no fever. denies pain. Objective Vitals Vital Signs Date Time Temp Pulse Resp B/P (MAP) Pulse Ox O2 Delivery O2 Flow Rate FiO2 11/09/16 08:00 98.7 94 20 184/87 (119) 96 11/09/16 04:00 98.4 96 18 184/84 (117) 98 11/09/16 04:00 Room Air 11/09/16 00:00 97.9 92 20 175/89 (117) 99 11/09/16 00:00 Room Air 11/08/16 20:00 98.0 82 20 179/89 (119) 98 11/08/16 20:00 Room Air 11/08/16 20:00 95 11/08/16 16:00 97.5 89 18 166/77 (106) 96 11/08/16 12:00 98.2 84 20 196/97 (130) 97 I/O 11/08/16 11/08/16 11/08/16 11/09/16 11/09/16 11/09/16 07:00 15:00 23:00 07:00 15:00 23:00 Intake Total 240 ml 240 ml Output Total 400 ml 600 ml Balance -160 ml -360 ml Intake Oral 240 ml 240 ml Output Urine Total 400 ml 600 ml # Voids 0 # Bowel Movements 1 0 Result Diagram: 11/08/16 0747 Imaging Last Impressions Liver Ultrasound 10/23/16 0000 Signed Impressions: Service Date/Time: Sunday, October 23, 2016 09:45 - CONCLUSION: 1. Gallbladder sludge 2. No evidence of biliary duct dilatation 3. Otherwise unremarkable exam. Jaiden Weston MD Head CT 10/19/16 1700 Signed Impressions: Service Date/Time: October 17:01 - CONCLUSION: No acute intracranial findings Ricco Kulkarni MD Head Magnetic Resonance Angiography 10/18/16 0000 Signed Impressions: Service Date/Time: Tuesday, October 18, 2016 16:23 - CONCLUSION: Normal examination. Ricco Kulkarni MD Chest X-Ray 10/18/16 0000 Signed Impressions: Service Date/Time: Tuesday, October 18, 2016 14:59 - CONCLUSION: 1. Mild to moderate pulmonary vascular congestion. 2. Cardiomegaly. 3. Elevation of the right hemidiaphragm. 4. Endotracheal tube in good position 3 cm above the elsie. 5. Left internal jugular VasCath and left subclavian central line are stable in positions. Raymond Smith MD Brain MRI 10/18/16 Signed Impressions: Service Date/Time: Tuesday, October 18, 2016 16:11 - CONCLUSION: Nonspecific white matter signal change in the left frontal region. No evidence of acute stroke. Ricco Kulkarni MD Ankle X-Ray 10/14/16 Signed Impressions: Service Date/Time: Friday, October 14, 2016 17:01 - CONCLUSION: Marked soft tissue swelling with subcutaneous calcifications. Negative for fracture. Roman Montiel MD FACR Upper Extremity Ultrasound 10/13/16 Signed Impressions: Service Date/Time: Thursday, October 13, 2016 09:17 - CONCLUSION: 1. No DVT. 2. Subcutaneous edema observed. Wilner Potter Jr., MD Lower Extremity Ultrasound 10/13/16 Signed Impressions: Service Date/Time: Thursday, October 13, 2016 08:57 - CONCLUSION: 1. Study has some limitations as detailed above. No DVT observed. Wilner Potter Jr., MD Lower Extremity CT 10/13/16 Signed Impressions: Service Date/Time: Thursday, October 13, 2016 21:35 - CONCLUSION: Ulcer at the region of the base of the fifth metatarsal. There appears to be chronic and acute changes in this region. The acute changes are worrisome for osteomyelitis at the base of the fifth metatarsal. Ricco Fuentes MD Chest CT 10/13/16 Signed Impressions: Service Date/Time: Thursday, October 13, 2016 21:27 - CONCLUSION: 1. Patchy areas of consolidation seen bilaterally being worse on the right. These could represent areas of inflammatory/infectious disease. Focal round lesions to suggest septic emboli are not clearly identified. 2. Edema seen at the right superficial chest and abdomen regions. The cause of for this asymmetric edema is not known. 3. Mild ascites. Ricco Fuentes MD Abdomen CT 10/13/16 Signed Impressions: Service Date/Time: Thursday, October 13, 2016 21:27 - CONCLUSION: 1. Mild ascites seen around the liver. 2. Superficial edema seen bilaterally in the subcutaneous tissues. This is asymmetric and being much more prominent on the right. 3. Small area of increased density seen independently in the gallbladder representing either small gallstones or milk of calcium. Ricco Fuentes MD Renal Ultrasound 10/12/16 0000 Signed Impressions: Service Date/Time: September 20:54 - CONCLUSION: Normal appearance of the kidneys. Ricco Fuentes MD Objective Remarks GENERAL: This is a well-nourished, well-developed patient, in no apparent distress. CARDIOVASCULAR: Regular rate and regular rhythm without murmurs, gallops, or rubs. RESPIRATORY: Clear to auscultation. Breath sounds equal bilaterally. No wheezes , rales, or rhonchi. GASTROINTESTINAL: Abdomen soft, non-tender, nondistended. Normal, active bowel sounds MUSCULOSKELETAL: Extremities without clubbing, cyanosis, or edema. NEURO: Alert & Oriented x4 to person, place, time, situation. Moves all ext x4 Medications and IVs Current Medications Sodium Chloride 1,000 ml @ 999 mls/hr BOLUS ONCE IV Last administered on 10/12 18:59; Start 10/12/16 at 18:15; Stop 10/12/16 at 19:15; Status DC Sodium Bicarbonate 150 meq/Sterile Water 1,000 ml @ 100 mls/hr Q10H IV Last administered on 10/12/16 23:39; Start 10/12/16 at 20:15; Stop 10/13/16 at 05:52 ; Status DC Sodium Chloride (NS Flush) 2 ml UNSCH PRN IV FLUSH FLUSH AFTER USING IV ACCESS ; Start 10/12/16 at 20:15 Sodium Chloride (NS Flush) 2 ml BID IV FLUSH Last administered on 11/09/16 08: 35; Start 10/12/16 at 21:00 Heparin Sodium (Porcine) (Heparin Inj) 5,000 units Q8H SQ Last administered on 10/18/16 12:42; Start 10/13/16 at 06:00; Stop 10/18/16 at 15:57; Status DC Naloxone HCl (Narcan Inj) 0.4 mg UNSCH PRN IV SEE LABEL COMMENTS; Start at 20:15 Calcium Gluconate (Calcium Gluconate Inj) 1 gm ONCE ONCE IV PUSH ; Start at 20:15; Stop 10/12/16 at 21:51; Status DC Insulin Human Regular (NovoLIN R INJ) 10 units ONCE ONCE IV PUSH Last administered on 10/12/16 23:54; Start 10/12/16 at 20:15; Stop 10/12/16 at 21:53 ; Status DC Dextrose (D50w (Syr) Inj) 50 ml ONCE ONCE IV PUSH Last administered on 23:53; Start 10/12/16 at 20:15; Stop 10/12/16 at 21:52; Status DC Sodium Polystyrene Sulfonate (Kayexalate Liq) 30 gm ONCE ONCE PO Last administered on 10/12/16 23:40; Start 10/12/16 at 20:15; Stop 10/12/16 at 21:54 ; Status DC Dextrose (D50w (Vial) Inj) 50 ml UNSCH PRN IV HYPOGLYCEMIA-SEE COMMENTS; Start 10/12/16 at 20:15; Stop 10/13/16 at 07:33; Status DC Glucagon (Glucagon Inj) 1 mg UNSCH PRN OTHER HYPOGLYCEMIA-SEE COMMENTS; Start 10/12/16 at 20:15 Insulin Aspart (NovoLOG SUPPLEMENTAL SCALE) 1 ACHS SLIDING SCALE SQ ; Start at 21:00; Stop 10/13/16 at 07:30; Status DC Calcium Gluconate 1 gm/Sodium Chloride 110 ml @ 110 mls/hr ONCE ONCE IV Last administered on 10/12/16 23:54; Start 10/12/16 at 23:00; Stop 10/12/16 at 23:59 ; Status DC Ipratropium [place] (Atrovent Neb) 0.5 mg Q6HR NEB NEB Last administered on 15:09; Start 10/13/16 at 04:00; Stop 11/06/16 at 09:29; Status DC Ipratropium [place] (Atrovent Neb) 0.5 mg Q2HR NEB PRN NEB wheezing; Start 10/13 at 00:45 Amitriptyline HCl (Elavil) 50 mg HS PO ; Start 10/13/16 at 21:00; Stop 10/13/16 at 21:00; Status DC Hydralazine HCl (Apresoline) 100 mg TID PO ; Start 10/13/16 at 09:00; Stop at 09:00; Status DC Insulin Detemir (Levemir Inj) 20 units AC BREAKFAST SQ ; Start 10/13/16 at 07:00 ; Stop 10/13/16 at 07:00; Status DC Insulin Detemir (Levemir Inj) 25 units HS SQ ; Start 10/13/16 at 21:00; Stop 10/13 at 21:00; Status DC Labetalol HCl (Trandate) 200 mg TID PO ; Start 10/13/16 at 09:00; Stop 10/13/16 at 09:00; Status DC Lactobacillus Acidophilus (Lactinex) 1 tab TIDAC PO Last administered on t 08:34; Start 10/13/16 at 08:00 Loratadine (Claritin) 10 mg DAILY PO ; Start 10/13/16 at 09:00; Stop 10/13/16 at 09:00; Status DC Montelukast Sodium (Singulair) 10 mg HS PO ; Start 10/13/16 at 21:00; Stop at 21:00; Status DC Nifedipine (Procardia Xl) 60 mg TID PO ; Start 10/13/16 at 09:00; Stop 10/13/16 at 09:00; Status DC Pravastatin Sodium (Pravachol) 40 mg DAILY PO ; Start 10/13/16 at 09:00; Stop 10/13/16 at 09:00; Status DC Sodium Chloride 1,000 ml @ 999 mls/hr BOLUS ONCE IV Last administered on t 05:42; Start 10/13/16 at 04:45; Stop 10/13/16 at 05:45; Status DC Sodium Bicarbonate 150 meq/Dextrose 1,150 ml @ 75 mls/hr [id number] IV ; Start 10/13/16 at 08:00; Stop 10/13/16 at 08:00; Status DC Norepinephrine Bitartrate 250 ml @ As Directed STK-MED ONCE IV ; Start 10/13/16 at 07:25; Stop 10/13/16 at 07:26; Status DC Norepinephrine Bitartrate 250 ml @ 7.5 mls/hr TITRATE PRN IV Blood pressure management; Start 10/13/16 at 07:30; Status UNV Terbutaline Sulfate (Brethine Inj) 1 mg UNSCH PRN SQ For Extravasation; Start 10/13/16 at 07:30; Stop 10/28/16 at 11:24; Status DC Sodium Bicarbonate (Sodium Bicarbonate 8.4% Inj) 200 meq ONCE ONCE IV PUSH Last administered on 10/13/16 07:30; Start 10/13/16 at 07:30; Stop 10/13/16 at 07: 35; Status DC Dextrose (D50w (Vial) Inj) 25 ml UNSCH PRN IV PUSH HYPOGLYCEMIA-SEE COMMENTS; Start 10/13/16 at 07:30 Insulin Human Regular (NovoLIN R SUPPLEMENTAL SCALE) 1 Q6HR SQ Last administered on 11/05/16 00:00; Start 10/13/16 at 12:00 Linezolid 300 ml @ 300 mls/hr Q12H IV ; Start 10/13/16 at 08:00; Stop 10/13/16 at 08:07; Status DC Piperacillin Sod/ Tazobactam Sod 50 ml @ 100 mls/hr Q8H IV Last administered on 10/13/16 09:07; Start 10/13/16 at 09:00; Stop 10/13/16 at 14:13; Status DC Norepinephrine Bitartrate 16 mg/ Dextrose 250 ml @ 1.87 mls/hr TITRATE PRN IV Maintain MAP > 65 mmHg; Start 10/13/16 at 08:00; Stop 10/28/16 at 11:24; Status DC Epinephrine HCl 2 mg/Dextrose 252 ml @ 15.12 mls/ hr TITRATE PRN IV Blood Pressure Management; Start 10/13/16 at 08:15; Stop 10/13/16 at 08:47; Status DC Ketamine HCl (Ketalar Inj) 50 mg STAT ONCE IV PUSH ; Start 10/13/16 at 08:15; Stop 10/13/16 at 08:33; Status DC Midazolam HCl (Versed Inj) 2 mg STAT ONCE IV PUSH ; Start 10/13/16 at 08:15; Stop 10/13/16 at 08:31; Status DC Clindamycin Phosphate 900 mg/ Sodium Chloride 106 ml @ 212 mls/hr Q8H IV Last administered on 10/13/16 09:07; Start 10/13/16 at 09:00; Stop 10/13/16 at 13:55; Status DC Epinephrine HCl 8 mg/Dextrose 250 ml @ 5.62 mls/hr TITRATE PRN IV Blood Pressure Management Last administered on 10/13/16 09:07; Start 10/13/16 at 09:00 ; Stop 10/28/16 at 11:24; Status DC Sodium Bicarbonate (Sodium Bicarbonate 8.4% Inj) 200 meq ONCE ONCE IV PUSH Last administered on 10/13/16 11:43; Start 10/13/16 at 11:30; Stop 10/13/16 at 11: 31; Status DC Etomidate (Amidate Inj) 20 mg ONCE ONCE IV PUSH ; Start 10/13/16 at 13:15; Stop 10/13/16 at 14:37; Status DC Midazolam HCl (Versed Inj) 5 mg ONCE ONCE IV PUSH Last administered on 13:15; Start 10/13/16 at 13:15; Stop 10/13/16 at 14:37; Status DC Rocuronium [place] (Zemuron Inj) 100 mg BOLUS ONCE IV Last administered on 10/13 13:15; Start 10/13/16 at 13:15; Stop 10/13/16 at 14:37; Status DC Midazolam HCl (Versed Inj) 5 mg STK-MED ONCE .ROUTE Last administered on 13:20; Start 10/13/16 at 13:20; Stop 10/13/16 at 13:21; Status DC Micafungin Sodium 150 mg/Sodium Chloride 100 ml @ 100 mls/hr Q24H IV Last administered on 10/16/16 16:12; Start 10/13/16 at 17:00; Stop 10/16/16 at 17:40; Status DC Daptomycin 1000 mg/Sodium Chloride 100 ml @ 200 mls/hr Q48H IV Last administered on 10/27/16 16:58; Start 10/13/16 at 16:00; Stop 10/30/16 at 15:59 ; Status DC Cefepime HCl 1000 mg/Sodium Chloride 100 ml @ 200 mls/hr Q24H IV Last administered on 11/08/16 16:09; Start 10/13/16 at 15:00 Metronidazole 100 ml @ 100 mls/hr Q8H IV Last administered on 10/16/16 15:13; Start 10/13/16 at 16:00; Stop 10/16/16 at 17:40; Status DC Propofol 100 ml @ As Directed STK-MED ONCE .ROUTE ; Start 10/13/16 at 15:31; Stop 10/13/16 at 15:32; Status DC Sodium Chloride 1,000 ml @ 0 mls/hr Q0M PRN OTHER For Prime & Rinse Back Last administered on 10/21/16 10:43; Start 10/13/16 at 15:54 Heparin Sodium (Porcine) (Heparin Inj) 8,000 units UNSCH PRN IVF WITH DIALYSIS ; Start 10/13/16 at 16:00 Sodium Chloride 1,000 ml @ 200 mls/hr Q5H PRN IV WITH DIALYSIS Last administered on 11/03/16 17:23; Start 10/13/16 at 15:54 Sodium Chloride 1,000 ml @ 0 mls/hr Q0M PRN OTHER WITH DIALYSIS; Start 10/13/16 at 15:54 Mannitol (Mannitol Inj) 12.5 gm UNSCH PRN IV WITH DIALYSIS; Start 10/13/16 at 16 :00 Albumin Human (Albumin 25% Inj) 25 gm UNSCH PRN IV WITH DIALYSIS Last administered on 10/14/16 08:19; Start 10/13/16 at 16:00 Sodium Chloride (NS Flush) 5 ml UNSCH PRN IV FLUSH WITH DIALYSIS Last administered on 10/21/16 10:42; Start 10/13/16 at 16:00 Heparin Sodium (Porcine) (Heparin Inj) UNSCH PRN .XX WITH DIALYSIS Last administered on 11/03/16 17:23; Start 10/13/16 at 16:00 Gentamicin Sulfate (Gentamicin (Dialysis) Inj) 20 mg UNSCH PRN IV WITH DIALYSIS Last administered on 11/03/16 17:23; Start 10/13/16 at 16:00 Ondansetron HCl (Zofran Inj) 4 mg UNSCH PRN IV WITH DIALYSIS; Start 10/13/16 at 16:00 Acetaminophen (Tylenol) 650 mg UNSCH PRN PO for headach, pain, temp > 101F Last administered on 10/21/16 20:36; Start 10/13/16 at 16:00 Diphenhydramine HCl (Benadryl) 25 mg UNSCH PRN PO for hives/itching/ anaphylaxis Last administered on 10/28/16 06:35; Start 10/13/16 at 16:00; Stop 11/01/16 at 11:23; Status DC Nitroglycerin (Nitrostat Sl) 0.4 mg UNSCH PRN SL CHEST PAIN; Start 10/13/16 at 16:00 Clonidine (Catapres) 0.1 mg UNSCH PRN PO for BP > 180/100 X 2 readings Last administered on 10/29/16 16:52; Start 10/13/16 at 16:00; Stop 10/29/16 at 20:11 ; Status DC Gelatin (Gelfoam 12 Mm/7 Mm Top) 1 foam UNSCH PRN TOP SEE LABEL COMMENTS Last administered on 10/15/16 10:39; Start 10/13/16 at 16:00 Propofol 100 ml @ As Directed STK-MED ONCE .ROUTE ; Start 10/13/16 at 18:39; Stop 10/13/16 at 18:40; Status DC Propofol 100 ml @ 4.128 mls/ hr TITRATE PRN IV SEDATION Last administered on 13:36; Start 10/13/16 at 19:15; Stop 10/28/16 at 11:24; Status DC Famotidine (Pepcid Liq) 20 mg BID NG Last administered on 10/15/16 09:19; Start 10/14/16 at 21:00; Stop 10/15/16 at 10:04; Status DC Silver Nitrate/ Potassium Nitrate (Silver Nitrate Applicators) 1 appl UNSCH X1 ONCE TOPICAL Last administered on 10/15/16 09:19; Start 10/15/16 at 09:00; Stop 10/15/16 at 09:01; Status DC Famotidine (Pepcid Liq) 10 mg BID NG Last administered on 10/21/16 09:00; Start 10/15/16 at 21:00; Stop 10/21/16 at 20:09; Status DC Diphenhydramine HCl (Benadryl) 25 mg BID PO Last administered on 10/17/16 08:55 ; Start 10/15/16 at 21:00; Stop 10/17/16 at 09:01; Status DC Dexamethasone Sodium Phosphate (Decadron Inj) 4 mg Q6HR IV PUSH Last administered on 10/16/16 17:57; Start 10/16/16 at 10:00; Stop 10/16/16 at 18:01; Status DC Hydralazine HCl (Apresoline Inj) 20 mg Q3H PRN IV PUSH SBP > 170 Last administered on 11/04/16 15:55; Start 10/16/16 at 15:45 Labetalol HCl (Trandate Inj) 20 mg Q3H PRN IV PUSH SBP > 160 Last administered on 11/01/16 12:39; Start 10/16/16 at 15:45 Atropine Sulfate (Atropine Inj) 1 mg STK-MED ONCE IV ; Start 10/13/16 at 05:00; Stop 10/17/16 at 11:07; Status DC Sodium Bicarbonate (Sodium Bicarbonate 8.4% Inj) 50 meq STK-MED ONCE IV ; Start 10/13/16 at 05:00; Stop 10/17/16 at 11:08; Status DC Sodium Chloride 250 ml @ 15 mls/hr ONCE ONCE IV ; Start 10/18/16 at 09:30; Stop 10/19/16 at 02:09; Status DC Epinephrine HCl (EPINEPHrine (1:10,000) INJ) 1 mg STK-MED ONCE .ROUTE ; Start at 14:51; Stop 10/18/16 at 14:52; Status DC Alteplase, Recombinant (Activase Bolus) 9 mg ONCE ONCE IV Last administered on 10/18/16 16:00; Start 10/18/16 at 16:00; Stop 10/18/16 at 16:03; Status DC Alteplase, Recombinant 81 mg/ Syringe / Bag 81 ml @ 81 mls/hr ONCE ONCE IV Last administered on 10/18/16 16:01; Start 10/18/16 at 16:00; Stop 10/18/16 at 16: 59; Status DC Sodium Chloride (NS Inj) 30 ml ONCE ONCE IVF Last administered on 10/18/16 16: 00; Start 10/18/16 at 16:00; Stop 10/18/16 at 16:02; Status DC Miscellaneous Information No Heparin, Warfarin, Aspir... UNSCH PRN XX SEE DOSE INSTRUCTIONS; Start 10/18/16 at 16:00; Stop 10/19/16 at 15:59; Status DC Micafungin Sodium 150 mg/Sodium Chloride 100 ml @ 100 mls/hr Q24H IV Last administered on 10/18/16 18:32; Start 10/18/16 at 18:00; Stop 10/19/16 at 14:43; Status DC Chlorhexidine Gluconate (Peridex 0.12% Liq) 15 ml BID@08,20 MT Last administered on 10/28/16 10:50; Start 10/18/16 at 20:00 Dexamethasone Sodium Phosphate (Decadron Inj) 4 mg STAT ONCE IV PUSH Last administered on 10/19/16 11:50; Start 10/19/16 at 11:15; Stop 10/19/16 at 11:16; Status DC Racepinephrine (Racepinephrine 2.25% Neb) 0.5 ml STK-MED ONCE .ROUTE ; Start 10/19/16 at 13:19; Stop 10/19/16 at 13:20; Status DC Diphenhydramine HCl (Benadryl) 25 mg Q6H PRN PO ITCHING Last administered on 11:57; Start 10/21/16 at 15:30; Stop 10/23/16 at 10:29; Status DC Famotidine (Pepcid) 10 mg BID PO Last administered on 11/09/16 08:34; Start at 21:00 Calamine (Calamine Lotion) 1 applic Q6H PRN TOPICAL irritated skin Last administered on 11/03/16 20:36; Start 10/21/16 at 22:30 Thiamine HCl (Vitamin B1) 100 mg DAILY PO Last administered on 11/09/16 08:35 ; Start 10/23/16 at 09:00 Diphenhydramine HCl (Benadryl) 50 mg Q6H PRN PO ITCHING Last administered on 05:33; Start 10/23/16 at 15:30; Stop 11/01/16 at 11:23; Status DC Senna/Docusate Sodium (Maira-Colace) 2 tab ONCE ONCE PO Last administered on 12:11; Start 10/23/16 at 10:30; Stop 10/23/16 at 11:05; Status DC Magnesium Hydroxide (Milk Of Magnesia Liq) 30 ml ONCE ONCE PO Last administered on 10/23/16 12:11; Start 10/23/16 at 10:30; Stop 10/23/16 at 11:06 ; Status DC Senna/Docusate Sodium (Maira-Colace) 1 tab BID PO Last administered on 09:00; Start 10/23/16 at 21:00 Lactic Acid (Lac-Hydrin 12% Lotion) 1 applic BID TOPICAL Last administered on 08:37; Start 10/23/16 at 21:00 Cholecalciferol (Vitamin D3) 5,000 units DAILY PO Last administered on 08:33; Start 10/24/16 at 09:00 Cholecalciferol (Vitamin D3) 10,000 units ONCE ONCE PO Last administered on 18:06; Start 10/23/16 at 17:45; Stop 10/23/16 at 17:46; Status DC Senna/Docusate Sodium (Maira-Colace) 1 tab BID PO ; Start 10/24/16 at 21:00; Stop 10/24/16 at 21:00; Status DC Fluconazole (Diflucan) 100 mg Q48H PO Last administered on 10/30/16 18:01; Start 10/24/16 at 17:00; Stop 10/30/16 at 18:24; Status DC Hydralazine HCl (Apresoline) 25 mg Q12HR PO Last administered on 10/28/16 10: 48; Start 10/26/16 at 11:30; Stop 10/28/16 at 13:51; Status DC Diphenhydramine HCl (Benadryl 2% Cream) APPLY TO AFFECTED AREA Q4H PRN TOPICAL ITCHING; Start 10/27/16 at 17:30 Nifedipine (Procardia Xl) 30 mg ONCE ONCE PO Last administered on 10/28/16 18 :37; Start 10/28/16 at 14:30; Stop 10/28/16 at 14:31; Status DC Hydralazine HCl (Apresoline) 25 mg Q8H PO Last administered on 10/31/16 08:25 ; Start 10/28/16 at 16:00; Stop 10/31/16 at 10:30; Status DC Multi-Ingredient Ointment (Eucerin Cream) 1 applic Q6H PRN TOPICAL DRY SKIN Last administered on 11/09/16 08:32; Start 10/29/16 at 12:15 Nifedipine (Procardia Xl) 30 mg DAILY PO Last administered on 11/01/16 09:28; Start 10/29/16 at 12:15; Stop 11/01/16 at 12:00; Status DC Clonidine (Catapres) 0.1 mg Q8H PRN PO for BP > 180/100 X 2 readings Last administered on 11/09/16 05:34; Start 10/29/16 at 20:15 Metoprolol Tartrate (Lopressor) 25 mg DAILY PO Last administered on 11/09/16 08:35; Start 10/30/16 at 10:00 Potassium Chloride (KCl) 30 meq ONCE ONCE PO Last administered on 10/30/16 13 :40; Start 10/30/16 at 11:45; Stop 10/30/16 at 11:46; Status DC Potassium Chloride (KCl) 20 meq ONCE ONCE PO Last administered on 10/30/16 18 :01; Start 10/30/16 at 14:30; Stop 10/30/16 at 14:31; Status DC Hydralazine HCl (Apresoline) 50 mg Q8HR PO Last administered on 11/02/16 05:12 ; Start 10/31/16 at 14:00; Stop 11/02/16 at 10:25; Status DC Hydroxyzine HCl (Atarax) 25 mg Q6H PRN PO ITCHING Last administered on 05:34; Start 11/01/16 at 11:30 Loratadine (Claritin) 10 mg DAILY PO Last administered on 11/09/16 08:34; Start 11/01/16 at 11:30 Nifedipine (Procardia Xl) 60 mg DAILY PO Last administered on 11/04/16 09:07; Start 11/02/16 at 09:00; Stop 11/04/16 at 11:40; Status DC Hydralazine HCl (Apresoline) 75 mg Q8HR PO Last administered on 11/03/16 05:30 ; Start 11/02/16 at 14:00; Stop 11/03/16 at 10:51; Status DC Hydralazine HCl (Apresoline) 100 mg Q8HR PO Last administered on 11/09/16 05: 34; Start 11/03/16 at 14:00 Nifedipine (Procardia Xl) 30 mg ONCE ONCE PO Last administered on 11/04/16 12 :04; Start 11/04/16 at 11:45; Stop 11/04/16 at 11:51; Status DC Nifedipine (Procardia Xl) 90 mg DAILY PO Last administered on 11/05/16 10:02; Start 11/05/16 at 09:00; Stop 11/05/16 at 10:46; Status DC Nifedipine (Procardia Xl) 30 mg ONCE ONCE PO Last administered on 11/05/16 18 :41; Start 11/05/16 at 18:00; Stop 11/05/16 at 18:01; Status DC Nifedipine (Procardia Xl) 60 mg Q12HR PO Last administered on 11/09/16 08:34; Start 11/06/16 at 09:00 Potassium Chloride (KCl) 30 meq ONCE ONCE PO Last administered on 11/07/16 09 :55; Start 11/07/16 at 09:30; Stop 11/07/16 at 09:31; Status DC Heparin Sodium (Porcine) (Heparin Inj) 5,000 units Q12HR SQ Last administered on 11/09/16 08:34; Start 11/07/16 at 21:00 Clonidine (Catapres) 0.1 mg Q12HR PO Last administered on 11/09/16 08:35; Start 11/08/16 at 21:00 Potassium Chloride (KCl) 20 meq ONCE ONCE PO Last administered on 11/08/16 12 :29; Start 11/08/16 at 11:00; Stop 11/08/16 at 11:01; Status DC Dorzolamide HCl (Trusopt 2% Opt Soln) 1 drop BID EACH EYE Last administered on 11/09/16 08:36; Start 11/08/16 at 21:00 Fluorometholone (Fml Liquifilm Opth Susp) 1 drop BID EACH EYE Last administered on 11/09/16 08:36; Start 11/08/16 at 21:00 A/P Assessment and Plan A/P 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 Patient was administered IV thrombolysis following evaluation by neurology Dr. Burton . Subsequently MRI/MRA brain unremarkable. - Urine tox screen came back positive for benzodiazepines placing concern for surreptitious benzodiazepine use as she does not have any benzodiazepine listed on her APR. non-sustained V-tach started on lopressor- echo with EF 60%. continue to monitor. Obesity Hypoventilation Syndrome COPD Sleep Apnea Acute hypoxic and hypercarbic respiratory failure- resolved. Pulmonary Edema - intubated and then extubated 10/16. -Emergently intubated on 10/18 for airway protection due to altered mental status. Extubated on 10/19- now stable. Septic Shock- resolved. pseudomonas bacteremia Severe Tricuspid Regurgitation IV antibiotics per ID recommendations; on Cefepime. Acute kidney injury requiring renal replacement therapy hypokalemia - nephrology following - HD on hold for now per nephrology; awaiting renal recovery. -replaced potassium cautiously in light of renal insufficiency. -monitor the renal function. -- Strict IOs Chronic anemia- likely secondary to chronic disease monitor H/H and transfuse to keep Hb > 7- as needed. LLE osteomyelitis Pseudomonas bacteremia Gram Positive Bacteremia Pseudomonas osteomyelitis Fungal Urinary Tract Infection - ID following. - continue antibiotics per ID. Diabetes -Vitamin D deficiency. -- started on cholecalciferol. -- continue accu-check with sliding scale. hypertension-uncontrolled continue Procardia XL , metoprolol and hydralazine. increase clonidine. continue to monitor and adjust the regimen as needed. DVT Prophylaxis -- subq Heparin Discharge Planning when cleared by ID and nephrology. Roseanna Murphy MD Nov 09, 2016 10:32
--- NOTE | 2016-11-09 14:28 | HHI.NPPN ---
Subjective General Problems: Anemia Renal Failure: Acute Interval History She has made significantly more urine. Today's labs are not available. (Lizy Pineda) Review of Systems General Constitutional: Fatigue (Lizy Pineda) Eyes Eyes: Itching (Lizy Pineda) Ears, Nose, & Throat ENT Remarks loss of appetite (Lizy Pineda) Cardiovascular Cardiac: Edema (Lizy Pineda) Endocrine Endocrine: Thirst (Lizy Pineda) Skin Skin: Skin Rash, Ulcers Skin Remarks generalized rash with peeling skin; ulcer planter surface left foot (Lizy Pineda) Objective Data Data Vital Signs Date Time Temp Pulse Resp B/P (MAP) Pulse Ox O2 Delivery O2 Flow Rate FiO2 11/09/16 08:55 Room Air 11/09/16 08:55 91 11/09/16 08:00 98.7 94 20 184/87 (119) 96 11/09/16 04:00 98.4 96 18 184/84 (117) 98 11/09/16 04:00 Room Air 11/09/16 00:00 97.9 92 20 175/89 (117) 99 11/09/16 00:00 Room Air 11/08/16 20:00 98.0 82 20 179/89 (119) 98 11/08/16 20:00 Room Air 11/08/16 20:00 95 11/08/16 16:00 97.5 89 18 166/77 (106) 96 (Liyz Pineda) -: 11/08/16 0747 Physical Exam General Appearance: No Acute Distress, Comfortable, Obese (Lizy Pineda) Eyes Eye Exam: Pupils Equal, Pupils Reactive (Lizy Pineda) Throat Throat Exam: Oral Mucosa [place] & Moist (Lizy Pineda) Neck Neck Exam: Neck Supple (Lizy Pineda) Pulmonary Resp Exam: Clear Bilaterally, Breath Sounds Equal, No Distress, Decreased Bases (Lizy Pineda) Cardiology CV Exam: Regular, Normal Sinus Rhythm, Good Perfusion (Lizy Pineda) Gastrointestinal/Abdomen GI Exam: Soft, Non-Tender, Bowel Sounds Present (Lizy Pineda) Musculoskeletal MS Exam: Joints Intact, Normal Tone, Unable to Ambulate (Lizy Pineda) Integumentary Skin Exam: Warm, Dry, Intact Skin Remarks left foot ulcer skin is scaly (Lizy Pineda) Extremeties Extremities Exam: Pedal Pulses Palpable, Moderate Edema, Pitting Edema (Lizy Pineda) Neurologic Neuro Exam: Alert, Awake, Oriented, Speech Clear, Moving All Extremities (Lizy Pineda) Psychiatric Psych Exam: Appropriate Responses (Lizy Pineda) Assessment/Plan Discussed Condition With: Patient Assessment Summary: FREDI/Acute Renal Failure Problem List: (1) Acute renal failure ICD Codes: N17.9 - Acute kidney failure, unspecified Status: Acute Plan: She apparently has a baseline creatinine of 1mg/dL FREDI 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 HD initiated on 10/13/16, last HD 11/03. she is making much more urine,likely in recovery phase. Awaiting today's labs She does not have HD access at this time Repeat labs in AM Avoid nephrotoxic agents. Avoid IVF. (2) Sepsis ICD Codes: A41.9 - Sepsis, unspecified organism Plan: + Pseudomonas in the blood, and gram stain of the wound. Currently on Cefepime (x 6 weeks) D/W ID, Midline placement okay (3) Metabolic acidosis ICD Codes: E87.2 - Acidosis Status: Acute Plan: Corrected, monitor (4) Anemia ICD Codes: D64.9 - Anemia Status: Acute Plan: Hb improved, monitor (5) Vitamin D deficiency ICD Codes: E55.9 - Vitamin D deficiency, unspecified Plan: replacement ordered (6) Itching ICD Codes: L29.9 - Pruritus, unspecified Plan: on Benadryl cream also Vistaril PRN with daily Claritin (Lizy Pineda) Plan patient was seen and examined. Non oliguric. Renal function is about the same as yesterday. No plans for dialysis today. Repeat labs tomorrow. (Francisco Javier Quiros MD) Problem Qualifiers (1) Acute renal failure: Qualified Codes: N17.9 - Acute kidney failure, unspecified (2) Anemia: Qualified Codes: D64.9 - Anemia, unspecified Lizy Pineda Nov 09, 2016 14:27 Francisco Javier Quiros MD Nov 09, 2016 17:49
[2016-11-09 15:14] LABS: BICARBONATE 24.2 MEQ/L (21.0-32.0); POTASSIUM 3.6 MEQ/L (3.5-5.1)
[2016-11-09] MEDS: CEFEPIME INJ 1,000 MG in SODIUM CHLORIDE 0.9% INJ 100 ML IV SCH (18:13)
[2016-11-10] VITALS (7 sets, daily range): BP systolic 148–182; BP diastolic 68–89; PULSE 79–89; RESP 16–20; TEMP 97.4–98.4; O2SAT 97–100
[2016-11-10] MEDS: hydrALAZINE HCL 20 MG/ML VIAL IV PUSH PRN (00:34)
[2016-11-10] MEDS: INSULIN NovoLIN REGULAR SUPPLEMENTAL SCALE SQ SCH ×4 (05:44→18:00)
[2016-11-10] MEDS: cloNIDine HCL 0.1 MG TAB PO SCH ×3 (05:44→22:19)
[2016-11-10] MEDS: hydrALAZINE HCL 100 MG TAB PO SCH ×3 (05:44→22:00)
[2016-11-10 07:50] LABS: AUTOMATED NEUTROPHIL # 3.1 TH/MM3 (1.8-7.7); BASOPHIL # 0.1 TH/MM3 (0-0.2); BASOPHIL % 1.3 % (0.0-2.0); EOSINOPHIL # 0.4 TH/MM3 (0-0.4); EOSINOPHIL % 7.7 % (0.0-4.0); HEMATOCRIT 28.4 % (35.0-46.0); HEMO FLAGS DIFF FINAL; LYMPH % 20.4 % (9.0-44.0); LYMPHOCYTE # 1.1 TH/MM3 (1.0-4.8); MEAN CELL VOLUME 92.1 FL (80.0-100.0); MEAN CORPUSCULAR HEMOGLOBIN 29.9 PG (27.0-34.0); MEAN CORPUSCULAR HGB CONC 32.4 % (32.0-36.0); NEUT % 60.6 % (16.0-70.0); PLATELET COUNT 268 TH/MM3 (150-450); RED BLOOD COUNT 3.08 MIL/MM3 (4.00-5.30); WHITE BLOOD COUNT 5.2 TH/MM3 (4.0-11.0)
[2016-11-10] MEDS: SODIUM CHLORIDE 0.9% FLUSH 10 ML FLUSH IV FLUSH SCH ×2 (07:55→20:35)
[2016-11-10] MEDS: CHLORHEXIDINE 0.12% (ORAL KIT) 15 ML CUP MT SCH ×2 (08:00→20:00)
[2016-11-10 08:18] LABS: ALT (GPT) LESS THAN 6 U/L (10-53); ANION GAP 12 MEQ/L (5-15); AST (GOT) 13 U/L (15-37); BICARBONATE 23.3 MEQ/L (21.0-32.0); BLOOD UREA NITROGEN 33 MG/DL (7-18); CHLORIDE 105 MEQ/L (98-107); GLOMERULAR FILTRATION RATE 10 ML/MIN (>89); POTASSIUM 3.5 MEQ/L (3.5-5.1); SODIUM (NA) 140 MEQ/L (136-145)
[2016-11-10 08:21] LABS: ALKALINE PHOSPHATASE 157 U/L (45-117); TOTAL BILIRUBIN ADULT 0.5 MG/DL (0.2-1.0)
[2016-11-10] MEDS: NIFEdipine 60 MG SUSTAINED RELEASE TAB PO SCH ×2 (08:41→20:37)
[2016-11-10] MEDS: CHOLECALCIFEROL (VIT D3) 5000 UNIT CAP PO SCH (08:41)
[2016-11-10] MEDS: METOPROLOL TARTRATE 25 MG TAB PO SCH (08:41)
[2016-11-10] MEDS: HEPARIN SODIUM - SQ 10,000 UNITS/ML VIAL SQ SCH ×2 (08:41→20:37)
[2016-11-10] MEDS: FAMOTIDINE 20 MG TAB PO SCH ×2 (08:41→20:37)
[2016-11-10] MEDS: DOCUSATE SODIUM 50 MG/SENNA 8.6 MG TAB PO SCH ×2 (08:41→20:35)
[2016-11-10] MEDS: LORATADINE 10 MG TAB PO SCH (08:41)
[2016-11-10] MEDS: THIAMINE HCL 100 MG TAB PO SCH (08:41)
[2016-11-10] MEDS: LACTOBACILLUS ACIDOPHILUS TAB PO SCH ×3 (08:41→17:07)
[2016-11-10] MEDS: DORZOLAMIDE 2% OPTH SOLN 200 DROP/10 ML BTLO EACH EYE SCH ×2 (08:42→20:35)
[2016-11-10] MEDS: FLUOROMETHOLONE 0.1% OPHT SUSP 5 ML BTL EACH EYE SCH ×2 (08:42→20:35)
[2016-11-10] MEDS: LACTIC ACID (AMMONIUM LACTATE) 12% LOTION 225 GM BTL TOPICAL SCH ×2 (08:43→20:37)
--- NOTE | 2016-11-10 10:37 | HHI.PR ---
Subjective Remarks looks comfortable. in no distress. denies pain. no fever or sob. Objective Vitals Vital Signs Date Time Temp Pulse Resp B/P (MAP) Pulse Ox O2 Delivery O2 Flow Rate FiO2 11/10/16 04:00 98.0 88 18 179/82 (114) 98 11/10/16 00:00 97.5 88 16 182/89 (120) 99 11/09/16 20:00 99 Room Air 11/09/16 20:00 98.3 84 16 163/77 (105) 99 11/09/16 19:15 84 11/09/16 16:00 98.0 81 20 173/85 (114) 97 11/09/16 12:00 97.5 80 20 186/94 (124) 97 I/O 11/09/16 11/09/16 11/09/16 11/10/16 11/10/16 11/10/16 07:00 15:00 23:00 07:00 15:00 23:00 Intake Total 240 ml 240 ml 240 ml Output Total 600 ml Balance -360 ml 240 ml 240 ml Intake Oral 240 ml 240 ml 240 ml IV Total 0 ml Output Urine Total 600 ml # Voids 0 0 # Bowel Movements 0 0 0 Result Diagram: 11/10/16 0705 11/10/16 0705 Imaging Last Impressions Liver Ultrasound 10/23/16 0000 Signed Impressions: Service Date/Time: Sunday, October 23, 2016 09:45 - CONCLUSION: 1. Gallbladder sludge 2. No evidence of biliary duct dilatation 3. Otherwise unremarkable exam. Jaiden Weston MD Head CT 10/19/16 1700 Signed Impressions: Service Date/Time: October 17:01 - CONCLUSION: No acute intracranial findings Ricco Kulkarni MD Head Magnetic Resonance Angiography 10/18/16 0000 Signed Impressions: Service Date/Time: Tuesday, October 18, 2016 16:23 - CONCLUSION: Normal examination. Ricco Kulkarni MD Chest X-Ray 10/18/16 0000 Signed Impressions: Service Date/Time: Tuesday, October 18, 2016 14:59 - CONCLUSION: 1. Mild to moderate pulmonary vascular congestion. 2. Cardiomegaly. 3. Elevation of the right hemidiaphragm. 4. Endotracheal tube in good position 3 cm above the elsie. 5. Left internal jugular VasCath and left subclavian central line are stable in positions. Raymond Smith MD Brain MRI 10/18/16 Signed Impressions: Service Date/Time: Tuesday, October 18, 2016 16:11 - CONCLUSION: Nonspecific white matter signal change in the left frontal region. No evidence of acute stroke. Ricco Kulkarni MD Ankle X-Ray 10/14/16 Signed Impressions: Service Date/Time: Friday, October 14, 2016 17:01 - CONCLUSION: Marked soft tissue swelling with subcutaneous calcifications. Negative for fracture. Roman Montiel MD FACR Upper Extremity Ultrasound 10/13/16 Signed Impressions: Service Date/Time: Thursday, October 13, 2016 09:17 - CONCLUSION: 1. No DVT. 2. Subcutaneous edema observed. Wilner Potter Jr., MD Lower Extremity Ultrasound 10/13/16 Signed Impressions: Service Date/Time: Thursday, October 13, 2016 08:57 - CONCLUSION: 1. Study has some limitations as detailed above. No DVT observed. Wilner Potter Jr., MD Lower Extremity CT 10/13/16 Signed Impressions: Service Date/Time: Thursday, October 13, 2016 21:35 - CONCLUSION: Ulcer at the region of the base of the fifth metatarsal. There appears to be chronic and acute changes in this region. The acute changes are worrisome for osteomyelitis at the base of the fifth metatarsal. Ricco Fuentes MD Chest CT 10/13/16 Signed Impressions: Service Date/Time: Thursday, October 13, 2016 21:27 - CONCLUSION: 1. Patchy areas of consolidation seen bilaterally being worse on the right. These could represent areas of inflammatory/infectious disease. Focal round lesions to suggest septic emboli are not clearly identified. 2. Edema seen at the right superficial chest and abdomen regions. The cause of for this asymmetric edema is not known. 3. Mild ascites. Ricco Fuentes MD Abdomen CT 10/13/16 Signed Impressions: Service Date/Time: Thursday, October 13, 2016 21:27 - CONCLUSION: 1. Mild ascites seen around the liver. 2. Superficial edema seen bilaterally in the subcutaneous tissues. This is asymmetric and being much more prominent on the right. 3. Small area of increased density seen independently in the gallbladder representing either small gallstones or milk of calcium. Ricco Fuentes MD Renal Ultrasound 10/12/16 0000 Signed Impressions: Service Date/Time: September 20:54 - CONCLUSION: Normal appearance of the kidneys. Ricco Fuentes MD Objective Remarks GENERAL: This is a well-nourished, well-developed patient, in no apparent distress. CARDIOVASCULAR: Regular rate and regular rhythm without murmurs, gallops, or rubs. RESPIRATORY: Clear to auscultation. Breath sounds equal bilaterally. No wheezes , rales, or rhonchi. GASTROINTESTINAL: Abdomen soft, non-tender, nondistended. Normal, active bowel sounds MUSCULOSKELETAL: Extremities without clubbing, cyanosis, or edema. NEURO: Alert & Oriented x4 to person, place, time, situation. Moves all ext x4 Medications and IVs Current Medications Sodium Chloride 1,000 ml @ 999 mls/hr BOLUS ONCE IV Last administered on 10/12 18:59; Start 10/12/16 at 18:15; Stop 10/12/16 at 19:15; Status DC Sodium Bicarbonate 150 meq/Sterile Water 1,000 ml @ 100 mls/hr Q10H IV Last administered on 10/12/16 23:39; Start 10/12/16 at 20:15; Stop 10/13/16 at 05:52 ; Status DC Sodium Chloride (NS Flush) 2 ml UNSCH PRN IV FLUSH FLUSH AFTER USING IV ACCESS ; Start 10/12/16 at 20:15 Sodium Chloride (NS Flush) 2 ml BID IV FLUSH Last administered on 11/10/16 07: 55; Start 10/12/16 at 21:00 Heparin Sodium (Porcine) (Heparin Inj) 5,000 units Q8H SQ Last administered on 10/18/16 12:42; Start 10/13/16 at 06:00; Stop 10/18/16 at 15:57; Status DC Naloxone HCl (Narcan Inj) 0.4 mg UNSCH PRN IV SEE LABEL COMMENTS; Start at 20:15 Calcium Gluconate (Calcium Gluconate Inj) 1 gm ONCE ONCE IV PUSH ; Start at 20:15; Stop 10/12/16 at 21:51; Status DC Insulin Human Regular (NovoLIN R INJ) 10 units ONCE ONCE IV PUSH Last administered on 10/12/16 23:54; Start 10/12/16 at 20:15; Stop 10/12/16 at 21:53 ; Status DC Dextrose (D50w (Syr) Inj) 50 ml ONCE ONCE IV PUSH Last administered on 23:53; Start 10/12/16 at 20:15; Stop 10/12/16 at 21:52; Status DC Sodium Polystyrene Sulfonate (Kayexalate Liq) 30 gm ONCE ONCE PO Last administered on 10/12/16 23:40; Start 10/12/16 at 20:15; Stop 10/12/16 at 21:54 ; Status DC Dextrose (D50w (Vial) Inj) 50 ml UNSCH PRN IV HYPOGLYCEMIA-SEE COMMENTS; Start 10/12/16 at 20:15; Stop 10/13/16 at 07:33; Status DC Glucagon (Glucagon Inj) 1 mg UNSCH PRN OTHER HYPOGLYCEMIA-SEE COMMENTS; Start 10/12/16 at 20:15 Insulin Aspart (NovoLOG SUPPLEMENTAL SCALE) 1 ACHS SLIDING SCALE SQ ; Start at 21:00; Stop 10/13/16 at 07:30; Status DC Calcium Gluconate 1 gm/Sodium Chloride 110 ml @ 110 mls/hr ONCE ONCE IV Last administered on 10/12/16 23:54; Start 10/12/16 at 23:00; Stop 10/12/16 at 23:59 ; Status DC Ipratropium [place] (Atrovent Neb) 0.5 mg Q6HR NEB NEB Last administered on 15:09; Start 10/13/16 at 04:00; Stop 11/06/16 at 09:29; Status DC Ipratropium [place] (Atrovent Neb) 0.5 mg Q2HR NEB PRN NEB wheezing; Start 10/13 at 00:45 Amitriptyline HCl (Elavil) 50 mg HS PO ; Start 10/13/16 at 21:00; Stop 10/13/16 at 21:00; Status DC Hydralazine HCl (Apresoline) 100 mg TID PO ; Start 10/13/16 at 09:00; Stop at 09:00; Status DC Insulin Detemir (Levemir Inj) 20 units AC BREAKFAST SQ ; Start 10/13/16 at 07:00 ; Stop 10/13/16 at 07:00; Status DC Insulin Detemir (Levemir Inj) 25 units HS SQ ; Start 10/13/16 at 21:00; Stop 10/13 at 21:00; Status DC Labetalol HCl (Trandate) 200 mg TID PO ; Start 10/13/16 at 09:00; Stop 10/13/16 at 09:00; Status DC Lactobacillus Acidophilus (Lactinex) 1 tab TIDAC PO Last administered on t 08:41; Start 10/13/16 at 08:00 Loratadine (Claritin) 10 mg DAILY PO ; Start 10/13/16 at 09:00; Stop 10/13/16 at 09:00; Status DC Montelukast Sodium (Singulair) 10 mg HS PO ; Start 10/13/16 at 21:00; Stop at 21:00; Status DC Nifedipine (Procardia Xl) 60 mg TID PO ; Start 10/13/16 at 09:00; Stop 10/13/16 at 09:00; Status DC Pravastatin Sodium (Pravachol) 40 mg DAILY PO ; Start 10/13/16 at 09:00; Stop 10/13/16 at 09:00; Status DC Sodium Chloride 1,000 ml @ 999 mls/hr BOLUS ONCE IV Last administered on t 05:42; Start 10/13/16 at 04:45; Stop 10/13/16 at 05:45; Status DC Sodium Bicarbonate 150 meq/Dextrose 1,150 ml @ 75 mls/hr [id number] IV ; Start 10/13/16 at 08:00; Stop 10/13/16 at 08:00; Status DC Norepinephrine Bitartrate 250 ml @ As Directed STK-MED ONCE IV ; Start 10/13/16 at 07:25; Stop 10/13/16 at 07:26; Status DC Norepinephrine Bitartrate 250 ml @ 7.5 mls/hr TITRATE PRN IV Blood pressure management; Start 10/13/16 at 07:30; Status UNV Terbutaline Sulfate (Brethine Inj) 1 mg UNSCH PRN SQ For Extravasation; Start 10/13/16 at 07:30; Stop 10/28/16 at 11:24; Status DC Sodium Bicarbonate (Sodium Bicarbonate 8.4% Inj) 200 meq ONCE ONCE IV PUSH Last administered on 10/13/16 07:30; Start 10/13/16 at 07:30; Stop 10/13/16 at 07: 35; Status DC Dextrose (D50w (Vial) Inj) 25 ml UNSCH PRN IV PUSH HYPOGLYCEMIA-SEE COMMENTS; Start 10/13/16 at 07:30 Insulin Human Regular (NovoLIN R SUPPLEMENTAL SCALE) 1 Q6HR SQ Last administered on 11/05/16 00:00; Start 10/13/16 at 12:00 Linezolid 300 ml @ 300 mls/hr Q12H IV ; Start 10/13/16 at 08:00; Stop 10/13/16 at 08:07; Status DC Piperacillin Sod/ Tazobactam Sod 50 ml @ 100 mls/hr Q8H IV Last administered on 10/13/16 09:07; Start 10/13/16 at 09:00; Stop 10/13/16 at 14:13; Status DC Norepinephrine Bitartrate 16 mg/ Dextrose 250 ml @ 1.87 mls/hr TITRATE PRN IV Maintain MAP > 65 mmHg; Start 10/13/16 at 08:00; Stop 10/28/16 at 11:24; Status DC Epinephrine HCl 2 mg/Dextrose 252 ml @ 15.12 mls/ hr TITRATE PRN IV Blood Pressure Management; Start 10/13/16 at 08:15; Stop 10/13/16 at 08:47; Status DC Ketamine HCl (Ketalar Inj) 50 mg STAT ONCE IV PUSH ; Start 10/13/16 at 08:15; Stop 10/13/16 at 08:33; Status DC Midazolam HCl (Versed Inj) 2 mg STAT ONCE IV PUSH ; Start 10/13/16 at 08:15; Stop 10/13/16 at 08:31; Status DC Clindamycin Phosphate 900 mg/ Sodium Chloride 106 ml @ 212 mls/hr Q8H IV Last administered on 10/13/16 09:07; Start 10/13/16 at 09:00; Stop 10/13/16 at 13:55; Status DC Epinephrine HCl 8 mg/Dextrose 250 ml @ 5.62 mls/hr TITRATE PRN IV Blood Pressure Management Last administered on 10/13/16 09:07; Start 10/13/16 at 09:00 ; Stop 10/28/16 at 11:24; Status DC Sodium Bicarbonate (Sodium Bicarbonate 8.4% Inj) 200 meq ONCE ONCE IV PUSH Last administered on 10/13/16 11:43; Start 10/13/16 at 11:30; Stop 10/13/16 at 11: 31; Status DC Etomidate (Amidate Inj) 20 mg ONCE ONCE IV PUSH ; Start 10/13/16 at 13:15; Stop 10/13/16 at 14:37; Status DC Midazolam HCl (Versed Inj) 5 mg ONCE ONCE IV PUSH Last administered on 13:15; Start 10/13/16 at 13:15; Stop 10/13/16 at 14:37; Status DC Rocuronium [place] (Zemuron Inj) 100 mg BOLUS ONCE IV Last administered on 10/13 13:15; Start 10/13/16 at 13:15; Stop 10/13/16 at 14:37; Status DC Midazolam HCl (Versed Inj) 5 mg STK-MED ONCE .ROUTE Last administered on 13:20; Start 10/13/16 at 13:20; Stop 10/13/16 at 13:21; Status DC Micafungin Sodium 150 mg/Sodium Chloride 100 ml @ 100 mls/hr Q24H IV Last administered on 10/16/16 16:12; Start 10/13/16 at 17:00; Stop 10/16/16 at 17:40; Status DC Daptomycin 1000 mg/Sodium Chloride 100 ml @ 200 mls/hr Q48H IV Last administered on 10/27/16 16:58; Start 10/13/16 at 16:00; Stop 10/30/16 at 15:59 ; Status DC Cefepime HCl 1000 mg/Sodium Chloride 100 ml @ 200 mls/hr Q24H IV Last administered on 11/09/16 18:13; Start 10/13/16 at 15:00 Metronidazole 100 ml @ 100 mls/hr Q8H IV Last administered on 10/16/16 15:13; Start 10/13/16 at 16:00; Stop 10/16/16 at 17:40; Status DC Propofol 100 ml @ As Directed STK-MED ONCE .ROUTE ; Start 10/13/16 at 15:31; Stop 10/13/16 at 15:32; Status DC Sodium Chloride 1,000 ml @ 0 mls/hr Q0M PRN OTHER For Prime & Rinse Back Last administered on 10/21/16 10:43; Start 10/13/16 at 15:54 Heparin Sodium (Porcine) (Heparin Inj) 8,000 units UNSCH PRN IVF WITH DIALYSIS ; Start 10/13/16 at 16:00 Sodium Chloride 1,000 ml @ 200 mls/hr Q5H PRN IV WITH DIALYSIS Last administered on 11/03/16 17:23; Start 10/13/16 at 15:54 Sodium Chloride 1,000 ml @ 0 mls/hr Q0M PRN OTHER WITH DIALYSIS; Start 10/13/16 at 15:54 Mannitol (Mannitol Inj) 12.5 gm UNSCH PRN IV WITH DIALYSIS; Start 10/13/16 at 16 :00 Albumin Human (Albumin 25% Inj) 25 gm UNSCH PRN IV WITH DIALYSIS Last administered on 10/14/16 08:19; Start 10/13/16 at 16:00 Sodium Chloride (NS Flush) 5 ml UNSCH PRN IV FLUSH WITH DIALYSIS Last administered on 10/21/16 10:42; Start 10/13/16 at 16:00 Heparin Sodium (Porcine) (Heparin Inj) UNSCH PRN .XX WITH DIALYSIS Last administered on 11/03/16 17:23; Start 10/13/16 at 16:00 Gentamicin Sulfate (Gentamicin (Dialysis) Inj) 20 mg UNSCH PRN IV WITH DIALYSIS Last administered on 11/03/16 17:23; Start 10/13/16 at 16:00 Ondansetron HCl (Zofran Inj) 4 mg UNSCH PRN IV WITH DIALYSIS; Start 10/13/16 at 16:00 Acetaminophen (Tylenol) 650 mg UNSCH PRN PO for headach, pain, temp > 101F Last administered on 10/21/16 20:36; Start 10/13/16 at 16:00 Diphenhydramine HCl (Benadryl) 25 mg UNSCH PRN PO for hives/itching/ anaphylaxis Last administered on 10/28/16 06:35; Start 10/13/16 at 16:00; Stop 11/01/16 at 11:23; Status DC Nitroglycerin (Nitrostat Sl) 0.4 mg UNSCH PRN SL CHEST PAIN; Start 10/13/16 at 16:00 Clonidine (Catapres) 0.1 mg UNSCH PRN PO for BP > 180/100 X 2 readings Last administered on 10/29/16 16:52; Start 10/13/16 at 16:00; Stop 10/29/16 at 20:11 ; Status DC Gelatin (Gelfoam 12 Mm/7 Mm Top) 1 foam UNSCH PRN TOP SEE LABEL COMMENTS Last administered on 10/15/16 10:39; Start 10/13/16 at 16:00 Propofol 100 ml @ As Directed STK-MED ONCE .ROUTE ; Start 10/13/16 at 18:39; Stop 10/13/16 at 18:40; Status DC Propofol 100 ml @ 4.128 mls/ hr TITRATE PRN IV SEDATION Last administered on 13:36; Start 10/13/16 at 19:15; Stop 10/28/16 at 11:24; Status DC Famotidine (Pepcid Liq) 20 mg BID NG Last administered on 10/15/16 09:19; Start 10/14/16 at 21:00; Stop 10/15/16 at 10:04; Status DC Silver Nitrate/ Potassium Nitrate (Silver Nitrate Applicators) 1 appl UNSCH X1 ONCE TOPICAL Last administered on 10/15/16 09:19; Start 10/15/16 at 09:00; Stop 10/15/16 at 09:01; Status DC Famotidine (Pepcid Liq) 10 mg BID NG Last administered on 10/21/16 09:00; Start 10/15/16 at 21:00; Stop 10/21/16 at 20:09; Status DC Diphenhydramine HCl (Benadryl) 25 mg BID PO Last administered on 10/17/16 08:55 ; Start 10/15/16 at 21:00; Stop 10/17/16 at 09:01; Status DC Dexamethasone Sodium Phosphate (Decadron Inj) 4 mg Q6HR IV PUSH Last administered on 10/16/16 17:57; Start 10/16/16 at 10:00; Stop 10/16/16 at 18:01; Status DC Hydralazine HCl (Apresoline Inj) 20 mg Q3H PRN IV PUSH SBP > 170 Last administered on 11/10/16 00:34; Start 10/16/16 at 15:45 Labetalol HCl (Trandate Inj) 20 mg Q3H PRN IV PUSH SBP > 160 Last administered on 11/01/16 12:39; Start 10/16/16 at 15:45 Atropine Sulfate (Atropine Inj) 1 mg STK-MED ONCE IV ; Start 10/13/16 at 05:00; Stop 10/17/16 at 11:07; Status DC Sodium Bicarbonate (Sodium Bicarbonate 8.4% Inj) 50 meq STK-MED ONCE IV ; Start 10/13/16 at 05:00; Stop 10/17/16 at 11:08; Status DC Sodium Chloride 250 ml @ 15 mls/hr ONCE ONCE IV ; Start 10/18/16 at 09:30; Stop 10/19/16 at 02:09; Status DC Epinephrine HCl (EPINEPHrine (1:10,000) INJ) 1 mg STK-MED ONCE .ROUTE ; Start at 14:51; Stop 10/18/16 at 14:52; Status DC Alteplase, Recombinant (Activase Bolus) 9 mg ONCE ONCE IV Last administered on 10/18/16 16:00; Start 10/18/16 at 16:00; Stop 10/18/16 at 16:03; Status DC Alteplase, Recombinant 81 mg/ Syringe / Bag 81 ml @ 81 mls/hr ONCE ONCE IV Last administered on 10/18/16 16:01; Start 10/18/16 at 16:00; Stop 10/18/16 at 16: 59; Status DC Sodium Chloride (NS Inj) 30 ml ONCE ONCE IVF Last administered on 10/18/16 16: 00; Start 10/18/16 at 16:00; Stop 10/18/16 at 16:02; Status DC Miscellaneous Information No Heparin, Warfarin, Aspir... UNSCH PRN XX SEE DOSE INSTRUCTIONS; Start 10/18/16 at 16:00; Stop 10/19/16 at 15:59; Status DC Micafungin Sodium 150 mg/Sodium Chloride 100 ml @ 100 mls/hr Q24H IV Last administered on 10/18/16 18:32; Start 10/18/16 at 18:00; Stop 10/19/16 at 14:43; Status DC Chlorhexidine Gluconate (Peridex 0.12% Liq) 15 ml BID@08,20 MT Last administered on 11/10/16 08:00; Start 10/18/16 at 20:00 Dexamethasone Sodium Phosphate (Decadron Inj) 4 mg STAT ONCE IV PUSH Last administered on 10/19/16 11:50; Start 10/19/16 at 11:15; Stop 10/19/16 at 11:16; Status DC Racepinephrine (Racepinephrine 2.25% Neb) 0.5 ml STK-MED ONCE .ROUTE ; Start 10/19/16 at 13:19; Stop 10/19/16 at 13:20; Status DC Diphenhydramine HCl (Benadryl) 25 mg Q6H PRN PO ITCHING Last administered on 11:57; Start 10/21/16 at 15:30; Stop 10/23/16 at 10:29; Status DC Famotidine (Pepcid) 10 mg BID PO Last administered on 11/10/16 08:41; Start at 21:00 Calamine (Calamine Lotion) 1 applic Q6H PRN TOPICAL irritated skin Last administered on 11/03/16 20:36; Start 10/21/16 at 22:30 Thiamine HCl (Vitamin B1) 100 mg DAILY PO Last administered on 11/10/16 08:41 ; Start 10/23/16 at 09:00 Diphenhydramine HCl (Benadryl) 50 mg Q6H PRN PO ITCHING Last administered on 05:33; Start 10/23/16 at 15:30; Stop 11/01/16 at 11:23; Status DC Senna/Docusate Sodium (Maira-Colace) 2 tab ONCE ONCE PO Last administered on 12:11; Start 10/23/16 at 10:30; Stop 10/23/16 at 11:05; Status DC Magnesium Hydroxide (Milk Of Magnesia Liq) 30 ml ONCE ONCE PO Last administered on 10/23/16 12:11; Start 10/23/16 at 10:30; Stop 10/23/16 at 11:06 ; Status DC Senna/Docusate Sodium (Maira-Colace) 1 tab BID PO Last administered on 08:41; Start 10/23/16 at 21:00 Lactic Acid (Lac-Hydrin 12% Lotion) 1 applic BID TOPICAL Last administered on 08:43; Start 10/23/16 at 21:00 Cholecalciferol (Vitamin D3) 5,000 units DAILY PO Last administered on 08:41; Start 10/24/16 at 09:00 Cholecalciferol (Vitamin D3) 10,000 units ONCE ONCE PO Last administered on 18:06; Start 10/23/16 at 17:45; Stop 10/23/16 at 17:46; Status DC Senna/Docusate Sodium (Maira-Colace) 1 tab BID PO ; Start 10/24/16 at 21:00; Stop 10/24/16 at 21:00; Status DC Fluconazole (Diflucan) 100 mg Q48H PO Last administered on 10/30/16 18:01; Start 10/24/16 at 17:00; Stop 10/30/16 at 18:24; Status DC Hydralazine HCl (Apresoline) 25 mg Q12HR PO Last administered on 10/28/16 10: 48; Start 10/26/16 at 11:30; Stop 10/28/16 at 13:51; Status DC Diphenhydramine HCl (Benadryl 2% Cream) APPLY TO AFFECTED AREA Q4H PRN TOPICAL ITCHING; Start 10/27/16 at 17:30 Nifedipine (Procardia Xl) 30 mg ONCE ONCE PO Last administered on 10/28/16 18 :37; Start 10/28/16 at 14:30; Stop 10/28/16 at 14:31; Status DC Hydralazine HCl (Apresoline) 25 mg Q8H PO Last administered on 10/31/16 08:25 ; Start 10/28/16 at 16:00; Stop 10/31/16 at 10:30; Status DC Multi-Ingredient Ointment (Eucerin Cream) 1 applic Q6H PRN TOPICAL DRY SKIN Last administered on 11/09/16 08:32; Start 10/29/16 at 12:15 Nifedipine (Procardia Xl) 30 mg DAILY PO Last administered on 11/01/16 09:28; Start 10/29/16 at 12:15; Stop 11/01/16 at 12:00; Status DC Clonidine (Catapres) 0.1 mg Q8H PRN PO for BP > 180/100 X 2 readings Last administered on 11/09/16 05:34; Start 10/29/16 at 20:15 Metoprolol Tartrate (Lopressor) 25 mg DAILY PO Last administered on 11/10/16 08:41; Start 10/30/16 at 10:00 Potassium Chloride (KCl) 30 meq ONCE ONCE PO Last administered on 10/30/16 13 :40; Start 10/30/16 at 11:45; Stop 10/30/16 at 11:46; Status DC Potassium Chloride (KCl) 20 meq ONCE ONCE PO Last administered on 10/30/16 18 :01; Start 10/30/16 at 14:30; Stop 10/30/16 at 14:31; Status DC Hydralazine HCl (Apresoline) 50 mg Q8HR PO Last administered on 11/02/16 05:12 ; Start 10/31/16 at 14:00; Stop 11/02/16 at 10:25; Status DC Hydroxyzine HCl (Atarax) 25 mg Q6H PRN PO ITCHING Last administered on 21:36; Start 11/01/16 at 11:30 Loratadine (Claritin) 10 mg DAILY PO Last administered on 11/10/16 08:41; Start 11/01/16 at 11:30 Nifedipine (Procardia Xl) 60 mg DAILY PO Last administered on 11/04/16 09:07; Start 11/02/16 at 09:00; Stop 11/04/16 at 11:40; Status DC Hydralazine HCl (Apresoline) 75 mg Q8HR PO Last administered on 11/03/16 05:30 ; Start 11/02/16 at 14:00; Stop 11/03/16 at 10:51; Status DC Hydralazine HCl (Apresoline) 100 mg Q8HR PO Last administered on 11/10/16 05: 44; Start 11/03/16 at 14:00 Nifedipine (Procardia Xl) 30 mg ONCE ONCE PO Last administered on 11/04/16 12 :04; Start 11/04/16 at 11:45; Stop 11/04/16 at 11:51; Status DC Nifedipine (Procardia Xl) 90 mg DAILY PO Last administered on 11/05/16 10:02; Start 11/05/16 at 09:00; Stop 11/05/16 at 10:46; Status DC Nifedipine (Procardia Xl) 30 mg ONCE ONCE PO Last administered on 11/05/16 18 :41; Start 11/05/16 at 18:00; Stop 11/05/16 at 18:01; Status DC Nifedipine (Procardia Xl) 60 mg Q12HR PO Last administered on 11/10/16 08:41; Start 11/06/16 at 09:00 Potassium Chloride (KCl) 30 meq ONCE ONCE PO Last administered on 11/07/16 09 :55; Start 11/07/16 at 09:30; Stop 11/07/16 at 09:31; Status DC Heparin Sodium (Porcine) (Heparin Inj) 5,000 units Q12HR SQ Last administered on 11/10/16 08:41; Start 11/07/16 at 21:00 Clonidine (Catapres) 0.1 mg Q12HR PO Last administered on 11/09/16 08:35; Start 11/08/16 at 21:00; Stop 11/09/16 at 10:34; Status DC Potassium Chloride (KCl) 20 meq ONCE ONCE PO Last administered on 11/08/16 12 :29; Start 11/08/16 at 11:00; Stop 11/08/16 at 11:01; Status DC Dorzolamide HCl (Trusopt 2% Opth Soln) 1 drop BID EACH EYE Last administered on 11/10/16 08:42; Start 11/08/16 at 21:00 Fluorometholone (Fml Liquifilm Opth Susp) 1 drop BID EACH EYE Last administered on 11/10/16 08:42; Start 11/08/16 at 21:00 Clonidine (Catapres) 0.1 mg Q8HR PO Last administered on 11/10/16 05:44; Start 11/09/16 at 14:00 A/P Assessment and Plan A/P 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 Patient was administered IV thrombolysis following evaluation by neurology Dr. Burton . Subsequently MRI/MRA brain unremarkable. - Urine tox screen came back positive for benzodiazepines placing concern for surreptitious benzodiazepine use as she does not have any benzodiazepine listed on her MAR. non-sustained V-tach started on lopressor- echo with EF 60%. continue to monitor. Obesity Hypoventilation Syndrome COPD Sleep Apnea Acute hypoxic and hypercarbic respiratory failure- resolved. Pulmonary Edema - intubated and then extubated 10/16. -Emergently intubated on 10/18 for airway protection due to altered mental status. Extubated on 10/19- now stable. Septic Shock- resolved. pseudomonas bacteremia Severe Tricuspid Regurgitation IV antibiotics per ID recommendations; on Cefepime. Acute kidney injury requiring renal replacement therapy hypokalemia - nephrology following - HD on hold for now per nephrology; awaiting renal recovery ( previously d/w ). -monitor the renal function closely. -- Strict IOs Chronic anemia- likely secondary to chronic disease H/H fairly stable. monitor H/H and transfuse to keep Hb > 7- as needed. LLE osteomyelitis Pseudomonas bacteremia Gram Positive Bacteremia Pseudomonas osteomyelitis Fungal Urinary Tract Infection - ID following. - continue antibiotics per ID. Diabetes -Vitamin D deficiency. -- started on cholecalciferol. -- continue accu-check with sliding scale. hypertension-uncontrolled continue Procardia XL , metoprolol and hydralazine and clonidine. continue to monitor and adjust the regimen as needed. DVT Prophylaxis -- subq Heparin Discharge Planning when cleared by ID and nephrology. Roseanna Murphy MD Nov 10, 2016 10:37
[2016-11-10] MEDS: CEFEPIME INJ 1,000 MG in SODIUM CHLORIDE 0.9% INJ 100 ML IV SCH (14:46)
--- NOTE | 2016-11-10 16:11 | HHI.NPPN ---
Subjective General Problems: Anemia Renal Failure: Acute Interval History Her creatinine improved. She looks better. Excited about possible discharge. (Lizy Pineda) Review of Systems General Constitutional: Fatigue (Lizy Pineda) Eyes Eyes: Itching (Lizy Pineda) Ears, Nose, & Throat ENT Remarks loss of appetite (Lizy Pineda) Cardiovascular Cardiac: Edema (Lizy Pineda) Endocrine Endocrine: Thirst (Lizy Pineda) Skin Skin: Skin Rash, Ulcers Skin Remarks generalized rash with peeling skin; ulcer planter surface left foot (Lizy Pineda) Objective Data Data Vital Signs Date Time Temp Pulse Resp B/P (MAP) Pulse Ox O2 Delivery O2 Flow Rate FiO2 11/10/16 13:44 Room Air 21 11/10/16 12:02 98.1 79 20 174/84 (114) 97 11/10/16 08:02 98.4 89 20 175/83 (113) 98 11/10/16 04:00 98.0 88 18 179/82 (114) 98 11/10/16 00:00 97.5 88 16 182/89 (120) 99 11/09/16 20:00 99 Room Air 11/09/16 20:00 98.3 84 16 163/77 (105) 99 11/09/16 19:15 84 (Lizy Pineda) -: 11/10/16 0705 11/10/16 0705 Physical Exam General Appearance: No Acute Distress, Comfortable, Obese (Lizy Pineda) Eyes Eye Exam: Pupils Equal, Pupils Reactive (Lizy Pineda) Throat Throat Exam: Oral Mucosa [place] & Moist (Lizy Pineda) Neck Neck Exam: Neck Supple (Lizy Pineda) Pulmonary Resp Exam: Clear Bilaterally, Breath Sounds Equal, No Distress, Decreased Bases (Lizy Pineda) Cardiology CV Exam: Regular, Normal Sinus Rhythm, Good Perfusion (Lizy Pineda) Gastrointestinal/Abdomen GI Exam: Soft, Non-Tender, Bowel Sounds Present (Lizy Pineda) Musculoskeletal MS Exam: Joints Intact, Normal Tone, Unable to Ambulate (Lizy Pineda) Integumentary Skin Exam: Warm, Dry, Intact Skin Remarks left foot ulcer, wrapped (Lizy Pineda) Extremeties Extremities Exam: Pedal Pulses Palpable, Moderate Edema, Pitting Edema (Lizy Pineda) Neurologic Neuro Exam: Alert, Awake, Oriented, Speech Clear, Moving All Extremities (Lizy Pineda) Psychiatric Psych Exam: Appropriate Responses (Lizy Pineda) Assessment/Plan Discussed Condition With: Patient Assessment Summary: FREDI/Acute Renal Failure Problem List: (1) Acute renal failure ICD Codes: N17.9 - Acute kidney failure, unspecified Status: Acute Plan: She apparently has a baseline creatinine of 1mg/dL FREDI 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 HD initiated on 10/13/16, last HD 11/03. She is in renal recovery urine output has improved No further indication for dialysis Avoid nephrotoxic agents. Avoid IVF. (2) Sepsis ICD Codes: A41.9 - Sepsis, unspecified organism Plan: + Pseudomonas in the blood, and gram stain of the wound. Currently on Cefepime (x 6 weeks) D/W ID, Midline placement okay (3) Metabolic acidosis ICD Codes: E87.2 - Acidosis Status: Acute Plan: Corrected, monitor (4) Anemia ICD Codes: D64.9 - Anemia Status: Acute Plan: Hb improved, monitor (5) Vitamin D deficiency ICD Codes: E55.9 - Vitamin D deficiency, unspecified Plan: replacement ordered (6) Itching ICD Codes: L29.9 - Pruritus, unspecified Plan: on Benadryl cream also Vistaril PRN with daily Claritin (Lizy Pineda) Problem List: (1) Acute renal failure ICD Codes: N17.9 - Acute kidney failure, unspecified Status: Acute Plan: She apparently has a baseline creatinine of 1mg/dL FREDI 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 HD initiated on 10/13/16, last HD 11/03. She is in renal recovery urine output has improved No further indication for dialysis Avoid nephrotoxic agents. Avoid IVF. (2) Sepsis ICD Codes: A41.9 - Sepsis, unspecified organism Plan: + Pseudomonas in the blood, and gram stain of the wound. Currently on Cefepime (x 6 weeks) D/W ID, Midline placement okay (3) Metabolic acidosis ICD Codes: E87.2 - Acidosis Status: Acute Plan: Corrected, monitor (4) Anemia ICD Codes: D64.9 - Anemia Status: Acute Plan: Hb improved, monitor (5) Vitamin D deficiency ICD Codes: E55.9 - Vitamin D deficiency, unspecified Plan: replacement ordered (6) Itching ICD Codes: L29.9 - Pruritus, unspecified Plan: on Benadryl cream also Vistaril PRN with daily Claritin Plan patient was seen and examined. Renal function is improving. No indication for dialysis. Avoid nephrotoxic agents. (Francisco Javier Quiros MD) Problem Qualifiers (1) Acute renal failure: Qualified Codes: N17.9 - Acute kidney failure, unspecified (2) Anemia: Qualified Codes: D64.9 - Anemia, unspecified Lizy Pineda Nov 10, 2016 16:11 Francisco Javier Quiros MD Nov 11, 2016 07:02
[2016-11-10] MEDS: hydrOXYzine HCL 25 MG TAB PO PRN (20:42)
[2016-11-11] VITALS (9 sets, daily range): BP systolic 152–175; BP diastolic 72–98; PULSE 79–102; RESP 16–20; TEMP 97.6–98.2; O2SAT 95–98
[2016-11-11] MEDS: hydrALAZINE HCL 20 MG/ML VIAL IV PUSH PRN (00:48)
[2016-11-11] MEDS: EUCERIN CREAM 120 GM JAR TOPICAL PRN (00:55)
[2016-11-11] MEDS: hydrALAZINE HCL 100 MG TAB PO SCH ×3 (05:17→20:58)
[2016-11-11] MEDS: cloNIDine HCL 0.1 MG TAB PO SCH ×3 (05:18→20:58)
[2016-11-11] MEDS: hydrOXYzine HCL 25 MG TAB PO PRN ×3 (05:18→20:58)
[2016-11-11] MEDS: INSULIN NovoLIN REGULAR SUPPLEMENTAL SCALE SQ SCH ×4 (05:22→17:17)
[2016-11-11] MEDS: CHLORHEXIDINE 0.12% (ORAL KIT) 15 ML CUP MT SCH ×2 (07:40→20:00)
[2016-11-11] MEDS: LACTIC ACID (AMMONIUM LACTATE) 12% LOTION 225 GM BTL TOPICAL SCH ×2 (09:00→21:02)
[2016-11-11] MEDS: THIAMINE HCL 100 MG TAB PO SCH (09:54)
[2016-11-11] MEDS: DOCUSATE SODIUM 50 MG/SENNA 8.6 MG TAB PO SCH ×2 (09:54→20:59)
[2016-11-11] MEDS: FAMOTIDINE 20 MG TAB PO SCH ×2 (09:54→20:58)
[2016-11-11] MEDS: CHOLECALCIFEROL (VIT D3) 5000 UNIT CAP PO SCH (09:54)
[2016-11-11] MEDS: LORATADINE 10 MG TAB PO SCH (09:54)
[2016-11-11] MEDS: HEPARIN SODIUM - SQ 10,000 UNITS/ML VIAL SQ SCH ×2 (09:54→20:59)
[2016-11-11] MEDS: LACTOBACILLUS ACIDOPHILUS TAB PO SCH ×3 (09:54→17:17)
[2016-11-11] MEDS: METOPROLOL TARTRATE 25 MG TAB PO SCH (09:54)
[2016-11-11] MEDS: NIFEdipine 60 MG SUSTAINED RELEASE TAB PO SCH ×2 (09:54→20:58)
[2016-11-11] MEDS: DORZOLAMIDE 2% OPTH SOLN 200 DROP/10 ML BTLO EACH EYE SCH ×2 (09:55→21:02)
[2016-11-11] MEDS: FLUOROMETHOLONE 0.1% OPHT SUSP 5 ML BTL EACH EYE SCH ×2 (09:55→21:02)
[2016-11-11] MEDS: SODIUM CHLORIDE 0.9% FLUSH 10 ML FLUSH IV FLUSH SCH ×2 (09:55→21:00)
--- NOTE | 2016-11-11 12:51 | HHI.PR ---
Subjective Remarks in no acute distress. overall doing fine. afebrile. Objective Vitals Vital Signs Date Time Temp Pulse Resp B/P (MAP) Pulse Ox O2 Delivery O2 Flow Rate FiO2 11/11/16 11:42 87 11/11/16 09:51 Room Air 11/11/16 08:00 98.1 89 16 165/98 (120) 98 11/11/16 04:09 Room Air 11/11/16 04:00 98.2 88 20 165/75 (105) 96 11/11/16 01:29 152/72 (98) 11/11/16 00:00 Room Air 11/11/16 00:00 98.2 102 20 171/77 (108) 95 11/10/16 20:26 85 11/10/16 20:00 Room Air 11/10/16 20:00 98.1 82 19 154/75 (101) 100 11/10/16 16:02 97.4 79 20 148/68 (94) 99 11/10/16 13:44 Room Air 21 I/O 11/10/16 11/10/16 11/10/16 11/11/16 11/11/16 11/11/16 07:00 15:00 23:00 07:00 15:00 23:00 Intake Total 240 ml 480 ml 650 ml Output Total 400 ml Balance 240 ml 80 ml 650 ml Intake Oral 240 ml 280 ml 650 ml IV Total 0 ml 200 ml Output Urine Total 400 ml # Voids 0 1 # Bowel Movements 0 0 Result Diagram: 11/10/16 0705 11/10/16 0705 Imaging Last Impressions Liver Ultrasound 10/23/16 0000 Signed Impressions: Service Date/Time: Sunday, October 23, 2016 09:45 - CONCLUSION: 1. Gallbladder sludge 2. No evidence of biliary duct dilatation 3. Otherwise unremarkable exam. Jaiden Weston MD Head CT 10/19/16 1700 Signed Impressions: Service Date/Time: October 17:01 - CONCLUSION: No acute intracranial findings Ricco Kulkarni MD Head Magnetic Resonance Angiography 10/18/16 0000 Signed Impressions: Service Date/Time: Tuesday, October 18, 2016 16:23 - CONCLUSION: Normal examination. Ricco Kulkarni MD Chest X-Ray 10/18/16 0000 Signed Impressions: Service Date/Time: Tuesday, October 18, 2016 14:59 - CONCLUSION: 1. Mild to moderate pulmonary vascular congestion. 2. Cardiomegaly. 3. Elevation of the right hemidiaphragm. 4. Endotracheal tube in good position 3 cm above the elsie. 5. Left internal jugular VasCath and left subclavian central line are stable in positions. Raymond Smith MD Brain MRI 10/18/16 Signed Impressions: Service Date/Time: Tuesday, October 18, 2016 16:11 - CONCLUSION: Nonspecific white matter signal change in the left frontal region. No evidence of acute stroke. Ricco Kulkarni MD Ankle X-Ray 10/14/16 Signed Impressions: Service Date/Time: Friday, October 14, 2016 17:01 - CONCLUSION: Marked soft tissue swelling with subcutaneous calcifications. Negative for fracture. Roman Montiel MD FACR Upper Extremity Ultrasound 10/13/16 Signed Impressions: Service Date/Time: Thursday, October 13, 2016 09:17 - CONCLUSION: 1. No DVT. 2. Subcutaneous edema observed. Wilner Potter Jr., MD Lower Extremity Ultrasound 10/13/16 Signed Impressions: Service Date/Time: Thursday, October 13, 2016 08:57 - CONCLUSION: 1. Study has some limitations as detailed above. No DVT observed. Wilner Potter Jr., MD Lower Extremity CT 10/13/16 Signed Impressions: Service Date/Time: Thursday, October 13, 2016 21:35 - CONCLUSION: Ulcer at the region of the base of the fifth metatarsal. There appears to be chronic and acute changes in this region. The acute changes are worrisome for osteomyelitis at the base of the fifth metatarsal. Ricco Fuentes MD Chest CT 10/13/16 Signed Impressions: Service Date/Time: Thursday, October 13, 2016 21:27 - CONCLUSION: 1. Patchy areas of consolidation seen bilaterally being worse on the right. These could represent areas of inflammatory/infectious disease. Focal round lesions to suggest septic emboli are not clearly identified. 2. Edema seen at the right superficial chest and abdomen regions. The cause of for this asymmetric edema is not known. 3. Mild ascites. Ricco Fuentes MD Abdomen CT 10/13/16 Signed Impressions: Service Date/Time: Thursday, October 13, 2016 21:27 - CONCLUSION: 1. Mild ascites seen around the liver. 2. Superficial edema seen bilaterally in the subcutaneous tissues. This is asymmetric and being much more prominent on the right. 3. Small area of increased density seen independently in the gallbladder representing either small gallstones or milk of calcium. Ricco Fuentes MD Renal Ultrasound 10/12/16 0000 Signed Impressions: Service Date/Time: September 20:54 - CONCLUSION: Normal appearance of the kidneys. Ricco Fuentes MD Objective Remarks GENERAL: This is a well-nourished, well-developed patient, in no apparent distress. CARDIOVASCULAR: Regular rate and regular rhythm without murmurs, gallops, or rubs. RESPIRATORY: Clear to auscultation. Breath sounds equal bilaterally. No wheezes , rales, or rhonchi. GASTROINTESTINAL: Abdomen soft, non-tender, nondistended. Normal, active bowel sounds MUSCULOSKELETAL: Extremities without clubbing, cyanosis, or edema. NEURO: Alert & Oriented x4 to person, place, time, situation. Moves all ext x4 Medications and IVs Current Medications Sodium Chloride 1,000 ml @ 999 mls/hr BOLUS ONCE IV Last administered on 10/12 18:59; Start 10/12/16 at 18:15; Stop 10/12/16 at 19:15; Status DC Sodium Bicarbonate 150 meq/Sterile Water 1,000 ml @ 100 mls/hr Q10H IV Last administered on 10/12/16 23:39; Start 10/12/16 at 20:15; Stop 10/13/16 at 05:52 ; Status DC Sodium Chloride (NS Flush) 2 ml UNSCH PRN IV FLUSH FLUSH AFTER USING IV ACCESS ; Start 10/12/16 at 20:15 Sodium Chloride (NS Flush) 2 ml BID IV FLUSH Last administered on 11/11/16 09: 55; Start 10/12/16 at 21:00 Heparin Sodium (Porcine) (Heparin Inj) 5,000 units Q8H SQ Last administered on 10/18/16 12:42; Start 10/13/16 at 06:00; Stop 10/18/16 at 15:57; Status DC Naloxone HCl (Narcan Inj) 0.4 mg UNSCH PRN IV SEE LABEL COMMENTS; Start at 20:15 Calcium Gluconate (Calcium Gluconate Inj) 1 gm ONCE ONCE IV PUSH ; Start at 20:15; Stop 10/12/16 at 21:51; Status DC Insulin Human Regular (NovoLIN R INJ) 10 units ONCE ONCE IV PUSH Last administered on 10/12/16 23:54; Start 10/12/16 at 20:15; Stop 10/12/16 at 21:53 ; Status DC Dextrose (D50w (Syr) Inj) 50 ml ONCE ONCE IV PUSH Last administered on 23:53; Start 10/12/16 at 20:15; Stop 10/12/16 at 21:52; Status DC Sodium Polystyrene Sulfonate (Kayexalate Liq) 30 gm ONCE ONCE PO Last administered on 10/12/16 23:40; Start 10/12/16 at 20:15; Stop 10/12/16 at 21:54 ; Status DC Dextrose (D50w (Vial) Inj) 50 ml UNSCH PRN IV HYPOGLYCEMIA-SEE COMMENTS; Start 10/12/16 at 20:15; Stop 10/13/16 at 07:33; Status DC Glucagon (Glucagon Inj) 1 mg UNSCH PRN OTHER HYPOGLYCEMIA-SEE COMMENTS; Start 10/12/16 at 20:15 Insulin Aspart (NovoLOG SUPPLEMENTAL SCALE) 1 ACHS SLIDING SCALE SQ ; Start at 21:00; Stop 10/13/16 at 07:30; Status DC Calcium Gluconate 1 gm/Sodium Chloride 110 ml @ 110 mls/hr ONCE ONCE IV Last administered on 10/12/16 23:54; Start 10/12/16 at 23:00; Stop 10/12/16 at 23:59 ; Status DC Ipratropium [place] (Atrovent Neb) 0.5 mg Q6HR NEB NEB Last administered on 15:09; Start 10/13/16 at 04:00; Stop 11/06/16 at 09:29; Status DC Ipratropium [place] (Atrovent Neb) 0.5 mg Q2HR NEB PRN NEB wheezing; Start 10/13 at 00:45 Amitriptyline HCl (Elavil) 50 mg HS PO ; Start 10/13/16 at 21:00; Stop 10/13/16 at 21:00; Status DC Hydralazine HCl (Apresoline) 100 mg TID PO ; Start 10/13/16 at 09:00; Stop at 09:00; Status DC Insulin Detemir (Levemir Inj) 20 units AC BREAKFAST SQ ; Start 10/13/16 at 07:00 ; Stop 10/13/16 at 07:00; Status DC Insulin Detemir (Levemir Inj) 25 units HS SQ ; Start 10/13/16 at 21:00; Stop 10/13 at 21:00; Status DC Labetalol HCl (Trandate) 200 mg TID PO ; Start 10/13/16 at 09:00; Stop 10/13/16 at 09:00; Status DC Lactobacillus Acidophilus (Lactinex) 1 tab TIDAC PO Last administered on t 09:54; Start 10/13/16 at 08:00 Loratadine (Claritin) 10 mg DAILY PO ; Start 10/13/16 at 09:00; Stop 10/13/16 at 09:00; Status DC Montelukast Sodium (Singulair) 10 mg HS PO ; Start 10/13/16 at 21:00; Stop at 21:00; Status DC Nifedipine (Procardia Xl) 60 mg TID PO ; Start 10/13/16 at 09:00; Stop 10/13/16 at 09:00; Status DC Pravastatin Sodium (Pravachol) 40 mg DAILY PO ; Start 10/13/16 at 09:00; Stop 10/13/16 at 09:00; Status DC Sodium Chloride 1,000 ml @ 999 mls/hr BOLUS ONCE IV Last administered on t 05:42; Start 10/13/16 at 04:45; Stop 10/13/16 at 05:45; Status DC Sodium Bicarbonate 150 meq/Dextrose 1,150 ml @ 75 mls/hr [id number] IV ; Start 10/13/16 at 08:00; Stop 10/13/16 at 08:00; Status DC Norepinephrine Bitartrate 250 ml @ As Directed STK-MED ONCE IV ; Start 10/13/16 at 07:25; Stop 10/13/16 at 07:26; Status DC Norepinephrine Bitartrate 250 ml @ 7.5 mls/hr TITRATE PRN IV Blood pressure management; Start 10/13/16 at 07:30; Status UNV Terbutaline Sulfate (Brethine Inj) 1 mg UNSCH PRN SQ For Extravasation; Start 10/13/16 at 07:30; Stop 10/28/16 at 11:24; Status DC Sodium Bicarbonate (Sodium Bicarbonate 8.4% Inj) 200 meq ONCE ONCE IV PUSH Last administered on 10/13/16 07:30; Start 10/13/16 at 07:30; Stop 10/13/16 at 07: 35; Status DC Dextrose (D50w (Vial) Inj) 25 ml UNSCH PRN IV PUSH HYPOGLYCEMIA-SEE COMMENTS; Start 10/13/16 at 07:30 Insulin Human Regular (NovoLIN R SUPPLEMENTAL SCALE) 1 Q6HR SQ Last administered on 11/05/16 00:00; Start 10/13/16 at 12:00 Linezolid 300 ml @ 300 mls/hr Q12H IV ; Start 10/13/16 at 08:00; Stop 10/13/16 at 08:07; Status DC Piperacillin Sod/ Tazobactam Sod 50 ml @ 100 mls/hr Q8H IV Last administered on 10/13/16 09:07; Start 10/13/16 at 09:00; Stop 10/13/16 at 14:13; Status DC Norepinephrine Bitartrate 16 mg/ Dextrose 250 ml @ 1.87 mls/hr TITRATE PRN IV Maintain MAP > 65 mmHg; Start 10/13/16 at 08:00; Stop 10/28/16 at 11:24; Status DC Epinephrine HCl 2 mg/Dextrose 252 ml @ 15.12 mls/ hr TITRATE PRN IV Blood Pressure Management; Start 10/13/16 at 08:15; Stop 10/13/16 at 08:47; Status DC Ketamine HCl (Ketalar Inj) 50 mg STAT ONCE IV PUSH ; Start 10/13/16 at 08:15; Stop 10/13/16 at 08:33; Status DC Midazolam HCl (Versed Inj) 2 mg STAT ONCE IV PUSH ; Start 10/13/16 at 08:15; Stop 10/13/16 at 08:31; Status DC Clindamycin Phosphate 900 mg/ Sodium Chloride 106 ml @ 212 mls/hr Q8H IV Last administered on 10/13/16 09:07; Start 10/13/16 at 09:00; Stop 10/13/16 at 13:55; Status DC Epinephrine HCl 8 mg/Dextrose 250 ml @ 5.62 mls/hr TITRATE PRN IV Blood Pressure Management Last administered on 10/13/16 09:07; Start 10/13/16 at 09:00 ; Stop 10/28/16 at 11:24; Status DC Sodium Bicarbonate (Sodium Bicarbonate 8.4% Inj) 200 meq ONCE ONCE IV PUSH Last administered on 10/13/16 11:43; Start 10/13/16 at 11:30; Stop 10/13/16 at 11: 31; Status DC Etomidate (Amidate Inj) 20 mg ONCE ONCE IV PUSH ; Start 10/13/16 at 13:15; Stop 10/13/16 at 14:37; Status DC Midazolam HCl (Versed Inj) 5 mg ONCE ONCE IV PUSH Last administered on 13:15; Start 10/13/16 at 13:15; Stop 10/13/16 at 14:37; Status DC Rocuronium [place] (Zemuron Inj) 100 mg BOLUS ONCE IV Last administered on 10/13 13:15; Start 10/13/16 at 13:15; Stop 10/13/16 at 14:37; Status DC Midazolam HCl (Versed Inj) 5 mg STK-MED ONCE .ROUTE Last administered on 13:20; Start 10/13/16 at 13:20; Stop 10/13/16 at 13:21; Status DC Micafungin Sodium 150 mg/Sodium Chloride 100 ml @ 100 mls/hr Q24H IV Last administered on 10/16/16 16:12; Start 10/13/16 at 17:00; Stop 10/16/16 at 17:40; Status DC Daptomycin 1000 mg/Sodium Chloride 100 ml @ 200 mls/hr Q48H IV Last administered on 10/27/16 16:58; Start 10/13/16 at 16:00; Stop 10/30/16 at 15:59 ; Status DC Cefepime HCl 1000 mg/Sodium Chloride 100 ml @ 200 mls/hr Q24H IV Last administered on 11/10/16 14:46; Start 10/13/16 at 15:00 Metronidazole 100 ml @ 100 mls/hr Q8H IV Last administered on 10/16/16 15:13; Start 10/13/16 at 16:00; Stop 10/16/16 at 17:40; Status DC Propofol 100 ml @ As Directed STK-MED ONCE .ROUTE ; Start 10/13/16 at 15:31; Stop 10/13/16 at 15:32; Status DC Sodium Chloride 1,000 ml @ 0 mls/hr Q0M PRN OTHER For Prime & Rinse Back Last administered on 10/21/16 10:43; Start 10/13/16 at 15:54 Heparin Sodium (Porcine) (Heparin Inj) 8,000 units UNSCH PRN IVF WITH DIALYSIS ; Start 10/13/16 at 16:00 Sodium Chloride 1,000 ml @ 200 mls/hr Q5H PRN IV WITH DIALYSIS Last administered on 11/03/16 17:23; Start 10/13/16 at 15:54 Sodium Chloride 1,000 ml @ 0 mls/hr Q0M PRN OTHER WITH DIALYSIS; Start 10/13/16 at 15:54 Mannitol (Mannitol Inj) 12.5 gm UNSCH PRN IV WITH DIALYSIS; Start 10/13/16 at 16 :00 Albumin Human (Albumin 25% Inj) 25 gm UNSCH PRN IV WITH DIALYSIS Last administered on 10/14/16 08:19; Start 10/13/16 at 16:00 Sodium Chloride (NS Flush) 5 ml UNSCH PRN IV FLUSH WITH DIALYSIS Last administered on 10/21/16 10:42; Start 10/13/16 at 16:00 Heparin Sodium (Porcine) (Heparin Inj) UNSCH PRN .XX WITH DIALYSIS Last administered on 11/03/16 17:23; Start 10/13/16 at 16:00 Gentamicin Sulfate (Gentamicin (Dialysis) Inj) 20 mg UNSCH PRN IV WITH DIALYSIS Last administered on 11/03/16 17:23; Start 10/13/16 at 16:00 Ondansetron HCl (Zofran Inj) 4 mg UNSCH PRN IV WITH DIALYSIS; Start 10/13/16 at 16:00 Acetaminophen (Tylenol) 650 mg UNSCH PRN PO for headach, pain, temp > 101F Last administered on 10/21/16 20:36; Start 10/13/16 at 16:00 Diphenhydramine HCl (Benadryl) 25 mg UNSCH PRN PO for hives/itching/ anaphylaxis Last administered on 10/28/16 06:35; Start 10/13/16 at 16:00; Stop 11/01/16 at 11:23; Status DC Nitroglycerin (Nitrostat Sl) 0.4 mg UNSCH PRN SL CHEST PAIN; Start 10/13/16 at 16:00 Clonidine (Catapres) 0.1 mg UNSCH PRN PO for BP > 180/100 X 2 readings Last administered on 10/29/16 16:52; Start 10/13/16 at 16:00; Stop 10/29/16 at 20:11 ; Status DC Gelatin (Gelfoam 12 Mm/7 Mm Top) 1 foam UNSCH PRN TOP SEE LABEL COMMENTS Last administered on 10/15/16 10:39; Start 10/13/16 at 16:00 Propofol 100 ml @ As Directed STK-MED ONCE .ROUTE ; Start 10/13/16 at 18:39; Stop 10/13/16 at 18:40; Status DC Propofol 100 ml @ 4.128 mls/ hr TITRATE PRN IV SEDATION Last administered on 13:36; Start 10/13/16 at 19:15; Stop 10/28/16 at 11:24; Status DC Famotidine (Pepcid Liq) 20 mg BID NG Last administered on 10/15/16 09:19; Start 10/14/16 at 21:00; Stop 10/15/16 at 10:04; Status DC Silver Nitrate/ Potassium Nitrate (Silver Nitrate Applicators) 1 appl UNSCH X1 ONCE TOPICAL Last administered on 10/15/16 09:19; Start 10/15/16 at 09:00; Stop 10/15/16 at 09:01; Status DC Famotidine (Pepcid Liq) 10 mg BID NG Last administered on 10/21/16 09:00; Start 10/15/16 at 21:00; Stop 10/21/16 at 20:09; Status DC Diphenhydramine HCl (Benadryl) 25 mg BID PO Last administered on 10/17/16 08:55 ; Start 10/15/16 at 21:00; Stop 10/17/16 at 09:01; Status DC Dexamethasone Sodium Phosphate (Decadron Inj) 4 mg Q6HR IV PUSH Last administered on 10/16/16 17:57; Start 10/16/16 at 10:00; Stop 10/16/16 at 18:01; Status DC Hydralazine HCl (Apresoline Inj) 20 mg Q3H PRN IV PUSH SBP > 170 Last administered on 11/11/16 00:48; Start 10/16/16 at 15:45 Labetalol HCl (Trandate Inj) 20 mg Q3H PRN IV PUSH SBP > 160 Last administered on 11/01/16 12:39; Start 10/16/16 at 15:45 Atropine Sulfate (Atropine Inj) 1 mg STK-MED ONCE IV ; Start 10/13/16 at 05:00; Stop 10/17/16 at 11:07; Status DC Sodium Bicarbonate (Sodium Bicarbonate 8.4% Inj) 50 meq STK-MED ONCE IV ; Start 10/13/16 at 05:00; Stop 10/17/16 at 11:08; Status DC Sodium Chloride 250 ml @ 15 mls/hr ONCE ONCE IV ; Start 10/18/16 at 09:30; Stop 10/19/16 at 02:09; Status DC Epinephrine HCl (EPINEPHrine (1:10,000) INJ) 1 mg STK-MED ONCE .ROUTE ; Start at 14:51; Stop 10/18/16 at 14:52; Status DC Alteplase, Recombinant (Activase Bolus) 9 mg ONCE ONCE IV Last administered on 10/18/16 16:00; Start 10/18/16 at 16:00; Stop 10/18/16 at 16:03; Status DC Alteplase, Recombinant 81 mg/ Syringe / Bag 81 ml @ 81 mls/hr ONCE ONCE IV Last administered on 10/18/16 16:01; Start 10/18/16 at 16:00; Stop 10/18/16 at 16: 59; Status DC Sodium Chloride (NS Inj) 30 ml ONCE ONCE IVF Last administered on 10/18/16 16: 00; Start 10/18/16 at 16:00; Stop 10/18/16 at 16:02; Status DC Miscellaneous Information No Heparin, Warfarin, Aspir... UNSCH PRN XX SEE DOSE INSTRUCTIONS; Start 10/18/16 at 16:00; Stop 10/19/16 at 15:59; Status DC Micafungin Sodium 150 mg/Sodium Chloride 100 ml @ 100 mls/hr Q24H IV Last administered on 10/18/16 18:32; Start 10/18/16 at 18:00; Stop 10/19/16 at 14:43; Status DC Chlorhexidine Gluconate (Peridex 0.12% Liq) 15 ml BID@08,20 MT Last administered on 11/10/16 20:00; Start 10/18/16 at 20:00 Dexamethasone Sodium Phosphate (Decadron Inj) 4 mg STAT ONCE IV PUSH Last administered on 10/19/16 11:50; Start 10/19/16 at 11:15; Stop 10/19/16 at 11:16; Status DC Racepinephrine (Racepinephrine 2.25% Neb) 0.5 ml STK-MED ONCE .ROUTE ; Start 10/19/16 at 13:19; Stop 10/19/16 at 13:20; Status DC Diphenhydramine HCl (Benadryl) 25 mg Q6H PRN PO ITCHING Last administered on 11:57; Start 10/21/16 at 15:30; Stop 10/23/16 at 10:29; Status DC Famotidine (Pepcid) 10 mg BID PO Last administered on 11/11/16 09:54; Start at 21:00 Calamine (Calamine Lotion) 1 applic Q6H PRN TOPICAL irritated skin Last administered on 11/03/16 20:36; Start 10/21/16 at 22:30 Thiamine HCl (Vitamin B1) 100 mg DAILY PO Last administered on 11/11/16 09:54 ; Start 10/23/16 at 09:00 Diphenhydramine HCl (Benadryl) 50 mg Q6H PRN PO ITCHING Last administered on 05:33; Start 10/23/16 at 15:30; Stop 11/01/16 at 11:23; Status DC Senna/Docusate Sodium (Maira-Colace) 2 tab ONCE ONCE PO Last administered on 12:11; Start 10/23/16 at 10:30; Stop 10/23/16 at 11:05; Status DC Magnesium Hydroxide (Milk Of Magnsaroj Liq) 30 ml ONCE ONCE PO Last administered on 10/23/16 12:11; Start 10/23/16 at 10:30; Stop 10/23/16 at 11:06 ; Status DC Senna/Docusate Sodium (Maira-Colace) 1 tab BID PO Last administered on 09:54; Start 10/23/16 at 21:00 Lactic Acid (Lac-Hydrin 12% Lotion) 1 applic BID TOPICAL Last administered on 08:43; Start 10/23/16 at 21:00 Cholecalciferol (Vitamin D3) 5,000 units DAILY PO Last administered on 09:54; Start 10/24/16 at 09:00 Cholecalciferol (Vitamin D3) 10,000 units ONCE ONCE PO Last administered on 18:06; Start 10/23/16 at 17:45; Stop 10/23/16 at 17:46; Status DC Senna/Docusate Sodium (Maira-Colace) 1 tab BID PO ; Start 10/24/16 at 21:00; Stop 10/24/16 at 21:00; Status DC Fluconazole (Diflucan) 100 mg Q48H PO Last administered on 10/30/16 18:01; Start 10/24/16 at 17:00; Stop 10/30/16 at 18:24; Status DC Hydralazine HCl (Apresoline) 25 mg Q12HR PO Last administered on 10/28/16 10: 48; Start 10/26/16 at 11:30; Stop 10/28/16 at 13:51; Status DC Diphenhydramine HCl (Benadryl 2% Cream) APPLY TO AFFECTED AREA Q4H PRN TOPICAL ITCHING; Start 10/27/16 at 17:30 Nifedipine (Procardia Xl) 30 mg ONCE ONCE PO Last administered on 10/28/16 18 :37; Start 10/28/16 at 14:30; Stop 10/28/16 at 14:31; Status DC Hydralazine HCl (Apresoline) 25 mg Q8H PO Last administered on 10/31/16 08:25 ; Start 10/28/16 at 16:00; Stop 10/31/16 at 10:30; Status DC Multi-Ingredient Ointment (Eucerin Cream) 1 applic Q6H PRN TOPICAL DRY SKIN Last administered on 11/11/16 00:55; Start 10/29/16 at 12:15 Nifedipine (Procardia Xl) 30 mg DAILY PO Last administered on 11/01/16 09:28; Start 10/29/16 at 12:15; Stop 11/01/16 at 12:00; Status DC Clonidine (Catapres) 0.1 mg Q8H PRN PO for BP > 180/100 X 2 readings Last administered on 11/09/16 05:34; Start 10/29/16 at 20:15 Metoprolol Tartrate (Lopressor) 25 mg DAILY PO Last administered on 11/11/16 09:54; Start 10/30/16 at 10:00 Potassium Chloride (KCl) 30 meq ONCE ONCE PO Last administered on 10/30/16 13 :40; Start 10/30/16 at 11:45; Stop 10/30/16 at 11:46; Status DC Potassium Chloride (KCl) 20 meq ONCE ONCE PO Last administered on 10/30/16 18 :01; Start 10/30/16 at 14:30; Stop 10/30/16 at 14:31; Status DC Hydralazine HCl (Apresoline) 50 mg Q8HR PO Last administered on 11/02/16 05:12 ; Start 10/31/16 at 14:00; Stop 11/02/16 at 10:25; Status DC Hydroxyzine HCl (Atarax) 25 mg Q6H PRN PO ITCHING Last administered on 05:18; Start 11/01/16 at 11:30 Loratadine (Claritin) 10 mg DAILY PO Last administered on 11/11/16 09:54; Start 11/01/16 at 11:30 Nifedipine (Procardia Xl) 60 mg DAILY PO Last administered on 11/04/16 09:07; Start 11/02/16 at 09:00; Stop 11/04/16 at 11:40; Status DC Hydralazine HCl (Apresoline) 75 mg Q8HR PO Last administered on 11/03/16 05:30 ; Start 11/02/16 at 14:00; Stop 11/03/16 at 10:51; Status DC Hydralazine HCl (Apresoline) 100 mg Q8HR PO Last administered on 11/11/16 05: 17; Start 11/03/16 at 14:00 Nifedipine (Procardia Xl) 30 mg ONCE ONCE PO Last administered on 11/04/16 12 :04; Start 11/04/16 at 11:45; Stop 11/04/16 at 11:51; Status DC Nifedipine (Procardia Xl) 90 mg DAILY PO Last administered on 11/05/16 10:02; Start 11/05/16 at 09:00; Stop 11/05/16 at 10:46; Status DC Nifedipine (Procardia Xl) 30 mg ONCE ONCE PO Last administered on 11/05/16 18 :41; Start 11/05/16 at 18:00; Stop 11/05/16 at 18:01; Status DC Nifedipine (Procardia Xl) 60 mg Q12HR PO Last administered on 11/11/16 09:54; Start 11/06/16 at 09:00 Potassium Chloride (KCl) 30 meq ONCE ONCE PO Last administered on 11/07/16 09 :55; Start 11/07/16 at 09:30; Stop 11/07/16 at 09:31; Status DC Heparin Sodium (Porcine) (Heparin Inj) 5,000 units Q12HR SQ Last administered on 11/11/16 09:54; Start 11/07/16 at 21:00 Clonidine (Catapres) 0.1 mg Q12HR PO Last administered on 11/09/16 08:35; Start 11/08/16 at 21:00; Stop 11/09/16 at 10:34; Status DC Potassium Chloride (KCl) 20 meq ONCE ONCE PO Last administered on 11/08/16 12 :29; Start 11/08/16 at 11:00; Stop 11/08/16 at 11:01; Status DC Dorzolamide HCl (Trusopt 2% Opt Soln) 1 drop BID EACH EYE Last administered on 11/11/16 09:55; Start 11/08/16 at 21:00 Fluorometholone (Fml Liquifilm Opth Susp) 1 drop BID EACH EYE Last administered on 11/11/16 09:55; Start 11/08/16 at 21:00 Clonidine (Catapres) 0.1 mg Q8HR PO Last administered on 11/11/16t 05:18; Start 11/09/16 at 14:00 A/P Assessment and Plan A/P 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 Patient was administered IV thrombolysis following evaluation by neurology Dr. Burton . Subsequently MRI/MRA brain unremarkable. - Urine tox screen came back positive for benzodiazepines placing concern for surreptitious benzodiazepine use as she does not have any benzodiazepine listed on her MAR. non-sustained V-tach- with no recurrence started on lopressor- echo with EF 60%. continue to monitor. Obesity Hypoventilation Syndrome COPD Sleep Apnea Acute hypoxic and hypercarbic respiratory failure- resolved. Pulmonary Edema - intubated and then extubated 10/16. -Emergently intubated on 10/18 for airway protection due to altered mental status. Extubated on 10/19- now stable. Septic Shock- resolved. pseudomonas bacteremia Severe Tricuspid Regurgitation IV antibiotics per ID recommendations; on Cefepime. Acute kidney injury requiring renal replacement therapy hypokalemia - nephrology following - HD on hold for now per nephrology; awaiting renal recovery ( previously d/w ). -monitor the renal function closely. -- Strict IOs Chronic anemia- likely secondary to chronic disease H/H fairly stable. monitor H/H and transfuse to keep Hb > 7- as needed. LLE osteomyelitis Pseudomonas bacteremia Gram Positive Bacteremia Pseudomonas osteomyelitis Fungal Urinary Tract Infection - ID following. - continue antibiotics per ID. Diabetes -Vitamin D deficiency. -- started on cholecalciferol. -- continue accu-check with sliding scale. hypertension-uncontrolled continue Procardia XL , metoprolol and hydralazine and clonidine. continue to monitor and adjust the regimen as needed. DVT Prophylaxis -- subq Heparin Discharge Planning when cleared by ID and nephrology. Roseanna Murphy MD Nov 11, 2016 12:51
[2016-11-11] MEDS: CEFEPIME INJ 1,000 MG in SODIUM CHLORIDE 0.9% INJ 100 ML IV SCH (16:05)
--- NOTE | 2016-11-11 18:20 | HHI.NPPN ---
Subjective General Problems: Anemia Renal Failure: Acute Additional Remarks No actue complaints. Review of Systems General Constitutional: Fatigue Eyes Eyes: Itching Ears, Nose, & Throat ENT Remarks loss of appetite Cardiovascular Cardiac: Edema Endocrine Endocrine: Thirst Skin Skin: Skin Rash, Ulcers Skin Remarks generalized rash with peeling skin; ulcer planter surface left foot Objective Data Data 11/11/16 11/12/16 19:00 07:00 Intake Total 480 ml Balance 480 ml Intake Oral 480 ml Vital Signs Date Time Temp Pulse Resp B/P (MAP) Pulse Ox O2 Delivery O2 Flow Rate FiO2 11/11/16 16:00 97.8 79 19 174/84 (114) 98 11/11/16 12:00 98.0 79 16 175/89 (117) 97 11/11/16 11:42 87 11/11/16 09:51 Room Air 11/11/16 08:00 98.1 89 16 165/98 (120) 98 11/11/16 04:09 Room Air 11/11/16 04:00 98.2 88 20 165/75 (105) 96 11/11/16 01:29 152/72 (98) 11/11/16 00:00 Room Air 11/11/16 00:00 98.2 102 20 171/77 (108) 95 11/10/16 20:26 85 11/10/16 20:00 Room Air 11/10/16 20:00 98.1 82 19 154/75 (101) 100 -: 11/10/16 0705 11/10/16 0705 Physical Exam General Appearance: No Acute Distress, Comfortable, Obese Eyes Eye Exam: Pupils Equal, Pupils Reactive Throat Throat Exam: Oral Mucosa [place] & Moist Neck Neck Exam: Neck Supple Pulmonary Resp Exam: Clear Bilaterally, Breath Sounds Equal, No Distress, Decreased Bases Cardiology CV Exam: Regular, Normal Sinus Rhythm, Good Perfusion Gastrointestinal/Abdomen GI Exam: Soft, Non-Tender, Bowel Sounds Present Musculoskeletal MS Exam: Joints Intact, Normal Tone, Unable to Ambulate Integumentary Skin Exam: Warm, Dry, Intact Extremeties Extremities Exam: Pedal Pulses Palpable, Moderate Edema, Pitting Edema Neurologic Neuro Exam: Alert, Awake, Oriented, Speech Clear, Moving All Extremities Psychiatric Psych Exam: Appropriate Responses Assessment/Plan Discussed Condition With: Patient Assessment Summary: FREDI/Acute Renal Failure Problem List: (1) Acute renal failure ICD Codes: N17.9 - Acute kidney failure, unspecified Status: Acute Plan: She apparently has a baseline creatinine of 1mg/dL FREDI 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 HD initiated on 10/13/16, last HD 11/03. She is in renal recovery. Creatinine stable at 4.4 yesterday. Check AM labs. urine output has improved, voiding now. No further indication for dialysis Avoid nephrotoxic agents. Avoid IVF. (2) Sepsis ICD Codes: A41.9 - Sepsis, unspecified organism Plan: + Pseudomonas in the blood, and gram stain of the wound. Currently on Cefepime (x 6 weeks) Midline placement okay Continue renal dosing meds, abx. (3) Metabolic acidosis ICD Codes: E87.2 - Acidosis Status: Acute Plan: Corrected, monitor (4) Anemia ICD Codes: D64.9 - Anemia Status: Acute Plan: Hb improved, monitor (5) Vitamin D deficiency ICD Codes: E55.9 - Vitamin D deficiency, unspecified Plan: replacement ordered (6) Itching ICD Codes: L29.9 - Pruritus, unspecified Plan: on Benadryl cream also Vistaril PRN with daily Claritin Plan Problem Qualifiers (1) Acute renal failure: Qualified Codes: N17.9 - Acute kidney failure, unspecified (2) Anemia: Qualified Codes: D64.9 - Anemia, unspecified Nicolas Charles MD Nov 11, 2016 18:20
[2016-11-12] VITALS (7 sets, daily range): BP systolic 155–175; BP diastolic 66–82; PULSE 74–90; RESP 18–22; TEMP 97.3–98; O2SAT 98–100
[2016-11-12] MEDS: INSULIN NovoLIN REGULAR SUPPLEMENTAL SCALE SQ SCH ×5 (06:00→23:58)
[2016-11-12] MEDS: hydrALAZINE HCL 100 MG TAB PO SCH ×3 (06:52→21:41)
[2016-11-12] MEDS: LACTOBACILLUS ACIDOPHILUS TAB PO SCH ×3 (06:52→17:17)
[2016-11-12] MEDS: cloNIDine HCL 0.1 MG TAB PO SCH ×3 (06:52→21:41)
[2016-11-12] MEDS: CHLORHEXIDINE 0.12% (ORAL KIT) 15 ML CUP MT SCH ×2 (07:24→20:00)
[2016-11-12] MEDS: DORZOLAMIDE 2% OPTH SOLN 200 DROP/10 ML BTLO EACH EYE SCH ×2 (08:38→21:45)
[2016-11-12] MEDS: FLUOROMETHOLONE 0.1% OPHT SUSP 5 ML BTL EACH EYE SCH ×2 (08:38→21:45)
[2016-11-12] MEDS: THIAMINE HCL 100 MG TAB PO SCH (08:39)
[2016-11-12] MEDS: METOPROLOL TARTRATE 25 MG TAB PO SCH (08:39)
[2016-11-12] MEDS: hydrOXYzine HCL 25 MG TAB PO PRN ×2 (08:39→21:41)
[2016-11-12] MEDS: DOCUSATE SODIUM 50 MG/SENNA 8.6 MG TAB PO SCH ×2 (08:39→21:00)
[2016-11-12] MEDS: LACTIC ACID (AMMONIUM LACTATE) 12% LOTION 225 GM BTL TOPICAL SCH ×2 (08:39→21:00)
[2016-11-12] MEDS: FAMOTIDINE 20 MG TAB PO SCH ×2 (08:39→21:41)
[2016-11-12] MEDS: HEPARIN SODIUM - SQ 10,000 UNITS/ML VIAL SQ SCH ×2 (08:39→21:41)
[2016-11-12] MEDS: LORATADINE 10 MG TAB PO SCH (08:39)
[2016-11-12] MEDS: NIFEdipine 60 MG SUSTAINED RELEASE TAB PO SCH ×2 (08:39→21:41)
[2016-11-12] MEDS: CHOLECALCIFEROL (VIT D3) 5000 UNIT CAP PO SCH (08:39)
[2016-11-12] MEDS: SODIUM CHLORIDE 0.9% FLUSH 10 ML FLUSH IV FLUSH SCH ×2 (08:40→21:41)
[2016-11-12 09:38] LABS: AUTOMATED NEUTROPHIL # 3.7 TH/MM3 (1.8-7.7); BASOPHIL # 0.1 TH/MM3 (0-0.2); BASOPHIL % 1.4 % (0.0-2.0); EOSINOPHIL # 0.4 TH/MM3 (0-0.4); EOSINOPHIL % 6.4 % (0.0-4.0); HEMO FLAGS DIFF FINAL; LYMPH % 20.2 % (9.0-44.0); LYMPHOCYTE # 1.2 TH/MM3 (1.0-4.8); MEAN CELL VOLUME 91.2 FL (80.0-100.0); MEAN CORPUSCULAR HEMOGLOBIN 30.4 PG (27.0-34.0); MEAN CORPUSCULAR HGB CONC 33.3 % (32.0-36.0); PLATELET COUNT 252 TH/MM3 (150-450); RED BLOOD COUNT 2.96 MIL/MM3 (4.00-5.30)
[2016-11-12 09:54] LABS: ANION GAP 14 MEQ/L (5-15); AST (GOT) 13 U/L (15-37); BICARBONATE 20.9 MEQ/L (21.0-32.0); BLOOD UREA NITROGEN 39 MG/DL (7-18); CHLORIDE 106 MEQ/L (98-107); GLOMERULAR FILTRATION RATE 10 ML/MIN (>89); MAGNESIUM 1.7 MG/DL (1.5-2.5); POTASSIUM 3.4 MEQ/L (3.5-5.1); SODIUM (NA) 141 MEQ/L (136-145)
[2016-11-12 09:56] LABS: ALT (GPT) 9 U/L (10-53)
[2016-11-12 09:58] LABS: ALKALINE PHOSPHATASE 172 U/L (45-117); TOTAL BILIRUBIN ADULT 0.5 MG/DL (0.2-1.0)
[2016-11-12] MEDS: EUCERIN CREAM 120 GM JAR TOPICAL PRN (12:55)
--- NOTE | 2016-11-12 14:19 | HHI.NPPN ---
Subjective General Problems: Anemia Renal Failure: Acute Additional Remarks No actue complaints. Review of Systems General Constitutional: Fatigue Eyes Eyes: Itching Ears, Nose, & Throat ENT Remarks loss of appetite Cardiovascular Cardiac: Edema Endocrine Endocrine: Thirst Skin Skin: Skin Rash, Ulcers Skin Remarks generalized rash with peeling skin; ulcer planter surface left foot Objective Data Data 11/12/16 11/13/16 19:00 07:00 Output Total 250 ml Balance -250 ml Output Urine Total 250 ml Vital Signs Date Time Temp Pulse Resp B/P (MAP) Pulse Ox O2 Delivery O2 Flow Rate FiO2 11/12/16 08:35 Room Air 11/12/16 08:02 97.8 89 18 172/66 (101) 100 11/12/16 06:16 Room Air 11/12/16 04:00 97.8 74 20 160/74 (102) 99 11/12/16 00:00 97.7 90 20 155/72 (99) 100 11/12/16 00:00 Room Air 11/11/16 20:29 86 11/11/16 20:00 Room Air 11/11/16 20:00 97.6 87 20 161/77 (105) 97 11/11/16 16:00 97.8 79 19 174/84 (114) 98 -: 11/12/16 0830 11/12/16 0830 Physical Exam General Appearance: No Acute Distress, Comfortable, Obese Eyes Eye Exam: Pupils Equal, Pupils Reactive Throat Throat Exam: Oral Mucosa [place] & Moist Neck Neck Exam: Neck Supple Pulmonary Resp Exam: Clear Bilaterally, Breath Sounds Equal, No Distress, Decreased Bases Cardiology CV Exam: Regular, Normal Sinus Rhythm, Good Perfusion Gastrointestinal/Abdomen GI Exam: Soft, Non-Tender, Bowel Sounds Present Musculoskeletal MS Exam: Joints Intact, Normal Tone, Unable to Ambulate Integumentary Skin Exam: Warm, Dry, Intact Extremeties Extremities Exam: Pedal Pulses Palpable, Moderate Edema, Pitting Edema Neurologic Neuro Exam: Alert, Awake, Oriented, Speech Clear, Moving All Extremities Psychiatric Psych Exam: Appropriate Responses Assessment/Plan Discussed Condition With: Patient Assessment Summary: FREDI/Acute Renal Failure Problem List: (1) Acute renal failure ICD Codes: N17.9 - Acute kidney failure, unspecified Status: Acute Plan: She apparently has a baseline creatinine of 1mg/dL FREDI 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 HD initiated on 10/13/16, last HD 11/03. She is in renal recovery. Creatinine 4.4->4.6, stable. urine output has improved, voiding now. No further indication for dialysis Avoid nephrotoxic agents. Avoid IVF. Continue to encourage PO intake. (2) Sepsis ICD Codes: A41.9 - Sepsis, unspecified organism Plan: + Pseudomonas in the blood, and gram stain of the wound. Currently on Cefepime (x 6 weeks) Midline placement okay Continue renal dosing meds, abx. (3) Metabolic acidosis ICD Codes: E87.2 - Acidosis Status: Acute Plan: Corrected, monitor (4) Anemia ICD Codes: D64.9 - Anemia Status: Acute Plan: Hb improved, monitor (5) Vitamin D deficiency ICD Codes: E55.9 - Vitamin D deficiency, unspecified Plan: replacement ordered (6) Itching ICD Codes: L29.9 - Pruritus, unspecified Plan: on Benadryl cream also Vistaril PRN with daily Claritin Plan Problem Qualifiers (1) Acute renal failure: Qualified Codes: N17.9 - Acute kidney failure, unspecified (2) Anemia: Qualified Codes: D64.9 - Anemia, unspecified Nicolas Charles MD Nov 12, 2016 14:19
[2016-11-12] MEDS ORDERED: POTASSIUM CHLORIDE 25 MEQ EFFERVESCENT TAB PO ONE (14:30)
[2016-11-12] MEDS: CEFEPIME INJ 1,000 MG in SODIUM CHLORIDE 0.9% INJ 100 ML IV SCH (14:33)
--- NOTE | 2016-11-12 14:41 | HHI.PR ---
Subjective Remarks Follow up for pseudomonas bacteremia, acute kidney injury. Patient is currently doing well. No acute concerns. She reports good urine output. Objective Vitals Vital Signs Date Time Temp Pulse Resp B/P (MAP) Pulse Ox O2 Delivery O2 Flow Rate FiO2 11/12/16 12:02 97.8 81 18 175/82 (113) 98 11/12/16 08:35 Room Air 11/12/16 08:02 97.8 89 18 172/66 (101) 100 11/12/16 06:16 Room Air 11/12/16 04:00 97.8 74 20 160/74 (102) 99 11/12/16 00:00 97.7 90 20 155/72 (99) 100 11/12/16 00:00 Room Air 11/11/16 20:29 86 11/11/16 20:00 Room Air 11/11/16 20:00 97.6 87 20 161/77 (105) 97 11/11/16 16:00 97.8 79 19 174/84 (114) 98 I/O 11/11/16 11/11/16 11/11/16 11/12/16 11/12/16 11/12/16 07:00 15:00 23:00 07:00 15:00 23:00 Intake Total 650 ml Output Total 250 ml Balance 650 ml -250 ml Intake Oral 650 ml Output Urine Total 250 ml # Voids 1 # Bowel Movements 2 Result Diagram: 11/12/1630 11/12/16 0830 Imaging Last Impressions Liver Ultrasound 10/23/16 0000 Signed Impressions: Service Date/Time: Sunday, October 23, 2016 09:45 - CONCLUSION: 1. Gallbladder sludge 2. No evidence of biliary duct dilatation 3. Otherwise unremarkable exam. Jaiden Weston MD Head CT 10/19/16 1700 Signed Impressions: Service Date/Time: October 17:01 - CONCLUSION: No acute intracranial findings Ricco Kulkarni MD Head Magnetic Resonance Angiography 10/18/16 0000 Signed Impressions: Service Date/Time: Tuesday, October 18, 2016 16:23 - CONCLUSION: Normal examination. Ricco Kulkarni MD Chest X-Ray 10/18/16 0000 Signed Impressions: Service Date/Time: Tuesday, October 18, 2016 14:59 - CONCLUSION: 1. Mild to moderate pulmonary vascular congestion. 2. Cardiomegaly. 3. Elevation of the right hemidiaphragm. 4. Endotracheal tube in good position 3 cm above the elsie. 5. Left internal jugular VasCath and left subclavian central line are stable in positions. Raymond Smith MD Brain MRI 10/18/16 Signed Impressions: Service Date/Time: Tuesday, October 18, 2016 16:11 - CONCLUSION: Nonspecific white matter signal change in the left frontal region. No evidence of acute stroke. Ricco Kulkarni MD Ankle X-Ray 10/14/16 Signed Impressions: Service Date/Time: Friday, October 14, 2016 17:01 - CONCLUSION: Marked soft tissue swelling with subcutaneous calcifications. Negative for fracture. Roman Mnotiel MD FACR Upper Extremity Ultrasound 10/13/16 Signed Impressions: Service Date/Time: Thursday, October 13, 2016 09:17 - CONCLUSION: 1. No DVT. 2. Subcutaneous edema observed. Wilner Potter Jr., MD Lower Extremity Ultrasound 10/13/16 Signed Impressions: Service Date/Time: Thursday, October 13, 2016 08:57 - CONCLUSION: 1. Study has some limitations as detailed above. No DVT observed. Wilner Potter Jr., MD Lower Extremity CT 10/13/16 Signed Impressions: Service Date/Time: Thursday, October 13, 2016 21:35 - CONCLUSION: Ulcer at the region of the base of the fifth metatarsal. There appears to be chronic and acute changes in this region. The acute changes are worrisome for osteomyelitis at the base of the fifth metatarsal. Ricco Fuentes MD Chest CT 10/13/16 Signed Impressions: Service Date/Time: Thursday, October 13, 2016 21:27 - CONCLUSION: 1. Patchy areas of consolidation seen bilaterally being worse on the right. These could represent areas of inflammatory/infectious disease. Focal round lesions to suggest septic emboli are not clearly identified. 2. Edema seen at the right superficial chest and abdomen regions. The cause of for this asymmetric edema is not known. 3. Mild ascites. Ricco Fuentes MD Abdomen CT 10/13/16 Signed Impressions: Service Date/Time: Thursday, October 13, 2016 21:27 - CONCLUSION: 1. Mild ascites seen around the liver. 2. Superficial edema seen bilaterally in the subcutaneous tissues. This is asymmetric and being much more prominent on the right. 3. Small area of increased density seen independently in the gallbladder representing either small gallstones or milk of calcium. Ricco Fuentes MD Renal Ultrasound 10/12/16 0000 Signed Impressions: Service Date/Time: September 20:54 - CONCLUSION: Normal appearance of the kidneys. Ricco Fuentes MD Objective Remarks GENERAL: Alert, NAD. Morbidly obese. SKIN: Warm and dry. HEAD: Normocephalic. EYES: No scleral icterus. No injection or drainage. NECK: Supple, trachea midline. No JVD or lymphadenopathy. CARDIOVASCULAR: Regular rate and rhythm without murmurs, gallops, or rubs. RESPIRATORY: Breath sounds equal bilaterally. No accessory muscle use. GASTROINTESTINAL: Abdomen soft, non-tender, nondistended. MUSCULOSKELETAL: No cyanosis, or edema. BACK: Nontender without obvious deformity. No CVA tenderness. Procedures Intubation. 10/13/2016 [place] The left ventricular systolic function is normal with an estimated ejection fraction in the range of 60-65%. The right ventricular systoilc function is moderately decreased. There is severe tricuspid regurgitation. There is estimated [id number] pulmonary hypertension present (range 60- 70 mmHg). Appears to be a prominent papillary muscle in the short axis view, does not appear to be a vegetation as it has no extra-cardiac motion (also noted in the long axis). A/P Problem List: (1) Acute renal failure ICD Code: N17.9 - Acute kidney failure, unspecified Status: Acute (2) Hyperkalemia ICD Code: E87.5 - Hyperkalemia Status: Acute (3) HTN (hypertension) ICD Code: I10 - Hypertension Status: Chronic (4) Diabetes mellitus type 2, uncontrolled ICD Code: E11.65 - Uncontrolled type 2 diabetes mellitus Status: Chronic Assessment and Plan This is a 51yF from a SNF who was being treated for chronic LLE cellulitis with approximately 6 months of vancomycin through an indwelling right arm PICC line, who presents with worsening creatinine found at her SNF and altered mental status. On arrival to the ED, she had a Cr 7.7, has a chronic indwelling black catheter and has not had any urine per report in the last few days. Renal ultrasound was negative for hydronephrosis. She also has a excoriating rash over her trunk and arms. She was initially admitted to the floor, but rapid responsed for hypotension and altered mental status. Patient was intubated and required pressors. She was extubated. However, she became unresponsive again on 10/18/2016 and a stroke alert was called. After CT head showed no acute bleed, patient underwent MRI studies and neurologist recommended tPA administration. Patient was extubated on 10/19/2016. Detail ICU course is outlined in the last ICU note on 10/20/2016. - Stroke alert 10/18/2016 - Suspected use of benzodiazepine - metabolic encephalopathy due to sepsis, uremia - Patient received tPA on 10/18/2016 per neurology recommendations. - MRI studies negative for stroke. - Currently, patient is at her baseline. - Acute respiratory failure - hypoxic, hypercarbic. - Obesity hypoventilation syndrome. - Intubated twice in the ICU. Currently on nasal cannula. - Acute kidney injury - Patient required hemodialysis. Currently off dialysis. - Per nephrology, no indication for dialysis at this point. - Creatinine 4.3 --> 4.6. - Acute osteomyelitis of the left lower ext - Pseudomonas bacteremia - Probable PICC line infection - Currently Cefepime 1g Q24hrs. - Hypertension - Continue Clonidine 0.1mg Q8hrs, Hydralazine 100mg Q8hrs, Nifedipine 60mg Q12hrs. Full code. Heparin SQ. Problem Qualifiers (1) Acute renal failure: Qualified Codes: N17.9 - Acute kidney failure, unspecified Kassie Alcantar DO Nov 12, 2016 14:41
[2016-11-12] MEDS: hydrALAZINE HCL 20 MG/ML VIAL IV PUSH PRN (17:18)
[2016-11-13] VITALS (8 sets, daily range): BP systolic 131–195; BP diastolic 63–97; PULSE 82–89; RESP 18–21; TEMP 97.6–98.4; O2SAT 94–100
[2016-11-13] MEDS: cloNIDine HCL 0.1 MG TAB PO SCH ×3 (05:47→20:44)
[2016-11-13] MEDS: hydrALAZINE HCL 100 MG TAB PO SCH ×3 (05:48→20:42)
[2016-11-13] MEDS: INSULIN NovoLIN REGULAR SUPPLEMENTAL SCALE SQ SCH ×4 (05:48→23:26)
[2016-11-13] MEDS: CHLORHEXIDINE 0.12% (ORAL KIT) 15 ML CUP MT SCH ×2 (08:00→20:00)
[2016-11-13] MEDS: LACTOBACILLUS ACIDOPHILUS TAB PO SCH ×3 (08:45→17:26)
[2016-11-13] MEDS: THIAMINE HCL 100 MG TAB PO SCH (08:46)
[2016-11-13] MEDS: METOPROLOL TARTRATE 25 MG TAB PO SCH (08:46)
[2016-11-13] MEDS: NIFEdipine 60 MG SUSTAINED RELEASE TAB PO SCH ×2 (08:46→20:42)
[2016-11-13] MEDS: FAMOTIDINE 20 MG TAB PO SCH ×2 (08:46→20:43)
[2016-11-13] MEDS: LORATADINE 10 MG TAB PO SCH (08:46)
[2016-11-13] MEDS: DOCUSATE SODIUM 50 MG/SENNA 8.6 MG TAB PO SCH ×2 (08:47→20:42)
[2016-11-13] MEDS: HEPARIN SODIUM - SQ 10,000 UNITS/ML VIAL SQ SCH ×2 (08:47→20:44)
[2016-11-13] MEDS: CHOLECALCIFEROL (VIT D3) 5000 UNIT CAP PO SCH (08:47)
[2016-11-13] MEDS: FLUOROMETHOLONE 0.1% OPHT SUSP 5 ML BTL EACH EYE SCH ×2 (08:48→20:44)
[2016-11-13] MEDS: DORZOLAMIDE 2% OPTH SOLN 200 DROP/10 ML BTLO EACH EYE SCH ×2 (08:48→20:44)
[2016-11-13] MEDS: SODIUM CHLORIDE 0.9% FLUSH 10 ML FLUSH IV FLUSH SCH ×2 (08:48→20:44)
[2016-11-13] MEDS: LACTIC ACID (AMMONIUM LACTATE) 12% LOTION 225 GM BTL TOPICAL SCH ×2 (08:51→20:44)
[2016-11-13] MEDS: EUCERIN CREAM 120 GM JAR TOPICAL PRN (08:53)
--- NOTE | 2016-11-13 11:06 | HHI.PR ---
Subjective Remarks Follow up for pseudomonas bacteremia, acute kidney injury. Patient is currently doing well. Denies any chest pain, shortness of breath, fever or chills. She is making urine. Objective Vitals Vital Signs Date Time Temp Pulse Resp B/P (MAP) Pulse Ox O2 Delivery O2 Flow Rate FiO2 11/13/16 08:00 97.8 89 18 177/81 (113) 98 11/13/16 04:00 97.8 87 21 131/63 (85) 95 11/13/16 00:00 98.4 82 19 176/82 (113) 94 11/12/16 21:45 Room Air 11/12/16 20:00 82 11/12/16 20:00 98.0 89 22 162/80 (107) 98 11/12/16 18:50 88 11/12/16 16:02 97.3 80 18 165/80 (108) 98 11/12/16 12:02 97.8 81 18 175/82 (113) 98 I/O 11/12/16 11/12/16 11/12/16 11/13/16 11/13/16 11/13/16 07:00 15:00 23:00 07:00 15:00 23:00 Intake Total 320 ml 480 ml Output Total 250 ml 300 ml Balance -250 ml 320 ml 180 ml Intake Oral 320 ml 480 ml Output Urine Total 250 ml 300 ml # Voids 2 # Bowel Movements 2 0 Result Diagram: 11/12/16 0830 11/12/16 0830 Imaging Last Impressions Liver Ultrasound 10/23/16 0000 Signed Impressions: Service Date/Time: Sunday, October 23, 2016 09:45 - CONCLUSION: 1. Gallbladder sludge 2. No evidence of biliary duct dilatation 3. Otherwise unremarkable exam. Jaiden Weston MD Head CT 10/19/16 1700 Signed Impressions: Service Date/Time: October 17:01 - CONCLUSION: No acute intracranial findings Ricco Kulkarni MD Head Magnetic Resonance Angiography 10/18/16 0000 Signed Impressions: Service Date/Time: Tuesday, October 18, 2016 16:23 - CONCLUSION: Normal examination. Ricco Kulkarni MD Chest X-Ray 10/18/16 0000 Signed Impressions: Service Date/Time: Tuesday, October 18, 2016 14:59 - CONCLUSION: 1. Mild to moderate pulmonary vascular congestion. 2. Cardiomegaly. 3. Elevation of the right hemidiaphragm. 4. Endotracheal tube in good position 3 cm above the elsie. 5. Left internal jugular VasCath and left subclavian central line are stable in positions. Raymond Smith MD Brain MRI 10/18/16 Signed Impressions: Service Date/Time: Tuesday, October 18, 2016 16:11 - CONCLUSION: Nonspecific white matter signal change in the left frontal region. No evidence of acute stroke. Ricco Kulkarni MD Ankle X-Ray 10/14/16 Signed Impressions: Service Date/Time: Friday, October 14, 2016 17:01 - CONCLUSION: Marked soft tissue swelling with subcutaneous calcifications. Negative for fracture. Roman Montiel MD FACR Upper Extremity Ultrasound 10/13/16 Signed Impressions: Service Date/Time: Thursday, October 13, 2016 09:17 - CONCLUSION: 1. No DVT. 2. Subcutaneous edema observed. Wilner Potter Jr., MD Lower Extremity Ultrasound 10/13/16 Signed Impressions: Service Date/Time: Thursday, October 13, 2016 08:57 - CONCLUSION: 1. Study has some limitations as detailed above. No DVT observed. Wilner Potter Jr., MD Lower Extremity CT 10/13/16 Signed Impressions: Service Date/Time: Thursday, October 13, 2016 21:35 - CONCLUSION: Ulcer at the region of the base of the fifth metatarsal. There appears to be chronic and acute changes in this region. The acute changes are worrisome for osteomyelitis at the base of the fifth metatarsal. Ricco Fuentes MD Chest CT 10/13/16 Signed Impressions: Service Date/Time: Thursday, October 13, 2016 21:27 - CONCLUSION: 1. Patchy areas of consolidation seen bilaterally being worse on the right. These could represent areas of inflammatory/infectious disease. Focal round lesions to suggest septic emboli are not clearly identified. 2. Edema seen at the right superficial chest and abdomen regions. The cause of for this asymmetric edema is not known. 3. Mild ascites. Ricco Fuentes MD Abdomen CT 10/13/16 Signed Impressions: Service Date/Time: Thursday, October 13, 2016 21:27 - CONCLUSION: 1. Mild ascites seen around the liver. 2. Superficial edema seen bilaterally in the subcutaneous tissues. This is asymmetric and being much more prominent on the right. 3. Small area of increased density seen independently in the gallbladder representing either small gallstones or milk of calcium. Ricco Fuentes MD Renal Ultrasound 10/12/16 0000 Signed Impressions: Service Date/Time: September 20:54 - CONCLUSION: Normal appearance of the kidneys. Ricco Fuentes MD Objective Remarks GENERAL: Alert, NAD. Morbidly obese. SKIN: Warm and dry. HEAD: Normocephalic. EYES: No scleral icterus. No injection or drainage. NECK: Supple, trachea midline. No JVD or lymphadenopathy. CARDIOVASCULAR: Regular rate and rhythm without murmurs, gallops, or rubs. RESPIRATORY: Breath sounds equal bilaterally. No accessory muscle use. GASTROINTESTINAL: Abdomen soft, non-tender, nondistended. MUSCULOSKELETAL: No cyanosis, or edema. BACK: Nontender without obvious deformity. No CVA tenderness. Procedures Intubation. 10/13/2016 [place] The left ventricular systolic function is normal with an estimated ejection fraction in the range of 60-65%. The right ventricular systoilc function is moderately decreased. There is severe tricuspid regurgitation. There is estimated [id number]-xw-[id number] pulmonary hypertension present (range 60- 70 mmHg). Appears to be a prominent papillary muscle in the short axis view, does not appear to be a vegetation as it has no extra-cardiac motion (also noted in the long axis). A/P Problem List: (1) Acute renal failure ICD Code: N17.9 - Acute kidney failure, unspecified Status: Acute (2) Hyperkalemia ICD Code: E87.5 - Hyperkalemia Status: Acute (3) HTN (hypertension) ICD Code: I10 - Hypertension Status: Chronic (4) Diabetes mellitus type 2, uncontrolled ICD Code: E11.65 - Uncontrolled type 2 diabetes mellitus Status: Chronic Assessment and Plan This is a 51yF from a SNF who was being treated for chronic LLE cellulitis with approximately 6 months of vancomycin through an indwelling right arm PICC line, who presents with worsening creatinine found at her SNF and altered mental status. On arrival to the ED, she had a Cr 7.7, has a chronic indwelling black catheter and has not had any urine per report in the last few days. Renal ultrasound was negative for hydronephrosis. She also has a excoriating rash over her trunk and arms. She was initially admitted to the floor, but rapid responsed for hypotension and altered mental status. Patient was intubated and required pressors. She was extubated. However, she became unresponsive again on 10/18/2016 and a stroke alert was called. After CT head showed no acute bleed, patient underwent MRI studies and neurologist recommended tPA administration. Patient was extubated on 10/19/2016. Detail ICU course is outlined in the last ICU note on 10/20/2016. - Stroke alert 10/18/2016 - Suspected use of benzodiazepine - metabolic encephalopathy due to sepsis, uremia - Patient received tPA on 10/18/2016 per neurology recommendations. - MRI studies negative for stroke. - Currently, patient is at her baseline. - Acute respiratory failure - hypoxic, hypercarbic. - Obesity hypoventilation syndrome. - Intubated twice in the ICU. Currently on nasal cannula. - Acute kidney injury - Patient required hemodialysis. Currently off dialysis. - Per nephrology, no indication for dialysis at this point. - Creatinine 4.3 --> 4.63 --> 4.43. - Per nephrology, if creatinine is improved patient can be discharged. Creatinine improved from 4.63 to 4.43 - Acute osteomyelitis of the left lower ext - Pseudomonas bacteremia - Probable PICC line infection - Currently Cefepime 1g Q24hrs. - We'll request infectious disease to provide final recommendation for post- hospitalization IV antibiotics. - Hypertension - Continue Clonidine 0.1mg Q8hrs, Hydralazine 100mg Q8hrs, Nifedipine 60mg Q12hrs. Full code. Heparin SQ. Discussed with case management. Patient will need dyspnea with authorization. Likely discharge tomorrow. Discussed with infectious disease, nephrology. Problem Qualifiers (1) Acute renal failure: Qualified Codes: N17.9 - Acute kidney failure, unspecified Kassie Alcantar DO Nov 13, 2016 11:06 am
--- NOTE | 2016-11-13 11:31 | HHI.NPPN ---
Subjective General Problems: Anemia Renal Failure: Acute Interval History She is sleeping, not in distress. Labs from today are not available. (Lizy Pineda) Review of Systems General Constitutional: Fatigue (Lizy Pineda) Eyes Eyes: Itching (Lizy Pineda) Ears, Nose, & Throat ENT Remarks loss of appetite (Lizy Pineda) Cardiovascular Cardiac: Edema (Lizy Pineda) Endocrine Endocrine: Thirst (Lizy Pineda) Skin Skin: Skin Rash, Ulcers Skin Remarks generalized rash with peeling skin; ulcer planter surface left foot (Lizy Pineda) Objective Data Data Vital Signs Date Time Temp Pulse Resp B/P (MAP) Pulse Ox O2 Delivery O2 Flow Rate FiO2 11/13/16 08:00 97.8 89 18 177/81 (113) 98 11/13/16 04:00 97.8 87 21 131/63 (85) 95 11/13/16 00:00 98.4 82 19 176/82 (113) 94 11/12/16 21:45 Room Air 11/12/16 20:00 82 11/12/16 20:00 98.0 89 22 162/80 (107) 98 11/12/16 18:50 88 11/12/16 16:02 97.3 80 18 165/80 (108) 98 11/12/16 12:02 97.8 81 18 175/82 (113) 98 (Lizy Pineda) -: 11/12/16 0830 11/12/16 0830 Physical Exam General Appearance: Well Developed, No Acute Distress, Comfortable, Sleeping, Obese (Lizy Pineda) Eyes Eye Exam: Pupils Equal, Pupils Reactive (Lizy Pineda) Throat Throat Exam: Oral Mucosa [place] & Moist (Lizy Pineda) Neck Neck Exam: Neck Supple (Lizy Pineda) Pulmonary Resp Exam: Clear Bilaterally, Breath Sounds Equal, No Distress, Decreased Bases (Lizy Pineda) Cardiology CV Exam: Regular, Normal Sinus Rhythm, Good Perfusion (Lizy Pineda) Gastrointestinal/Abdomen GI Exam: Soft, Non-Tender, Bowel Sounds Present (Lizy Pineda) Musculoskeletal MS Exam: Joints Intact, Normal Tone, Unable to Ambulate (Lizy Pineda) Integumentary Skin Exam: Warm, Dry, Intact Skin Remarks left foot ulcer, wrapped (Lizy Pineda) Extremeties Extremities Exam: Pedal Pulses Palpable, Trace Edema (Lizy Pineda) Neurologic Neuro Exam: Alert, Awake, Oriented, Speech Clear, Moving All Extremities (Lizy Pineda) Psychiatric Psych Exam: Appropriate Responses (Lizy Pineda) Assessment/Plan Discussed Condition With: Patient Assessment Summary: FREDI/Acute Renal Failure Problem List: (1) Acute renal failure ICD Codes: N17.9 - Acute kidney failure, unspecified Status: Acute Plan: She apparently has a baseline creatinine of 1mg/dL FREDI 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 HD initiated on 10/13/16, last HD 11/03. Her renal function began to improve Sunday but was worse yesterday Today's labs are in process If improved, she can be discharged. Avoid nephrotoxic agents. Avoid IVF. Continue to encourage PO intake. (2) Sepsis ICD Codes: A41.9 - Sepsis, unspecified organism Plan: + Pseudomonas in the blood, and gram stain of the wound. Currently on Cefepime (x 6 weeks) Midline placement okay Continue renal dosing meds, abx. (3) Metabolic acidosis ICD Codes: E87.2 - Acidosis Status: Acute Plan: Corrected, monitor (4) Anemia ICD Codes: D64.9 - Anemia Status: Acute Plan: Hb improved, monitor (5) Vitamin D deficiency ICD Codes: E55.9 - Vitamin D deficiency, unspecified Plan: replacement ordered (6) Itching ICD Codes: L29.9 - Pruritus, unspecified Plan: on Benadryl cream also Vistaril PRN with daily Claritin Plan (Lizy Pineda) Plan patient was seen and examined. Renal function is better today. If it continues to improve, she can be discharged in 1-2 days. (Francisco Javier Quiros MD) Problem Qualifiers (1) Acute renal failure: Qualified Codes: N17.9 - Acute kidney failure, unspecified (2) Anemia: Qualified Codes: D64.9 - Anemia, unspecified Lizy Pineda Nov 13, 2016 11:31 Francisco Javier Quiros MD Nov 13, 2016 21:30
[2016-11-13 12:23] LABS: AUTOMATED NEUTROPHIL # 2.6 TH/MM3 (1.8-7.7); BASOPHIL # 0.1 TH/MM3 (0-0.2); BASOPHIL % 2.4 % (0.0-2.0); EOSINOPHIL # 0.3 TH/MM3 (0-0.4); EOSINOPHIL % 6.1 % (0.0-4.0); HEMATOCRIT 28.8 % (35.0-46.0); LYMPH % 23.8 % (9.0-44.0); MEAN CELL VOLUME 91.2 FL (80.0-100.0); MEAN CORPUSCULAR HEMOGLOBIN 30.5 PG (27.0-34.0); MEAN CORPUSCULAR HGB CONC 33.5 % (32.0-36.0); MONO % 8.1 % (0.0-8.0); NEUT % 59.6 % (16.0-70.0); PLATELET COUNT 97 TH/MM3 (150-450); RED BLOOD COUNT 3.16 MIL/MM3 (4.00-5.30); RED CELL DISTRIBUTION WIDTH 17.7 % (11.6-17.2); WHITE BLOOD COUNT 4.3 TH/MM3 (4.0-11.0)
[2016-11-13 12:27] LABS: ALKALINE PHOSPHATASE 163 U/L (45-117); TOTAL BILIRUBIN ADULT 0.4 MG/DL (0.2-1.0)
[2016-11-13 12:28] LABS: ALT (GPT) 9 U/L (10-53); ANION GAP 12 MEQ/L (5-15); AST (GOT) 16 U/L (15-37); BLOOD UREA NITROGEN 37 MG/DL (7-18); CHLORIDE 108 MEQ/L (98-107); GLOMERULAR FILTRATION RATE 11 ML/MIN (>89); MAGNESIUM 1.7 MG/DL (1.5-2.5); POTASSIUM 3.7 MEQ/L (3.5-5.1); SODIUM (NA) 140 MEQ/L (136-145)
[2016-11-13 12:39] LABS: HEMO FLAGS AUTO DIFF; SCAN/DIFF AUTO DIFF CONFIRMED
[2016-11-13] MEDS: hydrALAZINE HCL 20 MG/ML VIAL IV PUSH PRN (13:02)
[2016-11-13] MEDS: CEFEPIME INJ 1,000 MG in SODIUM CHLORIDE 0.9% INJ 100 ML IV SCH (17:27)
[2016-11-13] MEDS ORDERED: SOLU250I IV PUSH (19:39)
[2016-11-13] MEDS ORDERED: EPIN1INJ21 SQ (19:39)
[2016-11-13] MEDS ORDERED: EPIN1INJ21 IV PUSH (19:39)
--- NOTE | 2016-11-13 19:42 | HHI.FF ---
Infusion Therapy Location of Infusion Therapy: [facility] Infusion Therapy Order Patient Information Appointment Date: Nov 14, 2016 Patient Weight 103.9 kg Diagnosis: Diagnosis Pseudomonas osteomyelitis of foot Coded Allergies: fentanyl (Verified Allergy, Unknown, 10/25/16) morphine (Unverified Allergy, Unknown, 09/26/16) vancomycin (Verified Adverse Reaction, Severe, Rash, 10/17/16) Administer Medication Cefepime 1 gram IV q 24 hours Start Treatment: Nov 14, 2016 Stop Treatment: Nov 28, 2016 Additional Information Venous access: Other (Midline) Additional Instructions [x] Peripheral flush and dressing changes per protocol [x] Implanted port and central flakeboard line tender: * Implanted port: 10 ml Normal Saline followed by 5 ml Heparin 100 units/ml Heparin flush after each use and monthly to maintain. [] May leave port accessed during therapy. [] May leave peripheral site accessed for duration of therapy. [x] If patient has SOB or respiratory distress, check oxygen saturation. If less than 90% or clinical signs of respiratory distress, administer oxygen at 2 L/min. via nasal cannula and notify physician. [x] Anaphylaxis/Reaction orders: * Stop infusion. * Keep IV line open with saline flush. * Notify physician. * Monitor vital signs every 15 minutes until symptoms resolve. * Check Oxygen saturation; Oxygen at 2 L/min. via nasal cannula if less than 90% or clinical signs of respiratory distress. * Administer diphenhydramine (Benadryl) 25 mg IV STAT, (unless patient has received as pre-med). May repeat once, if necessary. * Solu-Cortef 250 mg IVP over 30-60 seconds, use 100 mg vials for each dissolution. * Epinephrine (1mg/1 ml) 0.3 mg subcutaneously or IVP now with any signs of respiratory distress. * Check with physician for new additional pre-med orders if patient is re- challenged or re-treated. [x] May remove PICC line when treatment complete, after confirming with Physician. [x] If the patient is admitted to the hospital, the ED, or transferred via [facility] , complete transfer form including medication reconciliation order sheet. Laboratory Tests Weekly Labs: CBC w/diff, Creatinine, CRP, LFT's (Hepatic function test) Additional Information Please draw weekly labs or Call with abnormals, change in clinical condition or problems to: or covering ID Physician Follow up appt: Follow up with PCP Follow up with other MDs as planned. Counseling: Counseled about medication side effects Counseled about PICC line care and hand hygiene. Lilibeth Johnson MD Nov 13, 2016 19:42
--- NOTE | 2016-11-13 19:46 | HHI.PR ---
Addendum to Inpatient Note Addendum Reason: Additional Documentation Additional Information Recd call from . [email or web address] and clinically improved. Midline in place. Cefepime 1 gm IV daily for 14 more days. Infusion orders in chart and EMAR completed. Will sign off please call back if any change in clinical condition or questions. Lilibeth Johnson MD Nov 13, 2016 19:46
[2016-11-13] MEDS: hydrOXYzine HCL 25 MG TAB PO PRN (20:43)
[2016-11-14] VITALS (8 sets, daily range): BP systolic 162–185; BP diastolic 77–93; PULSE 79–94; RESP 16–20; TEMP 97.2–97.9; O2SAT 100
[2016-11-14] MEDS: hydrALAZINE HCL 20 MG/ML VIAL IV PUSH PRN (00:56)
[2016-11-14] MEDS: hydrOXYzine HCL 25 MG TAB PO PRN ×3 (04:58→19:48)
[2016-11-14] MEDS: INSULIN NovoLIN REGULAR SUPPLEMENTAL SCALE SQ SCH ×4 (04:59→23:03)
[2016-11-14] MEDS: EUCERIN CREAM 120 GM JAR TOPICAL PRN (04:59)
[2016-11-14] MEDS: hydrALAZINE HCL 100 MG TAB PO SCH ×3 (04:59→23:07)
[2016-11-14] MEDS: cloNIDine HCL 0.1 MG TAB PO SCH ×3 (04:59→23:07)
[2016-11-14] MEDS: SODIUM CHLORIDE 0.9% FLUSH 10 ML FLUSH IV FLUSH SCH ×2 (07:39→20:48)
[2016-11-14] MEDS: CHLORHEXIDINE 0.12% (ORAL KIT) 15 ML CUP MT SCH ×2 (07:39→20:00)
[2016-11-14] MEDS: LORATADINE 10 MG TAB PO SCH (08:55)
[2016-11-14] MEDS: THIAMINE HCL 100 MG TAB PO SCH (08:55)
[2016-11-14] MEDS: DOCUSATE SODIUM 50 MG/SENNA 8.6 MG TAB PO SCH ×2 (08:55→20:48)
[2016-11-14] MEDS: FAMOTIDINE 20 MG TAB PO SCH ×2 (08:55→20:48)
[2016-11-14] MEDS: METOPROLOL TARTRATE 25 MG TAB PO SCH (08:55)
[2016-11-14] MEDS: LACTOBACILLUS ACIDOPHILUS TAB PO SCH ×3 (08:55→17:31)
[2016-11-14] MEDS: NIFEdipine 60 MG SUSTAINED RELEASE TAB PO SCH ×2 (08:55→20:48)
[2016-11-14] MEDS: HEPARIN SODIUM - SQ 10,000 UNITS/ML VIAL SQ SCH ×2 (08:55→20:47)
[2016-11-14] MEDS: FLUOROMETHOLONE 0.1% OPHT SUSP 5 ML BTL EACH EYE SCH ×2 (08:56→20:48)
[2016-11-14] MEDS: DORZOLAMIDE 2% OPTH SOLN 200 DROP/10 ML BTLO EACH EYE SCH ×2 (08:56→20:48)
[2016-11-14] MEDS: LACTIC ACID (AMMONIUM LACTATE) 12% LOTION 225 GM BTL TOPICAL SCH ×2 (08:56→20:38)
[2016-11-14] MEDS: CHOLECALCIFEROL (VIT D3) 5000 UNIT CAP PO SCH (09:09)
[2016-11-14] MEDS: amLODIPine BESYLATE 5 MG TAB PO SCH (10:14)
--- NOTE | 2016-11-14 10:34 | HHI.NPPN ---
Subjective General Problems: Anemia, Hypertension Renal Failure: Acute Interval History She is resting. Renal function improved as of yesterday. Has been hypertensive. (Lizy Pineda) Review of Systems General Constitutional: Fatigue (Lizy Pineda) Eyes Eyes: Itching (Lizy Pineda) Ears, Nose, & Throat ENT Remarks loss of appetite (Lizy Pineda) Cardiovascular Cardiac: Edema (Lizy Pineda) Endocrine Endocrine: Thirst (Lizy Pineda) Skin Skin: Skin Rash, Ulcers Skin Remarks generalized rash with peeling skin; ulcer planter surface left foot (Lizy Pineda) Objective Data Data Vital Signs Date Time Temp Pulse Resp B/P (MAP) Pulse Ox O2 Delivery O2 Flow Rate FiO2 11/14/16 08:00 97.2 94 20 183/90 (121) 100 11/14/16 04:00 97.4 87 16 170/87 (114) 100 11/14/16 04:00 Room Air 11/14/16 02:01 162/82 (108) 11/14/16 00:00 97.9 84 18 185/93 (123) 100 11/13/16 23:32 Room Air 11/13/16 20:22 86 11/13/16 20:00 97.7 85 18 180/87 (118) 100 11/13/16 16:00 97.6 82 18 181/90 (120) 98 11/13/16 12:00 97.7 83 18 195/97 (129) 97 (Lizy Pineda) -: 11/13/16 1120 11/13/16 1120 Physical Exam General Appearance: Well Developed, No Acute Distress, Comfortable, Sleeping, Obese (Lizy Pineda) Eyes Eye Exam: Pupils Equal, Pupils Reactive (Lizy Pineda) Throat Throat Exam: Oral Mucosa [place] & Moist (Lizy Pineda) Neck Neck Exam: Neck Supple (Lizy Pineda) Pulmonary Resp Exam: Clear Bilaterally, Breath Sounds Equal, No Distress, Decreased Bases (Lizy Pineda) Cardiology CV Exam: Regular, Normal Sinus Rhythm, Good Perfusion (Lizy Pineda) Gastrointestinal/Abdomen GI Exam: Soft, Non-Tender, Bowel Sounds Present (Lizy Pineda) Musculoskeletal MS Exam: Joints Intact, Normal Tone, Unable to Ambulate (Lizy Pineda) Integumentary Skin Exam: Warm, Dry, Intact Skin Remarks left foot ulcer, wrapped (Lizy Pineda) Extremeties Extremities Exam: Pedal Pulses Palpable, Trace Edema (Lizy Pineda) Neurologic Neuro Exam: Alert, Awake, Oriented, Speech Clear, Moving All Extremities (Lizy Pineda) Psychiatric Psych Exam: Appropriate Responses (Lizy Pineda) Assessment/Plan Discussed Condition With: Patient Assessment Summary: FREDI/Acute Renal Failure Problem List: (1) Acute renal failure ICD Codes: N17.9 - Acute kidney failure, unspecified Status: Acute Plan: She apparently has a baseline creatinine of 1mg/dL FREDI 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 HD initiated on 10/13/16, last HD 11/03. Her renal function is improving Today's labs are in process Potential discharge tomorrow Avoid nephrotoxic agents. Avoid IVF. Continue to encourage PO intake. (2) Sepsis ICD Codes: A41.9 - Sepsis, unspecified organism Plan: + Pseudomonas in the blood, and gram stain of the wound. Currently on Cefepime until 11/29 Midline placement done Continue renal dosing meds, abx. (3) Metabolic acidosis ICD Codes: E87.2 - Acidosis Status: Acute Plan: Corrected, monitor (4) Anemia ICD Codes: D64.9 - Anemia Status: Acute Plan: Hb improved, monitor (5) Vitamin D deficiency ICD Codes: E55.9 - Vitamin D deficiency, unspecified Plan: replacement ordered (6) Itching ICD Codes: L29.9 - Pruritus, unspecified Plan: on Benadryl cream also Vistaril PRN with daily Claritin (7) HTN (hypertension) ICD Codes: I10 - Hypertension Status: Chronic Plan: On clonidine and hydralazine amlodipine ordered Plan . (Lizy Pineda) Plan patient was seen and examined. Renal function continues to improve gradually. No need for dialysis. (Francisco Javier Quiros MD) Problem Qualifiers (1) Acute renal failure: Qualified Codes: N17.9 - Acute kidney failure, unspecified (2) Anemia: Qualified Codes: D64.9 - Anemia, unspecified Lizy Pineda [facility] Nov 14, 2016 10:34 Francisco Javier Quiros MD Nov 14, 2016 20:59
--- NOTE | 2016-11-14 10:52 | HHI.PR ---
Subjective Remarks Follow up for pseudomonas bacteremia, acute kidney injury. Patient is currently doing well. Denies any acute concerns. Objective Vitals Vital Signs Date Time Temp Pulse Resp B/P (MAP) Pulse Ox O2 Delivery O2 Flow Rate FiO2 11/14/16 08:00 97.2 94 20 183/90 (121) 100 11/14/16 04:00 97.4 87 16 170/87 (114) 100 11/14/16 04:00 Room Air 11/14/16 02:01 162/82 (108) 11/14/16 00:00 97.9 84 18 185/93 (123) 100 11/13/16 23:32 Room Air 11/13/16 20:22 86 11/13/16 20:00 97.7 85 18 180/87 (118) 100 11/13/16 16:00 97.6 82 18 181/90 (120) 98 11/13/16 12:00 97.7 83 18 195/97 (129) 97 I/O 11/13/16 11/13/16 11/13/16 11/14/16 11/14/16 11/14/16 07:00 15:00 23:00 07:00 15:00 23:00 Intake Total 480 ml 820 ml 480 ml Output Total 300 ml 0 ml Balance 180 ml 820 ml 480 ml Intake Oral 480 ml 720 ml 480 ml IV Total 100 ml Output Urine Total 300 ml 0 ml # Bowel Movements 0 Result Diagram: 11/13/16 1120 11/13/16 1120 Objective Remarks GENERAL: Alert, NAD. Morbidly obese. SKIN: Warm and dry. HEAD: Normocephalic. EYES: No scleral icterus. No injection or drainage. NECK: Supple, trachea midline. No JVD or lymphadenopathy. CARDIOVASCULAR: Regular rate and rhythm without murmurs, gallops, or rubs. RESPIRATORY: Breath sounds equal bilaterally. No accessory muscle use. GASTROINTESTINAL: Abdomen soft, non-tender, nondistended. MUSCULOSKELETAL: No cyanosis, or edema. BACK: Nontender without obvious deformity. No CVA tenderness. Procedures Intubation. 10/13/2016 [place] The left ventricular systolic function is normal with an estimated ejection fraction in the range of 60-65%. The right ventricular systoilc function is moderately decreased. There is severe tricuspid regurgitation. There is estimated [id number] pulmonary hypertension present (range 60- 70 mmHg). Appears to be a prominent papillary muscle in the short axis view, does not appear to be a vegetation as it has no extra-cardiac motion (also noted in the long axis). A/P Problem List: (1) Acute renal failure ICD Code: N17.9 - Acute kidney failure, unspecified Status: Acute (2) Hyperkalemia ICD Code: E87.5 - Hyperkalemia Status: Acute (3) HTN (hypertension) ICD Code: I10 - Hypertension Status: Chronic (4) Diabetes mellitus type 2, uncontrolled ICD Code: E11.65 - Uncontrolled type 2 diabetes mellitus Status: Chronic Assessment and Plan This is a 51yF from a SNF who was being treated for chronic LLE cellulitis with approximately 6 months of vancomycin through an indwelling right arm PICC line, who presents with worsening creatinine found at her SNF and altered mental status. On arrival to the ED, she had a Cr 7.7, has a chronic indwelling black catheter and has not had any urine per report in the last few days. Renal ultrasound was negative for hydronephrosis. She also has a excoriating rash over her trunk and arms. She was initially admitted to the floor, but rapid responsed for hypotension and altered mental status. Patient was intubated and required pressors. She was extubated. However, she became unresponsive again on 10/18/2016 and a stroke alert was called. After CT head showed no acute bleed, patient underwent MRI studies and neurologist recommended tPA administration. Patient was extubated on 10/19/2016. Detail ICU course is outlined in the last ICU note on 10/20/2016. - Stroke alert 10/18/2016 - Suspected use of benzodiazepine - metabolic encephalopathy due to sepsis, uremia - Patient received tPA on 10/18/2016 per neurology recommendations. - MRI studies negative for stroke. - Currently, patient is at her baseline. - Acute respiratory failure - hypoxic, hypercarbic. - Obesity hypoventilation syndrome. - Intubated twice in the ICU. Currently on nasal cannula. - Acute kidney injury - Patient required hemodialysis. Currently off dialysis. - Per nephrology, no indication for dialysis at this point. - Creatinine 4.3 --> 4.63 --> 4.43. - BMP pending this morning. Probable discharge within a day or 2 depending on SNF arrangements. - Acute osteomyelitis of the left lower ext - Pseudomonas bacteremia - Probable PICC line infection - Currently Cefepime 1g Q24hrs. - On 11/13/2016, infectious disease recommended 14 more days of cefepime 1 g IV daily. - Hypertension - Continue Clonidine 0.1mg Q8hrs, Hydralazine 100mg Q8hrs, Nifedipine 60mg Q12hrs. Full code. Heparin SQ. Problem Qualifiers (1) Acute renal failure: Qualified Codes: N17.9 - Acute kidney failure, unspecified Kassie Alcantar DO Nov 14, 2016 10:52 am
[2016-11-14] MEDS: CEFEPIME INJ 1,000 MG in SODIUM CHLORIDE 0.9% INJ 100 ML IV SCH (15:08)
[2016-11-14 17:32] LABS: BICARBONATE 20.8 MEQ/L (21.0-32.0); POTASSIUM 3.6 MEQ/L (3.5-5.1)
[2016-11-15] VITALS: BP 172/81; PULSE 84; RESP 16; TEMP 98; O2SAT 99
[2016-11-15 04:00] VITALS: BP 174/84; PULSE 85; RESP 16; TEMP 98; O2SAT 98
[2016-11-15] MEDS: INSULIN NovoLIN REGULAR SUPPLEMENTAL SCALE SQ SCH ×3 (05:17→18:00)
[2016-11-15] MEDS: hydrALAZINE HCL 100 MG TAB PO SCH ×3 (05:17→21:55)
[2016-11-15] MEDS: cloNIDine HCL 0.1 MG TAB PO SCH ×3 (05:17→21:56)
[2016-11-15] MEDS: SODIUM CHLORIDE 0.9% FLUSH 10 ML FLUSH IV FLUSH SCH ×2 (07:27→21:57)
[2016-11-15 08:00] VITALS: BP 176/86; PULSE 88; RESP 18; TEMP 98.1; O2SAT 96
[2016-11-15] MEDS: CHLORHEXIDINE 0.12% (ORAL KIT) 15 ML CUP MT SCH ×2 (08:00→20:00)
[2016-11-15] MEDS: amLODIPine BESYLATE 5 MG TAB PO SCH (09:12)
[2016-11-15] MEDS: FAMOTIDINE 20 MG TAB PO SCH ×2 (09:12→21:55)
[2016-11-15] MEDS: CHOLECALCIFEROL (VIT D3) 5000 UNIT CAP PO SCH (09:13)
[2016-11-15] MEDS: LORATADINE 10 MG TAB PO SCH (09:13)
[2016-11-15] MEDS: METOPROLOL TARTRATE 25 MG TAB PO SCH (09:13)
[2016-11-15] MEDS: THIAMINE HCL 100 MG TAB PO SCH (09:13)
[2016-11-15] MEDS: DOCUSATE SODIUM 50 MG/SENNA 8.6 MG TAB PO SCH ×2 (09:13→21:55)
[2016-11-15] MEDS: LACTOBACILLUS ACIDOPHILUS TAB PO SCH ×3 (09:13→17:35)
[2016-11-15] MEDS: NIFEdipine 60 MG SUSTAINED RELEASE TAB PO SCH ×2 (09:13→21:55)
[2016-11-15] MEDS: HEPARIN SODIUM - SQ 10,000 UNITS/ML VIAL SQ SCH ×2 (09:14→21:56)
[2016-11-15] MEDS: LACTIC ACID (AMMONIUM LACTATE) 12% LOTION 225 GM BTL TOPICAL SCH ×2 (09:17→21:00)
[2016-11-15] MEDS: DORZOLAMIDE 2% OPTH SOLN 200 DROP/10 ML BTLO EACH EYE SCH ×2 (09:17→21:57)
[2016-11-15] MEDS: FLUOROMETHOLONE 0.1% OPHT SUSP 5 ML BTL EACH EYE SCH ×2 (09:17→21:57)
--- NOTE | 2016-11-15 09:55 | HHI.PR ---
Subjective Remarks Follow up for pseudomonas bacteremia, acute kidney injury. Patient is doing about the same. No new concerns. Nephrology is okay for patient to be discharged. Waiting for insurance authorization for SNF. Objective Vitals Vital Signs Date Time Temp Pulse Resp B/P (MAP) Pulse Ox O2 Delivery O2 Flow Rate FiO2 11/15/16 09:49 Room Air 11/15/16 08:00 98.1 88 18 176/86 (116) 96 11/15/16 04:00 98.0 85 16 174/84 (114) 98 11/15/16 00:00 98.0 84 16 172/81 (111) 99 11/14/16 20:36 81 11/14/16 20:00 97.2 80 18 167/77 (107) 100 11/14/16 19:52 Room Air 11/14/16 16:00 97.9 79 20 163/77 (105) 100 11/14/16 12:00 97.9 81 20 177/86 (116) 100 11/14/16 12:00 97.9 81 20 177/86 (116) 100 I/O 11/14/16 11/14/16 11/14/16 11/15/16 11/15/16 11/15/16 07:00 15:00 23:00 07:00 15:00 23:00 Intake Total 480 ml 480 ml 480 ml Output Total 0 ml 1150 ml 250 ml Balance 480 ml -670 ml 230 ml Intake Oral 480 ml 480 ml 480 ml Output Urine Total 0 ml 1150 ml 250 ml # Bowel Movements 0 0 0 Result Diagram: 11/13/16 1120 11/14/16 1609 Objective Remarks GENERAL: Alert, NAD. Morbidly obese. SKIN: Warm and dry. HEAD: Normocephalic. EYES: No scleral icterus. No injection or drainage. NECK: Supple, trachea midline. No JVD or lymphadenopathy. CARDIOVASCULAR: Regular rate and rhythm without murmurs, gallops, or rubs. RESPIRATORY: Breath sounds equal bilaterally. No accessory muscle use. GASTROINTESTINAL: Abdomen soft, non-tender, nondistended. MUSCULOSKELETAL: No cyanosis, or edema. BACK: Nontender without obvious deformity. No CVA tenderness. Procedures Intubation. 10/13/2016 [place] The left ventricular systolic function is normal with an estimated ejection fraction in the range of 60-65%. The right ventricular systoilc function is moderately decreased. There is severe tricuspid regurgitation. There is estimated byyncmmi-kb-cxveyq pulmonary hypertension present (range 60- 70 mmHg). Appears to be a prominent papillary muscle in the short axis view, does not appear to be a vegetation as it has no extra-cardiac motion (also noted in the long axis). A/P Problem List: (1) Acute renal failure ICD Code: N17.9 - Acute kidney failure, unspecified Status: Acute (2) Hyperkalemia ICD Code: E87.5 - Hyperkalemia Status: Acute (3) HTN (hypertension) ICD Code: I10 - Hypertension Status: Chronic (4) Diabetes mellitus type 2, uncontrolled ICD Code: E11.65 - Uncontrolled type 2 diabetes mellitus Status: Chronic Assessment and Plan This is a 51yF from a SNF who was being treated for chronic LLE cellulitis with approximately 6 months of vancomycin through an indwelling right arm PICC line, who presents with worsening creatinine found at her SNF and altered mental status. On arrival to the ED, she had a Cr 7.7, has a chronic indwelling black catheter and has not had any urine per report in the last few days. Renal ultrasound was negative for hydronephrosis. She also has a excoriating rash over her trunk and arms. She was initially admitted to the floor, but rapid responsed for hypotension and altered mental status. Patient was intubated and required pressors. She was extubated. However, she became unresponsive again on 10/18/2016 and a stroke alert was called. After CT head showed no acute bleed, patient underwent MRI studies and neurologist recommended tPA administration. Patient was extubated on 10/19/2016. Detail ICU course is outlined in the last ICU note on 10/20/2016. - Stroke alert 10/18/2016 - Suspected use of benzodiazepine - metabolic encephalopathy due to sepsis, uremia - Patient received tPA on 10/18/2016 per neurology recommendations. - MRI studies negative for stroke. - Currently, patient is at her baseline. - Acute respiratory failure - hypoxic, hypercarbic. - Obesity hypoventilation syndrome. - Intubated twice in the ICU. Currently on nasal cannula. - Acute kidney injury - Patient required hemodialysis. Currently off dialysis. - Per nephrology, no indication for dialysis at this point. - Creatinine 4.3 --> 4.63 --> 4.43. - Waiting for insurance approval for SNF placement. - Acute osteomyelitis of the left lower ext - Pseudomonas bacteremia - Probable PICC line infection - Currently Cefepime 1g Q24hrs. - On 11/13/2016, infectious disease recommended 14 more days of cefepime 1 g IV daily. - Hypertension - Continue Clonidine 0.1mg Q8hrs, Hydralazine 100mg Q8hrs, Nifedipine 60mg Q12hrs. Full code. Heparin SQ. Problem Qualifiers (1) Acute renal failure: Qualified Codes: N17.9 - Acute kidney failure, unspecified Kassie Alcantar DO Nov 15, 2016 9:55 am
--- NOTE | 2016-11-15 10:09 | HHI.NPPN ---
Subjective General Problems: Anemia, Hypertension Renal Failure: Acute Interval History She looks better today. Sitting up on edge of bed. Today's labs are not available, as of yesterday renal function was improving. (Lizy Pineda) Review of Systems General Constitutional: Fatigue (Lizy Pineda) Eyes Eyes: Itching (Lizy Pineda) Ears, Nose, & Throat ENT Remarks loss of appetite (Lizy Pineda) Cardiovascular Cardiac: Edema (Lizy Pineda) Endocrine Endocrine: Thirst (Lizy Pineda) Skin Skin: Skin Rash, Ulcers Skin Remarks generalized rash with peeling skin; ulcer planter surface left foot (Lizy Pineda) Objective Data Data Vital Signs Date Time Temp Pulse Resp B/P (MAP) Pulse Ox O2 Delivery O2 Flow Rate FiO2 11/15/16 09:49 Room Air 11/15/16 08:00 98.1 88 18 176/86 (116) 96 11/15/16 04:00 98.0 85 16 174/84 (114) 98 11/15/16 00:00 98.0 84 16 172/81 (111) 99 11/14/16 20:36 81 11/14/16 20:00 97.2 80 18 167/77 (107) 100 11/14/16 19:52 Room Air 11/14/16 16:00 97.9 79 20 163/77 (105) 100 11/14/16 12:00 97.9 81 20 177/86 (116) 100 11/14/16 12:00 97.9 81 20 177/86 (116) 100 (Lizy Pineda) -: 11/13/16 1120 11/14/16 1609 Physical Exam General Appearance: Well Developed, No Acute Distress, Comfortable, Sleeping, Obese (Lizy Pineda) Eyes Eye Exam: Pupils Equal, Pupils Reactive (Lizy Pineda) Throat Throat Exam: Oral Mucosa [place] & Moist (Lizy Pineda) Neck Neck Exam: Neck Supple (Lizy Pineda) Pulmonary Resp Exam: Clear Bilaterally, Breath Sounds Equal, No Distress, Decreased Bases (Lizy Pineda) Cardiology CV Exam: Regular, Normal Sinus Rhythm, Good Perfusion (Lizy Pineda) Gastrointestinal/Abdomen GI Exam: Soft, Non-Tender, Bowel Sounds Present (Lizy Pineda) Musculoskeletal MS Exam: Joints Intact, Normal Tone, Unable to Ambulate (Lizy Pineda) Integumentary Skin Exam: Warm, Dry, Intact Skin Remarks left foot ulcer, wrapped (Lizy Pineda) Extremeties Extremities Exam: Pedal Pulses Palpable, Trace Edema (Lizy Pineda) Neurologic Neuro Exam: Alert, Awake, Oriented, Speech Clear, Moving All Extremities (Lizy Pineda) Psychiatric Psych Exam: Appropriate Responses (Lizy Pineda) Assessment/Plan Discussed Condition With: Patient Assessment Summary: FREDI/Acute Renal Failure Problem List: (1) Acute renal failure ICD Codes: N17.9 - Acute kidney failure, unspecified Status: Acute Plan: She apparently has a baseline creatinine of 1mg/dL FREDI 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 HD initiated on 10/13/16, last HD 11/03. Her renal function has been improving Today's labs are in process If improved cleared for discharge; needs SNF placement Avoid nephrotoxic agents. Avoid IVF. Continue to encourage PO intake. (2) Sepsis ICD Codes: A41.9 - Sepsis, unspecified organism Plan: + Pseudomonas in the blood, and gram stain of the wound. Currently on Cefepime until 11/29 Midline placement done Continue renal dosing meds, abx. (3) Metabolic acidosis ICD Codes: E87.2 - Acidosis Status: Acute Plan: Corrected, monitor (4) Anemia ICD Codes: D64.9 - Anemia Status: Acute Plan: Hb improved, monitor (5) Vitamin D deficiency ICD Codes: E55.9 - Vitamin D deficiency, unspecified Plan: replacement ordered (6) Itching ICD Codes: L29.9 - Pruritus, unspecified Plan: on Benadryl cream also Vistaril PRN with daily Claritin (7) HTN (hypertension) ICD Codes: I10 - Hypertension Status: Chronic Plan: On clonidine and hydralazine amlodipine ordered Plan (Lizy Pineda) Plan patient was seen and examined. Renal function is slowly improving. No need for dialysis. (Francisco Javier Quiros MD) Problem Qualifiers (1) Acute renal failure: Qualified Codes: N17.9 - Acute kidney failure, unspecified (2) Anemia: Qualified Codes: D64.9 - Anemia, unspecified Lizy Pineda Nov 15, 2016 10:09 Francisco Javier Quiros MD Nov 16, 2016 08:01
[2016-11-15 10:45] LABS: BICARBONATE 20.9 MEQ/L (21.0-32.0); POTASSIUM 3.4 MEQ/L (3.5-5.1)
[2016-11-15 12:00] VITALS: BP 152/79; PULSE 77; RESP 18; TEMP 97.2; O2SAT 97
[2016-11-15] MEDS: CEFEPIME INJ 1,000 MG in SODIUM CHLORIDE 0.9% INJ 100 ML IV SCH (14:50)
[2016-11-15 16:00] VITALS: BP 159/80; PULSE 82; RESP 18; TEMP 97.9; O2SAT 97
[2016-11-16] VITALS: BP 186/89; PULSE 83; RESP 16; TEMP 97.9; O2SAT 100
[2016-11-16] MEDS: INSULIN NovoLIN REGULAR SUPPLEMENTAL SCALE SQ SCH ×5 (05:28→23:48)
[2016-11-16] MEDS: cloNIDine HCL 0.1 MG TAB PO SCH ×3 (05:32→21:30)
[2016-11-16] MEDS: hydrALAZINE HCL 100 MG TAB PO SCH ×3 (05:32→21:25)
[2016-11-16 08:00] VITALS: BP 167/86; PULSE 88; RESP 16; TEMP 98.2; O2SAT 97
[2016-11-16] MEDS: CHLORHEXIDINE 0.12% (ORAL KIT) 15 ML CUP MT SCH ×2 (08:00→20:00)
--- NOTE | 2016-11-16 08:47 | HHI.NPPN ---
Subjective General Problems: Anemia, Hypertension Renal Failure: Acute Interval History Renal function had improved as of yesterday, labs are pending today. BP is high. Review of Systems General Constitutional: Fatigue Eyes Eyes: Itching Ears, Nose, & Throat ENT Remarks loss of appetite Endocrine Endocrine: Thirst Skin Skin: Skin Rash, Ulcers Skin Remarks generalized rash with peeling skin; ulcer planter surface left foot Objective Data Data Vital Signs Date Time Temp Pulse Resp B/P (MAP) Pulse Ox O2 Delivery O2 Flow Rate FiO2 11/16/16 00:00 97.9 83 16 186/89 (121) 100 11/15/16 22:02 Room Air 11/15/16 16:00 97.9 82 18 159/80 (106) 97 11/15/16 12:00 97.2 77 18 152/79 (103) 97 11/15/16 09:49 Room Air -: 11/13/16 1120 11/15/16 0936 Physical Exam General Appearance: Well Developed, No Acute Distress, Comfortable, Sleeping, Obese Appearance Remarks intubated. Eyes Eye Exam: Pupils Equal, Pupils Reactive Throat Throat Exam: Oral Mucosa [place] & Moist Neck Neck Exam: Neck Supple Pulmonary Resp Exam: Clear Bilaterally, Breath Sounds Equal, No Distress, Decreased Bases Cardiology CV Exam: Regular, Normal Sinus Rhythm, Good Perfusion Gastrointestinal/Abdomen GI Exam: Soft, Non-Tender, Bowel Sounds Present GI Remarks obese. Musculoskeletal MS Exam: Joints Intact, Normal Tone, Unable to Ambulate Integumentary Skin Exam: Warm, Dry, Intact Skin Remarks skin desquamation. Extremeties Extremities Exam: Pedal Pulses Palpable, Trace Edema Neurologic Neuro Exam: Alert, Awake, Oriented, Speech Clear, Moving All Extremities Neuro Remarks appears to be awake, appears to follow some commands. Psychiatric Psych Exam: Appropriate Responses Assessment/Plan Discussed Condition With: Patient Assessment Summary: FREDI/Acute Renal Failure Problem List: (1) Acute renal failure ICD Codes: N17.9 - Acute kidney failure, unspecified Status: Acute Plan: She apparently has a baseline creatinine of 1mg/dL FREDI 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 HD initiated on 10/13/16, last HD 11/03. Renal function is gradually improving: slow improvement. HD held. Avoid nephrotoxic agents. Avoid IVF. Continue to encourage PO intake. (2) Sepsis ICD Codes: A41.9 - Sepsis, unspecified organism Plan: + Pseudomonas in the blood, and gram stain of the wound. Currently on Cefepime until 11/29 Midline placement done (3) Metabolic acidosis ICD Codes: E87.2 - Acidosis Status: Acute Plan: Corrected, monitor (4) Anemia ICD Codes: D64.9 - Anemia Status: Acute Plan: Hb improved, monitor (5) Vitamin D deficiency ICD Codes: E55.9 - Vitamin D deficiency, unspecified Plan: replacement ordered (6) Itching ICD Codes: L29.9 - Pruritus, unspecified Plan: on Benadryl cream also Vistaril PRN with daily Claritin (7) HTN (hypertension) ICD Codes: I10 - Hypertension Status: Chronic Plan: BP control is still poor. I have increased Metoprolol. Plan Problem Qualifiers (1) Acute renal failure: Qualified Codes: N17.9 - Acute kidney failure, unspecified (2) Anemia: Qualified Codes: D64.9 - Anemia, unspecified Francisco Javier Quiros MD Nov 16, 2016 08:47
[2016-11-16] MEDS ORDERED: CLON.1 PO (10:05)
[2016-11-16] MEDS ORDERED: AMLO5 PO (10:05)
[2016-11-16] MEDS ORDERED: IPRA0.02 NEB (10:05)
[2016-11-16] MEDS ORDERED: CHOL5000 PO (10:05)
[2016-11-16] MEDS ORDERED: CEFE1INJ2 IV (10:06)
[2016-11-16] MEDS ORDERED: NOVOLOGP2 SQ (10:06)
--- NOTE | 2016-11-16 10:09 | HHI.DS ---
Discharge Summary Admission Date Oct 12, 2016 at 8:13 pm Discharge Date: Nov 16, 2016 Admitting Diagnosis acute renal failure, anemia, hyperkalemia, metabolic acidosis (1) Acute renal failure ICD Code: N17.9 - Acute kidney failure, unspecified Status: Acute (2) Hyperkalemia ICD Code: E87.5 - Hyperkalemia Status: Acute (3) HTN (hypertension) ICD Code: I10 - Hypertension Status: Chronic (4) Diabetes mellitus type 2, uncontrolled ICD Code: E11.65 - Uncontrolled type 2 diabetes mellitus Status: Chronic Procedures Intubation. 10/13/2016 [place] The left ventricular systolic function is normal with an estimated ejection fraction in the range of 60-65%. The right ventricular systoilc function is moderately decreased. There is severe tricuspid regurgitation. There is estimated [id number] pulmonary hypertension present (range 60- 70 mmHg). Appears to be a prominent papillary muscle in the short axis view, does not appear to be a vegetation as it has no extra-cardiac motion (also noted in the long axis). Brief History - From Admission 51 y/o female with a history of DM, CVA, legally blind,neuropathy, COPD, HTN, anemia and sleep apnea was brought from a SNF to the ED for increasing renal failure. Patient states she has not been urinating since Sunday and a catheter was placed. She has been getting treated with lower extremity cellulitis with vancomycin and Zosyn through her picc line. She denies any chest pain, sob, fever, chills, nausea or diarrhea. She states she is in a wheelchair because she broke her left ankle and is unable to walk. She use to use a cpap at night but has not been for the last 6 months. CBC/BMP: 11/13/16 1120 11/15/16 0936 Significant Findings Laboratory Tests Test 11/13/16 11:20 11/14/16 16:09 11/15/16 09:36 Red Blood Count 3.16 MIL/MM3 (4.00-5.30) Hemoglobin 9.7 GM/DL (11.6-15.3) Hematocrit 28.8 % (35.0-46.0) Red Cell Distribution Width 17.7 % (11.6-17.2) Platelet Count 97 TH/MM3 (150-450) Monocytes (%) (Auto) 8.1 % (0.0-8.0) Eosinophils (%) (Auto) 6.1 % (0.0-4.0) Basophils (%) (Auto) 2.4 % (0.0-2.0) Blood Urea Nitrogen 37 MG/DL (7-18) 38 MG/DL (7-18) 41 MG/DL (7-18) Creatinine 4.43 MG/DL (0.50-1.00) 4.39 MG/DL (0.50-1.00) 4.32 MG/DL (0.50-1.00) Random Glucose 131 MG/DL (74-106) 144 MG/DL (74-106) 133 MG/DL (74-106) Total Protein 8.5 GM/DL (6.4-8.2) Albumin 2.2 GM/DL (3.4-5.0) 2.3 GM/DL (3.4-5.0) Calcium Level 8.4 MG/DL (8.5-10.1) Alkaline Phosphatase 163 U/L (45-117) Alanine Aminotransferase (ALT/SGPT) 9 U/L (10-53) Chloride Level 108 MEQ/L (98-107) Carbon Dioxide Level 20.0 MEQ/L (21.0-32.0) 20.8 MEQ/L (21.0-32.0) 20.9 MEQ/L (21.0-32.0) Estimat Glomerular Filtration Rate 11 ML/MIN (>89) 11 ML/MIN (>89) 11 ML/MIN (>89) Potassium Level 3.4 MEQ/L (3.5-5.1) Imaging Last Impressions Liver Ultrasound 10/23/16 0000 Signed Impressions: Service Date/Time: Sunday, October 23, 2016 09:45 - CONCLUSION: 1. Gallbladder sludge 2. No evidence of biliary duct dilatation 3. Otherwise unremarkable exam. Jaiden Weston MD Head CT 10/19/16 1700 Signed Impressions: Service Date/Time: October 17:01 - CONCLUSION: No acute intracranial findings Ricco Kulkarni MD Head Magnetic Resonance Angiography 10/18/16 Signed Impressions: Service Date/Time: Tuesday, October 18, 2016 16:23 - CONCLUSION: Normal examination. Ricco Kulkarni MD Chest X-Ray 10/18/16 Signed Impressions: Service Date/Time: Tuesday, October 18, 2016 14:59 - CONCLUSION: 1. Mild to moderate pulmonary vascular congestion. 2. Cardiomegaly. 3. Elevation of the right hemidiaphragm. 4. Endotracheal tube in good position 3 cm above the elsie. 5. Left internal jugular VasCath and left subclavian central line are stable in positions. Raymond Smith MD Brain MRI 10/18/16 Signed Impressions: Service Date/Time: Tuesday, October 18, 2016 16:11 - CONCLUSION: Nonspecific white matter signal change in the left frontal region. No evidence of acute stroke. Ricco Kulkarni MD Ankle X-Ray 10/14/16 Signed Impressions: Service Date/Time: Friday, October 14, 2016 17:01 - CONCLUSION: Marked soft tissue swelling with subcutaneous calcifications. Negative for fracture. Roman Montiel MD FACR Upper Extremity Ultrasound 10/13/16 Signed Impressions: Service Date/Time: Thursday, October 13, 2016 09:17 - CONCLUSION: 1. No DVT. 2. Subcutaneous edema observed. Wilner Potter Jr., MD Lower Extremity Ultrasound 10/13/16 Signed Impressions: Service Date/Time: Thursday, October 13, 2016 08:57 - CONCLUSION: 1. Study has some limitations as detailed above. No DVT observed. Wilner Potter Jr., MD Lower Extremity CT 10/13/16 Signed Impressions: Service Date/Time: Thursday, October 13, 2016 21:35 - CONCLUSION: Ulcer at the region of the base of the fifth metatarsal. There appears to be chronic and acute changes in this region. The acute changes are worrisome for osteomyelitis at the base of the fifth metatarsal. Ricco Fuentes MD Chest CT 10/13/16 Signed Impressions: Service Date/Time: Thursday, October 13, 2016 21:27 - CONCLUSION: 1. Patchy areas of consolidation seen bilaterally being worse on the right. These could represent areas of inflammatory/infectious disease. Focal round lesions to suggest septic emboli are not clearly identified. 2. Edema seen at the right superficial chest and abdomen regions. The cause of for this asymmetric edema is not known. 3. Mild ascites. Ricco Fuentes MD Abdomen CT 10/13/16 0000 Signed Impressions: Service Date/Time: Thursday, October 13, 2016 21:27 - CONCLUSION: 1. Mild ascites seen around the liver. 2. Superficial edema seen bilaterally in the subcutaneous tissues. This is asymmetric and being much more prominent on the right. 3. Small area of increased density seen independently in the gallbladder representing either small gallstones or milk of calcium. Ricco Fuentes MD Renal Ultrasound 10/12/16 0000 Signed Impressions: Service Date/Time: September 20:54 - CONCLUSION: Normal appearance of the kidneys. Ricco Fuentes MD PE at Discharge GENERAL: Alert, NAD. Morbidly obese. SKIN: Warm and dry. HEAD: Normocephalic. EYES: No scleral icterus. No injection or drainage. NECK: Supple, trachea midline. No JVD or lymphadenopathy. CARDIOVASCULAR: Regular rate and rhythm without murmurs, gallops, or rubs. RESPIRATORY: Breath sounds equal bilaterally. No accessory muscle use. GASTROINTESTINAL: Abdomen soft, non-tender, nondistended. MUSCULOSKELETAL: No cyanosis, or edema. BACK: Nontender without obvious deformity. No CVA tenderness. Pt update on day of discharge Patient is doing well. No acute concerns. No CP, SOB, fever, chills. Hospital Course This is a 51yF from a SNF who was being treated for chronic LLE cellulitis with approximately 6 months of vancomycin through an indwelling right arm PICC line, who presents with worsening creatinine found at her SNF and altered mental status. On arrival to the ED, she had a Cr 7.7, has a chronic indwelling black catheter and has not had any urine per report in the last few days. Renal ultrasound was negative for hydronephrosis. She also has a excoriating rash over her trunk and arms. She was initially admitted to the floor, but rapid responsed for hypotension and altered mental status. Patient was intubated and required pressors. She was extubated. However, she became unresponsive again on 10/18/2016 and a stroke alert was called. After CT head showed no acute bleed, patient underwent MRI studies and neurologist recommended tPA administration. Patient was extubated on 10/19/2016. Detail ICU course is outlined in the last ICU note on 10/20/2016. - Stroke alert 10/18/2016 - Suspected use of benzodiazepine - metabolic encephalopathy due to sepsis, uremia - Patient received tPA on 10/18/2016 per neurology recommendations. - MRI studies negative for stroke. - Currently, patient is at her baseline. - Acute respiratory failure - hypoxic, hypercarbic. - Obesity hypoventilation syndrome. - Intubated twice in the ICU. Currently on nasal cannula. - Acute kidney injury - Patient required hemodialysis. Currently off dialysis. - Per nephrology, no indication for dialysis at this point. - Creatinine 4.3 --> 4.63 --> 4.43 -> 4.32. - Nephrology is okay with discharging patient to SNF. - Acute osteomyelitis of the left lower ext - Pseudomonas bacteremia - Probable PICC line infection - Currently Cefepime 1g Q24hrs. - On 11/13/2016, infectious disease recommended 14 more days of cefepime 1 g IV daily. STOP date 11/28/2016 - Hypertension - Continue Clonidine 0.1mg Q8hrs, Hydralazine 100mg Q8hrs, Nifedipine 60mg Q12hrs. Pt Condition on Discharge: Good Discharge Disposition: Disch w/ Home Health Serv Discharge Time: > 30 minutes Discharge Instructions DIET: Follow Instructions for: As Tolerated, No Restrictions Speech Therapy-Diet Recommends: Regular Follow up Referrals: SNF/[facility]/ New Medications: Bedside Commode (Bedside Commode) 1 Mis Mis EA .ROUTE DIRECTED, #1 Cefepime Inj (Cefepime Inj) 1 Gm/50 Ml Bagp 1 GM IV Q24H for Pseudomonas osteomyelitis foot for 12 Days, BAG 0 Refills Epinephrine Inj (Epinephrine Inj) 1 Mg/Ml (1 Ml) Inj 0.3 MG IV PUSH ONCE PRN for ALLERGIC REACTION, #1 VIAL Epinephrine Inj (Epinephrine Inj) 1 Mg/Ml (1 Ml) Inj 0.3 MG SQ ONCE PRN for ALLERGIC REACTION, #1 VIAL Give with any signs of respiratory distress. Famotidine (Famotidine) 10 Mg Tab 10 MG PO BID for Reflux, #60 TAB 0 Refills Hydrocortisone Inj (Solu-Cortef Inj) 250 Mg/2 Ml Inj 250 MG IV PUSH ONCE PRN for ALLERGIC REACTION, #1 VIAL 0 Refills Give over 30-60 seconds. Insulin Aspart Inj (Novolog Inj) 1,000 Unit/10 Ml Vial 1-9 UNITS SQ ACHS for Blood Sugar Management for 30 Days, #10 ML 0 Refills Max dose at bedtime:( )units; sugars less than 70,(0)units; sugars 150-199,(1) unit; sugars 200-249,(3) units; sugars 250-299,(5) units; sugars 300-349,(7) units; sugars greater than 349,(9) units Amlodipine (Norvasc) 5 Mg Tab 5 MG PO DAILY for Blood Pressure Management, #30 TAB 3 Refills Cholecalciferol (Vitamin D3) 5,000 Unit Cap 5000 UNITS PO DAILY for Vitamins, #30 CAP Clonidine (Catapres) 0.1 Mg Tab 0.1 MG PO Q8HR for Blood Pressure Management, #60 TAB Ipratropium Neb (Ipratropium Neb) 0.5 Mg/2.5 Ml Amp 0.5 MG NEB Q4HR NEB PRN for wheezing for 30 Days, #30 ML Metoprolol Tartrate (Metoprolol Tartrate) 25 Mg Tab 50 MG PO DAILY for Blood Pressure Management, #30 TAB Continued Medications: Dorzolamide Opth Drops (Dorzolamide Opth Drops) 2% Soln 1 DROP EACH EYE BID for Glaucoma, #1 BOTTLE 0 Refills Fluorometholone Opth Drops (Flarex Opth Drops) 0.1% Susp 1 DROP EACH EYE BID for Inflammation, BOTTLE 0 Refills Hydralazine (Hydralazine) 100 Mg Tab 100 MG PO TID for Blood Pressure Management, TAB 0 Refills Take with meals Lactobacillus Acidophilus (Lactobacillus Acidophilus) 1 Billion Cell Tab 1 TAB PO TIDAC for Nutritional Supplement, #30 TAB 0 Refills Loratadine (Claritin) 10 Mg Cap 10 MG PO DAILY for Allergy Management, CAP 0 Refills Montelukast (Singulair) 10 Mg Tab 10 MG PO HS, #30 TAB 0 Refills Polyethylene Glycol 3350 Powder (Polyethylene Glycol 3350 Powder) 17 Gram Pow 17 GM PO DAILY for Constipation, #1 BOTTLE 0 Refills Pravastatin (Pravastatin) 40 Mg Tab 40 MG PO DAILY for Cholesterol Management, #30 TAB 0 Refills Discontinued Medications: Albuterol Neb (Albuterol Neb) 2.5 Mg/3 Ml Neb 2.5 MG NEB ONCE for Shortness Of Breath, #1 NEBULE 0 Refills Amitriptyline (Amitriptyline) 50 Mg Tab 50 MG PO HS, TAB Apixaban (Eliquis) 2.5 Mg Tab 2.5 MG PO BID for Blood Clot Prevention, TAB 0 Refills Ascorbic Acid (Vitamin C) 250 Mg Chew 250 MG CHEW BID for Nutritional Supplement, #60 TAB 0 Refills Fluconazole (Diflucan) 100 Mg Tab 100 MG PO ONCE for Infection, #1 TAB 0 Refills Gabapentin (Gabapentin) 600 Mg Tab 600 MG PO BID, #60 TAB 0 Refills Insulin Aspart Inj (Novolog Inj) 1,000 Unit/10 Ml Vial 0 SQ DIRECTED for Blood Sugar Management, #10 ML 0 Refills Sliding Scale as directed. Insulin Glargine Inj (Lantus Inj) 1,000 Unit/10 Ml Vial 20 UNITS SQ AC BREAKFAST for Blood Sugar Management, VIAL 0 Refills Insulin Glargine Inj (Lantus Inj) 1,000 Unit/10 Ml Vial 25 UNITS SQ HS for Blood Sugar Management, VIAL 0 Refills Labetalol (Labetalol) 200 Mg Tab 200 MG PO TID for Blood Pressure Management, TAB 0 Refills Nifedipine ER 24 HR (Procardia XL) 60 Mg Tab 60 MG PO TID, #30 TAB 0 Refills Nystatin Topical (Nystatin Topical) 100,000 unit/gm Cream 1 APPLIC TOPICAL BID for Infection, #15 GM 0 Refills Kassie Alcantar DO Nov 16, 2016 10:09
[2016-11-16] MEDS ORDERED: FAMO1TAB30 PO (10:10)
[2016-11-16] MEDS: LACTOBACILLUS ACIDOPHILUS TAB PO SCH ×3 (10:17→17:20)
[2016-11-16] MEDS: THIAMINE HCL 100 MG TAB PO SCH (10:17)
[2016-11-16] MEDS: LORATADINE 10 MG TAB PO SCH (10:17)
[2016-11-16] MEDS: DOCUSATE SODIUM 50 MG/SENNA 8.6 MG TAB PO SCH ×2 (10:17→21:29)
[2016-11-16] MEDS: NIFEdipine 60 MG SUSTAINED RELEASE TAB PO SCH ×2 (10:18→21:37)
[2016-11-16] MEDS: METOPROLOL TARTRATE 25 MG TAB PO SCH (10:18)
[2016-11-16] MEDS: CHOLECALCIFEROL (VIT D3) 5000 UNIT CAP PO SCH (10:18)
[2016-11-16] MEDS: FAMOTIDINE 20 MG TAB PO SCH ×2 (10:18→21:29)
[2016-11-16] MEDS: HEPARIN SODIUM - SQ 10,000 UNITS/ML VIAL SQ SCH ×2 (10:18→21:30)
[2016-11-16] MEDS: amLODIPine BESYLATE 5 MG TAB PO SCH (10:18)
[2016-11-16] MEDS: FLUOROMETHOLONE 0.1% OPHT SUSP 5 ML BTL EACH EYE SCH ×2 (10:19→21:30)
[2016-11-16] MEDS: DORZOLAMIDE 2% OPTH SOLN 200 DROP/10 ML BTLO EACH EYE SCH ×2 (10:19→21:30)
[2016-11-16] MEDS: LACTIC ACID (AMMONIUM LACTATE) 12% LOTION 225 GM BTL TOPICAL SCH ×2 (10:19→21:00)
[2016-11-16] MEDS: SODIUM CHLORIDE 0.9% FLUSH 10 ML FLUSH IV FLUSH SCH ×2 (10:19→21:00)
[2016-11-16 12:00] VITALS: BP_SYST 153; BP_SYST 161; BP_DIAS 106; BP_DIAS 80; PULSE 76; PULSE 77; RESP 18; TEMP 97.2; TEMP 98; O2SAT 95; O2SAT 97
[2016-11-16] MEDS: hydrOXYzine HCL 25 MG TAB PO PRN ×2 (13:34→21:37)
[2016-11-16] MEDS: CEFEPIME INJ 1,000 MG in SODIUM CHLORIDE 0.9% INJ 100 ML IV SCH (13:35)
[2016-11-16 16:00] VITALS: BP 182/86; PULSE 79; RESP 16; TEMP 98; O2SAT 97
[2016-11-16] MEDS: cloNIDine HCL 0.1 MG TAB PO PRN (17:20)
[2016-11-16 20:00] VITALS: PULSE 77
[2016-11-16 20:54] VITALS: BP 161/74; PULSE 76; RESP 18; TEMP 98.1; O2SAT 97
[2016-11-17 00:48] VITALS: BP_SYST 148; BP_SYST 183; BP_DIAS 72; BP_DIAS 81; PULSE 79; RESP 18; TEMP 98; O2SAT 97
[2016-11-17 05:12] VITALS: BP 174/80; PULSE 79; RESP 18; TEMP 98.1; O2SAT 97
[2016-11-17] MEDS: cloNIDine HCL 0.1 MG TAB PO SCH ×2 (05:26→12:55)
[2016-11-17] MEDS: INSULIN NovoLIN REGULAR SUPPLEMENTAL SCALE SQ SCH ×3 (05:26→17:10)
[2016-11-17] MEDS: hydrALAZINE HCL 100 MG TAB PO SCH ×2 (05:26→12:55)
[2016-11-17] MEDS: hydrOXYzine HCL 25 MG TAB PO PRN ×2 (05:26→14:52)
[2016-11-17 06:06] LABS: BICARBONATE 22.2 MEQ/L (21.0-32.0); POTASSIUM 3.5 MEQ/L (3.5-5.1)
[2016-11-17 07:00] VITALS: BP 158/77; PULSE 81; RESP 16; TEMP 97.6; O2SAT 98
[2016-11-17 08:00] VITALS: PULSE 82
[2016-11-17] MEDS: CHLORHEXIDINE 0.12% (ORAL KIT) 15 ML CUP MT SCH (08:00)
[2016-11-17] MEDS: HEPARIN SODIUM - SQ 10,000 UNITS/ML VIAL SQ SCH (09:10)
[2016-11-17] MEDS: CHOLECALCIFEROL (VIT D3) 5000 UNIT CAP PO SCH (09:10)
[2016-11-17] MEDS: METOPROLOL TARTRATE 25 MG TAB PO SCH (09:10)
[2016-11-17] MEDS: LORATADINE 10 MG TAB PO SCH (09:11)
[2016-11-17] MEDS: LACTOBACILLUS ACIDOPHILUS TAB PO SCH ×3 (09:11→17:10)
[2016-11-17] MEDS: LACTIC ACID (AMMONIUM LACTATE) 12% LOTION 225 GM BTL TOPICAL SCH (09:11)
[2016-11-17] MEDS: amLODIPine BESYLATE 5 MG TAB PO SCH (09:11)
[2016-11-17] MEDS: NIFEdipine 60 MG SUSTAINED RELEASE TAB PO SCH (09:11)
[2016-11-17] MEDS: FAMOTIDINE 20 MG TAB PO SCH (09:11)
[2016-11-17] MEDS: DOCUSATE SODIUM 50 MG/SENNA 8.6 MG TAB PO SCH (09:11)
[2016-11-17] MEDS: SODIUM CHLORIDE 0.9% FLUSH 10 ML FLUSH IV FLUSH SCH (09:11)
[2016-11-17] MEDS: THIAMINE HCL 100 MG TAB PO SCH (09:11)
[2016-11-17] MEDS: DORZOLAMIDE 2% OPTH SOLN 200 DROP/10 ML BTLO EACH EYE SCH (09:12)
[2016-11-17] MEDS: FLUOROMETHOLONE 0.1% OPHT SUSP 5 ML BTL EACH EYE SCH (09:12)
--- NOTE | 2016-11-17 09:37 | HHI.NPPN ---
Subjective General Problems: Anemia, Hypertension Renal Failure: Acute Interval History She has a discharge order and accepting SNF however is refusing transfer. No definitive discharge arrangements. Her renal function is improving. (Lizy Pineda) Review of Systems General Constitutional: Fatigue (Lizy Pineda) Eyes Eyes: Itching (Lizy Pineda) Ears, Nose, & Throat ENT Remarks loss of appetite (Lizy Pineda) Endocrine Endocrine: Thirst (Lizy Pineda) Skin Skin: Skin Rash, Ulcers Skin Remarks generalized rash with peeling skin; ulcer planter surface left foot (Lizy Pineda) Objective Data Data Vital Signs Date Time Temp Pulse Resp B/P (MAP) Pulse Ox O2 Delivery O2 Flow Rate FiO2 11/17/16 07:00 97.6 81 16 158/77 (104) 98 11/17/16 05:12 98.1 79 18 174/80 (111) 97 11/17/16 00:48 98.0 79 18 183/81 (115) 97 148/72 (97) 11/16/16 21:25 Room Air 11/16/16 20:54 98.1 76 18 161/74 (103) 97 11/16/16 20:00 77 11/16/16 16:00 98.0 79 16 182/86 (118) 97 11/16/16 12:00 97.2 76 18 161/80 (107) 95 (Lizy Pineda) -: 11/13/16 1120 11/17/16 0424 Physical Exam General Appearance: Well Developed, Well Nourished, No Acute Distress, Comfortable, Obese (Lizy Pineda) Eyes Eye Exam: Pupils Equal, Pupils Reactive (Lizy Pineda) Throat Throat Exam: Oral Mucosa [place] & Moist (Lizy Pineda) Neck Neck Exam: Neck Supple (Lizy Pineda) Pulmonary Resp Exam: Clear Bilaterally, Breath Sounds Equal, No Distress, Decreased Bases (Lizy Pineda) Cardiology CV Exam: Regular, Normal Sinus Rhythm, Good Perfusion (Lizy Pineda) Gastrointestinal/Abdomen GI Exam: Soft, Non-Tender, Bowel Sounds Present (Lizy Pineda) Musculoskeletal MS Exam: Joints Intact, Normal Tone, Unable to Ambulate (Lizy Pineda) Integumentary Skin Exam: Warm, Dry, Intact Skin Remarks left foot ulcer, healing (Lizy Pineda) Extremeties Extremities Exam: Pedal Pulses Palpable, Trace Edema (Lizy Pineda) Neurologic Neuro Exam: Alert, Awake, Oriented, Speech Clear, Moving All Extremities (Lizy Pineda) Psychiatric Psych Exam: Appropriate Responses (Lizy Pineda) Assessment/Plan Discussed Condition With: Patient Assessment Summary: FREDI/Acute Renal Failure Problem List: (1) Acute renal failure ICD Codes: N17.9 - Acute kidney failure, unspecified Status: Acute Plan: She apparently has a baseline creatinine of 1mg/dL FREDI 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 HD initiated on 10/13/16, last HD 11/03. Renal function is improving slowly. continue to monitor labs while admitted Avoid nephrotoxic agents. Avoid IVF. Continue to encourage PO intake. (2) Sepsis ICD Codes: A41.9 - Sepsis, unspecified organism Plan: + Pseudomonas in the blood, and gram stain of the wound. Currently on Cefepime until 11/29 Midline placement done (3) Metabolic acidosis ICD Codes: E87.2 - Acidosis Status: Acute Plan: Corrected, monitor (4) Anemia ICD Codes: D64.9 - Anemia Status: Acute Plan: Hb improved, monitor (5) Vitamin D deficiency ICD Codes: E55.9 - Vitamin D deficiency, unspecified Plan: replacement ordered (6) Itching ICD Codes: L29.9 - Pruritus, unspecified Plan: on Benadryl cream also Vistaril PRN with daily Claritin (7) HTN (hypertension) ICD Codes: I10 - Hypertension Status: Chronic Plan: BP control is better continue ordered medications. Plan Cleared for dishcharge from renal perspective. We will follow in CKD clinic. (Lizy Pineda) Problem List: (1) Acute renal failure ICD Codes: N17.9 - Acute kidney failure, unspecified Status: Acute Plan: She apparently has a baseline creatinine of 1mg/dL FREDI 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 HD initiated on 10/13/16, last HD 11/03. Renal function is improving slowly. continue to monitor labs while admitted Avoid nephrotoxic agents. Avoid IVF. Continue to encourage PO intake. (2) Sepsis ICD Codes: A41.9 - Sepsis, unspecified organism Plan: + Pseudomonas in the blood, and gram stain of the wound. Currently on Cefepime until 11/29 Midline placement done (3) Metabolic acidosis ICD Codes: E87.2 - Acidosis Status: Acute Plan: Corrected, monitor (4) Anemia ICD Codes: D64.9 - Anemia Status: Acute Plan: Hb improved, monitor (5) Vitamin D deficiency ICD Codes: E55.9 - Vitamin D deficiency, unspecified Plan: replacement ordered (6) Itching ICD Codes: L29.9 - Pruritus, unspecified Plan: on Benadryl cream also Vistaril PRN with daily Claritin (7) HTN (hypertension) ICD Codes: I10 - Hypertension Status: Chronic Plan: BP control is better continue ordered medications. Plan patient was seen and examined. Renal function is better. BP control is better as well. She can be discharged from renal standpoint. (Francisco Javier Quiros MD) Problem Qualifiers (1) Acute renal failure: Qualified Codes: N17.9 - Acute kidney failure, unspecified (2) Anemia: Qualified Codes: D64.9 - Anemia, unspecified Lizy Pineda Nov 17, 2016 09:37 Francisco Javier Quiros MD Nov 17, 2016 16:51
[2016-11-17] MEDS ORDERED: METO25TA3 PO (10:39)
--- NOTE | 2016-11-17 10:41 | HHI.FF ---
Face to Face Verification Diagnosis: (1) Osteomyelitis of ankle or foot, left, acute (2) Diabetic neuropathy (3) HTN (hypertension) (4) Diabetes mellitus type 2, uncontrolled Physical Therapy Order: Evaluate and Treat, Improve ambulation, Strength and gait training Home Health Nursing Order: Medical education Signs/symptoms of disease process Diabetic education Medication education-adverse effect Wound care and dressing changes Nursing assessment with vital signs IV medication administration I have seen patient Brionna Zheng on 11/17/16. My clinical findings support the need for the requested home health care services because: Ltd mobility - disease progression Deconditioned w/ increased weakness Limited ability to care for self Need for psychosocial assistance Impaired cognition/judgement High risk of falls Infection w/ risk of complications I certify that my clinical findings support that this patient is homebound because: Unsteady gait/balance Unsafe to leave home unassisted Need for psychosocial assistance [id number] bed/chair Unable to use public transportation Kassie Alcantar DO Nov 17, 2016 10:41
[2016-11-17] MEDS ORDERED: CLON.1 PO (10:48)
[2016-11-17] MEDS ORDERED: IPRA0.02 NEB (10:48)
[2016-11-17] MEDS ORDERED: NOVOLOGP2 SQ (10:48)
[2016-11-17] MEDS ORDERED: FAMO1TAB30 PO (10:48)
[2016-11-17] MEDS ORDERED: EPIN1INJ21 IV PUSH (10:48)
[2016-11-17] MEDS ORDERED: CHOL5000 PO (10:48)
[2016-11-17] MEDS ORDERED: EPIN1INJ21 SQ (10:48)
[2016-11-17] MEDS ORDERED: CEFE1INJ2 IV (10:48)
[2016-11-17] MEDS ORDERED: SOLU250I IV PUSH (10:48)
[2016-11-17] MEDS ORDERED: AMLO5 PO (10:48)
[2016-11-17] MEDS: CEFEPIME INJ 1,000 MG in SODIUM CHLORIDE 0.9% INJ 100 ML IV SCH (14:55)
[2016-11-17 16:12] VITALS: BP 183/96; PULSE 77; RESP 20; TEMP 97.3; O2SAT 97
[2016-11-17] MEDS: cloNIDine HCL 0.1 MG TAB PO PRN (17:10)
--- NOTE | 2016-11-17 17:10 | HHI.PR ---
Subjective Remarks Follow up for pseudomonas bacteremia, acute kidney injury. Objective Vitals Vital Signs Date Time Temp Pulse Resp B/P (MAP) Pulse Ox O2 Delivery O2 Flow Rate FiO2 11/17/16 16:12 97.3 77 20 183/96 (125) 97 11/17/16 08:00 82 11/17/16 08:00 Room Air 11/17/16 07:00 97.6 81 16 158/77 (104) 98 11/17/16 05:12 98.1 79 18 174/80 (111) 97 11/17/16 00:48 98.0 79 18 183/81 (115) 97 148/72 (97) 11/16/16 21:25 Room Air 11/16/16 20:54 98.1 76 18 161/74 (103) 97 11/16/16 20:00 77 I/O 11/16/16 11/16/16 11/16/16 11/17/16 11/17/16 11/17/16 07:00 15:00 23:00 07:00 15:00 23:00 Intake Total 720 ml 120 ml Output Total 650 ml 300 ml Balance 70 ml -180 ml Intake Oral 720 ml 120 ml Output Urine Total 650 ml 300 ml # Bowel Movements 0 Result Diagram: 11/13/16 1120 11/17/16 0424 Objective Remarks GENERAL: Alert, NAD. Morbidly obese. SKIN: Warm and dry. HEAD: Normocephalic. EYES: No scleral icterus. No injection or drainage. NECK: Supple, trachea midline. No JVD or lymphadenopathy. CARDIOVASCULAR: Regular rate and rhythm without murmurs, gallops, or rubs. RESPIRATORY: Breath sounds equal bilaterally. No accessory muscle use. GASTROINTESTINAL: Abdomen soft, non-tender, nondistended. MUSCULOSKELETAL: No cyanosis, or edema. BACK: Nontender without obvious deformity. No CVA tenderness. Procedures Intubation. 10/13/2016 [place] The left ventricular systolic function is normal with an estimated ejection fraction in the range of 60-65%. The right ventricular systoilc function is moderately decreased. There is severe tricuspid regurgitation. There is estimated [id number] pulmonary hypertension present (range 60- 70 mmHg). Appears to be a prominent papillary muscle in the short axis view, does not appear to be a vegetation as it has no extra-cardiac motion (also noted in the long axis). A/P Problem List: (1) Acute renal failure ICD Code: N17.9 - Acute kidney failure, unspecified Status: Acute (2) Hyperkalemia ICD Code: E87.5 - Hyperkalemia Status: Acute (3) HTN (hypertension) ICD Code: I10 - Hypertension Status: Chronic (4) Diabetes mellitus type 2, uncontrolled ICD Code: E11.65 - Uncontrolled type 2 diabetes mellitus Status: Chronic Assessment and Plan This is a 51yF from a SNF who was being treated for chronic LLE cellulitis with approximately 6 months of vancomycin through an indwelling right arm PICC line, who presents with worsening creatinine found at her SNF and altered mental status. On arrival to the ED, she had a Cr 7.7, has a chronic indwelling black catheter and has not had any urine per report in the last few days. Renal ultrasound was negative for hydronephrosis. She also has a excoriating rash over her trunk and arms. She was initially admitted to the floor, but rapid responsed for hypotension and altered mental status. Patient was intubated and required pressors. She was extubated. However, she became unresponsive again on 10/18/2016 and a stroke alert was called. After CT head showed no acute bleed, patient underwent MRI studies and neurologist recommended tPA administration. Patient was extubated on 10/19/2016. Detail ICU course is outlined in the last ICU note on 10/20/2016. - Stroke alert 10/18/2016 - Suspected use of benzodiazepine - metabolic encephalopathy due to sepsis, uremia - Patient received tPA on 10/18/2016 per neurology recommendations. - MRI studies negative for stroke. - Currently, patient is at her baseline. - Acute respiratory failure - hypoxic, hypercarbic. - Obesity hypoventilation syndrome. - Intubated twice in the ICU. Currently on nasal cannula. - Acute kidney injury - Patient required hemodialysis. Currently off dialysis. - Per nephrology, no indication for dialysis at this point. - Creatinine 4.3 --> 4.63 --> 4.43. - Waiting for insurance approval for SNF placement. - Acute osteomyelitis of the left lower ext - Pseudomonas bacteremia - Probable PICC line infection - Currently Cefepime 1g Q24hrs. - On 11/13/2016, infectious disease recommended 14 more days of cefepime 1 g IV daily. - Hypertension - Continue Clonidine 0.1mg Q8hrs, Hydralazine 100mg Q8hrs, Nifedipine 60mg Q12hrs. Full code. Heparin SQ. Problem Qualifiers (1) Acute renal failure: Qualified Codes: N17.9 - Acute kidney failure, unspecified Kassie Alcantar DO Nov 17, 2016 17:10
--- NOTE | 2016-11-17 17:10 | HHI.PR ---
Subjective Remarks Delayed entry for 11/16/2016. Follow up for pseudomonas bacteremia, acute kidney injury. Patient is doing well. No acute concerns. Objective Vitals Vital Signs Date Time Temp Pulse Resp B/P (MAP) Pulse Ox O2 Delivery O2 Flow Rate FiO2 11/17/16 16:12 97.3 77 20 183/96 (125) 97 11/17/16 08:00 82 11/17/16 08:00 Room Air 11/17/16 07:00 97.6 81 16 158/77 (104) 98 11/17/16 05:12 98.1 79 18 174/80 (111) 97 11/17/16 00:48 98.0 79 18 183/81 (115) 97 148/72 (97) 11/16/16 21:25 Room Air 11/16/16 20:54 98.1 76 18 161/74 (103) 97 11/16/16 20:00 77 I/O 11/16/16 11/16/16 11/16/16 11/17/16 11/17/16 11/17/16 07:00 15:00 23:00 07:00 15:00 23:00 Intake Total 720 ml 120 ml Output Total 650 ml 300 ml Balance 70 ml -180 ml Intake Oral 720 ml 120 ml Output Urine Total 650 ml 300 ml # Bowel Movements 0 Result Diagram: 11/13/16 1120 11/17/16 0424 Objective Remarks GENERAL: Alert, NAD. Morbidly obese. SKIN: Warm and dry. HEAD: Normocephalic. EYES: No scleral icterus. No injection or drainage. NECK: Supple, trachea midline. No JVD or lymphadenopathy. CARDIOVASCULAR: Regular rate and rhythm without murmurs, gallops, or rubs. RESPIRATORY: Breath sounds equal bilaterally. No accessory muscle use. GASTROINTESTINAL: Abdomen soft, non-tender, nondistended. MUSCULOSKELETAL: No cyanosis, or edema. BACK: Nontender without obvious deformity. No CVA tenderness. Procedures Intubation. 10/13/2016 [place] The left ventricular systolic function is normal with an estimated ejection fraction in the range of 60-65%. The right ventricular systoilc function is moderately decreased. There is severe tricuspid regurgitation. There is estimated fwrtzuyf-zf-njanhu pulmonary hypertension present (range 60- 70 mmHg). Appears to be a prominent papillary muscle in the short axis view, does not appear to be a vegetation as it has no extra-cardiac motion (also noted in the long axis). A/P Problem List: (1) Acute renal failure ICD Code: N17.9 - Acute kidney failure, unspecified Status: Acute (2) Hyperkalemia ICD Code: E87.5 - Hyperkalemia Status: Acute (3) HTN (hypertension) ICD Code: I10 - Hypertension Status: Chronic (4) Diabetes mellitus type 2, uncontrolled ICD Code: E11.65 - Uncontrolled type 2 diabetes mellitus Status: Chronic Assessment and Plan This is a 51yF from a SNF who was being treated for chronic LLE cellulitis with approximately 6 months of vancomycin through an indwelling right arm PICC line, who presents with worsening creatinine found at her SNF and altered mental status. On arrival to the ED, she had a Cr 7.7, has a chronic indwelling black catheter and has not had any urine per report in the last few days. Renal ultrasound was negative for hydronephrosis. She also has a excoriating rash over her trunk and arms. She was initially admitted to the floor, but rapid responsed for hypotension and altered mental status. Patient was intubated and required pressors. She was extubated. However, she became unresponsive again on 10/18/2016 and a stroke alert was called. After CT head showed no acute bleed, patient underwent MRI studies and neurologist recommended tPA administration. Patient was extubated on 10/19/2016. Detail ICU course is outlined in the last ICU note on 10/20/2016. - Stroke alert 10/18/2016 - Suspected use of benzodiazepine - metabolic encephalopathy due to sepsis, uremia - Patient received tPA on 10/18/2016 per neurology recommendations. - MRI studies negative for stroke. - Currently, patient is at her baseline. - Acute respiratory failure - hypoxic, hypercarbic. - Obesity hypoventilation syndrome. - Intubated twice in the ICU. Currently on nasal cannula. - Acute kidney injury - Patient required hemodialysis. Currently off dialysis. - Per nephrology, no indication for dialysis at this point. - Creatinine 4.3 --> 4.63 --> 4.43. - SNF approved. Patient was supposed to be discharged to [facility]. Patient refused. - Acute osteomyelitis of the left lower ext - Pseudomonas bacteremia - Probable PICC line infection - Currently Cefepime 1g Q24hrs. - On 11/13/2016, infectious disease recommended 14 more days of cefepime 1 g IV daily. - Hypertension - Continue Clonidine 0.1mg Q8hrs, Hydralazine 100mg Q8hrs, Nifedipine 60mg Q12hrs. Full code. Heparin SQ. Patient was discharged home with home health on 11/17/2016. Problem Qualifiers (1) Acute renal failure: Qualified Codes: N17.9 - Acute kidney failure, unspecified Kassie Alcantar DO Nov 17, 2016 17:10
[2016-11-17] MEDS ORDERED: BEDSIDE COMMODE1 MI1 (17:22)
== END 2016-11-17 19:20 | disposition home health service (06) | DRG 314 ==
LOC: NEPE 17:29 → NEDA 20:13 → N07A 10-13 01:00 → N03A 10-13 04:50 → HCIS 10-20 14:09 → N04A 10-24 22:16
PROVIDERS: ADMIT Hospitalist; ATTEND Hospitalist
PROC: 03HY32Z Insertion of Monitoring Device into Upper Artery, Percutaneous Approach (ICD-10-PCS; principal; 2016-10-13)
PROC: 4A133B1 Monitoring of Arterial Pressure, Peripheral, Percutaneous Approach (ICD-10-PCS; 2016-10-13)
PROC: 4A133J1 Monitoring of Arterial Pulse, Peripheral, Percutaneous Approach (ICD-10-PCS; 2016-10-13)
PROC: B246ZZ4 Ultrasonography of Right and Left Heart, Transesophageal (ICD-10-PCS; 2016-10-13)
PROC: 0BH17EZ Insertion of Endotracheal Airway into Trachea, Via Natural or Artificial Opening (ICD-10-PCS; 2016-10-13)
PROC: 5A1D70Z Performance of Urinary Filtration, Intermittent, Less than 6 Hours Per Day (ICD-10-PCS; 2016-10-13)
PROC: 02HV33Z Insertion of Infusion Device into Superior Vena Cava, Percutaneous Approach (ICD-10-PCS; 2016-10-13)
PROC: 05H633Z Insertion of Infusion Device into Left Subclavian Vein, Percutaneous Approach (ICD-10-PCS; 2016-10-13)
PROC: B544ZZA Ultrasonography of Left Jugular Veins, Guidance (ICD-10-PCS; 2016-10-13)
PROC: 5A1935Z Respiratory Ventilation, Less than 24 Consecutive Hours (ICD-10-PCS; 2016-10-18)
PROC: 5A1945Z Respiratory Ventilation, 24-96 Consecutive Hours (ICD-10-PCS; 2016-10-18)
PROC: 0BH17EZ Insertion of Endotracheal Airway into Trachea, Via Natural or Artificial Opening (ICD-10-PCS; 2016-10-18)
PROC: 0CJS8ZZ Inspection of Larynx, Via Natural or Artificial Opening Endoscopic (ICD-10-PCS; 2016-10-18)
PROC: 3E03317 Introduction of Other Thrombolytic into Peripheral Vein, Percutaneous Approach (ICD-10-PCS; 2016-10-18)
PROC: 30243N1 Transfusion of Nonautologous Red Blood Cells into Central Vein, Percutaneous Approach (ICD-10-PCS; 2016-10-19)
DX: T80.211A Bloodstream infection due to central venous catheter, initial encounter (principal); A41.52 Sepsis due to Pseudomonas; N17.0 Acute kidney failure with tubular necrosis; R65.21 Severe sepsis with septic shock; J96.01 Acute respiratory failure with hypoxia; J96.02 Acute respiratory failure with hypercapnia; G93.41 Metabolic encephalopathy; M86.172 Other acute osteomyelitis, left ankle and foot; I48.91 Unspecified atrial fibrillation; B37.49 Other urogenital candidiasis; L03.116 Cellulitis of left lower limb; E87.2 Acidosis; I13.2 Hypertensive heart and chronic kidney disease with heart failure and with stage 5 chronic kidney disease, or end stage renal disease; Z68.43 Body mass index [BMI] 50.0-59.9, adult; E66.2 Morbid (severe) obesity with alveolar hypoventilation; L03.90 Cellulitis, unspecified; T85.79XA Infection and inflammatory reaction due to other internal prosthetic devices, implants and grafts, initial encounter; I50.32 Chronic diastolic (congestive) heart failure; I47.2 Ventricular tachycardia; Z68.41 Body mass index [BMI] 40.0-44.9, adult; E86.0 Dehydration; E11.65 Type 2 diabetes mellitus with hyperglycemia; E87.5 Hyperkalemia; H54.8 Legal blindness, as defined in USA; I07.1 Rheumatic tricuspid insufficiency; J44.9 Chronic obstructive pulmonary disease, unspecified; E11.40 Type 2 diabetes mellitus with diabetic neuropathy, unspecified; E11.21 Type 2 diabetes mellitus with diabetic nephropathy; E11.319 Type 2 diabetes mellitus with unspecified diabetic retinopathy without macular edema; E11.621 Type 2 diabetes mellitus with foot ulcer; L97.529 Non-pressure chronic ulcer of other part of left foot with unspecified severity; R19.7 Diarrhea, unspecified; E55.9 Vitamin D deficiency, unspecified; K21.9 Gastro-esophageal reflux disease without esophagitis; I27.20 Pulmonary hypertension, unspecified; E78.5 Hyperlipidemia, unspecified; E87.6 Hypokalemia; D63.8 Anemia in other chronic diseases classified elsewhere; L27.0 Generalized skin eruption due to drugs and medicaments taken internally; T36.8X5A Adverse effect of other systemic antibiotics, initial encounter; T42.4X1A Poisoning by benzodiazepines, accidental (unintentional), initial encounter; Y92.230 Patient room in hospital as the place of occurrence of the external cause; Y84.8 Other medical procedures as the cause of abnormal reaction of the patient, or of later complication, without mention of misadventure at the time of the procedure; Z79.4 Long term (current) use of insulin; Z86.73 Personal history of transient ischemic attack (TIA), and cerebral infarction without residual deficits; Z86.711 Personal history of pulmonary embolism; Z88.1 Allergy status to other antibiotic agents; Z88.5 Allergy status to narcotic agent; Z91.19 Patient's noncompliance with other medical treatment and regimen
CPT/HCPCS: 31500; 36430; 36556; 36569; 36600; 51702; 70450; 70544; 70551; 71010; 71250; 73600; 73700; 74150; 76705; 76775; 76937; 80048; 80053; 80069; 80074; 80076; 80202; 80307; 81001; 82010; 82306; 82435; 82550; 82552; 82565; 82570; 82607; 82652; 82805; 82947; 82948; 83605; 83735; 84080; 84100; 84132; 84155; 84295; 84300; 84484; 84520; 85007; 85025; 85027; 85610; 85730; 86140; 86403; 86703; 86850; 86900; 86901; 86920; 87040; 87070; 87071; 87077; 87081; 87086; 87102; 87186; 87205; 90935; 93005; 93306; 93312; 93320; 93325; 93970; 94002; 94003; 94150; 94640; 96360; 96374; 96375; J0171; J0360; J0461; J0610; J0692; J0878; J1100; J1580; J1644; J1815; J2248; J2250; J2543; J2997; J7030; J7060; J7644; L1906; P9016; P9047; Q0163

== ENCOUNTER 2017-01-01 10:23 | Inpatient (IN) | payer OTHER ==
[2017-01-01] VITALS (12 sets, daily range): BP systolic 94–141; BP diastolic 56–91; PULSE 81–108; RESP 18–24; TEMP 98–102.2; O2SAT 95–100
[~2017-01-01] VITALS: Ht 172.7 cm; Wt 94.9 kg
[~2017-01-01 10:23] MED LIST changes: -ACET325 PO; -AMIT50 PO; +AMLO5 PO; -APIX5TAB PO; +BEDSIDE COMMODE1 MI1; -BISA PO; -BRIM0.2S EACH EYE; +CEFE1INJ2 IV; +CHOL5000 PO; +CLAR10CA3 PO; -CLEAPOW6 PO; +CLON.1 PO; -COLL30OI3 TOP; +DORZ2SOL EACH EYE; -DORZO2%O EACH EYE; +EPIN1INJ21 IV PUSH; +EPIN1INJ21 SQ; +FAMO1TAB30 PO; +FLAR0.1S EACH EYE; -GABA600T PO; -GLUC1KIT IM; -GLUC40GE PO; +HYDR-3801 PO; -HYDR50TA15 PO; +IPRA0.02 NEB; -LACT10SO47 PO; +LACTTAB8 PO; -LANTUS2P SQ; -LISI-363 PO; -METO25 PO; +METO25TA3 PO; -NITR0.4S SL; +POLY17S PO; -PRIL20CA PO; +SOLU250I IV PUSH
[2017-01-01] MEDS ORDERED: PIPERACIL-TAZO 2.25 GM PREMIX 50 ML IV ONE (11:00)
--- NOTE | 2017-01-01 11:07 | PD ---
HPI Chief Complaint: Fever Time Seen by Provider: 10:53 Travel History International Travel<30 days: No Contact w/Intl Traveler<30days: No Traveled to known affect area: No History of Present Illness HPI SENT FROM [facility] BE[facility]USE OF FEVER AND "FOUL SMELLING URINE" PER PATIENT C/O GENERALIZED WEAKNESS ALONG WITH THIS FEVER OVER THE LAST 3 DAYS OR SO.....BUT DENIES ANY SANTILLAN/CP/ABDPAIN/N/V/D/....DENIES ANY ALLEVIATING OR AGGRAVATING FACTORS PFSH Past Medical History Hx Anticoagulant Therapy: Yes Arthritis: Yes Asthma: No Autoimmune Disease: No Anxiety: No Heart Rhythm Problems: Yes (A-Fib) Cancer: No Cardiovascular Problems: Yes High Cholesterol: Yes Chemotherapy: No Chest Pain: No Congestive Heart Failure: Yes (recently noted with diastolic dysfunction) COPD: Yes Cerebrovascular Accident: Yes Diabetes: Yes Patient Takes Glucophage: No Dialysis: Yes (Tue,th,sat RT chest vascath) Diminished Hearing: No Endocrine: Yes Gastrointestinal Disorders: Yes (HX of previous GI bleed) GERD: Yes Genitourinary: No Headaches: No Hiatal Hernia: No Heparin Induced Thrombocytopen: No Hypertension: Yes Immune Disorder: No Implanted Vascular Access Dvce: Yes Kidney Stones: No Musculoskeletal: No Neurologic: Yes Psychiatric: No Reproductive: No Respiratory: Yes (previous PE) Immunizations Current: Yes Migraines: No Radiation Therapy: No Renal Failure: Yes (chronic renal insufficiency) Seizures: No Sickle Cell Disease: No Sleep Apnea: Yes (Non-compliant with CPAP) Thyroid Disease: No Ulcer: No ?: Not Past Surgical History Abdominal Surgery: No AICD: No Arteriovenous Shunt: No Cardiac Surgery: No Ear Surgery: No Endocrine Surgery: No Eye Surgery: Yes (cataracts, AUGUST 10) Genitourinary Surgery: No Gynecologic Surgery: No Hysterectomy: No Insulin Pump: No Joint Replacement: No Neurologic Surgery: No Oral Surgery: No Pacemaker: No Thoracic Surgery: No Other Surgery: Yes (recent right eye scraping) Social History Alcohol Use: No Tobacco Use: No Substance Use: No Allergies-Medications (Allergen,Severity, Reaction): Coded Allergies: fentanyl (Verified Allergy, Unknown, 10/25/16) morphine (Unverified Allergy, Unknown, 09/26/16) vancomycin (Verified Adverse Reaction, Severe, Rash, 9/5/17) Reported Meds & Prescriptions Reported Meds & Active Scripts Active Bedside Commode (Device) 1 Mis Mis Ea .ROUTE DIRECTED Famotidine 10 Mg Tab 10 Mg PO BID Novolog Inj (Insulin Aspart) 1,000 Unit/10 Ml Vial 1-9 Units SQ ACHS 30 Days Max dose at bedtime:( )units; sugars less than 70,(0)units; sugars 150-199,(1) unit; sugars 200-249,(3) units; sugars 250-299,(5) units; sugars 300-349,(7) units; sugars greater than 349,(9) units Catapres (Clonidine) 0.1 Mg Tab 0.1 Mg PO Q8HR Ipratropium Neb (Ipratropium Thurman) 0.5 Mg/2.5 Ml Amp 0.5 Mg NEB Q4HR NEB PRN 30 Days Vitamin D3 (Cholecalciferol) 5,000 Unit Cap 5,000 Units PO DAILY Norvasc (Amlodipine Besylate) 5 Mg Tab 5 Mg PO DAILY Solu-Cortef Inj (Hydrocortisone Sodium Succinate) 250 Mg/2 Ml Inj 250 Mg IV PUSH ONCE PRN Give over 30-60 seconds. Metoprolol Tartrate 25 Mg Tab 50 Mg PO DAILY Reported Flarex Opth Drops (Fluorometholone Acetate) 0.1% Susp 1 Drop EACH EYE BID Dorzolamide Opth Drops (Dorzolamide HCl) 2% Soln 1 Drop EACH EYE BID Hydralazine (Hydralazine HCl) 100 Mg Tab 100 Mg PO TID Take with meals Claritin (Loratadine) 10 Mg Cap 10 Mg PO DAILY Lactobacillus Acidophilus 1 Billion Cell Tab 1 Tab PO TIDAC Singulair (Montelukast Sodium) 10 Mg Tab 10 Mg PO HS Pravastatin 40 Mg Tab 40 Mg PO DAILY Polyethylene Glycol 3350 Powder (Polyethylene Glycol) 17 Gram Pow 17 Gm PO DAILY Review of Systems Except as stated in HPI: all other systems reviewed are Neg General / Constitutional: Positive: Fever Eyes: No: Visual changes HENT: No: Headaches Cardiovascular: No: Chest Pain or Discomfort Respiratory: No: Shortness of Breath Gastrointestinal: No: Abdominal Pain Genitourinary: Positive: Frequency Musculoskeletal: No: Pain Skin: No Rash Neurologic: No: Weakness Psychiatric: No: Depression Endocrine: No: Polydipsia Hematologic/Lymphatic: No: Easy Bruising Physical Exam Narrative GENERAL: SKIN: Warm and dry. HEAD: Atraumatic. Normocephalic. EYES: Pupils equal and round. No scleral icterus. No injection or drainage. ENT: No nasal bleeding or discharge. Mucous membranes pink and moist. NECK: Trachea midline. No JVD. CARDIOVASCULAR: Regular rate and rhythm. RESPIRATORY: No accessory muscle use. Clear to auscultation. Breath sounds equal bilaterally. GASTROINTESTINAL: Abdomen soft, non-tender, nondistended. MUSCULOSKELETAL: Extremities without clubbing, cyanosis, or edema. No obvious deformities. NEUROLOGICAL: Awake and alerT ABLE TO GIVE MEDICAL HISTORY THOUGH HAS BASELINE SLURRED speech. PSYCHIATRIC: Appropriate mood and affect; insight and judgment normal. Data Data Last Documented VS Vital Signs Date Time Temp Pulse Resp B/P (MAP) Pulse Ox O2 Delivery O2 Flow Rate FiO2 01/01/17 12:16 100.4 103 24 134/91 (105) 98 Nasal Cannula 2.00 Orders Orders Sepsis Workup Initiated (01/01/17 ) Complete Blood Count With Diff (01/01/17 10:51) Comprehensive Metabolic Panel (01/01/17 10:51) Prothrombin Time / Inr (Pt) (01/01/17 10:51) Act Partial Throm Time (Ptt) (01/01/17 10:51) Lactic Acid Sepsis Protocol (01/01/17 10:51) Lipase (01/01/17 10:51) Troponin I (01/01/17 10:51) Urinalysis - C+S If Indicated (01/01/17 10:51) Blood Culture (01/01/17 10:51) Chest, Single Ap (01/01/17 10:51) Blood Glucose (01/01/17 10:51) Ecg Monitoring (01/01/17 10:51) Iv Access Insert/Monitor (01/01/17 10:51) Oximetry (01/01/17 10:51) Oxygen Administration (01/01/17 10:51) Piperacil-Tazo 2.25 Gm Premix (Zosyn 2.2 (01/01/17 11:00) Electrocardiogram (01/01/17 10:46) Urine Culture (01/01/17 11:02) Acetaminophen (Tylenol) (01/01/17 12:45) Admit Order (Ed Use Only) (01/01/17 12:55) Labs Laboratory Tests Test 01/01/17 11:02 White Blood Count 14.3 TH/MM3 Red Blood Count 2.93 MIL/MM3 Hemoglobin 9.5 GM/DL Hematocrit 29.1 % Mean Corpuscular Volume 99.2 FL Mean Corpuscular Hemoglobin 32.4 PG Mean Corpuscular Hemoglobin Concent 32.6 % Red Cell Distribution Width 17.4 % Platelet Count 224 TH/MM3 Mean Platelet Volume 8.2 FL Neutrophils (%) (Auto) 75.5 % Lymphocytes (%) (Auto) 15.3 % Monocytes (%) (Auto) 8.5 % Eosinophils (%) (Auto) 0.4 % Basophils (%) (Auto) 0.3 % Neutrophils # (Auto) 10.8 TH/MM3 Lymphocytes # (Auto) 2.2 TH/MM3 Monocytes # (Auto) 1.2 TH/MM3 Eosinophils # (Auto) 0.1 TH/MM3 Basophils # (Auto) 0.0 TH/MM3 CBC Comment DIFF FINAL Differential Comment Prothrombin Time 11.8 SEC Prothromb Time International Ratio 1.1 RATIO Activated Partial Thromboplast Time 42.9 SEC Urine Color YELLOW Urine Turbidity HAZY Urine pH 7.0 Urine Specific [place] 1.014 Urine Protein 300 mg/dL Urine Glucose (UA) NEG mg/dL Urine Ketones NEG mg/dL Urine Occult Blood MOD Urine Nitrite NEG Urine Bilirubin NEG Urine Urobilinogen LESS THAN 2.0 MG/DL Urine Leukocyte Esterase LARGE Urine RBC 11 /hpf Urine WBC /hpf Urine WBC Clumps MOD Urine Squamous Epithelial Cells 1 /hpf Urine Amorphous Sediment FEW Urine Bacteria MANY /hpf Urine Mucus FEW /lpf Microscopic Urinalysis Comment CATH-CULTURE IND Blood Urea Nitrogen 34 MG/DL Creatinine 3.81 MG/DL Random Glucose 104 MG/DL Total Protein 8.8 GM/DL Albumin 2.4 GM/DL Calcium Level 9.5 MG/DL Alkaline Phosphatase 364 U/L Aspartate Amino Transf (AST/SGOT) 46 U/L Alanine Aminotransferase (ALT/SGPT) 42 U/L Total Bilirubin 0.5 MG/DL Sodium Level 138 MEQ/L Potassium Level 5.1 MEQ/L Chloride Level 103 MEQ/L Carbon Dioxide Level 25.8 MEQ/L Anion Gap 9 MEQ/L Estimat Glomerular Filtration Rate 13 ML/MIN Lactic Acid Level 0.7 mmol/L Phosphorus Level 3.5 MG/DL Magnesium Level 2.5 MG/DL Troponin I 0.04 NG/ML Lipase 82 U/L MDM Medical Decision Making Medical Screen Exam Complete: Yes Emergency Medical Condition: Yes Medical Record Reviewed: Yes Interpretation(s) SINUS TACHYCARDIA, 108, NO STEMI PATTERN, Differential Diagnosis SEPSIS V UTI V PNA V ELECTROLYTE ABNL Narrative Course OF NOTE PATIENT'S BP IS STABLE AT 132 SBP, UA C/W UTI, PATIENT MET SEPSIS CRITERIA HOWEVER DUE TO PULM EDEMA NO ADDITIONAL IVF GIVEN HOWEVER IV ABX GIVEN KOBE Critical Care Narrative CRITICAL CARE NOTE: With evaluation of the patient, labs, EKG, receipt of radiologic studies, administration of medications, reevaluation the patient and discussion of the patient with the admitting physicians, the total critical care time was [30] minutes. Time to perform other separately billable procedures was not included in the critical care time. Sepsis Criteria SIRS Criteria (2 or more): Temp > 100.9 or < 96.8, Heart rate over 90 Diagnosis Primary Impression: Pulmonary edema Qualified Codes: J81.0 - Acute pulmonary edema Additional Impressions: Sepsis Qualified Codes: A41.9 - Sepsis, unspecified organism UTI Admitting Information Admitting Physician Requests: it Claude Baez MD Jan 01, 2017 11:07
[2017-01-01 11:22] LABS: AUTOMATED NEUTROPHIL # 10.8 TH/MM3 (1.8-7.7); BASOPHIL % 0.3 % (0.0-2.0); EOSINOPHIL # 0.1 TH/MM3 (0-0.4); EOSINOPHIL % 0.4 % (0.0-4.0); HEMATOCRIT 29.1 % (35.0-46.0); HEMO FLAGS DIFF FINAL; LYMPH % 15.3 % (9.0-44.0); LYMPHOCYTE # 2.2 TH/MM3 (1.0-4.8); MEAN CELL VOLUME 99.2 FL (80.0-100.0); MEAN CORPUSCULAR HEMOGLOBIN 32.4 PG (27.0-34.0); MEAN CORPUSCULAR HGB CONC 32.6 % (32.0-36.0); MONO % 8.5 % (0.0-8.0); NEUT % 75.5 % (16.0-70.0); PLATELET COUNT 224 TH/MM3 (150-450); RED BLOOD COUNT 2.93 MIL/MM3 (4.00-5.30); RED CELL DISTRIBUTION WIDTH 17.4 % (11.6-17.2); WHITE BLOOD COUNT 14.3 TH/MM3 (4.0-11.0)
[2017-01-01 11:33] LABS: APTT (PATIENT) 42.9 SEC (24.3-30.1); INTERNATIONAL NORMALIZED RATIO 1.1 RATIO; PROTHROMBIN TIME - PATIENT 11.8 SEC (9.8-11.6)
[2017-01-01 11:39] LABS: ALT (GPT) 42 U/L (10-53); ANION GAP 9 MEQ/L (5-15); AST (GOT) 46 U/L (15-37); BICARBONATE 25.8 MEQ/L (21.0-32.0); BLOOD UREA NITROGEN 34 MG/DL (7-18); CHLORIDE 103 MEQ/L (98-107); GLOMERULAR FILTRATION RATE 13 ML/MIN (>89); POTASSIUM 5.1 MEQ/L (3.5-5.1); SODIUM (NA) 138 MEQ/L (136-145)
[2017-01-01 11:43] LABS: ALKALINE PHOSPHATASE 364 U/L (45-117); TOTAL BILIRUBIN ADULT 0.5 MG/DL (0.2-1.0)
--- NOTE | 2017-01-01 11:54 | RADRPT ---
EXAM DATE/TIME: 01/01/2017 11:16 [place] COMPARISON: CHEST SINGLE AP, October 18, 2016, 14:59. INDICATIONS : Fever, unresponsive. MEDICAL HISTORY : Renal failure, chronic. SURGICAL HISTORY : Right side [place] ENCOUNTER: Initial ACUITY: 3 days PAIN SCORE: Non-responsive. LOCATION: Bilateral chest FINDINGS: Right IJ tunneled dialysis catheter with tip in the right atrium. Mild diffuse interstitial prominenc e. Mild airspace disease at the left lung base. Cardiomediastinal contours are stable. Remainder of t he exam is unchanged. CONCLUSION: 1. Mild positive fluid balance. 2. Mild left lung base airspace disease, likely atelectasis although pneumonia or aspiration cannot b e entirely excluded in the appropriate clinical setting. Jose Alberto Parker MD on January 01, 2017 at 11:50 Board Certified Radiologist. This report was verified electronically.
[2017-01-01 12:16] LABS: BACTERIA, URINE MANY /hpf; BLOOD, URINE MOD (NEG); GLUCOSE,URINE NEG (NEG); KETONE, URINE NEG (NEG); MUCUS URINE FEW /lpf (OCC); NITRITE,URINE NEG (NEG); SQUAMOUS EPITHELIAL CELL URINE 1 /hpf (0-5); URINE COLOR YELLOW (YELLW/STRAW)
[2017-01-01 12:18] LABS: COMMENT (UR) CATH-CULTURE IND; CULTURE IF INDICATED CATH CULTURE IND
[2017-01-01] MEDS ORDERED: ACETAMINOPHEN 325 MG TAB PO ONE (12:45)
[2017-01-01] MEDS ORDERED: SODIUM CHLORIDE 0.9% FLUSH 10 ML FLUSH IV FLUSH PRN ×3 (13:30→16:00)
[2017-01-01] MEDS ORDERED: BISACODYL 10 MG SUPP RECTAL PRN (14:30)
[2017-01-01] MEDS ORDERED: NALOXONE HCL 0.4 MG/ML AMP IV PUSH PRN (14:30)
[2017-01-01] MEDS ORDERED: MAGNESIUM HYDROXIDE SUSP 30 ML CUP PO PRN (14:30)
[2017-01-01] MEDS ORDERED: LACTULOSE SYRUP 20 GM/30 ML CUP PO PRN (14:30)
[2017-01-01] MEDS ORDERED: SODIUM CHLOR 0.9% 1000 ML INJ 1,000 ML IV SCH (14:30)
[2017-01-01] MEDS ORDERED: SENNOSIDES 8.6 MG TAB PO PRN (14:30)
[2017-01-01] MEDS: PANTOPRAZOLE SOD 40 MG DELAYED RELEASE TAB PO SCH (15:00)
[2017-01-01] MEDS ORDERED: GLUCAGON 1 MG/ML VIAL OTHER PRN (15:00)
[2017-01-01] MEDS ORDERED: ATROPINE SULFATE 1 MG/10 ML SYRINGE ONE (15:19)
[2017-01-01] MEDS ORDERED: EPINEPHrine HCL (1:10,000) 1 MG/10 ML SYRINGE ONE (15:20)
[2017-01-01 15:27] LABS: MAGNESIUM 2.5 MG/DL (1.5-2.5)
--- NOTE | 2017-01-01 15:40 | HHI.HP ---
HPI Service Family Medicine Primary Care Physician No Primary Care Physician Admission Diagnosis SEPSIS,UTI, PULM EDEMA ON DIALYSIS Diagnoses: International Travel<30 Days: No Contact w/Intl Traveler<30days: No Known Affected Area: No History of Present Illness Patient is a 51-year-old female with medical history of diabetes, ESRD (on HD), HTN, CVA and COPD in by EMS from [facility] due to altered mental status and suspected of UTI. Patient was difficult to arouse during beginning interview. Patient with fluctuating altered mental status on during hpi interview. However she was able to provide correct name, location, and year. Patient stated for the past couple of days she has not been feeling well. She reports cloudy foul smelling urine. Denies dysuria, fever, chills, abdominal pain, N/V, back pain, chest pain, or shortness of breath. No patient received hemodialysis on Sunday. Patient's older sister sister Lydia ([phone]) was contacted. She has not seen the patient in the past 2 weeks. However stated that at baseline patient is alert and oriented no history of dementia. (April Bullard MD, R1) Review of Systems Constitutional: DENIES: Fever, Chills Eyes: COMPLAINS OF: Vision loss (legally blind on R eye, diminished vision on Left eye) Ears, nose, mouth, throat: DENIES: Oral lesions Respiratory: DENIES: Shortness of breath Cardiovascular: DENIES: Chest pain, Palpitations Gastrointestinal: DENIES: Abdominal pain, Nausea, Vomiting Genitourinary: DENIES: Dysuria Musculoskeletal: DENIES: Back pain Neurologic: DENIES: Headache Psychiatric: COMPLAINS OF: Confusion (April Bullard MD, R1) Past Family Social History Past Medical History ESRD ( on HD , , sun) T1DM COPD 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 fib Glaucoma ALEXANDRA Hypertension CVA, 2 yr ago Past Surgical History History of PermCath placement. (April Bullard MD, R1) Allergies: Coded Allergies: fentanyl (Verified Allergy, Unknown, 10/25/16) morphine (Unverified Allergy, Unknown, 09/26/16) vancomycin (Verified Adverse Reaction, Severe, Rash, 10/17/16) Family History Father- emphysema, diabetes, hypertension Mother- early stage dementia, arthritis, hypertension Sister-hypertension, valvular heart disease Older brother heart problems Sister-cardiomyopathy Social History Patient lives pain [facility] for the past 2 months. She resided at [facility] before. -Her sister Lydia states pt has had 2 hospitalizations in the past 2 months, does not remember the reason for hospitalizations. Ambulates with walker and assistance As per sister, now smoking, alcohol or illicit drug use history (April Bullard MD, R1) Physical Exam Vital Signs Vital Signs Date Time Temp Pulse Resp B/P (MAP) Pulse Ox O2 Delivery O2 Flow Rate FiO2 01/01/17 14:03 99.1 96 18 141/70 (93) 100 Room Air 01/01/17 12:16 100.4 103 24 134/91 (105) 98 Nasal Cannula 2.00 01/01/17 10:58 95 Nasal Cannula 2.00 01/01/17 10:58 18 95 Nasal Cannula 2.00 01/01/17 10:52 101.7 108 18 133/58 (83) 100 Nasal Cannula 2.00 01/01/17 10:52 108 28 98 Room Air 01/01/17 10:49 102.2 107 18 133/58 (83) 99 Nasal Cannula 2.00 Physical Exam GENERAL: This is a well-nourished, well-developed patient, obese female, difficult to arouse. Altered mental status but oriented to self, place and year. SKIN: No rashes, ecchymoses or lesions. Cool and dry. HEAD: Atraumatic. Normocephalic. No temporal or scalp tenderness. EYES: Pupils equal round and dilated. Non-reactive to light BL. 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 Extraocular motions intact. No scleral icterus. No injection or drainage. ENT: Nose without bleeding, purulent drainage or septal hematoma. Throat without erythema, tonsillar hypertrophy or exudate. Uvula midline. Airway patent. NECK: Trachea midline. No JVD or lymphadenopathy. Supple, nontender, no meningeal signs. CARDIOVASCULAR: Normal s1 and s2. Regular rate and rhythm without murmurs, gallops, or rubs. RESPIRATORY: Difficult to auscultate. No wheezes, rales, or rhonchi. GASTROINTESTINAL: Abdomen soft, positive BS, non-tender, distended-obese abdomen. No hepato-splenomegaly, or palpable masses. No guarding. MUSCULOSKELETAL: Extremities without clubbing, cyanosis, or edema. No joint tenderness, effusion, or edema noted. No calf tenderness. Negative Homans sign bilaterally. Limited range of motion in all extremities more pronounce on LE on exam. 2/5 strength in LE BL. 3/5 strength in UE. NEUROLOGICAL: Awake and alert. Cranial nerves II through XII intact. Motor and sensory grossly within normal limits. Five out of 5 muscle strength in all muscle groups. Normal speech. Laboratory Laboratory Tests Test 01/01/17 11:02 White Blood Count 14.3 Red Blood Count 2.93 Hemoglobin 9.5 Hematocrit 29.1 Mean Corpuscular Volume 99.2 Mean Corpuscular Hemoglobin 32.4 Mean Corpuscular Hemoglobin Concent 32.6 Red Cell Distribution Width 17.4 Platelet Count 224 Mean Platelet Volume 8.2 Neutrophils (%) (Auto) 75.5 Lymphocytes (%) (Auto) 15.3 Monocytes (%) (Auto) 8.5 Eosinophils (%) (Auto) 0.4 Basophils (%) (Auto) 0.3 Neutrophils # (Auto) 10.8 Lymphocytes # (Auto) 2.2 Monocytes # (Auto) 1.2 Eosinophils # (Auto) 0.1 Basophils # (Auto) 0.0 CBC Comment DIFF FINAL Differential Comment Prothrombin Time 11.8 Prothromb Time International Ratio 1.1 Activated Partial Thromboplast Time 42.9 Urine Color YELLOW Urine Turbidity HAZY Urine pH 7.0 Urine Specific [place] 1.014 Urine Protein 300 Urine Glucose (UA) NEG Urine Ketones NEG Urine Occult Blood MOD Urine Nitrite NEG Urine Bilirubin NEG Urine Urobilinogen LESS THAN 2.0 Urine Leukocyte Esterase LARGE Urine RBC 11 Urine WBC Urine WBC Clumps MOD Urine Squamous Epithelial Cells 1 Urine Amorphous Sediment FEW Urine Bacteria MANY Urine Mucus FEW Microscopic Urinalysis Comment CATH-CULTURE IND Blood Urea Nitrogen 34 Creatinine 3.81 Random Glucose 104 Total Protein 8.8 Albumin 2.4 Calcium Level 9.5 Alkaline Phosphatase 364 Aspartate Amino Transf (AST/SGOT) 46 Alanine Aminotransferase (ALT/SGPT) 42 Total Bilirubin 0.5 Sodium Level 138 Potassium Level 5.1 Chloride Level 103 Carbon Dioxide Level 25.8 Anion Gap 9 Estimat Glomerular Filtration Rate 13 Lactic Acid Level 0.7 Phosphorus Level 3.5 Magnesium Level 2.5 Troponin I 0.04 Lipase 82 Date/Time Source Procedure Growth Status 01/01/17 11:02 Blood Peripheral Aerobic Blood Culture Pending Received 01/01/17 11:02 Blood Peripheral Anaerobic Blood Culture Pending Received 01/01/17 11:02 Urine Catheterized Urine Urine Culture Pending Received (April Bullard MD, R1) Result Diagram: 01/01/17 1102 01/01/17 1102 Imaging Last Impressions Chest X-Ray 01/01/17 1051 Signed Impressions: Service Date/Time: Sunday, January 01, 2017 11:16 - CONCLUSION: 1. Mild positive fluid balance. 2. Mild left lung base airspace disease, likely atelectasis although pneumonia or aspiration cannot be entirely excluded in the appropriate clinical setting. Jose Alberto Parker MD (April Bullard MD, R1) Septic Shock Reassessment Heart: Regular rate and rhythm Lungs: Clear (April Bullard MD, R1) Caprini VTE Risk Assessment Caprini VTE Risk Assessment: Mod/High Risk (score >= 2) Caprini Risk Assessment Model Point Value = 1 Point Value = 2 Point Value = 3 Point Value = 5 Age 41-60 Minor surgery BMI > 25 kg/m2 Swollen legs Varicose veins or History of unexplained or recurrent spontaneous Oral contraceptives or hormone replacement Sepsis (< 1 month) Serious lung disease, including pneumonia (< 1 month) Abnormal pulmonary function Acute myocardial infarction Congestive heart failure (< 1 month) History of inflammatory bowel disease Medical patient at bed rest Age 61-74 Arthroscopic surgery Major open surgery (> 45 min) Laparoscopic surgery (> 45 min) Malignancy Confined to bed (> 72 hours) Immobilizing plaster cast Central venous access Age >= 75 History of VTE Family history of VTE Factor V Leiden Prothrombin [id number] Lupus anticoagulant Anticardiolipin antibodies Elevated serum homocysteine Heparin-induced thrombocytopenia Other congenital or acquired thrombophilia Stroke (< 1 month) Elective arthroplasty Hip, pelvis, or leg fracture Acute spinal cord injury (< 1 month) Prophylaxis Regimen Total Risk Factor Score Risk Level Prophylaxis Regimen 0-1 Low Early ambulation 2 Moderate Order ONE of the following: *Sequential Compression Device (SCD) *Heparin 5000 units SQ BID 3-4 Higher Order ONE of the following medications: *Heparin 5000 units SQ TID *Enoxaparin/Lovenox 40 mg SQ daily (WT < 150 kg, CrCl > 30 mL/min) *Enoxaparin/Lovenox 30 mg SQ daily (WT < 150 kg, CrCl > 10-29 mL/min) *Enoxaparin/Lovenox 30 mg SQ BID (WT < 150 kg, CrCl > 30 mL/min) AND/OR *Sequential Compression Device (SCD) 5 or more Highest Order ONE of the following medications: *Heparin 5000 units SQ TID (Preferred with Epidurals) *Enoxaparin/Lovenox 40 mg SQ daily (WT < 150 kg, CrCl > 30 mL/min) *Enoxaparin/Lovenox 30 mg SQ daily (WT < 150 kg, CrCl > 10-29 mL/min) *Enoxaparin/Lovenox 30 mg SQ BID (WT < 150 kg, CrCl > 30 mL/min) AND *Sequential Compression Device (SCD) (April Bullard MD, R1) Assessment and Plan Assessment and Plan Patient is a 51-year-old female with medical history of diabetes, ESRD (on HD), COPD, A. fib, CVA brought to ED via EMS from [facility] due to AMS and suspected UTI. Patient admitted for management of severe sepsis due to UTI versus PNA. Code Status Full code Discussed Condition With sdw Dr. Mata, Dr. Correa, Dr. Farmer (April Bullard MD, R1) Attending Attestation THIS CASE WAS DISCUSSED WITH THE RESIDENT PHYSICIANS. I HAVE REVIEWED THE RECORD AND AGREE WITH THE ABOVE NOTE AND PLAN OF CARE WAS DISCUSSED. I HAVE AUTHORIZED THE ORDER FOR ADMISSION TO AN IN-PATIENT STATUS. PATIENT WAS SEEN AND DISCUSSED WITH THE RESIDENT TEAM AND I WAS PERSONALLY PRESENT FOR THE ENTIRE HISTORY AND PHYSICAL EXAM. AGREE WITH THE ABOVE ASSESSMENT AND PLAN. (Charlene Mata MD) Problem List: (1) Sepsis ICD Codes: A41.9 - Sepsis, unspecified organism Status: Acute Plan: Patient found to meet severe sepsis criteria on admission with possible source being urinary and/or lungs. Other possible differential diagnoses include stroke, DKA, or SC. Patient with altered mental status, febrile, tachycardia, positive leukocytosis , UA with positive leukocytes esterase and moderate white blood cell clumps. BP WNL, O2 sat 95-98% on 2 L NS lactic acid WNL Chest x-ray: mild Left lung base disease, suggestive of atelectasis vs PNA vs aspiration CT head: No acute findings EKG: sinus tach -C/w zosyn and azithromycin -f/u Ucx, blood cx, legionella and pneuno urine ag -f/u repeat troponin and EKG -f/u am labs, bedside swallow study -Pt placed in unit for close monitoring -IVF at 50mls/hr -Consider ID consult if patient not clinically improving with current antibiotic coverage (2) End stage kidney disease ICD Codes: N18.6 - End stage renal disease Status: Chronic Plan: - nephrology consulted for HD management - HD normal schedule: Sunday - BUN/Cr: 34/3.81, at baseline compared to past labs -monitor electrolytes, I/O -renally dose meds -no nephrotoxic agents - f/u mag, phosphorus (3) COPD (chronic obstructive pulmonary disease) ICD Codes: J44.9 - Chronic obstructive pulmonary disease, unspecified Status: Chronic Plan: -c/w duoneb (4) Hypertension ICD Codes: I10 - Essential (primary) hypertension Status: Chronic Plan: -c/w home meds (5) Diabetes ICD Codes: E11.9 - Type 2 diabetes mellitus without complications Plan: -monitor BG chks - ssi low dose novolog scale -hold home meds (6) Nutrition, metabolism, and development symptoms ICD Codes: R63.8 - Other symptoms and signs concerning food and fluid intake Plan: Fluids: 50mls/hr Electrolytes: WNL, replete as needed Nutrition: NPO, pending results of swallow study DVT ppx: heparin 5,000 units Q8h SQ (April Bullard MD, R1) Physician Certification 2 Midnight Certification Type: Admission for Inpatient Services Order for Inpatient Services The services are ordered in accordance with Medicare regulations or non- Medicare payer requirements, as applicable. In the case of services not specified as inpatient-only, they are appropriately provided as inpatient services in accordance with the 2-midnight benchmark. Estimated LOS (days): 5 days is the estimated time the patient will need to remain in the hospital, assuming treatment plan goals are met and no additional complications. Post-Hospital Plan: Not yet determined (April Bullard MD, R1) 2 Midnight Certification Type: Admission for Inpatient Services Post-Hospital Plan: SNF (Charlene Mata MD) Problem Qualifiers (1) Sepsis: Qualified Codes: A41.9 - Sepsis, unspecified organism (2) Diabetes: April Bullard MD, R1 Jan 01, 2017 15:40 Charlene Mata MD Jan 02, 2017 11:54
[2017-01-01] MEDS ORDERED: SODIUM CHLOR 0.9% 1000 ML INJ 1,000 ML OTHER PRN ×2 (15:50)
[2017-01-01] MEDS ORDERED: SODIUM CHLOR 0.9% 1000 ML INJ 1,000 ML IV PRN (15:50)
[2017-01-01] MEDS ORDERED: HEPARIN SODIUM - IV 10,000 UNITS/10 ML VIAL IV FLUSH PRN (16:00)
[2017-01-01] MEDS ORDERED: NITROGLYCERIN 0.4 MG SL 25 TABS/BTL SL PRN (16:00)
[2017-01-01] MEDS ORDERED: diphenhydrAMINE HCL 25 MG CAP PO PRN (16:00)
[2017-01-01] MEDS ORDERED: MANNITOL 12.5 GM/50 ML VIAL IV PRN (16:00)
[2017-01-01] MEDS ORDERED: ACETAMINOPHEN 325 MG TAB PO PRN (16:00)
[2017-01-01] MEDS ORDERED: GELATIN 12 MM/7 MM FOAM TOP PRN (16:00)
[2017-01-01] MEDS ORDERED: ONDANSETRON HCL 4 MG/2 ML VIAL IV PUSH PRN (16:00)
[2017-01-01] MEDS ORDERED: cloNIDine HCL 0.1 MG TAB PO PRN (16:00)
--- NOTE | 2017-01-01 16:03 | EKG ---
Date Performed: 01/01/2017 Time Performed: 10:46:44 PTAGE: 51 years EKG: SINUS TACHYCARDIA Compared to prior tracing no significant change ABNORMAL RHYTHM ECG PREVIOUS TRACING : 10/12/2016 20.00 DOCTOR: Fernandez Rick Interpretating Date/Time 01/01/2017 16:01:26
--- NOTE | 2017-01-01 16:26 | MB ---
cc: CLAUDIA HERMAN MD DATE OF CONSULTATION: 01/01/2017 REASON FOR CONSULTATION End-stage renal disease on hemodialysis, for management. HISTORY OF PRESENT ILLNESS This is a very pleasant 51-year-old female known to me from before with past medical history of hypertension, diabetes mellitus, end-stage renal disease on hemodialysis started recently, history of cerebrovascular accident, chronic anemia, sleep apnea, was transferred here from the senior living because of fever and foul smelling of the urine. I was called to see the patient for the management of dialysis. She has been on hemodialysis Sunday, and Sunday. She had hemodialysis on Sunday. I saw her during dialysis and she had fever. Blood cultures were done and she was given dose of vancomycin and ceftazidime during dialysis. The patient was transferred back to the senior living and according to the patient she continued to have fever over there and she noticed that her urine is foul smelling, although there was no dysuria or hematuria. She does not have any nausea or vomiting but she was not eating well and she had a few loose bowel motions. She told the nurse that she is not feeling well and she was transferred here. Here it was found that the patient has high-grade fever and also has leukocytosis. In the emergency department the patient was given Zosyn and also started on azithromycin. The patient is now being transferred to the intensive care unit for close observation. She denies any headache, dizziness or blurring of vision. There is no shortness of breath. She has been on 2 liters nasal cannula saturating 98-100%. Denies any chest pain. No palpitation. PAST MEDICAL HISTORY 1. Hypertension. 2. Diabetes mellitus. 3. History of cerebrovascular accident. 4. End-stage renal disease on hemodialysis three times per week. 5. Chronic anemia. 6. Sleep apnea. 7. Atrial fibrillation. PAST SURGICAL HISTORY History of PermCath placement. REVIEW OF SYSTEMS The patient denies any headache, dizziness. She has generalized weakness, feeling tired, has fever and some chills. There is no nausea or vomiting but she has decreased appetite. Denies any abdominal pain but has loose bowel motion. Also noticed foul smelling urine, though there is no dysuria or hematuria. SOCIAL HISTORY The patient lives at a nursing facility. There is no history of smoking or alcoholism. FAMILY HISTORY Family history is noncontributory. ALLERGIES Allergic to FENTANYL, MORPHINE AND VANCOMYCIN. MEDICATIONS Currently She is on: 1. Normal saline at 50 an hour. 2. Amlodipine 5 mg once a day. 3. Vitamin D3 5000 units once a day. 4. Lopressor 50 mg daily. 5. Pravachol 40 mg once a day. 6. Protonix 40 mg daily. 7. Singulair 10 mg q.h.s. 8. Azithromycin 500 mg q.24 hour. 9. Zosyn 2.25 grams q. 6 hour. 10. Heparin 5000 units subcu q.8 hour. 11. Hydralazine 100 mg t.i.d. 12. Insulin Aspart sliding scale. 13. Clonidine 0.1 mg q. 8-hour. 14. Narcan as needed. PHYSICAL EXAMINATION GENERAL: The patient is awake, alert. She is not in acute distress. VITAL SIGNS: Her last blood pressure is 141/70, temperature 99.1 with T-max of 102.2. HEENT: Pupils are mid constricted. Nonicteric sclerae, conjunctivae pale. NECK: Supple. JVD is not elevated. LUNGS: The patient has bilateral decreased air entry with occasional wheezing. HEART: S1, S2, regular rhythm. ABDOMEN: Distended, soft, lax. There is no tenderness. Bowel sounds positive. EXTREMITIES: There is mild edema in the legs. INVESTIGATION WBC count is 14.3, hemoglobin 9.5, platelet count of 224, neutrophils 75.5%, sodium 138, potassium 5.1, chloride 103, bicarb 25.8, BUN 34, creatinine 3.8, calcium is 9.5, AST is 46, ALT is 42, total protein is 8.8 with albumin of 2.4, INR is 1.1. Urinalysis showing protein of 300 with many bacteria and moderate WBC clumps. Blood culture and urine culture pending. IMAGING STUDIES The patient has a chest x-ray done which shows left lung base atelectasis versus pneumonia. ASSESSMENT/PLAN 1. Fever, rule out sepsis. 2. Urinary tract infection. 3. Possible pneumonia. 4. End-stage renal disease on hemodialysis. 5. Leukocytosis. 6. Anemia. The patient has very high fever and has a urinary tract infection and possible pneumonia, admitted to the hospital, rule out sepsis, could be related to the PermCath or line sepsis. The patient had last hemodialysis done on Sunday this week because of holidays, she was supposed to be dialyzed on Sunday and Sunday and again back on Sunday and she was supposed to be dialyzed today but her clinical condition is stable. She does not have fluid overload, potassium is normal. Will hold the dialysis today and put her on dialysis tomorrow and Sunday and then on Sunday. Follow the culture result, continue antibiotic. Thank you for the consultation. I will follow the patient while she is in the hospital. Claudia Herman MD AQJ/TLL /3:50 PM /4:07 PM
[2017-01-01] MEDS: AZITHROMYCIN INJ 500 MG in SODIUM CHLOR 0.9% 250 ML INJ 250 ML IV SCH (16:41)
[2017-01-01] MEDS: HEPARIN SODIUM - SQ 10,000 UNITS/ML VIAL SQ SCH (16:42)
[2017-01-01] MEDS: LACTOBACILLUS ACIDOPHILUS TAB PO SCH (16:43)
[2017-01-01] MEDS: INSULIN ASPART SUPPLEMENTAL SCALE SQ SCH ×2 (17:00→20:00)
[2017-01-01] MEDS: hydrALAZINE HCL 100 MG TAB PO SCH (17:38)
[2017-01-01] MEDS: PIPERACIL-TAZO 2.25 GM PREMIX 50 ML IV SCH ×2 (18:25→21:06)
--- NOTE | 2017-01-01 18:58 | RADRPT ---
EXAM DATE/TIME: 01/01/2017 17:56 [facility] COMPARISON: CT BRAIN W/O CONTRAST, October 19, 2016, 17:01. INDICATIONS : Altered mental status. RADIATION DOSE: 53.02 CTDIvol (mGy) MEDICAL HISTORY : Cardiovascular disease. Hypertension. Chronic obstructive pulmonary disease.diabetic, dialysis SURGICAL HISTORY : None. ENCOUNTER: Initial ACUITY: 1 day PAIN SCALE: Non-responsive LOCATION: cranial TECHNIQUE: Multiple contiguous axial images were obtained of the head. Using automated exposure control and adj ustment of the mA and/or kV according to patient size, radiation dose was kept as low as reasonably a chievable to obtain optimal diagnostic quality images. DICOM format image data is available electro nically for review and comparison. FINDINGS: CEREBRUM: The ventricles are normal for age. No evidence of midline shift, mass lesion, hemorrhage or acute in farction. No extra-axial fluid collections are seen. POSTERIOR FOSSA: The cerebellum and brainstem are intact. The 4th ventricle is midline. The cerebellopontine angle i s unremarkable. EXTRACRANIAL: The visualized portion of the orbits is intact. Stable right venous retention cyst in maxillary sinu s and mild right mastoid disease. SKULL: The calvaria is intact. No evidence of skull fracture. CONCLUSION: No acute findings. Wilner Bashir MD on January 01, 2017 at 18:55 Board Certified Radiologist. This report was verified electronically.
[2017-01-01] MEDS: DEXTROSE 50% IN WATER 50 ML VIAL(D50) IV PUSH PRN (19:03)
[2017-01-01] MEDS: DOCUSATE SODIUM 50 MG/SENNA 8.6 MG TAB PO SCH (19:59)
[2017-01-01] MEDS: SODIUM CHLORIDE 0.9% FLUSH 10 ML FLUSH IV FLUSH SCH (19:59)
[2017-01-01] MEDS: cloNIDine HCL 0.1 MG TAB PO SCH (20:00)
[2017-01-01] MEDS: MONTELUKAST SODIUM 10 MG TAB PO SCH (20:00)
[2017-01-01] MEDS: RESP: ALBUTEROL 2.5 MG/IPRATROPIUM 0.5 MG NEB (SCH) NEB ×2 (20:21→23:33)
[2017-01-01] MEDS ORDERED: SODIUM CHLORIDE 0.9% FLUSH 10 ML FLUSH IV FLUSH SCH (21:00)
[2017-01-01] MEDS: FLUOROMETHOLONE 0.1% OPHT SUSP 5 ML BTL EACH EYE SCH (21:02)
[2017-01-01] MEDS: DORZOLAMIDE 2% OPTH SOLN 200 DROP/10 ML BTLO EACH EYE SCH (21:02)
[2017-01-02] VITALS (15 sets, daily range): BP systolic 108–135; BP diastolic 52–62; PULSE 80–117; RESP 20; TEMP 98–99.4; O2SAT 89–100
[2017-01-02] MEDS: HEPARIN SODIUM - SQ 10,000 UNITS/ML VIAL SQ SCH ×3 (01:08→15:29)
[2017-01-02] MEDS: RESP: ALBUTEROL 2.5 MG/IPRATROPIUM 0.5 MG NEB (SCH) NEB ×6 (03:16→23:32)
[2017-01-02] MEDS: PIPERACIL-TAZO 2.25 GM PREMIX 50 ML IV SCH ×3 (05:00→17:19)
[2017-01-02] MEDS: cloNIDine HCL 0.1 MG TAB PO SCH ×4 (05:02→21:16)
[2017-01-02] MEDS: INSULIN ASPART SUPPLEMENTAL SCALE SQ SCH ×4 (08:00→21:16)
[2017-01-02] MEDS: DEXTROSE 50% IN WATER 50 ML VIAL(D50) IV PUSH PRN ×2 (08:04→11:58)
[2017-01-02] MEDS: DORZOLAMIDE 2% OPTH SOLN 200 DROP/10 ML BTLO EACH EYE SCH ×2 (08:06→21:15)
[2017-01-02] MEDS: FLUOROMETHOLONE 0.1% OPHT SUSP 5 ML BTL EACH EYE SCH ×2 (08:07→21:15)
[2017-01-02] MEDS: CHOLECALCIFEROL (VIT D3) 5000 UNIT CAP PO SCH (08:07)
[2017-01-02] MEDS: LACTOBACILLUS ACIDOPHILUS TAB PO SCH ×3 (08:08→15:30)
[2017-01-02] MEDS: amLODIPine BESYLATE 5 MG TAB PO SCH (08:08)
[2017-01-02] MEDS: DOCUSATE SODIUM 50 MG/SENNA 8.6 MG TAB PO SCH ×2 (08:08→20:54)
[2017-01-02] MEDS: METOPROLOL TARTRATE 25 MG TAB PO SCH (08:08)
[2017-01-02] MEDS: hydrALAZINE HCL 100 MG TAB PO SCH ×4 (08:08→17:37)
[2017-01-02] MEDS: PRAVASTATIN SOD 40 MG TAB PO SCH (08:08)
[2017-01-02] MEDS: PANTOPRAZOLE SOD 40 MG DELAYED RELEASE TAB PO SCH (08:09)
[2017-01-02] MEDS: SODIUM CHLORIDE 0.9% FLUSH 10 ML FLUSH IV FLUSH SCH ×2 (08:09→21:00)
[2017-01-02] MEDS: HEPARIN SODIUM - IV 10,000 UNITS/10 ML VIAL PRN (08:58)
[2017-01-02] MEDS: EPOETIN ALFA 10,000 UNITS/ML VIAL IV PUSH PRN (08:59)
[2017-01-02] MEDS: GENTAMICIN SULFATE (DIALYSIS USE ONLY) 20 MG/2 ML VIAL OTHER PRN (08:59)
[2017-01-02] MEDS ORDERED: INFLUENZA VIRUS VACCINE (QUADRIVALENT) 0.5 ML SYR IM ONE (10:00)
--- NOTE | 2017-01-02 10:07 | HHI.NPPN ---
Subjective General Problems: Anemia, Edema Renal Failure: End Stage Renal Disease History of Present Illness 51-year-old female known to me from before with past medical history of hypertension, diabetes mellitus, end-stage renal disease on hemodialysis started recently, history of cerebrovascular accident, chronic anemia, sleep apnea, was transferred here from the senior living because of fever and foul smelling of the urine. I was called to see the patient for the management of dialysis. She has been on hemodialysis Sunday, and Sunday. Additional Remarks Patient is alert, seen during HD, with nasal cannula, not in distress. Review of Systems General Constitutional: Fatigue Respiratory Lungs: SOB Cardiovascular Cardiac: Edema, BALL Objective Data Data Vital Signs Date Time Temp Pulse Resp B/P (MAP) Pulse Ox O2 Delivery O2 Flow Rate FiO2 01/02/17 08:19 99 Nasal Cannula 1.50 01/02/17 06:00 82 01/02/17 04:00 98.1 84 20 120/61 (80) 96 01/02/17 04:00 81 01/02/17 02:00 87 01/02/17 00:00 98.1 80 108/61 (77) 100 01/02/17 00:00 82 01/01/17 22:00 81 01/01/17 20:26 100 Nasal Cannula 1.50 01/01/17 20:00 83 01/01/17 20:00 98.0 83 101/65 (77) 100 01/01/17 18:06 98.2 88 94/57 (69) 100 01/01/17 18:00 89 01/01/17 17:00 87 99/58 (72) 100 01/01/17 16:00 98.4 86 24 97/56 (70) 100 01/01/17 16:00 86 01/01/17 14:03 99.1 96 18 141/70 (93) 100 Room Air 01/01/17 12:16 100.4 103 24 134/91 (105) 98 Nasal Cannula 2.00 01/01/17 10:58 95 Nasal Cannula 2.00 01/01/17 10:58 18 95 Nasal Cannula 2.00 01/01/17 10:52 101.7 108 18 133/58 (83) 100 Nasal Cannula 2.00 01/01/17 10:52 108 28 98 Room Air 01/01/17 10:49 102.2 107 18 133/58 (83) 99 Nasal Cannula 2.00 -: 01/01/17 1102 01/01/17 1102 Microbiology 01/01/17 Aerobic Blood Culture, Received Pending 01/01/17 Anaerobic Blood Culture, Received Pending 01/01/17 Aerobic Blood Culture, Received Pending 01/01/17 Anaerobic Blood Culture, Received Pending 01/01/17 Legionella Antigen, Received Pending 01/01/17 Streptococcus pneumoniae Antigen (M, Received Pending 01/01/17 Urine Culture, Received Pending Physical Exam General Appearance: No Acute Distress, Comfortable Eyes Eye Exam: Pupils Equal Throat Throat Exam: Oral Mucosa [place] & Moist Pulmonary Resp Exam: No Distress, Crackles, Rhonchi, Decreased Bases, Diminished Breath Sounds Cardiology CV Exam: Regular, Normal Sinus Rhythm Gastrointestinal/Abdomen GI Exam: Soft, Non-Tender, Bowel Sounds Present Extremeties Extremities Exam: Moderate Edema Neurologic Neuro Exam: Alert, Awake, Oriented Psychiatric Psych Exam: Appropriate Responses Assessment/Plan Assessment Summary: Anemia of CKD, Fluid/Volume Overload, End Stage Renal Disease Problem List: (1) Hypertension ICD Codes: I10 - Essential (primary) hypertension Status: Chronic (2) COPD (chronic obstructive pulmonary disease) ICD Codes: J44.9 - Chronic obstructive pulmonary disease, unspecified Status: Chronic (3) Diabetes mellitus type 2, uncontrolled ICD Codes: E11.65 - Uncontrolled type 2 diabetes mellitus Status: Chronic (4) UTI (urinary tract infection) ICD Codes: N39.0 - Urinary tract infection Status: Acute (5) CVA (cerebral infarction) ICD Codes: I63.9 - CVA (cerebral infarction) Status: Acute Plan Patient has been afebrile now. On Azithromycin and Zosyn. HD now, removing 3 liters. BP is stable. HD again in AM to put her back on TTS due to Holidays. On Epogen with HD for anemia. Follow all the cultures, negative so far. Continue antibiotics. Zi Kemp MD Jan 02, 2017 10:07
[2017-01-02] MEDS: ALBUMIN 25% INJ 100 ML IV PRN (10:37)
--- NOTE | 2017-01-02 11:31 | HHI.FPPN ---
Subjective Remarks Patient seen and examined at bedside. No acute events overnight.Patient is more alert today compared to admission. Denies cough, fever, chills, or back pain. Patient has no sxs or complaints. She passed bedside swallow study. (April Bullard MD, R1) Objective Vitals Vital Signs Date Time Temp Pulse Resp B/P (MAP) Pulse Ox O2 Delivery O2 Flow Rate FiO2 01/02/17 10:00 117 01/02/17 09:00 86 01/02/17 08:19 99 Nasal Cannula 1.50 01/02/17 08:00 86 01/02/17 08:00 98.5 86 126/61 (82) 100 01/02/17 06:00 82 01/02/17 04:00 98.1 84 20 120/61 (80) 96 01/02/17 04:00 81 01/02/17 02:00 87 01/02/17 00:00 98.1 80 108/61 (77) 100 01/02/17 00:00 82 01/01/17 22:00 81 01/01/17 20:26 100 Nasal Cannula 1.50 01/01/17 20:00 83 01/01/17 20:00 98.0 83 101/65 (77) 100 01/01/17 18:06 98.2 88 94/57 (69) 100 01/01/17 18:00 89 01/01/17 17:00 87 99/58 (72) 100 01/01/17 16:00 98.4 86 24 97/56 (70) 100 01/01/17 16:00 86 01/01/17 14:03 99.1 96 18 141/70 (93) 100 Room Air 01/01/17 12:16 100.4 103 24 134/91 (105) 98 Nasal Cannula 2.00 I/O 01/01/17 01/01/17 01/01/17 01/02/17 01/02/17 01/02/17 07:00 15:00 23:00 07:00 15:00 23:00 Intake Total 305 ml 675 ml 100 ml Output Total 350 ml 75 ml 2000 ml Balance -45 ml 600 ml -1900 ml Intake Oral 0 ml IV Total 305 ml 675 ml 100 ml Output Urine Total 350 ml 75 ml Hemodialysis 2000 ml # Bowel Movements 0 1 (April Bullard MD, R1) Result Diagram: 01/01/17 1102 01/01/17 1102 Imaging Last Impressions Chest X-Ray 01/01/17 1051 Signed Impressions: Service Date/Time: Sunday, January 01, 2017 11:16 - CONCLUSION: 1. Mild positive fluid balance. 2. Mild left lung base airspace disease, likely atelectasis although pneumonia or aspiration cannot be entirely excluded in the appropriate clinical setting. Jose Alberto Parker MD Head CT 01/01/17 0000 Signed Impressions: Service Date/Time: Sunday, January 01, 2017 17:56 - CONCLUSION: No acute findings. Wilner Bashir MD Objective Remarks GENERAL: This is a well-nourished, well-developed patient, obese female, difficult to arouse. Patient is more alert and answering questions SKIN: No rashes, ecchymoses or lesions. Cool and dry. HEAD: Atraumatic. Normocephalic. No temporal or scalp tenderness. EYES: Pupils equal round and dilated. Non-reactive to light BL. 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 Extraocular motions intact. No scleral icterus. No injection or drainage. ENT: Nose without bleeding, purulent drainage or septal hematoma. Throat without erythema, tonsillar hypertrophy or exudate. Uvula midline. Airway patent. NECK: Trachea midline. No JVD or lymphadenopathy. Supple, nontender, no meningeal signs. CARDIOVASCULAR: Normal s1 and s2. Regular rate and rhythm without murmurs, gallops, or rubs. RESPIRATORY: No wheezes, rales, or rhonchi. GASTROINTESTINAL: Abdomen soft, positive BS, non-tender, distended-obese abdomen. No hepato-splenomegaly, or palpable masses. No guarding. MUSCULOSKELETAL: Extremities without clubbing, cyanosis, or edema. No joint tenderness, effusion, or edema noted. No calf tenderness. Negative Homans sign bilaterally. Limited range of motion in all extremities more pronounce on LE on exam. 2/5 strength in LE BL. 3/5 strength in UE. NEUROLOGICAL: Awake and alert. Cranial nerves II through XII intact. Motor and sensory grossly within normal limits. Five out of 5 muscle strength in all muscle groups. Normal speech. (April Bullard MD, R1) Urinary Catheter: Yes (April Bullard MD, R1) A/P Assessment and Plan Patient is a 51-year-old female with medical history of diabetes, ESRD (on HD), COPD, A. fib, CVA brought to ED via EMS from [facility] due to AMS and suspected UTI. Patient admitted for management of severe sepsis due to UTI and/or PNA. Patient more alert today. AAOx3. Remained afebrile overnight. (April Bullard MD, R1) Attending Attestation Patient seen and examined. Case reviewed and discussed with the resident team. Agree with plan of care as discussed with me and documented in the resident note. (Charlene Mata MD) Problem List: (1) Sepsis ICD Codes: A41.9 - Sepsis, unspecified organism Status: Acute Plan: Patient found to meet severe sepsis criteria on admission with possible source being urinary and/or lungs. Other possible differential diagnoses include stroke, DKA, or NV. On admission patient found to have altered mental status, febrile, tachycardia, positive leukocytosis, UA with positive leukocytes esterase and moderate white blood cell clumps. BP WNL, O2 sat 95-98% on 2 L NS lactic acid WNL Chest x-ray: mild Left lung base disease, suggestive of atelectasis vs PNA vs aspiration CT head: No acute findings EKG: sinus tach -C/w zosyn and azithromycin -Ucx positive for gram negative uzma - blood cx taken on admission positive for MRSA, f/u sensitivities - Pharmacy vanc consult placed - f/u echo - ID consulted - f/u repeat blood cx - Negative legionella and pending pneuno urine ag -stable troponin -f/u am labs -Patient passed bedside swallow study, ok to advance diet -Pt downgraded to medical floor -IVF at 50mls/hr (2) End stage kidney disease ICD Codes: N18.6 - End stage renal disease Status: Chronic Plan: - nephrology consulted for HD management - HD normal schedule: Sunday - Patient received HD today - BUN/Cr: 34/3.81, at baseline compared to past labs -monitor electrolytes, I/O -renally dose meds -no nephrotoxic agents - f/u mag, phosphorus (3) COPD (chronic obstructive pulmonary disease) ICD Codes: J44.9 - Chronic obstructive pulmonary disease, unspecified Status: Chronic Plan: -c/w duoneb (4) Hypertension ICD Codes: I10 - Essential (primary) hypertension Status: Chronic Plan: -c/w home meds (5) Diabetes ICD Codes: E11.9 - Type 2 diabetes mellitus without complications Plan: -monitor BG chks - ssi low dose novolog scale -hold home meds (6) Nutrition, metabolism, and development symptoms ICD Codes: R63.8 - Other symptoms and signs concerning food and fluid intake Plan: Fluids: 50mls/hr Electrolytes: WNL, replete as needed Nutrition: renal diet DVT ppx: heparin 5,000 units Q8h SQ (April Bullard MD, R1) Problem Qualifiers (1) Sepsis: Qualified Codes: A41.9 - Sepsis, unspecified organism (2) Diabetes: April Bullard MD, R1 Jan 02, 2017 11:31 Charlene Mata MD Jan 02, 2017 16:02
[2017-01-02] MEDS ORDERED: Vancomycin Consult Pharmacy 1 EA OTHER SCH (15:15)
[2017-01-02] MEDS: AZITHROMYCIN INJ 500 MG in SODIUM CHLOR 0.9% 250 ML INJ 250 ML IV SCH (15:29)
--- NOTE | 2017-01-02 16:25 | PD.ID.CON ---
History of Present Illness Service ID Consult Requested By Dr Eubanks Reason for Consult bacteremia Primary Care Physician No Primary Care Physician Diagnoses: History of Present Illness 51-year-old female with multiple med problems, including ESRD/HD (Sunday, and Sunday) .via Permacath and hypertension, diabetes mellitus, history of cerebrovascular accident, chronic anemia, sleep apnea, presented from the retirement because of fever and foul smelling of the urine. on Sunday during dialysis she had fever. Blood cultures were done and she was given dose of vancomycin and ceftazidime during dialysis. She reports vancomycin allergic reaction to me ("burning all over, lip swelling) but could not ell me when that happen She is not a good historian, however Her urine is very abnormal and urine culture is growing a GNR and her blood clx are positive for MRSA She has Permacath as acces for a about 1 month Her CXR showed mild left lung base airspace disease, likely atelectasis She denies cough Review of Systems Constitutional: COMPLAINS OF: Fatigue, Fever, Chills Except as stated in HPI: all other systems reviewed are Neg Past Family Social History Allergies: Coded Allergies: fentanyl (Verified Allergy, Unknown, 10/25/16) morphine (Unverified Allergy, Unknown, 09/26/16) vancomycin (Verified Adverse Reaction, Severe, Rash, 10/17/16) Past Medical History 1. Hypertension. 2. Diabetes mellitus. 3. History of cerebrovascular accident. 4. End-stage renal disease on hemodialysis three times per week. 5. Chronic anemia. 6. Sleep apnea. 7. Atrial fibrillation. Past Surgical History History of PermCath placement. Active Ordered Medications Medications where reviewed in EMR Antibiotics Include: azithro vancomycin Family History reviewed Family history is noncontributory. Social History The patient lives at a nursing facility. There is no history of smoking or alcoholism. Physical Exam Vital Signs Vital Signs Date Time Temp Pulse Resp B/P (MAP) Pulse Ox O2 Delivery O2 Flow Rate FiO2 01/02/17 12:00 98.2 96 135/62 (86) 99 01/02/17 12:00 96 01/02/17 10:00 117 01/02/17 09:00 86 01/02/17 08:19 99 Nasal Cannula 1.50 01/02/17 08:00 86 01/02/17 08:00 98.5 86 126/61 (82) 100 01/02/17 06:00 82 01/02/17 04:00 98.1 84 20 120/61 (80) 96 01/02/17 04:00 81 01/02/17 02:00 87 01/02/17 00:00 98.1 80 108/61 (77) 100 01/02/17 00:00 82 01/01/17 22:00 81 01/01/17 20:26 100 Nasal Cannula 1.50 01/01/17 20:00 83 01/01/17 20:00 98.0 83 101/65 (77) 100 01/01/17 18:06 98.2 88 94/57 (69) 100 01/01/17 18:00 89 01/01/17 17:00 87 99/58 (72) 100 Physical Exam CONSTITUTIONAL/GENERAL: This is an adequately nourished patient, in no apparent distress. TUBES/LINES/DRAINS: Permacath in place, no erythema SKIN: No jaundice, rashes, or lesions. Skin temperature appropriate. Not diaphoretic. HEAD: Atraumatic. Normocephalic. EYES: Pupils equal and round and reactive. Extraocular motions intact. No scleral icterus. No injection or drainage. Fundi not examined. ENT: Hearing grossly normal. Oral mucosae dryish without visible erythema, exudates, masses, or lesions. NECK: Trachea midline. Supple, nontender. No palpable thyroid enlargement or nodularity. CARDIOVASCULAR: Regular rate and rhythm without murmurs, gallops, or rubs. No JVD. Peripheral pulses symmetric. RESPIRATORY/CHEST: Symmetric, unlabored respirations. Clear to auscultation. Breath sounds equal bilaterally. No wheezes, rales, or rhonchi. GASTROINTESTINAL: Abdomen soft, non-tender, nondistended. No hepato-splenomegaly , or palpable masses. No guarding. Bowel sounds present. GENITOURINARY: Without palpable bladder distension. Shah catheter in place with very clody purulent looking urine MUSCULOSKELETAL: Extremities without clubbing, cyanosis, or edema. Some tree bark szymanski presetn on b/l feet No joint tenderness or effusion noted. No calf tenderness. No mottling or clubbing. LYMPHATICS: No palpable cervical or supraclavicular adenopathy. NEUROLOGICAL: Lethargic, but arousable . Motor and sensory grossly within normal limits. Follows commands. Clear speech. Moves all extremities. PSYCHIATRIC: No obvious anxiety/depression. no apparent hallucinations or other psychotic thought process. Laboratory Laboratory Tests Test 01/01/17 16:20 01/01/17 21:06 Troponin I 0.07 0.05 Date/Time Source Procedure Growth Status 01/01/17 11:02 Blood Peripheral Aerobic Blood Culture - Preliminary NO GROWTH IN 1 DAY Resulted 01/01/17 11:02 Anaerobic Blood Culture - Preliminary Gram Positive Cocci Resulted 01/01/17 11:02 Urine Catheterized Urine Legionella Antigen - Final PRESUMPTIVE NEGATIVE FOR LEGIONELLA P... Complete 01/01/17 11:02 Urine Catheterized Urine Streptococcus pneumoniae Antigen (M - Final PRESUMPTIVE NEGATIVE FOR STREPTOCOCCU... Complete Result Diagram: 01/01/17 1102 01/01/17 1102 Imaging Last Impressions Chest X-Ray 01/01/17 1051 Signed Impressions: Service Date/Time: Sunday, January 01, 2017 11:16 - CONCLUSION: 1. Mild positive fluid balance. 2. Mild left lung base airspace disease, likely atelectasis although pneumonia or aspiration cannot be entirely excluded in the appropriate clinical setting. Jose Alberto Parker MD Head CT 01/01/17 0000 Signed Impressions: Service Date/Time: Sunday, January 01, 2017 17:56 - CONCLUSION: No acute findings. Wilner Bashir MD Assessment and Plan Assessment and Plan Sepsis UTI, GNB MRSA sepsis -liekly from Permacath Allergic reaction to vanco Doubt PNA cont zosyn add fdaptomycin 2 D echo joel oroithtimothy Pt will need Permcath removal repeat blood clx until documneted sterility Kristine Rick MD Jan 02, 2017 16:25
[2017-01-02 17:02] LABS: BASOPHIL % 0.3 % (0.0-2.0); EOSINOPHIL # 0.2 TH/MM3 (0-0.4); EOSINOPHIL % 1.8 % (0.0-4.0); HEMATOCRIT 27.8 % (35.0-46.0); HEMO FLAGS DIFF FINAL; LYMPH % 7.6 % (9.0-44.0); LYMPHOCYTE # 0.8 TH/MM3 (1.0-4.8); MEAN CELL VOLUME 100.2 FL (80.0-100.0); MEAN CORPUSCULAR HEMOGLOBIN 32.5 PG (27.0-34.0); MEAN CORPUSCULAR HGB CONC 32.5 % (32.0-36.0); MONO % 5.7 % (0.0-8.0); NEUT % 84.6 % (16.0-70.0); PLATELET COUNT 202 TH/MM3 (150-450); RED BLOOD COUNT 2.78 MIL/MM3 (4.00-5.30); RED CELL DISTRIBUTION WIDTH 16.9 % (11.6-17.2); WHITE BLOOD COUNT 10.6 TH/MM3 (4.0-11.0)
[2017-01-02 17:33] LABS: ALKALINE PHOSPHATASE 370 U/L (45-117); ALT (GPT) 36 U/L (10-53); ANION GAP 9 MEQ/L (5-15); AST (GOT) 41 U/L (15-37); BLOOD UREA NITROGEN 22 MG/DL (7-18); CHLORIDE 99 MEQ/L (98-107); GLOMERULAR FILTRATION RATE 19 ML/MIN (>89); POTASSIUM 4.1 MEQ/L (3.5-5.1); SODIUM (NA) 136 MEQ/L (136-145); TOTAL BILIRUBIN ADULT 0.6 MG/DL (0.2-1.0)
[2017-01-02] MEDS: DAPTOmycin INJ 600 MG in SODIUM CHLORIDE 0.9% INJ 100 ML IV SCH (18:12)
[2017-01-02 18:57] LABS: CREATINE KINASE 14 U/L (26-192)
[2017-01-02] MEDS: MONTELUKAST SODIUM 10 MG TAB PO SCH (21:16)
[2017-01-03] VITALS (10 sets, daily range): BP systolic 115–156; BP diastolic 55–72; PULSE 77–91; RESP 18; TEMP 97.9–99.4; O2SAT 87–100
[2017-01-03] MEDS: HEPARIN SODIUM - SQ 10,000 UNITS/ML VIAL SQ SCH ×3 (01:06→22:52)
[2017-01-03] MEDS: PIPERACIL-TAZO 2.25 GM PREMIX 50 ML IV SCH ×4 (01:06→23:27)
[2017-01-03] MEDS: RESP: ALBUTEROL 2.5 MG/IPRATROPIUM 0.5 MG NEB (SCH) NEB ×4 (03:54→16:00)
[2017-01-03] MEDS: cloNIDine HCL 0.1 MG TAB PO SCH ×3 (05:26→22:52)
[2017-01-03 06:47] LABS: ALT (GPT) 28 U/L (10-53)
[2017-01-03 06:49] LABS: ALKALINE PHOSPHATASE 431 U/L (45-117); ANION GAP 7 MEQ/L (5-15); AST (GOT) 38 U/L (15-37); BICARBONATE 26.7 MEQ/L (21.0-32.0); BLOOD UREA NITROGEN 28 MG/DL (7-18); CHLORIDE 98 MEQ/L (98-107); GLOMERULAR FILTRATION RATE 16 ML/MIN (>89); POTASSIUM 4.5 MEQ/L (3.5-5.1); SODIUM (NA) 132 MEQ/L (136-145); TOTAL BILIRUBIN ADULT 0.5 MG/DL (0.2-1.0)
[2017-01-03 07:10] LABS: AUTOMATED NEUTROPHIL # 7.4 TH/MM3 (1.8-7.7); BASOPHIL % 0.4 % (0.0-2.0); EOSINOPHIL # 0.3 TH/MM3 (0-0.4); EOSINOPHIL % 2.7 % (0.0-4.0); HEMATOCRIT 25.6 % (35.0-46.0); HEMO FLAGS DIFF FINAL; LYMPH % 15.8 % (9.0-44.0); LYMPHOCYTE # 1.6 TH/MM3 (1.0-4.8); MEAN CELL VOLUME 98.2 FL (80.0-100.0); MEAN CORPUSCULAR HGB CONC 34.6 % (32.0-36.0); MONO % 7.5 % (0.0-8.0); NEUT % 73.6 % (16.0-70.0); PLATELET COUNT 214 TH/MM3 (150-450); RED BLOOD COUNT 2.61 MIL/MM3 (4.00-5.30); WHITE BLOOD COUNT 10.1 TH/MM3 (4.0-11.0)
[2017-01-03] MEDS: SODIUM CHLORIDE 0.9% FLUSH 10 ML FLUSH IV FLUSH SCH ×2 (09:00→22:53)
[2017-01-03] MEDS: PANTOPRAZOLE SOD 40 MG DELAYED RELEASE TAB PO SCH (09:03)
[2017-01-03] MEDS: CHOLECALCIFEROL (VIT D3) 5000 UNIT CAP PO SCH (09:03)
[2017-01-03] MEDS: hydrALAZINE HCL 100 MG TAB PO SCH ×2 (09:03→13:19)
[2017-01-03] MEDS: amLODIPine BESYLATE 5 MG TAB PO SCH (09:03)
[2017-01-03] MEDS: PRAVASTATIN SOD 40 MG TAB PO SCH (09:03)
[2017-01-03] MEDS: METOPROLOL TARTRATE 25 MG TAB PO SCH (09:04)
[2017-01-03] MEDS: LACTOBACILLUS ACIDOPHILUS TAB PO SCH ×2 (09:04→12:00)
[2017-01-03] MEDS: DORZOLAMIDE 2% OPTH SOLN 200 DROP/10 ML BTLO EACH EYE SCH ×2 (09:06→22:55)
[2017-01-03] MEDS: DOCUSATE SODIUM 50 MG/SENNA 8.6 MG TAB PO SCH ×2 (09:06→21:00)
[2017-01-03] MEDS: FLUOROMETHOLONE 0.1% OPHT SUSP 5 ML BTL EACH EYE SCH ×2 (09:06→22:56)
--- NOTE | 2017-01-03 10:38 | HHI.FPPN ---
Subjective Remarks Patient seen and examined at bedside. No acute events overnight. Denies CP, SOB , cough, fever, chills, abdominal pain or back pain. Patient is eating well. She has no sxs or complaints. (April Bullard MD, R1) Objective Vitals Vital Signs Date Time Temp Pulse Resp B/P (MAP) Pulse Ox O2 Delivery O2 Flow Rate FiO2 01/03/17 08:12 100 Nasal Cannula 2.00 01/03/17 06:00 91 01/03/17 04:00 99.4 88 122/66 (84) 96 01/03/17 04:00 88 01/03/17 02:00 85 01/03/17 00:00 99.2 89 115/55 (75) 100 01/03/17 00:00 89 01/02/17 22:00 90 01/02/17 20:00 93 01/02/17 20:00 99.4 93 128/60 (82) 98 01/02/17 19:56 100 Nasal Cannula 1.50 01/02/17 18:00 97 01/02/17 16:00 98.0 99 117/52 (73) 89 01/02/17 16:00 99 01/02/17 14:00 96 01/02/17 12:00 98.2 96 135/62 (86) 99 01/02/17 12:00 96 I/O 01/02/17 01/02/17 01/02/17 01/03/17 01/03/17 01/03/17 07:00 15:00 23:00 07:00 15:00 23:00 Intake Total 675 ml 100 ml 480 ml 639 ml Output Total 75 ml 2000 ml 100 ml 125 ml Balance 600 ml -1900 ml 380 ml 514 ml Intake Oral 0 ml 480 ml 480 ml IV Total 675 ml 100 ml 159 ml Output Urine Total 75 ml 100 ml 125 ml Hemodialysis 2000 ml # Bowel Movements 1 1 1 (April Bullard MD, R1) Result Diagram: 01/03/1755501/03/17 0556 Objective Remarks GENERAL: This is a well-nourished, well-developed patient, obese female, siting in bed. AAOx3 SKIN: No rashes, ecchymoses or lesions. Cool and dry. No sacral ulcers or pressure wounds noted on inspection. HEAD: Atraumatic. Normocephalic. No temporal or scalp tenderness. EYES: Pupils equal round and dilated. Non-reactive to light BL. 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 Extraocular motions intact. No scleral icterus. No injection or drainage. ENT: Nose without bleeding, purulent drainage or septal hematoma. Throat without erythema, tonsillar hypertrophy or exudate. Uvula midline. Airway patent. NECK: Trachea midline. No JVD or lymphadenopathy. Supple, nontender, no meningeal signs. CARDIOVASCULAR: Normal s1 and s2. Regular rate and rhythm without murmurs, gallops, or rubs. RESPIRATORY: CTA BL. No wheezes, rales, or rhonchi. GASTROINTESTINAL: Abdomen soft, positive BS, non-tender, distended-obese abdomen. No hepato-splenomegaly, or palpable masses. No guarding. MUSCULOSKELETAL: Extremities without clubbing, cyanosis, or edema. No joint tenderness, effusion, or edema noted. No calf tenderness. Negative Homans sign bilaterally. Limited range of motion in all extremities more pronounce on LE on exam. 2/5 strength in LE BL. 3/5 strength in UE. NEUROLOGICAL: Awake and alert. Cranial nerves II through XII intact. Motor and sensory grossly within normal limits. Normal speech. (April Bullard MD, R1) Urinary Catheter: Yes (April Bullard MD, R1) A/P Assessment and Plan Patient is a 51-year-old female with medical history of diabetes, ESRD (on HD), COPD, A. fib, CVA [facility] to [facility] and suspected UTI. Patient admitted for management of severe sepsis due to UTI and/or PNA. AAOx3. Remained afebrile overnight. (April Bullard MD, R1) Attending Attestation Patient seen and examined. Case reviewed and discussed with the resident team. Agree with plan of care as discussed with me and documented in the resident note. (Charlene Mata MD) Problem List: (1) Sepsis ICD Codes: A41.9 - Sepsis, unspecified organism Status: Acute Plan: Patient found to meet severe sepsis criteria on admission with possible source being urinary and/or lungs. Other possible differential diagnoses include stroke, DKA, or NH. On admission patient found to have altered mental status, febrile, tachycardia, positive leukocytosis, UA with positive leukocytes esterase and moderate white blood cell clumps. BP WNL, O2 sat 95-98% on 2 L NS lactic acid WNL Chest x-ray: mild Left lung base disease, suggestive of atelectasis vs PNA vs aspiration CT head: No acute findings EKG: sinus tach - Negative legionella and pending pneuno urine ag -stable troponin -Ucx positive for klebsiella and pseudomonas -Blood cx taken on admission positive for MRSA, f/u sensitivities ID consulted, recommendations appreciated -C/w Zosyn -PNA not likely, Azithromycin discontinued on 01/03 -Pt started on daptomycin for MRSA bacteremia -Replace perm cath as it is likely source of bacteremia - f/u cath tip culture - c/w repeat blood cx until documented sterility -WBC-10.1, downtrending -f/u am labs, echo -No events on Tele monitor overnight, tele d/c'ed today -IVF at 50mls/hr -Pt awaiting downgraded to medical floor, pending bed availability (2) End stage kidney disease ICD Codes: N18.6 - End stage renal disease Status: Chronic Plan: - nephrology following for HD management - HD normal schedule: Sunday - Patient received HD yesterday 01/02 - BUN/Cr: 28/3.15, at baseline compared to past labs -monitor electrolytes, I/O -renally dose meds -no nephrotoxic agents - mag-2.5, phosphorus-3.5 (3) COPD (chronic obstructive pulmonary disease) ICD Codes: J44.9 - Chronic obstructive pulmonary disease, unspecified Status: Chronic Plan: -c/w duoneb (4) Hypertension ICD Codes: I10 - Essential (primary) hypertension Status: Chronic Plan: -c/w home meds (5) Diabetes ICD Codes: E11.9 - Type 2 diabetes mellitus without complications Plan: -monitor BG chks -ssi low dose novolog scale -hold home meds (6) Nutrition, metabolism, and development symptoms ICD Codes: R63.8 - Other symptoms and signs concerning food and fluid intake Plan: Fluids: 50mls/hr Electrolytes: WNL, replete as needed Nutrition: renal diet DVT ppx: heparin 5,000 units Q8h SQ (April Bullard MD, R1) Problem Qualifiers (1) Sepsis: Qualified Codes: A41.9 - Sepsis, unspecified organism (2) Diabetes: April Bullard MD, R1 Jan 03, 2017 10:38 Charlene Mata MD Jan 03, 2017 12:33
[2017-01-03] MEDS: INSULIN ASPART SUPPLEMENTAL SCALE SQ SCH ×2 (12:00→22:57)
--- NOTE | 2017-01-03 12:12 | ECHRPT ---
Indication: R/O Vegetations CONCLUSIONS The left ventricular systolic function is normal with an estimated ejection fraction in the range of 60-65%. Mild concentric left ventricular hypertrophy. Normal left ventricular size. Trivial pulmonary valve regurgitation. There is moderate to severe tricuspid valve regurgitation. The estimated pulmonary arterial pressure is 55.7 mmHg. BP: / HR: 92 Rhythm: Sinus MEASUREMENTS (Male / Female) Normal Values Technical Quality:Fair 2D ECHO LV Diastolic Diameter PLAX 4.4 cm 4.2 - 5.9 / 3.9 - 5.3 cm LV Systolic Diameter PLAX 3.2 cm IVS Diastolic Thickness 1.3 cm 0.6 - 1.0 / 0.6 - 0.9 cm LVPW Diastolic Thickness 1.3 cm 0.6 - 1.0 / 0.6 - 0.9 cm LV Relative Wall Thickness 0.6 DOPPLER TR Peak Velocity 338.0 cm/s TR Peak Gradient 45.7 mmHg Right Atrial Pressure 10.0 mmHg Pulmonary Artery Systolic Pressu 55.7 mmHg Right Ventricular Systolic Press 55.7 mmHg PV Peak Velocity 122.0 cm/s PV Peak Gradient 6.0 mmHg FINDINGS LEFT VENTRICLE The left ventricular systolic function is normal with an estimated ejection fraction in the range of 60-65%. Mild concentric left ventricular hypertrophy. Normal left ventricular size. RIGHT VENTRICLE Normal right ventricular size and systolic function. LEFT ATRIUM The left atrial size is normal. RIGHT ATRIUM The right atrial size is normal. ATRIAL SEPTUM Normal atrial septal thickness without atrial level shunting by limited color doppler interrogation. AORTA The aortic root and proximal ascending aorta are normal in size on limited imaging. MITRAL VALVE Structurally normal mitral valve. No mitral valve stenosis or regurgitation. AORTIC VALVE Trileaflet aortic valve. No aortic valve stenosis or regurgitation. TRICUSPID VALVE There is moderate to severe tricuspid valve regurgitation. The estimated pulmonary arterial pressure is 55.7 mmHg. PULMONARY VALVE Trivial pulmonary valve regurgitation. VESSELS The inferior vena cava is normal in size. PERICARDIUM No pericardial effusion. Ventura Ramirez MD, FACC (Electronically Signed) Final Date:03 January 2017 12:12
--- NOTE | 2017-01-03 16:09 | PD.RAD ---
Post Procedure Progress Note Pre Procedure Diagnosis: (1) End stage kidney disease (2) Sepsis Post Procedure Diagnosis: (1) End stage kidney disease (2) Sepsis Procedure Date: Jan 03, 2017 Supervising Radiologist: Wilner Potter JR Proceduralist/Assist: Mercedes Quigley, RT(R)(), Cheryl Ayers RT(R)(CV) Anesthesia: Local Plan of Activity Patient to Unit: Nursing Unit Patient Condition: Good See PACS Report for procedural detail/treatment Central Venous Access Device Procedure 1 Right Internal Jugular Hemodialysis Catheter Tunneled Removal Procedure 2 Right Internal Jugular Hemodialysis Catheter Non-Tunneled Placement Findings: Existing Permcath removed without difficulty. A new Vascath was placed. In good position and functions well. OK to use. Jr Tariq.,Wilner Mitchell MD Jan 03, 2017 16:09
[2017-01-03] MEDS ORDERED: HEPARIN SODIUM - IV 2,000 UNITS/2 ML VIAL IV FLUSH PRN (16:15)
[2017-01-03] MEDS ORDERED: SODIUM CHLORIDE 0.9% FLUSH 10 ML FLUSH IV FLUSH PRN (16:15)
--- NOTE | 2017-01-03 17:15 | HHI.IDPN ---
Subjective Subjective Remarks sp Permcath remova Vascath in no fever repeat BC neg @ 1 day Antibiotics dapto zosyn Allergies: Coded Allergies: fentanyl (Verified Allergy, Unknown, 10/25/16) morphine (Unverified Allergy, Unknown, 09/26/16) vancomycin (Verified Adverse Reaction, Severe, Rash, 10/17/16) Objective . Vital Signs Date Time Temp Pulse Resp B/P (MAP) Pulse Ox O2 Delivery O2 Flow Rate FiO2 01/03/17 12:00 98.7 77 139/69 (92) 87 01/03/17 12:00 77 01/03/17 10:00 83 01/03/17 10:00 87 01/03/17 08:12 100 Nasal Cannula 2.00 01/03/17 08:00 83 01/03/17 08:00 99.2 83 139/65 (89) 100 01/03/17 06:00 91 01/03/17 04:00 99.4 88 122/66 (84) 96 01/03/17 04:00 88 01/03/17 02:00 85 01/03/17 00:00 99.2 89 115/55 (75) 100 01/03/17 00:00 89 01/02/17 22:00 90 01/02/17 20:00 93 01/02/17 20:00 99.4 93 128/60 (82) 98 01/02/17 19:56 100 Nasal Cannula 1.50 01/02/17 18:00 97 . Laboratory Tests Test 01/02/17 15:50 01/03/17 05:56 White Blood Count 10.6 TH/MM3 10.1 TH/MM3 Red Blood Count 2.78 MIL/MM3 2.61 MIL/MM3 Hemoglobin 9.0 GM/DL 8.9 GM/DL Hematocrit 27.8 % 25.6 % Mean Corpuscular Volume 100.2 FL 98.2 FL Mean Corpuscular Hemoglobin 32.5 PG 34.0 PG Mean Corpuscular Hemoglobin Concent 32.5 % 34.6 % Red Cell Distribution Width 16.9 % 17.0 % Platelet Count 202 TH/MM3 214 TH/MM3 Mean Platelet Volume 8.8 FL 9.3 FL Neutrophils (%) (Auto) 84.6 % 73.6 % Lymphocytes (%) (Auto) 7.6 % 15.8 % Monocytes (%) (Auto) 5.7 % 7.5 % Eosinophils (%) (Auto) 1.8 % 2.7 % Basophils (%) (Auto) 0.3 % 0.4 % Neutrophils # (Auto) 9.0 TH/MM3 7.4 TH/MM3 Lymphocytes # (Auto) 0.8 TH/MM3 1.6 TH/MM3 Monocytes # (Auto) 0.6 TH/MM3 0.8 TH/MM3 Eosinophils # (Auto) 0.2 TH/MM3 0.3 TH/MM3 Basophils # (Auto) 0.0 TH/MM3 0.0 TH/MM3 CBC Comment DIFF FINAL DIFF FINAL Differential Comment Laboratory Tests Test 01/01/17 21:06 01/02/17 15:50 01/03/17 05:56 Troponin I 0.05 NG/ML Blood Urea Nitrogen 22 MG/DL 28 MG/DL Creatinine 2.64 MG/DL 3.15 MG/DL Random Glucose 168 MG/DL 164 MG/DL Total Protein 8.6 GM/DL 8.4 GM/DL Albumin 2.4 GM/DL 2.2 GM/DL Calcium Level 8.6 MG/DL 8.8 MG/DL Alkaline Phosphatase 370 U/L 431 U/L Aspartate Amino Transf (AST/SGOT) 41 U/L 38 U/L Alanine Aminotransferase (ALT/SGPT) 36 U/L 28 U/L Total Bilirubin 0.6 MG/DL 0.5 MG/DL Sodium Level 136 MEQ/L 132 MEQ/L Potassium Level 4.1 MEQ/L 4.5 MEQ/L Chloride Level 99 MEQ/L 98 MEQ/L Carbon Dioxide Level 28.0 MEQ/L 26.7 MEQ/L Anion Gap 9 MEQ/L 7 MEQ/L Estimat Glomerular Filtration Rate 19 ML/MIN 16 ML/MIN Total Creatine Kinase 14 U/L Microbiology Date/Time Source Procedure Growth Status 01/02/17 16:00 Blood Peripheral Aerobic Blood Culture - Preliminary NO GROWTH IN 1 DAY Resulted 01/02/17 16:00 Blood Peripheral Anaerobic Blood Culture - Preliminary NO GROWTH IN 1 DAY Resulted 01/02/17 15:50 Blood Peripheral Aerobic Blood Culture - Preliminary NO GROWTH IN 1 DAY Resulted 01/02/17 15:50 Blood Peripheral Anaerobic Blood Culture - Preliminary NO GROWTH IN 1 DAY Resulted 01/01/17 11:02 Blood Peripheral Aerobic Blood Culture - Preliminary NO GROWTH IN 2 DAYS Resulted 01/01/17 11:02 Anaerobic Blood Culture - Preliminary S. Aureus Mrsa Resulted 01/01/17 10:52 Blood Peripheral Aerobic Blood Culture - Final Staph Sp Coagulase Positive Resulted 01/01/17 10:52 Anaerobic Blood Culture - Preliminary S. Aureus Mrsa Resulted 01/01/17 11:02 Urine Catheterized Urine Legionella Antigen - Final PRESUMPTIVE NEGATIVE FOR LEGIONELLA P... Complete 01/01/17 11:02 Urine Catheterized Urine Streptococcus pneumoniae Antigen (M - Final PRESUMPTIVE NEGATIVE FOR STREPTOCOCCU... Complete 01/01/17 11:02 Urine Catheterized Urine Urine Culture - Preliminary Pseudomonas Aeruginosa Klebsiella Pneumoniae Resulted Imaging Last Impressions Chest X-Ray 01/01/17 1051 Signed Impressions: Service Date/Time: Sunday, January 01, 2017 11:16 - CONCLUSION: 1. Mild positive fluid balance. 2. Mild left lung base airspace disease, likely atelectasis although pneumonia or aspiration cannot be entirely excluded in the appropriate clinical setting. Jose Alberto Parker MD Head CT 01/01/17 0000 Signed Impressions: Service Date/Time: Sunday, January 01, 2017 17:56 - CONCLUSION: No acute findings. Wilner Bashir MD Physical Exam CONSTITUTIONAL/GENERAL: This is an adequately nourished patient, in no apparent distress, but very drosy after procedure TUBES/LINES/DRAINS: Permacath in place, no erythema SKIN: No jaundice, rashes, or lesions. Skin temperature appropriate. Not diaphoretic. EYES: Pupils equal and round and reactive. Extraocular motions intact. No scleral icterus. No injection or drainage. Fundi not examined. CARDIOVASCULAR: Regular rate and rhythm without murmurs, gallops, or rubs. No JVD. Peripheral pulses symmetric. RESPIRATORY/CHEST: Symmetric, unlabored respirations. Clear to auscultation. Breath sounds equal bilaterally. GASTROINTESTINAL: Abdomen soft, non-tender,mildly distended. MUSCULOSKELETAL: Extremities without clubbing, cyanosis, or edema. Some tree bark szymanski presetn on b/l feet No joint tenderness or effusion noted. No calf tenderness. No mottling or clubbing. : black cath in place NEUROLOGICAL: Lethargic post procedure . PSYCHIATRIC:unable to assess, medicated Assessment & Plan Remarks Sepsis UTI, Kleb. PSAE MRSA sepsis -liekly from Permacath - sp removal of Permacath - 2 D echo negative Allergic reaction to vanco Doubt PNA cont zosyn cont daptomycin dc azithro New Permcath can be put in after blood sterility documented keep repeating blood clx until documneted sterility if more positive clx after Permacath removal will get [place] dw Princess Potter (radilogy), Kristine Rodriguez MD Jan 03, 2017 17:15
--- NOTE | 2017-01-03 17:40 | RADRPT ---
EXAM DATE/TIME: 01/03/2017 15:22 [place] COMPARISON: No previous studies available for comparison. INDICATIONS : Patient with infected perm cath. Needs vas cath. MEDICAL HISTORY : 1. DM 2. HTN 3. ESRD 4. CVA 5. A fib 6. Chronic anemia SURGICAL HISTORY : 1. perm cath right ENCOUNTER: Initial ACUITY: 4-6 days PAIN SCORE: FLUORO TIME: 0.3 minutes IMAGE SERIES: 1 ACCESS: Right internal jugular vein DEVICE(S): 1.) 14 [place] dual lumen 15 cm Schon catheter PROCEDURE : 1. Ultrasound guided venipuncture. 2. Fluoroscopic guidance. 3. Central line placement. The risks, benefits and alternatives to the procedure were explained and verbal and written consent w as obtained. The site was prepped in sterile fashion. Full sterile technique was used, including ca p, mask, sterile gloves and gown and a large sterile sheet. Hand hygiene and 2% chlorhexidine prep w as utilized per protocol for cutaneous antisepsis with appropriate dry time for site. Sterile gel an d sterile probe cover were utilized for ultrasound guidance. The skin and subcutaneous tissues were infiltrated with local anesthetic solution. A suitable site a obie the vein was selected with ultrasound and fluoroscopic guidance. A small incision was made. Th e vein was accessed under direct ultrasound visualization using the micropuncture technique. The adrian ropuncture set was exchanged for a 0.035 wire. The tract was dilated. The catheter was advanced int o position under direct fluoroscopic visualization. The catheter was fixed in place with suture and a sterile dressing was applied. The patient tolerated the procedure well and there were no complications. CONCLUSION: Uncomplicated line placement as above. Wilner Potter Jr., MD on January 03, 2017 at 17:38 Board Certified Radiologist. This report was verified electronically.
--- NOTE | 2017-01-03 18:52 | HHI.NPPN ---
Subjective General Problems: Anemia, Edema Renal Failure: End Stage Renal Disease History of Present Illness 51-year-old female known to me from before with past medical history of hypertension, diabetes mellitus, end-stage renal disease on hemodialysis started recently, history of cerebrovascular accident, chronic anemia, sleep apnea, [facility] of [facility] and foul smelling of the urine. I was called to see the patient for the management of dialysis. She has been on hemodialysis Sunday, and Sunday. Additional Remarks Patient is alert, with nasal cannula, not in distress, seen in AM. Review of Systems General Constitutional: Fatigue Respiratory Lungs: SOB Cardiovascular Cardiac: Edema, BALL Objective Data Data Vital Signs Date Time Temp Pulse Resp B/P (MAP) Pulse Ox O2 Delivery O2 Flow Rate FiO2 01/03/17 12:00 98.7 77 139/69 (92) 87 01/03/17 12:00 77 01/03/17 10:00 83 01/03/17 10:00 87 01/03/17 08:12 100 Nasal Cannula 2.00 01/03/17 08:00 83 01/03/17 08:00 99.2 83 139/65 (89) 100 01/03/17 06:00 91 01/03/17 04:00 99.4 88 122/66 (84) 96 01/03/17 04:00 88 01/03/17 02:00 85 01/03/17 00:00 99.2 89 115/55 (75) 100 01/03/17 00:00 89 01/02/17 22:00 90 01/02/17 20:00 93 01/02/17 20:00 99.4 93 128/60 (82) 98 01/02/17 19:56 100 Nasal Cannula 1.50 -: 01/03/17 0556 01/03/17 0556 Microbiology 01/03/17 Wound Culture, Received Pending Physical Exam General Appearance: No Acute Distress, Comfortable Eyes Eye Exam: Pupils Equal Throat Throat Exam: Oral Mucosa [place] & Moist Pulmonary Resp Exam: No Distress, Crackles, Rhonchi, Decreased Bases, Diminished Breath Sounds Cardiology CV Exam: Regular, Normal Sinus Rhythm Gastrointestinal/Abdomen GI Exam: Soft, Non-Tender, Bowel Sounds Present Extremeties Extremities Exam: Moderate Edema Neurologic Neuro Exam: Alert, Awake, Oriented Psychiatric Psych Exam: Appropriate Responses Assessment/Plan Assessment Summary: Anemia of CKD, Fluid/Volume Overload, End Stage Renal Disease Problem List: (1) Hypertension ICD Codes: I10 - Essential (primary) hypertension Status: Chronic (2) COPD (chronic obstructive pulmonary disease) ICD Codes: J44.9 - Chronic obstructive pulmonary disease, unspecified Status: Chronic (3) Diabetes mellitus type 2, uncontrolled ICD Codes: E11.65 - Uncontrolled type 2 diabetes mellitus Status: Chronic (4) UTI (urinary tract infection) ICD Codes: N39.0 - Urinary tract infection Status: Acute (5) CVA (cerebral infarction) ICD Codes: I63.9 - CVA (cerebral infarction) Status: Acute Plan Patient has been afebrile now. On Azithromycin and Zosyn. HD now, removing 3 liters. BP is stable. HD again in AM to put her back on TTS due to Holidays. On Epogen with HD for anemia. Blood culture showing MRSA, and the urine culture is positive for Klebsiella and pseudomonas. On Meropenem and Daptomycin. ID is following. HD done last night. Has Vascath done after PermCath removal. Zi Kemp MD Jan 03, 2017 18:52
[2017-01-03] MEDS: MONTELUKAST SODIUM 10 MG TAB PO SCH (22:52)
[2017-01-04] VITALS (12 sets, daily range): BP systolic 120–158; BP diastolic 60–77; PULSE 67–88; RESP 18–20; TEMP 97.5–98.4; O2SAT 93–100
[2017-01-04] MEDS: RESP: ALBUTEROL 2.5 MG/IPRATROPIUM 0.5 MG NEB (SCH) NEB ×6 (00:52→19:32)
[2017-01-04] MEDS: PIPERACIL-TAZO 2.25 GM PREMIX 50 ML IV SCH (05:19)
[2017-01-04] MEDS: cloNIDine HCL 0.1 MG TAB PO SCH ×3 (05:19→21:57)
--- NOTE | 2017-01-04 07:11 | HHI.FPPN ---
Subjective Remarks Patient is awake and alert and joking around this morning. She denies any complaints. Denies CP, SOB. She is incontinent of urine which is chronic. Objective Vitals Vital Signs Date Time Temp Pulse Resp B/P (MAP) Pulse Ox O2 Delivery O2 Flow Rate FiO2 01/04/17 04:48 82 01/04/17 04:28 98 Nasal Cannula 2.00 01/04/17 04:00 97.6 85 18 157/77 (103) 98 01/04/17 00:56 93 Nasal Cannula 2.00 01/04/17 00:00 97.8 86 18 149/71 (97) 100 01/03/17 21:55 92 Nasal Cannula 2.00 01/03/17 20:00 97.9 82 18 156/72 (100) 100 01/03/17 12:00 98.7 77 139/69 (92) 87 01/03/17 12:00 77 01/03/17 10:00 83 01/03/17 10:00 87 01/03/17 08:12 100 Nasal Cannula 2.00 01/03/17 08:00 83 01/03/17 08:00 99.2 83 139/65 (89) 100 I/O 01/03/17 01/03/17 01/03/17 01/04/17 01/04/17 01/04/17 07:00 15:00 23:00 07:00 15:00 23:00 Intake Total 639 ml Output Total 125 ml 4000 ml Balance 514 ml -4000 ml Intake Oral 480 ml IV Total 159 ml Output Urine Total 125 ml Hemodialysis 4000 ml # Bowel Movements 1 Result Diagram: 01/03/17 0556 01/03/17 0556 Other Results O. CONSTITUTIONAL/GEN: normally nourished, in NAD. EYES: conjunctiva normal, PERRLA, EOMI. LUNGS: clear A-P, respiratory effort is normal. CARDIOVASCULAR: RR without murmur or gallop. No significant edema. GI/ABD: soft without masses, without organomegaly. : no CVA tenderness SKIN: color normal, no rashes noted. PSYCH/MENTAL STATUS: Alert and oriented x 3. Imaging Last Impressions Catheter Placement X-Ray 01/03/17 0000 Signed Impressions: Service Date/Time: Tuesday, January 03, 2017 15:22 - CONCLUSION: Uncomplicated line placement as above. Wilner Potter Jr., MD Chest X-Ray 01/01/17 1051 Signed Impressions: Service Date/Time: Sunday, January 01, 2017 11:16 - CONCLUSION: 1. Mild positive fluid balance. 2. Mild left lung base airspace disease, likely atelectasis although pneumonia or aspiration cannot be entirely excluded in the appropriate clinical setting. Jose Alberto Parker MD Head CT 01/01/17 0000 Signed Impressions: Service Date/Time: Sunday, January 01, 2017 17:56 - CONCLUSION: No acute findings. Wilner Bashir MD Objective Remarks GENERAL: This is a well-nourished, well-developed patient, obese female, siting in bed. AAOx3 SKIN: No rashes, ecchymoses or lesions. Cool and dry. No sacral ulcers or pressure wounds noted on inspection. HEAD: Atraumatic. Normocephalic. No temporal or scalp tenderness. EYES: Pupils equal round and dilated. Non-reactive to light BL. 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 Extraocular motions intact. No scleral icterus. No injection or drainage. ENT: Nose without bleeding, purulent drainage or septal hematoma. Throat without erythema, tonsillar hypertrophy or exudate. Uvula midline. Airway patent. NECK: Trachea midline. No JVD or lymphadenopathy. Supple, nontender, no meningeal signs. CARDIOVASCULAR: Normal s1 and s2. Regular rate and rhythm without murmurs, gallops, or rubs. RESPIRATORY: CTA BL. No wheezes, rales, or rhonchi. GASTROINTESTINAL: Abdomen soft, positive BS, non-tender, distended-obese abdomen. No hepato-splenomegaly, or palpable masses. No guarding. MUSCULOSKELETAL: Extremities without clubbing, cyanosis, or edema. No joint tenderness, effusion, or edema noted. No calf tenderness. Negative Homans sign bilaterally. Limited range of motion in all extremities more pronounce on LE on exam. 2/5 strength in LE BL. 3/5 strength in UE. NEUROLOGICAL: Awake and alert. Cranial nerves II through XII intact. Motor and sensory grossly within normal limits. Normal speech. A/P Assessment and Plan Patient is a 51-year-old female with medical history of diabetes, ESRD (on HD), COPD, A. fib, CVA [facility] due to [facility] and suspected UTI. Patient admitted for management of severe sepsis due to UTI and bacteremia from suspected permcath infection. AAOx3. Remained afebrile overnight. Problem List: (1) Sepsis ICD Codes: A41.9 - Sepsis, unspecified organism Status: Acute Plan: Patient found to meet severe sepsis criteria on admission with possible source being urinary and/or lungs based on CXR on admission. Since admission and patient is more alert and oriented it is clear she does not have any respiratory complaints and PNA is unlikely. Blood cultures grew MRSA and suspected source was the permcath. With ID assistance antibiotics have been tailored to treat the MRSA bacteremia and the UTI from Klebsiella and Pseudomonas. Patient is currently on Zosyn and Daptomycin. (Zithromax was d/c on 01/03) - PermCath was removed and culture tip is pending - New PermCath was inserted as patient is due for dialysis today again - Echo was negative. - Continue to follow cultures -- repeat urine and blood cultures sent today. Consider [place] if repeat cultures are positive. - Continue IVF -- consider dc tomorrow if pt continues to do well. (2) End stage kidney disease ICD Codes: N18.6 - End stage renal disease Status: Chronic Plan: - nephrology following for HD management - HD normal schedule: Sunday - Patient received HD 01/02, 01/03 and per nephrology note will also receive today 01/04 to get back on her T,T,S schedule. -monitor electrolytes, I/O -renally dose meds -no nephrotoxic agents (3) COPD (chronic obstructive pulmonary disease) ICD Codes: J44.9 - Chronic obstructive pulmonary disease, unspecified Status: Chronic Plan: -c/w duoneb (4) Hypertension ICD Codes: I10 - Essential (primary) hypertension Status: Chronic Plan: -c/w home meds (5) Diabetes ICD Codes: E11.9 - Type 2 diabetes mellitus without complications Plan: -monitor BG chks -ssi low dose novolog scale -hold home meds (6) Nutrition, metabolism, and development symptoms ICD Codes: R63.8 - Other symptoms and signs concerning food and fluid intake Plan: Fluids: 50mls/hr Electrolytes: WNL, replete as needed Nutrition: renal diet DVT ppx: heparin 5,000 units Q8h SQ Problem Qualifiers (1) Sepsis: Qualified Codes: A41.9 - Sepsis, unspecified organism (2) Diabetes: Charlene Mata MD Jan 04, 2017 07:11
[2017-01-04 07:30] LABS: AUTOMATED NEUTROPHIL # 6.7 TH/MM3 (1.8-7.7); BASOPHIL % 0.5 % (0.0-2.0); EOSINOPHIL # 0.3 TH/MM3 (0-0.4); EOSINOPHIL % 3.6 % (0.0-4.0); HEMATOCRIT 27.8 % (35.0-46.0); HEMO FLAGS DIFF FINAL; LYMPH % 14.3 % (9.0-44.0); LYMPHOCYTE # 1.2 TH/MM3 (1.0-4.8); MEAN CELL VOLUME 98.8 FL (80.0-100.0); MEAN CORPUSCULAR HEMOGLOBIN 32.9 PG (27.0-34.0); MEAN CORPUSCULAR HGB CONC 33.3 % (32.0-36.0); MONO % 4.9 % (0.0-8.0); NEUT % 76.7 % (16.0-70.0); PLATELET COUNT 261 TH/MM3 (150-450); RED BLOOD COUNT 2.81 MIL/MM3 (4.00-5.30); RED CELL DISTRIBUTION WIDTH 16.6 % (11.6-17.2); WHITE BLOOD COUNT 8.8 TH/MM3 (4.0-11.0)
[2017-01-04 07:59] LABS: ALKALINE PHOSPHATASE 454 U/L (45-117); ALT (GPT) 30 U/L (10-53); ANION GAP 12 MEQ/L (5-15); AST (GOT) 30 U/L (15-37); BICARBONATE 26.4 MEQ/L (21.0-32.0); BLOOD UREA NITROGEN 25 MG/DL (7-18); CHLORIDE 95 MEQ/L (98-107); GLOMERULAR FILTRATION RATE 16 ML/MIN (>89); POTASSIUM 3.9 MEQ/L (3.5-5.1); SODIUM (NA) 133 MEQ/L (136-145); TOTAL BILIRUBIN ADULT 0.5 MG/DL (0.2-1.0)
[2017-01-04] MEDS: SODIUM CHLORIDE 0.9% FLUSH 10 ML FLUSH IV FLUSH SCH ×2 (10:12→21:57)
[2017-01-04] MEDS: LACTOBACILLUS ACIDOPHILUS TAB PO SCH ×4 (10:12→18:26)
[2017-01-04] MEDS: hydrALAZINE HCL 100 MG TAB PO SCH ×3 (10:12→18:26)
[2017-01-04] MEDS: CHOLECALCIFEROL (VIT D3) 5000 UNIT CAP PO SCH (10:14)
[2017-01-04] MEDS: PANTOPRAZOLE SOD 40 MG DELAYED RELEASE TAB PO SCH (10:14)
[2017-01-04] MEDS: INSULIN ASPART SUPPLEMENTAL SCALE SQ SCH ×4 (10:14→21:56)
[2017-01-04] MEDS: HEPARIN SODIUM - SQ 10,000 UNITS/ML VIAL SQ SCH ×3 (10:14→22:24)
[2017-01-04] MEDS: PRAVASTATIN SOD 40 MG TAB PO SCH (10:15)
[2017-01-04] MEDS: DOCUSATE SODIUM 50 MG/SENNA 8.6 MG TAB PO SCH ×2 (10:15→21:57)
[2017-01-04] MEDS: METOPROLOL TARTRATE 25 MG TAB PO SCH (10:15)
[2017-01-04] MEDS: amLODIPine BESYLATE 5 MG TAB PO SCH (10:16)
[2017-01-04] MEDS: DORZOLAMIDE 2% OPTH SOLN 200 DROP/10 ML BTLO EACH EYE SCH ×2 (10:19→21:58)
[2017-01-04] MEDS: FLUOROMETHOLONE 0.1% OPHT SUSP 5 ML BTL EACH EYE SCH ×2 (10:20→21:58)
[2017-01-04] MEDS ORDERED: MISCELLANEOUS PHARMACY INFORMATION XX PRN (11:15)
[2017-01-04] MEDS ORDERED: ASP: Documented ESBL, MDR A baumannii or P. aeruginosa PRN (11:15)
--- NOTE | 2017-01-04 11:35 | HHI.IDPN ---
Subjective Subjective Remarks sp Permcath removal Vascath in no fever repeat BC neg @ 2 days co smelly cloudy urine very oliguric, voids infrequently not every day Antibiotics dapto zosyn Allergies: Coded Allergies: fentanyl (Verified Allergy, Unknown, 10/25/16) morphine (Unverified Allergy, Unknown, 09/26/16) vancomycin (Verified Adverse Reaction, Severe, Rash, 10/17/16) Objective . Vital Signs Date Time Temp Pulse Resp B/P (MAP) Pulse Ox O2 Delivery O2 Flow Rate FiO2 01/04/17 07:48 100 Nasal Cannula 2.00 01/04/17 04:48 82 01/04/17 04:28 98 Nasal Cannula 2.00 01/04/17 04:00 97.6 85 18 157/77 (103) 98 01/04/17 00:56 93 Nasal Cannula 2.00 01/04/17 00:00 97.8 86 18 149/71 (97) 100 01/03/17 21:55 92 Nasal Cannula 2.00 01/03/17 20:00 97.9 82 18 156/72 (100) 100 01/03/17 12:00 98.7 77 139/69 (92) 87 01/03/17 12:00 77 . Laboratory Tests Test 01/02/17 15:50 01/03/17 05:56 01/04/17 06:15 White Blood Count 10.6 TH/MM3 10.1 TH/MM3 8.8 TH/MM3 Red Blood Count 2.78 MIL/MM3 2.61 MIL/MM3 2.81 MIL/MM3 Hemoglobin 9.0 GM/DL 8.9 GM/DL 9.2 GM/DL Hematocrit 27.8 % 25.6 % 27.8 % Mean Corpuscular Volume 100.2 FL 98.2 FL 98.8 FL Mean Corpuscular Hemoglobin 32.5 PG 34.0 PG 32.9 PG Mean Corpuscular Hemoglobin Concent 32.5 % 34.6 % 33.3 % Red Cell Distribution Width 16.9 % 17.0 % 16.6 % Platelet Count 202 TH/MM3 214 TH/MM3 261 TH/MM3 Mean Platelet Volume 8.8 FL 9.3 FL 7.8 FL Neutrophils (%) (Auto) 84.6 % 73.6 % 76.7 % Lymphocytes (%) (Auto) 7.6 % 15.8 % 14.3 % Monocytes (%) (Auto) 5.7 % 7.5 % 4.9 % Eosinophils (%) (Auto) 1.8 % 2.7 % 3.6 % Basophils (%) (Auto) 0.3 % 0.4 % 0.5 % Neutrophils # (Auto) 9.0 TH/MM3 7.4 TH/MM3 6.7 TH/MM3 Lymphocytes # (Auto) 0.8 TH/MM3 1.6 TH/MM3 1.2 TH/MM3 Monocytes # (Auto) 0.6 TH/MM3 0.8 TH/MM3 0.4 TH/MM3 Eosinophils # (Auto) 0.2 TH/MM3 0.3 TH/MM3 0.3 TH/MM3 Basophils # (Auto) 0.0 TH/MM3 0.0 TH/MM3 0.0 TH/MM3 CBC Comment DIFF FINAL DIFF FINAL DIFF FINAL Differential Comment Laboratory Tests Test 01/02/17 15:50 01/03/17 05:56 01/04/17 06:15 Blood Urea Nitrogen 22 MG/DL 28 MG/DL 25 MG/DL Creatinine 2.64 MG/DL 3.15 MG/DL 3.08 MG/DL Random Glucose 168 MG/DL 164 MG/DL 200 MG/DL Total Protein 8.6 GM/DL 8.4 GM/DL 8.8 GM/DL Albumin 2.4 GM/DL 2.2 GM/DL 2.2 GM/DL Calcium Level 8.6 MG/DL 8.8 MG/DL 9.0 MG/DL Alkaline Phosphatase 370 U/L 431 U/L 454 U/L Aspartate Amino Transf (AST/SGOT) 41 U/L 38 U/L 30 U/L Alanine Aminotransferase (ALT/SGPT) 36 U/L 28 U/L 30 U/L Total Bilirubin 0.6 MG/DL 0.5 MG/DL 0.5 MG/DL Sodium Level 136 MEQ/L 132 MEQ/L 133 MEQ/L Potassium Level 4.1 MEQ/L 4.5 MEQ/L 3.9 MEQ/L Chloride Level 99 MEQ/L 98 MEQ/L 95 MEQ/L Carbon Dioxide Level 28.0 MEQ/L 26.7 MEQ/L 26.4 MEQ/L Anion Gap 9 MEQ/L 7 MEQ/L 12 MEQ/L Estimat Glomerular Filtration Rate 19 ML/MIN 16 ML/MIN 16 ML/MIN Total Creatine Kinase 14 U/L Microbiology Date/Time Source Procedure Growth Status 01/04/17 07:59 Blood Peripheral Aerobic Blood Culture Pending Received 01/04/17 07:59 Blood Peripheral Anaerobic Blood Culture Pending Received 01/02/17 16:00 Blood Peripheral Aerobic Blood Culture - Preliminary NO GROWTH IN 2 DAYS Resulted 01/02/17 16:00 Blood Peripheral Anaerobic Blood Culture - Preliminary NO GROWTH IN 2 DAYS Resulted 01/02/17 15:50 Blood Peripheral Aerobic Blood Culture - Preliminary NO GROWTH IN 2 DAYS Resulted 01/02/17 15:50 Blood Peripheral Anaerobic Blood Culture - Preliminary NO GROWTH IN 2 DAYS Resulted 01/04/17 08:30 Urine Catheterized Urine Urine Culture Pending Received 01/03/17 15:30 Catheter Tip Other Wound Culture Pending Received Imaging Last Impressions Catheter Placement X-Ray 01/03/17 0000 Signed Impressions: Service Date/Time: Tuesday, January 03, 2017 15:22 - CONCLUSION: Uncomplicated line placement as above. Wilner Potter Jr., MD Chest X-Ray 01/01/17 1051 Signed Impressions: Service Date/Time: Sunday, January 01, 2017 11:16 - CONCLUSION: 1. Mild positive fluid balance. 2. Mild left lung base airspace disease, likely atelectasis although pneumonia or aspiration cannot be entirely excluded in the appropriate clinical setting. Jose Alberto Parker MD Head CT 01/01/17 0000 Signed Impressions: Service Date/Time: Sunday, January 01, 2017 17:56 - CONCLUSION: No acute findings. Wilner Bashir MD Physical Exam CONSTITUTIONAL/GENERAL: This is an adequately nourished patient, in no apparent distress, TUBES/LINES/DRAINS: Vascath in place SKIN: No jaundice, rashes, or lesions. Skin temperature appropriate. Not diaphoretic. EYES: Pupils equal and round and reactive. Extraocular motions intact. No scleral icterus. No injection or drainage. Fundi not examined. CARDIOVASCULAR: Regular rate and rhythm without murmurs, gallops, or rubs. No JVD. Peripheral pulses symmetric. RESPIRATORY/CHEST: Symmetric, unlabored respirations. Clear to auscultation. Breath sounds equal bilaterally. GASTROINTESTINAL: Abdomen soft, non-tender,mildly distended. MUSCULOSKELETAL: Extremities without clubbing, cyanosis, or edema. Some tree bark szymanski present on b/l feet No joint tenderness or effusion noted. No calf tenderness. No mottling or clubbing. : black cath in place NEUROLOGICAL: fully awake and alert, follows commands, converses approprietely, sppech normal PSYCHIATRIC: calm pleasant Assessment & Plan Remarks Sepsis UTI, ESBL + Kleb. PSAE MRSA sepsis -liekly from Permacath - sp removal of Permacath - 2 D echo negative Allergic reaction to vanco Doubt PNA dc zosyn startrt renally adjusted meropenm cont daptomycin dc azithro New Permcath can be put in after blood sterility documented keep repeating blood clx until documneted sterility if more positive clx after Permacath removal will get [place] Kristine Rick MD Jan 04, 2017 11:35
[2017-01-04] MEDS: MEROPENEM INJ 500 MG in SODIUM CHLORIDE 0.9% INJ 100 ML IV SCH ×2 (13:00→18:29)
--- NOTE | 2017-01-04 13:38 | HHI.NPPN ---
Subjective General Problems: Anemia, Edema Renal Failure: End Stage Renal Disease History of Present Illness 51-year-old female known to me from before with past medical history of hypertension, diabetes mellitus, end-stage renal disease on hemodialysis started recently, history of cerebrovascular accident, chronic anemia, sleep apnea, [facility] of fever and foul smelling of the urine. I was called to see the patient for the management of dialysis. She has been on hemodialysis Sunday, and Sunday. Additional Remarks Patient is alert, with nasal cannula, not in distress,remain afebrile. Review of Systems General Constitutional: Fatigue Respiratory Lungs: SOB Cardiovascular Cardiac: Edema, BALL Objective Data Data Vital Signs Date Time Temp Pulse Resp B/P (MAP) Pulse Ox O2 Delivery O2 Flow Rate FiO2 01/04/17 12:00 98.4 83 20 135/73 (93) 99 01/04/17 08:00 98.2 88 20 158/70 (99) 100 01/04/17 08:00 98.2 88 20 158/70 (99) 100 01/04/17 07:48 100 Nasal Cannula 2.00 01/04/17 04:48 82 01/04/17 04:28 98 Nasal Cannula 2.00 01/04/17 04:00 97.6 85 18 157/77 (103) 98 01/04/17 00:56 93 Nasal Cannula 2.00 01/04/17 00:00 97.8 86 18 149/71 (97) 100 01/03/17 21:55 92 Nasal Cannula 2.00 01/03/17 20:00 97.9 82 18 156/72 (100) 100 -: 01/04/17 0615 01/04/17 0615 Microbiology 01/04/17 Aerobic Blood Culture, Received Pending 01/04/17 Anaerobic Blood Culture, Received Pending 01/04/17 Urine Culture, Received Pending 01/03/17 Wound Culture - Preliminary, Resulted Physical Exam General Appearance: No Acute Distress, Comfortable Eyes Eye Exam: Pupils Equal Throat Throat Exam: Oral Mucosa [place] & Moist Pulmonary Resp Exam: No Distress, Crackles, Rhonchi, Decreased Bases, Diminished Breath Sounds Cardiology CV Exam: Regular, Normal Sinus Rhythm Gastrointestinal/Abdomen GI Exam: Soft, Non-Tender, Bowel Sounds Present Extremeties Extremities Exam: Moderate Edema Neurologic Neuro Exam: Alert, Awake, Oriented Psychiatric Psych Exam: Appropriate Responses Assessment/Plan Assessment Summary: Anemia of CKD, Fluid/Volume Overload, End Stage Renal Disease Problem List: (1) Hypertension ICD Codes: I10 - Essential (primary) hypertension Status: Chronic (2) COPD (chronic obstructive pulmonary disease) ICD Codes: J44.9 - Chronic obstructive pulmonary disease, unspecified Status: Chronic (3) Diabetes mellitus type 2, uncontrolled ICD Codes: E11.65 - Uncontrolled type 2 diabetes mellitus Status: Chronic (4) UTI (urinary tract infection) ICD Codes: N39.0 - Urinary tract infection Status: Acute (5) CVA (cerebral infarction) ICD Codes: I63.9 - CVA (cerebral infarction) Status: Acute Plan Patient has been afebrile now. On Azithromycin and Zosyn. BP is stable. On Epogen with HD for anemia. Blood culture showing MRSA, and the urine culture is positive for Klebsiella and pseudomonas. On Meropenem and Daptomycin. ID is following. HD done last night. Has Vascath done after PermCath removal. Continue HD TTS and as needed. Zi Kemp MD Jan 04, 2017 13:38
[2017-01-04] MEDS: DAPTOmycin INJ 600 MG in SODIUM CHLORIDE 0.9% INJ 100 ML IV SCH (17:00)
[2017-01-04] MEDS: MONTELUKAST SODIUM 10 MG TAB PO SCH (21:57)
[2017-01-05] VITALS (9 sets, daily range): BP systolic 118–158; BP diastolic 63–77; PULSE 66–79; RESP 16–18; TEMP 97–97.9; O2SAT 93–100
[2017-01-05] MEDS: RESP: ALBUTEROL 2.5 MG/IPRATROPIUM 0.5 MG NEB (SCH) NEB ×2 (00:15→04:55)
[2017-01-05] MEDS: cloNIDine HCL 0.1 MG TAB PO SCH ×3 (06:15→20:56)
[2017-01-05] MEDS: hydrALAZINE HCL 100 MG TAB PO SCH ×3 (07:51→17:07)
[2017-01-05] MEDS: PRAVASTATIN SOD 40 MG TAB PO SCH (07:51)
[2017-01-05] MEDS: PANTOPRAZOLE SOD 40 MG DELAYED RELEASE TAB PO SCH (07:51)
[2017-01-05] MEDS: DOCUSATE SODIUM 50 MG/SENNA 8.6 MG TAB PO SCH ×2 (07:51→20:56)
[2017-01-05] MEDS: CHOLECALCIFEROL (VIT D3) 5000 UNIT CAP PO SCH (07:51)
[2017-01-05] MEDS: amLODIPine BESYLATE 5 MG TAB PO SCH (07:51)
[2017-01-05] MEDS: LACTOBACILLUS ACIDOPHILUS TAB PO SCH ×3 (07:51→17:07)
[2017-01-05] MEDS: METOPROLOL TARTRATE 25 MG TAB PO SCH (07:52)
[2017-01-05] MEDS: HEPARIN SODIUM - SQ 10,000 UNITS/ML VIAL SQ SCH ×2 (07:52→17:07)
[2017-01-05] MEDS: FLUOROMETHOLONE 0.1% OPHT SUSP 5 ML BTL EACH EYE SCH ×2 (07:53→20:56)
[2017-01-05] MEDS: DORZOLAMIDE 2% OPTH SOLN 200 DROP/10 ML BTLO EACH EYE SCH ×2 (07:53→20:56)
[2017-01-05] MEDS: SODIUM CHLORIDE 0.9% FLUSH 10 ML FLUSH IV FLUSH SCH ×2 (07:53→20:56)
[2017-01-05] MEDS: INSULIN ASPART SUPPLEMENTAL SCALE SQ SCH ×4 (08:00→20:57)
[2017-01-05 09:06] LABS: AUTOMATED NEUTROPHIL # 5.7 TH/MM3 (1.8-7.7); BASOPHIL # 0.1 TH/MM3 (0-0.2); BASOPHIL % 0.8 % (0.0-2.0); EOSINOPHIL # 0.4 TH/MM3 (0-0.4); EOSINOPHIL % 5.1 % (0.0-4.0); HEMATOCRIT 27.9 % (35.0-46.0); LYMPH % 16.9 % (9.0-44.0); LYMPHOCYTE # 1.4 TH/MM3 (1.0-4.8); MEAN CELL VOLUME 97.8 FL (80.0-100.0); MEAN CORPUSCULAR HEMOGLOBIN 32.4 PG (27.0-34.0); MEAN CORPUSCULAR HGB CONC 33.1 % (32.0-36.0); MONO % 6.1 % (0.0-8.0); NEUT % 71.1 % (16.0-70.0); PLATELET COUNT 323 TH/MM3 (150-450); RED BLOOD COUNT 2.86 MIL/MM3 (4.00-5.30); RED CELL DISTRIBUTION WIDTH 16.5 % (11.6-17.2)
--- NOTE | 2017-01-05 09:14 | HHI.FPPN ---
Subjective Remarks Patient seen and examined at bedside. No acute events overnight. Denies CP, SOB , abdominal pain, fever or chills. Patient states she has good appetite. No complaints. (April Bullard MD, R1) Objective Vitals Vital Signs Date Time Temp Pulse Resp B/P (MAP) Pulse Ox O2 Delivery O2 Flow Rate FiO2 01/05/17 09:08 100 Nasal Cannula 2.00 01/05/17 08:00 97.6 79 18 158/77 (104) 100 01/05/17 04:00 97.4 79 16 144/68 (93) 95 01/05/17 00:00 97.3 79 18 127/63 (84) 100 01/04/17 20:00 97.5 81 18 127/60 (82) 99 01/04/17 19:50 67 01/04/17 16:00 98.2 69 20 120/65 (83) 100 01/04/17 15:39 99 Nasal Cannula 2.00 01/04/17 12:00 98.4 83 20 135/73 (93) 99 I/O 01/04/17 01/04/17 01/04/17 01/05/17 01/05/17 01/05/17 07:00 15:00 23:00 07:00 15:00 23:00 Intake Total 800 ml 240 ml 500 ml Balance 800 ml 240 ml 500 ml Intake Oral 800 ml 240 ml 500 ml # Voids 2 0 # Bowel Movements 1 0 2 (April Bullard MD, R1) Result Diagram: 01/04/17 0615 01/04/17 0615 Objective Remarks GENERAL: This is a well-nourished, well-developed patient, obese female, siting in bed. AAOx3 SKIN: No rashes, ecchymoses or lesions. Cool and dry. No sacral ulcers or pressure wounds noted on inspection. HEAD: Atraumatic. Normocephalic. No temporal or scalp tenderness. EYES: Pupils equal round and dilated. Non-reactive to light BL. 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 Extraocular motions intact. No scleral icterus. No injection or drainage. ENT: Nose without bleeding, purulent drainage or septal hematoma. Throat without erythema, tonsillar hypertrophy or exudate. Uvula midline. Airway patent. NECK: Trachea midline. No JVD or lymphadenopathy. Supple, nontender, no meningeal signs. CARDIOVASCULAR: Normal s1 and s2. Regular rate and rhythm without murmurs, gallops, or rubs. RESPIRATORY: Crackles BL at bases. No wheezes, rales, or rhonchi. GASTROINTESTINAL: Abdomen soft, positive BS, non-tender, distended-obese abdomen. No hepato-splenomegaly, or palpable masses. No guarding. MUSCULOSKELETAL: Extremities without clubbing, cyanosis, or edema. No joint tenderness, effusion, or edema noted. No calf tenderness. Negative Homans sign bilaterally. Limited range of motion in all extremities more pronounce on LE on exam. 2/5 strength in LE BL. 3/5 strength in UE. NEUROLOGICAL: Awake and alert. Cranial nerves II through XII intact. Motor and sensory grossly within normal limits. Normal speech. Procedures -Permcath removed and replaced with Vascath- 01/03 (April Bullard MD, R1) Urinary Catheter: No (April Bullard MD, R1) A/P Assessment and Plan Patient is a 51-year-old female with medical history of diabetes, ESRD (on HD), COPD, A. fib, CVA brought to ED via EMS from [facility] due to AMS and suspected UTI. Patient admitted for management of severe sepsis due to UTI and bacteremia from suspected perm cath infection. AAOx3. Remained afebrile overnight. (April Bullard MD, R1) Discharge Planning Case reviewed and discussed with the resident team. Agree with plan of care as discussed with me and documented in the resident note. (Charlene Mata MD) Problem List: (1) Sepsis ICD Codes: A41.9 - Sepsis, unspecified organism Status: Acute Plan: Patient found to meet severe sepsis criteria on admission with possible source being urinary and/or lungs based on CXR on admission. Since admission and patient is more alert and oriented it is clear she does not have any respiratory complaints and PNA is unlikely. Blood cultures grew MRSA and suspected source was the permcath. With ID assistance antibiotics have been tailored to treat the MRSA bacteremia and the UTI from Klebsiella and Pseudomonas. Patient is currently on Daptomycin and Meropenem. (Zithromax was d/c on 01/03 and Zosyn was d/c on ) - PermCath was removed and culture tip growing >15 CFU staph SP coagulase neg - New VasCath was inserted on01/03 - Echo was negative. - Continue to follow repeat cultures (urine and blood cultures). Consider [place] if repeat cultures are positive. -WBC- 8.8 today, blood cx taken on 01/02 neg for growth x2 (2) End stage kidney disease ICD Codes: N18.6 - End stage renal disease Status: Chronic Plan: - nephrology following for HD management - HD normal schedule: Sunday - Patient received HD 01/02, 01/03 and 01/04 to get back on her T,T,S schedule. -monitor electrolytes, I/O -renally dose meds -no nephrotoxic agents (3) COPD (chronic obstructive pulmonary disease) ICD Codes: J44.9 - Chronic obstructive pulmonary disease, unspecified Status: Chronic Plan: -c/w duoneb (4) Hypertension ICD Codes: I10 - Essential (primary) hypertension Status: Chronic Plan: -c/w home meds (5) Diabetes ICD Codes: E11.9 - Type 2 diabetes mellitus without complications Plan: -monitor BG chks -ssi low dose novolog scale -hold home meds (6) Nutrition, metabolism, and development symptoms ICD Codes: R63.8 - Other symptoms and signs concerning food and fluid intake Plan: Fluids: not indicated at this time Electrolytes: WNL, replete as needed Nutrition: renal diet DVT ppx: heparin 5,000 units Q8h SQ (April Bullard MD, R1) Problem Qualifiers (1) Sepsis: Qualified Codes: A41.9 - Sepsis, unspecified organism (2) Diabetes: April Bullard MD, R1 Jan 05, 2017 09:14 Charlene Mata MD Jan 06, 2017 07:45
[2017-01-05 09:16] LABS: HEMO FLAGS AUTO DIFF
[2017-01-05 09:32] LABS: ANION GAP 9 MEQ/L (5-15); AST (GOT) 22 U/L (15-37); BICARBONATE 26.9 MEQ/L (21.0-32.0); BLOOD UREA NITROGEN 33 MG/DL (7-18); CHLORIDE 96 MEQ/L (98-107); GLOMERULAR FILTRATION RATE 12 ML/MIN (>89); MAGNESIUM 2.1 MG/DL (1.5-2.5); POTASSIUM 4.1 MEQ/L (3.5-5.1); SODIUM (NA) 132 MEQ/L (136-145)
[2017-01-05 09:38] LABS: ALKALINE PHOSPHATASE 401 U/L (45-117); ALT (GPT) 22 U/L (10-53); TOTAL BILIRUBIN ADULT 0.4 MG/DL (0.2-1.0)
--- NOTE | 2017-01-05 09:55 | RADRPT ---
EXAM DATE/TIME: 01/03/2017 00:00 [place] COMPARISON: No previous studies available for comparison. INDICATIONS : Patient with ESRD. Perm cath infected. MEDICAL HISTORY : 1. HTN 2. DM 3. ESRD 4. CVA 5. Chronic anemia 6. fever SURGICAL HISTORY : 1. Perm cath ENCOUNTER: Initial ACUITY: 4-6 days PAIN SCORE: 0/10 IMAGE SERIES: PROCEDURE : 1. PermaCath removal. The risks, benefits and alternatives to the procedure were explained and verbal and written consent w as obtained. The site was prepped in sterile fashion. Full sterile technique was used, including ca p, mask, sterile gloves and gown and a large sterile sheet. Hand hygiene and 2% chlorhexidine and/or betadine/alcohol prep was utilized per protocol for cutaneous antisepsis. The skin and subcutaneous tissues were infiltrated with local anesthetic solution. The tract was anesthetized with 1% Lidocaine using. The Permcath was dissected from the subcutaneous tissues and easily removed in one piece. Manual pressure was applied to the venotomy site until hem ostasis was obtained. Sterile dressing was applied. The patient tolerated the procedure well and there were no complications. CONCLUSION: Uncomplicated Permcath removal. Wilner Potter Jr., MD on January 05, 2017 at 9:52 Board Certified Radiologist. This report was verified electronically.
[2017-01-05 10:07] LABS: SCAN/DIFF AUTO DIFF CONFIRMED
--- NOTE | 2017-01-05 12:29 | HHI.NPPN ---
Subjective General Problems: Anemia, Edema Renal Failure: End Stage Renal Disease History of Present Illness 51-year-old female known to me from before with past medical history of hypertension, diabetes mellitus, end-stage renal disease on hemodialysis started recently, history of cerebrovascular accident, chronic anemia, sleep apnea, [facility] because of fever and foul smelling of the urine. I was called to see the patient for the management of dialysis. She has been on hemodialysis Sunday, and Sunday. Additional Remarks Patient is alert, with nasal cannula, not in distress,remain afebrile, sitting on chair. Review of Systems General Constitutional: Fatigue Respiratory Lungs: SOB Cardiovascular Cardiac: Edema, BALL Objective Data Data Vital Signs Date Time Temp Pulse Resp B/P (MAP) Pulse Ox O2 Delivery O2 Flow Rate FiO2 01/05/17 12:00 97.0 72 18 147/71 (96) 100 01/05/17 09:08 100 Nasal Cannula 2.00 01/05/17 08:00 97.6 79 18 158/77 (104) 100 01/05/17 04:00 97.4 79 16 144/68 (93) 95 01/05/17 00:00 97.3 79 18 127/63 (84) 100 01/04/17 20:00 97.5 81 18 127/60 (82) 99 01/04/17 19:50 67 01/04/17 16:00 98.2 69 20 120/65 (83) 100 01/04/17 15:39 99 Nasal Cannula 2.00 -: 01/05/17 0810 01/05/17 0810 Microbiology 01/04/17 Aerobic Blood Culture - Preliminary, Resulted NO GROWTH IN 1 DAY 01/04/17 Anaerobic Blood Culture - Preliminary, Resulted NO GROWTH IN 1 DAY 01/04/17 Aerobic Blood Culture - Preliminary, Resulted NO GROWTH IN 1 DAY 01/04/17 Anaerobic Blood Culture - Preliminary, Resulted NO GROWTH IN 1 DAY Physical Exam General Appearance: No Acute Distress, Comfortable Eyes Eye Exam: Pupils Equal Throat Throat Exam: Oral Mucosa [place] & Moist Pulmonary Resp Exam: No Distress, Crackles, Rhonchi, Decreased Bases, Diminished Breath Sounds Cardiology CV Exam: Regular, Normal Sinus Rhythm Gastrointestinal/Abdomen GI Exam: Soft, Non-Tender, Bowel Sounds Present Extremeties Extremities Exam: Moderate Edema Neurologic Neuro Exam: Alert, Awake, Oriented Psychiatric Psych Exam: Appropriate Responses Assessment/Plan Assessment Summary: Anemia of CKD, Fluid/Volume Overload, End Stage Renal Disease Problem List: (1) Hypertension ICD Codes: I10 - Essential (primary) hypertension Status: Chronic (2) COPD (chronic obstructive pulmonary disease) ICD Codes: J44.9 - Chronic obstructive pulmonary disease, unspecified Status: Chronic (3) Diabetes mellitus type 2, uncontrolled ICD Codes: E11.65 - Uncontrolled type 2 diabetes mellitus Status: Chronic (4) UTI (urinary tract infection) ICD Codes: N39.0 - Urinary tract infection Status: Acute (5) CVA (cerebral infarction) ICD Codes: I63.9 - CVA (cerebral infarction) Status: Acute Plan Patient has been afebrile now. On Azithromycin and Zosyn. BP is stable. On Epogen with HD for anemia. Blood culture showing MRSA, and the urine culture is positive for Klebsiella and pseudomonas. On Meropenem and Daptomycin. ID is following. HD done last night. Has Vascath done after PermCath removal. Continue HD TTS and as needed. Repeat BC negative. Continue PT. Zi Kemp MD Jan 05, 2017 12:29
[2017-01-05] MEDS: MONTELUKAST SODIUM 10 MG TAB PO SCH (20:56)
[2017-01-06] VITALS (7 sets, daily range): BP systolic 136–159; BP diastolic 60–77; PULSE 72–86; RESP 16–22; TEMP 97.5–98.2; O2SAT 92–100
[2017-01-06] MEDS: HEPARIN SODIUM - SQ 10,000 UNITS/ML VIAL SQ SCH ×3 (00:56→17:06)
[2017-01-06] MEDS: cloNIDine HCL 0.1 MG TAB PO SCH ×3 (06:19→21:48)
[2017-01-06] MEDS: INSULIN ASPART SUPPLEMENTAL SCALE SQ SCH ×4 (08:00→21:00)
[2017-01-06] MEDS: LACTOBACILLUS ACIDOPHILUS TAB PO SCH ×3 (08:00→17:05)
[2017-01-06 08:33] LABS: POTASSIUM 3.9 MEQ/L (3.5-5.1)
[2017-01-06] MEDS: DOCUSATE SODIUM 50 MG/SENNA 8.6 MG TAB PO SCH ×2 (09:00→21:00)
[2017-01-06] MEDS: amLODIPine BESYLATE 5 MG TAB PO SCH (09:00)
[2017-01-06] MEDS: CHOLECALCIFEROL (VIT D3) 5000 UNIT CAP PO SCH (09:00)
[2017-01-06] MEDS: SODIUM CHLORIDE 0.9% FLUSH 10 ML FLUSH IV FLUSH SCH ×2 (09:00→21:00)
[2017-01-06] MEDS: hydrALAZINE HCL 100 MG TAB PO SCH ×3 (09:00→18:00)
[2017-01-06] MEDS: PRAVASTATIN SOD 40 MG TAB PO SCH (09:00)
[2017-01-06] MEDS: METOPROLOL TARTRATE 25 MG TAB PO SCH (09:00)
--- NOTE | 2017-01-06 11:05 | HHI.DCPOC ---
Discharge Care Plan Diagnosis: (1) End stage kidney disease (2) UTI (urinary tract infection) (3) Sepsis (4) Central line infection Goals to Promote Your Health * To prevent worsening of your condition and complications * To maintain your health at the optimal level Directions to Meet Your Goals Take your medications as prescribed Follow your dietary instruction Follow activity as directed Keep your appointments as scheduled Take your immunizations and boosters as scheduled If your symptoms worsen call your PCP, if no PCP go to Urgent Care Center or Emergency Room Smoking is Dangerous to Your Health. Avoid second hand smoke Call the 24-hour hour crisis hotline for domestic abuse at Rajinder Farmer MD R3 Jan 06, 2017 11:05
--- NOTE | 2017-01-06 11:24 | HHI.FPPN ---
Subjective Remarks Patient just returned to floor after receiving hemodialysis this morning. She has no complaints today. She reports no chest pain or shortness of breath. She has no abdominal pain. She has no calf swelling or tenderness. She had nausea during dialysis that resolved with medication. (Rajinder Farmer MD R3) Objective Vitals Vital Signs Date Time Temp Pulse Resp B/P (MAP) Pulse Ox O2 Delivery O2 Flow Rate FiO2 01/06/17 08:00 98.2 81 20 150/72 (98) 96 01/06/17 04:00 97.6 80 16 159/74 (102) 92 01/06/17 04:00 92 Room Air 01/06/17 00:00 97.5 72 20 145/77 (99) 99 01/05/17 20:00 97.9 69 18 147/75 (99) 100 01/05/17 20:00 100 Room Air 01/05/17 19:07 96 01/05/17 16:45 96 01/05/17 16:00 97.6 66 18 118/65 (82) 93 01/05/17 12:00 97.0 72 18 147/71 (96) 100 I/O 01/05/17 01/05/17 01/05/17 01/06/17 01/06/17 01/06/17 07:00 15:00 23:00 07:00 15:00 23:00 Intake Total 500 ml 960 ml 360 ml Balance 500 ml 960 ml 360 ml Intake Oral 500 ml 960 ml 360 ml # Voids 0 0 2 # Bowel Movements 2 0 2 (Rajinder Farmer MD R3) Result Diagram: 01/05/17 0810 01/06/17 0723 Objective Remarks General: Sitting up in bed, no distress, obese Skin: No rashes or lesions, vascath site appears clean, dry HEENT: Normocephalic, no conjunctivitis, right eye blindness Neck: Supple, no JVD CV: RRR, no murmurs, rubs, or gallops, normal pulses Lungs: CTAB, no wheezing. Abdomen: Soft, nontender, nondistended, normal bowel sounds MSK: No swelling or pain of the calf muscles Neuro: Awake, alert Procedures -Permcath removed and replaced with Vascath- 01/03 (Rajinder Farmer MD R3) A/P Assessment and Plan 51-year-old female with medical history of diabetes, ESRD (on HD), COPD, A. fib , [facility] and [facility]. Patient admitted for management of severe sepsis due to UTI and bacteremia from suspected perm cath infection. Discharge Planning Plan for discharge to [facility] facility once perm cath is replaced. Will coordinate with infectious disease regarding antibiotic infusion orders. (Rajinder Farmer MD R3) Attending Attestation Patient seen and examined. Case reviewed and discussed with the resident team. Agree with plan of care as discussed with me and documented in the resident note. (Charlene Mata MD) Problem List: (1) Central line infection ICD Codes: T80.219A - Unspecified infection due to central venous catheter, initial encounter Status: Acute Plan: Patient found to meet severe sepsis criteria on admission with sources including perm cath infection and urinary tract infections. She has MRSA bacteremia likely from the perm cath that has since been removed and replaced with a vas cath. With ID assistance antibiotics have been tailored to treat the MRSA bacteremia and the UTI from Klebsiella and Pseudomonas. Patient is currently on Daptomycin and Meropenem. (Zithromax was d/c on 01/03 and Zosyn was d/c on ) - PermCath was removed and culture tip growing >15 CFU staph SP coagulase neg - New VasCath was inserted on01/03 - TTE was negative for endocarditis. - Continue to follow repeat cultures (urine and blood cultures), negative to date. Consider [place] if repeat cultures are positive. - Consult interventional radiology for perm cath replacement. (2) End stage kidney disease ICD Codes: N18.6 - End stage renal disease Status: Chronic Plan: - nephrology following for HD management - HD normal schedule: Sunday -monitor electrolytes, I/O -renally dose meds -no nephrotoxic agents (3) COPD (chronic obstructive pulmonary disease) ICD Codes: J44.9 - Chronic obstructive pulmonary disease, unspecified Status: Chronic Plan: -c/w duoneb (4) Hypertension ICD Codes: I10 - Essential (primary) hypertension Status: Chronic Plan: -c/w home meds (5) Diabetes ICD Codes: E11.9 - Type 2 diabetes mellitus without complications Plan: -monitor BG chks -ssi low dose novolog scale -hold home meds (6) Nutrition, metabolism, and development symptoms ICD Codes: R63.8 - Other symptoms and signs concerning food and fluid intake Plan: Fluids: not indicated at this time Electrolytes: WNL, replete as needed Nutrition: renal diet DVT ppx: heparin 5,000 units Q8h SQ (Rajinder Farmer MD R3) Problem Qualifiers (1) Central line infection: Qualified Codes: T80.219A - Unspecified infection due to central venous catheter, initial encounter (2) Diabetes: Rajinder Farmer MD R3 Jan 06, 2017 11:23 Charlene Mata MD Jan 08, 2017 08:21
--- NOTE | 2017-01-06 11:52 | HHI.NPPN ---
Subjective General Problems: Anemia, Edema Renal Failure: End Stage Renal Disease History of Present Illness 51-year-old female known to me from before with past medical history of hypertension, diabetes mellitus, end-stage renal disease on hemodialysis started recently, history of cerebrovascular accident, chronic anemia, sleep apnea, [facility] of fever and foul smelling of the urine. I was called to see the patient for the management of dialysis. She has been on hemodialysis Sunday, and Sunday. Additional Remarks Patient is alert, has issues with Vascath Review of Systems General Constitutional: Fatigue Respiratory Lungs: SOB Cardiovascular Cardiac: Edema, BALL Objective Data Data Vital Signs Date Time Temp Pulse Resp B/P (MAP) Pulse Ox O2 Delivery O2 Flow Rate FiO2 01/06/17 08:00 98.2 81 20 150/72 (98) 96 01/06/17 04:00 97.6 80 16 159/74 (102) 92 01/06/17 04:00 92 Room Air 01/06/17 00:00 97.5 72 20 145/77 (99) 99 01/05/17 20:00 97.9 69 18 147/75 (99) 100 01/05/17 20:00 100 Room Air 01/05/17 19:07 96 01/05/17 16:45 96 01/05/17 16:00 97.6 66 18 118/65 (82) 93 01/05/17 12:00 97.0 72 18 147/71 (96) 100 -: 01/05/17 0810 01/06/17 0723 Physical Exam General Appearance: No Acute Distress, Comfortable Eyes Eye Exam: Pupils Equal Throat Throat Exam: Oral Mucosa [place] & Moist Pulmonary Resp Exam: No Distress, Crackles, Rhonchi, Decreased Bases, Diminished Breath Sounds Cardiology CV Exam: Regular, Normal Sinus Rhythm Gastrointestinal/Abdomen GI Exam: Soft, Non-Tender, Bowel Sounds Present Extremeties Extremities Exam: Moderate Edema Neurologic Neuro Exam: Alert, Awake, Oriented Psychiatric Psych Exam: Appropriate Responses Assessment/Plan Assessment Summary: Anemia of CKD, Fluid/Volume Overload, End Stage Renal Disease Problem List: (1) Hypertension ICD Codes: I10 - Essential (primary) hypertension Status: Chronic (2) COPD (chronic obstructive pulmonary disease) ICD Codes: J44.9 - Chronic obstructive pulmonary disease, unspecified Status: Chronic (3) Diabetes mellitus type 2, uncontrolled ICD Codes: E11.65 - Uncontrolled type 2 diabetes mellitus Status: Chronic (4) UTI (urinary tract infection) ICD Codes: N39.0 - Urinary tract infection Status: Acute (5) CVA (cerebral infarction) ICD Codes: I63.9 - CVA (cerebral infarction) Status: Acute Plan Patient has been afebrile now. BP is stable. On Epogen with HD for anemia. Blood culture showing MRSA, and the urine culture is positive for Klebsiella and pseudomonas. On Meropenem and Daptomycin. ID is following. HD progress noted Has Vascath poorly functioning seen at hemodialysis [facility] 2 L if tolerates Vascath positional clots off dialyzer due to poor flow need a new line by next week Dr. Marion to follow Rafael Briggs MD Jan 06, 2017 11:52
[2017-01-06] MEDS ORDERED: FLUCONAZOLE 100 MG TAB PO ONE (12:00)
[2017-01-06] MEDS: HEPARIN SODIUM - IV 10,000 UNITS/10 ML VIAL PRN (12:19)
[2017-01-06] MEDS: EPOETIN ALFA 10,000 UNITS/ML VIAL IV PUSH PRN (12:19)
[2017-01-06] MEDS: GENTAMICIN SULFATE (DIALYSIS USE ONLY) 20 MG/2 ML VIAL OTHER PRN (12:19)
[2017-01-06] MEDS: ALBUMIN 25% INJ 100 ML IV PRN (12:20)
[2017-01-06] MEDS: MEROPENEM INJ 500 MG in SODIUM CHLORIDE 0.9% INJ 100 ML IV SCH (13:00)
--- NOTE | 2017-01-06 14:20 | HHI.IDPN ---
Subjective Subjective Remarks sp HD Vascath not working well, but got 1 L off no fever repeat BC neg @ 2 days Antibiotics dapto meropenem Allergies: Coded Allergies: fentanyl (Verified Allergy, Unknown, 10/25/16) morphine (Unverified Allergy, Unknown, 09/26/16) vancomycin (Verified Adverse Reaction, Severe, Rash, 10/17/16) Objective . Vital Signs Date Time Temp Pulse Resp B/P (MAP) Pulse Ox O2 Delivery O2 Flow Rate FiO2 01/06/17 08:00 98.2 81 20 150/72 (98) 96 01/06/17 04:00 97.6 80 16 159/74 (102) 92 01/06/17 04:00 92 Room Air 01/06/17 00:00 97.5 72 20 145/77 (99) 99 01/05/17 20:00 97.9 69 18 147/75 (99) 100 01/05/17 20:00 100 Room Air 01/05/17 19:07 96 01/05/17 16:45 96 01/05/17 16:00 97.6 66 18 118/65 (82) 93 01/06/17 01/06/17 01/07/17 15:00 23:00 07:00 Output Total 2000 ml Balance -2000 ml Hemodialysis 2000 ml . Laboratory Tests Test 01/05/17 08:10 White Blood Count 8.0 TH/MM3 Red Blood Count 2.86 MIL/MM3 Hemoglobin 9.3 GM/DL Hematocrit 27.9 % Mean Corpuscular Volume 97.8 FL Mean Corpuscular Hemoglobin 32.4 PG Mean Corpuscular Hemoglobin Concent 33.1 % Red Cell Distribution Width 16.5 % Platelet Count 323 TH/MM3 Mean Platelet Volume 8.0 FL Neutrophils (%) (Auto) 71.1 % Lymphocytes (%) (Auto) 16.9 % Monocytes (%) (Auto) 6.1 % Eosinophils (%) (Auto) 5.1 % Basophils (%) (Auto) 0.8 % Neutrophils # (Auto) 5.7 TH/MM3 Lymphocytes # (Auto) 1.4 TH/MM3 Monocytes # (Auto) 0.5 TH/MM3 Eosinophils # (Auto) 0.4 TH/MM3 Basophils # (Auto) 0.1 TH/MM3 CBC Comment AUTO DIFF Differential Comment AUTO DIFF CONFIRMED Laboratory Tests Test 01/05/17 08:10 01/06/17 07:23 Blood Urea Nitrogen 33 MG/DL 42 MG/DL Creatinine 4.06 MG/DL 4.80 MG/DL Random Glucose 165 MG/DL 172 MG/DL Total Protein 8.4 GM/DL Albumin 2.3 GM/DL Calcium Level 8.8 MG/DL 9.1 MG/DL Phosphorus Level 4.9 MG/DL Magnesium Level 2.1 MG/DL Alkaline Phosphatase 401 U/L Aspartate Amino Transf (AST/SGOT) 22 U/L Alanine Aminotransferase (ALT/SGPT) 22 U/L Total Bilirubin 0.4 MG/DL Sodium Level 132 MEQ/L 133 MEQ/L Potassium Level 4.1 MEQ/L 3.9 MEQ/L Chloride Level 96 MEQ/L 97 MEQ/L Carbon Dioxide Level 26.9 MEQ/L 24.0 MEQ/L Anion Gap 9 MEQ/L 12 MEQ/L Estimat Glomerular Filtration Rate 12 ML/MIN 10 ML/MIN Microbiology Date/Time Source Procedure Growth Status 01/04/17 14:27 Blood Peripheral Aerobic Blood Culture - Preliminary NO GROWTH IN 2 DAYS Resulted 01/04/17 14:27 Blood Peripheral Anaerobic Blood Culture - Preliminary NO GROWTH IN 2 DAYS Resulted 01/04/17 14:27 Blood Peripheral Aerobic Blood Culture - Preliminary NO GROWTH IN 2 DAYS Resulted 01/04/17 14:27 Blood Peripheral Anaerobic Blood Culture - Preliminary NO GROWTH IN 2 DAYS Resulted 01/04/17 07:59 Blood Peripheral Aerobic Blood Culture - Preliminary NO GROWTH IN 2 DAYS Resulted 01/04/17 07:59 Blood Peripheral Anaerobic Blood Culture - Preliminary NO GROWTH IN 2 DAYS Resulted 01/04/17 08:30 Urine Catheterized Urine Urine Culture - Preliminary Yeast Species Resulted 01/03/17 15:30 Catheter Tip Other Wound Culture - Final Complete Imaging Last Impressions Central Venous Line 01/03/17 0000 Signed Impressions: Service Date/Time: Tuesday, January 03, 2017 00:00 - CONCLUSION: Uncomplicated Permcath removal. Wilner Potter Jr., MD Catheter Placement X-Ray 01/03/17 0000 Signed Impressions: Service Date/Time: Tuesday, January 03, 2017 15:22 - CONCLUSION: Uncomplicated line placement as above. Wilner Potter Jr., MD Chest X-Ray 01/01/17 1051 Signed Impressions: Service Date/Time: Sunday, January 01, 2017 11:16 - CONCLUSION: 1. Mild positive fluid balance. 2. Mild left lung base airspace disease, likely atelectasis although pneumonia or aspiration cannot be entirely excluded in the appropriate clinical setting. Jose Alberto Parker MD Head CT 01/01/17 0000 Signed Impressions: Service Date/Time: Sunday, January 01, 2017 17:56 - CONCLUSION: No acute findings. Wilner Bashir MD Physical Exam CONSTITUTIONAL/GENERAL: This is an adequately nourished patient, in no apparent distress, TUBES/LINES/DRAINS: Vascath in place R chest SKIN: No jaundice, rashes, or lesions. Skin temperature appropriate. Not diaphoretic. EYES: Pupils equal and round and reactive. Extraocular motions intact. No scleral icterus. No injection or drainage. Fundi not examined. CARDIOVASCULAR: Regular rate and rhythm without murmurs, gallops, or rubs. No JVD. Peripheral pulses symmetric. RESPIRATORY/CHEST: Symmetric, unlabored respirations. Clear to auscultation. Breath sounds equal bilaterally. GASTROINTESTINAL: Abdomen soft, non-tender,mildly distended. MUSCULOSKELETAL: Extremities without clubbing, cyanosis, or edema. Some tree bark szymanski present on b/l feet : bladder not palpable NEUROLOGICAL: fully awake and alert, follows commands, converses approprietely, sppech normal PSYCHIATRIC: calm pleasant Assessment & Plan Remarks Sepsis UTI, ESBL + Kleb. PSAE MRSA sepsis -liekly from Permacath - sp removal of Permacath - 2 D echo negative Allergic reaction to vanco Doubt PNA Funguria ? significance cont meropenem cont daptomycin - can be given with HD 3 x/week New Permcath can be put in after blood sterility documented: peyman Briggs - will get on Sunday if more positive clx after Permacath removal will get Kristine Crabtree MD Jan 06, 2017 14:20
[2017-01-06] MEDS: DORZOLAMIDE 2% OPTH SOLN 200 DROP/10 ML BTLO EACH EYE SCH ×2 (14:37→21:50)
[2017-01-06] MEDS: FLUOROMETHOLONE 0.1% OPHT SUSP 5 ML BTL EACH EYE SCH ×2 (14:38→21:50)
[2017-01-06] MEDS: DAPTOmycin INJ 600 MG in SODIUM CHLORIDE 0.9% INJ 100 ML IV SCH (17:05)
[2017-01-06] MEDS: MONTELUKAST SODIUM 10 MG TAB PO SCH (21:48)
[2017-01-07] VITALS (8 sets, daily range): BP systolic 119–188; BP diastolic 63–90; PULSE 62–92; RESP 20; TEMP 97.4–98.4; O2SAT 94–100
[2017-01-07] MEDS: HEPARIN SODIUM - SQ 10,000 UNITS/ML VIAL SQ SCH ×3 (00:41→16:00)
[2017-01-07] MEDS: cloNIDine HCL 0.1 MG TAB PO SCH ×3 (05:11→21:49)
[2017-01-07] MEDS: INSULIN ASPART SUPPLEMENTAL SCALE SQ SCH ×4 (08:00→21:00)
[2017-01-07] MEDS: SODIUM CHLORIDE 0.9% FLUSH 10 ML FLUSH IV FLUSH SCH ×2 (09:00→21:50)
[2017-01-07] MEDS: DORZOLAMIDE 2% OPTH SOLN 200 DROP/10 ML BTLO EACH EYE SCH ×2 (09:00→21:00)
[2017-01-07] MEDS: FLUOROMETHOLONE 0.1% OPHT SUSP 5 ML BTL EACH EYE SCH ×2 (09:00→21:00)
[2017-01-07] MEDS: LACTOBACILLUS ACIDOPHILUS TAB PO SCH ×3 (09:17→18:00)
[2017-01-07] MEDS: hydrALAZINE HCL 100 MG TAB PO SCH ×3 (09:17→18:00)
[2017-01-07] MEDS: amLODIPine BESYLATE 5 MG TAB PO SCH (09:17)
[2017-01-07] MEDS: DOCUSATE SODIUM 50 MG/SENNA 8.6 MG TAB PO SCH ×2 (09:17→21:00)
[2017-01-07] MEDS: CHOLECALCIFEROL (VIT D3) 5000 UNIT CAP PO SCH (09:17)
[2017-01-07] MEDS: METOPROLOL TARTRATE 25 MG TAB PO SCH (09:17)
[2017-01-07] MEDS: PRAVASTATIN SOD 40 MG TAB PO SCH (09:17)
--- NOTE | 2017-01-07 09:30 | HHI.FPPN ---
Subjective Remarks No acute events overnight. Feels well, denies CP/SOB. (Torres Correa MD R2) Objective Vitals Vital Signs Date Time Temp Pulse Resp B/P (MAP) Pulse Ox O2 Delivery O2 Flow Rate FiO2 01/07/17 08:00 97.9 71 20 188/86 (120) 100 01/07/17 04:00 97.4 89 20 168/90 (116) 95 01/07/17 00:00 97.6 75 20 136/63 (87) 100 01/06/17 20:00 Nasal Cannula 3.00 01/06/17 20:00 97.8 78 22 141/76 (97) 93 01/06/17 18:01 97.9 78 20 136/60 (85) 99 01/06/17 17:44 99 21 01/06/17 13:30 97.6 84 20 145/63 (90) 100 I/O 01/06/17 01/06/17 01/06/17 01/07/17 01/07/17 01/07/17 07:00 15:00 23:00 07:00 15:00 23:00 Intake Total 360 ml 240 ml 660 ml Output Total 2000 ml 0 ml Balance 360 ml -1760 ml 660 ml Intake Oral 360 ml 240 ml 660 ml Output Urine Total 0 ml Hemodialysis 2000 ml # Voids 2 # Bowel Movements 2 0 (Torres Correa MD R2) Result Diagram: 01/05/17 0810 01/06/17 0723 Objective Remarks General: Sitting up in bed, no distress, obese Skin: No rashes or lesions, VasCath site appears clean, dry CV: NRRR, no murmurs, rubs, or gallops, normal pulses Lungs: CTAB. No crackles or wheezes. Abdomen: Soft, nontender, nondistended MSK: No swelling or pain of the calf muscles Neuro: Awake, alert Procedures -Permcath removed and replaced with Vascath- 01/03 Medications and IVs Current Medications Medications (Trade) Dose Ordered Sig/Adair Route Start Time Stop Time Status Last Admin (NS Flush) 2 ml UNSCH PRN IV FLUSH 01/01/17 13:30 (NS Flush) 2 ml BID IV FLUSH 01/01/17 21:00 01/07/17 09:00 (Heparin Inj) 5,000 units Q8H SQ 01/01/17 16:00 01/07/17 09:17 (Narcan Inj) 0.4 mg UNSCH PRN IV PUSH 01/01/17 14:30 (Maira-Colace) 1 tab BID PO 01/01/17 21:00 01/07/17 09:17 (Milk Of Magnesia Liq) 30 ml Q12H PRN PO 01/01/17 14:30 (Senokot) 17.2 mg Q12H PRN PO 01/01/17 14:30 (Dulcolax Supp) 10 mg DAILY PRN RECTAL 01/01/17 14:30 (Lactulose Liq) 30 ml DAILY PRN PO 01/01/17 14:30 (Norvasc) 5 mg DAILY PO 01/02/17 09:00 01/07/17 09:17 (Vitamin D3) 5,000 units DAILY PO 01/02/17 09:00 01/07/17 09:17 (Catapres) 0.1 mg Q8HR PO 01/01/17 22:00 01/07/17 05:11 (Trusopt 2% Opth Soln) 1 drop BID EACH EYE 01/01/17 21:00 01/07/17 09:00 (Fml Liquifilm Opth Susp) 1 drop BID EACH EYE 01/01/17 21:00 01/06/17 21:50 (Apresoline) 100 mg TID PO 01/01/17 18:00 01/07/17 09:17 (Lactinex) 1 tab TIDAC PO 01/01/17 17:00 01/07/17 09:17 (Lopressor) 50 mg DAILY PO 01/02/17 09:00 01/07/17 09:17 (Singulair) 10 mg HS PO 01/01/17 21:00 01/06/17 21:48 (Pravachol) 40 mg DAILY PO 01/02/17 09:00 01/07/17 09:17 (D50w (Vial) Inj) 50 ml UNSCH PRN IV PUSH 01/01/17 15:00 01/02/17 11:58 (Glucagon Inj) 1 mg UNSCH PRN OTHER 01/01/17 15:00 (NovoLOG SUPPLEMENTAL SCALE) 1 ACHS SLIDING SCALE SQ 01/01/17 17:00 01/06/17 21:00 Sodium Chloride 1,000 ml @ 0 mls/hr Q0M PRN OTHER 01/01/17 15:50 (Heparin Inj) 8,000 units UNSCH PRN IV FLUSH 01/01/17 16:00 Sodium Chloride 1,000 ml @ 200 mls/hr Q5H PRN IV 01/01/17 15:50 Sodium Chloride 1,000 ml @ 0 mls/hr Q0M PRN OTHER 01/01/17 15:50 (Mannitol Inj) 12.5 gm UNSCH PRN IV 01/01/17 16:00 Albumin Human 100 ml @ 60 mls/hr UNSCH PRN IV 01/01/17 16:00 01/06/17 12:20 (NS Flush) 5 ml UNSCH PRN IV FLUSH 01/01/17 16:00 (Heparin Inj) UNSCH PRN .XX 01/01/17 16:00 01/06/17 12:19 (Gentamicin (Dialysis) Inj) 20 mg UNSCH PRN OTHER 01/01/17 16:00 01/06/17 12:19 (Zofran Inj) 4 mg UNSCH PRN IV PUSH 01/01/17 16:00 01/06/17 12:19 (Tylenol) 650 mg UNSCH PRN PO 01/01/17 16:00 (Benadryl) 25 mg UNSCH PRN PO 01/01/17 16:00 (Nitrostat Sl) 0.4 mg UNSCH PRN SL 01/01/17 16:00 (Catapres) 0.1 mg UNSCH PRN PO 01/01/17 16:00 (Epogen Inj) 6,000 units UNSCH PRN IV PUSH 01/01/17 16:00 01/06/17 12:19 (Gelfoam 12 Mm/7 Mm Top) 1 foam UNSCH PRN TOP 01/01/17 16:00 Daptomycin 600 mg/ Sodium Chloride 100 ml @ 200 mls/hr Q48H IV 01/02/17 17:00 01/06/17 17:05 (NS Flush) UNSCH PRN IV FLUSH 01/03/17 16:15 (Heparin Inj) UNSCH PRN IV FLUSH 01/03/17 16:15 Meropenem 500 mg/ Sodium Chloride 100 ml @ 200 mls/hr Q24H IV 01/04/17 13:00 01/06/17 13:00 (Torres Correa MD R2) A/P Assessment and Plan 51-year-old female with medical history of diabetes, ESRD (on HD), COPD, A. fib , CVA [facility] and suspected UTI. Patient admitted for management of severe sepsis due to UTI and bacteremia from suspected perm cath infection. Discharge Planning Plan for discharge to halfway facility once perm cath is replaced. Will coordinate with infectious disease regarding antibiotic infusion orders. (Torres Correa MD R2) Attending Attestation Patient seen and examined. Case reviewed and discussed with the resident team. Agree with plan of care as discussed with me and documented in the resident note. (Charlene Mata MD) Problem List: (1) Central line infection ICD Codes: T80.219A - Unspecified infection due to central venous catheter, initial encounter Status: Acute Plan: Patient found to meet severe sepsis criteria on admission with sources including perm cath infection and urinary tract infections MRSA bacteremia due to PermCath; replaced with VasCath 01/03 Bacteremia resolved with no growth documented for > 48 hours on BCx x2 after PermCath removal Culture history Item Value Date Time Aerobic Blood Culture - Final Complete 01/01/17 1052 Blood Peripheral S. Aureus Mrsa Aerobic Blood Culture - Final Complete 01/02/17 1550 Blood Peripheral NO GROWTH IN 5 DAYS Aerobic Blood Culture - Final Complete 01/02/17 1600 Blood Peripheral NO GROWTH IN 5 DAYS Aerobic Blood Culture - Preliminary Resulted 01/04/17 0759 Blood Peripheral NO GROWTH IN 3 DAYS Aerobic Blood Culture - Preliminary Resulted 01/04/17 1427 Blood Peripheral NO GROWTH IN 3 DAYS - ID consulted, appreciate recommendations - Continue daptomycin for MRSA - Continue meropenem for UTI due to ESBL pos. Klebsiella and Pseudomonas - TTE was negative for vegetations - Continue to follow repeat cultures (urine and blood cultures), negative to date. Consider [place] if repeat cultures are positive. - PermCath to be placed on 01/08 Antibiotic history Daptomycin 01/02 - present Meropenem 01/04 - present Zosyn 01/01 - 01/04 Azithromycin 01/01 - 01/02 (2 doses) (2) UTI (urinary tract infection) ICD Codes: N39.0 - Urinary tract infection Status: Acute Plan: UTI with Klebsiella ESBL+ and Pseudomonas Item Value Date Time Urine Culture - Final Complete 01/01/17 1102 Urine Catheterized Urine Pseudomonas Aeruginosa Initially with sepsis, now resolved - ID on board, appreciate recommendations - Meropenem as above (3) End stage kidney disease ICD Codes: N18.6 - End stage renal disease Status: Chronic Plan: Nephrology following for HD management - HD normal schedule: Sunday - monitor electrolytes, I/O - renally dose meds - avoid nephrotoxic agents where possible (4) COPD (chronic obstructive pulmonary disease) ICD Codes: J44.9 - Chronic obstructive pulmonary disease, unspecified Status: Chronic Plan: - Continue home DuoNebs (5) Hypertension ICD Codes: I10 - Essential (primary) hypertension Status: Chronic Plan: BP in good control at present - Continue home meds (6) Diabetes ICD Codes: E11.9 - Type 2 diabetes mellitus without complications Plan: BSG 140 - 230 last 24 hours - Low dose novolog SSI - BSG goal 140-180 - hold home meds - Check sugar AC&HS (7) Nutrition, metabolism, and development symptoms ICD Codes: R63.8 - Other symptoms and signs concerning food and fluid intake Plan: Fluids: not indicated at this time Electrolytes: WNL, replete as needed Nutrition: renal diet DVT ppx: heparin 5,000 units Q8h SQ Code status: Full code Dispo: To rehab / SNF 01/08 after replacement of PermCath (Torres Correa MD R2) Problem Qualifiers (1) Central line infection: Qualified Codes: T80.219A - Unspecified infection due to central venous catheter, initial encounter (2) Diabetes: Torres Correa MD R2 Jan 07, 2017 09:30 Charlene Mata MD Jan 08, 2017 08:24
--- NOTE | 2017-01-07 12:43 | HHI.PR ---
Addendum to Inpatient Note Addendum Reason: Additional Documentation Additional Information Hospital Course Summary Admitted 01/01 due to sepsis secondary to UTI and PermCath infection. Bacteremia noted on blood culture, MRSA positive. ID consulted due to bacteremia as well as urine Cx resulting positive for ESBL pos Klebsiella and Pseudomonas. Patient improved with antibiotic therapy noted below. Nephrology consulted for continued dialysis, electrolyte and fluid management while in house. PermCath removed and replaced with VasCath on 01/03. Repeat blood cultures after replacement of PermCath have been negative for > 48 hours. Patient medically stable and will be cleared for discharge to short-term rehab after placement of new PermCath by IR on 01/08. Antibiotic history Daptomycin 01/02 - present Meropenem 01/04 - present Zosyn 01/01 - 01/04 Azithromycin 01/01 - 01/02 (2 doses) Torrse Correa MD R2 Jan 07, 2017 12:43 pm
[2017-01-07] MEDS: MEROPENEM INJ 500 MG in SODIUM CHLORIDE 0.9% INJ 100 ML IV SCH (13:26)
--- NOTE | 2017-01-07 15:36 | HHI.NPPN ---
Subjective General Problems: Anemia, Edema Renal Failure: End Stage Renal Disease History of Present Illness 51-year-old female known to me from before with past medical history of hypertension, diabetes mellitus, end-stage renal disease on hemodialysis started recently, history of cerebrovascular accident, chronic anemia, sleep apnea, [facility] and foul smelling of the urine. I was called to see the patient for the management of dialysis. She has been on hemodialysis Sunday, and Sunday. Additional Remarks Patient is alert, has issues with Vascath Review of Systems General Constitutional: Fatigue Respiratory Lungs: SOB Cardiovascular Cardiac: Edema, BALL Objective Data Data Vital Signs Date Time Temp Pulse Resp B/P (MAP) Pulse Ox O2 Delivery O2 Flow Rate FiO2 01/07/17 12:00 97.6 72 20 155/81 (105) 100 01/07/17 09:58 100 Nasal Cannula 2.00 01/07/17 08:00 97.9 71 20 188/86 (120) 100 01/07/17 04:00 97.4 89 20 168/90 (116) 95 01/07/17 00:00 97.6 75 20 136/63 (87) 100 01/06/17 20:00 Nasal Cannula 3.00 01/06/17 20:00 97.8 78 22 141/76 (97) 93 01/06/17 18:01 97.9 78 20 136/60 (85) 99 01/06/17 17:44 99 21 -: 01/05/17 0810 01/06/17 0723 Physical Exam General Appearance: No Acute Distress, Comfortable Eyes Eye Exam: Pupils Equal Throat Throat Exam: Oral Mucosa Mellen & Moist Pulmonary Resp Exam: No Distress, Crackles, Rhonchi, Decreased Bases, Diminished Breath Sounds Cardiology CV Exam: Regular, Normal Sinus Rhythm Gastrointestinal/Abdomen GI Exam: Soft, Non-Tender, Bowel Sounds Present Extremeties Extremities Exam: Moderate Edema Neurologic Neuro Exam: Alert, Awake, Oriented Psychiatric Psych Exam: Appropriate Responses Assessment/Plan Assessment Summary: Anemia of CKD, Fluid/Volume Overload, End Stage Renal Disease Problem List: (1) Hypertension ICD Codes: I10 - Essential (primary) hypertension Status: Chronic (2) COPD (chronic obstructive pulmonary disease) ICD Codes: J44.9 - Chronic obstructive pulmonary disease, unspecified Status: Chronic (3) Diabetes mellitus type 2, uncontrolled ICD Codes: E11.65 - Uncontrolled type 2 diabetes mellitus Status: Chronic (4) UTI (urinary tract infection) ICD Codes: N39.0 - Urinary tract infection Status: Acute (5) CVA (cerebral infarction) ICD Codes: I63.9 - CVA (cerebral infarction) Status: Acute Plan Patient has been afebrile now. BP is stable. On Epogen with HD for anemia. Blood culture showing MRSA, and the urine culture is positive for Klebsiella and pseudomonas. On Meropenem and Daptomycin. ID is following. HD progress noted Has Vascath poorly functioning Had hemodialysis UF 2 L yesterday Vascath positional clots off dialyzer due to poor flow need a new line by next week Dr. Marion to follow Rafael Briggs MD Jan 07, 2017 15:36
[2017-01-07] MEDS: MONTELUKAST SODIUM 10 MG TAB PO SCH (21:49)
[2017-01-08] VITALS (11 sets, daily range): BP systolic 144–200; BP diastolic 70–89; PULSE 67–90; RESP 16–22; TEMP 97.5–97.8; O2SAT 93–100
[2017-01-08] MEDS: cloNIDine HCL 0.1 MG TAB PO SCH ×3 (06:42→21:49)
[2017-01-08] MEDS: LACTOBACILLUS ACIDOPHILUS TAB PO SCH ×3 (08:00→17:47)
[2017-01-08] MEDS: INSULIN ASPART SUPPLEMENTAL SCALE SQ SCH ×3 (08:00→21:49)
[2017-01-08] MEDS: HEPARIN SODIUM - SQ 10,000 UNITS/ML VIAL SQ SCH ×4 (08:00→23:58)
[2017-01-08 08:29] LABS: BICARBONATE 28.7 MEQ/L (21.0-32.0); POTASSIUM 4.3 MEQ/L (3.5-5.1)
[2017-01-08] MEDS: FLUOROMETHOLONE 0.1% OPHT SUSP 5 ML BTL EACH EYE SCH ×2 (09:00→21:48)
[2017-01-08] MEDS: SODIUM CHLORIDE 0.9% FLUSH 10 ML FLUSH IV FLUSH SCH ×2 (09:00→21:48)
[2017-01-08] MEDS: METOPROLOL TARTRATE 25 MG TAB PO SCH (09:00)
[2017-01-08] MEDS: hydrALAZINE HCL 100 MG TAB PO SCH ×3 (09:00→17:47)
[2017-01-08] MEDS: DORZOLAMIDE 2% OPTH SOLN 200 DROP/10 ML BTLO EACH EYE SCH ×2 (09:00→21:48)
--- NOTE | 2017-01-08 09:23 | HHI.FPPN ---
Subjective Remarks No acute events overnight. Pt lying in bed, doing well. She complains of numbness/tingling in her feet, most likely attributed to diabetic neuropathy. Afebrile. VSS. Denies CP, SOB, and N/V. (Nancy James MD R1) Objective Vitals Vital Signs Date Time Temp Pulse Resp B/P (MAP) Pulse Ox O2 Delivery O2 Flow Rate FiO2 01/08/17 04:00 97.8 69 21 162/79 (106) 93 01/08/17 00:00 Nasal Cannula 3.00 01/08/17 00:00 97.5 67 22 162/81 (108) 98 01/07/17 21:42 100 Nasal Cannula 2.00 01/07/17 21:15 Nasal Cannula 3.00 01/07/17 20:00 97.7 68 20 119/73 (88) 94 01/07/17 16:00 98.4 62 20 148/65 (92) 100 01/07/17 12:00 97.6 72 20 155/81 (105) 100 01/07/17 09:58 100 Nasal Cannula 2.00 I/O 01/07/17 01/07/17 01/07/17 01/08/17 01/08/17 01/08/17 07:00 15:00 23:00 07:00 15:00 23:00 Intake Total 660 ml 360 ml 0 ml Output Total 0 ml 600 ml Balance 660 ml 360 ml -600 ml Intake Oral 660 ml 360 ml 0 ml Output Urine Total 0 ml 600 ml # Voids 0 # Bowel Movements 0 0 0 (Nancy James MD R1) Result Diagram: 01/05/17 0810 01/08/17 0735 Objective Remarks General:: lying in bed, no acute distress, obese Skin: No rashes or lesions, VasCath site appears clean, dry CV: NRRR, no murmurs, rubs, or gallops, normal pulses Lungs: CTAB. No crackles or wheezes. Abdomen: Soft, nontender, nondistended MSK: No swelling or pain of the calf muscles Neuro: Awake, alert Procedures -Permcath removed and replaced with Vascath- 01/03 (Nancy James MD R1) A/P Assessment and Plan 51-year-old female with medical history of diabetes, ESRD (on HD), COPD, A. fib , [facility] and suspected U[facility]. Patient admitted for management of severe sepsis due to UTI and bacteremia from suspected perm cath infection. Discharge Planning Plan for discharge to care home facility once perm cath is replaced. Will coordinate with infectious disease regarding antibiotic infusion orders. (Nancy James MD R1) Attending Attestation Patient seen and examined. Case reviewed and discussed with the resident team. Agree with plan of care as discussed with me and documented in the resident note. (Charlene Mata MD) Problem List: (1) Central line infection ICD Codes: T80.219A - Unspecified infection due to central venous catheter, initial encounter Status: Acute Plan: Patient found to meet severe sepsis criteria on admission with sources including perm cath infection and urinary tract infections MRSA bacteremia due to PermCath; replaced with VasCath 01/03 Bacteremia resolved with no growth documented for > 48 hours on BCx x2 after PermCath removal Culture history Item Value Date Time Aerobic Blood Culture - Final Complete 01/01/17 1052 Blood Peripheral S. Aureus Mrsa Aerobic Blood Culture - Final Complete 01/02/17 1550 Blood Peripheral NO GROWTH IN 5 DAYS Aerobic Blood Culture - Final Complete 01/02/17 1600 Blood Peripheral NO GROWTH IN 5 DAYS Aerobic Blood Culture - Preliminary Resulted 01/04/17 0759 Blood Peripheral NO GROWTH IN 3 DAYS Aerobic Blood Culture - Preliminary Resulted 01/04/17 1427 Blood Peripheral NO GROWTH IN 3 DAYS - ID consulted, appreciate recommendations - Continue daptomycin for MRSA - Continue meropenem for UTI due to ESBL pos. Klebsiella and Pseudomonas - TTE was negative for vegetations - Continue to follow repeat cultures (urine and blood cultures), negative to date. Consider [place] if repeat cultures are positive. - PermCath to be placed today, will coordinate with ID regarding abx infusion orders Antibiotic history Daptomycin 01/02 - present Meropenem 01/04 - present Zosyn 01/01 - 01/04 Azithromycin 01/01 - 01/02 (2 doses) (2) UTI (urinary tract infection) ICD Codes: N39.0 - Urinary tract infection Status: Acute Plan: UTI with Klebsiella ESBL+ and Pseudomonas Item Value Date Time Urine Culture - Final Complete 01/01/17 1102 Urine Catheterized Urine Pseudomonas Aeruginosa Initially with sepsis, now resolved - ID on board, appreciate recommendations - Meropenem as above (3) End stage kidney disease ICD Codes: N18.6 - End stage renal disease Status: Chronic Plan: Nephrology following for HD management - HD normal schedule: Sunday - monitor electrolytes, I/O - renally dose meds - avoid nephrotoxic agents where possible (4) COPD (chronic obstructive pulmonary disease) ICD Codes: J44.9 - Chronic obstructive pulmonary disease, unspecified Status: Chronic Plan: - Continue home DuoNebs (5) Hypertension ICD Codes: I10 - Essential (primary) hypertension Status: Chronic Plan: BP in good control at present - Continue home meds (6) Diabetes ICD Codes: E11.9 - Type 2 diabetes mellitus without complications Plan: BSG 173 - 207 last 24 hours - Low dose novolog SSI - BSG goal 140-180 - hold home meds - Check sugar AC&HS (7) Nutrition, metabolism, and development symptoms ICD Codes: R63.8 - Other symptoms and signs concerning food and fluid intake Plan: Fluids: not indicated at this time Electrolytes: WNL, replete as needed Nutrition: renal diet DVT ppx: heparin 5,000 units Q8h SQ Code status: Full code Dispo: To rehab / SNF 01/08 after replacement of PermCath today (Nancy James MD R1) Problem Qualifiers (1) Central line infection: Qualified Codes: T80.219A - Unspecified infection due to central venous catheter, initial encounter (2) Diabetes: Nancy James MD R1 Jan 08, 2017 09:23 Charlene Mata MD Jan 09, 2017 11:51
[2017-01-08] MEDS ORDERED: MIDAZOLAM HCL 2 MG/2 ML VIAL ONE (10:47)
[2017-01-08] MEDS ORDERED: LIDOCAINE 1%/EPINEPHrine 1:100,000 SOLN 20 ML VIAL ONE (11:15)
--- NOTE | 2017-01-08 11:40 | PD.RAD ---
Post Procedure Progress Note Pre Procedure Diagnosis: (1) Chronic renal insufficiency (2) End stage kidney disease Post Procedure Diagnosis: (1) End stage kidney disease (2) Chronic renal insufficiency Procedure Date: Jan 08, 2017 Supervising Radiologist: Nicolas Montiel Estimated blood loss: 3cc Anesthesia: Local, Conscious Sedation Plan of Activity Patient to Unit: Nursing Unit Patient Condition: Fair Additional Comments: PermCath placed via the right IJ via a new stick. Catheter in good position OK for use. Full dictated report tot follow See PACS Report for procedural detail/treatment Nicolas Montiel MD Jan 08, 2017 11:40
[2017-01-08] MEDS ORDERED: SODIUM CHLORIDE 0.9% FLUSH 10 ML FLUSH IV FLUSH PRN (11:45)
[2017-01-08] MEDS ORDERED: HEPARIN SODIUM - IV 2,000 UNITS/2 ML VIAL IV FLUSH PRN (11:45)
--- NOTE | 2017-01-08 14:47 | HHI.DS ---
Discharge Summary Admission Date Jan 01, 2017 at 12:57 Admitting Diagnosis SEPSIS,UTI, PULM EDEMA ON DIALYSIS (1) Central line infection Plan: Patient found to meet severe sepsis criteria on admission with sources including perm cath infection and urinary tract infections MRSA bacteremia due to PermCath; replaced with VasCath 01/03 Bacteremia resolved with no growth documented for > 48 hours on BCx x2 after PermCath removal Culture history Item Value Date Time Aerobic Blood Culture - Final Complete 01/01/17 1052 Blood Peripheral S. Aureus Mrsa Aerobic Blood Culture - Final Complete 01/02/17 1550 Blood Peripheral NO GROWTH IN 5 DAYS Aerobic Blood Culture - Final Complete 01/02/17 1600 Blood Peripheral NO GROWTH IN 5 DAYS Aerobic Blood Culture - Preliminary Resulted 01/04/17 0759 Blood Peripheral NO GROWTH IN 3 DAYS Aerobic Blood Culture - Preliminary Resulted 01/04/17 1427 Blood Peripheral NO GROWTH IN 3 DAYS - ID consulted, appreciate recommendations - Continue daptomycin for MRSA - Continue meropenem for UTI due to ESBL pos. Klebsiella and Pseudomonas - TTE was negative for vegetations - Continue to follow repeat cultures (urine and blood cultures), negative to date. Consider [place] if repeat cultures are positive. - PermCath to be placed today, will coordinate with ID regarding abx infusion orders Antibiotic history Daptomycin 01/02 - present Meropenem 01/04 - present Zosyn 01/01 - 01/04 Azithromycin 01/01 - 01/02 (2 doses) ICD Codes: T80.219A - Unspecified infection due to central venous catheter, initial encounter Status: Acute (2) UTI (urinary tract infection) Plan: UTI with Klebsiella ESBL+ and Pseudomonas Item Value Date Time Urine Culture - Final Complete 01/01/17 1102 Urine Catheterized Urine Pseudomonas Aeruginosa Initially with sepsis, now resolved - ID on board, appreciate recommendations - Meropenem as above ICD Codes: N39.0 - Urinary tract infection Status: Acute (3) End stage kidney disease Plan: Nephrology following for HD management - HD normal schedule: Sunday - monitor electrolytes, I/O - renally dose meds - avoid nephrotoxic agents where possible ICD Codes: N18.6 - End stage renal disease Status: Chronic (4) COPD (chronic obstructive pulmonary disease) Plan: - Continue home DuoNebs ICD Codes: J44.9 - Chronic obstructive pulmonary disease, unspecified Status: Chronic (5) Hypertension Plan: BP in good control at present - Continue home meds ICD Codes: I10 - Essential (primary) hypertension Status: Chronic (6) Diabetes Plan: BSG 140 - 230 last 24 hours - Low dose novolog SSI - BSG goal 140-180 - hold home meds - Check sugar AC&HS ICD Codes: E11.9 - Type 2 diabetes mellitus without complications (7) Nutrition, metabolism, and development symptoms Plan: Fluids: not indicated at this time Electrolytes: WNL, replete as needed Nutrition: renal diet DVT ppx: heparin 5,000 units Q8h SQ Code status: Full code Dispo: To rehab / SNF 01/08 after replacement of PermCath ICD Codes: R63.8 - Other symptoms and signs concerning food and fluid intake Procedures -Permcath removed and replaced with Vascath- 01/03 Brief History Patient is a 51-year-old female with medical history of diabetes, ESRD (on HD), HTN, CVA and COPD in by EMS from [facility] due to altered mental status and suspected of UTI. Patient was difficult to arouse during beginning interview. Patient with fluctuating altered mental status on during hpi interview. However she was able to provide correct name, location, and year. Patient stated for the past couple of days she has not been feeling well. She reports cloudy foul smelling urine. Denies dysuria, fever, chills, abdominal pain, N/V, back pain, chest pain, or shortness of breath. No patient received hemodialysis on Sunday. Patient's older sister sister Lydia ([phone]) was contacted. She has not seen the patient in the past 2 weeks. However stated that at baseline patient is alert and oriented no history of dementia. CBC/BMP: 01/05/17 0810 01/08/17 0735 Significant Findings Laboratory Tests Test 01/06/17 07:23 01/08/17 07:35 Blood Urea Nitrogen 42 MG/DL (7-18) 30 MG/DL (7-18) Creatinine 4.80 MG/DL (0.50-1.00) 3.79 MG/DL (0.50-1.00) Random Glucose 172 MG/DL (74-106) 157 MG/DL (74-106) Sodium Level 133 MEQ/L (136-145) 132 MEQ/L (136-145) Chloride Level 97 MEQ/L (98-107) 94 MEQ/L (98-107) Estimat Glomerular Filtration Rate 10 ML/MIN (>89) 13 ML/MIN (>89) PE at Discharge General:: lying in bed, no acute distress, obese Skin: No rashes or lesions, VasCath site appears clean, dry CV: NRRR, no murmurs, rubs, or gallops, normal pulses Lungs: CTAB. No crackles or wheezes. Abdomen: Soft, nontender, nondistended MSK: No swelling or pain of the calf muscles Neuro: Awake, alert Pt Condition on Discharge: Stable Discharge Disposition: Discharge to SNF Discharge Instructions DIET: Follow Instructions for: Diabetic Diet, Renal Failure Diet Activities you can perform: Weight Bearing as Nancy Davidson MD R1 Jan 08, 2017 14:47
--- NOTE | 2017-01-08 15:06 | HHI.NPPN ---
Subjective General Problems: Anemia, Edema Renal Failure: End Stage Renal Disease History of Present Illness 51-year-old female known to me from before with past medical history of hypertension, diabetes mellitus, end-stage renal disease on hemodialysis started recently, history of cerebrovascular accident, chronic anemia, sleep apnea, was transferred here from the alf because of fever and foul smelling of the urine. I was called to see the patient for the management of dialysis. She has been on hemodialysis Sunday, and Sunday. Additional Remarks Patient seen after the PermCath, has been sleepy, not in distress. Review of Systems General Constitutional: Fatigue Respiratory Lungs: SOB Cardiovascular Cardiac: Edema, BALL Objective Data Data Vital Signs Date Time Temp Pulse Resp B/P (MAP) Pulse Ox O2 Delivery O2 Flow Rate FiO2 01/08/17 13:54 76 18 144/78 (100) 100 01/08/17 13:25 75 18 152/83 (106) 100 01/08/17 12:55 75 18 153/73 (99) 100 01/08/17 12:25 75 18 170/70 (103) 100 01/08/17 11:55 84 16 154/74 (100) 100 01/08/17 11:40 97.5 90 16 168/80 (109) 100 01/08/17 04:00 97.8 69 21 162/79 (106) 93 01/08/17 00:00 Nasal Cannula 3.00 01/08/17 00:00 97.5 67 22 162/81 (108) 98 01/07/17 21:42 100 Nasal Cannula 2.00 01/07/17 21:15 Nasal Cannula 3.00 01/07/17 20:00 97.7 68 20 119/73 (88) 94 01/07/17 16:00 98.4 62 20 148/65 (92) 100 -: 01/05/17 0810 01/08/17 0735 Physical Exam General Appearance: No Acute Distress, Comfortable Eyes Eye Exam: Pupils Equal Throat Throat Exam: Oral [place]uc[place] & Moist Pulmonary Resp Exam: No Distress, Crackles, Rhonchi, Decreased Bases, Diminished Breath Sounds Cardiology CV Exam: Regular, Normal Sinus Rhythm Gastrointestinal/Abdomen GI Exam: Soft, Non-Tender, Bowel Sounds Present Extremeties Extremities Exam: Moderate Edema Psychiatric Psych Exam: Appropriate Responses Assessment/Plan Assessment Summary: Anemia of CKD, Fluid/Volume Overload, End Stage Renal Disease Problem List: (1) Hypertension ICD Codes: I10 - Essential (primary) hypertension Status: Chronic (2) COPD (chronic obstructive pulmonary disease) ICD Codes: J44.9 - Chronic obstructive pulmonary disease, unspecified Status: Chronic (3) Diabetes mellitus type 2, uncontrolled ICD Codes: E11.65 - Uncontrolled type 2 diabetes mellitus Status: Chronic (4) UTI (urinary tract infection) ICD Codes: N39.0 - Urinary tract infection Status: Acute (5) CVA (cerebral infarction) ICD Codes: I63.9 - CVA (cerebral infarction) Status: Acute Plan Patient has been afebrile now. BP is stable. On Epogen with HD for anemia. Blood culture showing MRSA, and the urine culture is positive for Klebsiella and pseudomonas. On Meropenem and Daptomycin. ID is following. HD to continue TTS. PermCath done. Continue antibiotics, afebrile and repeat BC is negative. Zi Kemp MD Jan 08, 2017 15:06
--- NOTE | 2017-01-08 15:38 | HHI.IDPN ---
Subjective Subjective Remarks Permacath placed no fever repeat BC neg final Antibiotics dapto meropenem Allergies: Coded Allergies: fentanyl (Verified Allergy, Unknown, 10/25/16) morphine (Unverified Allergy, Unknown, 09/26/16) vancomycin (Verified Adverse Reaction, Severe, Rash, 10/17/16) Objective . Vital Signs Date Time Temp Pulse Resp B/P (MAP) Pulse Ox O2 Delivery O2 Flow Rate FiO2 01/08/17 13:54 76 18 144/78 (100) 100 01/08/17 13:25 75 18 152/83 (106) 100 01/08/17 12:55 75 18 153/73 (99) 100 01/08/17 12:25 75 18 170/70 (103) 100 01/08/17 11:55 84 16 154/74 (100) 100 01/08/17 11:40 97.5 90 16 168/80 (109) 100 01/08/17 08:00 97.7 78 20 200/86 (124) 97 01/08/17 04:00 97.8 69 21 162/79 (106) 93 01/08/17 00:00 Nasal Cannula 3.00 01/08/17 00:00 97.5 67 22 162/81 (108) 98 01/07/17 21:42 100 Nasal Cannula 2.00 01/07/17 21:15 Nasal Cannula 3.00 01/07/17 20:00 97.7 68 20 119/73 (88) 94 01/07/17 16:00 98.4 62 20 148/65 (92) 100 . Laboratory Tests Test 01/08/17 07:35 Blood Urea Nitrogen 30 MG/DL Creatinine 3.79 MG/DL Random Glucose 157 MG/DL Calcium Level 8.9 MG/DL Sodium Level 132 MEQ/L Potassium Level 4.3 MEQ/L Chloride Level 94 MEQ/L Carbon Dioxide Level 28.7 MEQ/L Anion Gap 9 MEQ/L Estimat Glomerular Filtration Rate 13 ML/MIN Imaging Last Impressions Central Venous Line 01/03/17 0000 Signed Impressions: Service Date/Time: Tuesday, January 03, 2017 00:00 - CONCLUSION: Uncomplicated Permcath removal. Wilner Potter Jr., MD Catheter Placement X-Ray 01/03/17 0000 Signed Impressions: Service Date/Time: Tuesday, January 03, 2017 15:22 - CONCLUSION: Uncomplicated line placement as above. Wilner Potter Jr., MD Chest X-Ray 01/01/17 1051 Signed Impressions: Service Date/Time: Sunday, January 01, 2017 11:16 - CONCLUSION: 1. Mild positive fluid balance. 2. Mild left lung base airspace disease, likely atelectasis although pneumonia or aspiration cannot be entirely excluded in the appropriate clinical setting. Jose Alberto Parker MD Head CT 01/01/17 0000 Signed Impressions: Service Date/Time: Sunday, January 01, 2017 17:56 - CONCLUSION: No acute findings. Wilenr Bashir MD Physical Exam CONSTITUTIONAL/GENERAL: This is an adequately nourished patient, in no apparent distress, TUBES/LINES/DRAINS: Permacath SKIN: No jaundice, rashes, or lesions. Skin temperature appropriate. Not diaphoretic. EYES: Pupils equal and round and reactive. Extraocular motions intact. No scleral icterus. No injection or drainage. Fundi not examined. CARDIOVASCULAR: Regular rate and rhythm without murmurs, gallops, or rubs. No JVD. Peripheral pulses symmetric. RESPIRATORY/CHEST: Symmetric, unlabored respirations. Clear to auscultation. Breath sounds equal bilaterally. GASTROINTESTINAL: Abdomen soft, non-tender,mildly distended. MUSCULOSKELETAL: Extremities without clubbing, cyanosis, or edema. Some tree bark szymanski present on b/l feet : bladder not palpable NEUROLOGICAL: fully awake and alert, follows commands, converses approprietely, sppech normal PSYCHIATRIC: calm pleasant Assessment & Plan Remarks Sepsis UTI, ESBL + Kleb. PSAE MRSA sepsis -liekly from Permacath - sp removal of Permacath - 2 D echo negative Allergic reaction to vanco Doubt PNA Funguria ? significance cont meropenem x 1 more day to complete 7 days of treamtent cont daptomycin - can be given with HD 3 x/week if more positive clx after Permacath removal will get [place] dw Kristine Hearn MD Jan 08, 2017 15:38
--- NOTE | 2017-01-08 15:49 | RADRPT ---
EXAM DATE/TIME: 01/08/2017 11:03 [place] COMPARISON: TEMP CATH LEX CATH REM W/O FL NON-TUNNELLED, January 08, 2017, 0:00. INDICATIONS : Patient presents with a temporary dialysis catheter in need of a permanant one. MEDICAL HISTORY : 1. DM 2. HTN 3. ESRD 4. CVA 5. A fib 6. Chronic anemia SURGICAL HISTORY : Perm Cath Vas Cath ENCOUNTER: Initial ACUITY: 1 week PAIN SCORE: 0/10 FLUORO TIME: 1.0 minutes IMAGE SERIES: 1 SEDATION TIME: 30 minutes ACCESS: Right internal jugular vein SEDATION: 1.) 2 mg midazolam (Versed) IV Prophylactic antibiotics were administered with appropriate pre-procedure timing. Vancomycin within 2 hours of procedure, Ancef (or alternative) within 1 hour of procedure. DEVICE: 1. 15 [place] dual lumen 19 cm Ferris II Plus catheter PROCEDURE : 1. Ultrasound-guided venipuncture. 2. PermaCath placement. 3. Conscious sedation with continuous EKG and oximetry monitoring. The risks, benefits and alternatives to the procedure were explained and verbal and written consent w as obtained. The site was prepped in sterile fashion. Full sterile technique was used, including ca p, mask, sterile gloves and gown and a large sterile sheet. Hand hygiene and 2% chlorhexidine and/or betadine/alcohol prep was utilized per protocol for cutaneous antisepsis. Sterile gel and sterile p robe cover were utilized for ultrasound guidance. The skin and subcutaneous tissues were infiltrated with local anesthetic solution. With ultrasound and fluoroscopic guidance a dermatotomy was created over the right internal jugular v ein. A micropuncture set was used to access the targeted vein and serial dilatation was performed to accept the prescribed length catheter. A subcutaneous tunnel was created in a retrograde fashion th e catheter was pulled through the tunnel. The catheter was flushed and assembled and locked with hep angela. The catheter was sutured in place. Conscious sedation was performed with the prescribed dosages and duration as above in the presence of an independent trained radiology nurse to assist in the monitoring of the patient. EKG and oximetry remained stable throughout the procedure. The patient tolerated the procedure well and there were n o complications. The patient was sent to post anesthesia recovery in stable condition. CONCLUSION: Uncomplicated PermaCath placement as above. Nicolas Montiel MD on January 08, 2017 at 15:47 Board Certified Radiologist. This report was verified electronically.
[2017-01-08] MEDS: PRAVASTATIN SOD 40 MG TAB PO SCH (17:47)
[2017-01-08] MEDS: CHOLECALCIFEROL (VIT D3) 5000 UNIT CAP PO SCH (17:47)
[2017-01-08] MEDS: amLODIPine BESYLATE 5 MG TAB PO SCH (17:47)
[2017-01-08] MEDS: DOCUSATE SODIUM 50 MG/SENNA 8.6 MG TAB PO SCH ×2 (17:47→22:00)
[2017-01-08] MEDS: MEROPENEM INJ 500 MG in SODIUM CHLORIDE 0.9% INJ 100 ML IV SCH (18:20)
[2017-01-08] MEDS: DAPTOmycin INJ 600 MG in SODIUM CHLORIDE 0.9% INJ 100 ML IV SCH (18:51)
[2017-01-08] MEDS: MONTELUKAST SODIUM 10 MG TAB PO SCH (21:49)
[2017-01-09] VITALS: BP 165/77; PULSE 77; RESP 18; TEMP 97.8; O2SAT 99
[2017-01-09 04:00] VITALS: BP 172/85; PULSE 80; RESP 18; TEMP 98; O2SAT 99
[2017-01-09] MEDS: cloNIDine HCL 0.1 MG TAB PO SCH ×2 (05:00→16:18)
[2017-01-09 08:00] VITALS: BP 174/79; PULSE 71; RESP 20; TEMP 98; O2SAT 96
--- NOTE | 2017-01-09 08:17 | HHI.FPPN ---
Subjective Remarks No acute events overnight. Perm cath placed yesterday. Patient tolerated procedure well. She complains slight soreness from cath site. Afebrile. BP elevated at 165/77, but she is receiving dialysis today. She denies CP, SOB, abdominal pain, and N/V. (Nancy James MD R1) Objective Vitals Vital Signs Date Time Temp Pulse Resp B/P (MAP) Pulse Ox O2 Delivery O2 Flow Rate FiO2 01/09/17 04:00 98.0 80 18 172/85 (114) 99 01/09/17 00:00 97.8 77 18 165/77 (106) 99 01/08/17 20:00 97.6 83 18 176/86 (116) 100 01/08/17 20:00 Nasal Cannula 1.00 01/08/17 16:00 97.7 72 20 186/89 (121) 100 01/08/17 13:54 76 18 144/78 (100) 100 01/08/17 13:25 75 18 152/83 (106) 100 01/08/17 12:55 75 18 153/73 (99) 100 01/08/17 12:25 75 18 170/70 (103) 100 01/08/17 11:55 84 16 154/74 (100) 100 01/08/17 11:40 97.5 90 16 168/80 (109) 100 I/O 01/08/17 01/08/17 01/08/17 01/09/17 01/09/17 01/09/17 07:00 15:00 23:00 07:00 15:00 23:00 Intake Total 0 ml 100 ml 240 ml Output Total 600 ml 1000 ml Balance -600 ml 100 ml -760 ml Intake Oral 0 ml 240 ml IV Total 100 ml Output Urine Total 600 ml 1000 ml # Bowel Movements 0 0 (Nancy James MD R1) Result Diagram: 01/05/17 0810 01/08/17 0735 Objective Remarks General: lying in bed, no acute distress, obese Skin: No rashes or lesions, PermCath site appears clean, dry CV: NRRR, no murmurs, rubs, or gallops, normal pulses Lungs: CTAB. No crackles or wheezes. Abdomen: Soft, nontender, nondistended MSK: No swelling or pain of the calf muscles Neuro: Awake, alert Procedures -Permcath removed and replaced with Vascath- 01/03 -Vascath removed and replaced with Permcath 01/08 (Nancy James MD R1) A/P Assessment and Plan 51-year-old female with medical history of diabetes, ESRD (on HD), COPD, A. fib , CVA brought to ED via EMS from [facility] due to AMS and suspected UTI. Patient admitted for management of severe sepsis due to UTI and bacteremia from suspected perm cath infection. Discharge Planning Plan for discharge to longterm facility. Perm cath placed. Will coordinate with infectious disease regarding antibiotic infusion orders. (Nancy James MD R1) Attending Attestation Patient seen and examined. Case reviewed and discussed with the resident team. Agree with plan of care as discussed with me and documented in the resident note. (Naa Gu MD) Problem List: (1) Central line infection ICD Codes: T80.219A - Unspecified infection due to central venous catheter, initial encounter Status: Acute Plan: Patient found to meet severe sepsis criteria on admission with sources including perm cath infection and urinary tract infections MRSA bacteremia due to PermCath; replaced with VasCath 01/03 Bacteremia resolved with no growth documented for > 48 hours on BCx x2 after PermCath removal Culture history Item Value Date Time Aerobic Blood Culture - Final Complete 01/01/17 1052 Blood Peripheral S. Aureus Mrsa Aerobic Blood Culture - Final Complete 01/02/17 1550 Blood Peripheral NO GROWTH IN 5 DAYS Aerobic Blood Culture - Final Complete 01/02/17 1600 Blood Peripheral NO GROWTH IN 5 DAYS Aerobic Blood Culture - Preliminary Resulted 01/04/17 0759 Blood Peripheral NO GROWTH IN 3 DAYS Aerobic Blood Culture - Preliminary Resulted 01/04/17 1427 Blood Peripheral NO GROWTH IN 3 DAYS - ID consulted, appreciate recommendations - Continue daptomycin for MRSA - Continue meropenem for UTI due to ESBL pos. Klebsiella and Pseudomonas - TTE was negative for vegetations - Continue to follow repeat cultures (urine and blood cultures), negative to date. Consider [place] if repeat cultures are positive. - PermCath placed yesterday. Will coordinate with ID regarding abx infusion orders Antibiotic history Daptomycin 01/02 - present Meropenem 01/04 - present Zosyn 01/01 - 01/04 Azithromycin 01/01 - 01/02 (2 doses) (2) UTI (urinary tract infection) ICD Codes: N39.0 - Urinary tract infection Status: Acute Plan: UTI with Klebsiella ESBL+ and Pseudomonas Item Value Date Time Urine Culture - Final Complete 01/01/17 1102 Urine Catheterized Urine Pseudomonas Aeruginosa Initially with sepsis, now resolved - ID on board, appreciate recommendations - Meropenem as above, last dose to be given this afternoon (3) End stage kidney disease ICD Codes: N18.6 - End stage renal disease Status: Chronic Plan: Nephrology following for HD management - HD normal schedule: Sunday - monitor electrolytes, I/O - renally dose meds - avoid nephrotoxic agents where possible (4) COPD (chronic obstructive pulmonary disease) ICD Codes: J44.9 - Chronic obstructive pulmonary disease, unspecified Status: Chronic Plan: - Continue home DuoNebs (5) Hypertension ICD Codes: I10 - Essential (primary) hypertension Status: Chronic Plan: BP today 165/77, patient will receive dialysis today - Continue home meds (6) Diabetes ICD Codes: E11.9 - Type 2 diabetes mellitus without complications Plan: BSG 173 - 220 last 24 hours - Low dose novolog SSI - BSG goal 140-180 - hold home meds - Check sugar AC&HS (7) Nutrition, metabolism, and development symptoms ICD Codes: R63.8 - Other symptoms and signs concerning food and fluid intake Plan: Fluids: not indicated at this time Electrolytes: WNL, replete as needed Nutrition: renal diet DVT ppx: heparin 5,000 units Q8h SQ Code status: Full code Dispo: To rehab / SNF 01/09 (Nancy James MD R1) Problem Qualifiers (1) Central line infection: Qualified Codes: T80.219A - Unspecified infection due to central venous catheter, initial encounter (2) Diabetes: Nancy James MD R1 Jan 09, 2017 08:17 Naa Gu MD Jan 09, 2017 12:15
[2017-01-09 08:59] LABS: BICARBONATE 26.8 MEQ/L (21.0-32.0); POTASSIUM 4.3 MEQ/L (3.5-5.1)
[2017-01-09] MEDS: INSULIN ASPART SUPPLEMENTAL SCALE SQ SCH ×4 (09:00→20:18)
[2017-01-09] MEDS: EPOETIN ALFA 10,000 UNITS/ML VIAL IV PUSH PRN (11:33)
[2017-01-09] MEDS: LACTOBACILLUS ACIDOPHILUS TAB PO SCH ×3 (12:00→16:18)
[2017-01-09] MEDS: hydrALAZINE HCL 100 MG TAB PO SCH ×3 (13:26→17:09)
[2017-01-09] MEDS: METOPROLOL TARTRATE 25 MG TAB PO SCH (13:26)
[2017-01-09] MEDS: PRAVASTATIN SOD 40 MG TAB PO SCH (13:26)
[2017-01-09] MEDS: amLODIPine BESYLATE 5 MG TAB PO SCH (13:26)
[2017-01-09] MEDS: CHOLECALCIFEROL (VIT D3) 5000 UNIT CAP PO SCH (13:27)
[2017-01-09] MEDS: DOCUSATE SODIUM 50 MG/SENNA 8.6 MG TAB PO SCH ×2 (13:27→20:18)
[2017-01-09] MEDS: HEPARIN SODIUM - SQ 10,000 UNITS/ML VIAL SQ SCH ×2 (13:28→16:18)
[2017-01-09] MEDS: SODIUM CHLORIDE 0.9% FLUSH 10 ML FLUSH IV FLUSH SCH ×2 (13:29→20:17)
[2017-01-09] MEDS: FLUOROMETHOLONE 0.1% OPHT SUSP 5 ML BTL EACH EYE SCH ×2 (13:29→19:58)
[2017-01-09] MEDS: DORZOLAMIDE 2% OPTH SOLN 200 DROP/10 ML BTLO EACH EYE SCH ×2 (13:30→20:18)
[2017-01-09 13:55] VITALS: BP 154/80; PULSE 79; RESP 20; TEMP 98.1; O2SAT 100
[2017-01-09] MEDS ORDERED: MEROPENEM INJ 500 MG in SODIUM CHLORIDE 0.9% INJ 100 ML IV SCH (14:00)
[2017-01-09 16:00] VITALS: BP 139/71; PULSE 71; RESP 20; TEMP 98.8; O2SAT 100
[2017-01-09] MEDS: MEROPENEM INJ 500 MG in SODIUM CHLORIDE 0.9% INJ 100 ML IV SCH (16:15)
--- NOTE | 2017-01-09 16:22 | HHI.FF ---
Infusion Therapy Location of Infusion Therapy: Dialysis Center Patient Information Patient Weight 94.9 kg Diagnosis: Diagnosis MRSA sepsis Coded Allergies: fentanyl (Verified Allergy, Unknown, 10/25/16) morphine (Unverified Allergy, Unknown, 09/26/16) vancomycin (Verified Adverse Reaction, Severe, Rash, 10/17/16) Administer Medication Daptomycin 600 mg IV q 48 hours w/Hemodialysis ,,Sun Start Treatment: Jan 09, 2017 Stop Treatment: Jan 22, 2017 Additional Information Venous access: Tunneled Catheter Additional Instructions [x] Peripheral flush and dressing changes per protocol [x] Implanted port and central millinery designer: * Implanted port: 10 ml Normal Saline followed by 5 ml Heparin 100 units/ml Heparin flush after each use and monthly to maintain. [] May leave port accessed during therapy. [] May leave peripheral site accessed for duration of therapy. [x] If patient has SOB or respiratory distress, check oxygen saturation. If less than 90% or clinical signs of respiratory distress, administer oxygen at 2 L/min. via nasal cannula and notify physician. [x] Anaphylaxis/Reaction orders: * Stop infusion. * Keep IV line open with saline flush. * Notify physician. * Monitor vital signs every 15 minutes until symptoms resolve. * Check Oxygen saturation; Oxygen at 2 L/min. via nasal cannula if less than 90% or clinical signs of respiratory distress. * Administer diphenhydramine (Benadryl) 25 mg IV STAT, (unless patient has received as pre-med). May repeat once, if necessary. * Solu-Cortef 250 mg IVP over 30-60 seconds, use 100 mg vials for each dissolution. * Epinephrine (1mg/1 ml) 0.3 mg subcutaneously or IVP now with any signs of respiratory distress. * Check with physician for new additional pre-med orders if patient is re- challenged or re-treated. [x] May remove PICC line when treatment complete, after confirming with Physician. [x] If the patient is admitted to the hospital, the ED, or transferred via [facility] , complete transfer form including medication reconciliation order sheet. Laboratory Tests Weekly Labs: CBC w/diff, LFT's (Hepatic function test), Serum CK Levels Kristine Rick MD Jan 09, 2017 16:22
[2017-01-09 17:00] VITALS: O2SAT 100
--- NOTE | 2017-01-09 19:14 | HHI.NPPN ---
Subjective General Problems: Anemia, Edema Renal Failure: End Stage Renal Disease History of Present Illness 51-year-old female known to me from before with past medical history of hypertension, diabetes mellitus, end-stage renal disease on hemodialysis started recently, history of cerebrovascular accident, chronic anemia, sleep apnea, was transferred here from the long-term because of fever and foul smelling of the urine. I was called to see the patient for the management of dialysis. She has been on hemodialysis Sunday, and Sunday. Additional Remarks Patient is alert now, not in distress. Review of Systems General Constitutional: Fatigue Respiratory Lungs: SOB Cardiovascular Cardiac: Edema, BALL Objective Data Data 01/09/17 01/10/17 19:00 07:00 Intake Total 100 ml Output Total 3350 ml Balance -3250 ml IV Total 100 ml Output Urine Total 350 ml Hemodialysis 3000 ml Vital Signs Date Time Temp Pulse Resp B/P (MAP) Pulse Ox O2 Delivery O2 Flow Rate FiO2 01/09/17 17:00 100 Nasal Cannula 2.00 01/09/17 16:00 98.8 71 20 139/71 (93) 100 01/09/17 13:55 98.1 79 20 154/80 (104) 100 01/09/17 08:00 Nasal Cannula 2.00 01/09/17 08:00 98.0 71 20 174/79 (110) 96 01/09/17 04:00 98.0 80 18 172/85 (114) 99 01/09/17 00:00 97.8 77 18 165/77 (106) 99 01/08/17 20:00 97.6 83 18 176/86 (116) 100 01/08/17 20:00 Nasal Cannula 1.00 -: 01/05/17 0810 01/09/17 0757 Physical Exam General Appearance: No Acute Distress, Comfortable Eyes Eye Exam: Pupils Equal Throat Throat Exam: Oral Mucosa [place] & Moist Pulmonary Resp Exam: No Distress, Crackles, Rhonchi, Decreased Bases, Diminished Breath Sounds Cardiology CV Exam: Regular, Normal Sinus Rhythm Gastrointestinal/Abdomen GI Exam: Soft, Non-Tender, Bowel Sounds Present Extremeties Extremities Exam: Moderate Edema Neurologic Neuro Exam: Alert, Awake, Oriented Psychiatric Psych Exam: Appropriate Responses Assessment/Plan Assessment Summary: Anemia of CKD, Fluid/Volume Overload, End Stage Renal Disease Problem List: (1) Hypertension ICD Codes: I10 - Essential (primary) hypertension Status: Chronic (2) COPD (chronic obstructive pulmonary disease) ICD Codes: J44.9 - Chronic obstructive pulmonary disease, unspecified Status: Chronic (3) Diabetes mellitus type 2, uncontrolled ICD Codes: E11.65 - Uncontrolled type 2 diabetes mellitus Status: Chronic (4) UTI (urinary tract infection) ICD Codes: N39.0 - Urinary tract infection Status: Acute (5) CVA (cerebral infarction) ICD Codes: I63.9 - CVA (cerebral infarction) Status: Acute Plan Patient has been afebrile now. BP is stable. On Epogen with HD for anemia. Blood culture showing MRSA, and the urine culture is positive for Klebsiella and pseudomonas. On Meropenem and Daptomycin. ID is following. HD to continue TTS. PermCath done. Continue antibiotics, afebrile and repeat BC is negative. HD done today, for D/C once arranged. Zi Kemp MD Jan 09, 2017 19:14
[2017-01-09] MEDS: MONTELUKAST SODIUM 10 MG TAB PO SCH (20:18)
== END 2017-01-09 21:00 | DRG 314 ==
LOC: NEPE 10:23 → NEDA 12:57 → HCIS 14:21 → HIMN 15:25 → N04B 01-03 20:12
PROVIDERS: ADMIT Family Medicine; ATTEND Family Medicine
PROC: 5A1D70Z Performance of Urinary Filtration, Intermittent, Less than 6 Hours Per Day (ICD-10-PCS; 2017-01-02)
PROC: 05HM33Z Insertion of Infusion Device into Right Internal Jugular Vein, Percutaneous Approach (ICD-10-PCS; principal; 2017-01-03)
PROC: B513ZZA Fluoroscopy of Right Jugular Veins, Guidance (ICD-10-PCS; 2017-01-03)
PROC: 05PY33Z Removal of Infusion Device from Upper Vein, Percutaneous Approach (ICD-10-PCS; 2017-01-05)
PROC: 05HM33Z Insertion of Infusion Device into Right Internal Jugular Vein, Percutaneous Approach (ICD-10-PCS; 2017-01-08)
PROC: B543ZZA Ultrasonography of Right Jugular Veins, Guidance (ICD-10-PCS; 2017-01-08)
DX: T80.219A Unspecified infection due to central venous catheter, initial encounter (principal); A41.02 Sepsis due to Methicillin resistant Staphylococcus aureus; R65.21 Severe sepsis with septic shock; I12.0 Hypertensive chronic kidney disease with stage 5 chronic kidney disease or end stage renal disease; N18.6 End stage renal disease; I48.91 Unspecified atrial fibrillation; E11.22 Type 2 diabetes mellitus with diabetic chronic kidney disease; E11.65 Type 2 diabetes mellitus with hyperglycemia; E11.40 Type 2 diabetes mellitus with diabetic neuropathy, unspecified; Z79.4 Long term (current) use of insulin; N39.0 Urinary tract infection, site not specified; Y84.8 Other medical procedures as the cause of abnormal reaction of the patient, or of later complication, without mention of misadventure at the time of the procedure; B96.1 Klebsiella pneumoniae [K. pneumoniae] as the cause of diseases classified elsewhere; B96.5 Pseudomonas (aeruginosa) (mallei) (pseudomallei) as the cause of diseases classified elsewhere; Z16.12 Extended spectrum beta lactamase (ESBL) resistance; J44.9 Chronic obstructive pulmonary disease, unspecified; H54.61 Unqualified visual loss, right eye, normal vision left eye; H40.9 Unspecified glaucoma; G47.33 Obstructive sleep apnea (adult) (pediatric); Z86.73 Personal history of transient ischemic attack (TIA), and cerebral infarction without residual deficits; E66.9 Obesity, unspecified; Z68.31 Body mass index [BMI] 31.0-31.9, adult; D63.1 Anemia in chronic kidney disease; R32 Unspecified urinary incontinence; R82.99 Other abnormal findings in urine
CPT/HCPCS: 36556; 36558; 70450; 71010; 76937; 77001; 80048; 80053; 81001; 82550; 82948; 83605; 83690; 83735; 84100; 84484; 85025; 85610; 85730; 86403; 87015; 87040; 87071; 87077; 87086; 87106; 87186; 87205; 87449; 87641; 90935; 93005; 93308; 94150; 94640; 94664; 96374; 96375; 99152; 99153; C1750; C1752; C1769; J0171; J0456; J0461; J0878; J1580; J1644; J1815; J2185; J2250; J2405; J2543; J7030; J7050; P9047; Q4081

== ENCOUNTER 2017-01-16 18:27 | Emergency (ER) | payer OTHER ==
[~2017-01-16] VITALS: Ht 152.4 cm; Wt 93.0 kg
[~2017-01-16 18:27] MED LIST changes: -CEFE1INJ2 IV; -EPIN1INJ21 IV PUSH; -EPIN1INJ21 SQ
[2017-01-16 18:37] VITALS: BP 201/89; PULSE 79; RESP 18; TEMP 98.2; O2SAT 94
--- NOTE | 2017-01-16 18:42 | PD ---
HPI Chief Complaint: Skin Problem Time Seen by Provider: 18:42 Travel History International Travel<30 days: No Contact w/Intl Traveler<30days: No Traveled to known affect area: No History of Present Illness HPI Patient is a 51-year-old female with history of end-stage renal disease on hemodialysis ([employer] Dr Kemp), presents to emergency room for evaluation of pruritus. Patient reports that she was getting her dialysis today , reports that pruritus was getting so "bad," she asked for her dialysis to be stopped and she requested to be taken to the emergency room. Patient reports that the pruritus has been ongoing for the past week, patient reports that her skin all over and feels "itchy" reports increased pruritis to her face. Patient reports that she did not take any Benadryl for her pruritus. Patient cannot tell me how much of her dialysis she received today. Patient reports no new lotions or creams, reports that she was on an antibiotic but developed itching so she stopped taking the antibiotics. Patient cannot tell me what antibiotic she was on. Patient with no airway involvement this time. Patient with no chest pain or shortness of breath, no other complaints at this time. PFSH Past Medical History Hx Anticoagulant Therapy: Yes Arthritis: Yes Asthma: No Autoimmune Disease: No Anxiety: No Heart Rhythm Problems: Yes (A-Fib) Cancer: No Cardiovascular Problems: Yes High Cholesterol: Yes Chemotherapy: No Chest Pain: No Congestive Heart Failure: Yes (recently noted with diastolic dysfunction) COPD: Yes Cerebrovascular Accident: Yes Diabetes: Yes Patient Takes Glucophage: No Dialysis: Yes (Tue,th,sat RT chest vascath) Diminished Hearing: No Endocrine: Yes Gastrointestinal Disorders: Yes (HX of previous GI bleed) GERD: Yes Genitourinary: No Headaches: No Hiatal Hernia: No Heparin Induced Thrombocytopen: No Hypertension: Yes Immune Disorder: No Implanted Vascular Access Dvce: Yes Kidney Stones: No Musculoskeletal: No Neurologic: Yes Psychiatric: No Reproductive: No Respiratory: Yes (previous PE) Immunizations Current: Yes Migraines: No Radiation Therapy: No Renal Failure: Yes (chronic renal insufficiency) Seizures: No Sickle Cell Disease: No Sleep Apnea: Yes (Non-compliant with CPAP) Thyroid Disease: No Ulcer: No ?: Not Past Surgical History Abdominal Surgery: No AICD: No Arteriovenous Shunt: No Cardiac Surgery: No Ear Surgery: No Endocrine Surgery: No Eye Surgery: Yes (cataracts, AUGUST 10) Genitourinary Surgery: No Gynecologic Surgery: No Hysterectomy: No Insulin Pump: No Joint Replacement: No Neurologic Surgery: No Oral Surgery: No Pacemaker: No Thoracic Surgery: No Other Surgery: Yes (recent right eye scraping) Social History Alcohol Use: No Tobacco Use: No Substance Use: No Allergies-Medications (Allergen,Severity, Reaction): Coded Allergies: fentanyl (Verified Allergy, Unknown, 10/25/16) morphine (Unverified Allergy, Unknown, 09/26/16) vancomycin (Verified Adverse Reaction, Severe, Rash, 10/17/16) Reported Meds & Prescriptions Reported Meds & Active Scripts Active Pepcid (Famotidine) 20 Mg Tab 20 Mg PO BID PRN Diphenhydramine (Diphenhydramine HCl) 25 Mg Cap 25 Mg PO Q6H PRN Bedside Commode (Device) 1 Mis Mis Ea .ROUTE DIRECTED Famotidine 10 Mg Tab 10 Mg PO BID Novolog Inj (Insulin Aspart) 1,000 Unit/10 Ml Vial 1-9 Units SQ ACHS 30 Days Max dose at bedtime:( )units; sugars less than 70,(0)units; sugars 150-199,(1) unit; sugars 200-249,(3) units; sugars 250-299,(5) units; sugars 300-349,(7) units; sugars greater than 349,(9) units Catapres (Clonidine) 0.1 Mg Tab 0.1 Mg PO Q8HR Ipratropium Neb (Ipratropium Rogers) 0.5 Mg/2.5 Ml Amp 0.5 Mg NEB Q4HR NEB PRN 30 Days Vitamin D3 (Cholecalciferol) 5,000 Unit Cap 5,000 Units PO DAILY Norvasc (Amlodipine Besylate) 5 Mg Tab 5 Mg PO DAILY Solu-Cortef Inj (Hydrocortisone Sodium Succinate) 250 Mg/2 Ml Inj 250 Mg IV PUSH ONCE PRN Give over 30-60 seconds. Metoprolol Tartrate 25 Mg Tab 50 Mg PO DAILY Reported Flarex Opth Drops (Fluorometholone Acetate) 0.1% Susp 1 Drop EACH EYE BID Dorzolamide Opth Drops (Dorzolamide HCl) 2% Soln 1 Drop EACH EYE BID Hydralazine (Hydralazine HCl) 100 Mg Tab 100 Mg PO TID Take with meals Claritin (Loratadine) 10 Mg Cap 10 Mg PO DAILY Lactobacillus Acidophilus 1 Billion Cell Tab 1 Tab PO TIDAC Singulair (Montelukast Sodium) 10 Mg Tab 10 Mg PO HS Pravastatin 40 Mg Tab 40 Mg PO DAILY Polyethylene Glycol 3350 Powder (Polyethylene Glycol) 17 Gram Pow 17 Gm PO DAILY Review of Systems General / Constitutional: No: Fever Eyes: No: Visual changes HENT: No: Headaches, Vertigo, Lightheadedness, Sore Throat, Rhinitis, Neck Pain Cardiovascular: No: Chest Pain or Discomfort Respiratory: No: Shortness of Breath Gastrointestinal: No: Abdominal Pain Genitourinary: No: Dysuria Musculoskeletal: No: Pain Skin: Positive Itching, No Rash Neurologic: No: Weakness Psychiatric: No: Depression Endocrine: No: Polydipsia Hematologic/Lymphatic: No: Easy Bruising Physical Exam Narrative GENERAL: Well-nourished, well-developed patient. SKIN: Focused skin assessment warm/dry. Patient with dry skin, no obvious lesions or rash or erythema or signs of infection HEAD: Normocephalic. EYES: No scleral icterus. No injection or drainage. NECK: Supple, trachea midline. No JVD or lymphadenopathy. MOUTH: Airways open and patent, uvula is midline with no swelling, patient talking in full sentences, no trismus CARDIOVASCULAR: Regular rate and rhythm without murmurs, gallops, or rubs. Permacath in place RESPIRATORY: Breath sounds equal bilaterally. No accessory muscle use. GASTROINTESTINAL: Abdomen soft, non-tender, nondistended. MUSCULOSKELETAL: No cyanosis, or edema. BACK: Nontender without obvious deformity. No CVA tenderness. Data Data Last Documented VS Vital Signs Date Time Temp Pulse Resp B/P (MAP) Pulse Ox O2 Delivery O2 Flow Rate FiO2 01/16/17 18:37 98.2 79 18 201/89 (126) 94 Room Air Orders Orders Diphenhydramine (Benadryl) (01/16/17 18:45) Famotidine (Pepcid) (01/16/17 18:45) MDM Medical Decision Making Medical Screen Exam Complete: Yes Emergency Medical Condition: Yes Medical Record Reviewed: Yes Interpretation(s) Vital Signs Date Time Temp Pulse Resp B/P (MAP) Pulse Ox O2 Delivery O2 Flow Rate FiO2 01/16/17 18:37 98.2 79 18 201/89 (126) 94 Room Air 01/16/17 18:37 79 18 Differential Diagnosis Dermatitis Narrative Course 51-year-old female with history of end-stage renal disease on hemodialysis, presents to the emergency room complaints of pruritus. Patient has had pruritus for the past week, reports that it has been untreated as she is not taking any Benadryl for relief of symptoms. Patient with no airway involvement , plan to give patient a dose of Benadryl as well as Pepcid. Patient will follow-up with her primary care doctor and will return to emergency room as needed. Call was made to the [facility] dialysis, patient received 75% of her dialysis, 2.7 L of fluid was taken off. Signs and symptoms of when to return to the emergency room was reviewed with patient in detail. Diagnosis Primary Impression: Dermatitis Additional Impression: Generalized pruritus Patient Instructions: General Instructions Additional Instructions: Please follow-up with your primary care doctor Please take Benadryl and Pepcid for pruritus Please apply lotion to your body Med/Other Pt SpecificInfo: Prescription(s) given Scripts Famotidine (Pepcid) 20 Mg Tab 20 MG PO BID Y for ALLERGIC REACTION, #20 TAB 0 Refills Prov: Fernanda Gold DO 01/16/17 Diphenhydramine (Diphenhydramine) 25 Mg Cap 25 MG PO Q6H Y for ALLERGIES, #20 CAP 0 Refills Prov: Fernanda Gold DO 01/16/17 Disposition: 01 DISCHARGE HOME Condition: Stable Fernanda Gold DO Jan 16, 2017 18:42
[2017-01-16] MEDS ORDERED: FAMOTIDINE 20 MG TAB PO ONE (18:45)
[2017-01-16] MEDS ORDERED: diphenhydrAMINE HCL 50 MG CAP PO ONE (18:45)
[2017-01-16] MEDS ORDERED: DIPH25CA PO (18:50)
[2017-01-16] MEDS ORDERED: FAMO1TAB37 PO (18:51)
[2017-01-16 19:22] VITALS: BP 185/84
== END 2017-01-16 21:25 | disposition home or self-care (01) ==
LOC: NEPE 18:27
DX: L30.9 Dermatitis, unspecified (principal); L29.9 Pruritus, unspecified; E11.22 Type 2 diabetes mellitus with diabetic chronic kidney disease; I12.0 Hypertensive chronic kidney disease with stage 5 chronic kidney disease or end stage renal disease; N18.6 End stage renal disease; I11.0 Hypertensive heart disease with heart failure; I50.9 Heart failure, unspecified; I48.91 Unspecified atrial fibrillation; J44.9 Chronic obstructive pulmonary disease, unspecified
CPT/HCPCS: 99283; Q0163

== ENCOUNTER 2017-01-25 07:58 | Day surgery (SDC) | payer OTHER ==
[~2017-01-25] VITALS: Ht 152.4 cm; Wt 93.2 kg
[~2017-01-25 07:58] MED LIST changes: +DIPH25CA PO; +FAMO1TAB37 PO
[2017-01-25 09:52] VITALS: BP 221/102; PULSE 78; RESP 20; TEMP 98; O2SAT 95
[2017-01-25] MEDS ORDERED: DICL0.1S EACH EYE (10:05)
[2017-01-25] MEDS ORDERED: CALC1CAP PO (10:05)
[2017-01-25] MEDS ORDERED: FAMO1TAB37 PO (10:05)
[2017-01-25] MEDS ORDERED: DULE200A INH (10:05)
[2017-01-25] MEDS ORDERED: LISI10TA3 PO (10:05)
[2017-01-25] MEDS ORDERED: TYLE325T PO (10:05)
[2017-01-25] MEDS ORDERED: HYDR-3133 PO (10:05)
[2017-01-25] MEDS ORDERED: SODIUM CHLORIDE FLUSH PRN IV FLUSH (10:15)
[2017-01-25 10:41] LABS: BICARBONATE 24.4 MEQ/L (21.0-32.0); POTASSIUM 3.6 MEQ/L (3.5-5.1)
[2017-01-25] MEDS ORDERED: ceFAZolin 2 GM PREMIX 50 ML ONE (12:35)
[2017-01-25] MEDS ORDERED: diphenhydrAMINE HCL 50 MG/ML VIAL ONE (12:35)
[2017-01-25] MEDS ORDERED: LIDOCAINE 1%/EPINEPHrine 1:100,000 SOLN 20 ML VIAL ONE (12:37)
[2017-01-25 13:30] VITALS: BP 202/90; PULSE 92; RESP 18; TEMP 97.8; O2SAT 95
[2017-01-25 13:45] VITALS: BP 200/96; PULSE 90; RESP 18; O2SAT 95
[2017-01-25] MEDS ORDERED: SODIUM CHLORIDE 0.9% FLUSH 10 ML FLUSH IV FLUSH PRN (13:45)
[2017-01-25] MEDS ORDERED: HEPARIN SODIUM - IV 2,000 UNITS/2 ML VIAL IV FLUSH PRN (13:45)
--- NOTE | 2017-01-25 13:51 | PD.RAD ---
Post Procedure Progress Note Pre Procedure Diagnosis: (1) Hemodialysis catheter dysfunction (2) Chronic renal insufficiency Post Procedure Diagnosis: (1) Hemodialysis catheter dysfunction (2) End stage kidney disease Procedure Date: Jan 25, 2017 Supervising Radiologist: Micheal Mccoy Proceduralist/Assist: Kristine Reagan, RT(R), Triny Kirkland RT(R) Anesthesia: Local Plan of Activity Patient to Unit: [facility] Patient Condition: Good See PACS Report for procedural detail/treatment Central Venous Access Device Procedure 1 Right Internal Jugular Hemodialysis Catheter Tunneled Exchange dual lumen Romansh: 15 PICC Line Length (cm): 23 Findings: Catheter exchanged and upsized from 19 to 23 cm cuff-tip. Cerclage 2-0 Prolene suture placed at chest wall dermatotome to secure new catheter. Scheduled patient to return 01/29 to [facility] for suture removal Micheal Mccoy MD Jan 25, 2017 13:51
--- NOTE | 2017-01-25 16:19 | RADRPT ---
EXAM DATE/TIME: 01/25/2017 13:47 [facility] COMPARISON: No previous studies available for comparison. INDICATIONS : Patient with history of end-stage renal disease in need of tunnelled dialysis catheter exchange. MEDICAL HISTORY : ESRD, Diabetes, A-Fib, HTN, CVA, COPD, CHF, MRSA, Chronic anemia, GERD SURGICAL HISTORY : Dialysis catheter placement ENCOUNTER: Subsequent ACUITY: 3 weeks PAIN SCORE: 0/10 FLUORO TIME: 3.7 minutes IMAGE SERIES: 3 SEDATION: 1.) 25 mg Benadryl IV Prophylactic antibiotics were administered with appropriate pre-procedure timing. Vancomycin within 2 hours of procedure, Ancef (or alternative) within 1 hour of procedure. DEVICE: 1. 15 [place] dual lumen 23 cm Efrris II Plus catheter PROCEDURE : 1. Fluoroscopically-guided catheter exchange. 2. PermaCath placement. 3. No conscious sedation was provided at the patient's request. She received IV Benadryl only. The risks, benefits and alternatives to the procedure were explained and verbal and written consent w as obtained. The site was prepped in sterile fashion. Full sterile technique was used, including ca p, mask, sterile gloves and gown and a large sterile sheet. Hand hygiene and 2% chlorhexidine Betadi ne was utilized per protocol for cutaneous antisepsis with appropriate dry time for site. The skin a nd subcutaneous tissues were infiltrated with local anesthetic solution. Utilizing fluoroscopic guidance, the existing catheter was evaluated. The catheter tip is somewhat sh allow in the central venous system (19 cm cuff to tip). Therefore, this device was removed over a wir e and replaced with a 23 cm cuff to tip device which appear to project appropriately into the central venous system. A 2-0 Prolene cerclage was placed at the chest wall dermatotomy. Conscious sedation was performed with the prescribed dosages and duration as above in the presence of an independent trained radiology nurse to assist in the monitoring of the patient. EKG and oximetry remained stable throughout the procedure. The patient tolerated the procedure well and there were n o complications. The patient was sent to post anesthesia recovery in stable condition. CONCLUSION: 1. Uncomplicated PermaCath replacement as above. 2. Patient is scheduled to return to radiology outpatient unit on 01/29 for cerclage removal. Micheal Mccoy MD on January 25, 2017 at 16:06 Board Certified Radiologist. This report was verified electronically.
[2017-01-25] MEDS ORDERED: SODIUM CHLORIDE FLUSH BID IV FLUSH SCH (21:00)
== END 2017-01-25 14:20 | disposition home or self-care (01) ==
LOC: HROP 07:58 → HRIP 09:27 → HROP 14:20
PROVIDERS: ATTEND Internal Medicine Nephrology
DX: T82.41XA Breakdown (mechanical) of vascular dialysis catheter, initial encounter (principal); N18.6 End stage renal disease; I13.2 Hypertensive heart and chronic kidney disease with heart failure and with stage 5 chronic kidney disease, or end stage renal disease; I50.9 Heart failure, unspecified; E11.22 Type 2 diabetes mellitus with diabetic chronic kidney disease; K21.9 Gastro-esophageal reflux disease without esophagitis; I48.91 Unspecified atrial fibrillation; J44.9 Chronic obstructive pulmonary disease, unspecified; Z86.73 Personal history of transient ischemic attack (TIA), and cerebral infarction without residual deficits; Z99.2 Dependence on renal dialysis
CPT/HCPCS: 36581; 77001; 80048; C1750; C1769; J0690; J1200; J1644

== ENCOUNTER 2017-01-31 19:21 | Observation (INO) | payer OTHER ==
[~2017-01-31 19:21] MED LIST changes: +CALC1CAP PO; +DICL0.1S EACH EYE; -DIPH25CA PO; +DULE200A INH; -FAMO1TAB30 PO; -FLAR0.1S EACH EYE; +HYDR-3133 PO; +LISI10TA3 PO; -SOLU250I IV PUSH; +TYLE325T PO
[2017-01-31 19:24] VITALS: BP 189/92; PULSE 76; RESP 20; TEMP 98.2; O2SAT 98
[2017-01-31 20:51] LABS: BACTERIA, URINE RARE /hpf; BLOOD, URINE NEG (NEG); COMMENT (UR) CULTURE INDICATED; CULTURE IF INDICATED CULTURE INDICATED; GLUCOSE,URINE TRACE mg/dL (NEG); KETONE, URINE NEG (NEG); NITRITE,URINE NEG (NEG); SQUAMOUS EPITHELIAL CELL URINE 21 /hpf (0-5); URINE COLOR YELLOW (YELLW/STRAW)
[2017-01-31 20:56] VITALS: BP 220/98; PULSE 81; RESP 20; O2SAT 99
--- NOTE | 2017-01-31 21:11 | PD ---
HPI Chief Complaint: General Weakness Time Seen by Provider: 20:52 Travel History International Travel<30 days: No Contact w/Intl Traveler<30days: No Traveled to known affect area: No History of Present Illness HPI The patient is a 51-year-old [place] female who presents emergency department for generalized weakness and malfunctioning permacath for dialysis. The patient has a history of end-stage renal disease on hemodialysis, states she is followed by Dr. Kemp, and the last attempted dialysis on Sunday, Sunday, and Sunday. Patient states her permacath did not work and she was then able to get dialysis. The patient states she lives in [place], [place], is followed by her primary physician in [place], [place]. The patient states he recently changed her permacath, her fourth one since September, however, is been nonfunctioning. The patient's last actual dialysis was a week ago Sunday , approximately 10 days ago. She does complain of generalized malaise and occasional headaches. She denies any outright shortness of breath. She does make urine, urinates approximately twice daily. She denies any nausea, vomiting , diarrhea, or abdominal pain. Symptoms are mild to moderate, possibly exacerbated by nonfunctioning permacath, and there are no current alleviating factors. PFSH Past Medical History Hx Anticoagulant Therapy: Yes Arthritis: Yes Asthma: No Autoimmune Disease: No Anxiety: No Heart Rhythm Problems: Yes (A-Fib) Cancer: No Cardiovascular Problems: Yes High Cholesterol: Yes Chemotherapy: No Chest Pain: No Congestive Heart Failure: Yes (recently noted with diastolic dysfunction) COPD: Yes Cerebrovascular Accident: Yes Diabetes: Yes Patient Takes Glucophage: No Dialysis: Yes (Sun,,sat RT chest vascath) Diminished Hearing: No Endocrine: Yes Gastrointestinal Disorders: Yes (HX of previous GI bleed) GERD: Yes Genitourinary: No Headaches: No Hiatal Hernia: No Heparin Induced Thrombocytopen: No Hypertension: Yes Immune Disorder: No Implanted Vascular Access Dvce: Yes Kidney Stones: No Musculoskeletal: No Neurologic: Yes Psychiatric: No Reproductive: No Respiratory: Yes (previous PE) Immunizations Current: Yes Migraines: No Radiation Therapy: No Renal Failure: Yes (chronic renal insufficiency) Seizures: No Sickle Cell Disease: No Sleep Apnea: Yes (Non-compliant with CPAP) Thyroid Disease: No Ulcer: No Tetanus Vaccination: Unknown Influenza Vaccination: Yes ?: Not Past Surgical History Surgical History: No Previous Surgery Abdominal Surgery: No AICD: No Arteriovenous Shunt: No Cardiac Surgery: No Ear Surgery: No Endocrine Surgery: No Eye Surgery: Yes (cataracts, AUGUST 10) Genitourinary Surgery: No Gynecologic Surgery: No Hysterectomy: No Insulin Pump: No Joint Replacement: No Neurologic Surgery: No Oral Surgery: No Pacemaker: No Thoracic Surgery: No Other Surgery: Yes (recent right eye scraping) Social History Alcohol Use: No Tobacco Use: No Substance Use: No Allergies-Medications (Allergen,Severity, Reaction): Coded Allergies: fentanyl (Verified Allergy, Unknown, 01/25/17) morphine (Unverified Allergy, Unknown, 01/25/17) vancomycin (Verified Adverse Reaction, Severe, Rash, 01/25/17) Reported Meds & Prescriptions Reported Meds & Active Scripts Active Bedside Commode (Device) 1 Mis Mis Ea .ROUTE DIRECTED Novolog Inj (Insulin Aspart) 1,000 Unit/10 Ml Vial 1-9 Units SQ ACHS 30 Days Max dose at bedtime:( )units; sugars less than 70,(0)units; sugars 150-199,(1) unit; sugars 200-249,(3) units; sugars 250-299,(5) units; sugars 300-349,(7) units; sugars greater than 349,(9) units Catapres (Clonidine) 0.1 Mg Tab 0.1 Mg PO Q8HR Ipratropium Neb (Ipratropium [place]) 0.5 Mg/2.5 Ml Amp 0.5 Mg NEB Q4HR NEB PRN 30 Days Vitamin D3 (Cholecalciferol) 5,000 Unit Cap 5,000 Units PO DAILY Norvasc (Amlodipine Besylate) 5 Mg Tab 5 Mg PO DAILY Metoprolol Tartrate 25 Mg Tab 50 Mg PO DAILY Reported Tylenol (Acetaminophen) 325 Mg Tab 1,000 Mg PO Q8HR PRN Lisinopril 10 Mg Tab 10 Mg PO DAILY Hydroxyzine HCl 25 Mg Tab 25 Mg PO QID PRN Pepcid (Famotidine) 20 Mg Tab 20 Mg PO BID Dulera 120 Act Inh (Mometasone-Formoterol 120 Act Inh) 200-5 Mcg/Act Inh 2 Puff INH BID Diclofenac Opth Drops 0.1% Soln 1 Drop EACH EYE BID Calcium Acetate (Phosphate Binder) 667 Mg Cap 667 Mg PO TID Dorzolamide Opth Drops (Dorzolamide HCl) 2% Soln 1 Drop EACH EYE BID Hydralazine (Hydralazine HCl) 100 Mg Tab 100 Mg PO TID Take with meals Claritin (Loratadine) 10 Mg Cap 10 Mg PO DAILY Lactobacillus Acidophilus 1 Billion Cell Tab 1 Tab PO TIDAC Singulair (Montelukast Sodium) 10 Mg Tab 10 Mg PO HS Pravastatin 40 Mg Tab 40 Mg PO DAILY Polyethylene Glycol 3350 Powder (Polyethylene Glycol) 17 Gram Pow 17 Gm PO DAILY Review of Systems Except as stated in HPI: all other systems reviewed are Neg General / Constitutional: No: Fever Cardiovascular: No: Chest Pain or Discomfort Respiratory: No: Shortness of Breath Gastrointestinal: No: Nausea, Vomiting, Abdominal Pain Musculoskeletal: Positive: Weakness, No: Cramping, Edema Neurologic: No: Dizziness Physical Exam Narrative GENERAL: Awake, alert, pleasant 51-year-old female who appears older than her stated age is in no acute respiratory distress. SKIN: Focused skin assessment warm/dry. HEAD: Atraumatic. Normocephalic. EYES: No injection or drainage. Of the left eye. ENT: No nasal bleeding or discharge. Mucous membranes pink and moist. NECK: Trachea midline. No JVD. CARDIOVASCULAR: Regular rate and rhythm. No murmur appreciated. Permacath in place right chest wall. RESPIRATORY: No accessory muscle use. Slightly diminished breath sounds in the bases bilaterally. GASTROINTESTINAL: Abdomen soft, obese, no rebound tenderness. MUSCULOSKELETAL: No obvious deformities. No clubbing. No cyanosis. No edema. NEUROLOGICAL: Awake and alert. No obvious cranial nerve deficits. Motor grossly within normal limits. Normal speech. Nonfocal. PSYCHIATRIC: Appropriate mood and affect; insight and judgment normal. Data Data Last Documented VS Vital Signs Date Time Temp Pulse Resp B/P (MAP) Pulse Ox O2 Delivery O2 Flow Rate FiO2 01/31/17 20:56 81 20 220/98 (138) 99 Room Air 01/31/17 19:24 98.2 Orders Orders Complete Blood Count With Diff (01/31/17 19:29) Comprehensive Metabolic Panel (01/31/17 19:29) B-Type Natriuretic Peptide (01/31/17 19:29) Act Partial Throm Time (Ptt) (01/31/17 19:29) Prothrombin Time / Inr (Pt) (01/31/17 19:29) Magnesium (Mg) (01/31/17 19:29) Urinalysis - C+S If Indicated (01/31/17 19:29) Chest, Pa & Lat (01/31/17 19:29) Urine Culture (01/31/17 20:07) Admit Order (Ed Use Only) (01/31/17 23:05) Labs Laboratory Tests Test 01/31/17 20:07 01/31/17 21:13 Urine Color YELLOW Urine Turbidity HAZY Urine pH 6.0 Urine Specific [place] 1.013 Urine Protein 300 mg/dL Urine Glucose (UA) TRACE mg/dL Urine Ketones NEG mg/dL Urine Occult Blood NEG Urine Nitrite NEG Urine Bilirubin NEG Urine Urobilinogen LESS THAN 2.0 MG/DL Urine Leukocyte Esterase SMALL Urine RBC 10 /hpf Urine WBC 10 /hpf Urine Squamous Epithelial Cells 21 /hpf Urine Bacteria RARE /hpf Urine Yeast (Budding) FEW Microscopic Urinalysis Comment CULTURE INDICATED White Blood Count 5.3 TH/MM3 Red Blood Count 2.93 MIL/MM3 Hemoglobin 9.4 GM/DL Hematocrit 28.5 % Mean Corpuscular Volume 97.3 FL Mean Corpuscular Hemoglobin 32.2 PG Mean Corpuscular Hemoglobin Concent 33.1 % Red Cell Distribution Width 15.2 % Platelet Count 236 TH/MM3 Mean Platelet Volume 7.6 FL Neutrophils (%) (Auto) 58.0 % Lymphocytes (%) (Auto) 28.2 % Monocytes (%) (Auto) 9.4 % Eosinophils (%) (Auto) 3.7 % Basophils (%) (Auto) 0.7 % Neutrophils # (Auto) 3.1 TH/MM3 Lymphocytes # (Auto) 1.5 TH/MM3 Monocytes # (Auto) 0.5 TH/MM3 Eosinophils # (Auto) 0.2 TH/MM3 Basophils # (Auto) 0.0 TH/MM3 CBC Comment DIFF FINAL Differential Comment Prothrombin Time 10.8 SEC Prothromb Time International Ratio 1.1 RATIO Activated Partial Thromboplast Time 31.0 SEC Blood Urea Nitrogen 50 MG/DL Creatinine 4.39 MG/DL Random Glucose 273 MG/DL Total Protein 8.9 GM/DL Albumin 3.1 GM/DL Calcium Level 8.9 MG/DL Magnesium Level 1.8 MG/DL Alkaline Phosphatase 111 U/L Aspartate Amino Transf (AST/SGOT) 20 U/L Alanine Aminotransferase (ALT/SGPT) 13 U/L Total Bilirubin 0.2 MG/DL Sodium Level 139 MEQ/L Potassium Level 3.8 MEQ/L Chloride Level 106 MEQ/L Carbon Dioxide Level 24.0 MEQ/L Anion Gap 9 MEQ/L Estimat Glomerular Filtration Rate 13 ML/MIN B-Type Natriuretic Peptide 111 PG/ML MDM Medical Decision Making Medical Screen Exam Complete: Yes Emergency Medical Condition: Yes Medical Record Reviewed: Yes Interpretation(s) Laboratory Tests Test 01/31/17 20:07 01/31/17 21:13 Urine Color YELLOW Urine Turbidity HAZY Urine pH 6.0 Urine Specific [place] 1.013 Urine Protein 300 mg/dL Urine Glucose (UA) TRACE mg/dL Urine Ketones NEG mg/dL Urine Occult Blood NEG Urine Nitrite NEG Urine Bilirubin NEG Urine Urobilinogen LESS THAN 2.0 MG/DL Urine Leukocyte Esterase SMALL Urine RBC 10 /hpf Urine WBC 10 /hpf Urine Squamous Epithelial Cells 21 /hpf Urine Bacteria RARE /hpf Urine Yeast (Budding) FEW Microscopic Urinalysis Comment CULTURE INDICATED White Blood Count 5.3 TH/MM3 Red Blood Count 2.93 MIL/MM3 Hemoglobin 9.4 GM/DL Hematocrit 28.5 % Mean Corpuscular Volume 97.3 FL Mean Corpuscular Hemoglobin 32.2 PG Mean Corpuscular Hemoglobin Concent 33.1 % Red Cell Distribution Width 15.2 % Platelet Count 236 TH/MM3 Mean Platelet Volume 7.6 FL Neutrophils (%) (Auto) 58.0 % Lymphocytes (%) (Auto) 28.2 % Monocytes (%) (Auto) 9.4 % Eosinophils (%) (Auto) 3.7 % Basophils (%) (Auto) 0.7 % Neutrophils # (Auto) 3.1 TH/MM3 Lymphocytes # (Auto) 1.5 TH/MM3 Monocytes # (Auto) 0.5 TH/MM3 Eosinophils # (Auto) 0.2 TH/MM3 Basophils # (Auto) 0.0 TH/MM3 CBC Comment DIFF FINAL Differential Comment Prothrombin Time 10.8 SEC Prothromb Time International Ratio 1.1 RATIO Activated Partial Thromboplast Time 31.0 SEC Blood Urea Nitrogen 50 MG/DL Creatinine 4.39 MG/DL Random Glucose 273 MG/DL Total Protein 8.9 GM/DL Albumin 3.1 GM/DL Calcium Level 8.9 MG/DL Magnesium Level 1.8 MG/DL Alkaline Phosphatase 111 U/L Aspartate Amino Transf (AST/SGOT) 20 U/L Alanine Aminotransferase (ALT/SGPT) 13 U/L Total Bilirubin 0.2 MG/DL Sodium Level 139 MEQ/L Potassium Level 3.8 MEQ/L Chloride Level 106 MEQ/L Carbon Dioxide Level 24.0 MEQ/L Anion Gap 9 MEQ/L Estimat Glomerular Filtration Rate 13 ML/MIN B-Type Natriuretic Peptide 111 PG/ML Last Impressions Chest X-Ray 01/31/171928 Signed Impressions: Service Date/Time: Tuesday, January 31, 2017 20:14 - CONCLUSION: The lungs are clear. Wilner Bashir MD Differential Diagnosis Differential diagnosis includes malfunctioning permacath, ESRD on HD, hyperkalemia, pulmonary edema, renal failure. Narrative Course IV was established, labs are drawn and sent, and the patient was placed on cardiac telemetry monitoring and continuous pulse oximetry monitoring. Chest x- ray was obtained. Electrolytes were sent to lab. Chest x-rays unremarkable. The patient's creatinine is elevated, appears to be a baseline. Electrolytes are unremarkable. The patient is already been seen several times for permacath replacement, was recently seen in interventional radiology and had a permacath change, however, states there is still unable to perform dialysis through the catheter. The patient does not drive, lives with her 14-year-old daughter in [place], [place], has no immediate mean to transportation to and from the hospital. Therefore, patient will be 23 hour observation to the hospital, may benefit from interventional radiology evaluation for evaluation for her dialysis catheter. Therefore, the on-call medical service was paged for 23 hour observation. Physician Communication Physician Communication The on-call medical service was paged for 23 hour observation. I discussed the patient with Dr. Unger who agrees with 23 hour observation. Diagnosis Primary Impression: Hemodialysis catheter dysfunction Qualified Codes: T82.41XA - Breakdown (mechanical) of vascular dialysis catheter, initial encounter Additional Impression: End stage kidney disease Admitting Information Admitting Physician Requests: Observation Condition: Stable Akbar Wray MD Jan 31, 2017 21:11
--- NOTE | 2017-01-31 21:17 | RADRPT ---
EXAM DATE/TIME: 01/31/2017 20:14 [facility] COMPARISON: No previous studies available for comparison. INDICATIONS : Patient complains shortness of breath as well as vas cath not working when patient went for dialysis this week. MEDICAL HISTORY : Renal failure, chronic. SURGICAL HISTORY : Right side Tenckhoff. ENCOUNTER: Initial ACUITY: 1 day PAIN SCORE: Non-responsive. LOCATION: chest FINDINGS: PA and lateral views of the chest demonstrate the lungs to be symmetrically aerated without evidence of mass, infiltrate or effusion. The cardiomediastinal contours are unremarkable. Osseous structure s are intact. The double lumen central line catheter tip projects over the distal superior vena cava . No evidence of pneumothorax. CONCLUSION: The lungs are clear. Wilner Bashir MD on January 31, 2017 at 21:14 Board Certified Radiologist. This report was verified electronically.
[2017-01-31 21:20] LABS: AUTOMATED NEUTROPHIL # 3.1 TH/MM3 (1.8-7.7); BASOPHIL % 0.7 % (0.0-2.0); EOSINOPHIL # 0.2 TH/MM3 (0-0.4); EOSINOPHIL % 3.7 % (0.0-4.0); HEMATOCRIT 28.5 % (35.0-46.0); HEMO FLAGS DIFF FINAL; LYMPH % 28.2 % (9.0-44.0); LYMPHOCYTE # 1.5 TH/MM3 (1.0-4.8); MEAN CELL VOLUME 97.3 FL (80.0-100.0); MEAN CORPUSCULAR HEMOGLOBIN 32.2 PG (27.0-34.0); MEAN CORPUSCULAR HGB CONC 33.1 % (32.0-36.0); MONO % 9.4 % (0.0-8.0); PLATELET COUNT 236 TH/MM3 (150-450); RED BLOOD COUNT 2.93 MIL/MM3 (4.00-5.30); RED CELL DISTRIBUTION WIDTH 15.2 % (11.6-17.2); WHITE BLOOD COUNT 5.3 TH/MM3 (4.0-11.0)
[2017-01-31 21:32] LABS: INTERNATIONAL NORMALIZED RATIO 1.1 RATIO; PROTHROMBIN TIME - PATIENT 10.8 SEC (9.8-11.6)
[2017-01-31 21:58] LABS: ANION GAP 9 MEQ/L (5-15); AST (GOT) 20 U/L (15-37); BLOOD UREA NITROGEN 50 MG/DL (7-18); CHLORIDE 106 MEQ/L (98-107); GLOMERULAR FILTRATION RATE 13 ML/MIN (>89); MAGNESIUM 1.8 MG/DL (1.5-2.5); POTASSIUM 3.8 MEQ/L (3.5-5.1); SODIUM (NA) 139 MEQ/L (136-145)
[2017-01-31 21:59] LABS: ALT (GPT) 13 U/L (10-53)
[2017-01-31 22:02] LABS: ALKALINE PHOSPHATASE 111 U/L (45-117); TOTAL BILIRUBIN ADULT 0.2 MG/DL (0.2-1.0)
[2017-01-31] MEDS ORDERED: ONDANSETRON HCL 4 MG/2 ML VIAL IVP PRN (23:15)
[2017-01-31] MEDS ORDERED: BISACODYL 10 MG SUPP RECTAL PRN (23:15)
[2017-01-31] MEDS ORDERED: cloNIDine HCL 0.1 MG TAB PO PRN (23:15)
[2017-01-31] MEDS ORDERED: SENNOSIDES 8.6 MG TAB PO PRN (23:15)
[2017-01-31] MEDS ORDERED: NALOXONE HCL 0.4 MG/ML AMP IV PUSH PRN (23:15)
[2017-01-31] MEDS ORDERED: ACETAMINOPHEN 325 MG TAB PO PRN (23:15)
[2017-01-31] MEDS ORDERED: SODIUM CHLORIDE 0.9% FLUSH 10 ML FLUSH IV FLUSH PRN (23:15)
[2017-01-31] MEDS ORDERED: RESP: ALBUTEROL 2.5 MG/IPRATROPIUM 0.5 MG NEB (PRN) NEB (23:30)
[2017-01-31] MEDS ORDERED: GLUCAGON 1 MG/ML VIAL OTHER PRN (23:30)
[2017-01-31] MEDS ORDERED: DEXTROSE 50% IN WATER 50 ML VIAL(D50) IV PUSH PRN (23:30)
[2017-01-31 23:35] VITALS: BP 176/80
[2017-02-01] VITALS (8 sets, daily range): BP systolic 164–208; BP diastolic 74–87; PULSE 69–90; RESP 18–20; TEMP 97.9–98.8; O2SAT 94–96
[2017-02-01] MEDS: HEPARIN SODIUM - SQ 10,000 UNITS/ML VIAL SQ SCH ×3 (00:37→15:15)
--- NOTE | 2017-02-01 06:35 | HHI.HP ---
[facility] Unknown Admission Diagnosis permacath malfunction, ESRD on HD Diagnoses: Travel History International Travel<30 Days: No Contact w/Intl Traveler <30 Da: No Traveled to Known Affected Are: No History of Present Illness 51-year-old female with a past medical history significant for end-stage renal disease on dialysis (followed by Dr. Kemp), insulin-dependent diabetes mellitus, hypertension, hyperlipidemia who is legally blind presents to the emergency department for generalized weakness and malfunctioning PermCath for dialysis. Patient was last dialyzed a week ago Sunday. She has been to dialysis however they have not been able to dialyze her secondary to PermCath dysfunction. Potassium 3.8. Creatinine 4.39. Patient complains of bilateral foot swelling. Review of Systems Denies fever or chills Denies blurry vision, otorrhea, rhinorrhea Denies sore throat and cough No chest pain, palpitations, shortness of breath No abdominal pain Denies constipation/diarrhea/nausea/vomiting Denies muscle pain/positive generalized weakness No rashes Past Family Social History Past Medical History Insulin-dependent diabetes mellitus Hypertension Hyperlipidemia ALEXANDRA Neuropathy Degenerative disc disease Legally blind Past Surgical History PermCath placement 4 Reported Medications Reported Meds & Active Scripts Active Bedside Commode (Device) 1 Mis Mis Ea .ROUTE DIRECTED Novolog Inj (Insulin Aspart) 1,000 Unit/10 Ml Vial 1-9 Units SQ ACHS 30 Days Max dose at bedtime:( )units; sugars less than 70,(0)units; sugars 150-199,(1) unit; sugars 200-249,(3) units; sugars 250-299,(5) units; sugars 300-349,(7) units; sugars greater than 349,(9) units Catapres (Clonidine) 0.1 Mg Tab 0.1 Mg PO Q8HR Ipratropium Neb (Ipratropium [place]) 0.5 Mg/2.5 Ml Amp 0.5 Mg NEB Q4HR NEB PRN 30 Days Vitamin D3 (Cholecalciferol) 5,000 Unit Cap 5,000 Units PO DAILY Norvasc (Amlodipine Besylate) 5 Mg Tab 5 Mg PO DAILY Metoprolol Tartrate 25 Mg Tab 50 Mg PO DAILY Reported Tylenol (Acetaminophen) 325 Mg Tab 1,000 Mg PO Q8HR PRN Lisinopril 10 Mg Tab 10 Mg PO DAILY Hydroxyzine HCl 25 Mg Tab 25 Mg PO QID PRN Pepcid (Famotidine) 20 Mg Tab 20 Mg PO BID Dulera 120 Act Inh (Mometasone-Formoterol 120 Act Inh) 200-5 Mcg/Act Inh 2 Puff INH BID Diclofenac Opth Drops 0.1% Soln 1 Drop EACH EYE BID Calcium Acetate (Phosphate Binder) 667 Mg Cap 667 Mg PO TID Dorzolamide Opth Drops (Dorzolamide HCl) 2% Soln 1 Drop EACH EYE BID Hydralazine (Hydralazine HCl) 100 Mg Tab 100 Mg PO TID Take with meals Claritin (Loratadine) 10 Mg Cap 10 Mg PO DAILY Lactobacillus Acidophilus 1 Billion Cell Tab 1 Tab PO TIDAC Singulair (Montelukast Sodium) 10 Mg Tab 10 Mg PO HS Pravastatin 40 Mg Tab 40 Mg PO DAILY Polyethylene Glycol 3350 Powder (Polyethylene Glycol) 17 Gram Pow 17 Gm PO DAILY Allergies: Coded Allergies: fentanyl (Verified Allergy, Unknown, 01/25/17) morphine (Unverified Allergy, Unknown, 01/25/17) vancomycin (Verified Adverse Reaction, Severe, Rash, 01/25/17) Family History Father with diabetes mellitus. Both parents with hypertension. Social History Denies alcohol, tobacco and illicit drugs. Physical Exam Vital Signs Vital Signs Date Time Temp Pulse Resp B/P (MAP) Pulse Ox O2 Delivery O2 Flow Rate FiO2 02/01/17 05:55 97.9 76 20 176/77 (110) 95 02/01/17 05:11 02/01/17 04:45 76 18 164/74 (104) 96 Room Air 02/01/17 00:38 78 20 180/80 (113) 96 Room Air 01/31/17 23:35 176/80 (112) 01/31/17 20:56 81 20 220/98 (138) 99 Room Air 01/31/17 20:56 96 Room Air 01/31/17 19:24 98.2 76 20 189/92 (124) 98 Room Air Physical Exam GENERAL: female lying in bed SKIN: No rashes, ecchymoses or lesions. Cool and dry. HEAD: Atraumatic. Normocephalic. No temporal or scalp tenderness. EYES: Pupils equal round and reactive. Extraocular motions intact. No scleral icterus. No injection or drainage. ENT: Nose without bleeding, purulent drainage or septal hematoma. Throat without erythema, tonsillar hypertrophy or exudate. Uvula midline. Airway patent. NECK: Trachea midline. No JVD or lymphadenopathy. Supple, nontender, no meningeal signs. CARDIOVASCULAR: Regular rate and rhythm without murmurs, gallops, or rubs. PermCath in place in right chest wall. RESPIRATORY: Clear to auscultation. Breath sounds equal bilaterally. No wheezes , rales, or rhonchi. GASTROINTESTINAL: Abdomen soft, non-tender, nondistended. No hepato-splenomegaly , or palpable masses. No guarding. MUSCULOSKELETAL: Bilateral edema to the ankles. No calf tenderness. NEUROLOGICAL: Awake and alert. Cranial nerves II through XII intact. Motor and sensory grossly within normal limits. Normal speech. Laboratory Laboratory Tests Test 01/31/17 20:07 01/31/17 21:13 Urine Color YELLOW Urine Turbidity HAZY Urine pH 6.0 Urine Specific [place] 1.013 Urine Protein 300 Urine Glucose (UA) TRACE Urine Ketones NEG Urine Occult Blood NEG Urine Nitrite NEG Urine Bilirubin NEG Urine Urobilinogen LESS THAN 2.0 Urine Leukocyte Esterase SMALL Urine RBC 10 Urine WBC 10 Urine Squamous Epithelial Cells 21 Urine Bacteria RARE Urine Yeast (Budding) FEW Microscopic Urinalysis Comment CULTURE INDICATED White Blood Count 5.3 Red Blood Count 2.93 Hemoglobin 9.4 Hematocrit 28.5 Mean Corpuscular Volume 97.3 Mean Corpuscular Hemoglobin 32.2 Mean Corpuscular Hemoglobin Concent 33.1 Red Cell Distribution Width 15.2 Platelet Count 236 Mean Platelet Volume 7.6 Neutrophils (%) (Auto) 58.0 Lymphocytes (%) (Auto) 28.2 Monocytes (%) (Auto) 9.4 Eosinophils (%) (Auto) 3.7 Basophils (%) (Auto) 0.7 Neutrophils # (Auto) 3.1 Lymphocytes # (Auto) 1.5 Monocytes # (Auto) 0.5 Eosinophils # (Auto) 0.2 Basophils # (Auto) 0.0 CBC Comment DIFF FINAL Differential Comment Prothrombin Time 10.8 Prothromb Time International Ratio 1.1 Activated Partial Thromboplast Time 31.0 Blood Urea Nitrogen 50 Creatinine 4.39 Random Glucose 273 Total Protein 8.9 Albumin 3.1 Calcium Level 8.9 Magnesium Level 1.8 Alkaline Phosphatase 111 Aspartate Amino Transf (AST/SGOT) 20 Alanine Aminotransferase (ALT/SGPT) 13 Total Bilirubin 0.2 Sodium Level 139 Potassium Level 3.8 Chloride Level 106 Carbon Dioxide Level 24.0 Anion Gap 9 Estimat Glomerular Filtration Rate 13 B-Type Natriuretic Peptide 111 Date/Time Source Procedure Growth Status 01/31/17 20:07 Urine Clean Catch Urine Culture Pending Received Result Diagram: 01/31/17211201/31/172112 Caprini VTE Risk Assessment Caprini VTE Risk Assessment: No/Low Risk (score <= 1) Caprini Risk Assessment Model Point Value = 1 Point Value = 2 Point Value = 3 Point Value = 5 Age 41-60 Minor surgery BMI > 25 kg/m2 Swollen legs Varicose veins or History of unexplained or recurrent spontaneous Oral contraceptives or hormone replacement Sepsis (< 1 month) Serious lung disease, including pneumonia (< 1 month) Abnormal pulmonary function Acute myocardial infarction Congestive heart failure (< 1 month) History of inflammatory bowel disease Medical patient at bed rest Age 61-74 Arthroscopic surgery Major open surgery (> 45 min) Laparoscopic surgery (> 45 min) Malignancy Confined to bed (> 72 hours) Immobilizing plaster cast Central venous access Age >= 75 History of VTE Family history of VTE Factor V Leiden Prothrombin [id number] Lupus anticoagulant Anticardiolipin antibodies Elevated serum homocysteine Heparin-induced thrombocytopenia Other congenital or acquired thrombophilia Stroke (< 1 month) Elective arthroplasty Hip, pelvis, or leg fracture Acute spinal cord injury (< 1 month) Prophylaxis Regimen Total Risk Factor Score Risk Level Prophylaxis Regimen 0-1 Low Early ambulation 2 Moderate Order ONE of the following: *Sequential Compression Device (SCD) *Heparin 5000 units SQ BID 3-4 Higher Order ONE of the following medications: *Heparin 5000 units SQ TID *Enoxaparin/Lovenox 40 mg SQ daily (WT < 150 kg, CrCl > 30 mL/min) *Enoxaparin/Lovenox 30 mg SQ daily (WT < 150 kg, CrCl > 10-29 mL/min) *Enoxaparin/Lovenox 30 mg SQ BID (WT < 150 kg, CrCl > 30 mL/min) AND/OR *Sequential Compression Device (SCD) 5 or more Highest Order ONE of the following medications: *Heparin 5000 units SQ TID (Preferred with Epidurals) *Enoxaparin/Lovenox 40 mg SQ daily (WT < 150 kg, CrCl > 30 mL/min) *Enoxaparin/Lovenox 30 mg SQ daily (WT < 150 kg, CrCl > 10-29 mL/min) *Enoxaparin/Lovenox 30 mg SQ BID (WT < 150 kg, CrCl > 30 mL/min) AND *Sequential Compression Device (SCD) Assessment and Plan Assessment and Plan Assessment/plan: 1. PermCath dysfunction Interventional radiology consulted for evaluation of her catheter 2. ESRD on dialysis Nephrology consulted, appreciate recommendations 3. Insulin-dependent diabetes mellitus Resume home medications once reconciliation complete SSI Monitor blood glucose 4. Hypertension/hyperlipidemia Continue home medications FEN NPO Electrolytes: monitor and replete Fernanda Gallagher MD Feb 01, 2017 06:35
[2017-02-01 07:49] LABS: AUTOMATED NEUTROPHIL # 2.8 TH/MM3 (1.8-7.7); BASOPHIL # 0.1 TH/MM3 (0-0.2); BASOPHIL % 1.1 % (0.0-2.0); EOSINOPHIL # 0.2 TH/MM3 (0-0.4); EOSINOPHIL % 3.6 % (0.0-4.0); HEMATOCRIT 26.5 % (35.0-46.0); HEMO FLAGS DIFF FINAL; LYMPH % 33.5 % (9.0-44.0); LYMPHOCYTE # 1.9 TH/MM3 (1.0-4.8); MEAN CORPUSCULAR HEMOGLOBIN 32.3 PG (27.0-34.0); MEAN CORPUSCULAR HGB CONC 33.2 % (32.0-36.0); MONO % 11.2 % (0.0-8.0); NEUT % 50.6 % (16.0-70.0); PLATELET COUNT 203 TH/MM3 (150-450); RED BLOOD COUNT 2.73 MIL/MM3 (4.00-5.30); RED CELL DISTRIBUTION WIDTH 15.2 % (11.6-17.2); WHITE BLOOD COUNT 5.6 TH/MM3 (4.0-11.0)
[2017-02-01] MEDS: INSULIN ASPART SUPPLEMENTAL SCALE SQ SCH ×3 (08:00→17:00)
[2017-02-01] MEDS ORDERED: ALTEPLASE RECOMBINANT 2 MG VIAL INTRACATH SCH (09:00)
[2017-02-01] MEDS ORDERED: SODIUM CHLORIDE 0.9% FLUSH 10 ML FLUSH IV FLUSH SCH (09:00)
[2017-02-01] MEDS ORDERED: PNEUMOCOCCAL POLYVALENT INJ 25 MCG/0.5 ML SYR IM ONE (09:00)
[2017-02-01] MEDS ORDERED: SODIUM CHLOR 0.9% 1000 ML INJ 1,000 ML OTHER PRN ×2 (11:13)
[2017-02-01] MEDS ORDERED: SODIUM CHLOR 0.9% 1000 ML INJ 1,000 ML IV PRN (11:13)
[2017-02-01] MEDS ORDERED: HEPARIN SODIUM - IV 10,000 UNITS/10 ML VIAL IV FLUSH PRN (11:15)
[2017-02-01] MEDS ORDERED: HEPARIN SODIUM - IV 10,000 UNITS/10 ML VIAL PRN (11:15)
[2017-02-01] MEDS ORDERED: SODIUM CHLORIDE 0.9% FLUSH 10 ML FLUSH IV FLUSH PRN ×2 (11:15→16:15)
[2017-02-01] MEDS ORDERED: ONDANSETRON HCL 4 MG/2 ML VIAL IV PUSH PRN (11:15)
[2017-02-01] MEDS ORDERED: cloNIDine HCL 0.1 MG TAB PO PRN (11:15)
[2017-02-01] MEDS ORDERED: ACETAMINOPHEN 325 MG TAB PO PRN (11:15)
[2017-02-01] MEDS ORDERED: NITROGLYCERIN 0.4 MG SL 25 TABS/BTL SL PRN (11:15)
[2017-02-01] MEDS ORDERED: ALBUMIN 25% INJ 100 ML IV PRN (11:15)
[2017-02-01] MEDS ORDERED: GENTAMICIN SULFATE (DIALYSIS USE ONLY) 20 MG/2 ML VIAL OTHER PRN (11:15)
[2017-02-01] MEDS ORDERED: EPOETIN ALFA 10,000 UNITS/ML VIAL IV PUSH PRN (11:15)
[2017-02-01] MEDS ORDERED: diphenhydrAMINE HCL 25 MG CAP PO PRN (11:15)
[2017-02-01] MEDS ORDERED: GELATIN 12 MM/7 MM FOAM TOP PRN (11:15)
[2017-02-01] MEDS ORDERED: MANNITOL 12.5 GM/50 ML VIAL IV PRN (11:15)
[2017-02-01] MEDS ORDERED: amLODIPine BESYLATE 5 MG TAB PO SCH (12:00)
[2017-02-01] MEDS ORDERED: MIDAZOLAM HCL 2 MG/2 ML VIAL ONE (15:03)
[2017-02-01] MEDS ORDERED: ceFAZolin 2 GM PREMIX 50 ML ONE (15:07)
[2017-02-01] MEDS ORDERED: LIDOCAINE 1%/EPINEPHrine 1:100,000 SOLN 20 ML VIAL ONE (15:10)
--- NOTE | 2017-02-01 16:14 | PD.RAD ---
Post Procedure Progress Note Pre Procedure Diagnosis: (1) End stage kidney disease (2) Hemodialysis catheter dysfunction Post Procedure Diagnosis: (1) End stage kidney disease (2) Hemodialysis catheter dysfunction Procedure Date: Feb 01, 2017 Supervising Radiologist: Micheal Mccoy Proceduralist/Assist: Oscar Hernandes, RT(R), Joselo Harris RT(R), Triny Kirkland, RT(R) Anesthesia: Local, Conscious Sedation Plan of Activity Patient to Unit: ROPU Patient Condition: Good See PACS Report for procedural detail/treatment Central Venous Access Device Procedure 1 Right Subclavian Hemodialysis Catheter Tunneled Placement dual lumen Salvadorean: 15 PICC Line Length (cm): 23 Procedure 2 Right Internal Jugular Hemodialysis Catheter Tunneled Removal Micheal Mccoy MD Feb 01, 2017 16:14
[2017-02-01] MEDS ORDERED: HEPARIN SODIUM - IV 2,000 UNITS/2 ML VIAL IV FLUSH PRN (16:15)
--- NOTE | 2017-02-01 17:22 | HHI.PR ---
Subjective Remarks Follow up on patient with ESRD on HD, PermCath dysfunction. Patient seen and examined. She is s/p HD earlier today with 5L removed. Patient doing well. She has no complaints. Objective Vitals Vital Signs Date Time Temp Pulse Resp B/P (MAP) Pulse Ox O2 Delivery O2 Flow Rate FiO2 02/01/17 16:30 69 20 208/82 (124) 95 02/01/17 16:10 98.8 90 18 175/79 (111) 94 02/01/17 08:19 98.7 76 20 189/86 (120) 96 02/01/17 08:08 77 02/01/17 05:55 97.9 76 20 176/77 (110) 95 02/01/17 05:11 02/01/17 04:45 76 18 164/74 (104) 96 Room Air 02/01/17 00:38 78 20 180/80 (113) 96 Room Air 01/31/17 23:35 176/80 (112) 01/31/17 20:56 81 20 220/98 (138) 99 Room Air 01/31/17 20:56 96 Room Air 01/31/17 19:24 98.2 76 20 189/92 (124) 98 Room Air I/O 01/31/17 01/31/17 01/31/17 02/01/17 02/01/17 02/01/17 07:00 15:00 23:00 07:00 15:00 23:00 Intake Total 150 ml Output Total 5000 ml Balance 150 ml -5000 ml Intake Oral 150 ml Output Hemodialysis 5000 ml Result Diagram: 02/01/1771101/31/172112 Imaging Last Impressions Chest X-Ray 01/31/171928 Signed Impressions: Service Date/Time: Tuesday, January 31, 2017 20:14 - CONCLUSION: The lungs are clear. Wilner Bashir MD Objective Remarks GENERAL: WDWN female lying in bed, INAD. Awake and alert. SKIN: Cool and dry. PermCath site C/D/I. HEAD: Atraumatic. Normocephalic. EYES: Pupils equal round and reactive. Extraocular motions intact. No scleral icterus. No injection or drainage. ENT: Nose without bleeding or purulent drainage. Airway patent. NECK: Trachea midline. No lymphadenopathy. CARDIOVASCULAR: Regular rate and rhythm without murmurs, gallops, or rubs. RESPIRATORY: Clear to auscultation. Breath sounds equal bilaterally. No wheezes , rales, or rhonchi. GASTROINTESTINAL: Abdomen soft, non-tender, nondistended. MUSCULOSKELETAL: No edema appreciated on exam. NEUROLOGICAL: Awake and alert. Able to move all extremities spontaneously. Motor and sensory grossly within normal limits. Normal speech. Medications and IVs Current Medications Medications (Trade) Dose Ordered Sig/Adair Route Start Time Stop Time Status Last Admin (Catapres) 0.1 mg Q8HR PRN PO 01/31/17 23:15 02/01/17 00:37 (NS Flush) 2 ml UNSCH PRN IV FLUSH 01/31/17 23:15 (NS Flush) 2 ml BID IV FLUSH 02/01/17 09:00 (Tylenol) 650 mg Q4H PRN PO 01/31/17 23:15 (Zofran Inj) 4 mg Q6H PRN IVP 01/31/17 23:15 (Heparin Inj) 5,000 units Q8H SQ 01/31/17 23:15 02/01/17 00:37 (Narcan Inj) 0.4 mg UNSCH PRN IV PUSH 01/31/17 23:15 (Senokot) 17.2 mg Q12H PRN PO 01/31/17 23:15 (Dulcolax Supp) 10 mg DAILY PRN RECTAL 01/31/17 23:15 (D50w (Vial) Inj) 50 ml UNSCH PRN IV PUSH 01/31/17 23:30 (Glucagon Inj) 1 mg UNSCH PRN OTHER 01/31/17 23:30 (NovoLOG SUPPLEMENTAL SCALE) 1 ACHS SLIDING SCALE SQ 02/01/17 08:00 (Duoneb Neb) 1 ampule Q4HR NEB PRN NEB 01/31/17 23:30 (Cathflo Activase Inj) 2 mg NOW INTRACATH 02/01/17 09:00 02/03/17 09:01 (Norvasc) 5 mg DAILY PO 02/01/17 12:00 (Lopressor) 25 mg Q12HR PO 02/01/17 21:00 Sodium Chloride 1,000 ml @ 0 mls/hr Q0M PRN OTHER 02/01/17 11:13 (Heparin Inj) 8,000 units UNSCH PRN IV FLUSH 02/01/17 11:15 Sodium Chloride 1,000 ml @ 200 mls/hr Q5H PRN IV 02/01/17 11:13 Sodium Chloride 1,000 ml @ 0 mls/hr Q0M PRN OTHER 02/01/17 11:13 (Mannitol Inj) 12.5 gm UNSCH PRN IV 02/01/17 11:15 Albumin Human 100 ml @ 60 mls/hr UNSCH PRN IV 02/01/17 11:15 (NS Flush) 5 ml UNSCH PRN IV FLUSH 02/01/17 11:15 (Heparin Inj) UNSCH PRN .XX 02/01/17 11:15 (Gentamicin (Dialysis) Inj) 20 mg UNSCH PRN OTHER 02/01/17 11:15 (Zofran Inj) 4 mg UNSCH PRN IV PUSH 02/01/17 11:15 (Tylenol) 650 mg UNSCH PRN PO 02/01/17 11:15 (Benadryl) 25 mg UNSCH PRN PO 02/01/17 11:15 (Nitrostat Sl) 0.4 mg UNSCH PRN SL 02/01/17 11:15 (Catapres) 0.1 mg UNSCH PRN PO 02/01/17 11:15 (Epogen Inj) 10,000 units UNSCH PRN IV PUSH 02/01/17 11:15 (Gelfoam 12 Mm/7 Mm Top) 1 foam UNSCH PRN TOP 02/01/17 11:15 (NS Flush) UNSCH PRN IV FLUSH 02/01/17 16:15 (Heparin Inj) UNSCH PRN IV FLUSH 02/01/17 16:15 A/P Assessment and Plan 1. PermCath dysfunction Interventional radiology consulted for evaluation of her catheter - s/p tunneling 2. ESRD on dialysis s/p HD today with 5L removed Nephrology consulted, appreciate recommendations 3. Insulin-dependent diabetes mellitus Resume home medications once reconciliation complete SSI Monitor blood glucose 4. Hypertension/hyperlipidemia Continue home medications FEN NPO Electrolytes: monitor and replete prn Discharge patient to home Condition on discharge: Improved Heart healthy diabetic Diet as tolerated Ad Karen activity Rx written: Resume home medications Follow-up with primary care physician, Dr. Kemp of nephrology More Acharya Feb 01, 2017 17:22
--- NOTE | 2017-02-01 17:27 | MB ---
cc: CLAUDIA HERMAN MD DATE OF CONSULTATION 02/01/17 REASON FOR CONSULTATION End-stage renal disease on hemodialysis for management. HISTORY OF PRESENT ILLNESS This is a 51-year-old female known to me from before with past medical history of hypertension, diabetes mellitus, peripheral neuropathy, history of legal blindness, hyperlipidemia, end-stage renal disease on hemodialysis three times per week who came to the hospital with malfunction of the PermCath. The patient has been on hemodialysis for the last three or four months. She has this PermCath which has been changed last three or four times. She had one episode of infection and she was admitted here. This catheter is relatively new and it was not working last Sunday and Sunday when she went for dialysis. She was supposed to go to get this catheter changed and she ended up coming to the hospital. The patient did not have dialysis for almost a week. She has mild shortness of breath, especially on exertion, and has generalized weakness and feeling tired. There is mild nausea. There is no vomiting. No abdominal pain. She has increased swelling of her legs and is able to walk with the walker, but because of the pain for the last couple of days she is not walking much. The patient lives at home alone and she has two sisters that live very close by and they take care of her. She has no history of chest pain. Her appetite is gradually improving. The patient was in a nursing facility and she recently moved to home. PAST MEDICAL HISTORY 1. Hypertension, 2. Diabetes mellitus, 3. Peripheral neuropathy 4. Legal blindness, 5. Hyperlipidemia, 6. End-stage renal disease on hemodialysis. PAST SURGICAL HISTORY History of Perma-Cath placement and removal multiple times. REVIEW OF SYSTEMS There is no history of fever. No headache. She has generalized weakness, feeling tired, has shortness of breath on exertion, occasional nausea. There is no vomiting. No history of dysuria or hematuria. She has increased swelling of her legs. SOCIAL HISTORY The patient is single. She lives alone. There is no history of smoking or alcoholism. FAMILY HISTORY positive for diabetes and hypertension. ALLERGIES MORPHINE VANCOMYCIN FENTANYL MEDICATIONS Currently she is on following medications 1. Heparin 5000 units subcu q. 8-hour. 2. Clonidine p.r.n. 3. Insulin aspart sliding scale PHYSICAL EXAMINATION GENERAL: The patient is awake, alert. She is currently on dialysis. VITAL SIGNS: Her last blood pressure 189/86, temperature 98.7, oxygen saturation 95-96%. HEENT: Pupils are mid constricted. Nonicteric sclerae, conjunctivae pale. NECK: Supple. JVD is not elevated. LUNGS: The patient has bilateral good air entry with occasional wheezing. HEART: S1, S2 regular rhythm. ABDOMEN: Distended, soft lax. There is no tenderness. EXTREMITIES: She has bilateral 2+ leg edema LABORATORY DATA WBC count is 5.6, hemoglobin 8.8, platelet count of 203, neutrophils 50.6. Sodium 139. Potassium 3.8, chloride 106, bicarb 24, BUN 50, creatinine 4.3, glucose 273. Calcium 8.9, phosphorus 1.8, total bilirubin is 0.2, AST, ALT normal, total protein 8.9 with albumin of 3.1, BNP is 111. INR 1.1. Urinalysis showing protein of 300, small leukocyte esterase, rare bacteria. Urine culture pending. IMAGING STUDIES The patient had chest x-ray done yesterday and it shows lung field is clear. ASSESSMENT/PLAN 1. Malfunction of the PermCath. 2. End-stage renal disease on hemodialysis. 3. Fluid overload status. 4. Hypertension, not controlled. 5. Diabetes mellitus 6. Anemia. The patient is now on hemodialysis. She was given Activase and the catheter is working but has high pressures. She is still n.p.o. and is supposed to go interventional radiology after the dialysis to see if anything can be done with the catheter to improve the flow and avoid this problem in the future. Her blood pressure is on the higher side. She is not started on routine medications. The hemoglobin is low. I will give her Epogen with the dialysis. She has been on Norvasc and metoprolol. I will start both. Thank you for the consultation. I will follow the patient while she is in the hospital. MD TAVARES Bran/ /11:08 AM /4:58 PM
--- NOTE | 2017-02-01 17:36 | HHI.DCPOC ---
Discharge Care Plan Diagnosis: (1) End stage kidney disease (2) Hemodialysis catheter dysfunction Goals to Promote Your Health * To prevent worsening of your condition and complications * To maintain your health at the optimal level Directions to Meet Your Goals Please go to dialysis tomorrow Friday 02/02, Saturday 02/03 and Wednesday 02/07 - then resume regular Sunday, Sunday, Sunday schedule. Take your medications as prescribed Follow your dietary instruction Follow activity as directed Keep your appointments as scheduled Take your immunizations and boosters as scheduled If your symptoms worsen call your PCP, if no PCP go to Urgent Care Center or Emergency Room Smoking is Dangerous to Your Health. Avoid second hand smoke Call the 24-hour hour crisis hotline for domestic abuse at More Acharya Feb 01, 2017 17:36
[2017-02-01] MEDS ORDERED: METOPROLOL TARTRATE 25 MG TAB PO SCH (21:00)
--- NOTE | 2017-02-02 09:45 | RADRPT ---
EXAM DATE/TIME: 02/01/2017 00:00 [facility] COMPARISON: CENTRAL VENOUS CATHETER REMOVAL, TUNNELED RIGHT, January 03, 2017, 0:00. INDICATIONS : Patient with non-functioning tunnelled dialysis catheter in need of removal. MEDICAL HISTORY : HTN, ESRD, Diabetes, A-Fib, CVA, COPD CHF, MRSA, GERD, Chronic anemia, HLD, DDD, Legally blind, Neur opathy, GI bleed, PE SURGICAL HISTORY : Dialysis catheter placement ENCOUNTER: Subsequent ACUITY: 1 week PAIN SCORE: 9/10 LOCATION: Bilateral legs and feet FLUORO TIME: 1.6 minutes IMAGE SERIES: 3 SEDATION TIME: 20minutes MEDICATION(S): 1.) 1.5 mg midazolam (Versed) IV PROCEDURE : 1. PermaCath removal. The risks, benefits and alternatives to the procedure were explained and verbal and written consent w as obtained. The site was prepped in sterile fashion. Full sterile technique was used, including ca p, mask, sterile gloves and gown and a large sterile sheet. Hand hygiene and 2% chlorhexidine and/or betadine/alcohol prep was utilized per protocol for cutaneous antisepsis. The skin and subcutaneous tissues were infiltrated with local anesthetic solution. The tract was anesthetized with 1% Lidocaine using. The Permcath was dissected from the subcutaneous tissues and easily removed in one piece. Manual pressure was applied to the venotomy site until hem ostasis was obtained. Sterile dressing was applied. The patient tolerated the procedure well and there were no complications. CONCLUSION: Uncomplicated Permcath removal. Micheal Mccoy MD on February 02, 2017 at 9:43 Board Certified Radiologist. This report was verified electronically.
--- NOTE | 2017-02-02 13:22 | RADRPT ---
EXAM DATE/TIME: 02/01/2017 16:00 [facility] COMPARISON: PERM CV CATH PLCMT W US RIGHT, January 08, 2017, 11:03. INDICATIONS : Patient with history of end stage renal disease in need of tunnelled dialysis catheter placement. Pre viously placed right IJ device showed poor function soon after implantation, has been revised once an d still has poor function. This appears to be due to cephalad migration of the catheter in the region of the cervical dermatotomy. MEDICAL HISTORY : HTN, ESRD, Diabetes, A-Fib, CVA, COPD CHF, MRSA, GERD, Chronic anemia, HLD, DDD, Legally blind, Neur opathy, GI bleed, PE SURGICAL HISTORY : Dialysis catheter placement ENCOUNTER: Subsequent ACUITY: 1 week PAIN SCORE: 9/10 LOCATION: Bilateral legs and feet FLUORO TIME: 1.4 minutes IMAGE SERIES: 3 SEDATION TIME: 20 minutes ACCESS: Right subclavian vein SEDATION: 1.) 1.5 mg midazolam (Versed) IV Prophylactic antibiotics were administered with appropriate pre-procedure timing. Vancomycin within 2 hours of procedure, Ancef (or alternative) within 1 hour of procedure. DEVICE: 1. 15 Urdu dual lumen 23 cm Ferris II Plus catheter PROCEDURE : 1. Ultrasound-guided venipuncture. 2. PermaCath placement. 3. Conscious sedation with continuous EKG and oximetry monitoring. The risks, benefits and alternatives to the procedure were explained and verbal and written consent w as obtained. The site was prepped in sterile fashion. Full sterile technique was used, including ca p, mask, sterile gloves and gown and a large sterile sheet. Hand hygiene and 2% chlorhexidine and/or betadine/alcohol prep was utilized per protocol for cutaneous antisepsis. Sterile gel and sterile p robe cover were utilized for ultrasound guidance. The skin and subcutaneous tissues were infiltrated with local anesthetic solution. With ultrasound and fluoroscopic guidance a dermatotomy was created over the prescribed vein. A micr opuncture set was used to access the targeted vein and serial dilatation was performed to accept the prescribed length catheter. A subcutaneous tunnel was created in a retrograde fashion the catheter w as pulled through the tunnel. The catheter was flushed and assembled and locked with heparin. The c atheter was sutured in place. Conscious sedation was performed with the prescribed dosages and duration as above in the presence of an independent trained radiology nurse to assist in the monitoring of the patient. EKG and oximetry remained stable throughout the procedure. The patient tolerated the procedure well and there were n o complications. The patient was sent to post anesthesia recovery in stable condition. CONCLUSION: 1. Uncomplicated PermaCath placement as above. 2. This was done in conjunction with removal of the previously placed, poorly functioning right IJ de vice. Micheal Mccoy MD on February 02, 2017 at 13:16 Board Certified Radiologist. This report was verified electronically.
== END 2017-02-01 19:25 | disposition home or self-care (01) ==
LOC: NEPE 19:21 → NEDA 23:07 → NEDH 02-01 03:12 → NEPGCP 02-01 05:39
PROVIDERS: ADMIT Family Medicine; ATTEND Family Medicine
DX: T82.41XA Breakdown (mechanical) of vascular dialysis catheter, initial encounter (principal); R53.1 Weakness; R06.02 Shortness of breath; R51 Headache; R11.0 Nausea; D64.9 Anemia, unspecified; M79.89 Other specified soft tissue disorders; I13.2 Hypertensive heart and chronic kidney disease with heart failure and with stage 5 chronic kidney disease, or end stage renal disease; I50.32 Chronic diastolic (congestive) heart failure; E11.22 Type 2 diabetes mellitus with diabetic chronic kidney disease; N18.6 End stage renal disease; E11.42 Type 2 diabetes mellitus with diabetic polyneuropathy; J44.9 Chronic obstructive pulmonary disease, unspecified; K21.9 Gastro-esophageal reflux disease without esophagitis; E78.00 Pure hypercholesterolemia, unspecified; G47.33 Obstructive sleep apnea (adult) (pediatric); H54.8 Legal blindness, as defined in USA; M19.90 Unspecified osteoarthritis, unspecified site; Z99.2 Dependence on renal dialysis; Z79.4 Long term (current) use of insulin; Z79.899 Other long term (current) drug therapy; Z86.711 Personal history of pulmonary embolism; Z86.73 Personal history of transient ischemic attack (TIA), and cerebral infarction without residual deficits; Z91.19 Patient's noncompliance with other medical treatment and regimen; Y71.2 Prosthetic and other implants, materials and accessory cardiovascular devices associated with adverse incidents
CPT/HCPCS: 36558; 36589; 71020; 76937; 77001; 80053; 81001; 82948; 83735; 83880; 85025; 85610; 85730; 87086; 90935; 96372; 96374; 96375; 99152; 99153; 99285; C1750; C1769; G0378; J0690; J1644; J2250